=== PATIENT | female | born 1950 | race American Indian/Alaskan Native ===

== ENCOUNTER 2018-02-26 11:26 | Inpatient (IN) | payer MEDICARE ==
--- NOTE | 2018-02-26 15:20 | Emergency Department Report ---
ED Medical Clearance HPI - General Chief complaint: Medical Clearance Stated complaint: WITHDRAWLS/BODY PAIN Time Seen by Provider: 02/26/18 15:08 Source: patient Mode of arrival: Stretcher - History of Present Illness Initial comments: Patient is here for detox. on withdrawal from Oxycodone. Complaint: medical clearance request -: Gradual Reason for Medical Clearance: other (Oxycodone dependance) Place: home Alledged Intoxication: No Compliant with Home Medications: Yes Traumatic Symptoms: denies traumatic injury Associated Symptoms: palpitations, nausea/vomiting, other (diarrhea, pain all over) Treatments Prior to Arrival: none Home medications: Previous Rx's Medication Instructions Recorded Last Taken Type ALBUTEROL NEB's [Proventil 0.083% 2.5 mg IH Q4HRT PRN #1 nebu 01/29/18 Unknown Rx NEBS] Metoprolol [Lopressor TAB] 25 mg PO BID #60 tablet 01/29/18 Unknown Rx Sertraline [Zoloft] 50 mg PO QDAY #30 tablet 01/29/18 Unknown Rx dilTIAZem CD [Cardizem CD] 240 mg PO QDAY #30 capsule 01/29/18 Unknown Rx oxyCODONE /ACETAMINOPHEN [Percocet 1 tab PO Q6H PRN #10 tablet 01/29/18 Unknown Rx 5/325 mg] Allergies/Adverse reactions: Allergies Allergy/AdvReac Type Severity Reaction Status Date / Time No Known Allergies Allergy Unverified 01/26/18 13:56 ED Review of Systems ROS: Stated complaint: WITHDRAWLS/BODY PAIN Other details as noted in HPI Comment: All other systems reviewed and negative Constitutional: malaise, other (Pain all over her body). denies: chills, fever Eyes: denies: eye pain, eye discharge, vision change ENT: denies: ear pain, throat pain Respiratory: denies: cough, shortness of breath, wheezing Cardiovascular: palpitations. denies: chest pain Endocrine: no symptoms reported Gastrointestinal: nausea, vomiting, diarrhea. denies: abdominal pain Genitourinary: denies: urgency, dysuria, discharge Musculoskeletal: denies: back pain, joint swelling, arthralgia Skin: denies: rash, lesions Neurological: denies: headache, weakness, paresthesias Psychiatric: denies: anxiety, depression Hematological/Lymphatic: denies: easy bleeding, easy bruising ED Past Medical Hx - Past Medical History Hx Hypertension: Yes Hx Heart Attack/AMI: No Hx Congestive Heart Failure: Yes Hx Deep Vein Thrombosis: No Hx Pulmonary Embolism: No Hx GERD: Yes Hx Arthritis: Yes Hx Asthma: No Hx COPD: Yes Hx Tuberculosis: No Additional medical history: chronic back pain - Surgical History Past Surgical History?: Yes Hx Coronary Stent: No Hx Pacemaker: No Hx Internal Defibrillator: No Additional Surgical History: hernia repair and lower back/ cycst removal - Social History Smoking Status: Never Smoker Substance Use Type: Other - Medications Home Medications: Home Medications Medication Instructions Recorded Confirmed Last Taken Type ALBUTEROL NEB's [Proventil 0.083% 2.5 mg IH Q4HRT PRN #1 nebu 01/29/18 Unknown Rx NEBS] Metoprolol [Lopressor TAB] 25 mg PO BID #60 tablet 01/29/18 Unknown Rx Sertraline [Zoloft] 50 mg PO QDAY #30 tablet 01/29/18 Unknown Rx dilTIAZem CD [Cardizem CD] 240 mg PO QDAY #30 capsule 01/29/18 Unknown Rx oxyCODONE /ACETAMINOPHEN [Percocet 1 tab PO Q6H PRN #10 tablet 01/29/18 Unknown Rx 5/325 mg] ED Physical Exam - General Limitations: No Limitations General appearance: alert, in no apparent distress, anxious - Head Head exam: Present: atraumatic, normocephalic - Eye Eye exam: Present: normal appearance Pupils: Present: mydriatic - ENT ENT exam: Present: mucous membranes moist - Neck Neck exam: Present: normal inspection - Respiratory Respiratory exam: Present: normal lung sounds bilaterally. Absent: respiratory distress - Cardiovascular Cardiovascular Exam: Present: regular rate, normal rhythm. Absent: systolic murmur, diastolic murmur, rubs, gallop - GI/Abdominal GI/Abdominal exam: Present: soft, normal bowel sounds. Absent: tenderness, guarding - Extremities Exam Extremities exam: Present: normal inspection, normal capillary refill - Back Exam Back exam: Present: normal inspection - Neurological Exam Neurological exam: Present: alert, oriented X3 - Psychiatric Psychiatric exam: Present: normal affect, normal mood - Skin Skin exam: Present: warm, dry, intact, normal color. Absent: rash ED Course Vital Signs 02/26/18 02/26/18 02/26/18 11:44 14:28 17:50 Temperature 98.3 F 99.0 F Pulse Rate 89 75 Respiratory 20 17 17 Rate Blood Pressure 151/95 165/81 O2 Sat by Pulse 100 96 Oximetry - Consultations Consultation #1: 02/26/18 17:05 Dr Turner to admit. Consultation #2: 02/26/18 17:05 New vision case management specialist Mr Gui Connors will try to place patient tomorrow. ED Medical Decision Making - Lab Data Result diagrams: 02/27/18 04:34 02/27/18 04:34 Lab Results 02/26/18 02/26/18 02/26/18 Range/Units 15:26 15:26 15:26 WBC 7.6 (4.5-11.0) K/mm3 RBC 4.64 (3.65-5.03) M/mm3 Hgb 13.6 (10.1-14.3) gm/dl Hct 41.1 (30.3-42.9) % MCV 89 (79-97) fl MCH 29 (28-32) pg MCHC 33 (30-34) % RDW 16.3 H (13.2-15.2) % Plt Count 268 (140-440) K/mm3 Lymph % (Auto) 25.0 (13.4-35.0) % [place] % (Auto) 6.5 (0.0-7.3) % Eos % (Auto) 2.6 (0.0-4.3) % Baso % (Auto) 0.6 (0.0-1.8) % Lymph # 1.9 (1.2-5.4) K/mm3 [place] # 0.5 (0.0-0.8) K/mm3 Eos # 0.2 (0.0-0.4) K/mm3 Baso # 0.0 (0.0-0.1) K/mm3 Seg Neutrophils % 65.3 (40.0-70.0) % Seg Neutrophils # 4.9 (1.8-7.7) K/mm3 Sodium 142 (137-145) mmol/L Potassium 4.0 (3.6-5.0) mmol/L Chloride 100.1 (98-107) mmol/L Carbon Dioxide 26 (22-30) mmol/L Anion Gap 20 mmol/L BUN 14 (7-17) mg/dL Creatinine 1.1 (0.7-1.2) mg/dL Estimated GFR 60 ml/min BUN/Creatinine Ratio 13 % Glucose 88 (65-100) mg/dL Calcium 9.8 (8.4-10.2) mg/dL Total Bilirubin 0.40 (0.1-1.2) mg/dL AST 16 (5-40) units/L ALT 10 (7-56) units/L Alkaline Phosphatase 86 (35-129) units/L Total Protein 7.5 (6.3-8.2) g/dL Albumin 4.5 (3.9-5) g/dL Albumin/Globulin Ratio 1.5 % TSH 1.150 (0.270-4.200) mlU/mL Salicylates (2.8-20.0) mg/dL Acetaminophen (10.0-30.0) ug/mL Plasma/Serum Alcohol (0-0.07) % 02/26/18 02/26/18 02/26/18 Range/Units 15:26 15:26 15:26 WBC (4.5-11.0) K/mm3 RBC (3.65-5.03) M/mm3 Hgb (10.1-14.3) gm/dl Hct (30.3-42.9) % MCV (79-97) fl MCH (28-32) pg MCHC (30-34) % RDW (13.2-15.2) % Plt Count (140-440) K/mm3 Lymph % (Auto) (13.4-35.0) % [place] % (Auto) (0.0-7.3) % Eos % (Auto) (0.0-4.3) % Baso % (Auto) (0.0-1.8) % Lymph # (1.2-5.4) K/mm3 [place] # (0.0-0.8) K/mm3 Eos # (0.0-0.4) K/mm3 Baso # (0.0-0.1) K/mm3 Seg Neutrophils % (40.0-70.0) % Seg Neutrophils # (1.8-7.7) K/mm3 Sodium (137-145) mmol/L Potassium (3.6-5.0) mmol/L Chloride (98-107) mmol/L Carbon Dioxide (22-30) mmol/L Anion Gap mmol/L BUN (7-17) mg/dL Creatinine (0.7-1.2) mg/dL Estimated GFR ml/min BUN/Creatinine Ratio % Glucose (65-100) mg/dL Calcium (8.4-10.2) mg/dL Total Bilirubin (0.1-1.2) mg/dL AST (5-40) units/L ALT (7-56) units/L Alkaline Phosphatase (35-129) units/L Total Protein (6.3-8.2) g/dL Albumin (3.9-5) g/dL Albumin/Globulin Ratio % TSH (0.270-4.200) mlU/mL Salicylates < 0.3 L (2.8-20.0) mg/dL Acetaminophen < 5.0 L (10.0-30.0) ug/mL Plasma/Serum Alcohol < 0.01 (0-0.07) % - Medical Decision Making Opioid Withdrawal. Patient to be evaluated by [facility] tomorrow for placement. ED Disposition Clinical Impression: Narcotic dependence, Opioid withdrawal delirium, acute, hyperactive Disposition: OP ADMIT IP TO THIS HOSP Is pt being admited?: Yes Does the pt Need Aspirin: No Condition: Stable Time of Disposition: 17:02
[2018-02-26 15:50] LABS: Basophils % (Auto) 0.6 % (0.0-1.8); Eosinophils # (Auto) 0.2 K/mm3 (0.0-0.4); Eosinophils % (Auto) 2.6 % (0.0-4.3); Hematocrit 41.1 % (30.3-42.9); Hemoglobin 13.6 gm/dl (10.1-14.3); Lymphocytes # (Auto) 1.9 K/mm3 (1.2-5.4); Mean Corpuscular HGB Conc 33 % (30-34); Mean Corpuscular Volume 89 fl (79-97); Monocytes # (Auto) 0.5 K/mm3 (0.0-0.8); Monocytes % (Auto) 6.5 % (0.0-7.3); Platelet Count 268 K/mm3 (140-440); Red Blood Count 4.64 M/mm3 (3.65-5.03); Red Cell Distribution Width 16.3 % (13.2-15.2)
[2018-02-26] MEDS ORDERED: MORPHINE IV ONE (15:55)
[2018-02-26] MEDS ORDERED: ZOFRAN IV ONE (15:55)
[2018-02-26 16:06] LABS: Albumin 4.5 g/dL (3.9-5); Calcium 9.8 mg/dL (8.4-10.2)
--- NOTE | 2018-02-26 16:43 | XRay Report ---
FINAL REPORT EXAM: XR CHEST 1V AP HISTORY: Medical Clearance Psych COMPARISON: Chest radiograph performed on 01/27/2018 TECHNIQUE: Single frontal view of the chest FINDINGS: The cardiomediastinal silhouette is normal in appearance. The lungs are clear without focal consolidation. There is no pleural effusion or pneumothorax. There is no acute soft tissue or osseous abnormality. IMPRESSION: No acute cardiopulmonary disease.
--- NOTE | 2018-02-26 17:14 | History and Physical Report ---
History of Present Illness Date of examination: 02/26/18 Date of admission: 02/26/18 Chief complaint: Opiate dependence and wants he;p with withdrawing History of present illness: 67 y/o AAF with pmh of HTN Deprssion and severe LBP is here for detox. on withdrawal from Oxycodone.with medical clearance request.Patient appparently takes Oxycodone 30 mg po 4 times a day for LBP.Had back surgery.Also has RA for which she is not getting any treatment.Says she has side effects with Methotrexate. Compliant with Home Medications: Yes Traumatic Symptoms: denies traumatic injury Associated Symptoms: palpitations, nausea/vomiting, other (diarrhea, pain all over) Treatments Prior to Arrival: none Past Medical History Hx Hypertension: Yes Hx GERD: Yes Hx Arthritis: Yes--RA Additional medical history: chronic back pain Surgical History Past Surgical History?: Yes Additional Surgical History: hernia repair and lower back/ cycst removal Social History Smoking Status: Never Smoker Substance Use Type: Other Medications Home Medications: Home Medications Medication Instructions Recorded Confirmed Last Taken Type ALBUTEROL NEB's [Proventil 0.083% 2.5 mg IH Q4HRT PRN #1 nebu 01/29/18 Unknown Rx NEBS] Metoprolol [Lopressor TAB] 25 mg PO BID #60 tablet 01/29/18 Unknown Rx Sertraline [Zoloft] 50 mg PO QDAY #30 tablet 01/29/18 Unknown Rx dilTIAZem CD [Cardizem CD] 240 mg PO QDAY #30 capsule 01/29/18 Unknown Rx oxyCODONE /ACETAMINOPHEN [Percocet 1 tab PO Q6H PRN #10 tablet 01/29/18 Unknown Rx 5/325 mg] Review of Systems ROS: Stated complaint: WITHDRAWLS/BODY PAIN Other details as noted in HPI Comment: All other systems reviewed and negative Constitutional: malaise, other (Pain all over her body). denies: chills, fever Eyes: denies: eye pain, eye discharge, vision change ENT: denies: ear pain, throat pain Respiratory: denies: cough, shortness of breath, wheezing Cardiovascular: palpitations. denies: chest pain Endocrine: no symptoms reported Gastrointestinal: nausea, vomiting, diarrhea. denies: abdominal pain Genitourinary: denies: urgency, dysuria, discharge Musculoskeletal: denies: back pain, joint swelling, arthralgia Skin: denies: rash, lesions Neurological: denies: headache, weakness, paresthesias Psychiatric: denies: anxiety, depression Hematological/Lymphatic: denies: easy bleeding, easy bruising Medications and Allergies Allergies Allergy/AdvReac Type Severity Reaction Status Date / Time No Known Allergies Allergy Unverified 01/26/18 13:56 Home Medications Medication Instructions Recorded Confirmed Last Taken Type ALBUTEROL NEB's [Proventil 0.083% 2.5 mg IH Q4HRT PRN #1 nebu 01/29/18 Unknown Rx NEBS] Metoprolol [Lopressor TAB] 25 mg PO BID #60 tablet 01/29/18 Unknown Rx Sertraline [Zoloft] 50 mg PO QDAY #30 tablet 01/29/18 Unknown Rx dilTIAZem CD [Cardizem CD] 240 mg PO QDAY #30 capsule 01/29/18 Unknown Rx oxyCODONE /ACETAMINOPHEN [Percocet 1 tab PO Q6H PRN #10 tablet 01/29/18 Unknown Rx 5/325 mg] Active Meds: Active Medications Buprenorphine HCl (Suboxone 2 Mg-0.5 Mg) 2 each SL Q8HR ANGELES Stop: 02/27/18 06:01 Exam - Constitutional Vitals: Temp Pulse Resp BP Pulse Ox 98.3 F 89 17 151/95 100 02/26/18 11:44 02/26/18 11:44 02/26/18 14:28 02/26/18 11:44 02/26/18 11:44 General appearance: Present: no acute distress, well-nourished - EENT Eyes: Present: PERRL ENT: hearing intact, clear oral mucosa - Neck Neck: Present: supple, normal ROM - Respiratory Respiratory effort: normal Respiratory: bilateral: CTA - Cardiovascular Heart rate: 78 Rhythm: regular Heart Sounds: Present: S1 & S2. Absent: rub, click - Extremities Extremities: pulses symmetrical, No edema Peripheral Pulses: within normal limits - Abdominal General gastrointestinal: Present: soft, non-tender, non-distended, normal bowel sounds Female genitourinary: Present: normal - Integumentary Integumentary: Present: clear, warm, dry - Musculoskeletal Musculoskeletal: gait normal, strength equal bilaterally - Psychiatric Psychiatric: appropriate mood/affect, intact judgment & insight - Neurologic Neurologic: CNII-XII intact, moves all extremities - Allied Health Allied health notes reviewed: nursing, case management Results - Labs CBC & Chem 7: 02/27/18 04:34 02/27/18 04:34 Labs: Laboratory Last Values WBC 7.6 K/mm3 (4.5-11.0) 02/26/18 15:26 RBC 4.64 M/mm3 (3.65-5.03) 02/26/18 15:26 Hgb 13.6 gm/dl (10.1-14.3) 02/26/18 15:26 Hct 41.1 % (30.3-42.9) 02/26/18 15:26 MCV 89 fl (79-97) 02/26/18 15:26 MCH 29 pg (28-32) 02/26/18 15:26 MCHC 33 % (30-34) 02/26/18 15:26 RDW 16.3 % (13.2-15.2) H 02/26/18 15:26 Plt Count 268 K/mm3 (140-440) 02/26/18 15:26 Lymph % (Auto) 25.0 % (13.4-35.0) 02/26/18 15:26 [place] % (Auto) 6.5 % (0.0-7.3) 02/26/18 15:26 Eos % (Auto) 2.6 % (0.0-4.3) 02/26/18 15:26 Baso % (Auto) 0.6 % (0.0-1.8) 02/26/18 15:26 Lymph # 1.9 K/mm3 (1.2-5.4) 02/26/18 15:26 [place] # 0.5 K/mm3 (0.0-0.8) 02/26/18 15:26 Eos # 0.2 K/mm3 (0.0-0.4) 02/26/18 15:26 Baso # 0.0 K/mm3 (0.0-0.1) 02/26/18 15:26 Seg Neutrophils % 65.3 % (40.0-70.0) 02/26/18 15:26 Seg Neutrophils # 4.9 K/mm3 (1.8-7.7) 02/26/18 15:26 Sodium 142 mmol/L (137-145) 02/26/18 15:26 Potassium 4.0 mmol/L (3.6-5.0) 02/26/18 15:26 Chloride 100.1 mmol/L (98-107) 02/26/18 15:26 Carbon Dioxide 26 mmol/L (22-30) 02/26/18 15:26 Anion Gap 20 mmol/L 02/26/18 15:26 BUN 14 mg/dL (7-17) 02/26/18 15:26 Creatinine 1.1 mg/dL (0.7-1.2) 02/26/18 15:26 Estimated GFR 60 ml/min 02/26/18 15:26 BUN/Creatinine Ratio 13 % 02/26/18 15:26 Glucose 88 mg/dL (65-100) 02/26/18 15:26 Calcium 9.8 mg/dL (8.4-10.2) 02/26/18 15:26 Total Bilirubin 0.40 mg/dL (0.1-1.2) 02/26/18 15:26 AST 16 units/L (5-40) 02/26/18 15:26 ALT 10 units/L (7-56) 02/26/18 15:26 Alkaline Phosphatase 86 units/L (35-129) 02/26/18 15:26 Total Protein 7.5 g/dL (6.3-8.2) 02/26/18 15:26 Albumin 4.5 g/dL (3.9-5) 02/26/18 15:26 Albumin/Globulin Ratio 1.5 % 02/26/18 15:26 TSH 1.150 mlU/mL (0.270-4.200) 02/26/18 15:26 Salicylates < 0.3 mg/dL (2.8-20.0) L 02/26/18 15:26 Acetaminophen < 5.0 ug/mL (10.0-30.0) L 02/26/18 15:26 Plasma/Serum Alcohol < 0.01 % (0-0.07) 02/26/18 15:26 - Imaging and Cardiology Chest x-ray: report reviewed (NAF) Assessment and Plan Advance Directives: Yes (FC) VTE prophylaxis?: Chemical - Patient Problems (1) Opiate dependence Current Visit: Yes Status: Chronic Qualifiers: Substance use status: uncomplicated Qualified Code(s): F11.20 - Opioid dependence, uncomplicated Plan to address problem: Patient inited on Suboxone for 3 days. 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
[2018-02-26] MEDS ORDERED: ZOFRAN IV PRN (17:30)
[2018-02-26] MEDS ORDERED: ZOLOFT ONE (18:57)
[2018-02-26] MEDS: SUBOXONE 2 MG-0.5 MG SL SCH (18:58)
[2018-02-26] MEDS: ZOLOFT PO SCH (18:59)
[2018-02-26] MEDS: CARDIZEM CD PO SCH (18:59)
[2018-02-26] MEDS: AMBIEN PO PRN (22:53)
[2018-02-26] MEDS: LOPRESSOR PO SCH (22:53)
[2018-02-26] MEDS: SODIUM CHLORIDE FLUSH SYRINGE 10 ML IV SCH (22:54)
[2018-02-27] MEDS: SUBOXONE 2 MG-0.5 MG SL SCH ×4 (03:03→18:25)
[2018-02-27 05:10] LABS: Basophils # (Auto) 0.1 K/mm3 (0.0-0.1); Basophils % (Auto) 0.7 % (0.0-1.8); Eosinophils # (Auto) 0.4 K/mm3 (0.0-0.4); Eosinophils % (Auto) 4.4 % (0.0-4.3); Hematocrit 37.6 % (30.3-42.9); Hemoglobin 12.4 gm/dl (10.1-14.3); Lymphocytes # (Auto) 1.8 K/mm3 (1.2-5.4); Lymphocytes % (Auto) 21.7 % (13.4-35.0); Mean Corpuscular HGB Conc 33 % (30-34); Mean Corpuscular Volume 89 fl (79-97); Monocytes # (Auto) 0.8 K/mm3 (0.0-0.8); Monocytes % (Auto) 9.4 % (0.0-7.3); Platelet Count 222 K/mm3 (140-440); Red Blood Count 4.21 M/mm3 (3.65-5.03); Red Cell Distribution Width 16.4 % (13.2-15.2)
[2018-02-27 05:29] LABS: Albumin 4.5 g/dL (3.9-5); Calcium 9.4 mg/dL (8.4-10.2)
[2018-02-27 06:09] LABS: Amphetamine Screen,Urine PRESUMPTIVE NEGATIVE; Cannabinoid Screen,Urine PRESUMPTIVE NEGATIVE; Cocaine Screen,Urine PRESUMPTIVE NEGATIVE; Methadone Screen,Urine PRESUMPTIVE NEGATIVE
[2018-02-27 06:14] LABS: Bilirubin,Urine NEG (Negative); Blood,Urine NEG (Negative); Color,Urine Yellow (Yellow); Hyaline Casts,Urine 3 /LPF; Mucus,Urine FEW /HPF; Urobilinogen,Urine < 2.0 mg/dL (<2.0)
[2018-02-27 06:41] LABS: Benzodiazepines Screen,Urine PRESUMPTIVE POSITIVE; Opiate Screen,Urine PRESUMPTIVE POSITIVE
[2018-02-27] MEDS: LOPRESSOR PO SCH ×3 (06:56→21:49)
[2018-02-27] MEDS: TYLENOL PO PRN (06:57)
[2018-02-27] MEDS ORDERED: LOVENOX SUB-Q SCH (10:00)
[2018-02-27] MEDS: ZOLOFT PO SCH (10:46)
[2018-02-27] MEDS: PEPCID PO SCH ×2 (10:46→21:49)
[2018-02-27] MEDS: FOLVITE PO SCH (10:46)
[2018-02-27] MEDS: CARDIZEM CD PO SCH (10:47)
[2018-02-27] MEDS: LOVENOX SUB-Q SCH (10:47)
[2018-02-27] MEDS: SODIUM CHLORIDE FLUSH SYRINGE 10 ML IV SCH ×2 (10:52→22:00)
[2018-02-27] MEDS ORDERED: AFLURIA QUAD 2018-2019 SYRINGE IM ONE (12:00)
[2018-02-27] MEDS: METHOTREXATE PO SCH (13:00)
--- NOTE | 2018-02-27 15:19 | Progress Note ---
Assessment and Plan / Opiate dependence wants to get detoxed Patient initiated on Suboxone protocol for 3 days. monitor at [facility] for with drawl / HTN (hypertension) COnt home antihypertensives, adjust dose as needed / COPD with chronic respiratory failure cont nebs, supplemental o2 On home O2 2L / Rheumatoid arteritis Patient having swan neck deformities in both hands involving 2nd 3rd and 4 th fingers Methotrexate started at low dose once weekly / Depression, not suicidal On Zoloft /Saúl, vasomotor nephropathy monitor BMP, avoid nephrotoxins, will give gentle hydration if no improvement / DVT prophylaxis On Lovenox Subjective Date of service: 02/27/18 Interval history: pt seen and examined c/o anxiety and hand tremors, no chest pain On 2L home O2, tolerating diet Objective - Constitutional Vitals: Vital Signs - 12hr 02/27/18 02/27/18 02/27/18 05:59 06:56 06:57 Temperature 97.9 F Pulse Rate 81 Respiratory 16 20 Rate Blood Pressure 181/96 181/96 O2 Sat by Pulse 93 Oximetry 02/27/18 10:00 Temperature Pulse Rate Respiratory 22 Rate Blood Pressure O2 Sat by Pulse Oximetry General appearance: Present: no acute distress, well-nourished - EENT Eyes: PERRL, EOM intact ENT: hearing intact, clear oral mucosa Ears: bilateral: normal - Neck Neck: supple, normal ROM - Respiratory Respiratory effort: normal Respiratory: bilateral: CTA - Cardiovascular Rhythm: regular Heart Sounds: Present: S1 & S2. Absent: gallop, rub Extremities: pulses intact, No edema, normal color, Full ROM - Gastrointestinal General gastrointestinal: Present: soft, non-tender, non-distended, normal bowel sounds - Integumentary Integumentary: clear, warm, dry - Musculoskeletal Musculoskeletal: 1, strength equal bilaterally - Neurologic Neurologic: moves all extremities - Psychiatric Psychiatric: intact judgment & insight, memory intact, other (anxious) - Labs CBC & Chem 7: 02/27/18 04:34 02/28/18 05:28 Labs: Abnormal lab results 02/26/18 02/26/18 02/26/18 Range/Units 15:26 15:26 15:26 RDW 16.3 H (13.2-15.2) % [place] % (Auto) (0.0-7.3) % Eos % (Auto) (0.0-4.3) % Carbon Dioxide (22-30) mmol/L BUN (7-17) mg/dL Creatinine (0.7-1.2) mg/dL Glucose (65-100) mg/dL Hemoglobin A1c (4-6) % Salicylates < 0.3 L (2.8-20.0) mg/dL Acetaminophen < 5.0 L (10.0-30.0) ug/mL 02/26/18 02/27/18 02/27/18 Range/Units 15:26 04:34 04:34 RDW 16.4 H (13.2-15.2) % [place] % (Auto) 9.4 H (0.0-7.3) % Eos % (Auto) 4.4 H (0.0-4.3) % Carbon Dioxide 31 H (22-30) mmol/L BUN 36 H (7-17) mg/dL Creatinine 1.4 H (0.7-1.2) mg/dL Glucose 118 H (65-100) mg/dL Hemoglobin A1c 6.3 H (4-6) % Salicylates (2.8-20.0) mg/dL Acetaminophen (10.0-30.0) ug/mL - Imaging and cardiology Chest x-ray: report reviewed (no acute process)
[2018-02-27] MEDS: HALDOL PO PRN (19:33)
[2018-02-27] MEDS: AMBIEN PO PRN (21:51)
[2018-02-28] MEDS: HALDOL PO PRN ×3 (03:15→17:02)
[2018-02-28 06:11] LABS: Calcium 9.3 mg/dL (8.4-10.2)
[2018-02-28] MEDS: TYLENOL PO PRN ×2 (08:53→14:35)
[2018-02-28] MEDS: SUBOXONE 2 MG-0.5 MG SL SCH ×3 (09:04→21:43)
[2018-02-28] MEDS: PEPCID PO SCH ×2 (09:06→21:15)
[2018-02-28] MEDS: CARDIZEM CD PO SCH (09:06)
[2018-02-28] MEDS: LOPRESSOR PO SCH ×2 (09:06→21:15)
[2018-02-28] MEDS: ZOLOFT PO SCH (09:06)
[2018-02-28] MEDS: SODIUM CHLORIDE FLUSH SYRINGE 10 ML IV SCH ×2 (09:07→21:50)
[2018-02-28] MEDS: FOLVITE PO SCH (09:07)
[2018-02-28] MEDS: LOVENOX SUB-Q SCH (09:07)
[2018-02-28] MEDS ORDERED: AFLURIA QUAD 2018-2019 SYRINGE IM ONE (12:00)
[2018-02-28] MEDS: CATAPRES-TTS PATCH TD SCH (14:05)
[2018-02-28] MEDS ORDERED: SUBOXONE 2 MG-0.5 MG SL ONE (17:10)
[2018-02-28] MEDS ORDERED: HALDOL PO PRN (17:51)
--- NOTE | 2018-02-28 17:59 | Progress Note ---
Assessment and Plan / Opiate dependence wants to get detoxed Patient initiated on Suboxone protocol for 3 days. [facility] / HTN (hypertension) COnt home antihypertensives, adjust dose as needed / COPD with chronic respiratory failure cont nebs, supplemental o2 On home O2 2L / Rheumatoid arteritis Patient having swan neck deformities in both hands involving 2nd 3rd and 4 th fingers Methotrexate started at low dose once weekly / Depression, not suicidal On Zoloft /Saúl, vasomotor nephropathy monitor BMP, avoid nephrotoxins, will give gentle hydration / DVT prophylaxis On Lovenox Subjective Date of service: 02/28/18 Interval history: pt seen and examined c/o anxiety and hand tremors, no chest pain On 2L home O2, tolerating diet Objective - Exam Narrative Exam: General appearance: Present: no acute distress, well-nourished - EENT Eyes: PERRL, EOM intact ENT: hearing intact, clear oral mucosa Ears: bilateral: normal - Neck Neck: supple, normal ROM - Respiratory Respiratory effort: normal Respiratory: bilateral: CTA - Cardiovascular Rhythm: regular Heart Sounds: Present: S1 & S2. Absent: gallop, rub Extremities: pulses intact, No edema, normal color, Full ROM - Gastrointestinal General gastrointestinal: Present: soft, non-tender, non-distended, normal bowel sounds - Integumentary Integumentary: clear, warm, dry - Musculoskeletal Musculoskeletal: 1, strength equal bilaterally - Neurologic Neurologic: moves all extremities - Psychiatric Psychiatric: intact judgment & insight, memory intact, other (anxious) - Constitutional Vitals: Vital Signs - 12hr 02/28/18 02/28/18 02/28/18 08:00 11:26 11:46 Temperature 98.6 F Pulse Rate 67 77 Respiratory 20 22 Rate Blood Pressure 171/78 180/91 O2 Sat by Pulse 100 94 97 Oximetry 02/28/18 14:05 Temperature Pulse Rate 78 Respiratory Rate Blood Pressure 180/91 O2 Sat by Pulse Oximetry - Labs CBC & Chem 7: 02/27/18 04:34 02/28/18 05:28 Labs: Abnormal lab results 02/28/18 Range/Units 05:28 BUN 32 H (7-17) mg/dL Creatinine 1.3 H (0.7-1.2) mg/dL Glucose 141 H (65-100) mg/dL
[2018-02-28] MEDS: AMBIEN PO PRN (21:15)
[2018-02-28] MEDS: SODIUM CHLORIDE FLUSH SYRINGE 10 ML IV PRN (22:18)
[2018-03-01] MEDS: TYLENOL PO PRN (07:00)
[2018-03-01] MEDS: CARDIZEM CD PO SCH (10:19)
[2018-03-01] MEDS: PEPCID PO SCH ×2 (10:19→21:39)
[2018-03-01] MEDS: FOLVITE PO SCH (10:19)
[2018-03-01] MEDS: ZOLOFT PO SCH (10:19)
[2018-03-01] MEDS: LOPRESSOR PO SCH ×2 (10:19→21:43)
[2018-03-01] MEDS: LOVENOX SUB-Q SCH (10:20)
[2018-03-01] MEDS: SODIUM CHLORIDE FLUSH SYRINGE 10 ML IV SCH ×2 (10:24→21:40)
[2018-03-01] MEDS ORDERED: BENTYL PO PRN (10:37)
[2018-03-01] MEDS: VISTARIL PO PRN (11:28)
[2018-03-01] MEDS: SUBOXONE 2 MG-0.5 MG SL SCH (11:34)
[2018-03-01] MEDS ORDERED: NACL 0.9% 1000 ML 1,000 ML IV SCH (13:00)
[2018-03-01] MEDS: LIBRIUM PO PRN ×2 (13:56→20:35)
--- NOTE | 2018-03-01 15:09 | Consultation ---
History of Present Illness Consult date: 03/01/18 Requesting physician: KAVITA HORAN Reason for consult: COPD History of present illness: PULMONARY/CCM CONSULT NOTE (Full dictation # [id number]) Please see dictated notes for full details Medications and Allergies Allergies Allergy/AdvReac Type Severity Reaction Status Date / Time No Known Allergies Allergy Unverified 01/26/18 13:56 Home Medications Medication Instructions Recorded Confirmed Last Taken Type ALBUTEROL NEB's [Proventil 0.083% 2.5 mg IH Q4HRT PRN #1 nebu 01/29/18 Unknown Rx NEBS] Metoprolol [Lopressor TAB] 25 mg PO BID #60 tablet 01/29/18 Unknown Rx Sertraline [Zoloft] 50 mg PO QDAY #30 tablet 01/29/18 Unknown Rx dilTIAZem CD [Cardizem CD] 240 mg PO QDAY #30 capsule 01/29/18 Unknown Rx oxyCODONE /ACETAMINOPHEN [Percocet 1 tab PO Q6H PRN #10 tablet 01/29/18 Unknown Rx 5/325 mg] Active Meds: Active Medications Acetaminophen (Tylenol) 650 mg PO Q4H PRN PRN Reason: Pain MILD(1-3)/Fever >100.5/AMOR Last Admin: 03/01/18 07:00 Dose: 650 mg Documented by: Albuterol (Proventil) 2.5 mg IH Q4HRT PRN PRN Reason: Shortness Of Breath Chlordiazepoxide HCl (Librium) 25 mg PO Q6H PRN PRN Reason: MODERATE/SEVERE ANXIETY Last Admin: 03/01/18 13:56 Dose: 25 mg Documented by: Clonidine HCl (Catapres-Tts Patch) 0.2 mg TD Sa [facility] Last Admin: 02/28/18 14:05 Dose: 0.2 mg Documented by: Dicyclomine HCl (Bentyl) 20 mg PO Q6H PRN PRN Reason: Abdominal Discomfort Diltiazem HCl (Cardizem Cd) 240 mg PO QDAY [facility] Last Admin: 03/01/18 10:19 Dose: 240 mg Documented by: Enoxaparin Sodium (Lovenox) 40 mg SUB-Q QDAY@1000 [facility] Last Admin: 03/01/18 10:20 Dose: 40 mg Documented by: Famotidine (Pepcid) 20 mg PO BID [facility] Last Admin: 03/01/18 10:19 Dose: 20 mg Documented by: Folic Acid (Folvite) 1 mg PO QDAY [facility] Last Admin: 03/01/18 10:19 Dose: 1 mg Documented by: Hydroxyzine Pamoate (Vistaril) 50 mg PO Q6H PRN PRN Reason: Anxiety Mild Last Admin: 03/01/18 11:28 Dose: 50 mg Documented by: Sodium Chloride (Nacl 0.9% 1000 Ml) 1,000 mls @ 75 mls/hr IV DIRECT [facility] Last Admin: 03/01/18 13:07 Dose: 75 mls/hr Documented by: Methocarbamol (Robaxin) 750 mg PO Q6H PRN PRN Reason: Muscle aches Methotrexate (Methotrexate (Dose Weekly Only)) 7.5 mg PO Fr@1000 [facility] Last Admin: 02/27/18 13:00 Dose: 7.5 mg Documented by: Metoprolol Tartrate (Lopressor) 25 mg PO BID [facility] Last Admin: 03/01/18 10:19 Dose: 25 mg Documented by: Ondansetron HCl (Zofran) 4 mg IV Q8H PRN PRN Reason: Nausea And Vomiting Last Admin: 02/28/18 22:17 Dose: 4 mg Documented by: Sertraline HCl (Zoloft) 50 mg PO QDAY [facility] Last Admin: 03/01/18 10:19 Dose: 50 mg Documented by: Sodium Chloride (Sodium Chloride Flush Syringe 10 Ml) 10 ml IV BID [facility] Last Admin: 03/01/18 10:24 Dose: 10 ml Documented by: Sodium Chloride (Sodium Chloride Flush Syringe 10 Ml) 10 ml IV PRN PRN PRN Reason: LINE FLUSH Last Admin: 02/28/18 22:18 Dose: 10 ml Documented by: Zolpidem Tartrate (Ambien) 10 mg PO QHS PRN PRN Reason: Insomnia Last Admin: 02/28/18 21:15 Dose: 10 mg Documented by: Physical Examination Vital signs: Vital Signs Temp Pulse Resp BP Pulse Ox 98.3 F 89 20 151/95 100 02/26/18 11:44 02/26/18 11:44 02/26/18 11:44 02/26/18 11:44 02/26/18 11:44 Results - Laboratory Findings CBC and BMP: 02/27/18 04:34 02/28/18 05:28 Abnormal lab findings: Abnormal Labs 02/26/18 02/26/18 02/26/18 15:26 15:26 15:26 RDW 16.3 H [place] % (Auto) Eos % (Auto) Carbon Dioxide BUN Creatinine Glucose Hemoglobin A1c Salicylates < 0.3 L Acetaminophen < 5.0 L 02/26/18 02/27/18 02/27/18 15:26 04:34 04:34 RDW 16.4 H [place] % (Auto) 9.4 H Eos % (Auto) 4.4 H Carbon Dioxide 31 H BUN 36 H Creatinine 1.4 H Glucose 118 H Hemoglobin A1c 6.3 H Salicylates Acetaminophen 02/28/18 05:28 RDW [place] % (Auto) Eos % (Auto) Carbon Dioxide BUN 32 H Creatinine 1.3 H Glucose 141 H Hemoglobin A1c Salicylates Acetaminophen
--- NOTE | 2018-03-01 16:08 | Progress Note ---
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 involving 2nd 3rd and 4 th fingers Methotrexate started at low dose once weekly / Depression, not suicidal On Zoloft /Saúl, vasomotor nephropathy monitor BMP, avoid nephrotoxins, cont gentle hydration / DVT prophylaxis On Lovenox Subjective Date of service: 03/01/18 Interval history: pt seen and examined no chest pain, c/o SOB and anxious that she might face withdrawal once she goes home On 2L home O2, tolerating diet Objective - Exam Narrative Exam: General appearance: Present: no acute distress, well-nourished - EENT Eyes: PERRL, EOM intact ENT: hearing intact, clear oral mucosa Ears: bilateral: normal - Neck Neck: supple, normal ROM - Respiratory Respiratory effort: normal Respiratory: bilateral: CTA - Cardiovascular Rhythm: regular Heart Sounds: Present: S1 & S2. Absent: gallop, rub Extremities: pulses intact, No edema, normal color, Full ROM - Gastrointestinal General gastrointestinal: Present: soft, non-tender, non-distended, normal bowel sounds - Integumentary Integumentary: clear, warm, dry - Musculoskeletal Musculoskeletal: 1, strength equal bilaterally - Neurologic Neurologic: moves all extremities - Psychiatric Psychiatric: intact judgment & insight, memory intact, other (anxious) - Constitutional Vitals: Vital Signs - 12hr 03/01/18 03/01/18 03/01/18 04:18 10:19 11:21 Temperature 98.3 F 98.5 F Pulse Rate 84 76 Respiratory 24 20 Rate Blood Pressure 160/80 148/84 154/91 O2 Sat by Pulse 97 96 Oximetry - Labs CBC & Chem 7: 02/27/18 04:34 02/28/18 05:28
--- NOTE | 2018-03-01 19:49 | Consultation ---
PULMONARY CONSULTATION CONSULTING PHYSICIAN: Dr. Turner. REASON FOR CONSULTATION: Acute COPD exacerbation. CHIEF COMPLAINT AND HISTORY OF PRESENT ILLNESS: As follows: The patient is a 67-year-old -[place] female, past medical history significant amongst other things for a diagnosis of home oxygen dependent. She tells me COPD, but also history of substance abuse who states that she was at a facility for detoxification and treatment of opiate addiction. She states that the new medication was started; however, when she took the medication she started feeling very bad, she was no longer herself. She developed a little bit of heaviness in her left chest. She denied any nausea, vomiting, or overt aspiration. For some reason, the symptoms progressed to a point where she was brought into the Emergency Room for evaluation. On evaluation in the Emergency Room, she was diagnosed with COPD exacerbation and opioid withdrawal on admission. We are asked to assist with management of chronic COPD symptoms. When I stopped by to see her, she was resting in bed, breathing was a little bit labored, but not far from her baseline. She was on supplemental oxygen. The chest pain had gone. She denied any cough or expectoration. She denied fevers or chills. She was feeling better from her prior symptoms post-administration of the said medication. The patient tells me that she is not a current tobacco abuser, but she does have a 10+ pack year tobacco smoking history. That really is as much of the history of presentation as I have. PAST MEDICAL HISTORY: Again, significant for chronic obstructive lung disease as well as history of chronic low back pain, history of hypertension, congestive heart failure, gastroesophageal reflux disease, arthritis. PAST SURGICAL HISTORY: She has had a hernia repaired and lower back surgery. MEDICATIONS: She was on at the time I stopped by to see were reviewed, pertinent medications include the following: Tylenol 650 mg p.o. q.4 hours p.r.n. mild pain and fevers, p.r.n. albuterol 2.5 mg nebulized q.4 hours for shortness of breath, Librium 25 mg p.o. q.6 hours p.r.n. agitation, anxiety; Catapres patch 0.2 mg transdermally q. weekly, dicyclomine 20 mg p.o. q.6 hours p.r.n. abdominal discomfort, pain; Diltiazem 240 mg extended release p.o. daily, Lovenox 40 mg subcutaneous daily, Pepcid 20 mg p.o. b.i.d., folic acid 1 mg p.o. daily, Vistaril 50 mg p.o. q.6 hours p.r.n. anxiety, Robaxin 750 mg p.o. q.6 hours p.r.n. muscle aches/spasms, methotrexate 7.5 mg p.o. every Friday, Lopressor 25 mg p.o. b.i.d., Zofran 4 mg IV q.8 hours p.r.n. nausea and vomiting, Zoloft 50 mg p.o. daily, Ambien 10 mg p.o. at bedtime p.r.n. anxiety. ALLERGIES: No known drug allergies. DIET: Well-built lady, slightly obese. Denies acute weight loss or gain in the preceding few weeks to months. FAMILY AND SOCIAL HISTORY: Apparently was at a facility for drug withdrawal. She does have a 10+ pack year remote tobacco smoking history. Denies current alcohol, tobacco, illicit drug use or abuse. REVIEW OF SYSTEMS: No loss of consciousness. No new onset seizures. No new onset focal weakness. No gross hematochezia or melena. No gross hematuria. She denies heat or cold intolerance. Denies polydipsia or polyuria. She did complain of the chest tightness. She complained of the abdominal pain and chronic back pain. No seizures. Complete 13-system review of systems obtained. Pertinent positives and/or negatives as in body of history above, otherwise noncontributory. PHYSICAL EXAMINATION: VITAL SIGNS: At presentation; she was afebrile, temperature 98.3 degrees Fahrenheit, pulse of 89, respiratory rate of 20, blood pressure 151/95, oxygen sats 100%, inspired oxygen concentration at that time was not recorded. When I saw her, she was 96% on 2 liters nasal cannula. GENERAL: Elderly looking -[place] female, normocephalic, atraumatic, talking to me with mildly increased respiratory effort at rest. HEAD, EYES, EARS, NOSE AND THROAT: She is anicteric. No conjunctival erythema. Oropharynx is moist, is a Mallampati #3 oropharynx. She has mild oropharyngeal pallor, grossly no jugular venous distention, no palpable lymph nodes in the supraclavicular or submandibular lymph node chains. LUNGS: Auscultation of both lung dow significant mostly for diminished bilateral breath sounds, severely diminished bilateral air movement with a prolonged expiratory phase. HEART: Sounds 1 and 2 are heard. They were regular in rate and rhythm at time of my evaluation without rubs or murmurs. ABDOMEN: Soft, full, bowel sounds are positive, nontender, no palpable hepatosplenomegaly. EXTREMITIES: Without overt digital clubbing, cyanosis, no pedal edema. The skin is of normal turgor without overt cellulitis or rash. NEUROLOGIC: Pupils are equal, round, about 3 mm, reactive to light. Extraocular muscle movements are intact. She moves all 4 extremities spontaneously. No fasciculations. No spasticity. LABORATORY DATA: From my review; admission white cell count 7600, hemoglobin 13.6, hematocrit 41.1, platelet count 268, no band forms reported. No manual differential. Serum sodium 142, potassium 4.0, chloride 100, bicarbonate 26, BUN 14, creatinine 1.1, glucose was 88. Liver function tests otherwise within normal limits. Hemoglobin A1c 6.3. Urinalysis shows trace leukocyte esterase without any bacteria and 5 white cells per high power field. Aspirin, Tylenol, and alcohol level were undetectable. Urine drug screen was presumptive positive for benzos and for opiates. No microbiology studies for my review. A chest x-ray was done. I have reviewed the chest x-ray as well as the radiologist's interpretation and I do agree with it, no acute cardiopulmonary process; however, there is obvious hyperinflation with flattening of the right hemidiaphragm and widened rib spaces with chronic obstructive lung pattern. No focal infiltrates. ASSESSMENT: 1. Opiate withdrawal. 2. Chronic back pain. 3. Acute chronic obstructive pulmonary disease with mild exacerbation. 4. Gastroesophageal reflux disease. 5. Cardiomyopathy. 6. Hypertension. 7. Arthritis. 8. Chronic back pain. 9. Acute kidney injury with a serum creatinine of 1.4 and a BUN of 36 as of the forth. PLAN: I do not feel that she would need any systemic steroids. She is not too far from her baseline and we certainly do not want to precipitate any psychotic behavior in her. I will; however, put her on long-acting bronchodilators as well as inhaled corticosteroids and then from the p.r.n. albuterol treatments. We still need to check closely for drug withdrawal symptoms. Oxygen will be weaned to keep sats greater than or equal to about 90%. Aspiration precautions will be maintained. Chronic disease medications should be reinstituted and I will leave that up to the attending physician. She is appropriately on GI and DVT prophylaxis. Flu and pneumonia vaccination will be addressed per protocol. Thank you very much for the consult Dr. Turner. We will follow along. We will make further recommendations as the picture progresses/becomes clearer. JOB# [id number] JIM/SUSAN MTDMercy
[2018-03-01] MEDS: AMBIEN PO PRN (21:43)
[2018-03-01] MEDS: PULMICORT IH SCH (21:55)
[2018-03-01] MEDS: BROVANA NEBU IH SCH (21:55)
[2018-03-01] MEDS: ROBAXIN PO PRN (21:55)
[2018-03-02] MEDS: FOLVITE PO SCH (09:38)
[2018-03-02] MEDS: LOVENOX SUB-Q SCH (09:38)
[2018-03-02] MEDS: LOPRESSOR PO SCH ×2 (09:38→21:51)
[2018-03-02] MEDS: ZOLOFT PO SCH (09:39)
[2018-03-02] MEDS: CARDIZEM CD PO SCH (09:39)
[2018-03-02] MEDS: PEPCID PO SCH ×2 (09:39→21:51)
[2018-03-02] MEDS: SODIUM CHLORIDE FLUSH SYRINGE 10 ML IV SCH ×2 (09:40→21:52)
[2018-03-02] MEDS: BROVANA NEBU IH SCH ×2 (10:08→20:16)
[2018-03-02] MEDS: PULMICORT IH SCH ×2 (10:08→20:16)
[2018-03-02] MEDS ORDERED: LIBRIUM PO PRN (10:37)
[2018-03-02 11:07] LABS: BUN/Creatinine Ratio 24; Blood Urea Nitrogen 22 mg/dL (7-17); Calcium 9.1 mg/dL (8.4-10.2); Hemolysis Index 8
[2018-03-02] MEDS: VISTARIL PO PRN (11:28)
[2018-03-02] MEDS: TYLENOL PO PRN (11:28)
[2018-03-02] MEDS: LIBRIUM PO PRN ×3 (12:54→23:45)
--- NOTE | 2018-03-02 15:51 | Progress Note ---
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 involving 2nd 3rd and 4 th fingers Methotrexate started at low dose once weekly / Depression, not suicidal On Zoloft /Saúl, vasomotor nephropathy monitor BMP, avoid nephrotoxins, improved with gentle hydration / DVT prophylaxis On Lovenox Subjective Date of service: 03/02/18 Interval history: pt seen and examined no chest pain, c/o anxiety, breathing stable On 2L home O2, tolerating diet Objective - Exam Narrative Exam: General appearance: Present: no acute distress, well-nourished - EENT Eyes: PERRL, EOM intact ENT: hearing intact, clear oral mucosa Ears: bilateral: normal - Neck Neck: supple, normal ROM - Respiratory Respiratory effort: normal Respiratory: bilateral: CTA - Cardiovascular Rhythm: regular Heart Sounds: Present: S1 & S2. Absent: gallop, rub Extremities: pulses intact, No edema, normal color, Full ROM - Gastrointestinal General gastrointestinal: Present: soft, non-tender, non-distended, normal bowel sounds - Integumentary Integumentary: clear, warm, dry - Musculoskeletal Musculoskeletal: 1, strength equal bilaterally - Neurologic Neurologic: moves all extremities - Psychiatric Psychiatric: intact judgment & insight, memory intact, other (anxious) - Constitutional Vitals: Vital Signs - 12hr 03/02/18 03/02/18 04:56 09:38 Temperature 98.3 F Pulse Rate 72 72 Respiratory 24 Rate Blood Pressure 152/73 152/73 O2 Sat by Pulse 96 Oximetry - Labs CBC & Chem 7: 02/27/18 04:34 03/02/18 10:31 Labs: Abnormal lab results 03/02/18 Range/Units 10:31 BUN 22 H (7-17) mg/dL Glucose 117 H (65-100) mg/dL
--- NOTE | 2018-03-02 19:01 | Progress Note ---
Assessment and Plan Patient sleeping at this time. No acute respiratory distress. On 2 litres O2.O2 saturation 96%. - Patient Problems (1) COPD (chronic obstructive pulmonary disease) Current Visit: No Status: Chronic Plan to address problem: O2 2 litres via nasal canula. Brovanna/Budesonide aerosol treatments q 12 hours. Albuterol inhaler 2 puffs po q 4 hours prn for shortness of breath. Continue S/C Lovenox. Continue famotidine. (2) Narcotic dependence Current Visit: Yes Status: Acute Plan to address problem: Counseled to stop smoking. Patient is on Vistaril for nicotine with drawl. (3) Opioid withdrawal delirium, acute, hyperactive Current Visit: Yes Status: Acute Plan to address problem: Manafement as per primary care. (4) Depression Current Visit: Yes Status: Chronic Qualifiers: Depression Type: unspecified Qualified Code(s): F32.9 - Major depressive disorder, single episode, unspecified (5) HTN (hypertension) Current Visit: Yes Status: Chronic Qualifiers: Hypertension type: essential hypertension Qualified Code(s): I10 - Essential (primary) hypertension Plan to address problem: Management as per primary care. 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 Subjective Date of service: 03/02/18 Interval history: Patient sleeping at this time. No acute respiratory distress. On 2 litres O2.O2 saturation 96%. Objective Vital Signs - 12hr 03/02/18 03/02/18 03/02/18 09:00 09:10 09:38 Temperature Pulse Rate 72 Pulse Rate [ 72 77 Throughout] Respiratory Rate Respiratory 18 18 Rate [ Throughout] Blood Pressure 152/73 O2 Sat by Pulse Oximetry 03/02/18 03/02/18 03/02/18 10:00 12:27 17:25 Temperature 98.2 F 98.4 F Pulse Rate 76 69 Pulse Rate [ Throughout] Respiratory 20 20 Rate Respiratory Rate [ Throughout] Blood Pressure 161/80 145/68 O2 Sat by Pulse 96 95 96 Oximetry Constitutional: no acute distress, asleep Eyes: non-icteric ENT: oropharynx moist Neck: supple, no lymphadenopathy Ascultation: Bilateral: diminished breath sounds Cardiovascular: regular rate and rhythm Gastrointestinal: normoactive bowel sounds, soft, non-tender Integumentary: normal Extremities: no cyanosis, no edema Neurologic: non-focal exam, pupils equal and round, CN II-XII normal Psychiatric: other (Patient sleeping at this time.) CBC and BMP: 02/27/18 04:34 03/02/18 10:31 Abnormal lab findings: Abnormal Labs 02/26/18 02/26/18 02/26/18 15:26 15:26 15:26 RDW 16.3 H [place] % (Auto) Eos % (Auto) Carbon Dioxide BUN Creatinine Glucose Hemoglobin A1c Salicylates < 0.3 L Acetaminophen < 5.0 L 02/26/18 02/27/18 02/27/18 15:26 04:34 04:34 RDW 16.4 H [place] % (Auto) 9.4 H Eos % (Auto) 4.4 H Carbon Dioxide 31 H BUN 36 H Creatinine 1.4 H Glucose 118 H Hemoglobin A1c 6.3 H Salicylates Acetaminophen 02/28/18 03/02/18 05:28 10:31 RDW [place] % (Auto) Eos % (Auto) Carbon Dioxide BUN 32 H 22 H Creatinine 1.3 H Glucose 141 H 117 H Hemoglobin A1c Salicylates Acetaminophen Chest x-ray: report reviewed (No acute cardiopulmonary process.), image reviewed
[2018-03-02] MEDS: AMBIEN PO PRN (22:38)
[2018-03-03] MEDS: LIBRIUM PO PRN ×3 (09:34→21:23)
[2018-03-03] MEDS: VISTARIL PO PRN (09:35)
[2018-03-03] MEDS: ZOLOFT PO SCH (09:35)
[2018-03-03] MEDS: PULMICORT IH SCH ×2 (09:53→19:41)
[2018-03-03] MEDS: BROVANA NEBU IH SCH ×2 (09:53→19:41)
[2018-03-03] MEDS: LOPRESSOR PO SCH ×2 (10:00→21:22)
[2018-03-03] MEDS: LOVENOX SUB-Q SCH (10:00)
[2018-03-03] MEDS: PEPCID PO SCH ×2 (10:00→21:24)
[2018-03-03] MEDS: CARDIZEM CD PO SCH (10:00)
[2018-03-03] MEDS: TYLENOL PO PRN (10:17)
[2018-03-03] MEDS: SODIUM CHLORIDE FLUSH SYRINGE 10 ML IV SCH ×2 (10:37→21:28)
--- NOTE | 2018-03-03 14:05 | Progress Note ---
Assessment and Plan Patient alert, awake. Still complaining shortness of breath. On 2 litres O2.O2 saturation 96%. ABGs reported PH 7.41, PCO2 48, PO2 63, HCO3 31, O2 saturation 92% on 2 litres O2. - Patient Problems (1) COPD (chronic obstructive pulmonary disease) Current Visit: No Status: Chronic Plan to address problem: O2 2 litres via nasal canula. Brovanna/Budesonide aerosol treatments q 12 hours. Albuterol inhaler 2 puffs po q 4 hours prn for shortness of breath. Continue S/C Lovenox. Continue famotidine. Adding solumedrol. (2) Narcotic dependence Current Visit: Yes Status: Acute Plan to address problem: Counseled to stop smoking. Patient is on Vistaril for nicotine with drawl. (3) Opioid withdrawal delirium, acute, hyperactive Current Visit: Yes Status: Acute Plan to address problem: Manafement as per primary care. (4) Depression Current Visit: Yes Status: Chronic Qualifiers: Depression Type: unspecified Qualified Code(s): F32.9 - Major depressive disorder, single episode, unspecified Plan to address problem: Management as per primary care and psychiatry. (5) HTN (hypertension) Current Visit: Yes Status: Chronic Qualifiers: Hypertension type: essential hypertension Qualified Code(s): I10 - Essential (primary) hypertension Plan to address problem: Management as per primary care. 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 Subjective Date of service: 03/03/18 Interval history: Patient alert, awake. Still complaining shortness of breath. On 2 litres O2.O2 saturation 96%. ABGs reported PH 7.41, PCO2 48, PO2 63, HCO3 31, O2 saturation 92% on 2 litres O2. Objective Vital Signs - 12hr 03/03/18 03/03/18 03/03/18 06:27 09:52 09:54 Temperature 98.2 F Pulse Rate 71 Pulse Rate [ 85 Posterior Bilateral Throughout] Respiratory 20 Rate Respiratory 20 Rate [Posterior Bilateral Throughout] Blood Pressure 146/65 O2 Sat by Pulse 95 97 Oximetry 03/03/18 03/03/18 03/03/18 10:04 10:17 12:26 Temperature Pulse Rate Pulse Rate [ 88 Posterior Bilateral Throughout] Respiratory 14 Rate Respiratory 20 Rate [Posterior Bilateral Throughout] Blood Pressure O2 Sat by Pulse 96 Oximetry Constitutional: no acute distress, alert Eyes: non-icteric ENT: oropharynx moist Neck: supple, no lymphadenopathy Ascultation: Bilateral: diminished breath sounds Cardiovascular: regular rate and rhythm Gastrointestinal: normoactive bowel sounds, soft, non-tender Integumentary: normal Extremities: no cyanosis, no edema Neurologic: non-focal exam, pupils equal and round, CN II-XII normal Psychiatric: other (Patient sleeping at this time.) CBC and BMP: 02/27/18 04:34 03/02/18 10:31 ABG, PT/INR, D-dimer: ABG POC ABG pH 7.419 (7.35-7.45) 03/03/18 11:36 POC ABG pCO2 47.6 (35-45) H 03/03/18 11:36 POC ABG pO2 63 (80-105) L 03/03/18 11:36 POC ABG HCO3 30.8 03/03/18 11:36 POC ABG Total CO2 32 03/03/18 11:36 POC ABG O2 Sat 92 03/03/18 11:36 Abnormal lab findings: Abnormal Labs 02/26/18 02/26/18 02/26/18 15:26 15:26 15:26 RDW 16.3 H [place] % (Auto) Eos % (Auto) POC ABG pCO2 POC ABG pO2 Carbon Dioxide BUN Creatinine Glucose Hemoglobin A1c Salicylates < 0.3 L Acetaminophen < 5.0 L 02/26/18 02/27/18 02/27/18 15:26 04:34 04:34 RDW 16.4 H [place] % (Auto) 9.4 H Eos % (Auto) 4.4 H POC ABG pCO2 POC ABG pO2 Carbon Dioxide 31 H BUN 36 H Creatinine 1.4 H Glucose 118 H Hemoglobin A1c 6.3 H Salicylates Acetaminophen 02/28/18 03/02/18 03/03/18 05:28 10:31 11:36 RDW [place] % (Auto) Eos % (Auto) POC ABG pCO2 47.6 H POC ABG pO2 63 L Carbon Dioxide BUN 32 H 22 H Creatinine 1.3 H Glucose 141 H 117 H Hemoglobin A1c Salicylates Acetaminophen
[2018-03-03] MEDS: SOLU-Medrol IV SCH ×2 (15:52→21:22)
[2018-03-03] MEDS: FOLVITE PO SCH (18:33)
[2018-03-03] MEDS: AMBIEN PO PRN (21:23)
[2018-03-03] MEDS ORDERED: SOLU-Medrol IV SCH (22:00)
[2018-03-04] MEDS: LIBRIUM PO PRN ×3 (06:42→18:21)
[2018-03-04] MEDS: SOLU-Medrol IV SCH ×3 (06:42→22:01)
--- NOTE | 2018-03-04 07:19 | Progress Note ---
Assessment and Plan / Opiate dependence wanted to get detoxed Patient initiated on Suboxone protocol for 3 days - completed monitor at [facility] for withdrawl /anxiety Consulted psych for recommendation / HTN (hypertension) COnt home antihypertensives, adjust dose as needed / COPD with chronic respiratory failure cont nebs, supplemental o2 consult pulmonary for discharge clearance as pt appears very anxious, On home O2 2L / Rheumatoid arteritis with debility Patient having swan neck deformities in both hands involving 2nd 3rd and 4 th fingers Methotrexate started at low dose once weekly Now c/o knee pain, started on high dose steroid'will reconsult PT / Depression, not suicidal On Zoloft /Saúl, vasomotor nephropathy monitor BMP, avoid nephrotoxins, improved with gentle hydration / DVT prophylaxis On Lovenox Subjective Date of service: 03/03/18 Interval history: pt seen and examined no chest pain, c/o anxiety, breathing stable c/o inability to walk, right knee pain On 2L home O2, tolerating diet Objective - Exam Narrative Exam: General appearance: Present: no acute distress, well-nourished - EENT Eyes: PERRL, EOM intact ENT: hearing intact, clear oral mucosa Ears: bilateral: normal - Neck Neck: supple, normal ROM - Respiratory Respiratory effort: normal Respiratory: bilateral: CTA - Cardiovascular Rhythm: regular Heart Sounds: Present: S1 & S2. Absent: gallop, rub Extremities: pulses intact, No edema, normal color, Full ROM - Gastrointestinal General gastrointestinal: Present: soft, non-tender, non-distended, normal bowel sounds - Integumentary Integumentary: clear, warm, dry - Musculoskeletal Musculoskeletal: 1, strength equal bilaterally, right knee swelling - Neurologic Neurologic: moves all extremities - Psychiatric Psychiatric: intact judgment & insight, memory intact, other (anxious) - Constitutional Vitals: Vital Signs - 12hr 03/03/18 03/03/18 03/03/18 19:48 19:49 20:19 Temperature Pulse Rate Pulse Rate [ 72 75 Anterior Bilateral Throughout] Respiratory Rate Respiratory 20 20 Rate [Anterior Bilateral Throughout] Blood Pressure O2 Sat by Pulse 97 Oximetry 03/03/18 03/03/18 03/03/18 21:22 21:31 23:30 Temperature 98.1 F Pulse Rate 79 75 Pulse Rate [ Anterior Bilateral Throughout] Respiratory 20 20 Rate Respiratory Rate [Anterior Bilateral Throughout] Blood Pressure 154/69 157/77 O2 Sat by Pulse 94 92 Oximetry 03/04/18 05:00 Temperature 97.9 F Pulse Rate 73 Pulse Rate [ Anterior Bilateral Throughout] Respiratory 20 Rate Respiratory Rate [Anterior Bilateral Throughout] Blood Pressure 146/64 O2 Sat by Pulse 97 Oximetry - Labs CBC & Chem 7: 02/27/18 04:34 03/02/18 10:31 Labs: Abnormal lab results 03/03/18 Range/Units 11:36 POC ABG pCO2 47.6 H (35-45) POC ABG pO2 63 L (80-105)
--- NOTE | 2018-03-04 09:22 | Progress Note ---
Assessment and Plan Patient alert, awake. Patient says breathing some what better to day. Still complaining cough. On 2 litres O2.O2 saturation 97%. ABGs reported PH 7.41, PCO2 48, PO2 63, HCO3 31, O2 saturation 92% on 2 litres O2. - Patient Problems (1) COPD (chronic obstructive pulmonary disease) Current Visit: No Status: Chronic Plan to address problem: O2 2 litres via nasal canula. Brovanna/Budesonide aerosol treatments q 12 hours. Albuterol inhaler 2 puffs po q 4 hours prn for shortness of breath. Continue S/C Lovenox. Continue famotidine. Continue solumedral. (2) Narcotic dependence Current Visit: Yes Status: Acute Plan to address problem: Counseled to stop smoking. Patient is on Vistaril for nicotine with drawl. (3) Opioid withdrawal delirium, acute, hyperactive Current Visit: Yes Status: Acute Plan to address problem: Manafement as per primary care. (4) Depression Current Visit: Yes Status: Chronic Qualifiers: Depression Type: unspecified Qualified Code(s): F32.9 - Major depressive disorder, single episode, unspecified Plan to address problem: Management as per primary care and psychiatry. (5) HTN (hypertension) Current Visit: Yes Status: Chronic Qualifiers: Hypertension type: essential hypertension Qualified Code(s): I10 - Essential (primary) hypertension Plan to address problem: Management as per primary care. 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 Subjective Date of service: 03/04/18 Interval history: Patient alert, awake. Patient says breathing some what better to day. Still complaining cough. On 2 litres O2.O2 saturation 97%. ABGs reported PH 7.41, PCO2 48, PO2 63, HCO3 31, O2 saturation 92% on 2 litres O2. Objective Vital Signs - 12hr 03/03/18 03/03/18 03/03/18 21:22 21:31 23:30 Temperature 98.1 F Pulse Rate 79 75 Respiratory 20 20 Rate Blood Pressure 154/69 157/77 O2 Sat by Pulse 94 92 Oximetry 03/04/18 05:00 Temperature 97.9 F Pulse Rate 73 Respiratory 20 Rate Blood Pressure 146/64 O2 Sat by Pulse 97 Oximetry Constitutional: no acute distress, alert Eyes: non-icteric ENT: oropharynx moist Neck: supple, no lymphadenopathy Ascultation: Bilateral: diminished breath sounds Cardiovascular: regular rate and rhythm Gastrointestinal: normoactive bowel sounds, soft, non-tender Integumentary: normal Extremities: no cyanosis, no edema Neurologic: non-focal exam, pupils equal and round, CN II-XII normal Psychiatric: other (Patient sleeping at this time.) CBC and BMP: 02/27/18 04:34 03/02/18 10:31 ABG, PT/INR, D-dimer: ABG POC ABG pH 7.419 (7.35-7.45) 03/03/18 11:36 POC ABG pCO2 47.6 (35-45) H 03/03/18 11:36 POC ABG pO2 63 (80-105) L 03/03/18 11:36 POC ABG HCO3 30.8 03/03/18 11:36 POC ABG Total CO2 32 03/03/18 11:36 POC ABG O2 Sat 92 03/03/18 11:36 Abnormal lab findings: Abnormal Labs 02/26/18 02/26/18 02/26/18 15:26 15:26 15:26 RDW 16.3 H [place] % (Auto) Eos % (Auto) POC ABG pCO2 POC ABG pO2 Carbon Dioxide BUN Creatinine Glucose Hemoglobin A1c Salicylates < 0.3 L Acetaminophen < 5.0 L 02/26/18 02/27/18 02/27/18 15:26 04:34 04:34 RDW 16.4 H [place] % (Auto) 9.4 H Eos % (Auto) 4.4 H POC ABG pCO2 POC ABG pO2 Carbon Dioxide 31 H BUN 36 H Creatinine 1.4 H Glucose 118 H Hemoglobin A1c 6.3 H Salicylates Acetaminophen 02/28/18 03/02/18 03/03/18 05:28 10:31 11:36 RDW [place] % (Auto) Eos % (Auto) POC ABG pCO2 47.6 H POC ABG pO2 63 L Carbon Dioxide BUN 32 H 22 H Creatinine 1.3 H Glucose 141 H 117 H Hemoglobin A1c Salicylates Acetaminophen
[2018-03-04] MEDS: ZOLOFT PO SCH ×2 (09:37→18:34)
[2018-03-04] MEDS: LOVENOX SUB-Q SCH (09:37)
[2018-03-04] MEDS: ROBAXIN PO PRN (09:37)
[2018-03-04] MEDS: FOLVITE PO SCH (09:38)
[2018-03-04] MEDS: CARDIZEM CD PO SCH (09:38)
[2018-03-04] MEDS: PEPCID PO SCH ×2 (09:38→22:01)
[2018-03-04] MEDS: SODIUM CHLORIDE FLUSH SYRINGE 10 ML IV SCH ×2 (09:40→22:02)
[2018-03-04] MEDS: LOPRESSOR PO SCH ×2 (10:06→22:03)
[2018-03-04] MEDS: BROVANA NEBU IH SCH ×2 (10:19→20:16)
[2018-03-04] MEDS: PULMICORT IH SCH ×2 (10:20→20:16)
--- NOTE | 2018-03-04 14:12 | Consultation ---
History of Present Illness - Reason for Consult Consult date: 03/04/18 Reason for consult: Initial Psychiatric Evaluation - Chief Complaint Chief complaint: " Opiate dependence" - History of Present Psychiatric Illness Patient is a 67-year-old female who presented to the emergency room for opiate withdrawal. Psychiatry was consulted for anxiety. Patient is known to provider. Patient reports that she was discharged from [facility] between February 06- for opioid use disorder, severe. While at [facility], patient verbalizes her Zoloft was increased to 100mg. Patient has a PPHx MDD and BRYAN. Currently, she endorses anhedonia, decrease sleep, decrease energy, anxious mood, and appropriate appetite. Patient reports that her anxiety is related to her disabled son and great niece. Per patient she worries that if something were to happen to her will they be able to care for themselves. She denies SI /HI's, A/VH's, and delusions. Current Psychiatric Medications: Zoloft 50mg po QAM, Vistaril 50mg po [id number] Past Psychiatric History: MDD (1988) BRYAN(1988); Approximately 2 previous inpatient psychiatric hospitalizations ( [facility]); Dr. Silverio- outpatient psychiatrist; no previous suicide attempts; no rehabs. Past Psychiatric Medication Trials: Paxil - " 40 years or more". It's effefctive. Drug/Alcohol Abuse: Oxycodone 30mg TID, daily, by mouth, last use- 01/30/18, first use- 2005 Social History: 9th grade; Disability- $750.00; lives with son; 1 son; single. Family History of Psychiatric Illness/ Substance Abuse: Brother- " drink" Medications and Allergies Allergies Allergy/AdvReac Type Severity Reaction Status Date / Time No Known Allergies Allergy Unverified 01/26/18 13:56 Home Medications Medication Instructions Recorded Confirmed Last Taken Type ALBUTEROL NEB's [Proventil 0.083% 2.5 mg IH Q4HRT PRN #1 nebu 01/29/18 Unknown Rx NEBS] Metoprolol [Lopressor TAB] 25 mg PO BID #60 tablet 01/29/18 Unknown Rx Sertraline [Zoloft] 50 mg PO QDAY #30 tablet 01/29/18 Unknown Rx dilTIAZem CD [Cardizem CD] 240 mg PO QDAY #30 capsule 01/29/18 Unknown Rx oxyCODONE /ACETAMINOPHEN [Percocet 1 tab PO Q6H PRN #10 tablet 01/29/18 Unknown Rx 5/325 mg] Active Meds: Active Medications Acetaminophen (Tylenol) 650 mg PO Q4H PRN PRN Reason: Pain MILD(1-3)/Fever >100.5/AMOR Last Admin: 03/03/18 10:17 Dose: 650 mg Documented by: Albuterol (Proventil) 2.5 mg IH Q4HRT PRN PRN Reason: Shortness Of Breath Arformoterol Tartrate (Brovana Nebu) 15 mcg IH Q12HRT [facility] Last Admin: 03/04/18 10:19 Dose: 15 mcg Documented by: Budesonide (Pulmicort) 0.5 mg IH Q12HRT [facility] Last Admin: 03/04/18 10:20 Dose: 0.5 mg Documented by: Chlordiazepoxide HCl (Librium) 25 mg PO Q6H PRN PRN Reason: MODERATE/SEVERE ANXIETY Last Admin: 03/04/18 13:19 Dose: 25 mg Documented by: Clonidine HCl (Catapres-Tts Patch) 0.2 mg TD Sa [facility] Last Admin: 02/28/18 14:05 Dose: 0.2 mg Documented by: Dicyclomine HCl (Bentyl) 20 mg PO Q6H PRN PRN Reason: Abdominal Discomfort Diltiazem HCl (Cardizem Cd) 240 mg PO QDAY [facility] Last Admin: 03/04/18 09:38 Dose: 240 mg Documented by: Enoxaparin Sodium (Lovenox) 40 mg SUB-Q QDAY@1000 [facility] Last Admin: 03/04/18 09:37 Dose: 40 mg Documented by: Famotidine (Pepcid) 20 mg PO BID [facility] Last Admin: 03/04/18 09:38 Dose: 20 mg Documented by: Folic Acid (Folvite) 1 mg PO QDAY [facility] Last Admin: 03/04/18 09:38 Dose: 1 mg Documented by: Guaifenesin (Guaifenesin Dm Syrup) 10 ml PO Q4H PRN PRN Reason: Cough Last Admin: 03/04/18 13:19 Dose: 10 ml Documented by: Hydroxyzine Pamoate (Vistaril) 50 mg PO Q6H PRN PRN Reason: Anxiety Mild Last Admin: 03/03/18 09:35 Dose: 50 mg Documented by: Methocarbamol (Robaxin) 750 mg PO Q6H PRN PRN Reason: Muscle aches Last Admin: 03/04/18 09:37 Dose: 750 mg Documented by: Methotrexate (Methotrexate (Dose Weekly Only)) 7.5 mg PO Fr@1000 [facility] Last Admin: 02/27/18 13:00 Dose: 7.5 mg Documented by: Methylprednisolone Sodium Succinate (Solu-Medrol) 40 mg IV Q8HR [facility] Last Admin: 03/04/18 13:19 Dose: 40 mg Documented by: Metoprolol Tartrate (Lopressor) 25 mg PO BID [facility] Last Admin: 03/04/18 10:06 Dose: 25 mg Documented by: Ondansetron HCl (Zofran) 4 mg IV Q8H PRN PRN Reason: Nausea And Vomiting Last Admin: 02/28/18 22:17 Dose: 4 mg Documented by: Sertraline HCl (Zoloft) 50 mg PO QDAY [facility] Last Admin: 03/04/18 09:37 Dose: 50 mg Documented by: Sodium Chloride (Sodium Chloride Flush Syringe 10 Ml) 10 ml IV BID [facility] Last Admin: 03/04/18 09:40 Dose: 10 ml Documented by: Sodium Chloride (Sodium Chloride Flush Syringe 10 Ml) 10 ml IV PRN PRN PRN Reason: LINE FLUSH Last Admin: 02/28/18 22:18 Dose: 10 ml Documented by: Zolpidem Tartrate (Ambien) 10 mg PO QHS PRN PRN Reason: Insomnia Last Admin: 03/03/18 21:23 Dose: 10 mg Documented by: Mental Status Exam - Vital signs Last Vital Signs Temp 98.5 F 03/04/18 11:53 Pulse 74 03/04/18 11:53 Resp 22 03/04/18 11:53 BP 157/85 03/04/18 11:53 Pulse Ox 95 03/04/18 11:53 - Exam Narrative exam: Mental Status Exam Appearance: calm, cooperative Behavior: regular eye contact Speech: regular rate with a low tone Mood: " Okay " " a little anxious"; tearful, depressed Affect: congruent with mood Thought Process: circumstantial Thought Content: denies SI/HI's, AVH's , delusions Motor Activity: sitting up in bed Cognition: A/O x3 Insight: fair Judgment: fair Results Result Diagrams: 02/27/18 04:34 03/02/18 10:31 All other labs normal. Assessment and Plan Assessment and plan: Impression: PPHx MDD, BRYAN, Opiod Use Disorder, severe. Today the patient is cooperative but anxious during the assessment. She denies SI/HI's, A/VH's, delusions. Recommendation/Plan: 1. Will reassess in 24 hours. 2. Continue Vistaril 50mg po Q 6hours PRN anxiety. 3. Increase Zoloft 100mg po QAM depression/anxiety . Discussed possible suicidality/medication induced kandi with the patient reference Zoloft. 4. Add Buspar 7.5mg po TID anxiety. 5. Will monitor mood, anxiety, sleep, appetite, compliance, and side effects. Disposition: Will gain collateral to determine proper disposition. Will staff with Dr Helga Lyles.
--- NOTE | 2018-03-04 14:37 | Progress Note ---
Assessment and Plan / Opiate dependence wanted to get detoxed Patient initiated on Suboxone protocol for 3 days - completed monitor at [facility] for withdrawl /BRYAN with depression Not suicidal Consulted psych and recommended followin. Continue Vistaril 50mg po Q 6hours PRN anxiety. 3. Increase Zoloft 100mg po QAM depression/anxiety 4. 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 involving 2nd 3rd and 4 th fingers Methotrexate started at low dose once weekly Mild to moderate osteoarthritis on right knee xry, started on high dose steroid, reconsulted PT - will follow recommendation /Saúl, vasomotor nephropathy monitor BMP, avoid nephrotoxins, improved with gentle hydration / DVT prophylaxis On Lovenox Subjective Date of service: 03/04/18 Interval history: pt seen and examined no chest pain, c/o anxiety, breathing stable c/o inability to walk, right knee pain anxious to go home On 2L home O2, tolerating diet Objective - Exam Narrative Exam: General appearance: Present: no acute distress, well-nourished - EENT Eyes: PERRL, EOM intact ENT: hearing intact, clear oral mucosa Ears: bilateral: normal - Neck Neck: supple, normal ROM - Respiratory Respiratory effort: normal Respiratory: bilateral: CTA - Cardiovascular Rhythm: regular Heart Sounds: Present: S1 & S2. Absent: gallop, rub Extremities: pulses intact, No edema, normal color, Full ROM - Gastrointestinal General gastrointestinal: Present: soft, non-tender, non-distended, normal bowel sounds - Integumentary Integumentary: clear, warm, dry - Musculoskeletal Musculoskeletal: 1, strength equal bilaterally, right knee swelling - Neurologic Neurologic: moves all extremities - Psychiatric Psychiatric: intact judgment & insight, memory intact, other (anxious) - Constitutional Vitals: Vital Signs - 12hr 03/04/18 03/04/18 03/04/18 05:00 09:38 11:53 Temperature 97.9 F 98.5 F Pulse Rate 73 73 74 Respiratory 20 22 Rate Blood Pressure 146/64 146/64 157/85 O2 Sat by Pulse 97 95 Oximetry - Labs CBC & Chem 7: 02/27/18 04:34 03/02/18 10:31
[2018-03-04] MEDS: TYLENOL PO PRN (16:35)
[2018-03-04] MEDS ORDERED: BUSPAR PO SCH (20:00)
[2018-03-04] MEDS: BUSPAR PO SCH (20:37)
--- NOTE | 2018-03-04 21:36 | XRay Report ---
FINAL REPORT PROCEDURE: Right knee. TECHNIQUE: AP and lateral views. HISTORY: Swelling and pain. COMPARISON: No prior studies are available for comparison. FINDINGS: The bones appear intact without fracture or dislocation. There is mild narrowing of the knee joint. T here is a subchondral cyst in the lateral tibial plateau. There are small osteophytes arising from th e distal femur and proximal tibia. The soft tissues are unremarkable. There may be a small knee effus ion. IMPRESSION: Mild to moderate osteoarthritis.
[2018-03-04] MEDS: AMBIEN PO PRN (22:07)
[2018-03-05] MEDS: VISTARIL PO PRN (05:48)
[2018-03-05] MEDS: SOLU-Medrol IV SCH ×2 (05:50→22:48)
[2018-03-05] MEDS: APRESOLINE IV SCH ×3 (06:47→18:00)
[2018-03-05] MEDS: BROVANA NEBU IH SCH ×2 (07:54→20:08)
[2018-03-05] MEDS: PULMICORT IH SCH ×2 (07:54→20:08)
[2018-03-05] MEDS: BUSPAR PO SCH ×3 (09:43→22:51)
[2018-03-05] MEDS: CARDIZEM CD PO SCH (09:44)
[2018-03-05] MEDS: FOLVITE PO SCH (09:44)
[2018-03-05] MEDS: LOPRESSOR PO SCH ×2 (09:45→22:48)
[2018-03-05] MEDS: LOVENOX SUB-Q SCH (09:45)
[2018-03-05] MEDS: PEPCID PO SCH ×2 (09:45→22:51)
[2018-03-05] MEDS: SODIUM CHLORIDE FLUSH SYRINGE 10 ML IV SCH ×2 (09:45→22:48)
[2018-03-05] MEDS: ZOLOFT PO SCH (10:03)
--- NOTE | 2018-03-05 12:27 | Progress Note ---
Subjective - Reason for Consult Consult date: 03/05/18 Reason for consult: Psychiatry Follow-up - Chief Complaint Chief complaint: "Hello" 67-year-old female who presented to the emergency room for opiate withdrawal. Today the patient is calm and cooperative during the assessment. She stated that she is feeling much better. She stated that she have not followed up with her psychiatrist in 2 months. She stated that she is seen by Dr Pham and plan to see him when discharged. She rate her depression/anxiety 2/10, with 10 being the worse. She denies any opioid withdrawals symptoms when asked. She denies SI/HI's and AVH's. She denies any side effects of her medications. Mental Status Exam - Vital signs Last Vital Signs Temp 98.4 F 03/05/18 05:52 Pulse 94 H 03/05/18 09:45 Resp 16 03/05/18 07:59 BP 187/97 03/05/18 06:47 Pulse Ox 97 03/05/18 07:58 - Exam Narrative exam: MSE: Appearance: calm, cooperative Behavior: regular eye contact Speech: regular rate and tone Mood: "okay" Affect: congruent to mood Thought Process: logical Thought Content: denies SI/HI's and AVH's Motor Activity: sitting up in bed Cognition: A/O x3 Insight: appropriate Judgment: appropriate Assessment and Plan Impression: MDD, BRYAN, and Opiod Use Disorder. Today the patient is calm and cooperative during the assessment. Recommendation/Plan: Continue Vistaril 50 mg PO Q6hrs PRN for acute anxiety, Zoloft 100 mg PO daily for depression/anxiety, and Buspar 7.5 mg PO TID anxiety. Discussed possible suicidality/medication induced kandi with the patient reference Zoloft. Psy sign off. Dispo: The patient can follow up with her psychiatrist Dr Pham for outpatient psy services. Will staff with Dr Tang.
[2018-03-05] MEDS: PROVENTIL IH PRN (13:46)
--- NOTE | 2018-03-05 14:01 | Discharge Summary ---
Providers - Providers Date of Admission: 02/26/18 17:08 Date of discharge: 03/09/18 Attending physician: KAVITA HORAN 02/27/18 13:12 Physical Therapy Evaluation and Treat [CONS] Routine Comment: Reason For Exam: generalized weakness 03/01/18 12:58 Consult to Physician [CONS] Routine Comment: Consulting Provider: MARK HAAS Physician Instructions: Reason For Exam: copd exacerbation 03/02/18 12:37 Consult to Mental Health [CONS] Routine Reason For Exam: anxiety Place consult to:: mental health Notified:: HARDEEP Phone number called:: [phone] Was contact made?: Yes If yes, spoke with:: HARDEEP Time called:: 10:24 03/04/18 07:20 Physical Therapy Evaluation and Treat [CONS] Routine Comment: Reason For Exam: increase O2 requirement Primary care physician: VELIA STOCK Hospitalization Condition: Stable Pertinent studies: CXR knee XRY Hospital course: Patient is a 67-year-old female who presented to the emergency room for opiate withdrawal. Psychiatry was consulted for anxiety. She was placed on opiates withdrawal protocol, consulted psych for BRYAN and depression, consulted pulmonary for COPD, arranged home O2. Patient was medically stable for discharge but she appalled her discharge and lost it. She was then discharged home with HH and home O2. Discharge diagnosis and management: / Opiate dependence wanted to get detoxed Patient initiated on Suboxone protocol for 3 days - completed monitored at [facility] for withdrawl, remained stable /BRYAN with depression Not suicidal, will cont outpt followup Consulted psych and recommended followin. Continue Vistaril 50mg po Q 6hours PRN anxiety. 3. Increase Zoloft 100mg po QAM for depression/anxiety 4. Added Buspar 7.5mg po TID anxiety / HTN (hypertension) COntinued home antihypertensives, adjusted dose as needed / COPD with chronic respiratory failure managed with cont nebs, supplemental o2, empiric steroid consulted pulmonary for discharge clearance as patient appeared very anxious, On home O2 2L / Rheumatoid arteritis with debility Patient was showing swan neck deformities in both hands involving 2nd 3rd and 4 th fingers Methotrexate started at low dose once weekly Mild to moderate osteoarthritis on right knee xry, started on high dose steroid but will cont low dose at home, Reconsulted PT - need HH /Saúl, vasomotor nephropathy monitored BMP, avoided nephrotoxins, improved with gentle hydration / DVT prophylaxis On Lovenox Physical exam General appearance: Present: no acute distress, well-nourished - EENT Eyes: PERRL, EOM intact ENT: hearing intact, clear oral mucosa Ears: bilateral: normal - Neck Neck: supple, normal ROM - Respiratory Respiratory effort: normal Respiratory: bilateral: CTA - Cardiovascular Rhythm: regular Heart Sounds: Present: S1 & S2. Absent: gallop, rub Extremities: pulses intact, No edema, normal color, Full ROM - Gastrointestinal General gastrointestinal: Present: soft, non-tender, non-distended, normal bowel sounds - Integumentary Integumentary: clear, warm, dry - Musculoskeletal Musculoskeletal: 1, strength equal bilaterally, right knee swelling - Neurologic Neurologic: moves all extremities - Psychiatric Psychiatric: intact judgment & insight, memory intact, other (anxious) Disposition: [id number] HOME UNDER HOME [facility] Time spent for discharge: 34 minutes Core Measure Documentation - Palliative Care Palliative Care/ Comfort Measures: Not Applicable - Core Measures Any of the following diagnoses?: none Exam - Constitutional Vitals: Temp Pulse Resp BP Pulse Ox 98.0 F 92 H 18 162/78 98 03/05/18 12:29 03/05/18 13:49 03/05/18 13:49 03/05/18 12:29 03/05/18 12:29 Plan Activity: advance as tolerated, fall precautions Weight Bearing Status: Non-Weight Bearing Diet: low fat Special Instructions: home oxygen via (N/C) Follow up with: VELIA STOCK MD [Primary Care Provider] - 3-5 Days MARK HAAS MD [Staff Physician] - 7 Days Prescriptions: ALBUTEROL NEB's [Proventil 0.083% NEBS] 2.5 mg IH Q4HRT PRN #30 nebu PRN Reason: Shortness Of Breath busPIRone [Buspar] 7.5 mg PO TID #90 tablet metHOTREXate(DOSE WEEKLY ONLY) [metHOTREXate (DOSE WEEKLY ONLY)] 7.5 mg PO Fr@1000 #4 tablet predniSONE [Prednisone] 50 mg PO DAILY #7 tablet Sertraline [Zoloft] 100 mg PO QDAY #30 tablet
--- NOTE | 2018-03-05 15:11 | Event Note ---
Date: 03/05/18 CM called me to notify that patient appealed her discharge. Per my assessment I believed she received maximum benefit for her current hospital stay. Will wait for decision for her discharge appeal.
[2018-03-05] MEDS: TYLENOL PO PRN (17:10)
[2018-03-05] MEDS: AMBIEN PO PRN (22:48)
[2018-03-06] MEDS: APRESOLINE IV SCH ×4 (01:48→18:00)
[2018-03-06] MEDS: SODIUM CHLORIDE FLUSH SYRINGE 10 ML IV PRN (01:50)
[2018-03-06] MEDS: VISTARIL PO PRN (06:15)
[2018-03-06] MEDS: BROVANA NEBU IH SCH ×2 (07:49→20:42)
[2018-03-06] MEDS: PULMICORT IH SCH ×2 (07:49→20:42)
[2018-03-06] MEDS: BUSPAR PO SCH ×2 (08:08→17:12)
[2018-03-06] MEDS: TYLENOL PO PRN (08:12)
[2018-03-06] MEDS: PEPCID PO SCH ×2 (10:46→22:35)
[2018-03-06] MEDS: LOPRESSOR PO SCH ×2 (10:46→22:36)
[2018-03-06] MEDS: ZOLOFT PO SCH (10:46)
[2018-03-06] MEDS: FOLVITE PO SCH (10:46)
[2018-03-06] MEDS: SOLU-Medrol IV SCH ×2 (10:47→22:35)
[2018-03-06] MEDS: CARDIZEM CD PO SCH (10:47)
[2018-03-06] MEDS: SODIUM CHLORIDE FLUSH SYRINGE 10 ML IV SCH ×2 (10:51→22:35)
[2018-03-06] MEDS: LOVENOX SUB-Q SCH (11:01)
--- NOTE | 2018-03-06 12:17 | Progress Note ---
Assessment and Plan Opiate withdrawal. Chronic back pain. Acute chronic obstructive pulmonary disease with mild exacerbation. Gastroesophageal reflux disease. Cardiomyopathy. Hypertension. Arthritis. Chronic back pain. Acute kidney injury - continue supplemental oxygen to keep sats > 90% - continue bronchodilators with pulmonary hygiene per RT - PT/OT - continue to watch for S&S of withdrawal from opiates - complete psych evaluation - continue chronic home meds - continue inhaled corticosteroids - continue G.I. & VTE prophylaxis - continue other care per attending / other consultants .... care plan discussed at length with patient and her questions were answered to allay some health related fears Subjective Date of service: 03/06/18 Interval history: Patient is seen today for: Opiate withdrawal; Chronic back pain; Acute chronic obstructive pulmonary disease with mild exacerbation; Gastroesophageal reflux disease; Cardiomyopathy. Seen and examined at bedside; 24hour events reviewed; nursing and respiratory care staff consulted; no adverse overnight events reported to me; resting in bed; still looks anxious; denied acute chest pains or palpitations; worried about her chronic FAUST; denies N/V/F/C Objective Vital Signs - 12hr 03/06/18 03/06/18 03/06/18 01:48 05:45 06:15 Temperature 98.9 F Pulse Rate 72 99 H 100 H Pulse Rate [ Anterior Bilateral Throughout] Respiratory 32 H Rate Respiratory Rate [Anterior Bilateral Throughout] Blood Pressure 147/74 164/78 164/78 O2 Sat by Pulse 95 Oximetry 03/06/18 03/06/18 03/06/18 07:50 08:14 10:46 Temperature Pulse Rate Pulse Rate [ 99 H 114 H Anterior Bilateral Throughout] Respiratory Rate Respiratory 18 20 Rate [Anterior Bilateral Throughout] Blood Pressure 163/87 O2 Sat by Pulse 98 Oximetry 03/06/18 10:47 Temperature Pulse Rate Pulse Rate [ Anterior Bilateral Throughout] Respiratory Rate Respiratory Rate [Anterior Bilateral Throughout] Blood Pressure 163/87 O2 Sat by Pulse Oximetry Constitutional: no acute distress, alert, other (elderly looking AAF, normocephalic and atarumatic with mildly increased respiratory effort at rest) Eyes: non-icteric ENT: oropharynx moist Neck: supple, no lymphadenopathy, no JVD Effort: mildly labored Ascultation: Bilateral: diminished breath sounds, rhonchi (bases) Percussion: Bilateral: not dull Cardiovascular: regular rate and rhythm Gastrointestinal: normoactive bowel sounds, soft, non-tender, non-distended Integumentary: normal Extremities: no cyanosis, no edema, pulses normal, no ischemia or petechiae Neurologic: normal mental status, non-focal exam, pupils equal and round, CN II- XII normal Psychiatric: anxious CBC and BMP: 02/27/18 04:34 03/02/18 10:31 ABG, PT/INR, D-dimer: ABG POC ABG pH 7.419 (7.35-7.45) 03/03/18 11:36 POC ABG pCO2 47.6 (35-45) H 03/03/18 11:36 POC ABG pO2 63 (80-105) L 03/03/18 11:36 POC ABG HCO3 30.8 03/03/18 11:36 POC ABG Total CO2 32 03/03/18 11:36 POC ABG O2 Sat 92 03/03/18 11:36 Abnormal lab findings: Abnormal Labs 02/26/18 02/26/18 02/26/18 15:26 15:26 15:26 RDW 16.3 H [place] % (Auto) Eos % (Auto) POC ABG pCO2 POC ABG pO2 Carbon Dioxide BUN Creatinine Glucose Hemoglobin A1c Salicylates < 0.3 L Acetaminophen < 5.0 L 02/26/18 02/27/18 02/27/18 15:26 04:34 04:34 RDW 16.4 H [place] % (Auto) 9.4 H Eos % (Auto) 4.4 H POC ABG pCO2 POC ABG pO2 Carbon Dioxide 31 H BUN 36 H Creatinine 1.4 H Glucose 118 H Hemoglobin A1c 6.3 H Salicylates Acetaminophen 02/28/18 03/02/18 03/03/18 05:28 10:31 11:36 RDW [place] % (Auto) Eos % (Auto) POC ABG pCO2 47.6 H POC ABG pO2 63 L Carbon Dioxide BUN 32 H 22 H Creatinine 1.3 H Glucose 141 H 117 H Hemoglobin A1c Salicylates Acetaminophen Chest x-ray: image reviewed Allied health notes reviewed: nursing
--- NOTE | 2018-03-06 15:48 | Progress Note ---
Assessment and Plan / Opiate dependence wanted to get detoxed Patient initiated on Suboxone protocol for 3 days - completed monitor at [facility] for withdrawl /BRYAN with depression Not suicidal Consulted psych and recommended followin. Continue Vistaril 50mg po Q 6hours PRN anxiety. 3. Increase Zoloft 100mg po QAM depression/anxiety 4. 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 involving 2nd 3rd and 4 th fingers Methotrexate started at low dose once weekly Mild to moderate osteoarthritis on right knee xry, started on high dose steroid, reconsulted PT - recommended HH /Saúl, vasomotor nephropathy monitor BMP, avoid nephrotoxins, improved with gentle hydration / DVT prophylaxis On Lovenox Subjective Date of service: 03/05/18 Interval history: pt seen and examined no chest pain, c/o anxiety, breathing stable c/o inability to walk, right knee pain anxious to go home, appealed her discharge On 2L home O2, tolerating diet Objective - Exam Narrative Exam: General appearance: Present: no acute distress, well-nourished - EENT Eyes: PERRL, EOM intact ENT: hearing intact, clear oral mucosa Ears: bilateral: normal - Neck Neck: supple, normal ROM - Respiratory Respiratory effort: normal Respiratory: bilateral: CTA - Cardiovascular Rhythm: regular Heart Sounds: Present: S1 & S2. Absent: gallop, rub Extremities: pulses intact, No edema, normal color, Full ROM - Gastrointestinal General gastrointestinal: Present: soft, non-tender, non-distended, normal bowel sounds - Integumentary Integumentary: clear, warm, dry - Musculoskeletal Musculoskeletal: 1, strength equal bilaterally, right knee swelling - Neurologic Neurologic: moves all extremities - Psychiatric Psychiatric: intact judgment & insight, memory intact, other (anxious) - Constitutional Vitals: Vital Signs - 12hr 03/06/18 03/06/18 03/06/18 05:45 06:15 07:50 Temperature 98.9 F Pulse Rate 99 H 100 H Pulse Rate [ 99 H Anterior Bilateral Throughout] Respiratory 32 H Rate Respiratory 18 Rate [Anterior Bilateral Throughout] Blood Pressure 164/78 164/78 O2 Sat by Pulse 95 98 Oximetry 03/06/18 03/06/18 03/06/18 08:14 10:46 10:47 Temperature Pulse Rate Pulse Rate [ 114 H Anterior Bilateral Throughout] Respiratory Rate Respiratory 20 Rate [Anterior Bilateral Throughout] Blood Pressure 163/87 163/87 O2 Sat by Pulse Oximetry 03/06/18 12:19 Temperature 97.6 F Pulse Rate 105 H Pulse Rate [ Anterior Bilateral Throughout] Respiratory 22 Rate Respiratory Rate [Anterior Bilateral Throughout] Blood Pressure 179/80 O2 Sat by Pulse 96 Oximetry - Labs CBC & Chem 7: 02/27/18 04:34 03/02/18 10:31
[2018-03-06] MEDS: METHOTREXATE PO SCH (17:11)
[2018-03-06] MEDS: AMBIEN PO PRN (22:43)
[2018-03-07] MEDS: BUSPAR PO SCH ×3 (01:25→13:54)
[2018-03-07] MEDS: APRESOLINE IV SCH ×4 (01:25→18:56)
[2018-03-07] MEDS: PULMICORT IH SCH ×2 (10:01→19:33)
[2018-03-07] MEDS: BROVANA NEBU IH SCH ×2 (10:02→19:33)
[2018-03-07] MEDS: SOLU-Medrol IV SCH ×2 (10:09→21:40)
[2018-03-07] MEDS: PEPCID PO SCH ×2 (10:10→21:35)
[2018-03-07] MEDS: CARDIZEM CD PO SCH (10:10)
[2018-03-07] MEDS: ZOLOFT PO SCH (10:10)
[2018-03-07] MEDS: LOPRESSOR PO SCH ×2 (10:11→21:35)
[2018-03-07] MEDS: LOVENOX SUB-Q SCH (10:11)
[2018-03-07] MEDS: FOLVITE PO SCH (10:11)
[2018-03-07] MEDS: SODIUM CHLORIDE FLUSH SYRINGE 10 ML IV SCH ×2 (10:11→21:39)
[2018-03-07] MEDS: TYLENOL PO PRN ×2 (11:30→21:37)
--- NOTE | 2018-03-07 13:35 | Progress Note ---
Assessment and Plan / Opiate dependence wanted to get detoxed Patient initiated on Suboxone protocol for 3 days - completed monitor at [facility] for withdrawl /BRYAN with depression Not suicidal Consulted psych and recommended followin. Continue Vistaril 50mg po Q 6hours PRN anxiety. 3. Increase Zoloft 100mg po QAM depression/anxiety 4. 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 involving 2nd 3rd and 4 th fingers Methotrexate started at low dose once weekly Mild to moderate osteoarthritis on right knee xry, started on high dose steroid, reconsulted PT - recommended HH /Saúl, vasomotor nephropathy monitor BMP, avoid nephrotoxins, improved with gentle hydration / DVT prophylaxis On Lovenox Disposition: d/c pending on decision of discharge appeal Subjective Date of service: 03/06/18 Interval history: pt seen and examined no chest pain, c/o anxiety, breathing stable c/o inability to walk, right knee pain anxious to go home, appealed her discharge On 2L home O2, tolerating diet Objective - Exam Narrative Exam: General appearance: Present: no acute distress, well-nourished - EENT Eyes: PERRL, EOM intact ENT: hearing intact, clear oral mucosa Ears: bilateral: normal - Neck Neck: supple, normal ROM - Respiratory Respiratory effort: normal Respiratory: bilateral: CTA - Cardiovascular Rhythm: regular Heart Sounds: Present: S1 & S2. Absent: gallop, rub Extremities: pulses intact, No edema, normal color, Full ROM - Gastrointestinal General gastrointestinal: Present: soft, non-tender, non-distended, normal bowel sounds - Integumentary Integumentary: clear, warm, dry - Musculoskeletal Musculoskeletal: 1, strength equal bilaterally, right knee swelling - Neurologic Neurologic: moves all extremities - Psychiatric Psychiatric: intact judgment & insight, memory intact, other (anxious) - Constitutional Vitals: Vital Signs - 12hr 03/07/18 03/07/18 03/07/18 05:22 06:35 06:36 Temperature 98.0 F 98.6 F Pulse Rate 78 90 90 Respiratory 20 18 Rate Blood Pressure 130/58 164/85 164/85 O2 Sat by Pulse 97 94 Oximetry 03/07/18 03/07/18 10:10 10:11 Temperature Pulse Rate 90 Respiratory Rate Blood Pressure 164/85 164/85 O2 Sat by Pulse Oximetry - Labs CBC & Chem 7: 02/27/18 04:34 03/02/18 10:31
[2018-03-07] MEDS: CATAPRES-TTS PATCH TD SCH (13:56)
[2018-03-07] MEDS: VISTARIL PO PRN ×2 (13:56→20:31)
[2018-03-07] MEDS: PROVENTIL IH PRN (15:18)
--- NOTE | 2018-03-07 15:24 | Progress Note ---
Assessment and Plan / Opiate dependence wanted to get detoxed Patient initiated on Suboxone protocol for 3 days - completed monitor at [facility] for withdrawl /BRYAN with depression Not suicidal Consulted psych and recommended followin. Continue Vistaril 50mg po Q 6hours PRN anxiety. 3. Increase Zoloft 100mg po QAM depression/anxiety 4. Add Buspar 7.5mg po TID anxiety patient refusing to take buspar stating that she is having headache with it, will stop Buspar for now / HTN (hypertension) COnt home antihypertensives, adjust dose as needed / COPD with chronic respiratory failure cont nebs, supplemental o2 consult pulmonary for discharge clearance as pt appears very anxious, On home O2 2L / Rheumatoid arteritis with debility Patient having swan neck deformities in both hands involving 2nd 3rd and 4 th fingers Methotrexate started at low dose once weekly Mild to moderate osteoarthritis on right knee xry, started on high dose steroid and now tapering off, reconsulted PT - recommended HH /Saúl, vasomotor nephropathy monitor BMP, avoid nephrotoxins, improved with gentle hydration / DVT prophylaxis On Lovenox Disposition: d/c pending on decision of discharge appeal. Also recommended hospice to patient, consulted CM Subjective Date of service: 03/07/18 Interval history: pt seen and examined no chest pain, c/o anxiety, breathing stable c/o inability to walk, right knee pain anxious to go home, appealed her discharge On 2L home O2, tolerating diet Objective - Exam Narrative Exam: General appearance: Present: no acute distress, well-nourished - EENT Eyes: PERRL, EOM intact ENT: hearing intact, clear oral mucosa Ears: bilateral: normal - Neck Neck: supple, normal ROM - Respiratory Respiratory effort: normal Respiratory: bilateral: CTA - Cardiovascular Rhythm: regular Heart Sounds: Present: S1 & S2. Absent: gallop, rub Extremities: pulses intact, No edema, normal color, Full ROM - Gastrointestinal General gastrointestinal: Present: soft, non-tender, non-distended, normal bowel sounds - Integumentary Integumentary: clear, warm, dry - Musculoskeletal Musculoskeletal: 1, strength equal bilaterally, right knee swelling - Neurologic Neurologic: moves all extremities - Psychiatric Psychiatric: intact judgment & insight, memory intact, other (anxious) - Constitutional Vitals: Vital Signs - 12hr 03/07/18 03/07/18 03/07/18 05:22 06:35 06:36 Temperature 98.0 F 98.6 F Pulse Rate 78 90 90 Respiratory 20 18 Rate Blood Pressure 130/58 164/85 164/85 O2 Sat by Pulse 97 94 Oximetry 03/07/18 03/07/18 03/07/18 10:10 10:11 12:16 Temperature 99.4 F Pulse Rate 90 90 Respiratory 22 Rate Blood Pressure 164/85 164/85 122/69 O2 Sat by Pulse 96 Oximetry 03/07/18 14:01 Temperature Pulse Rate Respiratory Rate Blood Pressure 126/69 O2 Sat by Pulse Oximetry - Labs CBC & Chem 7: 02/27/18 04:34 03/02/18 10:31
[2018-03-07] MEDS: AMBIEN PO PRN (21:35)
--- NOTE | 2018-03-07 23:42 | Progress Note ---
Assessment and Plan Patient alert, awake. Patient says breathing better. No acute respiratory distress.O2 saturation 98% on 2 litres O2. - Patient Problems (1) COPD (chronic obstructive pulmonary disease) Current Visit: No Status: Chronic Plan to address problem: O2 2 litres via nasal canula. Brovanna/Budesonide aerosol treatments q 12 hours. Albuterol inhaler 2 puffs po q 4 hours prn for shortness of breath. Continue S/C Lovenox. Continue famotidine. Continue solumedral. (2) Narcotic dependence Current Visit: Yes Status: Acute Plan to address problem: Counseled to stop smoking. Patient is on Vistaril for nicotine with drawl. (3) Opioid withdrawal delirium, acute, hyperactive Current Visit: Yes Status: Acute Plan to address problem: Manafement as per primary care. (4) Depression Current Visit: Yes Status: Chronic Qualifiers: Depression Type: unspecified Qualified Code(s): F32.9 - Major depressive disorder, single episode, unspecified Plan to address problem: Management as per primary care and psychiatry. (5) HTN (hypertension) Current Visit: Yes Status: Chronic Qualifiers: Hypertension type: essential hypertension Qualified Code(s): I10 - Essential (primary) hypertension Plan to address problem: Management as per primary care. 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 Subjective Date of service: 03/07/18 Interval history: Patient alert, awake. Patient says breathing better. No acute respiratory distress.O2 saturation 98% on 2 litres O2. Objective Vital Signs - 12hr 03/07/18 03/07/18 03/07/18 12:16 14:01 16:55 Temperature 99.4 F 100.2 F H Pulse Rate 90 98 H Pulse Rate [ Anterior Bilateral Throughout] Respiratory 22 22 Rate Respiratory Rate [Anterior Bilateral Throughout] Blood Pressure 122/69 126/69 149/76 Blood Pressure [Left] O2 Sat by Pulse 96 96 Oximetry 03/07/18 03/07/18 03/07/18 17:20 17:35 18:56 Temperature Pulse Rate Pulse Rate [ 98 H 92 H Anterior Bilateral Throughout] Respiratory Rate Respiratory 20 18 Rate [Anterior Bilateral Throughout] Blood Pressure 140/76 Blood Pressure [Left] O2 Sat by Pulse Oximetry 03/07/18 03/07/1819 19:34 19:35 19:49 Temperature Pulse Rate Pulse Rate [ 94 H 96 H Anterior Bilateral Throughout] Respiratory Rate Respiratory 20 20 Rate [Anterior Bilateral Throughout] Blood Pressure Blood Pressure [Left] O2 Sat by Pulse 96 Oximetry 03/07/18 03/07/18 21:32 21:35 Temperature 98.9 F Pulse Rate 87 87 Pulse Rate [ Anterior Bilateral Throughout] Respiratory 18 Rate Respiratory Rate [Anterior Bilateral Throughout] Blood Pressure 149/68 Blood Pressure 149/68 [Left] O2 Sat by Pulse 97 Oximetry Constitutional: no acute distress, alert, other (elderly looking AAF, norm ocephalic and atarumatic with mildly increased respiratory effort at rest) Eyes: non-icteric ENT: oropharynx moist Neck: supple, no lymphadenopathy, no JVD Effort: mildly labored Ascultation: Bilateral: diminished breath sounds, rhonchi (bases) Percussion: Bilateral: not dull Cardiovascular: regular rate and rhythm Gastrointestinal: normoactive bowel sounds, soft, non-tender, non-distended Integumentary: normal Extremities: no cyanosis, no edema, pulses normal, no ischemia or petechiae Neurologic: normal mental status, non-focal exam, pupils equal and round, CN II- XII normal Psychiatric: anxious CBC and BMP: 02/27/18 04:34 03/02/18 10:31 ABG, PT/INR, D-dimer: ABG POC ABG pH 7.419 (7.35-7.45) 03/03/18 11:36 POC ABG pCO2 47.6 (35-45) H 03/03/18 11:36 POC ABG pO2 63 (80-105) L 03/03/18 11:36 POC ABG HCO3 30.8 03/03/18 11:36 POC ABG Total CO2 32 03/03/18 11:36 POC ABG O2 Sat 92 03/03/18 11:36 Abnormal lab findings: Abnormal Labs 02/26/18 02/26/18 02/26/18 15:26 15:26 15:26 RDW 16.3 H [place] % (Auto) Eos % (Auto) POC ABG pCO2 POC ABG pO2 Carbon Dioxide BUN Creatinine Glucose Hemoglobin A1c Salicylates < 0.3 L Acetaminophen < 5.0 L 02/26/18 02/27/18 02/27/18 15:26 04:34 04:34 RDW 16.4 H [place] % (Auto) 9.4 H Eos % (Auto) 4.4 H POC ABG pCO2 POC ABG pO2 Carbon Dioxide 31 H BUN 36 H Creatinine 1.4 H Glucose 118 H Hemoglobin A1c 6.3 H Salicylates Acetaminophen 02/28/18 03/02/18 03/03/18 05:28 10:31 11:36 RDW [place] % (Auto) Eos % (Auto) POC ABG pCO2 47.6 H POC ABG pO2 63 L Carbon Dioxide BUN 32 H 22 H Creatinine 1.3 H Glucose 141 H 117 H Hemoglobin A1c Salicylates Acetaminophen Allied health notes reviewed: nursing
[2018-03-08] MEDS: APRESOLINE IV SCH ×3 (05:33→14:08)
[2018-03-08] MEDS: TYLENOL PO PRN (05:34)
[2018-03-08] MEDS: BROVANA NEBU IH SCH ×2 (07:53→19:06)
[2018-03-08] MEDS: PULMICORT IH SCH ×2 (07:53→19:06)
[2018-03-08] MEDS: SOLU-Medrol IV SCH (09:22)
[2018-03-08] MEDS: ZOLOFT PO SCH (09:22)
[2018-03-08] MEDS: CARDIZEM CD PO SCH (09:23)
[2018-03-08] MEDS: PEPCID PO SCH ×2 (09:23→21:01)
[2018-03-08] MEDS: LOPRESSOR PO SCH ×2 (09:23→21:01)
[2018-03-08] MEDS: LOVENOX SUB-Q SCH (09:24)
[2018-03-08] MEDS: SODIUM CHLORIDE FLUSH SYRINGE 10 ML IV SCH ×2 (09:25→22:13)
[2018-03-08] MEDS: FOLVITE PO SCH (09:25)
--- NOTE | 2018-03-08 14:53 | Progress Note ---
Assessment and Plan / Opiate dependence wanted to get detoxed Patient initiated on Suboxone protocol for 3 days - completed monitor at [facility] for withdrawl /BRYAN with depression Not suicidal Consulted psych and recommended followin. Continue Vistaril 50mg po Q 6hours PRN anxiety. 3. Increase Zoloft 100mg po QAM depression/anxiety 4. Add Buspar 7.5mg po TID anxiety patient refused to take buspar stating that she is having headache with it, stop Buspar for now, will add low dose xanax as needed / HTN (hypertension) COnt home antihypertensives, adjust dose as needed / COPD with chronic respiratory failure cont nebs, supplemental o2 consult pulmonary for discharge clearance as pt appears very anxious, On home O2 2L / Rheumatoid arteritis with debility Patient having swan neck deformities in both hands involving 2nd 3rd and 4 th fingers Methotrexate started at low dose once weekly Mild to moderate osteoarthritis on right knee xry, started on high dose steroid and now tapering off, reconsulted PT - recommended HH /Saúl, vasomotor nephropathy monitor BMP, avoid nephrotoxins, improved with gentle hydration / DVT prophylaxis On Lovenox Disposition: d/c pending on decision of discharge appeal. Also recommended hospice to patient, consulted CM Subjective Date of service: 03/08/18 Interval history: pt seen and examined no chest pain, c/o anxiety, breathing stable c/o inability to walk, right knee pain anxious to go home, appealed her discharge On 2L home O2, tolerating diet Objective - Exam Narrative Exam: General appearance: Present: no acute distress, well-nourished - EENT Eyes: PERRL, EOM intact ENT: hearing intact, clear oral mucosa Ears: bilateral: normal - Neck Neck: supple, normal ROM - Respiratory Respiratory effort: normal Respiratory: bilateral: CTA - Cardiovascular Rhythm: regular Heart Sounds: Present: S1 & S2. Absent: gallop, rub Extremities: pulses intact, No edema, normal color, Full ROM - Gastrointestinal General gastrointestinal: Present: soft, non-tender, non-distended, normal bowel sounds - Integumentary Integumentary: clear, warm, dry - Musculoskeletal Musculoskeletal: 1, strength equal bilaterally, right knee swelling - Neurologic Neurologic: moves all extremities - Psychiatric Psychiatric: intact judgment & insight, memory intact, other (anxious) - Constitutional Vitals: Vital Signs - 12hr 0103/08/18 03/08/18 05:29 07:50 07:57 Temperature 98.6 F Pulse Rate 75 Pulse Rate [ 102 H Anterior Bilateral Throughout] Respiratory 18 Rate Respiratory 20 Rate [Anterior Bilateral Throughout] Blood Pressure 136/72 O2 Sat by Pulse 95 96 Oximetry 03/08/18 03/08/18 03/08/18 08:10 09:23 14:08 Temperature Pulse Rate 110 H Pulse Rate [ 90 Anterior Bilateral Throughout] Respiratory Rate Respiratory 18 Rate [Anterior Bilateral Throughout] Blood Pressure 149/76 132/78 O2 Sat by Pulse Oximetry - Labs CBC & Chem 7: 02/27/18 04:34 03/02/18 10:31
[2018-03-08] MEDS: XANAX PO PRN (15:11)
--- NOTE | 2018-03-08 15:32 | Progress Note ---
Assessment and Plan Patient alert, awake. Patient says breathing better. No acute respiratory distress.O2 saturation 97% on 2 litres O2. Patient receiving aerosol treatment. - Patient Problems (1) COPD (chronic obstructive pulmonary disease) Current Visit: No Status: Chronic Plan to address problem: O2 2 litres via nasal canula. Brovanna/Budesonide aerosol treatments q 12 hours. Albuterol inhaler 2 puffs po q 4 hours prn for shortness of breath. Continue S/C Lovenox. Continue famotidine. Continue solumedral. (2) Narcotic dependence Current Visit: Yes Status: Acute Plan to address problem: Counseled to stop smoking. Patient is on Vistaril for nicotine with drawl. (3) Opioid withdrawal delirium, acute, hyperactive Current Visit: Yes Status: Acute Plan to address problem: Manafement as per primary care. (4) Depression Current Visit: Yes Status: Chronic Qualifiers: Depression Type: unspecified Qualified Code(s): F32.9 - Major depressive disorder, single episode, unspecified Plan to address problem: Management as per primary care and psychiatry. (5) HTN (hypertension) Current Visit: Yes Status: Chronic Qualifiers: Hypertension type: essential hypertension Qualified Code(s): I10 - Essential (primary) hypertension Plan to address problem: Management as per primary care. 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 Subjective Date of service: 03/08/18 Interval history: Patient alert, awake. Patient says breathing better. No acute respiratory distress.O2 saturation 97% on 2 litres O2. Patient receiving aerosol treatment. Objective Vital Signs - 12hr 03/08/18 03/08/18 03/08/18 05:29 07:50 07:57 Temperature 98.6 F Pulse Rate 75 Pulse Rate [ 102 H Anterior Bilateral Throughout] Respiratory 18 Rate Respiratory 20 Rate [Anterior Bilateral Throughout] Blood Pressure 136/72 O2 Sat by Pulse 95 96 Oximetry 03/08/18 03/08/18 03/08/18 08:10 09:23 14:08 Temperature Pulse Rate 110 H Pulse Rate [ 90 Anterior Bilateral Throughout] Respiratory Rate Respiratory 18 Rate [Anterior Bilateral Throughout] Blood Pressure 149/76 132/78 O2 Sat by Pulse Oximetry Constitutional: no acute distress, alert, other (elderly looking AAF, normocephalic and atarumatic with mildly increased respiratory effort at rest) Eyes: non-icteric ENT: oropharynx moist Neck: supple, no lymphadenopathy, no JVD Effort: mildly labored Ascultation: Bilateral: diminished breath sounds, rhonchi (bases) Percussion: Bilateral: not dull Cardiovascular: regular rate and rhythm Gastrointestinal: normoactive bowel sounds, soft, non-tender, non-distended Integumentary: normal Extremities: no cyanosis, no edema, pulses normal, no ischemia or petechiae Neurologic: normal mental status, non-focal exam, pupils equal and round, CN II- XII normal Psychiatric: anxious CBC and BMP: 02/27/18 04:34 03/02/18 10:31 ABG, PT/INR, D-dimer: ABG POC ABG pH 7.419 (7.35-7.45) 03/03/18 11:36 POC ABG pCO2 47.6 (35-45) H 03/03/18 11:36 POC ABG pO2 63 (80-105) L 03/03/18 11:36 POC ABG HCO3 30.8 03/03/18 11:36 POC ABG Total CO2 32 03/03/18 11:36 POC ABG O2 Sat 92 03/03/18 11:36 Abnormal lab findings: Abnormal Labs 02/26/18 02/26/18 02/26/18 15:26 15:26 15:26 RDW 16.3 H [place] % (Auto) Eos % (Auto) POC ABG pCO2 POC ABG pO2 Carbon Dioxide BUN Creatinine Glucose Hemoglobin A1c Salicylates < 0.3 L Acetaminophen < 5.0 L 02/26/18 02/27/18 02/27/18 15:26 04:34 04:34 RDW 16.4 H [place] % (Auto) 9.4 H Eos % (Auto) 4.4 H POC ABG pCO2 POC ABG pO2 Carbon Dioxide 31 H BUN 36 H Creatinine 1.4 H Glucose 118 H Hemoglobin A1c 6.3 H Salicylates Acetaminophen 02/28/18 03/02/18 03/03/18 05:28 10:31 11:36 RDW [place] % (Auto) Eos % (Auto) POC ABG pCO2 47.6 H POC ABG pO2 63 L Carbon Dioxide BUN 32 H 22 H Creatinine 1.3 H Glucose 141 H 117 H Hemoglobin A1c Salicylates Acetaminophen Allied health notes reviewed: nursing
[2018-03-08] MEDS: AMBIEN PO PRN (21:01)
[2018-03-09] MEDS: XANAX PO PRN ×2 (00:33→07:45)
[2018-03-09] MEDS: BROVANA NEBU IH SCH (07:39)
[2018-03-09] MEDS: PULMICORT IH SCH (07:39)
[2018-03-09] MEDS: TYLENOL PO PRN (09:29)
[2018-03-09] MEDS: ZOLOFT PO SCH (09:30)
[2018-03-09] MEDS: FOLVITE PO SCH (09:30)
[2018-03-09] MEDS: LOPRESSOR PO SCH (09:30)
[2018-03-09] MEDS: CARDIZEM CD PO SCH (09:31)
[2018-03-09] MEDS: PEPCID PO SCH (09:31)
[2018-03-09] MEDS: LOVENOX SUB-Q SCH (09:31)
[2018-03-09] MEDS: SODIUM CHLORIDE FLUSH SYRINGE 10 ML IV SCH (09:32)
[2018-03-09] MEDS ORDERED: DELTASONE PO SCH (10:00)
[2018-03-09] MEDS: VISTARIL PO PRN (12:29)
[2018-03-09 17:09] VITALS: BP 159/82
== END 2018-03-09 18:13 | disposition home health service (06) | DRG 896 ==
LOC: ED 11:26 → 3A 17:08
PROVIDERS: ADMIT Internal Medicine; ATTEND Internal Medicine
PROC: 4A033R1 Measurement of Arterial Saturation, Peripheral, Percutaneous Approach (ICD-10-PCS; principal; 2018-03-03)
DX: F11.23 Opioid dependence with withdrawal (principal); N17.0 Acute kidney failure with tubular necrosis; J44.1 Chronic obstructive pulmonary disease with (acute) exacerbation; J96.10 Chronic respiratory failure, unspecified whether with hypoxia or hypercapnia; I42.9 Cardiomyopathy, unspecified; F32.9 Major depressive disorder, single episode, unspecified; I11.0 Hypertensive heart disease with heart failure; I50.9 Heart failure, unspecified; M19.90 Unspecified osteoarthritis, unspecified site; K21.9 Gastro-esophageal reflux disease without esophagitis; G89.29 Other chronic pain; M06.9 Rheumatoid arthritis, unspecified; F41.1 Generalized anxiety disorder; Z79.899 Other long term (current) drug therapy
CPT/HCPCS: 36415; 36600; 71045; 80048; 80053; 80307; 80320; 81001; 82803; 83036; 84443; 85025; 87070; 87116; 87205; 90471; 90686; 94640; 94760; 96374; 96375; G0378; G0008; G0480; J0360; J1650; J2270; J2405; J2920; J7030; J7512; J8610; Q0177

== ENCOUNTER 2018-03-16 19:37 | Inpatient (IN) | payer MEDICARE ==
[2018-03-16] MEDS ORDERED: NACL 0.9% 1000 ML 1,000 ML IV ONE (19:59)
[2018-03-16] MEDS ORDERED: MORPHINE IV ONE (20:00)
[2018-03-16] MEDS ORDERED: ZOFRAN IV ONE (20:00)
--- NOTE | 2018-03-16 20:05 | Emergency Department Report ---
ED General Adult HPI - General Chief complaint: Arrhythmia/Palpitations Stated complaint: N/V/D & HEART PALPS Time Seen by Provider: 03/16/18 19:51 Source: patient, RN/MD, EMS Mode of arrival: Stretcher Limitations: No Limitations - History of Present Illness Initial comments: Patient is 67 years old female with severe history of rheumatoid arthritis, o pioid dependence. Patient was recently discharged from the hospital for opioid withdrawal. Patient presented to the emergency room via EMS complaining of palpitation, nausea, vomiting and generalized body pain. Patient is tachypneic with watery eyes. Patient with significant shaking. Patient stated that she was using oxycodone for the last 6 year and she stopped taking it one month ago. - Related Data Previous Rx's Medication Instructions Recorded Last Taken Type Budesonide/Formoterol Fumarate 10.2 gm IH BID 30 Days hfa.aer.ad 03/05/18 Un known Rx [Symbicort 160-4.5 Mcg Inhaler] RX: ALBUTEROL NEB's [Proventil 2.5 mg IH Q4HRT PRN #30 nebu 03/05/18 Unknown Rx 0.083% NEBS] RX: Folic Acid [Folvite] 1 mg PO QDAY #30 tablet 03/05/18 Unknown Rx RX: Metoprolol [Lopressor TAB] 25 mg PO BID #60 tablet 03/05/18 Unknown Rx RX: Sertraline [Zoloft] 100 mg PO QDAY #30 tablet 03/05/18 Unknown Rx RX: busPIRone [Buspar] 7.5 mg PO TID #90 tablet 03/05/18 Unknown Rx RX: cloNIDine-TTS PATCH 0.2 mg TD Sa #10 patch 03/05/18 Unknown Rx [Catapres-Tts Patch] RX: dilTIAZem CD [Cardizem CD] 240 mg PO QDAY #30 capsule 03/05/18 Unknown Rx RX: hydrOXYzine PAMOATE [Vistaril] 50 mg PO Q6H PRN #90 capsule 03/05/18 Unknown Rx RX: metHOTREXate(DOSE WEEKLY ONLY) 7.5 mg PO Fr@1000 #4 tablet 03/05/18 Unknown Rx [metHOTREXate (DOSE WEEKLY ONLY)] RX: predniSONE [Prednisone] 50 mg PO DAILY #7 tablet 03/05/18 Unknown Rx Allergies Allergy/AdvReac Type Severity Reaction Status Date / Time No Known Allergies Allergy Unverified 01/26/18 13:56 ED Review of Systems ROS: Stated complaint: N/V/D & HEART PALPS Other details as noted in HPI Comment: All other systems reviewed and negative Eyes: denies: vision change ENT: denies: throat pain, dental pain, hearing loss Respiratory: shortness of breath. denies: cough, orthopnea, SOB with exertion, SOB at rest, wheezing Cardiovascular: palpitations. denies: chest pain, dyspnea on exertion, orthopnea Gastrointestinal: nausea, vomiting. denies: abdominal pain, diarrhea, constipation, hematemesis, melena, hematochezia Musculoskeletal: back pain, arthralgia, myalgia. denies: joint swelling Neurological: denies: headache, weakness, numbness, paresthesias, confusion, abnormal gait ED Past Medical Hx - Past Medical History Hx Hypertension: Yes Hx Heart Attack/AMI: No Hx Congestive Heart Failure: Yes Hx Deep Vein Thrombosis: No Hx Pulmonary Embolism: No Hx GERD: Yes Hx Arthritis: Yes Hx Asthma: No Hx COPD: Yes Hx Tuberculosis: No Additional medical history: chronic back pain - Surgical History Hx Coronary Stent: No Hx Pacemaker: No Hx Internal Defibrillator: No Additional Surgical History: hernia repair and lower back/ cycst removal - Social History Smoking Status: Never Smoker Substance Use Type: None - Medications Home Medications: Home Medications Medication Instructions Recorded Confirmed Last Taken Type Budesonide/Formoterol Fumarate 10.2 gm IH BID 30 Days hfa.aer.ad 03/05/18 Unknown Rx [Symbicort 160-4.5 Mcg Inhaler] RX: ALBUTEROL NEB's [Proventil 2.5 mg IH Q4HRT PRN #30 nebu 03/05/18 Unknown Rx 0.083% NEBS] RX: Folic Acid [Folvite] 1 mg PO QDAY #30 tablet 03/05/18 Unknown Rx RX: Metoprolol [Lopressor TAB] 25 mg PO BID #60 tablet 03/05/18 Unknown Rx RX: Sertraline [Zoloft] 100 mg PO QDAY #30 tablet 03/05/18 Unknown Rx RX: busPIRone [Buspar] 7.5 mg PO TID #90 tablet 03/05/18 Unknown Rx RX: cloNIDine-TTS PATCH 0.2 mg TD Sa #10 patch 03/05/18 Unknown Rx [Catapres-Tts Patch] RX: dilTIAZem CD [Cardizem CD] 240 mg PO QDAY #30 capsule 03/05/18 Unknown Rx RX: hydrOXYzine PAMOATE [Vistaril] 50 mg PO Q6H PRN #90 capsule 03/05/18 Unknown Rx RX: metHOTREXate(DOSE WEEKLY ONLY) 7.5 mg PO Fr@1000 #4 tablet 03/05/18 Unknown Rx [metHOTREXate (DOSE WEEKLY ONLY)] RX: predniSONE [Prednisone] 50 mg PO DAILY #7 tablet 03/05/18 Unknown Rx ED Physical Exam - General Limitations: No Limitations General appearance: alert, anxious, other (shaking) - Head Head exam: Present: atraumatic, normocephalic, normal inspection - Eye Eye exam: Present: normal appearance, PERRL - ENT ENT exam: Present: normal exam, normal orophraynx, mucous membranes moist - Neck Neck exam: Present: normal inspection, full ROM. Absent: tenderness, mening ismus, lymphadenopathy, thyromegaly - Respiratory Respiratory exam: Present: normal lung sounds bilaterally. Absent: respiratory distress, wheezes, rales, rhonchi, stridor, chest wall tenderness, accessory muscle use, decreased breath sounds, prolonged expiratory - Cardiovascular Cardiovascular Exam: Present: tachycardia - GI/Abdominal GI/Abdominal exam: Present: soft, normal bowel sounds. Absent: distended, tenderness, guarding, rebound, rigid, organomegaly, mass, bruit, pulsatile mass, hernia - Extremities Exam Extremities exam: Present: normal inspection, full ROM, normal capillary refill. Absent: tenderness, pedal edema, joint swelling, calf tenderness - Back Exam Back exam: Present: normal inspection, full ROM. Absent: tenderness, CVA tenderness (R), CVA tenderness (L), muscle spasm, paraspinal tenderness, vertebral tenderness - Neurological Exam Neurological exam: Present: alert, oriented X3, CN II-XII intact - Psychiatric Psychiatric exam: Present: anxious. Absent: depressed, agitated, flat affect, m anic, homicidal ideation, suicidal ideation - Skin Skin exam: Present: warm, intact, normal color ED Course Vital Signs 03/16/18 03/16/18 03/16/18 19:39 19:42 19:45 Temperature 98.7 F Pulse Rate 103 H 109 H 96 H Respiratory 24 12 Rate Blood Pressure 159/88 154/93 O2 Sat by Pulse 98 99 Oximetry 03/16/18 03/16/18 03/16/18 19:46 20:00 20:15 Temperature Pulse Rate 95 H 85 Respiratory 18 14 18 Rate Blood Pressure 158/89 155/80 O2 Sat by Pulse 99 99 98 Oximetry 03/16/18 20:30 Temperature Pulse Rate 80 Respiratory 22 Rate Blood Pressure 159/79 O2 Sat by Pulse 99 Oximetry ED Medical Decision Making - Lab Data Result diagrams: 03/16/18 20:18 03/16/18 20:18 - EKG Data -: EKG Interpreted by Id EKG shows normal: sinus rhythm Rate: normal - EKG Data Interpretation: no acute changes - Radiology Data Radiology results: report reviewed Referring Physician: DAVIS PEREZ Patient Name: FARSHAD RIVERA Date of : 1950 Sex: Female Report Date: 2018-03-16 Report Status: [place] [address] XRay Report Signed Patient: FARSHAD RIVERA MR#: [id number] : 1950 Acct:[id number] Age/Sex: 67 / F ADM Date: 03/16/18 Loc: ED Attending Dr: Ordering Physician: DAVIS PEREZ Date of Service: 03/16/18 Procedure(s): XR chest 1V ap Accession Number(s): [id number] cc: DAVIS PEREZ Fluoro Time In Minutes: FINAL REPORT EXAM: XR CHEST 1V AP HISTORY: Dyspnea TECHNIQUE: Frontal chest x-ray semi upright portable chest x-ray Comparison: 02/26/2018, 01/27/2018, 01/19/2018 FINDINGS: Left ventricular configuration to heart. Pulmonary outflow tract, unchanged from previous. Incomplete penetration left lung base. Hyperlucent lungs suggestive of emphysema. Degenerative arthritis bilateral glenohumeral joints. IMPRESSION: Emphysema. No definite acute cardiopulmonary disease. Incompletely penetrated left lung b ase. Left ventricular configuration to the heart suggestive of systemic hypertension. Prominent pulmonary outflow tract may represent pulmonary arterial hypertension. If there is a clinical consideration for pulmonary embolus, consider CTA chest. Transcribed By: MP Dictated By: NATALIA HALE Electronically Authenticated By: NATALIA HALE Signed Date/Time: 03/16/182057 DD/ 99 TD/TT: 03/16/182099 Referring Physician: DAVIS PEREZ Patient Name: FARSHAD RIVERA Date of : 1950 Sex: Female Report Date: 2018-03-16 Report Status: Finalized Findings [facility] [address] [place] [address] Cat Scan Report Signed Patient: FARSHAD RIVERA MR#: [id number] : 1950 Acct:[id number] Age/Sex: 67 / F ADM Date: 03/16/18 Loc: ED Attending Dr: Ordering Physician: DAVIS PEREZ Date of Service: 03/16/18 Procedure(s): CT angio chest Accession Number(s): [id number] cc: DAVIS PEREZ FINAL REPORT PROCEDURE: CT angiogram chest with contrast. TECHNIQUE: Computerized tomographic angiography of the chest was performed after the IV injection of iodinated nonionic contrast including image processing. The image data was po stprocessed using 2- dimensional multiplanar reformatted (MPR) and 3-dimensional (MIP and/or volume rendered) techniques. HISTORY: Shortness of breath and tachypnea. COMPARISON: No prior studies are available for comparison. FINDINGS: The trachea and central bronchi appear normal. There is minimal subsegmental atelectasis adjacent to the minor fissure and adjacent to the left major fissure. The lungs are otherwise clear and well expanded. There are no signs of pneumonia. There are no pleural effusions. The thoracic aorta has a normal caliber without evidence of dissection. There is some atherosclerotic calcification in the aortic arch. The pulmonary arteries enhance normally. There are no filling defects to suggest pulmonary embolism. There is no mediastinal adenopathy. The heart size is normal. The adrenal glands are not enlarged. There are bilateral renal cysts. The thoracic skeleton appears intact. There is a mild thoracic scoliosis. IMPRESSION: No evidence of pulmonary embolism. Small areas of subsegmental atelectasis in both lungs as described. Transcribed By: EMMA Dictated By: DIEGO LLOYD MD Electronically Authenticated By: DIEGO LLOYD MD Signed Date/Time: 03/16/182332 DD/ 33 TD/TT: 03/16/182333 - Medical Decision Making Patient is 67 years old female with severe history of rheumatoid arthritis, opioid dependence. Patient was recently discharged from the hospital for opioid withdrawal. Patient presented to the emergency room via EMS complaining of palpitation, nausea, vomiting and generalized body pain. Patient is tachypneic with watery eyes. Patient with significant shaking. Patient stated that she was using oxycodone for the last 6 year and she stop taking it one month ago Patient stated that she is feeling better. Patient received morphine and Zofran. A CTA chest is negative for pulmonary embolism. I believe patient's symptoms is most likely related to opioid withdrawal. Patient stated that she wanted to be admitted to [facility]. I discussed the case with charge nurse Marta for arrangement. Critical care attestation.: If time is entered above; I have spent that time in minutes in the direct care of this critically ill patient, excluding procedure time. ED Disposition Clinical Impression: Palpitations, Narcotic dependence, Shortness of breath Disposition: DC/TX-65 PSY HOSP/PSY UNIT Is pt being admited?: No Condition: Stable Instructions: Narcotic Abuse (ED), Opioid Withdrawal (ED) Referrals: MICHAEL VALDERRAMA MD [Primary Care Provider] - 3-5 Days
[2018-03-16 20:28] LABS: Basophils # (Auto) 0.1 K/mm3 (0.0-0.1); Basophils % (Auto) 0.5 % (0.0-1.8); Hematocrit 36.2 % (30.3-42.9); Lymphocytes % (Auto) 8.8 % (13.4-35.0); Mean Corpuscular HGB Conc 33 % (30-34); Mean Corpuscular Volume 90 fl (79-97); Monocytes # (Auto) 0.5 K/mm3 (0.0-0.8); Monocytes % (Auto) 4.2 % (0.0-7.3); Platelet Count 245 K/mm3 (140-440); Red Blood Count 4.04 M/mm3 (3.65-5.03); Red Cell Distribution Width 16.6 % (13.2-15.2)
[2018-03-16 20:46] LABS: INR 0.96 (0.87-1.13); Partial Thromboplastin Time 24.8 Sec. (24.2-36.6)
--- NOTE | 2018-03-16 20:58 | XRay Report ---
FINAL REPORT EXAM: XR CHEST 1V AP HISTORY: Dyspnea TECHNIQUE: Frontal chest x-ray semi upright portable chest x-ray Comparison: 02/26/2018, 01/27/2018, 01/19/2018 FINDINGS: Left ventricular configuration to heart. Pulmonary outflow tract, unchanged from previous. Incomplete penetration left lung base. Hyperlucent lungs suggestive of emphysema. Degenerative arthritis bilateral glenohumeral joints. IMPRESSION: Emphysema. No definite acute cardiopulmonary disease. Incompletely penetrated left lung base. Left ventricular configuration to the heart suggestive of systemic hypertension. Prominent pulmonary outflow tract may represent pulmonary arterial hypertension. If there is a clinic al consideration for pulmonary embolus, consider CTA chest.
[2018-03-16 21:15] LABS: Calcium 9.5 mg/dL (8.4-10.2)
[2018-03-16 21:17] LABS: Alanine Aminotransferase 12 units/L (7-56); Albumin 4.4 g/dL (3.9-5)
[2018-03-16 21:18] LABS: Bilirubin,Direct < 0.2 mg/dL (0-0.2)
[2018-03-16] MEDS ORDERED: ATIVAN IV ONE (23:02)
[2018-03-16] MEDS ORDERED: ATIVAN ONE (23:06)
[2018-03-16 23:22] LABS: Bacteria,Urine 1+ /HPF (Negative); Bilirubin,Urine NEG (Negative); Blood,Urine NEG (Negative); Color,Urine Yellow (Yellow); Mucus,Urine FEW /HPF; Protein,Urine <15 mg/dL mg/dL (Negative); Urobilinogen,Urine < 2.0 mg/dL (<2.0)
--- NOTE | 2018-03-16 23:33 | Cat Scan Report ---
FINAL REPORT PROCEDURE: CT angiogram chest with contrast. TECHNIQUE: Computerized tomographic angiography of the chest was performed after the IV injection of iodinated nonionic contrast including image processing. The image data was postprocessed using 2-dim ensional multiplanar reformatted (MPR) and 3-dimensional (MIP and/or volume rendered) techniques. HISTORY: Shortness of breath and tachypnea. COMPARISON: No prior studies are available for comparison. FINDINGS: The trachea and central bronchi appear normal. There is minimal subsegmental atelectasis adjacent to the minor fissure and adjacent to the left major fissure. The lungs are otherwise clear and well expa nded. There are no signs of pneumonia. There are no pleural effusions. The thoracic aorta has a barrington l caliber without evidence of dissection. There is some atherosclerotic calcification in the aortic a rch. The pulmonary arteries enhance normally. There are no filling defects to suggest pulmonary embol ism. There is no mediastinal adenopathy. The heart size is normal. The adrenal glands are not enlarge d. There are bilateral renal cysts. The thoracic skeleton appears intact. There is a mild thoracic sc oliosis. IMPRESSION: No evidence of pulmonary embolism. Small areas of subsegmental atelectasis in both lungs as described .
[2018-03-17] MEDS ORDERED: BENADRYL PO ONE (02:37)
[2018-03-17] MEDS ORDERED: TYLENOL PO ONE (09:14)
[2018-03-17] MEDS ORDERED: TYLENOL ONE (09:14)
[2018-03-17] MEDS ORDERED: BENTYL PO PRN (11:10)
--- NOTE | 2018-03-17 11:10 | History and Physical Report ---
History of Present Illness Date of examination: 03/17/18 Date of admission: 03/17/18 09:55 Chief complaint: Opioid withdrawal History of present illness: Patient is 67 years old female with severe history of rheumatoid arthritis, opioid dependence. Patient was recently discharged from the hospital for opioid withdrawal. Patient presented to the emergency room via EMS complaining of palpitation, nausea, vomiting and generalized body pain. Patient is tachypneic with watery eyes. Patient with significant shaking. Patient stated that she was using oxycodone for the last 6 year and she stopped taking it one month ago. Patient is now being admitted for opioid withdrawal. Past History Past Medical History: arthritis (rheumatoid), other Past Surgical History: No surgical history Social history: other (opioid dependence) Family history: no significant family history Medications and Allergies Allergies Allergy/AdvReac Type Severity Reaction Status Date / Time No Known Allergies Allergy Unverified 01/26/18 13:56 Home Medications Medication Instructions Recorded Confirmed Last Taken Type ALBUTEROL NEB's [Proventil 0.083% 2.5 mg IH Q4HRT PRN #30 nebu 03/05/18 Unknown Rx NEBS] Budesonide/Formoterol Fumarate 10.2 gm IH BID 30 Days hfa.aer.ad 03/05/18 Unknown Rx [Symbicort 160-4.5 Mcg Inhaler] Folic Acid [Folvite] 1 mg PO QDAY #30 tablet 03/05/18 Unknown Rx Metoprolol [Lopressor TAB] 25 mg PO BID #60 tablet 03/05/18 Unknown Rx Sertraline [Zoloft] 100 mg PO QDAY #30 tablet 03/05/18 Unknown Rx busPIRone [Buspar] 7.5 mg PO TID #90 tablet 03/05/18 Unknown Rx cloNIDine-TTS PATCH [Catapres-Tts 0.2 mg TD Sa #10 patch 03/05/18 Unknown Rx Patch] dilTIAZem CD [Cardizem CD] 240 mg PO QDAY #30 capsule 03/05/18 Unknown Rx hydrOXYzine PAMOATE [Vistaril] 50 mg PO Q6H PRN #90 capsule 03/05/18 Unknown Rx metHOTREXate(DOSE WEEKLY ONLY) 7.5 mg PO Fr@1000 #4 tablet 03/05/18 Unknown Rx [metHOTREXate (DOSE WEEKLY ONLY)] predniSONE [Prednisone] 50 mg PO DAILY #7 tablet 03/05/18 Unknown Rx Review of Systems All systems: negative Exam - Constitutional Vitals: Temp Pulse Resp BP Pulse Ox 98.7 F 91 H 24 177/99 99 03/17/18 07:50 03/17/18 07:30 03/17/18 07:30 03/17/18 07:30 03/17/18 07:30 General appearance: Present: no acute distress, well-nourished - EENT Eyes: Present: PERRL ENT: hearing intact, clear oral mucosa - Neck Neck: Present: supple, normal ROM - Respiratory Respiratory effort: normal Respiratory: bilateral: CTA - Cardiovascular Heart Sounds: Present: S1 & S2. Absent: rub, click - Extremities Extremities: pulses symmetrical, No edema Peripheral Pulses: within normal limits - Abdominal General gastrointestinal: Present: soft, non-tender, non-distended, normal bowel sounds Female genitourinary: Present: normal - Integumentary Integumentary: Present: clear, warm, dry - Musculoskeletal Musculoskeletal: gait normal, strength equal bilaterally - Psychiatric Psychiatric: appropriate mood/affect, intact judgment & insight - Neurologic Neurologic: CNII-XII intact, moves all extremities Results - Labs CBC & Chem 7: 03/16/18 20:18 03/16/18 20:18 Labs: Laboratory Last Values WBC 11.3 K/mm3 (4.5-11.0) H 03/16/18 20:18 RBC 4.04 M/mm3 (3.65-5.03) 03/16/18 20:18 Hgb 12.0 gm/dl (10.1-14.3) 03/16/18 20:18 Hct 36.2 % (30.3-42.9) 03/16/18 20:18 MCV 90 fl (79-97) 03/16/18 20:18 MCH 30 pg (28-32) 03/16/18 20:18 MCHC 33 % (30-34) 03/16/18 20:18 RDW 16.6 % (13.2-15.2) H 03/16/18 20:18 Plt Count 245 K/mm3 (140-440) 03/16/18 20:18 Lymph % (Auto) 8.8 % (13.4-35.0) L 03/16/18 20:18 [place] % (Auto) 4.2 % (0.0-7.3) 03/16/18 20:18 Eos % (Auto) 0.0 % (0.0-4.3) 03/16/18 20:18 Baso % (Auto) 0.5 % (0.0-1.8) 03/16/18 20:18 Lymph # 1.0 K/mm3 (1.2-5.4) L 03/16/18 20:18 [place] # 0.5 K/mm3 (0.0-0.8) 03/16/18 20:18 Eos # 0.0 K/mm3 (0.0-0.4) 03/16/18 20:18 Baso # 0.1 K/mm3 (0.0-0.1) 03/16/18 20:18 Seg Neutrophils % 86.5 % (40.0-70.0) H 03/16/18 20:18 Seg Neutrophils # 9.8 K/mm3 (1.8-7.7) H 03/16/18 20:18 PT 13.2 Sec. (12.2-14.9) 03/16/18 20:18 INR 0.96 (0.87-1.13) 03/16/18 20:18 APTT 24.8 Sec. (24.2-36.6) 03/16/18 20:18 Sodium 143 mmol/L (137-145) 03/16/18 20:18 Potassium 3.7 mmol/L (3.6-5.0) 03/16/18 20:18 Chloride 103.7 mmol/L (98-107) 03/16/18 20:18 Carbon Dioxide 26 mmol/L (22-30) 03/16/18 20:18 Anion Gap 17 mmol/L 03/16/18 20:18 BUN 24 mg/dL (7-17) H 03/16/18 20:18 Creatinine 1.1 mg/dL (0.7-1.2) 03/16/18 20:18 Estimated GFR 60 ml/min 03/16/18 20:18 BUN/Creatinine Ratio 22 % 03/16/18 20:18 Glucose 113 mg/dL (65-100) H 03/16/18 20:18 Calcium 9.5 mg/dL (8.4-10.2) 03/16/18 20:18 Total Bilirubin 0.30 mg/dL (0.1-1.2) 03/16/18 20:18 Direct Bilirubin < 0.2 mg/dL (0-0.2) 03/16/18 20:18 Indirect Bilirubin 0.1 mg/dL 03/16/18 20:18 AST 16 units/L (5-40) 03/16/18 20:18 ALT 12 units/L (7-56) 03/16/18 20:18 Alkaline Phosphatase 65 units/L (35-129) 03/16/18 20:18 Troponin T < 0.010 ng/mL (0.00-0.029) 03/16/18 20:18 NT-Pro-B Natriuret Pep 593.3 pg/mL (0-900) 03/16/18 20:18 Total Protein 6.4 g/dL (6.3-8.2) 03/16/18 20:18 Albumin 4.4 g/dL (3.9-5) 03/16/18 20:18 Albumin/Globulin Ratio 2.2 % 03/16/18 20:18 Urine Color Yellow (Yellow) 03/16/18 23:02 Urine Turbidity Clear (Clear) 03/16/18 23:02 Urine pH 5.0 (5.0-7.0) 03/16/18 23:02 Ur Specific [place] 1.039 (1.003-1.030) H 03/16/18 23:02 Urine Protein <15 mg/dl mg/dL (Negative) 03/16/18 23:02 Urine Glucose (UA) Neg mg/dL (Negative) 03/16/18 23:02 Urine Ketones Neg mg/dL (Negative) 03/16/18 23:02 Urine Blood Neg (Negative) 03/16/18 23:02 Urine Nitrite Neg (Negative) 03/16/18 23:02 Urine Bilirubin Neg (Negative) 03/16/18 23:02 Urine Urobilinogen < 2.0 mg/dL (<2.0) 03/16/18 23:02 Ur Leukocyte Esterase Neg (Negative) 03/16/18 23:02 Urine WBC (Auto) 2.0 /HPF (0.0-6.0) 03/16/18 23:02 Urine RBC (Auto) 2.0 /HPF (0.0-6.0) 03/16/18 23:02 U Epithel Cells (Auto) 1.0 /HPF (0-13.0) 03/16/18 23:02 Urine Bacteria (Auto) 1+ /HPF (Negative) 03/16/18 23:02 Urine Mucus Few /HPF 03/16/18 23:02 Assessment and Plan Assessment and plan: Opioid withdrawal. Patient will be admitted to the medical stabilization unit for withdrawal protocol. Dyspnea/tachypnea. Etiology likely secondary to above with hyperventilation. Consider ABG. CT of the chest negative for PE. Opioid dependence.
[2018-03-17] MEDS ORDERED: ZOFRAN IV PRN (11:13)
[2018-03-17] MEDS ORDERED: SODIUM CHLORIDE FLUSH SYRINGE 10 ML IV PRN (11:13)
[2018-03-17] MEDS: LIBRIUM PO PRN ×2 (12:31→20:11)
[2018-03-17] MEDS: NACL 0.9% 1000 ML 1,000 ML IV SCH (12:35)
[2018-03-17] MEDS: SUBOXONE 2 MG-0.5 MG SL SCH ×2 (13:47→21:56)
[2018-03-17] MEDS ORDERED: VITAMIN B-1 100 MG, FOLVITE 1 MG, INFUVITE 10 ML in NACL 0.9% 1000 ML 1,000 ML IV ONE (16:44)
[2018-03-17] MEDS: SODIUM CHLORIDE FLUSH SYRINGE 10 ML IV SCH (22:35)
[2018-03-17] MEDS: AMBIEN PO PRN (23:36)
[2018-03-18 05:33] LABS: Basophils % (Auto) 0.5 % (0.0-1.8); Eosinophils # (Auto) 0.4 K/mm3 (0.0-0.4); Eosinophils % (Auto) 5.7 % (0.0-4.3); Hematocrit 34.2 % (30.3-42.9); Hemoglobin 11.1 gm/dl (10.1-14.3); Lymphocytes # (Auto) 1.9 K/mm3 (1.2-5.4); Lymphocytes % (Auto) 25.9 % (13.4-35.0); Mean Corpuscular HGB Conc 32 % (30-34); Mean Corpuscular Volume 92 fl (79-97); Monocytes # (Auto) 0.7 K/mm3 (0.0-0.8); Monocytes % (Auto) 9.7 % (0.0-7.3); Platelet Count 207 K/mm3 (140-440); Red Blood Count 3.73 M/mm3 (3.65-5.03); Red Cell Distribution Width 16.9 % (13.2-15.2)
[2018-03-18 05:48] LABS: BUN/Creatinine Ratio 36; Blood Urea Nitrogen 32 mg/dL (7-17); Calcium 8.7 mg/dL (8.4-10.2); Hemolysis Index 8
[2018-03-18] MEDS: SUBOXONE 2 MG-0.5 MG SL SCH ×4 (05:58→21:59)
[2018-03-18] MEDS: LIBRIUM PO PRN ×2 (07:21→15:18)
[2018-03-18] MEDS: LOVENOX SUB-Q SCH (10:54)
[2018-03-18] MEDS: LOPRESSOR PO SCH ×2 (10:55→21:59)
[2018-03-18] MEDS: SODIUM CHLORIDE FLUSH SYRINGE 10 ML IV SCH ×2 (10:56→22:01)
[2018-03-18] MEDS: NACL 0.9% 1000 ML 1,000 ML IV SCH (10:59)
--- NOTE | 2018-03-18 11:01 | Progress Note ---
Assessment and Plan Assessment and plan: Opioid withdrawal. Continue withdrawal protocol. Dyspnea/tachypnea. Resolved. CT of the chest negative for PE. Opioid dependence. History Interval history: No new issues overnight. Hospitalist Physical - Constitutional Vitals: Temp Pulse Resp BP Pulse Ox 98.3 F 104 H 22 159/74 92 03/18/18 07:52 03/18/18 10:55 03/18/18 07:52 03/18/18 10:55 03/18/18 07:52 General appearance: Present: no acute distress, well-nourished - EENT Eyes: Present: PERRL, EOM intact ENT: hearing intact, clear oral mucosa, dentition normal - Neck Neck: Present: supple, normal ROM - Respiratory Respiratory effort: normal Respiratory: bilateral: CTA - Cardiovascular Rhythm: regular Heart Sounds: Present: S1 & S2. Absent: gallop, rub - Extremities Extremities: no ischemia, No edema, Full ROM - Abdominal General gastrointestinal: soft, non-tender, non-distended, normal bowel sounds - Integumentary Integumentary: Present: clear, warm, dry - Neurologic Neurologic: CNII-XII intact, moves all extremities Results - Labs CBC & Chem 7: 03/18/18 05:15 03/18/18 05:15 Labs: Laboratory Last Values WBC 7.3 K/mm3 (4.5-11.0) 03/18/18 05:15 RBC 3.73 M/mm3 (3.65-5.03) 03/18/18 05:15 Hgb 11.1 gm/dl (10.1-14.3) 03/18/18 05:15 Hct 34.2 % (30.3-42.9) 03/18/18 05:15 MCV 92 fl (79-97) 03/18/18 05:15 MCH 30 pg (28-32) 03/18/18 05:15 MCHC 32 % (30-34) 03/18/18 05:15 RDW 16.9 % (13.2-15.2) H 03/18/18 05:15 Plt Count 207 K/mm3 (140-440) 03/18/18 05:15 Lymph % (Auto) 25.9 % (13.4-35.0) 03/18/18 05:15 [place] % (Auto) 9.7 % (0.0-7.3) H 03/18/18 05:15 Eos % (Auto) 5.7 % (0.0-4.3) H 03/18/18 05:15 Baso % (Auto) 0.5 % (0.0-1.8) 03/18/18 05:15 Lymph # 1.9 K/mm3 (1.2-5.4) 03/18/18 05:15 [place] # 0.7 K/mm3 (0.0-0.8) 03/18/18 05:15 Eos # 0.4 K/mm3 (0.0-0.4) 03/18/18 05:15 Baso # 0.0 K/mm3 (0.0-0.1) 03/18/18 05:15 Seg Neutrophils % 58.2 % (40.0-70.0) 03/18/18 05:15 Seg Neutrophils # 4.3 K/mm3 (1.8-7.7) 03/18/18 05:15 PT 13.2 Sec. (12.2-14.9) 03/16/18 20:18 INR 0.96 (0.87-1.13) 03/16/18 20:18 APTT 24.8 Sec. (24.2-36.6) 03/16/18 20:18 Sodium 148 mmol/L (137-145) H 03/18/18 05:15 Potassium 4.0 mmol/L (3.6-5.0) 03/18/18 05:15 Chloride 108.4 mmol/L (98-107) H 03/18/18 05:15 Carbon Dioxide 28 mmol/L (22-30) 03/18/18 05:15 Anion Gap 16 mmol/L 03/18/18 05:15 BUN 32 mg/dL (7-17) H 03/18/18 05:15 Creatinine 0.9 mg/dL (0.7-1.2) 03/18/18 05:15 Estimated GFR > 60 ml/min 03/18/18 05:15 BUN/Creatinine Ratio 36 % 03/18/18 05:15 Glucose 135 mg/dL (65-100) H 03/18/18 05:15 Calcium 8.7 mg/dL (8.4-10.2) 03/18/18 05:15 Total Bilirubin 0.30 mg/dL (0.1-1.2) 03/16/18 20:18 Direct Bilirubin < 0.2 mg/dL (0-0.2) 03/16/18 20:18 Indirect Bilirubin 0.1 mg/dL 03/16/18 20:18 AST 16 units/L (5-40) 03/16/18 20:18 ALT 12 units/L (7-56) 03/16/18 20:18 Alkaline Phosphatase 65 units/L (35-129) 03/16/18 20:18 Troponin T < 0.010 ng/mL (0.00-0.029) 03/16/18 20:18 NT-Pro-B Natriuret Pep 593.3 pg/mL (0-900) 03/16/18 20:18 Total Protein 6.4 g/dL (6.3-8.2) 03/16/18 20:18 Albumin 4.4 g/dL (3.9-5) 03/16/18 20:18 Albumin/Globulin Ratio 2.2 % 03/16/18 20:18 Urine Color Yellow (Yellow) 03/16/18 23:02 Urine Turbidity Clear (Clear) 03/16/18 23:02 Urine pH 5.0 (5.0-7.0) 03/16/18 23:02 Ur Specific [place] 1.039 (1.003-1.030) H 03/16/18 23:02 Urine Protein <15 mg/dl mg/dL (Negative) 03/16/18 23:02 Urine Glucose (UA) Neg mg/dL (Negative) 03/16/18 23:02 Urine Ketones Neg mg/dL (Negative) 03/16/18 23:02 Urine Blood Neg (Negative) 03/16/18 23:02 Urine Nitrite Neg (Negative) 03/16/18 23:02 Urine Bilirubin Neg (Negative) 03/16/18 23:02 Urine Urobilinogen < 2.0 mg/dL (<2.0) 03/16/18 23:02 Ur Leukocyte Esterase Neg (Negative) 03/16/18 23:02 Urine WBC (Auto) 2.0 /HPF (0.0-6.0) 03/16/18 23:02 Urine RBC (Auto) 2.0 /HPF (0.0-6.0) 03/16/18 23:02 U Epithel Cells (Auto) 1.0 /HPF (0-13.0) 03/16/18 23:02 Urine Bacteria (Auto) 1+ /HPF (Negative) 03/16/18 23:02 Urine Mucus Few /HPF 03/16/18 23:02
[2018-03-18] MEDS: TYLENOL PO PRN (15:31)
[2018-03-18] MEDS: AMBIEN PO PRN (21:58)
[2018-03-19] MEDS: NACL 0.9% 1000 ML 1,000 ML IV SCH ×2 (01:41→12:09)
[2018-03-19] MEDS: TYLENOL PO PRN (06:06)
[2018-03-19] MEDS: LIBRIUM PO PRN ×2 (06:06→12:08)
[2018-03-19] MEDS: LOPRESSOR PO SCH ×2 (09:47→21:49)
[2018-03-19] MEDS: LOVENOX SUB-Q SCH (09:49)
[2018-03-19] MEDS: SODIUM CHLORIDE FLUSH SYRINGE 10 ML IV SCH (09:50)
[2018-03-19] MEDS: SUBOXONE 2 MG-0.5 MG SL SCH ×3 (09:50→21:52)
--- NOTE | 2018-03-19 12:58 | Progress Note ---
Assessment and Plan Assessment and plan: Opioid withdrawal. Continue withdrawal protocol. Dyspnea/tachypnea. Resume home medications and bronchodilators. CT of the chest negative for PE. Opioid dependence. History Interval history: No new issues overnight. Hospitalist Physical - Constitutional Vitals: Temp Pulse Resp BP Pulse Ox 99.2 F 90 20 149/78 95 03/19/18 07:44 03/19/18 09:47 03/19/18 07:44 03/19/18 09:47 03/19/18 07:44 General appearance: Present: no acute distress, well-nourished - EENT Eyes: Present: PERRL, EOM intact ENT: hearing intact, clear oral mucosa, dentition normal - Neck Neck: Present: supple, normal ROM - Respiratory Respiratory effort: normal Respiratory: bilateral: CTA - Cardiovascular Rhythm: regular Heart Sounds: Present: S1 & S2. Absent: gallop, rub - Extremities Extremities: no ischemia, No edema, Full ROM - Abdominal General gastrointestinal: soft, non-tender, non-distended, normal bowel sounds - Integumentary Integumentary: Present: clear, warm, dry - Neurologic Neurologic: CNII-XII intact, moves all extremities Results - Labs CBC & Chem 7: 03/18/18 05:15 03/18/18 05:15 Labs: Laboratory Last Values WBC 7.3 K/mm3 (4.5-11.0) 03/18/18 05:15 RBC 3.73 M/mm3 (3.65-5.03) 03/18/18 05:15 Hgb 11.1 gm/dl (10.1-14.3) 03/18/18 05:15 Hct 34.2 % (30.3-42.9) 03/18/18 05:15 MCV 92 fl (79-97) 03/18/18 05:15 MCH 30 pg (28-32) 03/18/18 05:15 MCHC 32 % (30-34) 03/18/18 05:15 RDW 16.9 % (13.2-15.2) H 03/18/18 05:15 Plt Count 207 K/mm3 (140-440) 03/18/18 05:15 Lymph % (Auto) 25.9 % (13.4-35.0) 03/18/18 05:15 [place] % (Auto) 9.7 % (0.0-7.3) H 03/18/18 05:15 Eos % (Auto) 5.7 % (0.0-4.3) H 03/18/18 05:15 Baso % (Auto) 0.5 % (0.0-1.8) 03/18/18 05:15 Lymph # 1.9 K/mm3 (1.2-5.4) 03/18/18 05:15 [place] # 0.7 K/mm3 (0.0-0.8) 03/18/18 05:15 Eos # 0.4 K/mm3 (0.0-0.4) 03/18/18 05:15 Baso # 0.0 K/mm3 (0.0-0.1) 03/18/18 05:15 Seg Neutrophils % 58.2 % (40.0-70.0) 03/18/18 05:15 Seg Neutrophils # 4.3 K/mm3 (1.8-7.7) 03/18/18 05:15 PT 13.2 Sec. (12.2-14.9) 03/16/18 20:18 INR 0.96 (0.87-1.13) 03/16/18 20:18 APTT 24.8 Sec. (24.2-36.6) 03/16/18 20:18 Sodium 148 mmol/L (137-145) H 03/18/18 05:15 Potassium 4.0 mmol/L (3.6-5.0) 03/18/18 05:15 Chloride 108.4 mmol/L (98-107) H 03/18/18 05:15 Carbon Dioxide 28 mmol/L (22-30) 03/18/18 05:15 Anion Gap 16 mmol/L 03/18/18 05:15 BUN 32 mg/dL (7-17) H 03/18/18 05:15 Creatinine 0.9 mg/dL (0.7-1.2) 03/18/18 05:15 Estimated GFR > 60 ml/min 03/18/18 05:15 BUN/Creatinine Ratio 36 % 03/18/18 05:15 Glucose 135 mg/dL (65-100) H 03/18/18 05:15 Calcium 8.7 mg/dL (8.4-10.2) 03/18/18 05:15 Total Bilirubin 0.30 mg/dL (0.1-1.2) 03/16/18 20:18 Direct Bilirubin < 0.2 mg/dL (0-0.2) 03/16/18 20:18 Indirect Bilirubin 0.1 mg/dL 03/16/18 20:18 AST 16 units/L (5-40) 03/16/18 20:18 ALT 12 units/L (7-56) 03/16/18 20:18 Alkaline Phosphatase 65 units/L (35-129) 03/16/18 20:18 Troponin T < 0.010 ng/mL (0.00-0.029) 03/16/18 20:18 NT-Pro-B Natriuret Pep 593.3 pg/mL (0-900) 03/16/18 20:18 Total Protein 6.4 g/dL (6.3-8.2) 03/16/18 20:18 Albumin 4.4 g/dL (3.9-5) 03/16/18 20:18 Albumin/Globulin Ratio 2.2 % 03/16/18 20:18 Urine Color Yellow (Yellow) 03/16/18 23:02 Urine Turbidity Clear (Clear) 03/16/18 23:02 Urine pH 5.0 (5.0-7.0) 03/16/18 23:02 Ur Specific [place] 1.039 (1.003-1.030) H 03/16/18 23:02 Urine Protein <15 mg/dl mg/dL (Negative) 03/16/18 23:02 Urine Glucose (UA) Neg mg/dL (Negative) 03/16/18 23:02 Urine Ketones Neg mg/dL (Negative) 03/16/18 23:02 Urine Blood Neg (Negative) 03/16/18 23:02 Urine Nitrite Neg (Negative) 03/16/18 23:02 Urine Bilirubin Neg (Negative) 03/16/18 23:02 Urine Urobilinogen < 2.0 mg/dL (<2.0) 03/16/18 23:02 Ur Leukocyte Esterase Neg (Negative) 03/16/18 23:02 Urine WBC (Auto) 2.0 /HPF (0.0-6.0) 03/16/18 23:02 Urine RBC (Auto) 2.0 /HPF (0.0-6.0) 03/16/18 23:02 U Epithel Cells (Auto) 1.0 /HPF (0-13.0) 03/16/18 23:02 Urine Bacteria (Auto) 1+ /HPF (Negative) 03/16/18 23:02 Urine Mucus Few /HPF 03/16/18 23:02
[2018-03-19] MEDS: PROVENTIL IH PRN ×2 (14:00→17:50)
[2018-03-19] MEDS: BUSPAR PO SCH ×2 (15:35→21:50)
[2018-03-19] MEDS: BROVANA NEBU IH SCH (20:20)
[2018-03-19] MEDS: PULMICORT IH SCH (20:20)
[2018-03-19] MEDS: VISTARIL PO PRN (21:50)
[2018-03-19] MEDS ORDERED: NON-FORMULARY (Budesonide/Formoterol Fumarate [Symbicort 160-4.5 Mcg Inhaler] 10.2 GM) IH SCH (22:00)
[2018-03-20] MEDS: LOPRESSOR PO SCH ×5 (02:11→21:08)
[2018-03-20] MEDS: SODIUM CHLORIDE FLUSH SYRINGE 10 ML IV SCH ×3 (02:11→21:11)
[2018-03-20] MEDS: BUSPAR PO SCH ×3 (09:32→21:08)
[2018-03-20] MEDS: LOVENOX SUB-Q SCH (09:33)
[2018-03-20] MEDS: FOLVITE PO SCH (09:33)
[2018-03-20] MEDS: ZOLOFT PO SCH (09:33)
[2018-03-20] MEDS: CARDIZEM CD PO SCH (09:34)
[2018-03-20] MEDS: DELTASONE PO SCH (09:35)
[2018-03-20] MEDS ORDERED: ZOLOFT PO SCH (10:00)
[2018-03-20] MEDS ORDERED: METHOTREXATE PO SCH (10:00)
[2018-03-20] MEDS: LIBRIUM PO PRN (10:21)
[2018-03-20] MEDS: SUBOXONE 2 MG-0.5 MG SL SCH ×2 (10:22→21:07)
--- NOTE | 2018-03-20 12:34 | Progress Note ---
Assessment and Plan Assessment and plan: Opioid withdrawal. Continue withdrawal protocol. COPD with chronic respiratory failure. Continue bronchodilators/nebulizer and supplemental oxygen. CT of the chest negative for PE. Rheumatoid arthritis with debility Hypertension. Continue antihypertensive medications. Opioid dependence. History Interval history: No new issues overnight. Hospitalist Physical - Constitutional Vitals: Temp Pulse Resp BP Pulse Ox 98.4 F 78 20 184/98 100 03/20/18 07:54 03/20/18 09:34 03/20/18 07:54 03/20/18 09:34 03/20/18 07:54 General appearance: Present: no acute distress, well-nourished - EENT Eyes: Present: PERRL, EOM intact ENT: hearing intact, clear oral mucosa, dentition normal - Neck Neck: Present: supple, normal ROM - Respiratory Respiratory effort: normal Respiratory: bilateral: CTA - Cardiovascular Rhythm: regular Heart Sounds: Present: S1 & S2. Absent: gallop, rub - Extremities Extremities: no ischemia, No edema, Full ROM - Abdominal General gastrointestinal: soft, non-tender, non-distended, normal bowel sounds - Integumentary Integumentary: Present: clear, warm, dry - Neurologic Neurologic: CNII-XII intact, moves all extremities Results - Labs CBC & Chem 7: 03/18/18 05:15 03/18/18 05:15 Labs: Laboratory Last Values WBC 7.3 K/mm3 (4.5-11.0) 03/18/18 05:15 RBC 3.73 M/mm3 (3.65-5.03) 03/18/18 05:15 Hgb 11.1 gm/dl (10.1-14.3) 03/18/18 05:15 Hct 34.2 % (30.3-42.9) 03/18/18 05:15 MCV 92 fl (79-97) 03/18/18 05:15 MCH 30 pg (28-32) 03/18/18 05:15 MCHC 32 % (30-34) 03/18/18 05:15 RDW 16.9 % (13.2-15.2) H 03/18/18 05:15 Plt Count 207 K/mm3 (140-440) 03/18/18 05:15 Lymph % (Auto) 25.9 % (13.4-35.0) 03/18/18 05:15 [place] % (Auto) 9.7 % (0.0-7.3) H 03/18/18 05:15 Eos % (Auto) 5.7 % (0.0-4.3) H 03/18/18 05:15 Baso % (Auto) 0.5 % (0.0-1.8) 03/18/18 05:15 Lymph # 1.9 K/mm3 (1.2-5.4) 03/18/18 05:15 [place] # 0.7 K/mm3 (0.0-0.8) 03/18/18 05:15 Eos # 0.4 K/mm3 (0.0-0.4) 03/18/18 05:15 Baso # 0.0 K/mm3 (0.0-0.1) 03/18/18 05:15 Seg Neutrophils % 58.2 % (40.0-70.0) 03/18/18 05:15 Seg Neutrophils # 4.3 K/mm3 (1.8-7.7) 03/18/18 05:15 PT 13.2 Sec. (12.2-14.9) 03/16/18 20:18 INR 0.96 (0.87-1.13) 03/16/18 20:18 APTT 24.8 Sec. (24.2-36.6) 03/16/18 20:18 Sodium 148 mmol/L (137-145) H 03/18/18 05:15 Potassium 4.0 mmol/L (3.6-5.0) 03/18/18 05:15 Chloride 108.4 mmol/L (98-107) H 03/18/18 05:15 Carbon Dioxide 28 mmol/L (22-30) 03/18/18 05:15 Anion Gap 16 mmol/L 03/18/18 05:15 BUN 32 mg/dL (7-17) H 03/18/18 05:15 Creatinine 0.9 mg/dL (0.7-1.2) 03/18/18 05:15 Estimated GFR > 60 ml/min 03/18/18 05:15 BUN/Creatinine Ratio 36 % 03/18/18 05:15 Glucose 135 mg/dL (65-100) H 03/18/18 05:15 Calcium 8.7 mg/dL (8.4-10.2) 03/18/18 05:15 Total Bilirubin 0.30 mg/dL (0.1-1.2) 03/16/18 20:18 Direct Bilirubin < 0.2 mg/dL (0-0.2) 03/16/18 20:18 Indirect Bilirubin 0.1 mg/dL 03/16/18 20:18 AST 16 units/L (5-40) 03/16/18 20:18 ALT 12 units/L (7-56) 03/16/18 20:18 Alkaline Phosphatase 65 units/L (35-129) 03/16/18 20:18 Troponin T < 0.010 ng/mL (0.00-0.029) 03/16/18 20:18 NT-Pro-B Natriuret Pep 593.3 pg/mL (0-900) 03/16/18 20:18 Total Protein 6.4 g/dL (6.3-8.2) 03/16/18 20:18 Albumin 4.4 g/dL (3.9-5) 03/16/18 20:18 Albumin/Globulin Ratio 2.2 % 03/16/18 20:18 Urine Color Yellow (Yellow) 03/16/18 23:02 Urine Turbidity Clear (Clear) 03/16/18 23:02 Urine pH 5.0 (5.0-7.0) 03/16/18 23:02 Ur Specific [place] 1.039 (1.003-1.030) H 03/16/18 23:02 Urine Protein <15 mg/dl mg/dL (Negative) 03/16/18 23:02 Urine Glucose (UA) Neg mg/dL (Negative) 03/16/18 23:02 Urine Ketones Neg mg/dL (Negative) 03/16/18 23:02 Urine Blood Neg (Negative) 03/16/18 23:02 Urine Nitrite Neg (Negative) 03/16/18 23:02 Urine Bilirubin Neg (Negative) 03/16/18 23:02 Urine Urobilinogen < 2.0 mg/dL (<2.0) 03/16/18 23:02 Ur Leukocyte Esterase Neg (Negative) 03/16/18 23:02 Urine WBC (Auto) 2.0 /HPF (0.0-6.0) 03/16/18 23:02 Urine RBC (Auto) 2.0 /HPF (0.0-6.0) 03/16/18 23:02 U Epithel Cells (Auto) 1.0 /HPF (0-13.0) 03/16/18 23:02 Urine Bacteria (Auto) 1+ /HPF (Negative) 03/16/18 23:02 Urine Mucus Few /HPF 03/16/18 23:02
[2018-03-20] MEDS: AMBIEN PO PRN (21:07)
[2018-03-20] MEDS: PULMICORT IH SCH ×2 (21:53→22:00)
[2018-03-20] MEDS: BROVANA NEBU IH SCH ×2 (21:53→22:00)
[2018-03-21] MEDS: BUSPAR PO SCH ×3 (08:17→21:45)
[2018-03-21] MEDS: BROVANA NEBU IH SCH ×2 (08:41→20:03)
[2018-03-21] MEDS: PULMICORT IH SCH ×2 (08:41→20:02)
--- NOTE | 2018-03-21 09:31 | Discharge Summary ---
Providers - Providers Date of Admission: 03/17/18 09:55 Date of discharge: 03/21/18 Attending physician: SANTOSH TRUJILLO Primary care physician: MICHAEL VALDERRAMA Hospitalization Reason for admission: opioid withdrawal Condition: Stable Hospital course: Patient is 67 years old female with severe history of rheumatoid arthritis, opioid dependence. Patient was recently discharged from the hospital for opioid withdrawal. Patient presented to the emergency room via EMS complaining of palpitation, nausea, vomiting and generalized body pain. Patient was tachypneic with watery eyes. Patient with significant shaking. Patient stated that she was using oxycodone for the last 6 year and she stopped taking it one month ago. Patient was admitted for opioid withdrawal. Patient underwent appropriate opioid withdrawal protocol with Suboxone taper. Patient had slow but significant improvement throughout hospitalization. Patient is felt to have received maximal hospital benefit and will be discharged home. The patient has been set up for outpatient Suboxone clinic after discharge. Dedicated discharge time 32 minutes. Disposition: TO HOME OR SELFCARE Core Measure Documentation - Palliative Care Palliative Care/ Comfort Measures: Not Applicable - Core Measures Any of the following diagnoses?: none Exam - Constitutional Vitals: Temp Pulse Resp BP Pulse Ox 97.8 F 70 20 147/74 99 03/21/18 07:23 03/21/18 08:41 03/21/18 08:41 03/21/18 07:23 03/21/18 08:45 General appearance: Present: no acute distress, well-nourished - EENT Eyes: Present: PERRL ENT: hearing intact, clear oral mucosa - Neck Neck: Present: supple, normal ROM - Respiratory Respiratory effort: normal Respiratory: bilateral: CTA - Cardiovascular Heart Sounds: Present: S1 & S2. Absent: rub, click - Extremities Extremities: pulses symmetrical, No edema Peripheral Pulses: within normal limits - Abdominal General gastrointestinal: Present: soft, non-tender, non-distended, normal bowel sounds Female genitourinary: Present: normal - Integumentary Integumentary: Present: clear, warm, dry - Musculoskeletal Musculoskeletal: gait normal, strength equal bilaterally - Psychiatric Psychiatric: appropriate mood/affect, intact judgment & insight - Neurologic Neurologic: CNII-XII intact, moves all extremities Plan Activity: no restrictions Weight Bearing Status: Full Weight Bearing Diet: regular Follow up with: MICHAEL VALDERRAMA MD [Primary Care Provider] - 3-5 Days Prescriptions: Budesonide/Formoterol Fumarate [Symbicort 160-4.5 Mcg Inhaler] 10.2 gm IH BID 30 Days hfa.aer.[id number] cloNIDine-TTS PATCH [Catapres-Tts Patch] 0.2 mg TD Sa #10 patch dilTIAZem CD [Cardizem CD] 240 mg PO QDAY #30 capsule Folic Acid [Folvite] 1 mg PO QDAY #30 tablet hydrOXYzine PAMOATE [Vistaril] 50 mg PO Q6H PRN #90 capsule PRN Reason: Anxiety Mild Metoprolol [Lopressor TAB] 25 mg PO BID #60 tablet
[2018-03-21] MEDS: LOPRESSOR PO SCH ×4 (09:44→21:46)
[2018-03-21] MEDS: CARDIZEM CD PO SCH (09:45)
[2018-03-21] MEDS: ZOLOFT PO SCH (09:45)
[2018-03-21] MEDS: DELTASONE PO SCH (09:45)
[2018-03-21] MEDS: FOLVITE PO SCH (09:55)
[2018-03-21] MEDS: LOVENOX SUB-Q SCH (09:56)
[2018-03-21] MEDS: SODIUM CHLORIDE FLUSH SYRINGE 10 ML IV SCH ×2 (09:56→21:46)
[2018-03-21] MEDS ORDERED: CATAPRES-TTS PATCH TD SCH (10:00)
[2018-03-21] MEDS ORDERED: LASIX PO ONE (12:00)
[2018-03-22] MEDS: PULMICORT IH SCH (08:30)
[2018-03-22] MEDS: BROVANA NEBU IH SCH (08:30)
[2018-03-22] MEDS: BUSPAR PO SCH ×3 (08:53→20:12)
[2018-03-22] MEDS: DELTASONE PO SCH (09:40)
[2018-03-22] MEDS: ZOLOFT PO SCH (09:40)
[2018-03-22] MEDS: FOLVITE PO SCH (09:40)
[2018-03-22] MEDS: CARDIZEM CD PO SCH (09:40)
[2018-03-22] MEDS: LOPRESSOR PO SCH ×4 (09:40→22:05)
[2018-03-22] MEDS: SODIUM CHLORIDE FLUSH SYRINGE 10 ML IV SCH ×2 (09:41→22:06)
[2018-03-22] MEDS: LOVENOX SUB-Q SCH (09:41)
--- NOTE | 2018-03-22 12:06 | Progress Note ---
Assessment and Plan Assessment and plan: Opioid withdrawal. Continue withdrawal protocol. COPD with chronic respiratory failure. Continue bronchodilators/nebulizer and supplemental oxygen. CT of the chest negative for PE. Rheumatoid arthritis with debility Hypertension. Continue antihypertensive medications. Opioid dependence. Disposition. Patient appealed her discharge. Await case management follow-up. History Interval history: No new issues overnight. Hospitalist Physical - Constitutional Vitals: Temp Pulse Resp BP Pulse Ox 98.0 F 65 20 148/72 97 03/22/18 11:27 03/22/18 11:27 03/22/18 11:27 03/22/18 11:27 03/22/18 11:27 General appearance: Present: no acute distress, well-nourished - EENT Eyes: Present: PERRL, EOM intact ENT: hearing intact, clear oral mucosa, dentition normal - Neck Neck: Present: supple, normal ROM - Respiratory Respiratory effort: normal Respiratory: bilateral: CTA - Cardiovascular Rhythm: regular Heart Sounds: Present: S1 & S2. Absent: gallop, rub - Extremities Extremities: no ischemia, No edema, Full ROM - Abdominal General gastrointestinal: soft, non-tender, non-distended, normal bowel sounds - Integumentary Integumentary: Present: clear, warm, dry - Neurologic Neurologic: CNII-XII intact, moves all extremities Results - Labs CBC & Chem 7: 03/18/18 05:15 03/18/18 05:15 Labs: Laboratory Last Values WBC 7.3 K/mm3 (4.5-11.0) 03/18/18 05:15 RBC 3.73 M/mm3 (3.65-5.03) 03/18/18 05:15 Hgb 11.1 gm/dl (10.1-14.3) 03/18/18 05:15 Hct 34.2 % (30.3-42.9) 03/18/18 05:15 MCV 92 fl (79-97) 03/18/18 05:15 MCH 30 pg (28-32) 03/18/18 05:15 MCHC 32 % (30-34) 03/18/18 05:15 RDW 16.9 % (13.2-15.2) H 03/18/18 05:15 Plt Count 207 K/mm3 (140-440) 03/18/18 05:15 Lymph % (Auto) 25.9 % (13.4-35.0) 03/18/18 05:15 [place] % (Auto) 9.7 % (0.0-7.3) H 03/18/18 05:15 Eos % (Auto) 5.7 % (0.0-4.3) H 03/18/18 05:15 Baso % (Auto) 0.5 % (0.0-1.8) 03/18/18 05:15 Lymph # 1.9 K/mm3 (1.2-5.4) 03/18/18 05:15 [place] # 0.7 K/mm3 (0.0-0.8) 03/18/18 05:15 Eos # 0.4 K/mm3 (0.0-0.4) 03/18/18 05:15 Baso # 0.0 K/mm3 (0.0-0.1) 03/18/18 05:15 Seg Neutrophils % 58.2 % (40.0-70.0) 03/18/18 05:15 Seg Neutrophils # 4.3 K/mm3 (1.8-7.7) 03/18/18 05:15 PT 13.2 Sec. (12.2-14.9) 03/16/18 20:18 INR 0.96 (0.87-1.13) 03/16/18 20:18 APTT 24.8 Sec. (24.2-36.6) 03/16/18 20:18 Sodium 148 mmol/L (137-145) H 03/18/18 05:15 Potassium 4.0 mmol/L (3.6-5.0) 03/18/18 05:15 Chloride 108.4 mmol/L (98-107) H 03/18/18 05:15 Carbon Dioxide 28 mmol/L (22-30) 03/18/18 05:15 Anion Gap 16 mmol/L 03/18/18 05:15 BUN 32 mg/dL (7-17) H 03/18/18 05:15 Creatinine 0.9 mg/dL (0.7-1.2) 03/18/18 05:15 Estimated GFR > 60 ml/min 03/18/18 05:15 BUN/Creatinine Ratio 36 % 03/18/18 05:15 Glucose 135 mg/dL (65-100) H 03/18/18 05:15 Calcium 8.7 mg/dL (8.4-10.2) 03/18/18 05:15 Total Bilirubin 0.30 mg/dL (0.1-1.2) 03/16/18 20:18 Direct Bilirubin < 0.2 mg/dL (0-0.2) 03/16/18 20:18 Indirect Bilirubin 0.1 mg/dL 03/16/18 20:18 AST 16 units/L (5-40) 03/16/18 20:18 ALT 12 units/L (7-56) 03/16/18 20:18 Alkaline Phosphatase 65 units/L (35-129) 03/16/18 20:18 Troponin T < 0.010 ng/mL (0.00-0.029) 03/16/18 20:18 NT-Pro-B Natriuret Pep 593.3 pg/mL (0-900) 03/16/18 20:18 Total Protein 6.4 g/dL (6.3-8.2) 03/16/18 20:18 Albumin 4.4 g/dL (3.9-5) 03/16/18 20:18 Albumin/Globulin Ratio 2.2 % 03/16/18 20:18 Urine Color Yellow (Yellow) 03/16/18 23:02 Urine Turbidity Clear (Clear) 03/16/18 23:02 Urine pH 5.0 (5.0-7.0) 03/16/18 23:02 Ur Specific [place] 1.039 (1.003-1.030) H 03/16/18 23:02 Urine Protein <15 mg/dl mg/dL (Negative) 03/16/18 23:02 Urine Glucose (UA) Neg mg/dL (Negative) 03/16/18 23:02 Urine Ketones Neg mg/dL (Negative) 03/16/18 23:02 Urine Blood Neg (Negative) 03/16/18 23:02 Urine Nitrite Neg (Negative) 03/16/18 23:02 Urine Bilirubin Neg (Negative) 03/16/18 23:02 Urine Urobilinogen < 2.0 mg/dL (<2.0) 03/16/18 23:02 Ur Leukocyte Esterase Neg (Negative) 03/16/18 23:02 Urine WBC (Auto) 2.0 /HPF (0.0-6.0) 03/16/18 23:02 Urine RBC (Auto) 2.0 /HPF (0.0-6.0) 03/16/18 23:02 U Epithel Cells (Auto) 1.0 /HPF (0-13.0) 03/16/18 23:02 Urine Bacteria (Auto) 1+ /HPF (Negative) 03/16/18 23:02 Urine Mucus Few /HPF 03/16/18 23:02
[2018-03-22] MEDS: VISTARIL PO PRN (15:27)
[2018-03-22] MEDS: ROBITUSSIN PO PRN (19:51)
[2018-03-22] MEDS: LIBRIUM PO PRN (22:04)
[2018-03-23] MEDS: ROBITUSSIN PO PRN ×2 (06:39→16:38)
[2018-03-23] MEDS: BUSPAR PO SCH ×2 (08:50→14:33)
[2018-03-23] MEDS: BROVANA NEBU IH SCH ×2 (08:56→09:01)
[2018-03-23] MEDS: PULMICORT IH SCH ×2 (08:56→09:01)
[2018-03-23] MEDS: DELTASONE PO SCH (10:17)
[2018-03-23] MEDS: LOVENOX SUB-Q SCH (10:17)
[2018-03-23] MEDS: FOLVITE PO SCH (10:17)
[2018-03-23] MEDS: ZOLOFT PO SCH (10:17)
[2018-03-23] MEDS: CARDIZEM CD PO SCH (10:18)
[2018-03-23] MEDS: LOPRESSOR PO SCH ×2 (10:18)
[2018-03-23] MEDS: SODIUM CHLORIDE FLUSH SYRINGE 10 ML IV SCH (10:19)
[2018-03-23] MEDS: PROVENTIL IH PRN (14:48)
[2018-03-23] MEDS: LIBRIUM PO PRN (18:05)
[2018-03-23 18:29] VITALS: BP 140/77
== END 2018-03-23 19:05 | disposition home or self-care (01) | DRG 897 ==
LOC: ED 19:37 → 3A 03-17 09:22 → UNDOADMIN 03-17 09:22 → MSU 03-17 09:55
PROVIDERS: ADMIT Internal Medicine; ATTEND Hospitalist
DX: F11.23 Opioid dependence with withdrawal (principal); J96.10 Chronic respiratory failure, unspecified whether with hypoxia or hypercapnia; J44.9 Chronic obstructive pulmonary disease, unspecified; M06.9 Rheumatoid arthritis, unspecified; R53.81 Other malaise; I11.0 Hypertensive heart disease with heart failure; I50.9 Heart failure, unspecified; K21.9 Gastro-esophageal reflux disease without esophagitis; G89.29 Other chronic pain; M54.9 Dorsalgia, unspecified; Z79.899 Other long term (current) drug therapy
CPT/HCPCS: 36415; 71045; 71275; 80048; 80076; 81001; 83880; 84484; 85025; 85610; 85730; 87116; 93005; 93010; 94640; 94760; 96361; 96374; 96375; G0378; J1650; J2060; J2270; J2405; J3411; J7030; J7512; J8610; Q0177; Q9967

== ENCOUNTER 2018-03-29 18:12 | Emergency (ER) | payer MEDICARE ==
--- NOTE | 2018-03-29 18:40 | Emergency Department Report ---
ED Medical Clearance HPI - General Stated complaint: DT/OXYCODONE WITHDRAWAL Time Seen by Provider: 03/29/18 18:37 Source: patient, EMS Mode of arrival: Ambulatory Limitations: No Limitations - History of Present Illness Initial comments: He is a 67-year-old female presents emergency room for detox. Patient states she called ambulance to bring her to the ER for medical clearance to go back [facility]. Patient states she was here not too long ago for opiate addiction. Patient denies chest pain shortness of breath. Patient states she is withdrawing now and feels shaky with nausea and vomiting. She states the last time she has used any form of Suboxone or oxycodone was a week and a half ago Complaint: medical clearance request -: Sudden Reason for Medical Clearance: other (detox) Place: home Alledged Intoxication: No Compliant with Home Medications: Yes Associated Symptoms: nausea/vomiting. denies: chest pain, shortness of breath, palpitations, diaphoresis, confusion, cough, fever/chills, headaches, anorexia, malaise, rash, seizure, syncope, weakness Treatments Prior to Arrival: none Home medications: Previous Rx's Medication Instructions Recorded Last Taken Type ALBUTEROL NEB's [Proventil 0.083% 2.5 mg IH Q4HRT PRN #30 nebu 03/05/18 Unknown Rx NEBS] Sertraline [Zoloft] 100 mg PO QDAY #30 tablet 03/05/18 Unknown Rx busPIRone [Buspar] 7.5 mg PO TID #90 tablet 03/05/18 Unknown Rx metHOTREXate(DOSE WEEKLY ONLY) 7.5 mg PO Fr@1000 #4 tablet 03/05/18 Unknown Rx [metHOTREXate (DOSE WEEKLY ONLY)] predniSONE [Prednisone] 50 mg PO DAILY #7 tablet 03/05/18 Unknown Rx Arformoterol Nebu [Brovana Nebu] 15 mcg IH Q12HRT ml 03/21/18 Unknown Rx Budesonide [Pulmicort Respules] 1 mg IH Q12HRT nebu 03/21/18 Unknown Rx Budesonide/Formoterol Fumarate 10.2 gm IH BID 30 Days hfa.aer.ad 03/21/18 Un known Rx [Symbicort 160-4.5 Mcg Inhaler] Folic Acid [Folvite] 1 mg PO QDAY #30 tablet 03/21/18 Unknown Rx Metoprolol [Lopressor TAB] 25 mg PO BID tablet 03/21/18 Unknown Rx Metoprolol [Lopressor TAB] 25 mg PO BID #60 tablet 03/21/18 Unknown Rx Sertraline [Zoloft] 100 mg PO DAILY tablet 03/21/18 Unknown Rx cloNIDine-TTS PATCH [Catapres-Tts 0.2 mg TD Sa #10 patch 03/21/18 Unknown Rx Patch] dilTIAZem CD [Cardizem CD] 240 mg PO QDAY #30 capsule 03/21/18 Unknown Rx hydrOXYzine PAMOATE [Vistaril] 50 mg PO Q6H PRN #90 capsule 03/21/18 Unknown Rx predniSONE [Deltasone] 50 mg PO DAILY tablet 03/21/18 Unknown Rx Allergies/Adverse reactions: Allergies Allergy/AdvReac Type Severity Reaction Status Date / Time No Known Allergies Allergy Unverified 01/26/18 13:56 ED Review of Systems ROS: Stated complaint: DT/OXYCODONE WITHDRAWAL Other details as noted in HPI Constitutional: denies: chills, fever Eyes: denies: eye pain, eye discharge, vision change ENT: denies: ear pain, throat pain Respiratory: denies: cough, shortness of breath, wheezing Cardiovascular: denies: chest pain, palpitations Endocrine: no symptoms reported Gastrointestinal: nausea, vomiting. denies: abdominal pain, diarrhea Genitourinary: denies: urgency, dysuria, discharge Musculoskeletal: denies: back pain, joint swelling, arthralgia Skin: denies: rash, lesions Neurological: denies: headache, weakness, paresthesias Psychiatric: anxiety. denies: depression, auditory hallucinations, visual hallucinations, homicidal thoughts, suicidal thoughts Hematological/Lymphatic: denies: easy bleeding, easy bruising ED Past Medical Hx - Past Medical History Previous Medical History?: Yes Hx Hypertension: Yes Hx Heart Attack/AMI: No Hx Congestive Heart Failure: Yes Hx Deep Vein Thrombosis: No Hx Pulmonary Embolism: No Hx GERD: Yes Hx Arthritis: Yes Hx Asthma: No Hx COPD: Yes Hx Tuberculosis: No Additional medical history: chronic back pain - Surgical History Past Surgical History?: Yes Hx Coronary Stent: No Hx Pacemaker: No Hx Internal Defibrillator: No Additional Surgical History: hernia repair and lower back/ cycst removal - Family History Family history: no significant - Social History Smoking Status: Former Smoker Substance Use Type: None - Medications Home Medications: Home Medications Medication Instructions Recorded Confirmed Last Taken Type ALBUTEROL NEB's [Proventil 0.083% 2.5 mg IH Q4HRT PRN #30 nebu 03/05/18 03/17/18 Unknown Rx NEBS] Sertraline [Zoloft] 100 mg PO QDAY #30 tablet 03/05/18 03/17/18 Unknown Rx busPIRone [Buspar] 7.5 mg PO TID #90 tablet 03/05/18 03/17/18 Unknown Rx metHOTREXate(DOSE WEEKLY ONLY) 7.5 mg PO Fr@1000 #4 tablet 03/05/18 03/17/18 Unknown Rx [metHOTREXate (DOSE WEEKLY ONLY)] predniSONE [Prednisone] 50 mg PO DAILY #7 tablet 03/05/18 03/17/18 Unknown Rx Arformoterol Nebu [Brovana Nebu] 15 mcg IH Q12HRT ml 03/21/18 Unknown Rx Budesonide [Pulmicort Respules] 1 mg IH Q12HRT nebu 03/21/18 Unknown Rx Budesonide/Formoterol Fumarate 10.2 gm IH BID 30 Days hfa.aer.ad 03/21/18 Unknown Rx [Symbicort 160-4.5 Mcg Inhaler] Folic Acid [Folvite] 1 mg PO QDAY #30 tablet 03/21/18 Unknown Rx Metoprolol [Lopressor TAB] 25 mg PO BID tablet 03/21/18 Unknown Rx Metoprolol [Lopressor TAB] 25 mg PO BID #60 tablet 03/21/18 Unknown Rx Sertraline [Zoloft] 100 mg PO DAILY tablet 03/21/18 Unknown Rx cloNIDine-TTS PATCH [Catapres-Tts 0.2 mg TD Sa #10 patch 03/21/18 Unknown Rx Patch] dilTIAZem CD [Cardizem CD] 240 mg PO QDAY #30 capsule 03/21/18 Unknown Rx hydrOXYzine PAMOATE [Vistaril] 50 mg PO Q6H PRN #90 capsule 03/21/18 Unknown Rx predniSONE [Deltasone] 50 mg PO DAILY tablet 03/21/18 Unknown Rx ED Physical Exam - General Limitations: No Limitations General appearance: alert, in no apparent distress - Head Head exam: Present: atraumatic, normocephalic - Eye Eye exam: Present: normal appearance - ENT ENT exam: Present: mucous membranes moist - Neck Neck exam: Present: normal inspection - Respiratory Respiratory exam: Present: normal lung sounds bilaterally. Absent: respiratory distress - Cardiovascular Cardiovascular Exam: Present: regular rate, normal rhythm. Absent: systolic murmur, diastolic murmur, rubs, gallop - GI/Abdominal GI/Abdominal exam: Present: soft, normal bowel sounds - Extremities Exam Extremities exam: Present: normal inspection - Back Exam Back exam: Present: normal inspection - Neurological Exam Neurological exam: Present: alert, oriented X3 - Psychiatric Psychiatric exam: Present: anxious - Skin Skin exam: Present: warm, dry, intact, normal color. Absent: rash ED Course Vital Signs 03/29/18 03/29/18 03/30/18 18:54 23:05 00:57 Temperature 98.8 F 98.8 F 98.4 F Pulse Rate 64 72 72 Respiratory 16 16 Rate Blood Pressure 175/138 Blood Pressure 135/76 124/72 [Left] O2 Sat by Pulse 100 98 98 Oximetry 03/30/18 01:23 Temperature 98.4 F Pulse Rate 78 Respiratory 14 Rate Blood Pressure Blood Pressure 123/71 [Left] O2 Sat by Pulse 98 Oximetry - Reevaluation(s) Reevaluation #1: Patient is complaining of feeling anxious. Patient is also complaining of nausea. Patient was given Zofran and Ativan. 03/29/18 19:51 Patient states her symptoms have improved. Patient states she feels less anxious. Patient's nausea has resolved 03/29/18 21:12 Patient tolerating intake by mouth. Patient resting. Patient denies anxiety. Patient denies nausea vomiting. Discussed all results with patient. Patient is medically cleared at this time. 03/29/18 22:55 Patient is resting. Patient denies anxiety. Patient denies symptoms. Patient will be discharged and prepared for admission into the [facility]. Mental health has assessed patient and placed a consult for [facility]. Discussed all results with patient. Patient is medically clear. 03/30/18 00:58 ED Medical Decision Making - Lab Data Result diagrams: 03/29/18 18:52 03/29/18 18:52 - Medical Decision Making Patient is 67-year-old female that presents emergency room with detox from oxycodone and opiates. Patient was recently in the [facility] here at the hospital and would like to be readmitted there. Patient has been assessed by mental health. Patient is stable for admission to detox program. Patient will be discharged and await admission by the [facility] flare breaker. Patient given discharge instructions. Patient will stay in the emergency room until assessed by detox program flare breaker. - Differential Diagnosis detox. Anxiety. ED Disposition Clinical Impression: Anxiety, Withdrawal from opioids HTN (hypertension) Qualifiers: Hypertension type: essential hypertension Qualified Code(s): I10 - Essential (primary) hypertension Disposition: TO HOME OR SELFCARE Is pt being admited?: No Does the pt Need Aspirin: No Condition: Stable Instructions: Narcotic Abuse (ED), Hypertension (ED) Additional Instructions: She develop primary care in 2-3 days. Patient to be discharged from the ER and be immediately admitted into the [facility] detox program in the morning. Patient to return to ER if condition worsens. Patient to increase water. Patient to rest. Referrals: ISRA HERNANDEZ [Primary Care Provider] - 2-3 Days Time of Disposition: 01:04
[2018-03-29 19:06] LABS: Basophils % (Auto) 0.4 % (0.0-1.8); Eosinophils % (Auto) 0.4 % (0.0-4.3); Hematocrit 43.7 % (30.3-42.9); Hemoglobin 14.4 gm/dl (10.1-14.3); Lymphocytes # (Auto) 0.9 K/mm3 (1.2-5.4); Lymphocytes % (Auto) 9.4 % (13.4-35.0); Mean Corpuscular HGB Conc 33 % (30-34); Mean Corpuscular Volume 89 fl (79-97); Monocytes # (Auto) 0.1 K/mm3 (0.0-0.8); Platelet Count 262 K/mm3 (140-440); Red Blood Count 4.89 M/mm3 (3.65-5.03); Red Cell Distribution Width 16.9 % (13.2-15.2)
[2018-03-29 19:07] LABS: Bilirubin,Urine NEG (Negative); Blood,Urine NEG (Negative); Color,Urine Yellow (Yellow); Mucus,Urine FEW /HPF; Urobilinogen,Urine < 2.0 mg/dL (<2.0)
[2018-03-29 19:11] LABS: RBC,Urine < 1.0 /HPF (0.0-6.0)
[2018-03-29 19:18] LABS: Alanine Aminotransferase 11 units/L (7-56); Albumin 4.5 g/dL (3.9-5); BUN/Creatinine Ratio 16; Blood Urea Nitrogen 16 mg/dL (7-17); Calcium 9.8 mg/dL (8.4-10.2); Hemolysis Index 15
[2018-03-29 19:20] LABS: Amphetamine Screen,Urine PRESUMPTIVE NEGATIVE; Cannabinoid Screen,Urine PRESUMPTIVE NEGATIVE; Cocaine Screen,Urine PRESUMPTIVE NEGATIVE; Methadone Screen,Urine PRESUMPTIVE NEGATIVE; Opiate Screen,Urine PRESUMPTIVE NEGATIVE
[2018-03-29 19:45] LABS: Benzodiazepines Screen,Urine PRESUMPTIVE POSITIVE
[2018-03-29] MEDS ORDERED: ZOFRAN ONE (20:07)
[2018-03-29] MEDS ORDERED: ATIVAN ONE (20:07)
[2018-03-29] MEDS ORDERED: ATIVAN IV ONE (20:54)
[2018-03-29] MEDS ORDERED: ZOFRAN IV ONE (20:55)
[2018-03-30 01:24] VITALS: BP 123/71
[2018-03-30] MEDS ORDERED: TYLENOL PO ONE (05:10)
[2018-03-30] MEDS ORDERED: ZOFRAN ODT PO ONE (05:11)
== END 2018-03-30 09:30 | disposition home or self-care (01) ==
LOC: ED 18:12
DX: F41.9 Anxiety disorder, unspecified (principal); F11.23 Opioid dependence with withdrawal; I11.0 Hypertensive heart disease with heart failure; K21.9 Gastro-esophageal reflux disease without esophagitis; J44.9 Chronic obstructive pulmonary disease, unspecified; M19.90 Unspecified osteoarthritis, unspecified site; M54.9 Dorsalgia, unspecified; G89.29 Other chronic pain; R11.2 Nausea with vomiting, unspecified; Z87.891 Personal history of nicotine dependence
CPT/HCPCS: 36415; 80053; 80307; 81001; 85025; 96374; 96375; 99284; G0480; J2060; J2405; 80320; Q0162

== ENCOUNTER 2018-05-22 09:27 | Inpatient (IN) | payer MEDICARE ==
--- NOTE | 2018-05-22 10:48 | Emergency Department Report ---
ED Chest Pain HPI - General Chief Complaint: Dyspnea/Respdistress Stated Complaint: BODY PAIN/OUT OF MEDS Time Seen by Provider: 05/22/18 10:22 Source: patient, EMS Mode of arrival: Stretcher Limitations: No Limitations - History of Present Illness Initial Comments: 67-year-old female with history of COPD and CHF presents to ED with complaint of chest pain and shortness of breath since last night. Patient also complaining of anxiety, states she took Buspar last night at the onset of her symptoms. Patient states chest pain is left-sided, nonradiating, worse with movement. Patient reports swelling and see if she stands up for a long period of time. Patient is on 2 L O2 at home, states she increased to 3 L. Patient currently on 2 L O2 here in ED, no respiratory distress, normal O2 sats. Patient reports she has an appointment with her PCP on tomorrow. Patient currently requesting something for anxiety. PCP: Dr Dominguez Cardiology: Dr Naveen HAUSER Complaint: chest pain -: Last night Onset: during rest Pain Location: left chest Pain Radiation: none Severity: moderate Severity scale (0 -10): 10 Quality: sharp Consistency: constant Improves With: nothing Worsens With: movement re: dyspnea. denies: nausea, vomting, diaphoresis Treatments Prior to Arrival: other (buspar) - Related Data Home Medications Medication Instructions Recorded Confirmed Last Taken Albuterol Sulfate [Ventolin Hfa] 2 puff IH Q4H 05/22/18 05/22/18 Unknown Amlodipine Besylate [Norvasc] 10 mg PO DAILY 05/22/18 05/22/18 Unknown Buprenorphine HCl/Naloxone HCl 1 film SL DAILY 05/22/18 05/22/18 Unknown [Suboxone 8 mg-2 mg SL Film] Diltiazem HCl [Diltiazem ER] 240 mg PO DAILY 05/22/18 05/22/18 Unknown Folic Acid [Folvite] 1 mg PO DAILY 05/22/18 05/22/18 Unknown LORazepam [Ativan] 1 mg PO TID 05/22/18 05/22/18 05/22/18 Sertraline [Zoloft] 100 mg PO DAILY 05/22/18 05/22/18 Unknown cloNIDine-TTS PATCH [Catapres-Tts 0.2 mg TD QWEEK 05/22/18 05/22/18 Unknown Patch] oxyCODONE 20 mg PO Q6HR PRN 05/22/18 05/22/18 05/15/18 traZODone [Desyrel] 50 mg PO DAILY 05/22/18 05/22/18 Unknown Previous Rx's Medication Instructions Recorded Last Taken Type ALBUTEROL NEB's [Proventil 0.083% 2.5 mg IH Q4HRT PRN #30 nebu 03/05/18 Unknown Rx NEBS] predniSONE [Prednisone] 50 mg PO DAILY #7 tablet 03/05/18 Unknown Rx Metoprolol [Lopressor TAB] 25 mg PO BID tablet 03/21/18 Unknown Rx hydrOXYzine PAMOATE [Vistaril] 50 mg PO Q6H PRN #90 capsule 03/21/18 Unknown Rx Allergies Allergy/AdvReac Type Severity Reaction Status Date / Time No Known Allergies Allergy Verified 05/22/18 09:54 Heart Score - HEART Score History: Slightly suspicious EKG: Non-specific Age: > 65 Risk factors: 1-2 risk factors Troponin: < normal limit HEART Score: 4 ED Review of Systems ROS: Stated complaint: BODY PAIN/OUT OF MEDS Other details as noted in HPI Comment: All other systems reviewed and negative Constitutional: denies: chills, fever Respiratory: shortness of breath. denies: cough Cardiovascular: chest pain Gastrointestinal: denies: nausea Psychiatric: anxiety ED Past Medical Hx - Past Medical History Hx Hypertension: Yes Hx Heart Attack/AMI: No Hx Congestive Heart Failure: Yes Hx Deep Vein Thrombosis: No Hx Pulmonary Embolism: No Hx GERD: Yes Hx Arthritis: Yes Hx Asthma: No Hx COPD: Yes Hx Tuberculosis: No Additional medical history: chronic back pain - Surgical History Hx Coronary Stent: No Hx Pacemaker: No Hx Internal Defibrillator: No Additional Surgical History: hernia repair and lower back/ cycst removal - Social History Smoking Status: Former Smoker Substance Use Type: None - Medications Home Medications: Home Medications Medication Instructions Recorded Confirmed Last Taken Type ALBUTEROL NEB's [Proventil 0.083% 2.5 mg IH Q4HRT PRN #30 nebu 03/05/18 05/22/18 Unknown Rx NEBS] predniSONE [Prednisone] 50 mg PO DAILY #7 tablet 03/05/18 05/22/18 Unknown Rx Metoprolol [Lopressor TAB] 25 mg PO BID tablet 03/21/18 05/22/18 Unknown Rx hydrOXYzine PAMOATE [Vistaril] 50 mg PO Q6H PRN #90 capsule 03/21/18 05/22/18 Unknown Rx Albuterol Sulfate [Ventolin Hfa] 2 puff IH Q4H 05/22/18 05/22/18 Unknown History Amlodipine Besylate [Norvasc] 10 mg PO DAILY 05/22/18 05/22/18 Unknown History Buprenorphine HCl/Naloxone HCl 1 film SL DAILY 05/22/18 05/22/18 Unknown History [Suboxone 8 mg-2 mg SL Film] Diltiazem HCl [Diltiazem ER] 240 mg PO DAILY 05/22/18 05/22/18 Unknown History Folic Acid [Folvite] 1 mg PO DAILY 05/22/18 05/22/18 Unknown History LORazepam [Ativan] 1 mg PO TID 05/22/18 05/22/18 05/22/18 History Sertraline [Zoloft] 100 mg PO DAILY 05/22/18 05/22/18 Unknown History cloNIDine-TTS PATCH [Catapres-Tts 0.2 mg TD QWEEK 05/22/18 05/22/18 Unknown History Patch] oxyCODONE 20 mg PO Q6HR PRN 05/22/18 05/22/18 05/15/18 History traZODone [Desyrel] 50 mg PO DAILY 05/22/18 05/22/18 Unknown History ED Physical Exam - General Limitations: No Limitations General appearance: alert, in no apparent distress - Head Head exam: Present: atraumatic, normocephalic - Eye Eye exam: Present: normal appearance - ENT ENT exam: Present: mucous membranes moist - Neck Neck exam: Present: normal inspection - Respiratory Respiratory exam: Present: normal lung sounds bilaterally, other (speaking in complete sentences). Absent: respiratory distress - Cardiovascular Cardiovascular Exam: Present: normal rhythm, tachycardia - GI/Abdominal GI/Abdominal exam: Present: soft. Absent: distended, tenderness - Extremities Exam Extremities exam: Absent: pedal edema, calf tenderness - Neurological Exam Neurological exam: Present: alert, oriented X3 - Psychiatric Psychiatric exam: Present: normal affect, normal mood - Skin Skin exam: Present: warm, dry, intact, normal color ED Course Vital Signs 05/22/18 05/22/1819 09:50 10:00 10:46 Pulse Rate 140 H 115 H Respiratory 26 H 10 L Rate Blood Pressure 154/105 166/125 Blood Pressure [Left] O2 Sat by Pulse 99 100 Oximetry 05/22/18 05/22/18 05/22/18 11:16 11:30 11:46 Pulse Rate 120 H 100 H 107 H Respiratory 21 17 19 Rate Blood Pressure 178/111 157/93 157/93 Blood Pressure [Left] O2 Sat by Pulse 100 95 Oximetry 05/22/18 05/22/18 05/22/18 11:52 12:30 13:26 Pulse Rate 104 H 126 H 112 H Respiratory 20 18 Rate Blood Pressure 157/93 168/114 Blood Pressure 131/83 [Left] O2 Sat by Pulse 98 Oximetry - Consultations Consultation #1: 05/22/18 11:47 Spoke w/ Dr De La Cruz, states admit for obs JORDANA score - Jordana Score Age > 65: (1) Yes Aspirin use within the Past 7 Days: (0) No 3 or more CAD Risk Factors: (1) Yes 2 or more Angina events in past 24 hrs: (1) Yes Known CAD with more than 50% Stenosis: (0) No Elevated Cardiac Markers: (0) No ST Deviation Greater than 0.5mm: (0) No JORDANA Score: 3 ED Medical Decision Making - Lab Data Result diagrams: 05/22/18 10:57 05/22/18 10:57 - EKG Data -: EKG Interpreted by Hi EKG shows normal: sinus rhythm, axis, intervals, QRS complexes, ST-T waves Rate: tachycardia (rate 115) - EKG Data Interpretation: no acute changes - Radiology Data Radiology results: report reviewed, image reviewed - Medical Decision Making 67-year-old female with history of COPD and CHF complaining of chest pain and shortness of breath. No wheezing on exam, patient is being in complete sentences, no increase in O2 requirements, patient on 2 L O2 with normal saturations. Patient also has history of anxiety. Patient was given Ativan which seemed to help her symptoms. The patient's tachycardia would increase to the 120s when speaking to her, however, when she would calm down, heart rate improved to the 90s-100s. Chest x-ray negative, labs unremarkable EKG showed no ST changes. Most recent workup for patient's chest pain and SOB was September 2017 which was unremarkable. Spoke w/ Dr De La Cruz, vp site, who would like patient admitted for observation. Will admit to hospitalist, Dr. Turner, for further management. - Differential Diagnosis ACS, pneumonia, CHF, anxiety Critical care attestation.: If time is entered above; I have spent that time in minutes in the direct care of this critically ill patient, excluding procedure time. ED Disposition Clinical Impression: Chest pain Disposition: [id number] OP ADMIT IP TO THIS HOSP Is pt being admited?: Yes Condition: Stable Time of Disposition: 11:50
[2018-05-22] MEDS ORDERED: ATIVAN PO ONE (10:57)
[2018-05-22 11:09] LABS: Basophils # (Auto) 0.1 K/mm3 (0.0-0.1); Basophils % (Auto) 0.6 % (0.0-1.8); Eosinophils # (Auto) 0.1 K/mm3 (0.0-0.4); Eosinophils % (Auto) 0.8 % (0.0-4.3); Hematocrit 36.4 % (30.3-42.9); Hemoglobin 11.9 gm/dl (10.1-14.3); Lymphocytes # (Auto) 1.9 K/mm3 (1.2-5.4); Lymphocytes % (Auto) 16.6 % (13.4-35.0); Mean Corpuscular HGB Conc 33 % (30-34); Mean Corpuscular Volume 91 fl (79-97); Monocytes # (Auto) 0.8 K/mm3 (0.0-0.8); Monocytes % (Auto) 7.2 % (0.0-7.3); Platelet Count 272 K/mm3 (140-440); Red Blood Count 4.01 M/mm3 (3.65-5.03); Red Cell Distribution Width 16.5 % (13.2-15.2)
[2018-05-22 11:30] LABS: BUN/Creatinine Ratio 16; Blood Urea Nitrogen 14 mg/dL (7-17); Calcium 9.4 mg/dL (8.4-10.2); Hemolysis Index 8; INR 0.93 (0.87-1.13)
[2018-05-22 11:31] LABS: Partial Thromboplastin Time 22.4 Sec. (24.2-36.6)
[2018-05-22] MEDS ORDERED: NORMODYNE IV ONE (11:41)
[2018-05-22] MEDS ORDERED: ASPIRIN PO ONE (11:46)
--- NOTE | 2018-05-22 12:14 | XRay Report ---
AP CHEST: HISTORY: chest pain There is mild rotation to the left. Mild cardiomegaly and pulmonary venous congestion appear stable since 03/16/18. The lungs are mildly hyperinflated but clear. No obvious pneumonia, pleural effusion or pneumothorax. IMPRESSION: Cardiomegaly and pulmonary venous congestion. Hyperinflated lungs. No significant change since 03/16/18.
[2018-05-22] MEDS: DILAUDID IV PRN (16:32)
--- NOTE | 2018-05-22 18:09 | Event Note ---
Date: 05/22/18 Cardiology note dictated #1 dyspnea etiology uncertain #2 history of CHF and COPD #3 hypertension New onset of difficulty in breathing etiology uncertain. Currently on oxygen. Patient had echo in February which showed normal ejection fraction. Will obtain a repeat echo. Will obtain blood gases and review the same. I have ordered intravenous Lasix because of mild pulmonary congestion. The symptoms are somewhat out of proportion to the findings. Patient will be monitored closely. Case discussed with Dr. Turner. Patient is followed by Dr. Edwards and Dr. Anila Hodge as an outpatient but she has been quite noncompliant with her follow-up. Overall prognosis is guarded. Thank you Dr. NICHOLE De La Cruz
[2018-05-22] MEDS ORDERED: LASIX IV ONE (18:30)
[2018-05-22] MEDS ORDERED: ATIVAN IV PRN (20:25)
[2018-05-22] MEDS ORDERED: APRESOLINE IV PRN (20:27)
[2018-05-22] MEDS ORDERED: VISTARIL PO PRN (20:28)
[2018-05-22] MEDS ORDERED: OXYCODONE 20 MG PO PRN (20:28)
[2018-05-22] MEDS ORDERED: PROVENTIL IH PRN (20:28)
[2018-05-22] MEDS ORDERED: NON-FORMULARY (Diltiazem Hcl [Diltiazem Er] 240 MG) PO SCH (20:30)
[2018-05-22] MEDS ORDERED: PROAIR IH SCH (20:30)
[2018-05-22] MEDS ORDERED: ROXICODONE PO PRN (20:39)
--- NOTE | 2018-05-22 20:41 | History and Physical Report ---
History of Present Illness Date of examination: 05/22/18 Date of admission: 05/22/18 11:51 Chief complaint: SOB for 2 days History of present illness: 67-year-old female with history of COPD,CHF Chronic pain,Depression and anxiety comes in for increasing SOB for 2 days.Also SOB with minimal exertion.Class IV NYHA symptoms.Also Orthopnea present.Also complaints of Chest pain for 2 days.Intermittent innature.Localized to chest.No radiation.No diaphoresis or palpitations. Also swelling of legs.No recent travel.No fever or chills. Past Medical History Hypertension: Yes Congestive Heart Failure: Yes GERD: Yes Arthritis: Yes COPD: Yes Chronic back pain Surgical History Hernia repair Lower back/ cycst removal Social History Smoking Status: Former Smoker Substance Use Type: None Review of Systems ROS: Stated complaint: BODY PAIN/OUT OF MEDS Other details as noted in HPI Comment: All other systems reviewed and negative Constitutional: denies: chills, fever Respiratory: shortness of breath. denies: cough Cardiovascular: chest pain Gastrointestinal: denies: nausea Psychiatric: anxiety Medications and Allergies Allergies Allergy/AdvReac Type Severity Reaction Status Date / Time No Known Allergies Allergy Verified 05/22/18 09:54 Home Medications Medication Instructions Recorded Confirmed Last Taken Type ALBUTEROL NEB's [Proventil 0.083% 2.5 mg IH Q4HRT PRN #30 nebu 03/05/18 05/22/18 Unknown Rx NEBS] predniSONE [Prednisone] 50 mg PO DAILY #7 tablet 03/05/18 05/22/18 Unknown Rx Metoprolol [Lopressor TAB] 25 mg PO BID tablet 03/21/18 05/22/18 Unknown Rx hydrOXYzine PAMOATE [Vistaril] 50 mg PO Q6H PRN #90 capsule 03/21/18 05/22/18 Unknown Rx Albuterol Sulfate [Ventolin Hfa] 2 puff IH Q4H 05/22/18 05/22/18 Unknown History Amlodipine Besylate [Norvasc] 10 mg PO DAILY 05/22/18 05/22/18 Unknown History Buprenorphine HCl/Naloxone HCl 1 film SL DAILY 05/22/18 05/22/18 Unknown History [Suboxone 8 mg-2 mg SL Film] Diltiazem HCl [Diltiazem ER] 240 mg PO DAILY 05/22/18 05/22/18 Unknown History Folic Acid [Folvite] 1 mg PO DAILY 05/22/18 05/22/18 Unknown History LORazepam [Ativan] 1 mg PO TID 05/22/18 05/22/18 05/22/18 History Sertraline [Zoloft] 100 mg PO DAILY 05/22/18 05/22/18 Unknown History cloNIDine-TTS PATCH [Catapres-Tts 0.2 mg TD QWEEK 05/22/18 05/22/18 Unknown History Patch] oxyCODONE 20 mg PO Q6HR PRN 05/22/18 05/22/18 05/15/18 History traZODone [Desyrel] 50 mg PO DAILY 05/22/18 05/22/18 Unknown History Active Meds: Active Medications Albuterol (Proair) 2 puff IH Q4H ANGELES Last Admin: 05/22/18 20:39 Dose: Not Given Documented by: Albuterol (Proventil) 2.5 mg IH Q4HRT PRN PRN Reason: Shortness Of Breath Last Admin: 05/22/18 20:40 Dose: 2.5 mg Documented by: Amlodipine Besylate (Norvasc) 10 mg PO DAILY ANGELES Clonidine HCl (Catapres-Tts Patch) 0.2 mg TD Fr ANGELES Diltiazem HCl (Cardizem Cd) 240 mg PO QDAY ANGELES Folic Acid (Folvite) 1 mg PO DAILY ANGELES Hydralazine HCl (Apresoline) 5 mg IV Q6HR PRN PRN Reason: Hypertension Hydromorphone HCl (Dilaudid) 0.5 mg IV Q3H PRN PRN Reason: Pain , Severe (7-10) Last Admin: 05/22/18 16:32 Dose: 0.5 mg Documented by: Hydroxyzine Pamoate (Vistaril) 50 mg PO Q6H PRN PRN Reason: Anxiety Mild Lorazepam (Ativan) 1 mg IV Q6H PRN PRN Reason: Anxiety Last Admin: 05/22/18 20:36 Dose: 1 mg Documented by: Lorazepam (Ativan) 1 mg PO TID ANGELES Metoprolol Tartrate (Lopressor) 25 mg PO BID ANGELES Oxycodone HCl (Roxicodone) 20 mg PO Q6H PRN PRN Reason: Pain, Moderate (4-6) Prednisone (Deltasone) 50 mg PO DAILY [facility] Sertraline HCl (Zoloft) 100 mg PO DAILY ANGELES Trazodone HCl (Desyrel) 50 mg PO DAILY [facility] Exam - Constitutional Vitals: Temp Pulse Resp BP Pulse Ox 97.8 F 102 H 20 161/92 98 05/22/18 20:00 05/22/18 20:35 05/22/18 20:35 05/22/18 19:32 05/22/18 20:37 General appearance: Present: mild distress, well-nourished - EENT Eyes: Present: PERRL ENT: hearing intact, clear oral mucosa - Neck Neck: Present: supple, normal ROM - Respiratory Respiratory effort: normal Respiratory: bilateral: CTA - Cardiovascular Heart rate: 115 Rhythm: regular Heart Sounds: Present: S1 & S2. Absent: rub, click - Extremities Extremities: no ischemia, pulses intact, pulses symmetrical, No edema Extremity abnormal: edema (2 plus) Peripheral Pulses: within normal limits - Abdominal General gastrointestinal: Present: soft, non-tender, non-distended, normal bowel sounds Female genitourinary: Present: normal - Integumentary Integumentary: Present: clear, warm, dry - Musculoskeletal Musculoskeletal: gait normal, strength equal bilaterally - Psychiatric Psychiatric: appropriate mood/affect, intact judgment & insight - Neurologic Neurologic: CNII-XII intact, moves all extremities - Allied Health Allied health notes reviewed: nursing, case management Results - Labs CBC & Chem 7: 05/22/18 10:57 05/22/18 10:57 Labs: Laboratory Last Values WBC 11.5 K/mm3 (4.5-11.0) H 05/22/18 10:57 RBC 4.01 M/mm3 (3.65-5.03) 05/22/18 10:57 Hgb 11.9 gm/dl (10.1-14.3) 05/22/18 10:57 Hct 36.4 % (30.3-42.9) 05/22/18 10:57 MCV 91 fl (79-97) 05/22/18 10:57 MCH 30 pg (28-32) 05/22/18 10:57 MCHC 33 % (30-34) 05/22/18 10:57 RDW 16.5 % (13.2-15.2) H 05/22/18 10:57 Plt Count 272 K/mm3 (140-440) 05/22/18 10:57 Lymph % (Auto) 16.6 % (13.4-35.0) 05/22/18 10:57 [place] % (Auto) 7.2 % (0.0-7.3) 05/22/18 10:57 Eos % (Auto) 0.8 % (0.0-4.3) 05/22/18 10:57 Baso % (Auto) 0.6 % (0.0-1.8) 05/22/18 10:57 Lymph # 1.9 K/mm3 (1.2-5.4) 05/22/18 10:57 [place] # 0.8 K/mm3 (0.0-0.8) 05/22/18 10:57 Eos # 0.1 K/mm3 (0.0-0.4) 05/22/18 10:57 Baso # 0.1 K/mm3 (0.0-0.1) 05/22/18 10:57 Seg Neutrophils % 74.8 % (40.0-70.0) H 05/22/18 10:57 Seg Neutrophils # 8.6 K/mm3 (1.8-7.7) H 05/22/18 10:57 PT 13.0 Sec. (12.2-14.9) 05/22/18 10:57 INR 0.93 (0.87-1.13) 05/22/18 10:57 APTT 22.4 Sec. (24.2-36.6) L 05/22/18 10:57 D-Dimer 309.59 ng/mlDDU (0-234) H 05/22/18 19:54 Sodium 143 mmol/L (137-145) 05/22/18 10:57 Potassium 3.6 mmol/L (3.6-5.0) 05/22/18 10:57 Chloride 100.5 mmol/L (98-107) 05/22/18 10:57 Carbon Dioxide 32 mmol/L (22-30) H 05/22/18 10:57 Anion Gap 14 mmol/L 05/22/18 10:57 BUN 14 mg/dL (7-17) 05/22/18 10:57 Creatinine 0.9 mg/dL (0.7-1.2) 05/22/18 10:57 Estimated GFR > 60 ml/min 05/22/18 10:57 BUN/Creatinine Ratio 16 % 05/22/18 10:57 Glucose 124 mg/dL (65-100) H 05/22/18 10:57 Calcium 9.4 mg/dL (8.4-10.2) 05/22/18 10:57 Troponin T < 0.010 ng/mL (0.00-0.029) 05/22/18 14:46 NT-Pro-B Natriuret Pep 738.5 pg/mL (0-900) 05/22/18 10:57 Short CBC 05/22/18 Range/Units 10:57 WBC 11.5 H (4.5-11.0) K/mm3 Hgb 11.9 (10.1-14.3) gm/dl Hct 36.4 (30.3-42.9) % Plt Count 272 (140-440) K/mm3 BMP 05/22/18 10:57 Sodium 143 Potassium 3.6 Chloride 100.5 Carbon Dioxide 32 H BUN 14 Creatinine 0.9 Glucose 124 H Calcium 9.4 Cardiac Enzymes 05/22/18 05/22/18 Range/Units 10:57 14:46 Troponin T < 0.010 < 0.010 (0.00-0.029) ng/mL - Imaging and Cardiology EKG: report reviewed (Sinus Tachycardia) Chest x-ray: report reviewed Imaging and Cardiology: CXR Cardiomegaly and pulmonary venous congestion. Hyperinflated lungs. No significant change since 03/16/18. Assessment and Plan Assessment and plan: Full code Advance Directives: Yes - Patient Problems (1) Chest pain Current Visit: Yes Status: Acute Qualifiers: Chest pain type: unspecified Qualified Code(s): R07.9 - Chest pain, unspec ified Plan to address problem: Serial Troponins and Lexiscan in aM GERD indifferential diagnosis (2) Pulmonary hypertension, moderate to severe Current Visit: No Status: Chronic Plan to address problem: Causing bilateral lower extremity swelling ECHO for RV presures Lasix for now Cardiology consult (3) HTN (hypertension) Current Visit: No Status: Chronic Qualifiers: Hypertension type: essential hypertension Qualified Code(s): I10 - Essential (primary) hypertension Plan to address problem: Cont antihypertensives (4) CHF (congestive heart failure) Current Visit: Yes Status: Chronic Qualifiers: Heart failure type: combined systolic and diastolic Plan to address problem: Cont Lasix BNP in 700's ECHO for EF (5) Opiate dependence Current Visit: No Status: Chronic Qualifiers: Substance use status: uncomplicated Qualified Code(s): F11.20 - Opioid dependence, uncomplicated Plan to address problem: Needs Out patient treatment On Oxycodone 20 mg qid consult requested (6) Depression Current Visit: Yes Status: Chronic Qualifiers: Depression Type: unspecified Qualified Code(s): F32.9 - Major depressive disorder, single episode, unspecified Plan to address problem: Cont antidepressant (7) DVT prophylaxis Current Visit: No Status: Acute Plan to address problem: On Lovenox and GI prophylaxis
[2018-05-22] MEDS ORDERED: DELTASONE PO SCH (21:00)
[2018-05-22] MEDS: NORVASC PO SCH (21:59)
[2018-05-22] MEDS: FOLVITE PO SCH (22:00)
[2018-05-22] MEDS: CARDIZEM CD PO SCH (22:00)
[2018-05-22] MEDS: DESYREL PO SCH (22:00)
[2018-05-22] MEDS: ZOLOFT PO SCH (22:00)
[2018-05-22] MEDS: LOPRESSOR PO SCH (22:00)
--- NOTE | 2018-05-23 01:08 | Consultation ---
CARDIOLOGY EVALUATION HISTORY OF PRESENT ILLNESS: The patient is a 67-year-old female, who comes in with complaints about difficulty in breathing that started last night. The patient also complains about anxiety. No significant chest pain is noted. The patient is known to have had a history of chronic obstructive pulmonary disease and questionable history of congestive heart failure. In February, she was admitted here and ejection fraction at that time was noted to be normal. The patient is also followed by Dr. Edwards, but she has not seen either Dr. Hodge in the office or Dr. Edwards in a while. She complains about occasional chest tightness associated with the difficulty in breathing when she has more difficulty in breathing, she notices her chest feels tight, but no chest pain related to any particular activity. The patient is known to have had hypertension and she also has been on steroids. No previous history of myocardial infarction, thrombophlebitis or pulmonary embolism. PERSONAL HISTORY: The patient used to smoke, but currently nonsmoker, nonalcoholic. PHYSICAL EXAMINATION: GENERAL: Adult female, well built and nourished, appears to be quite anxious and dyspneic. VITAL SIGNS: Heart rate is 94, blood pressure 167/105. NECK: Supple. No thyromegaly. Both carotids are palpable and equal. No bruits. CHEST: Symmetrical. LUNGS: Scattered wheezing present. HEART: S1 and S2 are heard well. No significant murmurs are appreciated. ABDOMEN: Soft, nontender. EXTREMITIES: No significant edema or calf tenderness. EKG, sinus tachycardia. Frequent PACs are present. LABORATORY DATA: WBC 11.5, hemoglobin 11.9. Sodium 143, potassium 3.6, BUN 14, creatinine 0.9. BNP is 738. Troponin negative. IMPRESSION: 1. Difficulty in breathing of new onset, etiology uncertain. Chest x-ray showed mild pulmonary vascular congestion, but has not changed significantly from the previous. Echocardiogram done in February shows normal LV function. Plan at this time is to continue current management. She is already on oxygen. We will add intravenous diuretics and monitor closely. The patient will probably benefit from arterial blood gases and pulmonary evaluation also. 2. Hypertension. 3. Chronic obstructive pulmonary disease. 4. Anxiety. PROGNOSIS: Guarded. The patient will be monitored and followed closely. Thank you, Dr. Turner for allowing me to participate in the care of this pleasant lady. JOB# [id number] MCKAYLA/SUSAN
[2018-05-23] MEDS: K-DUR PO SCH ×2 (04:48→19:04)
[2018-05-23] MEDS: DILAUDID IV PRN ×4 (05:05→22:18)
[2018-05-23] MEDS: LASIX IV SCH ×2 (05:07→19:04)
[2018-05-23] MEDS: PROVENTIL IH PRN (05:40)
[2018-05-23] MEDS: ATIVAN PO SCH ×3 (08:02→20:00)
[2018-05-23] MEDS ORDERED: LEXISCAN IV ONE ×2 (08:06→08:13)
[2018-05-23] MEDS ORDERED: DILAUDID ONE (09:47)
[2018-05-23] MEDS ORDERED: METHOTREXATE PO SCH (10:00)
--- NOTE | 2018-05-23 10:02 | Progress Note ---
Assessment and Plan Patient is doing better today. Blood gas report noted Dr. Turner's note noted. Cardiac-escobar she seems to be doing better she still mildly tachycardia neck. I'll postpone the stress test for now until the pulmonary status improves. D- dimer is noted to be elevated etiology uncertain. Patient is supposed to have a echo done today and this will be reviewed.. - Patient Problems (1) CHF (congestive heart failure) Current Visit: Yes Status: Acute (2) Chest pain Current Visit: Yes Status: Acute Qualifiers: Chest pain type: unspecified Qualified Code(s): R07.9 - Chest pain, unspecified (3) Benzodiazepine dependence Current Visit: No Status: Acute (4) Narcotic dependence Current Visit: No Status: Acute (5) Rheumatoid arthritis Current Visit: No Status: Acute (6) COPD (chronic obstructive pulmonary disease) Current Visit: No Status: Chronic (7) HTN (hypertension) Current Visit: No Status: Chronic Qualifiers: Hypertension type: essential hypertension Qualified Code(s): I10 - Essential (primary) hypertension Subjective Date of service: 05/23/18 Interval history: Patient is feeling some better today. No significant chest pain. Patient complains about joint pains and back pain. Also complains of being quite anxious. Objective Vital Signs Temp Pulse Pulse Pulse Resp Resp Resp 05/23/18 08:44 98.5 F 79 99 H 05/23/18 05:45 90 20 05/23/18 05:40 05/23/18 05:35 102 H 18 28 H 05/23/18 05:05 18 05/23/18 04:52 58 L 05/23/18 03:29 97.5 F L 88 20 05/22/18 23:35 97.5 F L 110 H 16 05/22/18 23:09 18 05/22/18 22:09 18 05/22/18 22:00 124 H 90 18 05/22/18 21:59 124 H 05/22/18 21:00 18 05/22/18 20:37 05/22/18 20:35 102 H 20 05/22/18 20:25 88 24 05/22/18 20:00 97.8 F 05/22/18 19:32 124 H 21 05/22/18 19:15 107 H 05/22/18 16:22 97.7 F 05/22/18 16:20 94 H 20 05/22/18 13:26 112 H 18 05/22/18 12:30 126 H 20 05/22/18 11:52 104 H 05/22/18 11:46 107 H 19 05/22/18 11:30 100 H 17 05/22/18 11:16 120 H 21 05/22/18 10:46 115 H 10 L 05/22/18 10:00 140 H 26 H BP BP BP Pulse Ox 05/23/18 08:44 125/63 99 05/23/18 05:45 05/23/18 05:40 95 05/23/18 05:35 05/23/18 05:05 05/23/18 04:52 150/102 05/23/18 03:29 150/102 95 05/22/18 23:35 172/97 95 05/22/18 23:09 05/22/18 22:09 05/22/18 22:00 161/92 98 05/22/18 21:59 161/92 05/22/18 21:00 05/22/18 20:37 98 05/22/18 20:35 05/22/18 20:25 05/22/18 20:00 05/22/18 19:32 161/92 96 05/22/18 19:15 05/22/18 16:22 05/22/18 16:20 167/105 99 05/22/18 13:26 131/83 98 05/22/18 12:30 168/114 05/22/18 11:52 157/93 05/22/18 11:46 157/93 05/22/18 11:30 157/93 95 05/22/18 11:16 178/111 100 05/22/18 10:46 166/125 100 05/22/18 10:00 154/105 - Physical Examination General: No Apparent Distress Cardiac: Positive: Regular Rhythm, Tachycardia Lungs: Positive: Decreased Breath Sounds (in both bases) Neuro: Positive: Grossly Intact - Labs and Meds Coagulation 05/22/18 Range/Units 10:57 PT 13.0 (12.2-14.9) Sec. INR 0.93 (0.87-1.13) APTT 22.4 L (24.2-36.6) Sec. CBC 05/22/18 Range/Units 10:57 WBC 11.5 H (4.5-11.0) K/mm3 RBC 4.01 (3.65-5.03) M/mm3 Hgb 11.9 (10.1-14.3) gm/dl Hct 36.4 (30.3-42.9) % Plt Count 272 (140-440) K/mm3 Lymph # 1.9 (1.2-5.4) K/mm3 [place] # 0.8 (0.0-0.8) K/mm3 Eos # 0.1 (0.0-0.4) K/mm3 Baso # 0.1 (0.0-0.1) K/mm3 Comprehensive Metabolic Panel 05/22/18 Range/Units 10:57 Sodium 143 (137-145) mmol/L Potassium 3.6 (3.6-5.0) mmol/L Chloride 100.5 (98-107) mmol/L Carbon Dioxide 32 H (22-30) mmol/L BUN 14 (7-17) mg/dL Creatinine 0.9 (0.7-1.2) mg/dL Glucose 124 H (65-100) mg/dL Calcium 9.4 (8.4-10.2) mg/dL - Imaging and Cardiology EKG: report reviewed (Sinus Tachycardia)
--- NOTE | 2018-05-23 10:44 | Progress Note ---
Assessment and Plan (1) Chest pain Serial Troponins and Lexiscan in aM GERD indifferential diagnosis (2) Pulmonary hypertension, moderate to severe Causing bilateral lower extremity swelling ECHO for RV presures Lasix for now Cardiology consult (3) HTN (hypertension) Cont antihypertensives (4) CHF (congestive heart failure) Cont Lasix BNP in 700's ECHO for EF (5) Opiate dependence Needs Out patient treatment On Oxycodone 20 mg qid MH consult requested (6) Depression Cont antidepressant (7) DVT prophylaxis On Lovenox and GI prophylaxis Opiate dependence Patient initiated on Suboxone COPD with chronic respiratory failure managed with cont nebs, supplemental o2, empiric steroid consulted pulmonary for discharge clearance as patient appeared very anxious, On home O2 2L Rheumatoid arteritis with debility Patient was showing swan neck deformities in both hands involving 2nd 3rd and 4 th fingers Methotrexate started at low dose once weekly Mild to moderate osteoarthritis on right knee xry, started on high dose steroid --to be tapered-was on 50mg.Cont at 30 mg and Taper Subjective Date of service: 05/23/18 Principal diagnosis: copd with exercebation, Pulm HTN Interval history: no new complaint. Objective - Constitutional Vitals: Vital Signs - 12hr 05/22/18 05/22/18 05/23/18 23:09 23:35 03:29 Temperature 97.5 F L 97.5 F L Pulse Rate 110 H 88 Pulse Rate [ Anterior Bilateral Throughout] Respiratory 18 16 20 Rate Respiratory Rate [Anterior Bilateral Throughout] Blood Pressure 172/97 150/102 Blood Pressure [Right] O2 Sat by Pulse 95 95 Oximetry 05/23/18 05/23/18 05/23/18 04:52 05:05 05:35 Temperature Pulse Rate 58 L Pulse Rate [ 102 H Anterior Bilateral Throughout] Respiratory 18 18 Rate Respiratory 28 H Rate [Anterior Bilateral Throughout] Blood Pressure 150/102 Blood Pressure [Right] O2 Sat by Pulse Oximetry 05/23/18 05/23/18 05/23/18 05:40 05:45 08:44 Temperature 98.5 F Pulse Rate 79 Pulse Rate [ 90 Anterior Bilateral Throughout] Respiratory 99 H Rate Respiratory 20 Rate [Anterior Bilateral Throughout] Blood Pressure Blood Pressure 125/63 [Right] O2 Sat by Pulse 95 99 Oximetry General appearance: Present: no acute distress, well-nourished - EENT Eyes: PERRL, EOM intact ENT: hearing intact, clear oral mucosa Ears: bilateral: normal - Neck Neck: supple, normal ROM - Respiratory Respiratory effort: normal Respiratory: bilateral: CTA - Cardiovascular Rhythm: regular Heart Sounds: Present: S1 & S2. Absent: gallop, rub Extremities: pulses intact, No edema, normal color, Full ROM - Gastrointestinal General gastrointestinal: Present: soft, non-tender, non-distended, normal bowel sounds - Integumentary Integumentary: clear, warm, dry - Musculoskeletal Musculoskeletal: 1, strength equal bilaterally - Neurologic Neurologic: moves all extremities - Psychiatric Psychiatric: memory intact, appropriate mood/affect, intact judgment & insight - Labs CBC & Chem 7: 05/22/18 10:57 05/22/18 10:57 Labs: Abnormal lab results 05/22/18 05/22/18 05/22/18 Range/Units 10:57 10:57 10:57 WBC 11.5 H (4.5-11.0) K/mm3 RDW 16.5 H (13.2-15.2) % Seg Neutrophils % 74.8 H (40.0-70.0) % Seg Neutrophils # 8.6 H (1.8-7.7) K/mm3 APTT 22.4 L (24.2-36.6) Sec. D-Dimer (0-234) ng/mlDDU Carbon Dioxide 32 H (22-30) mmol/L Glucose 124 H (65-100) mg/dL 05/22/18 Range/Units 19:54 WBC (4.5-11.0) K/mm3 RDW (13.2-15.2) % Seg Neutrophils % (40.0-70.0) % Seg Neutrophils # (1.8-7.7) K/mm3 APTT (24.2-36.6) Sec. D-Dimer 309.59 H (0-234) ng/mlDDU Carbon Dioxide (22-30) mmol/L Glucose (65-100) mg/dL
[2018-05-23] MEDS: ZOLOFT PO SCH (12:14)
[2018-05-23] MEDS: DESYREL PO SCH ×3 (12:14→22:19)
[2018-05-23] MEDS: DELTASONE PO SCH (12:15)
[2018-05-23] MEDS: NORVASC PO SCH (12:16)
[2018-05-23] MEDS: LOPRESSOR PO SCH ×2 (12:16→21:50)
[2018-05-23] MEDS: FOLVITE PO SCH (12:16)
[2018-05-23] MEDS: CARDIZEM CD PO SCH (12:17)
--- NOTE | 2018-05-23 16:45 | Cat Scan Report ---
PROCEDURE: CT ANGIO CHEST TECHNIQUE: Computerized tomographic angiography of the chest was performed after the IV injection of iodinated nonionic contrast including image processing. The image data was postprocessed using 2-di mensional multiplanar reformatted (MPR) and 3-dimensional (MIP and/or volume rendered) techniques. Au tomated exposure control, adjustment of mA and/or kV according to patient size, or iterative reconstr uction dose optimization techniques were utilized. CT DOSE LENGTH PRODUCT: 545.9 mGycm HISTORY: shortness of breath with elevated D-dimer COMPARISONS: 03/16/2018 . FINDINGS: Heart and pericardium: No pericardial effusion or thickening. Thoracic aorta: There is atherosclerotic calcification of the aorta. No aneurysm or dissection. Pulmonary vasculature: Normal. Lymph nodes: No enlarged thoracic lymph nodes. Lungs: Minimal platelike atelectasis in the lingula abutting the fissure. Pleural space: No effusion, thickening, or pneumothorax. Musculoskeletal structures: No significant abnormality. Upper abdominal structures: Left adrenal hyperplasia. Bilateral renal cysts. IMPRESSION: No evidence of pulmonary emboli . This document is electronically signed by Shona Obiren MD., May 23 2018 04:43:04 PM ET
[2018-05-23] MEDS: LOVENOX SUB-Q SCH (21:50)
[2018-05-24] MEDS: DILAUDID IV PRN ×3 (05:33→21:32)
[2018-05-24] MEDS: LASIX IV SCH ×2 (05:33→17:16)
[2018-05-24] MEDS: K-DUR PO SCH ×2 (05:33→17:16)
[2018-05-24 07:28] LABS: Basophils # (Auto) 0.1 K/mm3 (0.0-0.1); Basophils % (Auto) 0.5 % (0.0-1.8); Eosinophils % (Auto) 0.2 % (0.0-4.3); Hematocrit 34.2 % (30.3-42.9); Hemoglobin 11.3 gm/dl (10.1-14.3); Lymphocytes # (Auto) 1.9 K/mm3 (1.2-5.4); Lymphocytes % (Auto) 14.8 % (13.4-35.0); Mean Corpuscular HGB Conc 33 % (30-34); Mean Corpuscular Volume 90 fl (79-97); Monocytes # (Auto) 0.7 K/mm3 (0.0-0.8); Monocytes % (Auto) 5.9 % (0.0-7.3); Platelet Count 253 K/mm3 (140-440); Red Blood Count 3.81 M/mm3 (3.65-5.03); Red Cell Distribution Width 16.8 % (13.2-15.2)
[2018-05-24] MEDS: ATIVAN PO SCH ×3 (07:51→20:30)
[2018-05-24 07:52] LABS: Albumin 4.3 g/dL (3.9-5); Calcium 9.4 mg/dL (8.4-10.2)
[2018-05-24] MEDS: PROVENTIL IH PRN (09:43)
[2018-05-24] MEDS: FOLVITE PO SCH (10:27)
--- NOTE | 2018-05-24 11:16 | Progress Note ---
Assessment and Plan Patient is doing better today. Recent CT scan is noted to be negative for pulmonary embolism. Cardiac-escobar she is doing better. She will need a stress thallium test for further cardiac evaluation probably in one or 2 days. This may even be done as an outpatient. Patient has periods of tachycardia but currently the rate is stable and she is in a sinus rhythm. Continue current management. - Patient Problems (1) CHF (congestive heart failure) Current Visit: Yes Status: Acute (2) Chest pain Current Visit: Yes Status: Acute Qualifiers: Chest pain type: unspecified Qualified Code(s): R07.9 - Chest pain, unspecified (3) Benzodiazepine dependence Current Visit: No Status: Acute (4) Narcotic dependence Current Visit: No Status: Acute (5) Rheumatoid arthritis Current Visit: No Status: Acute (6) COPD (chronic obstructive pulmonary disease) Current Visit: No Status: Chronic (7) HTN (hypertension) Current Visit: No Status: Chronic Qualifiers: Hypertension type: essential hypertension Qualified Code(s): I10 - Essential (primary) hypertension Subjective Date of service: 05/24/18 Principal diagnosis: copd with exercebation, Pulm HTN Interval history: Looks better today. Patient denies chest pain or significant difficulty in breathing. Appears to be less anxious. Objective Vital Signs Temp Pulse Pulse Resp Resp BP BP 05/24/18 09:59 05/24/18 09:57 99 H 20 05/24/18 09:46 05/24/18 09:45 108 H 22 05/24/18 05:14 98.3 F 77 22 138/73 05/24/18 05:00 71 05/24/18 01:06 98.3 F 73 20 114/65 05/23/18 22:00 18 05/23/18 21:50 86 126/68 05/23/18 21:00 71 05/23/18 20:12 98.6 F 86 20 126/68 05/23/18 16:52 98.9 F 84 18 130/72 05/23/18 14:55 98.7 F 89 16 145/74 05/23/18 12:17 88 166/87 05/23/18 12:16 88 166/87 Pulse Ox 05/24/18 09:59 95 05/24/18 09:57 05/24/18 09:46 95 05/24/18 09:45 05/24/18 05:14 95 05/24/18 05:00 05/24/18 01:06 97 05/23/18 22:00 98 05/23/18 21:50 05/23/18 21:00 05/23/18 20:12 95 05/23/18 16:52 96 05/23/18 14:55 95 05/23/18 12:17 05/23/18 12:16 - Physical Examination General: No Apparent Distress Neck: Positive: neck supple Cardiac: Positive: Reg Rate and Rhythm Lungs: Positive: Decreased Breath Sounds (both bases.), Rhonchi Neuro: Positive: Grossly Intact Abdomen: Positive: Soft - Labs and Meds Cardiac Enzymes 05/24/18 Range/Units 07:10 AST 11 (5-40) units/L CBC 05/24/18 Range/Units 07:10 WBC 12.7 H (4.5-11.0) K/mm3 RBC 3.81 (3.65-5.03) M/mm3 Hgb 11.3 (10.1-14.3) gm/dl Hct 34.2 (30.3-42.9) % Plt Count 253 (140-440) K/mm3 Lymph # 1.9 (1.2-5.4) K/mm3 [place] # 0.7 (0.0-0.8) K/mm3 Eos # 0.0 (0.0-0.4) K/mm3 Baso # 0.1 (0.0-0.1) K/mm3 Comprehensive Metabolic Panel 05/24/18 Range/Units 07:10 Sodium 142 (137-145) mmol/L Potassium 3.9 (3.6-5.0) mmol/L Chloride 98.3 (98-107) mmol/L Carbon Dioxide 28 (22-30) mmol/L BUN 28 H (7-17) mg/dL Creatinine 1.2 (0.7-1.2) mg/dL Glucose 111 H (65-100) mg/dL Calcium 9.4 (8.4-10.2) mg/dL AST 11 (5-40) units/L ALT 8 (7-56) units/L Alkaline Phosphatase 65 (35-129) units/L Total Protein 6.5 (6.3-8.2) g/dL Albumin 4.3 (3.9-5) g/dL - Imaging and Cardiology EKG: report reviewed (Sinus Tachycardia)
[2018-05-24] MEDS: NORVASC PO SCH (11:22)
[2018-05-24] MEDS: DELTASONE PO SCH (11:23)
[2018-05-24] MEDS: CARDIZEM CD PO SCH (11:24)
[2018-05-24] MEDS: LOPRESSOR PO SCH ×2 (11:24→21:33)
[2018-05-24] MEDS: ZOLOFT PO SCH (11:24)
[2018-05-24] MEDS: DESYREL PO SCH ×2 (11:26→21:31)
--- NOTE | 2018-05-24 12:18 | Progress Note ---
Assessment and Plan - Chest pain Serial Troponins nl Lexiscan in aM GERD indifferential diagnosis - on PPI - COPD with chronic respiratory failure managed with cont nebs, supplemental o2, empiric steroid consulted pulmonary for discharge clearance as patient appeared very anxious, On home O2 2L - Pulmonary hypertension, moderate to severe Causing bilateral lower extremity swelling ECHO for RV presures Lasix for now Cardiology consult - HTN (hypertension) Controlled Cont antihypertensives - CHF (congestive heart failure) Cont Lasix BNP in 738.5 ECHO for HF - report pending - Opiate dependence Needs Out patient treatment On Oxycodone 20 mg qid Mental health consult requested - Depression Cont antidepressant - Elevated d-dimer CT angios which issues diabetes of pulmonary embolism - DVT prophylaxis On Lovenox and GI prophylaxis - Opiate dependence Patient initiated on Suboxone - Rheumatoid arteritis with debility Patient was showing swan neck deformities in both hands involving 2nd 3rd and 4 th fingers Methotrexate started at low dose once weekly Mild to moderate osteoarthritis on right knee xry, started on high dose steroid --to be tapered-was on 50mg.Cont at 30 mg and Taper Advance Directives: Yes VTE prophylaxis: Chemical Plan of care discussed with patient/family who expressed understanding: Yes Subjective Date of service: 05/24/18 Principal diagnosis: copd with exercebation, Pulm HTN Interval history: no new complaint. still short of breath on slight exertion. Objective - Exam Narrative Exam: Constitutional: On oxygen via nasal cannula to sat of 94-95 on 3 L. In no distress Head: Normocephalic atraumatic Eyes: Pupils are equal round and reactive to light Nose: No enlarged turbinates, no septal deviation. Mouth: Moist mucous membranes. Neck: Supple no thyromegaly. No bruit. No JVD Heart: Regular rate and rhythm, S1-S2 normal. No rubs murmurs or gallop Lungs: Decreased breath sounds bilaterally. no rales or rhonchi Abdomen: Soft, nontender. Bowel sound are present. Extremities: No edema, no cyanosis, no clubbing. Neuro: Alert oriented Oriented x3. No focal sensory or motor deficit. Skin: No rashes or hyperpigmented spots Musculoskeletal system: No joint pain or swelling Hematological: No petechia or subcutanous hemorrhages. Immunological: No multiple septic spots on the skin Lymphatic: No generalized lymphadenopathy Psychiatry: Euthymic. Calm. - Constitutional Vitals: Vital Signs - 12hr 03/31/19 03/31/19 03/31/19 01:06 05:00 05:14 Temperature 98.3 F 98.3 F Pulse Rate 73 71 77 Pulse Rate [ Anterior Bilateral Throughout] Respiratory 20 22 Rate Respiratory Rate [Anterior Bilateral Throughout] Blood Pressure 114/65 138/73 O2 Sat by Pulse 97 95 Oximetry 05/24/18 05/24/18 05/24/18 09:45 09:46 09:57 Temperature Pulse Rate Pulse Rate [ 108 H 99 H Anterior Bilateral Throughout] Respiratory Rate Respiratory 22 20 Rate [Anterior Bilateral Throughout] Blood Pressure O2 Sat by Pulse 95 Oximetry 05/24/18 09:59 Temperature Pulse Rate Pulse Rate [ Anterior Bilateral Throughout] Respiratory Rate Respiratory Rate [Anterior Bilateral Throughout] Blood Pressure O2 Sat by Pulse 95 Oximetry General appearance: Present: no acute distress, well-nourished - EENT Eyes: PERRL, EOM intact Ears: bilateral: normal - Neck Neck: supple, normal ROM - Respiratory Respiratory effort: normal Respiratory: bilateral: diminished - Cardiovascular Rhythm: regular Heart Sounds: Present: S1 & S2. Absent: gallop, rub Extremities: pulses intact, No edema, normal color, Full ROM - Gastrointestinal General gastrointestinal: Present: soft, non-tender, non-distended, normal bowel sounds - Integumentary Integumentary: clear, warm, dry - Musculoskeletal Musculoskeletal: 1, strength equal bilaterally - Neurologic Neurologic: moves all extremities - Psychiatric Psychiatric: memory intact, appropriate mood/affect, intact judgment & insight - Labs CBC & Chem 7: 05/24/18 07:10 05/24/18 07:10 Labs: Abnormal lab results 05/24/18 05/24/18 Range/Units 07:10 07:10 WBC 12.7 H (4.5-11.0) K/mm3 RDW 16.8 H (13.2-15.2) % Seg Neutrophils % 78.6 H (40.0-70.0) % Seg Neutrophils # 10.0 H (1.8-7.7) K/mm3 BUN 28 H (7-17) mg/dL Glucose 111 H (65-100) mg/dL
[2018-05-24] MEDS: DUONEB *Not for PRN Use IH SCH ×2 (13:43→21:21)
[2018-05-24] MEDS: BROVANA NEBU IH SCH (21:22)
[2018-05-24] MEDS: LOVENOX SUB-Q SCH (21:37)
[2018-05-25 06:09] LABS: Basophils % (Auto) 0.2 % (0.0-1.8); Eosinophils # (Auto) 0.1 K/mm3 (0.0-0.4); Eosinophils % (Auto) 0.6 % (0.0-4.3); Hematocrit 31.5 % (30.3-42.9); Hemoglobin 10.4 gm/dl (10.1-14.3); Lymphocytes # (Auto) 1.8 K/mm3 (1.2-5.4); Lymphocytes % (Auto) 15.5 % (13.4-35.0); Mean Corpuscular HGB Conc 33 % (30-34); Mean Corpuscular Volume 90 fl (79-97); Monocytes # (Auto) 0.7 K/mm3 (0.0-0.8); Monocytes % (Auto) 5.9 % (0.0-7.3); Platelet Count 214 K/mm3 (140-440)
[2018-05-25] MEDS: K-DUR PO SCH ×2 (06:19→17:46)
[2018-05-25] MEDS: LASIX IV SCH ×2 (06:19→17:46)
[2018-05-25] MEDS: DILAUDID IV PRN ×4 (06:25→23:24)
[2018-05-25 06:32] LABS: Alanine Aminotransferase 10 units/L (7-56); Albumin 3.9 g/dL (3.9-5); BUN/Creatinine Ratio 29; Blood Urea Nitrogen 29 mg/dL (7-17); Hemolysis Index 17
[2018-05-25] MEDS: DUONEB *Not for PRN Use IH SCH ×3 (07:18→20:20)
[2018-05-25] MEDS: BROVANA NEBU IH SCH ×2 (07:18→20:20)
[2018-05-25] MEDS: DELTASONE PO SCH (10:06)
[2018-05-25] MEDS: DESYREL PO SCH ×2 (10:06→21:20)
[2018-05-25] MEDS: ZOLOFT PO SCH (10:07)
[2018-05-25] MEDS: NORVASC PO SCH (10:07)
[2018-05-25] MEDS: FOLVITE PO SCH (10:09)
[2018-05-25] MEDS: ATIVAN PO SCH (10:09)
[2018-05-25] MEDS: CARDIZEM CD PO SCH (10:09)
[2018-05-25] MEDS: LOPRESSOR PO SCH ×2 (10:09→21:20)
--- NOTE | 2018-05-25 10:48 | Consultation ---
History of Present Illness - Reason for Consult Consult date: 05/25/18 Reason for consult: Mental Health Evaluation Requesting physician: SAMANTHA LERNER - Chief Complaint Chief complaint: "I want the pain to go away" - History of Present Psychiatric Illness 67-year-old female who presented to the emergency room for chest pain. This patient is known to me. Psychiatry was consulted for opioid dependence. Today the patient is cooperative, but anxious during the assessment. She stated that she take Suboxone "sometimes." She stated that her doctor has transitioned her to Subozone 2 weeks ago. Also, she stated that she is seen by Dr Galvan for pain management. She stated that her major issue is her chronic back pain from a fall. She stated that her depression and anxiety stem from all her medical conditions along with worrying about her son who reside with her. She stated that her son is "somewhat disabled." She stated that she is seen by Dr Pham for outpatient psy services. She stated that she is compliant with her medications, but do not take Ativan for anxiety. She denies SI/HI's and AVH's. She acknowledged "so so" sleep, but denies a poor appetite. She denies recreational drug use and alcohol consumption (etoh). Medications and Allergies Allergies Allergy/AdvReac Type Severity Reaction Status Date / Time No Known Allergies Allergy Verified 05/22/18 09:54 Home Medications Medication Instructions Recorded Confirmed Last Taken Type ALBUTEROL NEB's [Proventil 0.083% 2.5 mg IH Q4HRT PRN #30 nebu 03/05/18 05/22/18 Unknown Rx NEBS] predniSONE [Prednisone] 50 mg PO DAILY #7 tablet 03/05/18 05/22/18 Unknown Rx Metoprolol [Lopressor TAB] 25 mg PO BID tablet 03/21/18 05/22/18 Unknown Rx hydrOXYzine PAMOATE [Vistaril] 50 mg PO Q6H PRN #90 capsule 03/21/18 05/22/18 Unknown Rx Albuterol Sulfate [Ventolin Hfa] 2 puff IH Q4H 05/22/18 05/22/18 Unknown History Amlodipine Besylate [Norvasc] 10 mg PO DAILY 05/22/18 05/22/18 Unknown History Buprenorphine HCl/Naloxone HCl 1 film SL DAILY 05/22/18 05/22/18 Unknown History [Suboxone 8 mg-2 mg SL Film] Diltiazem HCl [Diltiazem ER] 240 mg PO DAILY 05/22/18 05/22/18 Unknown History Folic Acid [Folvite] 1 mg PO DAILY 05/22/18 05/22/18 Unknown History LORazepam [Ativan] 1 mg PO TID 05/22/18 05/22/18 05/22/18 History Sertraline [Zoloft] 100 mg PO DAILY 05/22/18 05/22/18 Unknown History cloNIDine-TTS PATCH [Catapres-Tts 0.2 mg TD QWEEK 05/22/18 05/22/18 Unknown History Patch] oxyCODONE 20 mg PO Q6HR PRN 05/22/18 05/22/18 05/15/18 History traZODone [Desyrel] 50 mg PO DAILY 05/22/18 05/22/18 Unknown History Active Meds: Active Medications Albuterol (Proventil) 2.5 mg IH Q4HRT PRN PRN Reason: Shortness Of Breath Last Admin: 05/24/18 09:43 Dose: 2.5 mg Documented by: Albuterol/Ipratropium (Duoneb *Not For Prn Use*) 1 ampul IH TIDRT [facility] Last Admin: 05/25/18 07:18 Dose: 1 ampul Documented by: Amlodipine Besylate (Norvasc) 10 mg PO DAILY [facility] Last Admin: 05/25/18 10:07 Dose: 10 mg Documented by: Arformoterol Tartrate (Brovana Nebu) 15 mcg IH Q12HRT [facility] Last Admin: 05/25/18 07:18 Dose: 15 mcg Documented by: Clonidine HCl (Catapres-Tts Patch) 0.2 mg TD Fr [facility] Diltiazem HCl (Cardizem Cd) 240 mg PO QDAY [facility] Last Admin: 05/25/18 10:09 Dose: 240 mg Documented by: Enoxaparin Sodium (Lovenox) 40 mg SUB-Q QDAY@2200 [facility] Last Admin: 05/24/18 21:37 Dose: 40 mg Documented by: Folic Acid (Folvite) 1 mg PO DAILY [facility] Last Admin: 05/25/18 10:09 Dose: 1 mg Documented by: Furosemide (Lasix) 40 mg IV 0600,1800 [facility] Last Admin: 05/25/18 06:19 Dose: 40 mg Documented by: Hydralazine HCl (Apresoline) 5 mg IV Q6HR PRN PRN Reason: Hypertension Last Admin: 05/23/18 04:52 Dose: 5 mg Documented by: Hydromorphone HCl (Dilaudid) 0.5 mg IV Q3H PRN PRN Reason: Pain , Severe (7-10) Last Admin: 05/25/18 06:25 Dose: 0.5 mg Documented by: Hydroxyzine Pamoate (Vistaril) 50 mg PO Q6H PRN PRN Reason: Anxiety Mild Methotrexate (Methotrexate (Dose Weekly Only)) 10 mg PO Sa [facility] Last Admin: 05/23/18 12:24 Dose: Not Given Documented by: Metoprolol Tartrate (Lopressor) 25 mg PO BID [facility] Last Admin: 05/25/18 10:09 Dose: 25 mg Documented by: Potassium Chloride (K-Dur) 20 meq PO Q12HR@0600,1800 [facility] Last Admin: 05/25/18 06:19 Dose: 20 meq Documented by: Prednisone (Deltasone) 30 mg PO QDAY [facility] Last Admin: 05/25/18 10:06 Dose: 30 mg Documented by: Sertraline HCl (Zoloft) 100 mg PO DAILY [facility] Last Admin: 05/25/18 10:07 Dose: 100 mg Documented by: Trazodone HCl (Desyrel) 50 mg PO DAILY [facility] Last Admin: 05/25/18 10:06 Dose: 50 mg Documented by: Past psychiatric history - Past Medical History Past Medical History: other (Chronic back pain) Past Surgical History: Other (hernia repair and lower back/ cycst removal) - past Psychiatric treatment and history psychiatric treatment history: The patient is seen by Dr Pham for outpatient psy services. Denies a fam psy hxx. - Social History Social history: lives with family Mental Status Exam - Vital signs Last Vital Signs Temp 97.9 F 05/25/18 09:01 Pulse 95 H 05/25/18 10:09 Resp 18 05/25/18 09:01 BP 131/76 05/25/18 10:09 Pulse Ox 94 05/25/18 09:59 - Exam Narrative exam: MSE: Appearance: calm, cooperative Behavior: regular eye contact Speech: regular rate and tone Mood: "okay" Affect: congruent to mood Thought Process: logical Thought Content: denies SI/HI's and AVH's Motor Activity: sitting up in bed Cognition: A/O x3 Insight: appropriate Judgment: appropriate Results Result Diagrams: 05/26/18 04:47 05/26/18 04:47 Abnormal lab results 05/25/18 05/25/18 Range/Units 05:08 05:08 WBC 11.8 H (4.5-11.0) K/mm3 RBC 3.50 L (3.65-5.03) M/mm3 RDW 17.0 H (13.2-15.2) % Seg Neutrophils % 77.8 H (40.0-70.0) % Seg Neutrophils # 9.2 H (1.8-7.7) K/mm3 BUN 29 H (7-17) mg/dL Glucose 117 H (65-100) mg/dL Total Protein 5.9 L (6.3-8.2) g/dL All other labs normal. Assessment and Plan Assessment and plan: Impression: MDD, BRYAN, and Opioid Use Disorder. Today the patient is calm and cooperative during the assessment. Recommendation/Plan: Continue Zoloft 100 mg PO daily for depression/anxiety and modified Trazodone to 50 mg PO HS for sleep. Start Ativan taper 1 mg PO BID day one, Ativan 0.5 mg PO BID day 2, and Ativan 0.5 mg PO once day 3. Will start Vistaril 25 mg PO TID for anxiety once the Ativan taper is complete. Discussed possible suicidality/medication induced kandi with the patient reference antidepressants. Recommend not to give benzos and opioids concurrently. Dispo: The patient can follow up with her psychiatrist Dr Pham for outpatient psy services once discharged. . Staffed with Dr Mercy tejeda.
--- NOTE | 2018-05-25 12:03 | Progress Note ---
Assessment and Plan Patient c/o SOB, no current c/o chest pain. Patient has periods of tachycardia but currently the rate is stable and she is in a sinus rhythm. She does have a history of paroxysmal atrial tachycardia and frequent PACs. Continue current management. Plan for lexiscan MPI stress test in AM. NPO after MN. The patient has been seen in conjunction with Dr. Larios who agrees with the assessment and plan of care. - Patient Problems (1) Chest pain Current Visit: Yes Status: Resolved Qualifiers: Chest pain type: other chest pain Qualified Code(s): R07.89 - Other chest pain; R07.8 - Other chest pain (2) Paroxysmal atrial tachycardia Current Visit: Yes Status: Chronic (3) Anxiety Current Visit: Yes Status: Chronic (4) COPD (chronic obstructive pulmonary disease) Current Visit: Yes Status: Chronic (5) Chronic respiratory failure Current Visit: Yes Status: Chronic (6) HTN (hypertension) Current Visit: Yes Status: Chronic Qualifiers: Hypertension type: essential hypertension Qualified Code(s): I10 - Essential (primary) hypertension (7) Hyperlipidemia Current Visit: Yes Status: Chronic Qualifiers: Hyperlipidemia type: mixed hyperlipidemia Qualified Code(s): E78.2 - Mixed hyperlipidemia (8) Rheumatoid arthritis Current Visit: Yes Status: Chronic Qualifiers: Rheumatoid arthritis location: hand (9) Benzodiazepine dependence Current Visit: No Status: Acute (10) Narcotic dependence Current Visit: No Status: Acute Subjective Date of service: 05/25/18 Principal diagnosis: copd with exercebation, Pulm HTN Interval history: pt resting in bed, c/o SOB. tele reviewed - in SR with brief bouts of PAT noted overnight, pt asymptomatic. Objective Last Vital Signs Temp 97.9 F 05/25/18 09:01 Pulse 95 H 05/25/18 10:09 Resp 18 05/25/18 09:01 BP 131/76 05/25/18 10:09 Pulse Ox 94 05/25/18 09:59 - Physical Examination General: No Apparent Distress Neck: Positive: neck supple Cardiac: Positive: Reg Rate and Rhythm, S1/S2 Lungs: Positive: Decreased Breath Sounds Neuro: Positive: Grossly Intact Abdomen: Positive: Soft - Labs and Meds Cardiac Enzymes 05/25/18 Range/Units 05:08 AST 10 (5-40) units/L CBC 05/25/18 Range/Units 05:08 WBC 11.8 H (4.5-11.0) K/mm3 RBC 3.50 L (3.65-5.03) M/mm3 Hgb 10.4 (10.1-14.3) gm/dl Hct 31.5 (30.3-42.9) % Plt Count 214 (140-440) K/mm3 Lymph # 1.8 (1.2-5.4) K/mm3 Parker # 0.7 (0.0-0.8) K/mm3 Eos # 0.1 (0.0-0.4) K/mm3 Baso # 0.0 (0.0-0.1) K/mm3 Comprehensive Metabolic Panel 05/25/18 Range/Units 05:08 Sodium 145 (137-145) mmol/L Potassium 3.8 (3.6-5.0) mmol/L Chloride 102.0 (98-107) mmol/L Carbon Dioxide 30 (22-30) mmol/L BUN 29 H (7-17) mg/dL Creatinine 1.0 (0.7-1.2) mg/dL Glucose 117 H (65-100) mg/dL Calcium 9.0 (8.4-10.2) mg/dL AST 10 (5-40) units/L ALT 10 (7-56) units/L Alkaline Phosphatase 66 (35-129) units/L Total Protein 5.9 L (6.3-8.2) g/dL Albumin 3.9 (3.9-5) g/dL - Imaging and Cardiology EKG: report reviewed (Sinus Tachycardia) Echo: report reviewed ( 01/2018: EF 50-55%, mild to mod LVH, mild TR, RVSP 48mmHg, trivial pericardial effusion. ) - Telemetry EKG Rhythm: Sinus Rhythm
--- NOTE | 2018-05-25 17:29 | Progress Note ---
Assessment and Plan 67-year-old female with history of COPD,CHF Chronic pain,Depression and anxiety comes in for increasing SOB for 2 days.Also SOB with minimal exertion.Class IV NYHA symptoms.Also Orthopnea present.Also complaints of Chest pain for 2 days.I ntermittent innature.Localized to chest.No radiation.No diaphoresis or palpitations. Also swelling of legs.No recent travel.No fever or chills. - Chest pain Serial Troponins nl Lexiscan stress GERD a differential diagnosis - on PPI - COPD with chronic respiratory failure cont nebs, supplemental o2, empiric steroid consulted pulmonary for discharge clearance as patient appeared very anxious, On home O2 2L - Pulmonary hypertension, moderate to severe Causing bilateral lower extremity swelling ECHO for RV presures Lasix for now Cardiology consult - HTN (hypertension) Controlled Cont antihypertensives - CHF (congestive heart failure) Cont Lasix BNP in 738.5 ECHO for HF - report still pending - Opiate dependence Needs Out patient treatment On Oxycodone 20 mg qid Mental health consult requested - Depression Cont antidepressant - Elevated d-dimer CT angio showed no pulmonary embolism - DVT prophylaxis On Lovenox and GI prophylaxis - Opiate dependence Patient initiated on Suboxone - Rheumatoid arteritis with debility Patient was showing swan neck deformities in both hands involving 2nd 3rd and 4 th fingers Methotrexate started at low dose once weekly Mild to moderate osteoarthritis on right knee xry, started on high dose steroid --to be tapered-was on 50mg.Cont at 30 mg and Taper Advance Directives: Yes VTE prophylaxis: Chemical Plan of care discussed with patient/family who expressed understanding: Yes Subjective Date of service: 05/25/18 Principal diagnosis: copd with exercebation, Pulm HTN Interval history: No new complaint. Short of breath improved. No chest pain. No orthopnea or PND. No fever. Objective - Exam Narrative Exam: Constitutional: On oxygen via nasal cannula to sat of 94-95 on 3 L. In no distress Head: Normocephalic atraumatic Eyes: Pupils are equal round and reactive to light Nose: No enlarged turbinates, no septal deviation. Mouth: Moist mucous membranes. Neck: Supple no thyromegaly. No bruit. No JVD Heart: Regular rate and rhythm, S1-S2 normal. No rubs murmurs or gallop Lungs: Decreased breath sounds bilaterally. no rales or rhonchi Abdomen: Soft, nontender. Bowel sound are present. Extremities: No edema, no cyanosis, no clubbing. Neuro: Alert oriented Oriented x3. No focal sensory or motor deficit. Skin: No rashes or hyperpigmented spots Musculoskeletal system: No joint pain or swelling Hematological: No petechia or subcutanous hemorrhages. Immunological: No multiple septic spots on the skin Lymphatic: No generalized lymphadenopathy Psychiatry: Euthymic. Calm. - Constitutional Vitals: Vital Signs - 12hr 05/25/18 05/25/18 05/25/18 05:31 07:50 08:00 Temperature Pulse Rate 76 Pulse Rate [ 76 77 Anterior Bilateral Throughout] Respiratory Rate Respiratory 18 18 Rate [Anterior Bilateral Throughout] Blood Pressure O2 Sat by Pulse Oximetry 05/25/18 05/25/18 05/25/18 09:01 09:59 10:07 Temperature 97.9 F Pulse Rate 95 H Pulse Rate [ Anterior Bilateral Throughout] Respiratory 18 Rate Respiratory Rate [Anterior Bilateral Throughout] Blood Pressure 131/76 131/76 O2 Sat by Pulse 94 Oximetry 05/25/18 05/25/18 05/25/18 10:09 14:00 14:10 Temperature Pulse Rate 95 H Pulse Rate [ 95 H 95 H Anterior Bilateral Throughout] Respiratory Rate Respiratory 18 18 Rate [Anterior Bilateral Throughout] Blood Pressure 131/75 O2 Sat by Pulse Oximetry 05/25/18 16:47 Temperature Pulse Rate 91 H Pulse Rate [ Anterior Bilateral Throughout] Respiratory Rate Respiratory Rate [Anterior Bilateral Throughout] Blood Pressure 141/66 O2 Sat by Pulse 97 Oximetry - Labs CBC & Chem 7: 05/25/18 05:08 05/25/18 05:08 Labs: Abnormal lab results 05/25/18 05/25/18 Range/Units 05:08 05:08 WBC 11.8 H (4.5-11.0) K/mm3 RBC 3.50 L (3.65-5.03) M/mm3 RDW 17.0 H (13.2-15.2) % Seg Neutrophils % 77.8 H (40.0-70.0) % Seg Neutrophils # 9.2 H (1.8-7.7) K/mm3 BUN 29 H (7-17) mg/dL Glucose 117 H (65-100) mg/dL Total Protein 5.9 L (6.3-8.2) g/dL
[2018-05-25] MEDS: LOVENOX SUB-Q SCH (21:21)
[2018-05-25] MEDS ORDERED: ATIVAN PO SCH (22:00)
[2018-05-26 05:41] LABS: Basophils % (Auto) 0.1 % (0.0-1.8); Eosinophils # (Auto) 0.1 K/mm3 (0.0-0.4); Eosinophils % (Auto) 0.6 % (0.0-4.3); Hematocrit 32.8 % (30.3-42.9); Hemoglobin 10.6 gm/dl (10.1-14.3); Lymphocytes % (Auto) 16.1 % (13.4-35.0); Mean Corpuscular HGB Conc 32 % (30-34); Mean Corpuscular Volume 92 fl (79-97); Monocytes # (Auto) 0.7 K/mm3 (0.0-0.8); Monocytes % (Auto) 5.5 % (0.0-7.3); Platelet Count 198 K/mm3 (140-440); Red Blood Count 3.58 M/mm3 (3.65-5.03); Red Cell Distribution Width 17.1 % (13.2-15.2)
[2018-05-26 06:00] LABS: Alanine Aminotransferase 8 units/L (7-56); Albumin 3.9 g/dL (3.9-5); BUN/Creatinine Ratio 25; Blood Urea Nitrogen 25 mg/dL (7-17); Calcium 9.1 mg/dL (8.4-10.2); Hemolysis Index 16
[2018-05-26] MEDS: K-DUR PO SCH ×2 (06:18→17:29)
[2018-05-26] MEDS: LASIX IV SCH ×2 (06:18→17:28)
[2018-05-26] MEDS: DILAUDID IV PRN ×3 (08:12→17:25)
[2018-05-26] MEDS: DUONEB *Not for PRN Use IH SCH ×3 (08:24→21:17)
[2018-05-26] MEDS: BROVANA NEBU IH SCH ×2 (08:25→21:17)
[2018-05-26] MEDS ORDERED: LEXISCAN IV ONE (09:18)
--- NOTE | 2018-05-26 09:53 | Discharge Summary ---
Providers - Providers Date of Admission: 05/22/18 11:51 Attending physician: ALBERT DIMAS MD 05/22/18 11:45 Consult to Physician [CONS] Stat Comment: Consulting Provider: JAN WHITTEN Physician Instructions: Reason For Exam: chest pain 05/23/18 05:56 Consult to Mental Health [CONS] Routine Reason For Exam: opiate dependence Place consult to:: Mental Health Notified:: Evelyn RN Phone number called:: Ext. [phone] Was contact made?: Yes If yes, spoke with:: [facility] Time called:: 07:44 [facility] Condition: Stable Hospital course: 67-year-old woman, history of COPD, CHF, rheumatoid arthritis, anxiety disorder. Presented to the hospital with chest pain. She is dependent on oxygen at home. She also complained of difficulty breathing. -CT scan was negative for pulmonary embolism, she's been seen by cardiology,she had a lexiscan MPI, it was neg for ischemia -she received IV diuresis -She was seen by psychiatry, her home medications were continued and Ativan was added along with Vistaril. She is recommended to follow up with psychiatry as an outpatient also -she was recommended to fup in pain mgt clinic where she can hopefully be weaned off narcotics and benzos Diagnoses Chest pain Pulmonary hypertension Hypertension acute on chronic systolic CHF, ef 45 Opiate and benzodiazepine dependence Major depression and anxiety Chronic hypoxic respiratory failure Paroxysmal atrial tachycardia COPD Disposition: - TO HOME OR SELFCARE Time spent for discharge: 33 mins Core Measure Documentation - Palliative Care Palliative Care/ Comfort Measures: Not Applicable - Core Measures Any of the following diagnoses?: none Exam - Constitutional Vitals: Temp Pulse Resp BP Pulse Ox 98.5 F 82 18 144/65 97 05/26/18 07:54 05/26/18 08:35 05/26/18 08:35 05/26/18 07:54 05/26/18 08:30 General appearance: Present: no acute distress, well-nourished - EENT Eyes: Present: PERRL ENT: hearing intact, clear oral mucosa - Neck Neck: Present: supple, normal ROM - Respiratory Respiratory effort: normal Respiratory: bilateral: diminished - Cardiovascular Heart Sounds: Present: S1 & S2. Absent: rub, click - Extremities Extremities: pulses symmetrical, No edema Peripheral Pulses: within normal limits - Abdominal General gastrointestinal: Present: soft, non-tender, non-distended, normal bowel sounds Female genitourinary: Present: normal - Integumentary Integumentary: Present: clear, warm, dry - Musculoskeletal Musculoskeletal: gait normal, strength equal bilaterally - Psychiatric Psychiatric: appropriate mood/affect, intact judgment & insight - Neurologic Neurologic: CNII-XII intact, moves all extremities Plan [facility] [Primary Care Provider] - 3-5 Days Prescriptions: LORazepam [Ativan] 0.5 mg PO BID #20 tablet Potassium Chloride [K-Dur] 20 meq PO DAILY #30 tablet Furosemide [Lasix TAB] 40 mg PO QDAY #30 tablet oxyCODONE /ACETAMINOPHEN [Percocet 5/325] 1 tab PO Q6HR PRN #20 tablet PRN Reason: Pain ALBUTEROL NEB's [Proventil 0.083% NEBS] 2.5 mg IH Q4HRT PRN #120 nebu PRN Reason: Shortness Of Breath Tiotropium [place] [Spiriva Respimat] 1 puff IH DAILY #1 mist.inhal Budesonide/Formoterol Fumarate [Symbicort 160-4.5 Mcg Inhaler] 10.2 gm IH BID #1 hfa.aer.ad Albuterol Sulfate [Ventolin Hfa] 2 puff IH Q4H #1 hfa.aer.ad
--- NOTE | 2018-05-26 12:25 | Progress Note ---
Assessment and Plan s/p lexiscan MPI stress test this AM which was negative. Currently stable cardiac status. Chest pain resolved. Pt may discharge home from cardiology standpoint. Recommend follow up in our office with Dr. Hodge within 1-2 weeks of hospital discharge ([phone]). The patient has been seen in conjunction with Dr. Larios who agrees with the assessment and plan of care. - Patient Problems (1) Chest pain Current Visit: Yes Status: Resolved Qualifiers: Chest pain type: other chest pain Qualified Code(s): R07.89 - Other chest pain; R07.8 - Other chest pain (2) Paroxysmal atrial tachycardia Current Visit: Yes Status: Chronic (3) Anxiety Current Visit: Yes Status: Chronic (4) COPD (chronic obstructive pulmonary disease) Current Visit: Yes Status: Chronic (5) Chronic respiratory failure Current Visit: Yes Status: Chronic (6) HTN (hypertension) Current Visit: Yes Status: Chronic Qualifiers: Hypertension type: essential hypertension Qualified Code(s): I10 - Essential (primary) hypertension (7) Hyperlipidemia Current Visit: Yes Status: Chronic Qualifiers: Hyperlipidemia type: mixed hyperlipidemia Qualified Code(s): E78.2 - Mixed hyperlipidemia (8) Rheumatoid arthritis Current Visit: Yes Status: Chronic Qualifiers: Rheumatoid arthritis location: hand (9) Benzodiazepine dependence Current Visit: No Status: Acute (10) Narcotic dependence Current Visit: No Status: Acute Subjective Date of service: 05/26/18 Principal diagnosis: copd with exercebation, Pulm HTN Interval history: pt for stress test, no current complaints. Objective Last Vital Signs Temp 98.5 F 05/26/18 07:54 Pulse 105 H 05/26/18 12:12 Resp 24 05/26/18 10:00 BP 147/77 05/26/18 12:12 Pulse Ox 96 05/26/18 12:12 - Physical Examination General: No Apparent Distress Neck: Positive: neck supple Cardiac: Positive: Reg Rate and Rhythm, S1/S2 Lungs: Positive: Decreased Breath Sounds Neuro: Positive: Grossly Intact Abdomen: Positive: Soft - Labs and Meds Cardiac Enzymes 05/26/18 Range/Units 04:47 AST 12 (5-40) units/L CBC 05/26/18 Range/Units 04:47 WBC 12.4 H (4.5-11.0) K/mm3 RBC 3.58 L (3.65-5.03) M/mm3 Hgb 10.6 (10.1-14.3) gm/dl Hct 32.8 (30.3-42.9) % Plt Count 198 (140-440) K/mm3 Lymph # 2.0 (1.2-5.4) K/mm3 Davidson # 0.7 (0.0-0.8) K/mm3 Eos # 0.1 (0.0-0.4) K/mm3 Baso # 0.0 (0.0-0.1) K/mm3 Comprehensive Metabolic Panel 05/26/18 Range/Units 04:47 Sodium 145 (137-145) mmol/L Potassium 4.2 (3.6-5.0) mmol/L Chloride 101.3 (98-107) mmol/L Carbon Dioxide 32 H (22-30) mmol/L BUN 25 H (7-17) mg/dL Creatinine 1.0 (0.7-1.2) mg/dL Glucose 94 (65-100) mg/dL Calcium 9.1 (8.4-10.2) mg/dL AST 12 (5-40) units/L ALT 8 (7-56) units/L Alkaline Phosphatase 60 (35-129) units/L Total Protein 5.9 L (6.3-8.2) g/dL Albumin 3.9 (3.9-5) g/dL - Imaging and Cardiology EKG: report reviewed (Sinus Tachycardia) Echo: report reviewed ( 01/2018: EF 50-55%, mild to mod LVH, mild TR, RVSP 48mmHg, trivial pericardial effusion. )
[2018-05-26] MEDS: LOPRESSOR PO SCH ×2 (12:55→22:05)
[2018-05-26] MEDS: CARDIZEM CD PO SCH (12:55)
[2018-05-26] MEDS: DELTASONE PO SCH (12:55)
[2018-05-26] MEDS: ZOLOFT PO SCH (12:55)
[2018-05-26] MEDS: ATIVAN PO SCH ×2 (12:55→22:06)
[2018-05-26] MEDS: FOLVITE PO SCH (12:55)
--- NOTE | 2018-05-26 13:26 | Progress Note ---
Subjective - Reason for Consult Consult date: 05/26/18 Reason for consult: Psychiatry Follow-up - Chief Complaint Chief complaint: "I feel better" 67-year-old female who presented to the emergency room for chest pain. This patient is known to me. Psychiatry was consulted for opioid dependence. Today the patient is calm and cooperative during the assessment. She stated that she feel much better. She denies being depressed nor anxious when asked. She stated that she plan to follow up with Dr Pham for outpatient psy services when discharged. She denies SI/HI's and AVH's. She denies any side effects of her medications. Mental Status Exam - Vital signs Last Vital Signs Temp 98.5 F 05/26/18 07:54 Pulse 105 H 05/26/18 12:12 Resp 22 05/26/18 12:59 BP 147/77 05/26/18 12:12 Pulse Ox 96 05/26/18 12:12 - Exam Narrative exam: MSE: Appearance: calm, cooperative Behavior: regular eye contact Speech: regular rate and tone Mood: "well" Affect: congruent to mood Thought Process: logical Thought Content: denies SI/HI's and AVH's Motor Activity: sitting up in bed Cognition: A/O x3 Insight: appropriate Judgment: appropriate Assessment and Plan Impression: MDD, BRYAN, and Opioid Use Disorder. Today the patient is calm and cooperative during the assessment. Recommendation/Plan: Continue Zoloft 100 mg PO daily for depression/anxiety and modified Trazodone to 50 mg PO HS for sleep. Start Ativan taper 1 mg PO BID day one, Ativan 0.5 mg PO BID day 2, and Ativan 0.5 mg PO once day 3. Start Vistaril 25 mg PO TID for anxiety once the Ativan taper is complete. Discussed possible suicidality/medication induced kandi with the patient reference antidepressants. Recommend not to give benzos and opioids concurrently. Psy sign off. Dispo: The patient can follow up with her psychiatrist Dr Pham for outpatient psy services once discharged. . Will staff with Dr Flower Lyles.
[2018-05-26] MEDS ORDERED: PERCOCET 5/325 PO PRN (18:25)
--- NOTE | 2018-05-26 21:38 | Treadmill Report ---
NUCLEAR CARDIAC IMAGING INDICATION FOR PROCEDURE: Chest pain. Informed consent was obtained. Vasodilator stress was achieved with the intravenous administration of 0.4 mg of Lexiscan per protocol. Rest and stress nuclear cardiac imaging were performed following the intravenous administration of 10 and 28 mCi of technetium 99m Myoview per protocol. Images were acquired in a 180-degree arc from 45 degrees FLORES to 45 degrees LPO. After data acquisition and reconstruction, the images were processed and reoriented into the vertical long, horizontal long, and horizontal short axis slices. A polar color map of the horizontal short axis slices was generated and reviewed. The rotating planar images reviewed in cinematic format on the computer console. Gated SPECT imaging demonstrates a post-stress left ventricular ejection fraction of 72% with normal wall motion. Myocardial perfusion imaging demonstrates no significant cavity change between stress and rest. No significant stress induced perfusion defects are seen. Nuclear cardiac imaging demonstrates grossly normal post-stress left ventricular systolic function with no significant evidence of myocardial ischemia or necrosis. JOB# [id number] GHASSAN/SUSAN
[2018-05-26] MEDS: LOVENOX SUB-Q SCH (22:06)
[2018-05-26] MEDS: DESYREL PO SCH (22:06)
[2018-05-27 05:53] LABS: Basophils % (Auto) 0.2 % (0.0-1.8); Eosinophils % (Auto) 0.2 % (0.0-4.3); Hematocrit 33.2 % (30.3-42.9); Hemoglobin 10.9 gm/dl (10.1-14.3); Lymphocytes # (Auto) 1.2 K/mm3 (1.2-5.4); Lymphocytes % (Auto) 11.6 % (13.4-35.0); Mean Corpuscular HGB Conc 33 % (30-34); Mean Corpuscular Volume 91 fl (79-97); Monocytes # (Auto) 0.6 K/mm3 (0.0-0.8); Monocytes % (Auto) 5.2 % (0.0-7.3); Platelet Count 191 K/mm3 (140-440); Red Blood Count 3.65 M/mm3 (3.65-5.03); Red Cell Distribution Width 17.1 % (13.2-15.2)
[2018-05-27 06:20] LABS: Alanine Aminotransferase 9 units/L (7-56); BUN/Creatinine Ratio 24; Blood Urea Nitrogen 24 mg/dL (7-17); Calcium 8.8 mg/dL (8.4-10.2); Hemolysis Index 25
[2018-05-27] MEDS: DUONEB *Not for PRN Use IH SCH (07:42)
[2018-05-27] MEDS: BROVANA NEBU IH SCH (07:42)
[2018-05-27] MEDS: LASIX IV SCH (09:10)
[2018-05-27] MEDS: CARDIZEM CD PO SCH (09:10)
[2018-05-27] MEDS: FOLVITE PO SCH (09:10)
[2018-05-27] MEDS: DELTASONE PO SCH (09:10)
[2018-05-27] MEDS: K-DUR PO SCH (09:10)
[2018-05-27] MEDS: ZOLOFT PO SCH (09:26)
[2018-05-27] MEDS: LOPRESSOR PO SCH (09:26)
[2018-05-27 10:30] VITALS: BP 144/71
--- NOTE | 2018-05-27 11:22 | Progress Note ---
Assessment and Plan Assessment and plan: 67-year-old woman, history of COPD, CHF, rheumatoid arthritis, anxiety disorder. Presented to the hospital with chest pain. She is dependent on oxygen at home. She also complained of difficulty breathing. -CT scan was negative for pulmonary embolism, she's been seen by cardiology,she had a lexiscan MPI, results showed -she received IV diuresis -She was seen by psychiatry, her home medications were continued and Ativan was added along with Vistaril. She is recommended to follow up with psychiatry as an outpatient also Diagnoses Chest pain Pulmonary hypertension Hypertension acute on chronic systolic CHF, EF 45% Opiate and benzodiazepine dependence Major depression and anxiety Chronic hypoxic respiratory failure Paroxysmal atrial tachycardia COPD Disposition: DC- TO HOME OR SELFCARE Time spent for discharge: 33 mins History Interval history: no cp, no sob no vomiting no fever, no chills no vomiting c/o chronic gen pain and anxiety Hospitalist Physical - Constitutional Vitals: Temp Pulse Resp BP Pulse Ox 98.1 F 84 18 144/71 95 05/27/18 08:07 05/27/18 07:43 05/27/18 08:07 05/27/18 08:07 05/27/18 09:45 General appearance: Present: no acute distress, well-nourished - EENT Eyes: Present: PERRL ENT: hearing intact - Neck Neck: Present: supple - Respiratory Respiratory: bilateral: CTA - Cardiovascular Heart Sounds: Present: S1 & S2 - Extremities Extremities: no ischemia - Abdominal General gastrointestinal: soft, non-tender - Integumentary Integumentary: Present: clear, warm, dry - Psychiatric Psychiatric: appropriate mood/affect, intact judgment & insight - Neurologic Neurologic: CNII-XII intact, no focal deficits, moves all extremities Results - Labs CBC & Chem 7: 05/27/18 04:59 05/27/18 04:59 Labs: Laboratory Last Values WBC 10.7 K/mm3 (4.5-11.0) 05/27/18 04:59 RBC 3.65 M/mm3 (3.65-5.03) 05/27/18 04:59 Hgb 10.9 gm/dl (10.1-14.3) 05/27/18 04:59 Hct 33.2 % (30.3-42.9) 05/27/18 04:59 MCV 91 fl (79-97) 05/27/18 04:59 MCH 30 pg (28-32) 05/27/18 04:59 MCHC 33 % (30-34) 05/27/18 04:59 RDW 17.1 % (13.2-15.2) H 05/27/18 04:59 Plt Count 191 K/mm3 (140-440) 05/27/18 04:59 Lymph % (Auto) 11.6 % (13.4-35.0) L 05/27/18 04:59 Travis % (Auto) 5.2 % (0.0-7.3) 05/27/18 04:59 Eos % (Auto) 0.2 % (0.0-4.3) 05/27/18 04:59 Baso % (Auto) 0.2 % (0.0-1.8) 05/27/18 04:59 Lymph # 1.2 K/mm3 (1.2-5.4) 05/27/18 04:59 Travis # 0.6 K/mm3 (0.0-0.8) 05/27/18 04:59 Eos # 0.0 K/mm3 (0.0-0.4) 05/27/18 04:59 Baso # 0.0 K/mm3 (0.0-0.1) 05/27/18 04:59 Seg Neutrophils % 82.8 % (40.0-70.0) H 05/27/18 04:59 Seg Neutrophils # 8.9 K/mm3 (1.8-7.7) H 05/27/18 04:59 PT 13.0 Sec. (12.2-14.9) 05/22/18 10:57 INR 0.93 (0.87-1.13) 05/22/18 10:57 APTT 22.4 Sec. (24.2-36.6) L 05/22/18 10:57 D-Dimer 309.59 ng/mlDDU (0-234) H 05/22/18 19:54 POC ABG pH 7.446 (7.35-7.45) 05/22/18 20:38 POC ABG pCO2 44.0 (35-45) 05/22/18 20:38 POC ABG pO2 81 (80-105) 05/22/18 20:38 POC ABG HCO3 30.3 (22-26 mml/L) 05/22/18 20:38 POC ABG Total CO2 32 (23-27mmol/L) 05/22/18 20:38 POC ABG O2 Sat 96 05/22/18 20:38 POC ABG Base Excess 6 ((-2) - (+3)mmol/L) 05/22/18 20:38 FiO2 28 % 05/22/18 20:38 Sodium 138 mmol/L (137-145) 05/27/18 04:59 Potassium 4.0 mmol/L (3.6-5.0) 05/27/18 04:59 Chloride 97.8 mmol/L (98-107) L 05/27/18 04:59 Carbon Dioxide 31 mmol/L (22-30) H 05/27/18 04:59 Anion Gap 13 mmol/L 05/27/18 04:59 BUN 24 mg/dL (7-17) H 05/27/18 04:59 Creatinine 1.0 mg/dL (0.7-1.2) 05/27/18 04:59 Estimated GFR > 60 ml/min 05/27/18 04:59 BUN/Creatinine Ratio 24 % 05/27/18 04:59 Glucose 117 mg/dL (65-100) H 05/27/18 04:59 POC Glucose 119 (70-105) H 05/25/18 21:14 Calcium 8.8 mg/dL (8.4-10.2) 05/27/18 04:59 Total Bilirubin 0.20 mg/dL (0.1-1.2) 05/27/18 04:59 AST 13 units/L (5-40) 05/27/18 04:59 ALT 9 units/L (7-56) 05/27/18 04:59 Alkaline Phosphatase 63 units/L (35-129) 05/27/18 04:59 Troponin T < 0.010 ng/mL (0.00-0.029) 05/22/18 14:46 NT-Pro-B Natriuret Pep 738.5 pg/mL (0-900) 05/22/18 10:57 Total Protein 6.1 g/dL (6.3-8.2) L 05/27/18 04:59 Albumin 4.0 g/dL (3.9-5) 05/27/18 04:59 Albumin/Globulin Ratio 1.9 % 05/27/18 04:59 Active Medications - Current Medications Current Medications: Generic Name Dose Route Start Last Admin Trade Name Freq PRN Reason Stop Dose Admin Albuterol 2.5 mg 05/22/18 20:44 05/24/18 09:43 Proventil IH 2.5 mg Q4HRT PRN Administration Shortness Of Breath Arformoterol Tartrate 15 mcg 05/24/18 20:00 05/27/18 07:42 Brovana Nebu IH 15 mcg Q12HRT ANGELES Administration Clonidine HCl 0.2 mg 05/29/18 10:00 Catapres-Tts Patch TD Fr ANGELES Diltiazem HCl 240 mg 05/22/18 20:30 05/27/18 09:10 Cardizem Cd PO 240 mg QDAY ANGELES Administration Enoxaparin Sodium 40 mg 05/23/18 22:00 05/26/18 22:06 Lovenox SUB-Q 40 mg QDAY@2200 ANGELES Administration Folic Acid 1 mg 05/22/18 21:00 05/27/18 09:10 Folvite PO 1 mg DAILY ANGELES Administration Furosemide 40 mg 05/23/18 06:00 05/27/18 09:10 Lasix IV 40 mg 0600,1800 ANGELES Administration Hydralazine HCl 5 mg 05/22/18 20:27 05/23/18 04:52 Apresoline IV 5 mg Q6HR PRN Administration Hypertension Methotrexate 10 mg 05/23/18 10:00 05/23/18 12:24 Methotrexate (Dose Weekly Only) PO Not Given Sa ANGELES Metoprolol Tartrate 25 mg 05/22/18 22:00 05/27/18 09:26 Lopressor PO 25 mg BID ANGELES Administration Oxycodone/Acetaminophen 1 tab 05/26/18 18:25 05/26/18 22:05 Percocet 5/325 PO 1 tab Q6H PRN Administration Pain, Moderate (4-6) Potassium Chloride 20 meq 05/23/18 02:00 05/27/18 09:10 K-Dur PO 20 meq Q12HR@0600,1800 ANGELES Administration Prednisone 30 mg 05/23/18 10:00 05/27/18 09:10 Deltasone PO 30 mg QDAY ANGELES Administration Sertraline HCl 100 mg 05/22/18 21:00 05/27/18 09:26 Zoloft PO 100 mg DAILY ANGELES Administration Trazodone HCl 50 mg 05/25/18 22:00 05/26/18 22:06 Desyrel PO 50 mg QHS ANGELES Administration Nutrition/Malnutrition Assess - Dietary Evaluation Nutrition/Malnutrition Findings: Nutrition Notes Start: 05/23/18 13:58 Freq: Status: Active Protocol: Document 05/24/18 12:56 OL (Rec: 05/24/18 12:58 OL [id number]) Nutrition Notes Initial or Follow up Brief Note Current Diagnosis Heart Failure Other Pertinent Diagnosis opiate dependence, depression Current Diet cardiac Labs/Tests Reviewed Pertinent Medications Reviewed Height 5 ft 5 in Weight 82.1 kg [place] Body Weight (kg) 56.81 BMI 30.1 Subjective/Other Information Pt. reports good appetite/ intake prior to admission. 75% of meals consumed yesterday. Pt. up in bed eating lunch at time of visit. Pt. notes nausea in the morning; zofran effective with symptom management. Pt. reports potential weight gain with increased appetite but is unsure of body wt. Pt. requesting diet coke with dinner. Malnutrition note noted at this time Nutrition Intervention Revisit per MD consult or patient Sign Off request:
[2018-05-29] MEDS ORDERED: CATAPRES-TTS PATCH TD SCH (10:00)
== END 2018-05-27 12:30 | disposition home or self-care (01) | DRG 190 ==
LOC: ED 09:27 → 4A 11:51
PROVIDERS: ADMIT Internal Medicine; ATTEND Internal Medicine
PROC: 4A033R1 Measurement of Arterial Saturation, Peripheral, Percutaneous Approach (ICD-10-PCS; principal; 2018-05-22)
DX: J44.1 Chronic obstructive pulmonary disease with (acute) exacerbation (principal); I50.43 Acute on chronic combined systolic (congestive) and diastolic (congestive) heart failure; J96.10 Chronic respiratory failure, unspecified whether with hypoxia or hypercapnia; F11.20 Opioid dependence, uncomplicated; F13.20 Sedative, hypnotic or anxiolytic dependence, uncomplicated; I47.1 Supraventricular tachycardia; I11.0 Hypertensive heart disease with heart failure; I27.20 Pulmonary hypertension, unspecified; K21.9 Gastro-esophageal reflux disease without esophagitis; M19.90 Unspecified osteoarthritis, unspecified site; G89.29 Other chronic pain; M54.9 Dorsalgia, unspecified; M06.9 Rheumatoid arthritis, unspecified; M95.3 Acquired deformity of neck; M17.11 Unilateral primary osteoarthritis, right knee; F32.9 Major depressive disorder, single episode, unspecified; F41.1 Generalized anxiety disorder; E78.2 Mixed hyperlipidemia; Z99.81 Dependence on supplemental oxygen; Z87.891 Personal history of nicotine dependence
CPT/HCPCS: 36415; 36600; 71045; 71275; 78452; 80048; 80053; 82803; 82962; 83880; 84484; 85025; 85379; 85610; 85730; 93005; 93010; 93017; 93306; 94640; 94760; 96374; G0378; A9502; J0360; J1170; J1650; J1940; J2060; J2785; J7512; J8610; Q0177; Q9967

== ENCOUNTER 2018-05-30 04:29 | Inpatient (IN) | payer MEDICARE ==
[2018-05-30] MEDS ORDERED: NACL 0.9% 1000 ML 1,000 ML IV ONE (06:15)
[2018-05-30] MEDS ORDERED: ZOFRAN ONE (06:18)
--- NOTE | 2018-05-30 06:48 | Emergency Department Report ---
ED Chest Pain HPI - General Chief Complaint: Anxiety Stated Complaint: ANXIETY Time Seen by Provider: 05/30/18 06:14 Source: patient, EMS Mode of arrival: Stretcher Limitations: No Limitations - History of Present Illness Initial Comments: This is a 67-year-old female with poly-pharmacy dependency. She is stating to me that she wants to go to a facility to be detoxed off Suboxone. She states that she has been on it for years. According to the records she had an episode of anxiety last night and took 3 mg of Ativan prior to arrival. She was just r eleased from this facility after a workup for chest pain. She also complains of recurrent chest pain at this time. She admits that she has chest pain frequently. This time it involves the right side of her chest. She states it is associated with chest wall tenderness. She also states that she has been having wheezing. She is on home O2. She is not on CPAP at night. Both 19 discharge summary: Hospitalization Condition: Stable Hospital course: 67-year-old woman, history of COPD, CHF, rheumatoid arthritis, anxiety disorder. Presented to the hospital with chest pain. She is dependent on oxygen at home. She also complained of difficulty breathing. -CT scan was negative for pulmonary embolism, she's been seen by cardiology,she had a lexiscan MPI, it was neg for ischemia -she received IV diuresis -She was seen by psychiatry, her home medications were continued and Ativan was added along with Vistaril. She is recommended to follow up with psychiatry as an outpatient also -she was recommended to fup in pain mgt clinic where she can hopefully be weaned off narcotics and benzos Diagnoses Chest pain Pulmonary hypertension Hypertension acute on chronic systolic CHF, ef 45 Opiate and benzodiazepine dependence Major depression and anxiety Chronic hypoxic respiratory failure Paroxysmal atrial tachycardia COPD MD Complaint: chest pain -: hour(s) Onset: during rest Pain Location: left chest Pain Radiation: none Severity: moderate Quality: aching Consistency: intermittent Improves With: nothing Worsens With: nothing Context: other (chronic pain syndrome) re: denies: nausea, vomting, diaphoresis, dyspnea Other Symptoms: denies: cough, fever, syncope Treatments Prior to Arrival: other (believe took her own Ativan) Aspirin use within the Past 7 Days: (0) No - Related Data Home Medications Medication Instructions Recorded Confirmed Last Taken Amlodipine Besylate [Norvasc] 10 mg PO DAILY 05/22/18 05/22/18 Unknown Buprenorphine HCl/Naloxone HCl 1 film SL DAILY 05/22/18 05/22/18 Unknown [Suboxone 8 mg-2 mg SL Film] Diltiazem HCl [Diltiazem ER] 240 mg PO DAILY 05/22/18 05/22/18 Unknown Folic Acid [Folvite] 1 mg PO DAILY 05/22/18 05/22/18 Unknown LORazepam [Ativan] 1 mg PO TID 05/22/18 05/22/18 05/22/18 Sertraline [Zoloft] 100 mg PO DAILY 05/22/18 05/22/18 Unknown cloNIDine-TTS PATCH [Catapres-Tts 0.2 mg TD QWEEK 05/22/18 05/22/18 Unknown Patch] oxyCODONE 20 mg PO Q6HR PRN 05/22/18 05/22/18 05/15/18 traZODone [Desyrel] 50 mg PO DAILY 05/22/18 05/22/18 Unknown Previous Rx's Medication Instructions Recorded Last Taken Type predniSONE [Prednisone] 50 mg PO DAILY #7 tablet 03/05/18 Unknown Rx Metoprolol [Lopressor TAB] 25 mg PO BID tablet 03/21/18 Unknown Rx hydrOXYzine PAMOATE [Vistaril] 50 mg PO Q6H PRN #90 capsule 03/21/18 Unknown Rx ALBUTEROL NEB's [Proventil 0.083% 2.5 mg IH Q4HRT PRN #120 nebu 05/26/18 Unknown Rx NEBS] Albuterol Sulfate [Ventolin Hfa] 2 puff IH Q4H #1 hfa.aer.ad 05/26/18 Unknown Rx Budesonide/Formoterol Fumarate 10.2 gm IH BID #1 hfa.aer.ad 05/26/18 Unknown Rx [Symbicort 160-4.5 Mcg Inhaler] Furosemide [Lasix TAB] 40 mg PO QDAY #30 tablet 05/26/18 Unknown Rx LORazepam [Ativan] 0.5 mg PO BID #20 tablet 05/26/18 Unknown Rx Potassium Chloride [K-Dur] 20 meq PO DAILY #30 tablet 05/26/18 Unknown Rx Tiotropium [place] [Spiriva 1 puff IH DAILY #1 mist.inhal 05/26/18 Unknown Rx Respimat] oxyCODONE /ACETAMINOPHEN [Percocet 1 tab PO Q6HR PRN #20 tablet 05/26/18 Unknown Rx 5/325] Allergies Allergy/AdvReac Type Severity Reaction Status Date / Time No Known Allergies Allergy Verified 05/22/18 09:54 Heart Score - HEART Score History: Slightly suspicious EKG: Normal Age: > 65 Risk factors: 1-2 risk factors Troponin: < normal limit HEART Score: 3 - Critical Actions Critical Actions: 0-3 pts:0.9-1.7%risk of adverse cardiac event.Candidate for discharge ED Review of Systems ROS: Stated complaint: ANXIETY Other details as noted in HPI Constitutional: denies: chills, fever Eyes: denies: eye pain, eye discharge, vision change ENT: denies: ear pain, throat pain Respiratory: denies: cough, shortness of breath, wheezing Cardiovascular: chest pain. denies: palpitations Endocrine: no symptoms reported Gastrointestinal: denies: abdominal pain, nausea, diarrhea Genitourinary: denies: urgency, dysuria, discharge Musculoskeletal: denies: back pain, joint swelling, arthralgia Skin: denies: rash, lesions Neurological: denies: headache, weakness, paresthesias Psychiatric: anxiety. denies: depression Hematological/Lymphatic: denies: easy bleeding, easy bruising ED Past Medical Hx - Past Medical History Previous Medical History?: Yes Hx Hypertension: Yes Hx Heart Attack/AMI: No Hx Congestive Heart Failure: Yes Hx Deep Vein Thrombosis: No Hx Pulmonary Embolism: No Hx GERD: Yes Hx Arthritis: Yes Hx Asthma: No Hx COPD: Yes Hx Tuberculosis: No Additional medical history: chronic back pain - Surgical History Past Surgical History?: Yes Hx Coronary Stent: No Hx Pacemaker: No Hx Internal Defibrillator: No Additional Surgical History: hernia repair and lower back/ cycst removal - Social History Smoking Status: Never Smoker Substance Use Type: Prescribed - Medications Home Medications: Home Medications Medication Instructions Recorded Confirmed Last Taken Type predniSONE [Prednisone] 50 mg PO DAILY #7 tablet 03/05/18 05/22/18 Unknown Rx Metoprolol [Lopressor TAB] 25 mg PO BID tablet 03/21/18 05/22/18 Unknown Rx hydrOXYzine PAMOATE [Vistaril] 50 mg PO Q6H PRN #90 capsule 03/21/18 05/22/18 Unknown Rx Amlodipine Besylate [Norvasc] 10 mg PO DAILY 05/22/18 05/22/18 Unknown History Buprenorphine HCl/Naloxone HCl 1 film SL DAILY 05/22/18 05/22/18 Unknown History [Suboxone 8 mg-2 mg SL Film] Diltiazem HCl [Diltiazem ER] 240 mg PO DAILY 05/22/18 05/22/18 Unknown History Folic Acid [Folvite] 1 mg PO DAILY 05/22/18 05/22/18 Unknown History LORazepam [Ativan] 1 mg PO TID 05/22/18 05/22/18 05/22/18 History Sertraline [Zoloft] 100 mg PO DAILY 05/22/18 05/22/18 Unknown History cloNIDine-TTS PATCH [Catapres-Tts 0.2 mg TD QWEEK 05/22/18 05/22/18 Unknown History Patch] oxyCODONE 20 mg PO Q6HR PRN 05/22/18 05/22/18 05/15/18 History traZODone [Desyrel] 50 mg PO DAILY 05/22/18 05/22/18 Unknown History ALBUTEROL NEB's [Proventil 0.083% 2.5 mg IH Q4HRT PRN #120 nebu 05/26/18 Unknown Rx NEBS] Albuterol Sulfate [Ventolin Hfa] 2 puff IH Q4H #1 hfa.aer.ad 05/26/18 Unknown Rx Budesonide/Formoterol Fumarate 10.2 gm IH BID #1 hfa.aer.ad 05/26/18 Unknown Rx [Symbicort 160-4.5 Mcg Inhaler] Furosemide [Lasix TAB] 40 mg PO QDAY #30 tablet 05/26/18 Unknown Rx LORazepam [Ativan] 0.5 mg PO BID #20 tablet 05/26/18 Unknown Rx Potassium Chloride [K-Dur] 20 meq PO DAILY #30 tablet 05/26/18 Unknown Rx Tiotropium [place] [Spiriva 1 puff IH DAILY #1 mist.inhal 05/26/18 Unknown Rx Respimat] oxyCODONE /ACETAMINOPHEN [Percocet 1 tab PO Q6HR PRN #20 tablet 05/26/18 Unknown Rx 5/325] ED Physical Exam - General Limitations: No Limitations General appearance: alert, in no apparent distress, anxious - Head Head exam: Present: atraumatic, normocephalic - Eye Eye exam: Present: normal appearance. Absent: scleral icterus - ENT ENT exam: Present: mucous membranes moist - Neck Neck exam: Present: normal inspection - Respiratory Respiratory exam: Present: normal lung sounds bilaterally. Absent: respiratory distress - Cardiovascular Cardiovascular Exam: Present: normal rhythm, tachycardia. Absent: systolic murmur, diastolic murmur, rubs, gallop - GI/Abdominal GI/Abdominal exam: Present: soft, normal bowel sounds. Absent: distended, tenderness, guarding, rebound, rigid - Extremities Exam Extremities exam: Present: normal inspection, pedal edema. Absent: calf tenderness - Back Exam Back exam: Present: normal inspection - Neurological Exam Neurological exam: Present: alert, oriented X3, CN II-XII intact. Absent: motor sensory deficit - Psychiatric Psychiatric exam: Present: normal affect, normal mood - Skin Skin exam: Present: warm, dry, intact, normal color. Absent: rash ED Course Vital Signs 05/30/18 05/30/18 05/30/18 05:34 05:46 06:00 Pulse Rate 98 H 93 H 122 H Pulse Rate [ Anterior Bilateral Throughout] Respiratory 15 12 13 Rate Respiratory Rate [Anterior Bilateral Throughout] Blood Pressure 135/80 O2 Sat by Pulse 98 96 Oximetry 05/30/18 05/30/18 05/30/18 06:16 06:30 06:42 Pulse Rate 98 H 92 H Pulse Rate [ Anterior Bilateral Throughout] Respiratory 18 14 16 Rate Respiratory Rate [Anterior Bilateral Throughout] Blood Pressure 135/80 135/80 O2 Sat by Pulse 99 97 100 Oximetry 05/30/18 05/30/18 05/30/18 06:46 07:00 07:16 Pulse Rate 108 H 93 H 90 Pulse Rate [ Anterior Bilateral Throughout] Respiratory 8 L 9 L 13 Rate Respiratory Rate [Anterior Bilateral Throughout] Blood Pressure 135/80 141/83 141/83 O2 Sat by Pulse 98 97 99 Oximetry 05/30/18 05/30/18 05/30/18 07:30 07:46 08:00 Pulse Rate 91 H 92 H 106 H Pulse Rate [ Anterior Bilateral Throughout] Respiratory 12 11 L 15 Rate Respiratory Rate [Anterior Bilateral Throughout] Blood Pressure 141/83 141/83 141/84 O2 Sat by Pulse 99 99 97 Oximetry 05/30/18 05/30/18 05/30/18 08:16 08:30 08:46 Pulse Rate 96 H 116 H 100 H Pulse Rate [ Anterior Bilateral Throughout] Respiratory 14 11 L 13 Rate Respiratory Rate [Anterior Bilateral Throughout] Blood Pressure 141/84 141/84 141/84 O2 Sat by Pulse 99 97 97 Oximetry 05/30/18 05/30/18 09:04 09:38 Pulse Rate Pulse Rate [ 117 H 109 H Anterior Bilateral Throughout] Respiratory Rate Respiratory 25 H 22 Rate [Anterior Bilateral Throughout] Blood Pressure O2 Sat by Pulse Oximetry - Reevaluation(s) Reevaluation #1: Discussed with alcohol counselors. They determined that the patient does not require placement for inpatient services. 05/30/18 08:16 Reevaluation #2: Patient was given 2 nebs. She has some persistent tachycardia. Her PCO2 was in the 50s. She was given Solu-Medrol and magnesium. She maintain her oxygen saturation. Psychiatric evaluation. It didn't appear necessary to bring her in the hospital for her acute exacerbation of COPD with hypercapnic respiratory failure as well as case management issues. 05/30/18 09:58 JORDANA score - Jordana Score Age > 65: (1) Yes Aspirin use within the Past 7 Days: (0) No 3 or more CAD Risk Factors: (1) Yes 2 or more Angina events in past 24 hrs: (1) Yes Known CAD with more than 50% Stenosis: (0) No Elevated Cardiac Markers: (0) No ST Deviation Greater than 0.5mm: (0) No JORDANA Score: 3 ED Medical Decision Making - Lab Data Result diagrams: 05/30/18 06:26 05/30/18 06:26 Laboratory Results - last 24 hr 05/30/18 05/30/18 05/30/18 06:26 06:26 06:26 WBC 10.6 RBC 4.22 Hgb 12.6 Hct 38.4 MCV 91 MCH 30 MCHC 33 RDW 17.0 H Plt Count 192 Lymph % (Auto) 16.7 [place] % (Auto) 7.8 H Eos % (Auto) 0.9 Baso % (Auto) 0.3 Lymph # 1.8 [place] # 0.8 Eos # 0.1 Baso # 0.0 Seg Neutrophils % 74.3 H Seg Neutrophils # 7.8 H PT INR APTT D-Dimer Sodium 145 D Potassium 4.4 Chloride 100.7 Carbon Dioxide 29 Anion Gap 20 BUN 24 H Creatinine 1.3 H Estimated GFR 49 BUN/Creatinine Ratio 18 Glucose 102 H Calcium 9.4 Magnesium Total Bilirubin Direct Bilirubin Indirect Bilirubin AST ALT Alkaline Phosphatase Total Creatine Kinase CK-MB (CK-2) CK-MB (CK-2) Rel Index NT-Pro-B Natriuret Pep Total Protein Albumin Albumin/Globulin Ratio TSH 1.470 Plasma/Serum Alcohol 05/30/18 05/30/18 05/30/18 06:26 06:26 06:26 WBC RBC Hgb Hct MCV MCH MCHC RDW Plt Count Lymph % (Auto) [place] % (Auto) Eos % (Auto) Baso % (Auto) Lymph # [place] # Eos # Baso # Seg Neutrophils % Seg Neutrophils # PT INR APTT D-Dimer Sodium Potassium Chloride Carbon Dioxide Anion Gap BUN Creatinine Estimated GFR BUN/Creatinine Ratio Glucose Calcium Magnesium 2.40 H Total Bilirubin 0.30 Direct Bilirubin < 0.2 Indirect Bilirubin 0.1 AST 13 ALT 9 Alkaline Phosphatase 60 Total Creatine Kinase 104 CK-MB (CK-2) 2.3 CK-MB (CK-2) Rel Index 2.2 NT-Pro-B Natriuret Pep Total Protein 5.9 L Albumin 4.2 Albumin/Globulin Ratio 2.5 TSH Plasma/Serum Alcohol < 0.01 05/30/18 05/30/18 06:46 06:46 WBC RBC Hgb Hct MCV MCH MCHC RDW Plt Count Lymph % (Auto) [place] % (Auto) Eos % (Auto) Baso % (Auto) Lymph # [place] # Eos # Baso # Seg Neutrophils % Seg Neutrophils # PT 12.5 INR 0.88 APTT 25.2 D-Dimer 212.51 Sodium Potassium Chloride Carbon Dioxide Anion Gap BUN Creatinine Estimated GFR BUN/Creatinine Ratio Glucose Calcium Magnesium Total Bilirubin Direct Bilirubin Indirect Bilirubin AST ALT Alkaline Phosphatase Total Creatine Kinase CK-MB (CK-2) CK-MB (CK-2) Rel Index NT-Pro-B Natriuret Pep 315.0 Total Protein Albumin Albumin/Globulin Ratio TSH Plasma/Serum Alcohol Laboratory Results - last 24 hr 05/30/18 05/30/18 05/30/18 06:26 06:26 06:26 WBC 10.6 RBC 4.22 Hgb 12.6 Hct 38.4 MCV 91 MCH 30 MCHC 33 RDW 17.0 H Plt Count 192 Lymph % (Auto) 16.7 [place] % (Auto) 7.8 H Eos % (Auto) 0.9 Baso % (Auto) 0.3 Lymph # 1.8 [place] # 0.8 Eos # 0.1 Baso # 0.0 Seg Neutrophils % 74.3 H Seg Neutrophils # 7.8 H PT INR APTT D-Dimer POC ABG pH POC ABG pCO2 POC ABG pO2 POC ABG HCO3 POC ABG Total CO2 POC ABG O2 Sat POC ABG Base Excess FiO2 Sodium 145 D Potassium 4.4 Chloride 100.7 Carbon Dioxide 29 Anion Gap 20 BUN 24 H Creatinine 1.3 H Estimated GFR 49 BUN/Creatinine Ratio 18 Glucose 102 H Lactic Acid Calcium 9.4 Magnesium Total Bilirubin Direct Bilirubin Indirect Bilirubin AST ALT Alkaline Phosphatase Total Creatine Kinase CK-MB (CK-2) CK-MB (CK-2) Rel Index NT-Pro-B Natriuret Pep Total Protein Albumin Albumin/Globulin Ratio TSH 1.470 Urine Color Urine Turbidity Urine pH Ur Specific [place] Urine Protein Urine Glucose (UA) Urine Ketones Urine Blood Urine Nitrite Urine Bilirubin Urine Urobilinogen Ur Leukocyte Esterase Urine WBC (Auto) Urine RBC (Auto) U Epithel Cells (Auto) Urine Bacteria (Auto) Hyaline Casts Urine Mucus Urine Opiates Screen Urine Methadone Screen Ur Barbiturates Screen Ur Phencyclidine Scrn Ur Amphetamines Screen U Benzodiazepines Scrn Urine Cocaine Screen U Marijuana (THC) Screen Drugs of Abuse Note Plasma/Serum Alcohol 05/30/18 05/30/18 05/30/18 06:26 06:26 06:26 WBC RBC Hgb Hct MCV MCH MCHC RDW Plt Count Lymph % (Auto) [place] % (Auto) Eos % (Auto) Baso % (Auto) Lymph # [place] # Eos # Baso # Seg Neutrophils % Seg Neutrophils # PT INR APTT D-Dimer POC ABG pH POC ABG pCO2 POC ABG pO2 POC ABG HCO3 POC ABG Total CO2 POC ABG O2 Sat POC ABG Base Excess FiO2 Sodium Potassium Chloride Carbon Dioxide Anion Gap BUN Creatinine Estimated GFR BUN/Creatinine Ratio Glucose Lactic Acid Calcium Magnesium 2.40 H Total Bilirubin 0.30 Direct Bilirubin < 0.2 Indirect Bilirubin 0.1 AST 13 ALT 9 Alkaline Phosphatase 60 Total Creatine Kinase 104 CK-MB (CK-2) 2.3 CK-MB (CK-2) Rel Index 2.2 NT-Pro-B Natriuret Pep Total Protein 5.9 L Albumin 4.2 Albumin/Globulin Ratio 2.5 TSH Urine Color Urine Turbidity Urine pH Ur Specific [place] Urine Protein Urine Glucose (UA) Urine Ketones Urine Blood Urine Nitrite Urine Bilirubin Urine Urobilinogen Ur Leukocyte Esterase Urine WBC (Auto) Urine RBC (Auto) U Epithel Cells (Auto) Urine Bacteria (Auto) Hyaline Casts Urine Mucus Urine Opiates Screen Urine Methadone Screen Ur Barbiturates Screen Ur Phencyclidine Scrn Ur Amphetamines Screen U Benzodiazepines Scrn Urine Cocaine Screen U Marijuana (THC) Screen Drugs of Abuse Note Plasma/Serum Alcohol < 0.01 05/30/18 05/30/18 05/30/18 06:46 06:46 07:57 WBC RBC Hgb Hct MCV MCH MCHC RDW Plt Count Lymph % (Auto) [place] % (Auto) Eos % (Auto) Baso % (Auto) Lymph # [place] # Eos # Baso # Seg Neutrophils % Seg Neutrophils # PT 12.5 INR 0.88 APTT 25.2 D-Dimer 212.51 POC ABG pH POC ABG pCO2 POC ABG pO2 POC ABG HCO3 POC ABG Total CO2 POC ABG O2 Sat POC ABG Base Excess FiO2 Sodium Potassium Chloride Carbon Dioxide Anion Gap BUN Creatinine Estimated GFR BUN/Creatinine Ratio Glucose Lactic Acid Calcium Magnesium Total Bilirubin Direct Bilirubin Indirect Bilirubin AST ALT Alkaline Phosphatase Total Creatine Kinase CK-MB (CK-2) CK-MB (CK-2) Rel Index NT-Pro-B Natriuret Pep 315.0 Total Protein Albumin Albumin/Globulin Ratio TSH Urine Color Yellow Urine Turbidity Clear Urine pH 5.0 Ur Specific [place] 1.032 H Urine Protein 30 mg/dl Urine Glucose (UA) Neg Urine Ketones Neg Urine Blood Neg Urine Nitrite Neg Urine Bilirubin Neg Urine Urobilinogen 2.0 Ur Leukocyte Esterase Mod Urine WBC (Auto) 7.0 H Urine RBC (Auto) 2.0 U Epithel Cells (Auto) 1.0 Urine Bacteria (Auto) 1+ Hyaline Casts 29 Urine Mucus Few Urine Opiates Screen Urine Methadone Screen Ur Barbiturates Screen Ur Phencyclidine Scrn Ur Amphetamines Screen U Benzodiazepines Scrn Urine Cocaine Screen U Marijuana (THC) Screen Drugs of Abuse Note Plasma/Serum Alcohol 05/30/18 05/30/18 05/30/18 07:57 08:34 09:01 WBC RBC Hgb Hct MCV MCH MCHC RDW Plt Count Lymph % (Auto) [place] % (Auto) Eos % (Auto) Baso % (Auto) Lymph # [place] # Eos # Baso # Seg Neutrophils % Seg Neutrophils # PT INR APTT D-Dimer POC ABG pH 7.397 POC ABG pCO2 51.9 H POC ABG pO2 110 H POC ABG HCO3 32.0 POC ABG Total CO2 34 POC ABG O2 Sat 98 POC ABG Base Excess 7 FiO2 28 Sodium Potassium Chloride Carbon Dioxide Anion Gap BUN Creatinine Estimated GFR BUN/Creatinine Ratio Glucose Lactic Acid 0.90 Calcium Magnesium Total Bilirubin Direct Bilirubin Indirect Bilirubin AST ALT Alkaline Phosphatase Total Creatine Kinase CK-MB (CK-2) CK-MB (CK-2) Rel Index NT-Pro-B Natriuret Pep Total Protein Albumin Albumin/Globulin Ratio TSH Urine Color Urine Turbidity Urine pH Ur Specific [place] Urine Protein Urine Glucose (UA) Urine Ketones Urine Blood Urine Nitrite Urine Bilirubin Urine Urobilinogen Ur Leukocyte Esterase Urine WBC (Auto) Urine RBC (Auto) U Epithel Cells (Auto) Urine Bacteria (Auto) Hyaline Casts Urine Mucus Urine Opiates Screen Presumptive negative Urine Methadone Screen Presumptive negative Ur Barbiturates Screen Presumptive negative Ur Phencyclidine Scrn Presumptive negative Ur Amphetamines Screen Presumptive negative U Benzodiazepines Scrn Presumptive negative Urine Cocaine Screen Presumptive negative U Marijuana (THC) Screen Presumptive negative Drugs of Abuse Note Disclamer Plasma/Serum Alcohol - Radiology Data Radiology results: report reviewed (chest x-ray no acute process) Critical care attestation.: If time is entered above; I have spent that time in minutes in the direct care of this critically ill patient, excluding procedure time. ED Disposition Clinical Impression: COPD exacerbation, CO2 retention, Atypical chest pain, Chronic narcotic dependence Disposition: OP ADMIT IP TO THIS HOSP Is pt being admited?: Yes Does the pt Need Aspirin: Yes Condition: Stable Instructions: Chronic Obstructive Pulmonary Disease (ED), Chest Pain (ED) Referrals: HARPREET DUMAS MD [Primary Care Provider] - 3-5 Days Time of Disposition: 10:01
[2018-05-30 06:55] LABS: Alanine Aminotransferase 9 units/L (7-56); Albumin 4.2 g/dL (3.9-5)
[2018-05-30 06:58] LABS: Calcium 9.4 mg/dL (8.4-10.2)
[2018-05-30 06:59] LABS: Creatine Kinase MB 2.3 ng/mL (0.0-4.0)
[2018-05-30 07:06] LABS: Basophils % (Auto) 0.3 % (0.0-1.8); Eosinophils # (Auto) 0.1 K/mm3 (0.0-0.4); Eosinophils % (Auto) 0.9 % (0.0-4.3); Hematocrit 38.4 % (30.3-42.9); Hemoglobin 12.6 gm/dl (10.1-14.3); Lymphocytes # (Auto) 1.8 K/mm3 (1.2-5.4); Lymphocytes % (Auto) 16.7 % (13.4-35.0); Mean Corpuscular HGB Conc 33 % (30-34); Mean Corpuscular Volume 91 fl (79-97); Monocytes # (Auto) 0.8 K/mm3 (0.0-0.8); Monocytes % (Auto) 7.8 % (0.0-7.3); Platelet Count 192 K/mm3 (140-440); Red Blood Count 4.22 M/mm3 (3.65-5.03)
[2018-05-30 07:07] LABS: Bilirubin,Direct < 0.2 mg/dL (0-0.2)
[2018-05-30 07:12] LABS: INR 0.88 (0.87-1.13)
[2018-05-30 07:13] LABS: Partial Thromboplastin Time 25.2 Sec. (24.2-36.6)
[2018-05-30] MEDS ORDERED: ZOFRAN IV ONE (07:24)
--- NOTE | 2018-05-30 07:24 | XRay Report ---
PROCEDURE: XR CHEST 1V AP TECHNIQUE: Chest radiograph single view. HISTORY: Chest pain COMPARISONS: 05/22/2018 . FINDINGS: Heart: Normal. Mediastinum/Vessels: Normal. Lungs/Pleural space: Normal. Bony thorax: No acute osseous abnormality. Life support devices: None. IMPRESSION: No acute cardiopulmonary abnormality. This document is electronically signed by Bjorn Mcintyre MD., May 30 2018 07:21:54 AM ET
[2018-05-30 08:52] LABS: Bacteria,Urine 1+ /HPF (Negative); Bilirubin,Urine NEG (Negative); Blood,Urine NEG (Negative); Color,Urine Yellow (Yellow); Hyaline Casts,Urine 29 /LPF; Mucus,Urine FEW /HPF
[2018-05-30 09:01] LABS: Amphetamine Screen,Urine PRESUMPTIVE NEGATIVE; Benzodiazepines Screen,Urine PRESUMPTIVE NEGATIVE; Cannabinoid Screen,Urine PRESUMPTIVE NEGATIVE; Cocaine Screen,Urine PRESUMPTIVE NEGATIVE; Methadone Screen,Urine PRESUMPTIVE NEGATIVE; Opiate Screen,Urine PRESUMPTIVE NEGATIVE
[2018-05-30] MEDS ORDERED: DUONEB *Not for PRN Use IH ONE ×2 (09:02→09:03)
[2018-05-30] MEDS ORDERED: MAGNESIUM SULFATE 2GM/50ML 2 GM/50 ML BAG IV ONE ×2 (09:55→11:01)
[2018-05-30] MEDS ORDERED: SOLU-Medrol IV ONE (09:55)
[2018-05-30] MEDS ORDERED: ASPIRIN PO ONE (10:01)
[2018-05-30] MEDS ORDERED: SOLU-Medrol ONE (11:00)
[2018-05-30] MEDS ORDERED: ASPIRIN ONE (11:01)
--- NOTE | 2018-05-30 12:13 | History and Physical Report ---
History of Present Illness Date of examination: 05/30/18 Date of admission: 05/30/18 10:01 Chief complaint: asthma History of present illness: 67-year-old female who presents to the emergency department with significant past medical history of moderate to severe pulmonary hypertension, chronic respiratory failure, COPD, hypertension, hyperlipidemia, benzodiazepine and opioid dependence and rheumatoid arthritis complaining of chest pain. The patient was recently admitted here and discharged on 05/27/18 with complaints of chest pain at that time. The patient underwent studies including CT scan that was negative for PE and Lexiscan that was negative for ischemia. Patient was also seen by cardiology in consultation. Patient presents to the ER with similar complaints now associated with hypercapnic respiratory failure (PCO2 52). Patient denies any fever or chills. No cough or cold symptoms. No headache or visual disturbances. No nausea, vomiting or diarrhea. Past History Past Medical History: COPD, hypertension, hyperlipidemia, other (rheumatoid arthritis, paroxysmal atrial tachycardia) Past Surgical History: No surgical history Social history: other (benzodiazepine and opioid dependence) Family history: no significant family history Medications and Allergies Allergies Allergy/AdvReac Type Severity Reaction Status Date / Time No Known Allergies Allergy Verified 05/22/18 09:54 Home Medications Medication Instructions Recorded Confirmed Last Taken Type predniSONE [Prednisone] 50 mg PO DAILY #7 tablet 03/05/18 05/30/18 1 Day Ago Rx ~05/29/18 Amlodipine Besylate [Norvasc] 10 mg PO DAILY 05/22/18 05/30/18 1 Day Ago History ~05/29/18 Buprenorphine HCl/Naloxone HCl 1 film SL DAILY 05/22/18 05/30/18 1 Day Ago History [Suboxone 8 mg-2 mg SL Film] ~05/29/18 cloNIDine-TTS PATCH [Catapres-Tts 0.2 mg TD QWEEK 05/22/18 05/30/18 1 Day Ago History Patch] ~05/29/18 ALBUTEROL NEB's [Proventil 0.083% 2.5 mg IH Q4HRT PRN #120 nebu 05/26/18 05/30/18 1 Day Ago Rx NEBS] ~05/29/18 Albuterol Sulfate [Ventolin Hfa] 2 puff IH Q4H #1 hfa.aer.ad 05/26/18 05/30/18 1 Day Ago Rx ~05/29/18 Budesonide/Formoterol Fumarate 10.2 gm IH BID #1 hfa.aer.ad 05/26/18 05/30/18 1 Day Ago Rx [Symbicort 160-4.5 Mcg Inhaler] ~05/29/18 Furosemide [Lasix TAB] 40 mg PO QDAY #30 tablet 05/26/18 05/30/18 1 Day Ago Rx ~05/29/18 LORazepam [Ativan] 0.5 mg PO BID #20 tablet 05/26/18 05/30/18 1 Day Ago Rx ~05/29/18 Potassium Chloride [K-Dur] 20 meq PO DAILY #30 tablet 05/26/18 05/30/18 1 Day Ago Rx ~05/29/18 Tiotropium [place] [Spiriva 1 puff IH DAILY #1 mist.inhal 05/26/18 05/30/18 1 Day Ago Rx Respimat] ~05/29/18 Active Meds: Active Medications Sodium Chloride (Nacl 0.9% 1000 Ml) 1,000 mls @ 125 mls/hr IV ONCE ONE Stop: 05/30/18 14:14 Last Admin: 05/30/18 06:26 Dose: 125 mls/hr Documented by: Review of Systems All systems: negative Exam - Constitutional Vitals: Temp Pulse Resp BP Pulse Ox 130 H 22 155/85 96 05/30/18 10:30 05/30/18 10:30 05/30/18 10:46 05/30/18 10:46 General appearance: Present: no acute distress, well-nourished - EENT Eyes: Present: PERRL ENT: hearing intact, clear oral mucosa - Neck Neck: Present: supple, normal ROM - Respiratory Respiratory effort: normal Respiratory: bilateral: diminished, wheezing - Cardiovascular Heart Sounds: Present: S1 & S2. Absent: rub, click - Extremities Extremities: pulses symmetrical, No edema Peripheral Pulses: within normal limits - Abdominal General gastrointestinal: Present: soft, non-tender, non-distended, normal bowel sounds Female genitourinary: Present: normal - Integumentary Integumentary: Present: clear, warm, dry - Musculoskeletal Musculoskeletal: gait normal, strength equal bilaterally - Psychiatric Psychiatric: appropriate mood/affect, intact judgment & insight - Neurologic Neurologic: CNII-XII intact, moves all extremities Results - Labs CBC & Chem 7: 05/30/18 06:26 05/30/18 06:26 Labs: Laboratory Last Values WBC 10.6 K/mm3 (4.5-11.0) 05/30/18 06:26 RBC 4.22 M/mm3 (3.65-5.03) 05/30/18 06:26 Hgb 12.6 gm/dl (10.1-14.3) 05/30/18 06:26 Hct 38.4 % (30.3-42.9) 05/30/18 06:26 MCV 91 fl (79-97) 05/30/18 06:26 MCH 30 pg (28-32) 05/30/18 06:26 MCHC 33 % (30-34) 05/30/18 06:26 RDW 17.0 % (13.2-15.2) H 05/30/18 06:26 Plt Count 192 K/mm3 (140-440) 05/30/18 06:26 Lymph % (Auto) 16.7 % (13.4-35.0) 05/30/18 06:26 [place] % (Auto) 7.8 % (0.0-7.3) H 05/30/18 06:26 Eos % (Auto) 0.9 % (0.0-4.3) 05/30/18 06:26 Baso % (Auto) 0.3 % (0.0-1.8) 05/30/18 06:26 Lymph # 1.8 K/mm3 (1.2-5.4) 05/30/18 06:26 [place] # 0.8 K/mm3 (0.0-0.8) 05/30/18 06:26 Eos # 0.1 K/mm3 (0.0-0.4) 05/30/18 06:26 Baso # 0.0 K/mm3 (0.0-0.1) 05/30/18 06:26 Seg Neutrophils % 74.3 % (40.0-70.0) H 05/30/18 06:26 Seg Neutrophils # 7.8 K/mm3 (1.8-7.7) H 05/30/18 06:26 PT 12.5 Sec. (12.2-14.9) 05/30/18 06:46 INR 0.88 (0.87-1.13) 05/30/18 06:46 APTT 25.2 Sec. (24.2-36.6) 05/30/18 06:46 D-Dimer 212.51 ng/mlDDU (0-234) 05/30/18 06:46 POC ABG pH 7.397 (7.35-7.45) 05/30/18 09:01 POC ABG pCO2 51.9 (35-45) H 05/30/18 09:01 POC ABG pO2 110 (80-105) H 05/30/18 09:01 POC ABG HCO3 32.0 (22-26 mml/L) 05/30/18 09:01 POC ABG Total CO2 34 (23-27mmol/L) 05/30/18 09:01 POC ABG O2 Sat 98 05/30/18 09:01 POC ABG Base Excess 7 ((-2) - (+3)mmol/L) 05/30/18 09:01 FiO2 28 % 05/30/18 09:01 Sodium 145 mmol/L (137-145) D 05/30/18 06:26 Potassium 4.4 mmol/L (3.6-5.0) 05/30/18 06:26 Chloride 100.7 mmol/L (98-107) 05/30/18 06:26 Carbon Dioxide 29 mmol/L (22-30) 05/30/18 06:26 Anion Gap 20 mmol/L 05/30/18 06:26 BUN 24 mg/dL (7-17) H 05/30/18 06:26 Creatinine 1.3 mg/dL (0.7-1.2) H 05/30/18 06:26 Estimated GFR 49 ml/min 05/30/18 06:26 BUN/Creatinine Ratio 18 % 05/30/18 06:26 Glucose 102 mg/dL (65-100) H 05/30/18 06:26 Lactic Acid 0.90 mmol/L (0.7-2.0) 05/30/18 08:34 Calcium 9.4 mg/dL (8.4-10.2) 05/30/18 06:26 Magnesium 2.40 mg/dL (1.7-2.3) H 05/30/18 06:26 Total Bilirubin 0.30 mg/dL (0.1-1.2) 05/30/18 06:26 Direct Bilirubin < 0.2 mg/dL (0-0.2) 05/30/18 06:26 Indirect Bilirubin 0.1 mg/dL 05/30/18 06:26 AST 13 units/L (5-40) 05/30/18 06:26 ALT 9 units/L (7-56) 05/30/18 06:26 Alkaline Phosphatase 60 units/L (35-129) 05/30/18 06:26 Total Creatine Kinase 104 units/L (30-135) 05/30/18 06:26 CK-MB (CK-2) 2.3 ng/mL (0.0-4.0) 05/30/18 06:26 CK-MB (CK-2) Rel Index 2.2 (0-4) 05/30/18 06:26 NT-Pro-B Natriuret Pep 315.0 pg/mL (0-900) 05/30/18 06:46 Total Protein 5.9 g/dL (6.3-8.2) L 05/30/18 06:26 Albumin 4.2 g/dL (3.9-5) 05/30/18 06:26 Albumin/Globulin Ratio 2.5 % 05/30/18 06:26 TSH 1.470 mlU/mL (0.270-4.200) 05/30/18 06:26 Urine Color Yellow (Yellow) 05/30/18 07:57 Urine Turbidity Clear (Clear) 05/30/18 07:57 Urine pH 5.0 (5.0-7.0) 05/30/18 07:57 Ur Specific [place] 1.032 (1.003-1.030) H 05/30/18 07:57 Urine Protein 30 mg/dl mg/dL (Negative) 05/30/18 07:57 Urine Glucose (UA) Neg mg/dL (Negative) 05/30/18 07:57 Urine Ketones Neg mg/dL (Negative) 05/30/18 07:57 Urine Blood Neg (Negative) 05/30/18 07:57 Urine Nitrite Neg (Negative) 05/30/18 07:57 Urine Bilirubin Neg (Negative) 05/30/18 07:57 Urine Urobilinogen 2.0 mg/dL (<2.0) 05/30/18 07:57 Ur Leukocyte Esterase Mod (Negative) 05/30/18 07:57 Urine WBC (Auto) 7.0 /HPF (0.0-6.0) H 05/30/18 07:57 Urine RBC (Auto) 2.0 /HPF (0.0-6.0) 05/30/18 07:57 U Epithel Cells (Auto) 1.0 /HPF (0-13.0) 05/30/18 07:57 Urine Bacteria (Auto) 1+ /HPF (Negative) 05/30/18 07:57 Hyaline Casts 29 /LPF 05/30/18 07:57 Urine Mucus Few /HPF 05/30/18 07:57 Urine Opiates Screen Presumptive negative 05/30/18 07:57 Urine Methadone Screen Presumptive negative 05/30/18 07:57 Ur Barbiturates Screen Presumptive negative 05/30/18 07:57 Ur Phencyclidine Scrn Presumptive negative 05/30/18 07:57 Ur Amphetamines Screen Presumptive negative 05/30/18 07:57 U Benzodiazepines Scrn Presumptive negative 05/30/18 07:57 Urine Cocaine Screen Presumptive negative 05/30/18 07:57 U Marijuana (THC) Screen Presumptive negative 05/30/18 07:57 Drugs of Abuse Note Disclamer 05/30/18 07:57 Plasma/Serum Alcohol < 0.01 % (0-0.07) 05/30/18 06:26 Assessment and Plan Assessment and plan: Atypical chest pain. Recent with negative CT for PE and Lexiscan on recent hospitalization. Consult cardiology. Patient may need further evaluation with cath. Acute COPD exacerbation. Patient will be treated with IV steroids, bronchodilators/nebulizers Pulmonary hypertension. Chronic systolic heart failure, compensated. EF 45%. Opiate and benzodiazepine dependence. Outpatient follow-up. Major depression and anxiety. Follow up as an outpatient. Paroxysmal atrial tachycardia. Hypertension. Resume antihypertensive medications. Rheumatoid arthritis. Continue current medications.
[2018-05-30] MEDS ORDERED: PROVENTIL IH PRN (12:16)
[2018-05-30] MEDS ORDERED: XANAX PO ONE (15:04)
[2018-05-30] MEDS: DUONEB *Not for PRN Use IH SCH ×2 (15:39→21:01)
[2018-05-30] MEDS: SOLU-Medrol IV SCH (20:30)
[2018-05-30] MEDS: ZOFRAN IV PRN (20:30)
[2018-05-30] MEDS: TYLENOL PO PRN (20:32)
[2018-05-30] MEDS: ATIVAN PO SCH (21:12)
[2018-05-30] MEDS: LOVENOX SUB-Q SCH (21:12)
[2018-05-30] MEDS: SODIUM CHLORIDE FLUSH SYRINGE 10 ML IV SCH (21:15)
[2018-05-31] MEDS: SOLU-Medrol IV SCH ×3 (01:47→17:51)
[2018-05-31] MEDS ORDERED: ATIVAN PO PRN (03:00)
[2018-05-31] MEDS: ROXICODONE PO PRN ×4 (03:11→20:01)
[2018-05-31] MEDS: DUONEB *Not for PRN Use IH SCH ×4 (03:30→21:07)
[2018-05-31 06:00] LABS: Hemoglobin 11.8 gm/dl (10.1-14.3); Mean Corpuscular HGB Conc 33 % (30-34); Mean Corpuscular Volume 91 fl (79-97); Platelet Count 178 K/mm3 (140-440); Red Blood Count 3.95 M/mm3 (3.65-5.03); Red Cell Distribution Width 17.3 % (13.2-15.2)
[2018-05-31 06:27] LABS: Calcium 9.4 mg/dL (8.4-10.2)
[2018-05-31] MEDS ORDERED: DUONEB *Not for PRN Use IH ONE (08:19)
[2018-05-31] MEDS: ATIVAN PO SCH ×2 (09:17→21:41)
[2018-05-31] MEDS: SODIUM CHLORIDE FLUSH SYRINGE 10 ML IV SCH ×2 (09:17→21:41)
--- NOTE | 2018-05-31 10:35 | Consultation ---
History of Present Illness Consult date: 05/31/18 History of present illness: anxious no cp chronic sob Past History Past Medical History: COPD, hypertension, hyperlipidemia, other (rheumatoid arthritis, paroxysmal atrial tachycardia) Past Surgical History: No surgical history Social history: other (benzodiazepine and opioid dependence) Family history: no significant family history Medications and Allergies Allergies Allergy/AdvReac Type Severity Reaction Status Date / Time No Known Allergies Allergy Verified 05/22/18 09:54 Home Medications Medication Instructions Recorded Confirmed Last Taken Type predniSONE [Prednisone] 50 mg PO DAILY #7 tablet 03/05/18 05/30/18 1 Day Ago Rx ~05/29/18 Amlodipine Besylate [Norvasc] 10 mg PO DAILY 05/22/18 05/30/18 1 Day Ago History ~05/29/18 Buprenorphine HCl/Naloxone HCl 1 film SL DAILY 05/22/18 05/30/18 1 Day Ago History [Suboxone 8 mg-2 mg SL Film] ~05/29/18 cloNIDine-TTS PATCH [Catapres-Tts 0.2 mg TD QWEEK 05/22/18 05/30/18 1 Day Ago History Patch] ~05/29/18 ALBUTEROL NEB's [Proventil 0.083% 2.5 mg IH Q4HRT PRN #120 nebu 05/26/18 0 05/30/18 1 Day Ago Rx NEBS] ~05/29/18 Albuterol Sulfate [Ventolin Hfa] 2 puff IH Q4H #1 hfa.aer.ad 05/26/18 05/30/18 1 Day Ago Rx ~05/29/18 Budesonide/Formoterol Fumarate 10.2 gm IH BID #1 hfa.aer.ad 05/26/18 05/30/18 1 Day Ago Rx [Symbicort 160-4.5 Mcg Inhaler] ~05/29/18 Furosemide [Lasix TAB] 40 mg PO QDAY #30 tablet 05/26/18 05/30/18 1 Day Ago Rx ~05/29/18 LORazepam [Ativan] 0.5 mg PO BID #20 tablet 05/26/18 05/30/18 1 Day Ago Rx ~05/29/18 Potassium Chloride [K-Dur] 20 meq PO DAILY #30 tablet 05/26/18 05/30/18 1 Day Ago Rx ~05/29/18 Tiotropium [place] [Spiriva 1 puff IH DAILY #1 mist.inhal 05/26/18 05/30/18 1 Day Ago Rx Respimat] ~05/29/18 Active Meds: Active Medications Acetaminophen (Tylenol) 650 mg PO Q4H PRN PRN Reason: Pain MILD(1-3)/Fever >100.5/AMOR Last Admin: 05/30/18 20:32 Dose: 650 mg Documented by: Albuterol (Proventil) 2.5 mg IH Q4HRT PRN PRN Reason: Shortness Of Breath Albuterol/Ipratropium (Duoneb *Not For Prn Use*) 1 ampul IH Q6HRT [facility] Last Admin: 05/31/18 08:23 Dose: Not Given Documented by: Enoxaparin Sodium (Lovenox) 40 mg SUB-Q QDAY@2200 [facility] Last Admin: 05/30/18 21:12 Dose: 40 mg Documented by: Lorazepam (Ativan) 0.5 mg PO BID [facility] Last Admin: 05/31/18 09:17 Dose: 0.5 mg Documented by: Lorazepam (Ativan) 0.5 mg PO Q6H PRN PRN Reason: Agitation Last Admin: 05/31/18 03:15 Dose: 0.5 mg Documented by: Methylprednisolone Sodium Succinate (Solu-Medrol) 80 mg IV Q8H [facility] Last Admin: 05/31/18 01:47 Dose: 80 mg Documented by: Ondansetron HCl (Zofran) 4 mg IV Q8H PRN PRN Reason: Nausea And Vomiting Last Admin: 05/30/18 20:30 Dose: 4 mg Documented by: Oxycodone HCl (Roxicodone) 15 mg PO Q6H PRN PRN Reason: Pain, Moderate (4-6) Last Admin: 05/31/18 09:18 Dose: 15 mg Documented by: Sodium Chloride (Sodium Chloride Flush Syringe 10 Ml) 10 ml IV BID [facility] Last Admin: 05/31/18 09:17 Dose: 10 ml Documented by: Sodium Chloride (Sodium Chloride Flush Syringe 10 Ml) 10 ml IV PRN PRN PRN Reason: LINE FLUSH Physical Examination Vital Signs Pulse Resp 98 H 15 05/30/18 05:34 05/30/18 05:34 Results 05/31/18 05:20 05/31/18 05:20 CBC 05/31/18 Range/Units 05:20 WBC 10.1 (4.5-11.0) K/mm3 RBC 3.95 (3.65-5.03) M/mm3 Hgb 11.8 (10.1-14.3) gm/dl Hct 36.0 (30.3-42.9) % Plt Count 178 (140-440) K/mm3 Comprehensive Metabolic Panel 05/31/18 Range/Units 05:20 Sodium 143 (137-145) mmol/L Potassium 5.0 (3.6-5.0) mmol/L Chloride 100.8 (98-107) mmol/L Carbon Dioxide 28 (22-30) mmol/L BUN 37 H (7-17) mg/dL Creatinine 1.2 (0.7-1.2) mg/dL Glucose 153 H (65-100) mg/dL Calcium 9.4 (8.4-10.2) mg/dL Assessment and Plan seen and examined appears to be in opioid/benzo withdrawl cp-free at this time ecg - st - no st changes tele - sr/st add asa recent hospitalization reviewed once w/d and resp status stable, will consider cath for recurrent cp discussed w/ Dr. Luna - Patient Problems (1) Atypical chest pain Current Visit: Yes Status: Acute (2) CO2 retention Current Visit: Yes Status: Acute (3) COPD exacerbation Current Visit: Yes Status: Acute (4) Chronic narcotic dependence Current Visit: Yes Status: Acute (5) Benzodiazepine dependence Current Visit: No Status: Acute (6) Depression Current Visit: No Status: Acute (7) Narcotic dependence Current Visit: No Status: Acute (8) Opioid withdrawal delirium, acute, hyperactive Current Visit: No Status: Acute (9) Rheumatoid arthritis Current Visit: No Status: Acute (10) Tobacco abuse Current Visit: No Status: Acute (11) Anxiety Current Visit: No Status: Chronic (12) Chronic low back pain Current Visit: No Status: Chronic Qualifiers: Back pain laterality: midline Sciatica presence: without sciatica Qualified Code(s): M54.5 - Low back pain; G89.29 - Other chronic pain (13) HTN (hypertension) Current Visit: No Status: Chronic Qualifiers: Hypertension type: essential hypertension Qualified Code(s): I10 - Essential (primary) hypertension (14) Pulmonary hypertension, moderate to severe Current Visit: No Status: Chronic
[2018-05-31] MEDS ORDERED: ATIVAN IV PRN ×2 (10:52)
--- NOTE | 2018-05-31 10:55 | Progress Note ---
Assessment and Plan Assessment and plan: Atypical chest pain. Recent with negative CT for PE and Lexiscan on recent hospitalization. Consult cardiology. Patient may need further evaluation with cath. Acute COPD exacerbation. Patient will be treated with IV steroids, bronchodilators/nebulizers Pulmonary hypertension. Chronic systolic heart failure, compensated. EF 45%. Opiate and benzodiazepine dependence. [facility] protocol initiated Major depression and anxiety. Psychiatry consultation Paroxysmal atrial tachycardia. Hypertension. Resume antihypertensive medications. Rheumatoid arthritis. Continue current medications. History Interval history: Patient appears anxious. However, she denies chest pain Hospitalist Physical - Constitutional Vitals: Temp Pulse Resp BP Pulse Ox 98.6 F 82 22 153/84 97 05/31/18 08:16 05/31/18 08:30 05/31/18 09:18 05/31/18 08:16 05/31/18 09:52 General appearance: Present: no acute distress, well-nourished - EENT Eyes: Present: PERRL, EOM intact ENT: hearing intact, clear oral mucosa, dentition normal - Neck Neck: Present: supple, normal ROM - Respiratory Respiratory effort: normal Respiratory: bilateral: CTA - Cardiovascular Rhythm: regular Heart Sounds: Present: S1 & S2. Absent: gallop, rub - Extremities Extremities: no ischemia, No edema, Full ROM - Abdominal General gastrointestinal: soft, non-tender, non-distended, normal bowel sounds - Integumentary Integumentary: Present: clear, warm, dry - Neurologic Neurologic: CNII-XII intact, moves all extremities Results - Labs CBC & Chem 7: 05/31/18 05:20 05/31/18 05:20 Labs: Laboratory Last Values WBC 10.1 K/mm3 (4.5-11.0) 05/31/18 05:20 RBC 3.95 M/mm3 (3.65-5.03) 05/31/18 05:20 Hgb 11.8 gm/dl (10.1-14.3) 05/31/18 05:20 Hct 36.0 % (30.3-42.9) 05/31/18 05:20 MCV 91 fl (79-97) 05/31/18 05:20 MCH 30 pg (28-32) 05/31/18 05:20 MCHC 33 % (30-34) 05/31/18 05:20 RDW 17.3 % (13.2-15.2) H 05/31/18 05:20 Plt Count 178 K/mm3 (140-440) 05/31/18 05:20 Lymph % (Auto) 16.7 % (13.4-35.0) 05/30/18 06:26 [place] % (Auto) 7.8 % (0.0-7.3) H 05/30/18 06:26 Eos % (Auto) 0.9 % (0.0-4.3) 05/30/18 06:26 Baso % (Auto) 0.3 % (0.0-1.8) 05/30/18 06:26 Lymph # 1.8 K/mm3 (1.2-5.4) 05/30/18 06:26 [place] # 0.8 K/mm3 (0.0-0.8) 05/30/18 06:26 Eos # 0.1 K/mm3 (0.0-0.4) 05/30/18 06:26 Baso # 0.0 K/mm3 (0.0-0.1) 05/30/18 06:26 Seg Neutrophils % [employer] 05/31/18 05:20 Seg Neutrophils # 7.8 K/mm3 (1.8-7.7) H 05/30/18 06:26 PT 12.5 Sec. (12.2-14.9) 05/30/18 06:46 INR 0.88 (0.87-1.13) 05/30/18 06:46 APTT 25.2 Sec. (24.2-36.6) 05/30/18 06:46 D-Dimer 212.51 ng/mlDDU (0-234) 05/30/18 06:46 POC ABG pH 7.397 (7.35-7.45) 05/30/18 09:01 POC ABG pCO2 51.9 (35-45) H 05/30/18 09:01 POC ABG pO2 110 (80-105) H 05/30/18 09:01 POC ABG HCO3 32.0 (22-26 mml/L) 05/30/18 09:01 POC ABG Total CO2 34 (23-27mmol/L) 05/30/18 09:01 POC ABG O2 Sat 98 05/30/18 09:01 POC ABG Base Excess 7 ((-2) - (+3)mmol/L) 05/30/18 09:01 FiO2 28 % 05/30/18 09:01 Sodium 143 mmol/L (137-145) 05/31/18 05:20 Potassium 5.0 mmol/L (3.6-5.0) 05/31/18 05:20 Chloride 100.8 mmol/L (98-107) 05/31/18 05:20 Carbon Dioxide 28 mmol/L (22-30) 05/31/18 05:20 Anion Gap 19 mmol/L 05/31/18 05:20 BUN 37 mg/dL (7-17) H 05/31/18 05:20 Creatinine 1.2 mg/dL (0.7-1.2) 05/31/18 05:20 Estimated GFR 54 ml/min 05/31/18 05:20 BUN/Creatinine Ratio 31 % 05/31/18 05:20 Glucose 153 mg/dL (65-100) H 05/31/18 05:20 Lactic Acid 0.90 mmol/L (0.7-2.0) 05/30/18 08:34 Calcium 9.4 mg/dL (8.4-10.2) 05/31/18 05:20 Magnesium 2.40 mg/dL (1.7-2.3) H 05/30/18 06:26 Total Bilirubin 0.30 mg/dL (0.1-1.2) 05/30/18 06:26 Direct Bilirubin < 0.2 mg/dL (0-0.2) 05/30/18 06:26 Indirect Bilirubin 0.1 mg/dL 05/30/18 06:26 AST 13 units/L (5-40) 05/30/18 06:26 ALT 9 units/L (7-56) 05/30/18 06:26 Alkaline Phosphatase 60 units/L (35-129) 05/30/18 06:26 Total Creatine Kinase 104 units/L (30-135) 05/30/18 06:26 CK-MB (CK-2) 2.3 ng/mL (0.0-4.0) 05/30/18 06:26 CK-MB (CK-2) Rel Index 2.2 (0-4) 05/30/18 06:26 NT-Pro-B Natriuret Pep 315.0 pg/mL (0-900) 05/30/18 06:46 Total Protein 5.9 g/dL (6.3-8.2) L 05/30/18 06:26 Albumin 4.2 g/dL (3.9-5) 05/30/18 06:26 Albumin/Globulin Ratio 2.5 % 05/30/18 06:26 TSH 1.470 mlU/mL (0.270-4.200) 05/30/18 06:26 Urine Color Yellow (Yellow) 05/30/18 07:57 Urine Turbidity Clear (Clear) 05/30/18 07:57 Urine pH 5.0 (5.0-7.0) 05/30/18 07:57 Ur Specific [place] 1.032 (1.003-1.030) H 05/30/18 07:57 Urine Protein 30 mg/dl mg/dL (Negative) 05/30/18 07:57 Urine Glucose (UA) Neg mg/dL (Negative) 05/30/18 07:57 Urine Ketones Neg mg/dL (Negative) 05/30/18 07:57 Urine Blood Neg (Negative) 05/30/18 07:57 Urine Nitrite Neg (Negative) 05/30/18 07:57 Urine Bilirubin Neg (Negative) 05/30/18 07:57 Urine Urobilinogen 2.0 mg/dL (<2.0) 05/30/18 07:57 Ur Leukocyte Esterase Mod (Negative) 05/30/18 07:57 Urine WBC (Auto) 7.0 /HPF (0.0-6.0) H 05/30/18 07:57 Urine RBC (Auto) 2.0 /HPF (0.0-6.0) 05/30/18 07:57 U Epithel Cells (Auto) 1.0 /HPF (0-13.0) 05/30/18 07:57 Urine Bacteria (Auto) 1+ /HPF (Negative) 05/30/18 07:57 Hyaline Casts 29 /LPF 05/30/18 07:57 Urine Mucus Few /HPF 05/30/18 07:57 Urine Opiates Screen Presumptive negative 05/30/18 07:57 Urine Methadone Screen Presumptive negative 05/30/18 07:57 Ur Barbiturates Screen Presumptive negative 05/30/18 07:57 Ur Phencyclidine Scrn Presumptive negative 05/30/18 07:57 Ur Amphetamines Screen Presumptive negative 05/30/18 07:57 U Benzodiazepines Scrn Presumptive negative 05/30/18 07:57 Urine Cocaine Screen Presumptive negative 05/30/18 07:57 U Marijuana (THC) Screen Presumptive negative 05/30/18 07:57 Drugs of Abuse Note Disclamer 05/30/18 07:57 Plasma/Serum Alcohol < 0.01 % (0-0.07) 05/30/18 06:26 Active Medications - Current Medications Current Medications: Generic Name Dose Route Start Last Admin Trade Name Freq PRN Reason Stop Dose Admin Acetaminophen 650 mg 05/30/18 12:16 05/30/18 20:32 Tylenol PO 650 mg Q4H PRN Administration Pain MILD(1-3)/Fever >100.5/AMOR Albuterol 2.5 mg 05/30/18 12:16 Proventil IH Q4HRT PRN Shortness Of Breath Albuterol/Ipratropium 1 ampul 05/30/18 14:00 05/31/18 08:23 Duoneb *Not For Prn Use* IH Not Given Q6HRT [facility] Aspirin 81 mg 05/31/18 11:00 Halfprin Ec PO QDAY [facility] Enoxaparin Sodium 40 mg 05/30/18 22:00 05/30/18 21:12 Lovenox SUB-Q 40 mg QDAY@2200 [facility] Administration Lorazepam 0.5 mg 05/30/18 22:00 05/31/18 09:17 Ativan PO 0.5 mg BID [facility] Administration Lorazepam 0.5 mg 05/31/18 03:00 05/31/18 03:15 Ativan PO 0.5 mg Q6H PRN Administration Agitation Lorazepam 4 mg 05/31/18 10:52 Ativan IV Q1H PRN CIWA-Ar 16-25 Lorazepam 2 mg 05/31/18 10:52 Ativan IV Q1H PRN CIWA-Ar 8-15 Lorazepam 4 mg 05/31/18 10:52 Ativan IV Q15MIN PRN CIWA-Ar >25 Methylprednisolone Sodium Succinate 80 mg 05/30/18 18:00 05/31/18 01:47 Solu-Medrol IV 80 mg Q8H [facility] Administration Ondansetron HCl 4 mg 05/30/18 12:16 04/06/19 20:30 Zofran IV 4 mg Q8H PRN Administration Nausea And Vomiting Oxycodone HCl 15 mg 05/31/18 02:58 05/31/18 09:18 Roxicodone PO 15 mg Q6H PRN Administration Pain, Moderate (4-6) Sodium Chloride 10 ml 05/30/18 22:00 05/31/18 09:17 Sodium Chloride Flush Syringe 10 Ml IV 10 ml BID [facility] Administration Sodium Chloride 10 ml 05/30/18 12:16 Sodium Chloride Flush Syringe 10 Ml IV PRN PRN LINE FLUSH
[2018-05-31] MEDS: HALFPRIN EC PO SCH (11:24)
[2018-05-31] MEDS: ATIVAN IV PRN ×2 (11:33→22:41)
[2018-05-31 11:38] LABS: Basophils % (Manual) 0 % (0.0-1.8); Eosinophils % (Manual) 0 % (0.0-4.3); Total Cells Counted 100
[2018-05-31 11:39] LABS: Anisocytosis Few; Ovalocytes Few; Platelet Estimate Consistent w Auto; Poikilocytosis Few
[2018-05-31] MEDS: COZAAR PO SCH (14:57)
[2018-05-31] MEDS: NORVASC PO SCH (14:58)
[2018-05-31] MEDS: LASIX PO SCH (14:58)
--- NOTE | 2018-05-31 17:58 | Consultation ---
History of Present Illness - Reason for Consult Consult date: 05/31/18 Reason for consult: psychiatric evaluation - Chief Complaint Chief complaint: "depression" - History of Present Psychiatric Illness Consulted for depression. 67 year old AAF seen on the [facility] unit. She was admitted for atypical chest pain. She states the opioid situation has been handled. She wants her medicines managed for depression. She was recently changed from zoloft to cymbalta and was on 60mg bid in the SNF. She was on buspar 5mg tid but does not want it continued. She states trazodone 150mg hs helps her sleep. It is confirmed she was getting this in the SNF. She denies SI/HI/AVH. See psychologist social consult note from one week ago: [67-year-old female who presented to the emergency room for chest pain. This patient is known to me. Psychiatry was consulted for opioid dependence. Today the patient is cooperative, but anxious during the assessment. She stated that she take Suboxone "sometimes." She stated that her doctor has transitioned her to Suboxone 2 weeks ago. Also, she stated that she is seen by Dr aGlvan for pain management. She stated that her major issue is her chronic back pain from a fall. She stated that her depression and anxiety stem from all her medical conditions along with worrying about her son who reside with her. She stated that her son is "somewhat disabled." She stated that she is seen by Dr Pham for outpatient psy services. She stated that she is compliant with her medications, but do not take Ativan for anxiety. She denies SI/HI's and AVH's. She acknowledged "so so" sleep, but denies a poor appetite. She denies recreational drug use and alcohol consumption (etoh). ] Past psychiatric history - Past Medical History Past Medical History: other (Chronic back pain), asthma/COPD, RA, CHF Past Surgical History: Other (hernia repair and lower back/ cyst removal) - past Psychiatric treatment and history psychiatric treatment history: The patient is seen by Dr Pham for outpatient psy services. Denies a fam psy hx. - Social History Social history:staying in SNF (was staying with family prior to last visit this month) Medications and Allergies Allergies Allergy/AdvReac Type Severity Reaction Status Date / Time No Known Allergies Allergy Verified 05/22/18 09:54 Home Medications Medication Instructions Recorded Confirmed Last Taken Type predniSONE [Prednisone] 50 mg PO DAILY #7 tablet 03/05/18 05/30/18 1 Day Ago Rx ~05/29/18 Amlodipine Besylate [Norvasc] 10 mg PO DAILY 05/22/18 05/30/18 1 Day Ago History ~05/29/18 Buprenorphine HCl/Naloxone HCl 1 film SL DAILY 05/22/18 05/30/18 1 Day Ago History [Suboxone 8 mg-2 mg SL Film] ~05/29/18 cloNIDine-TTS PATCH [Catapres-Tts 0.2 mg TD QWEEK 05/22/18 05/30/18 1 Day Ago History Patch] ~05/29/18 ALBUTEROL NEB's [Proventil 0.083% 2.5 mg IH Q4HRT PRN #120 nebu 05/26/18 05/30/18 1 Day Ago Rx NEBS] ~05/29/18 Albuterol Sulfate [Ventolin Hfa] 2 puff IH Q4H #1 hfa.aer.ad 05/26/18 05/30/18 1 Day Ago Rx ~05/29/18 Budesonide/Formoterol Fumarate 10.2 gm IH BID #1 hfa.aer.ad 05/26/18 05/30/18 1 Day Ago Rx [Symbicort 160-4.5 Mcg Inhaler] ~05/29/18 Furosemide [Lasix TAB] 40 mg PO QDAY #30 tablet 05/26/18 05/30/18 1 Day Ago Rx ~05/29/18 LORazepam [Ativan] 0.5 mg PO BID #20 tablet 05/26/18 05/30/18 1 Day Ago Rx ~05/29/18 Potassium Chloride [K-Dur] 20 meq PO DAILY #30 tablet 05/26/18 05/30/18 1 Day Ago Rx ~05/29/18 Tiotropium [place] [Spiriva 1 puff IH DAILY #1 mist.inhal 05/26/18 05/30/18 1 Day Ago Rx Respimat] ~05/29/18 Active Meds: Active Medications Acetaminophen (Tylenol) 650 mg PO Q4H PRN PRN Reason: Pain MILD(1-3)/Fever >100.5/AMOR Last Admin: 05/30/18 20:32 Dose: 650 mg Documented by: Albuterol (Proventil) 2.5 mg IH Q4HRT PRN PRN Reason: Shortness Of Breath Albuterol/Ipratropium (Duoneb *Not For Prn Use*) 1 ampul IH Q6HRT [facility] Last Admin: 05/31/18 14:26 Dose: 1 ampul Documented by: Amlodipine Besylate (Norvasc) 10 mg PO QDAY [facility] Last Admin: 05/31/18 14:58 Dose: 10 mg Documented by: Aspirin (Halfprin Ec) 81 mg PO QDAY [facility] Last Admin: 05/31/18 11:24 Dose: 81 mg Documented by: Enoxaparin Sodium (Lovenox) 40 mg SUB-Q QDAY@2200 [facility] Last Admin: 05/30/18 21:12 Dose: 40 mg Documented by: Furosemide (Lasix) 40 mg PO QDAY [facility] Last Admin: 05/31/18 14:58 Dose: 40 mg Documented by: Lorazepam (Ativan) 0.5 mg PO BID [facility] Last Admin: 05/31/18 09:17 Dose: 0.5 mg Documented by: Lorazepam (Ativan) 0.5 mg PO Q6H PRN PRN Reason: Agitation Last Admin: 05/31/18 03:15 Dose: 0.5 mg Documented by: Lorazepam (Ativan) 4 mg IV Q1H PRN PRN Reason: CIWA-Ar 16-25 Lorazepam (Ativan) 2 mg IV Q1H PRN PRN Reason: CIWA-Ar 8-15 Last Admin: 05/31/18 11:33 Dose: 2 mg Documented by: Lorazepam (Ativan) 4 mg IV Q15MIN PRN PRN Reason: CIWA-Ar >25 Losartan Potassium (Cozaar) 50 mg PO QDAY [facility] Last Admin: 05/31/18 14:57 Dose: 50 mg Documented by: Methylprednisolone Sodium Succinate (Solu-Medrol) 80 mg IV Q8H [facility] Last Admin: 05/31/18 17:51 Dose: 80 mg Documented by: Ondansetron HCl (Zofran) 4 mg IV Q8H PRN PRN Reason: Nausea And Vomiting Last Admin: 05/30/18 20:30 Dose: 4 mg Documented by: Oxycodone HCl (Roxicodone) 15 mg PO Q6H PRN PRN Reason: Pain, Moderate (4-6) Last Admin: 05/31/18 14:58 Dose: 15 mg Documented by: Sodium Chloride (Sodium Chloride Flush Syringe 10 Ml) 10 ml IV BID ANGELES Last Admin: 05/31/18 09:17 Dose: 10 ml Documented by: Sodium Chloride (Sodium Chloride Flush Syringe 10 Ml) 10 ml IV PRN PRN PRN Reason: LINE FLUSH Mental Status Exam - Vital signs Last Vital Signs Temp 99.3 F 05/31/18 14:02 Pulse 117 H 05/31/18 14:58 Resp 24 05/31/18 14:58 BP 173/92 05/31/18 14:58 Pulse Ox 96 05/31/18 14:02 - Exam Narrative exam: MSE: Appearance: calm, cooperative Behavior: regular eye contact Speech: regular rate and tone Mood: "okay" Affect: congruent to mood Thought Process: logical Thought Content: denies SI/HI's and AVH Motor Activity: sitting up in bed Cognition: A/O x3 Insight: appropriate Judgment: appropriate Results Result Diagrams: 05/31/18 05:20 05/31/18 05:20 Abnormal lab results 05/31/18 05/31/18 Range/Units 05:20 05:20 RDW 17.3 H (13.2-15.2) % Seg Neuts % (Manual) 95.0 H (40.0-70.0) % Lymphocytes % (Manual) 4.0 L (13.4-35.0) % Seg Neutrophils # Man 9.6 H (1.8-7.7) K/mm3 Lymphocytes # (Manual) 0.4 L (1.2-5.4) K/mm3 BUN 37 H (7-17) mg/dL Glucose 153 H (65-100) mg/dL All other labs normal. Assessment and Plan Assessment and plan: Impression: MDD, BRYAN, and Opioid Use Disorder. Today the patient is calm and cooperative during the assessment. Med management for depression is requested. Recommendation/Plan: Recommend not to give benzos and opioids concurrently. Ativan was tapered while at the SNF She wants to continue cymbalta and trazodone. cymbalta 60mg daily and consider 60mg bid trazodone 100mg hs for sleep/anxiety at hs risk of serotonin syndrome and s/s discussed. She is agreeable to meds. She tolerated them at the SNF. Dispo: The patient can follow up with her psychiatrist Dr Pham for outpatient psy services once discharged. . Staffed with Dr tejeda.
[2018-05-31] MEDS: LOVENOX SUB-Q SCH (21:40)
[2018-05-31] MEDS: DESYREL PO SCH (21:40)
[2018-06-01] MEDS: DUONEB *Not for PRN Use IH SCH ×4 (02:44→21:16)
[2018-06-01] MEDS: SOLU-Medrol IV SCH ×3 (03:00→18:22)
[2018-06-01] MEDS: ROXICODONE PO PRN ×3 (04:48→18:22)
--- NOTE | 2018-06-01 09:20 | Progress Note ---
Assessment and Plan Assessment and plan: Atypical chest pain. Pt with negative CT for PE and Lexiscan on recent hospitalization. Cardiology following and likelt to perform cath. I discussed case with them. Acute COPD exacerbation. Patient will be treated with IV steroids, bronchodilators/nebulizers Pulmonary hypertension. Chronic systolic heart failure, compensated. EF 45%. Opiate and benzodiazepine dependence. Cont meds per psych recommendations Major depression and anxiety. Psychiatry following Paroxysmal atrial tachycardia. Hypertension. Resume antihypertensive medications. Rheumatoid arthritis. Continue current medications. History Interval history: No new issues overnight Hospitalist Physical - Constitutional Vitals: Temp Pulse Resp BP Pulse Ox 98.1 F 91 H 20 147/70 98 06/01/18 07:36 06/01/18 07:36 06/01/18 07:36 06/01/18 07:36 06/01/18 07:36 General appearance: Present: no acute distress, well-nourished - EENT Eyes: Present: PERRL, EOM intact ENT: hearing intact, clear oral mucosa, dentition normal - Neck Neck: Present: supple, normal ROM - Respiratory Respiratory effort: normal Respiratory: bilateral: CTA - Cardiovascular Rhythm: regular Heart Sounds: Present: S1 & S2. Absent: gallop, rub - Extremities Extremities: no ischemia, No edema, Full ROM - Abdominal General gastrointestinal: soft, non-tender, non-distended, normal bowel sounds - Integumentary Integumentary: Present: clear, warm, dry - Neurologic Neurologic: CNII-XII intact, moves all extremities Results - Labs CBC & Chem 7: 05/31/18 05:20 05/31/18 05:20 Labs: Laboratory Last Values WBC 10.1 K/mm3 (4.5-11.0) 05/31/18 05:20 RBC 3.95 M/mm3 (3.65-5.03) 05/31/18 05:20 Hgb 11.8 gm/dl (10.1-14.3) 05/31/18 05:20 Hct 36.0 % (30.3-42.9) 05/31/18 05:20 MCV 91 fl (79-97) 05/31/18 05:20 MCH 30 pg (28-32) 05/31/18 05:20 MCHC 33 % (30-34) 05/31/18 05:20 RDW 17.3 % (13.2-15.2) H 05/31/18 05:20 Plt Count 178 K/mm3 (140-440) 05/31/18 05:20 Lymph % (Auto) 16.7 % (13.4-35.0) 05/30/18 06:26 Logan % (Auto) 7.8 % (0.0-7.3) H 05/30/18 06:26 Eos % (Auto) 0.9 % (0.0-4.3) 05/30/18 06:26 Baso % (Auto) 0.3 % (0.0-1.8) 05/30/18 06:26 Lymph # 1.8 K/mm3 (1.2-5.4) 05/30/18 06:26 Logan # 0.8 K/mm3 (0.0-0.8) 05/30/18 06:26 Eos # 0.1 K/mm3 (0.0-0.4) 05/30/18 06:26 Baso # 0.0 K/mm3 (0.0-0.1) 05/30/18 06:26 Add Manual Diff Complete 05/31/18 05:20 Total Counted 100 05/31/18 05:20 Seg Neutrophils % [employer] 05/31/18 05:20 Seg Neuts % (Manual) 95.0 % (40.0-70.0) H 05/31/18 05:20 Band Neutrophils % 0 % 05/31/18 05:20 Lymphocytes % (Manual) 4.0 % (13.4-35.0) L 05/31/18 05:20 Reactive Lymphs % (Man) 0 % 05/31/18 05:20 Monocytes % (Manual) 1.0 % (0.0-7.3) 05/31/18 05:20 Eosinophils % (Manual) 0 % (0.0-4.3) 05/31/18 05:20 Basophils % (Manual) 0 % (0.0-1.8) 05/31/18 05:20 Metamyelocytes % 0 % 05/31/18 05:20 Myelocytes % 0 % 05/31/18 05:20 Promyelocytes % 0 % 05/31/18 05:20 Blast Cells % 0 % 05/31/18 05:20 Nucleated RBC % Not Reportable 05/31/18 05:20 Seg Neutrophils # 7.8 K/mm3 (1.8-7.7) H 05/30/18 06:26 Seg Neutrophils # Man 9.6 K/mm3 (1.8-7.7) H 05/31/18 05:20 Band Neutrophils # 0.0 K/mm3 05/31/18 05:20 Lymphocytes # (Manual) 0.4 K/mm3 (1.2-5.4) L 05/31/18 05:20 Abs React Lymphs (Man) 0.0 K/mm3 05/31/18 05:20 Monocytes # (Manual) 0.1 K/mm3 (0.0-0.8) 05/31/18 05:20 Eosinophils # (Manual) 0.0 K/mm3 (0.0-0.4) 05/31/18 05:20 Basophils # (Manual) 0.0 K/mm3 (0.0-0.1) 05/31/18 05:20 Metamyelocytes # 0.0 K/mm3 05/31/18 05:20 Myelocytes # 0.0 K/mm3 05/31/18 05:20 Promyelocytes # 0.0 K/mm3 05/31/18 05:20 Blast Cells # 0.0 K/mm3 05/31/18 05:20 WBC Morphology Not Reportable 05/31/18 05:20 Hypersegmented Neuts Not Reportable 05/31/18 05:20 Hyposegmented Neuts Not Reportable 05/31/18 05:20 Hypogranular Neuts Not Reportable 05/31/18 05:20 Smudge Cells Not Reportable 05/31/18 05:20 Toxic Granulation Not Reportable 05/31/18 05:20 Toxic Vacuolation Not Reportable 05/31/18 05:20 Dohle Bodies Not Reportable 05/31/18 05:20 Pelger-Huet Anomaly Not Reportable 05/31/18 05:20 Ashlee Rods Not Reportable 05/31/18 05:20 Platelet Estimate Consistent w auto 05/31/18 05:20 Clumped Platelets Not Reportable 05/31/18 05:20 Plt Clumps, EDTA Not Reportable 05/31/18 05:20 Large Platelets Not Reportable 05/31/18 05:20 Giant Platelets Not Reportable 05/31/18 05:20 Platelet Satelliting Not Reportable 05/31/18 05:20 Plt Morphology Comment Not Reportable 05/31/18 05:20 RBC Morphology Not Reportable 05/31/18 05:20 Dimorphic RBCs Not Reportable 05/31/18 05:20 Polychromasia Not Reportable 05/31/18 05:20 Hypochromasia Not Reportable 05/31/18 05:20 Poikilocytosis Few 05/31/18 05:20 Anisocytosis Few 05/31/18 05:20 Microcytosis Not Reportable 05/31/18 05:20 Macrocytosis Not Reportable 05/31/18 05:20 Spherocytes Not Reportable 05/31/18 05:20 Pappenheimer Bodies Not Reportable 05/31/18 05:20 Sickle Cells Not Reportable 05/31/18 05:20 Target Cells Not Reportable 05/31/18 05:20 Tear Drop Cells Not Reportable 05/31/18 05:20 Ovalocytes Few 05/31/18 05:20 Helmet Cells Not Reportable 05/31/18 05:20 [place] Bodies Not Reportable 05/31/18 05:20 [place] Rings Not Reportable 05/31/18 05:20 Taylor Cells Not Reportable 05/31/18 05:20 Bite Cells Not Reportable 05/31/18 05:20 Crenated Cell Not Reportable 05/31/18 05:20 Elliptocytes Not Reportable 05/31/18 05:20 Acanthocytes (Spur) Not Reportable 05/31/18 05:20 Rouleaux Not Reportable 05/31/18 05:20 Hemoglobin C Crystals Not Reportable 05/31/18 05:20 Schistocytes Not Reportable 05/31/18 05:20 Malaria parasites Not Reportable 05/31/18 05:20 Darin Bodies Not Reportable 05/31/18 05:20 Hem Pathologist Commnt No 05/31/18 05:20 PT 12.5 Sec. (12.2-14.9) 05/30/18 06:46 INR 0.88 (0.87-1.13) 05/30/18 06:46 APTT 25.2 Sec. (24.2-36.6) 05/30/18 06:46 D-Dimer 212.51 ng/mlDDU (0-234) 05/30/18 06:46 POC ABG pH 7.397 (7.35-7.45) 05/30/18 09:01 POC ABG pCO2 51.9 (35-45) H 05/30/18 09:01 POC ABG pO2 110 (80-105) H 05/30/18 09:01 POC ABG HCO3 32.0 (22-26 mml/L) 05/30/18 09:01 POC ABG Total CO2 34 (23-27mmol/L) 05/30/18 09:01 POC ABG O2 Sat 98 05/30/18 09:01 POC ABG Base Excess 7 ((-2) - (+3)mmol/L) 05/30/18 09:01 FiO2 28 % 05/30/18 09:01 Sodium 143 mmol/L (137-145) 05/31/18 05:20 Potassium 5.0 mmol/L (3.6-5.0) 05/31/18 05:20 Chloride 100.8 mmol/L (98-107) 05/31/18 05:20 Carbon Dioxide 28 mmol/L (22-30) 05/31/18 05:20 Anion Gap 19 mmol/L 05/31/18 05:20 BUN 37 mg/dL (7-17) H 05/31/18 05:20 Creatinine 1.2 mg/dL (0.7-1.2) 05/31/18 05:20 Estimated GFR 54 ml/min 05/31/18 05:20 BUN/Creatinine Ratio 31 % 05/31/18 05:20 Glucose 153 mg/dL (65-100) H 05/31/18 05:20 Lactic Acid 0.90 mmol/L (0.7-2.0) 05/30/18 08:34 Calcium 9.4 mg/dL (8.4-10.2) 05/31/18 05:20 Magnesium 2.40 mg/dL (1.7-2.3) H 05/30/18 06:26 Total Bilirubin 0.30 mg/dL (0.1-1.2) 05/30/18 06:26 Direct Bilirubin < 0.2 mg/dL (0-0.2) 05/30/18 06:26 Indirect Bilirubin 0.1 mg/dL 05/30/18 06:26 AST 13 units/L (5-40) 05/30/18 06:26 ALT 9 units/L (7-56) 05/30/18 06:26 Alkaline Phosphatase 60 units/L (35-129) 05/30/18 06:26 Total Creatine Kinase 104 units/L (30-135) 05/30/18 06:26 CK-MB (CK-2) 2.3 ng/mL (0.0-4.0) 05/30/18 06:26 CK-MB (CK-2) Rel Index 2.2 (0-4) 05/30/18 06:26 NT-Pro-B Natriuret Pep 315.0 pg/mL (0-900) 05/30/18 06:46 Total Protein 5.9 g/dL (6.3-8.2) L 05/30/18 06:26 Albumin 4.2 g/dL (3.9-5) 05/30/18 06:26 Albumin/Globulin Ratio 2.5 % 05/30/18 06:26 TSH 1.470 mlU/mL (0.270-4.200) 05/30/18 06:26 Urine Color Yellow (Yellow) 05/30/18 07:57 Urine Turbidity Clear (Clear) 05/30/18 07:57 Urine pH 5.0 (5.0-7.0) 05/30/18 07:57 Ur Specific [place] 1.032 (1.003-1.030) H 05/30/18 07:57 Urine Protein 30 mg/dl mg/dL (Negative) 05/30/18 07:57 Urine Glucose (UA) Neg mg/dL (Negative) 05/30/18 07:57 Urine Ketones Neg mg/dL (Negative) 05/30/18 07:57 Urine Blood Neg (Negative) 05/30/18 07:57 Urine Nitrite Neg (Negative) 05/30/18 07:57 Urine Bilirubin Neg (Negative) 05/30/18 07:57 Urine Urobilinogen 2.0 mg/dL (<2.0) 05/30/18 07:57 Ur Leukocyte Esterase Mod (Negative) 05/30/18 07:57 Urine WBC (Auto) 7.0 /HPF (0.0-6.0) H 05/30/18 07:57 Urine RBC (Auto) 2.0 /HPF (0.0-6.0) 05/30/18 07:57 U Epithel Cells (Auto) 1.0 /HPF (0-13.0) 05/30/18 07:57 Urine Bacteria (Auto) 1+ /HPF (Negative) 05/30/18 07:57 Hyaline Casts 29 /LPF 05/30/18 07:57 Urine Mucus Few /HPF 05/30/18 07:57 Urine Opiates Screen Presumptive negative 05/30/18 07:57 Urine Methadone Screen Presumptive negative 05/30/18 07:57 Ur Barbiturates Screen Presumptive negative 05/30/18 07:57 Ur Phencyclidine Scrn Presumptive negative 05/30/18 07:57 Ur Amphetamines Screen Presumptive negative 05/30/18 07:57 U Benzodiazepines Scrn Presumptive negative 05/30/18 07:57 Urine Cocaine Screen Presumptive negative 05/30/18 07:57 U Marijuana (THC) Screen Presumptive negative 05/30/18 07:57 Drugs of Abuse Note Disclamer 05/30/18 07:57 Plasma/Serum Alcohol < 0.01 % (0-0.07) 05/30/18 06:26 Active Medications - Current Medications Current Medications: Generic Name Dose Route Start Last Admin Trade Name Freq PRN Reason Stop Dose Admin Acetaminophen 650 mg 05/30/18 12:16 05/30/18 20:32 Tylenol PO 650 mg Q4H PRN Administration Pain MILD(1-3)/Fever >100.5/AMOR Albuterol 2.5 mg 05/30/18 12:16 Proventil IH Q4HRT PRN Shortness Of Breath Albuterol/Ipratropium 1 ampul 05/30/18 14:00 06/01/18 09:04 Duoneb *Not For Prn Use* IH 1 ampul Q6HRT ANGELES Administration Amlodipine Besylate 10 mg 05/31/18 15:00 05/31/18 14:58 Norvasc PO 10 mg QDAY ANGELES Administration Aspirin 81 mg 05/31/18 11:00 05/31/18 11:24 Halfprin Ec PO 81 mg QDAY ANGELES Administration Duloxetine HCl 60 mg 06/01/18 10:00 Cymbalta PO QDAY ANGELES Enoxaparin Sodium 40 mg 05/30/18 22:00 05/31/18 21:40 Lovenox SUB-Q 40 mg QDAY@2200 ANGELES Administration Furosemide 40 mg 05/31/18 15:00 05/31/18 14:58 Lasix PO 40 mg QDAY ANGELES Administration Losartan Potassium 50 mg 05/31/18 15:00 05/31/18 14:57 Cozaar PO 50 mg QDAY ANGELES Administration Methylprednisolone Sodium Succinate 80 mg 05/30/18 18:00 06/01/18 03:00 Solu-Medrol IV 80 mg Q8H ANGELES Administration Ondansetron HCl 4 mg 05/30/18 12:16 05/30/18 20:30 Zofran IV 4 mg Q8H PRN Administration Nausea And Vomiting Oxycodone HCl 15 mg 05/31/18 02:58 06/01/18 04:48 Roxicodone PO 15 mg Q6H PRN Administration Pain, Moderate (4-6) Sodium Chloride 10 ml 05/30/18 22:00 05/31/18 21:41 Sodium Chloride Flush Syringe 10 Ml IV 10 ml BID ANGELES Administration Sodium Chloride 10 ml 05/30/18 12:16 Sodium Chloride Flush Syringe 10 Ml IV PRN PRN LINE FLUSH Trazodone HCl 100 mg 05/31/18 22:00 05/31/18 21:40 Desyrel PO 100 mg HS ANGELES Administration
[2018-06-01] MEDS: ZOFRAN IV PRN (09:24)
[2018-06-01] MEDS: TYLENOL PO PRN (09:24)
[2018-06-01] MEDS: LASIX PO SCH (09:31)
[2018-06-01] MEDS: NORVASC PO SCH (09:31)
[2018-06-01] MEDS: COZAAR PO SCH (09:31)
[2018-06-01] MEDS: CYMBALTA PO SCH (09:31)
[2018-06-01] MEDS: HALFPRIN EC PO SCH (09:32)
[2018-06-01] MEDS: SODIUM CHLORIDE FLUSH SYRINGE 10 ML IV SCH ×2 (09:33→22:27)
--- NOTE | 2018-06-01 10:28 | Progress Note ---
Subjective - Reason for Consult Consult date: 06/01/18 Reason for consult: Psychiatry Follow-up - Chief Complaint Chief complaint: "I feel better" 67 year old AAF seen on the [facility] unit. She was admitted for atypical chest pain. Today the patient is calm and cooperative during the assessment. She stated that she feel "better" and will follow up with her "pain doctor" Dr Galvan once discharged. She stated that she is willing to try another medication for anxiety other than benzos. She rate her anxiety 3/10, with 10 being the worse. She denies SI/HI's and AVH's. She denies headaches, N/V, and body aches. She denies any side effects of her mediations. Discussed Buspar for anxiety with the patient. She stated that she will try it again. Mental Status Exam - Vital signs Last Vital Signs Temp 98.1 F 06/01/18 07:36 Pulse 91 H 06/01/18 09:31 Resp 20 06/01/18 07:36 BP 147/70 06/01/18 09:31 Pulse Ox 98 06/01/18 07:36 - Exam Narrative exam: MSE: Appearance: calm, cooperative Behavior: regular eye contact Speech: regular rate and tone Mood: "okay" Affect: congruent to mood Thought Process: logical Thought Content: denies SI/HI's and AVH's Motor Activity: sitting up in bed Cognition: A/O x3 Insight: appropriate Judgment: appropriate Assessment and Plan mpression: MDD, BRYAN, and Opioid Use Disorder. Today the patient is calm and cooperative during the assessment. No acute withdrawals noted (benzos or opiates). Recommendation/Plan: Continue Cymbalta 60 mg PO daily for depression and start Buspar 7.5 mg PO BID for anxiety. Discussed possible suicidality/medication induced kandi with the patient reference Cymbalta. Recommend not to give benzos and opioids concurrently. Will follow up with the patient in 24 hours. Dispo: The patient can follow up with her psychiatrist Dr Pham for outpatient psy services once discharged. . Will staff with Dr Flower Lyles.
[2018-06-01] MEDS ORDERED: VISTARIL PO SCH (11:00)
--- NOTE | 2018-06-01 11:16 | Progress Note ---
Assessment and Plan Pt presented with recurrent cp. s/p lexiscan MPI stress test 05/26/2018 which was negative. She also c/o palpitations and is noted to be in ST with HR as high as 160s overnight. She has h/o anxiety and appears to be in opioid/benzo withdrawl. Will optimize HR and anti-ischemic regimen and can consider coronary angiography for definitive diagnosis if symptoms persist. The patient has been seen in conjunction with Dr. Gilliland who agrees with the assessment and plan of care. - Patient Problems (1) Atypical chest pain Current Visit: Yes Status: Acute (2) CO2 retention Current Visit: Yes Status: Acute (3) COPD exacerbation Current Visit: Yes Status: Acute (4) Chronic narcotic dependence Current Visit: Yes Status: Acute (5) Benzodiazepine dependence Current Visit: No Status: Acute (6) Depression Current Visit: No Status: Acute (7) Narcotic dependence Current Visit: No Status: Acute (8) Opioid withdrawal delirium, acute, hyperactive Current Visit: No Status: Acute (9) Rheumatoid arthritis Current Visit: No Status: Acute (10) Tobacco abuse Current Visit: No Status: Acute (11) Anxiety Current Visit: No Status: Chronic (12) Chronic low back pain Current Visit: No Status: Chronic Qualifiers: Back pain laterality: midline Sciatica presence: without sciatica Qualified Code(s): M54.5 - Low back pain; G89.29 - Other chronic pain (13) HTN (hypertension) Current Visit: No Status: Chronic Qualifiers: Hypertension type: essential hypertension Qualified Code(s): I10 - Essential (primary) hypertension (14) Pulmonary hypertension, moderate to severe Current Visit: No Status: Chronic Subjective Date of service: 06/01/18 Principal diagnosis: cp Interval history: pt resting in bed, c/o intermittent cp and palpitations. tele reviewed - pt in sinus tach with HR 120s - 160s overnight. Objective Last Vital Signs Temp 98.1 F 06/01/18 07:36 Pulse 91 H 06/01/18 09:31 Resp 20 06/01/18 07:36 BP 147/70 06/01/18 09:31 Pulse Ox 98 06/01/18 07:36 - Physical Examination General: No Apparent Distress HEENT: Positive: PERRL, Normocephaly, Mucus Membranes Moist Cardiac: Positive: Regular Rhythm, S1/S2, Tachycardia Lungs: Positive: Decreased Breath Sounds Neuro: Positive: Grossly Intact Abdomen: Negative: Tender Skin: Negative: Rash, Wound Musculoskeletal: No Pain Extremities: Absent: edema - Imaging and Cardiology EKG: report reviewed, image reviewed Echo: report reviewed (01/2018: EF 50-55%, mild to mod LVH, mild TR, RVSP 48mmHg, trivial pericardial effusion.) - Telemetry EKG Rhythm: Sinus Tachycardia
[2018-06-01] MEDS: LOPRESSOR PO SCH ×2 (12:25→22:24)
[2018-06-01] MEDS: BUSPAR PO SCH ×3 (15:55→22:26)
[2018-06-01] MEDS: LOVENOX SUB-Q SCH (22:26)
[2018-06-01] MEDS: DESYREL PO SCH (22:26)
[2018-06-02] MEDS: SOLU-Medrol IV SCH ×3 (01:54→18:11)
[2018-06-02] MEDS: ROXICODONE PO PRN ×4 (01:54→20:41)
[2018-06-02] MEDS: DUONEB *Not for PRN Use IH SCH ×4 (03:07→21:12)
[2018-06-02 07:09] LABS: Hematocrit 36.1 % (30.3-42.9); Hemoglobin 11.7 gm/dl (10.1-14.3); Mean Corpuscular HGB Conc 32 % (30-34); Mean Corpuscular Volume 91 fl (79-97); Platelet Count 186 K/mm3 (140-440); Red Blood Count 3.96 M/mm3 (3.65-5.03); Red Cell Distribution Width 17.2 % (13.2-15.2)
[2018-06-02 07:32] LABS: Calcium 8.9 mg/dL (8.4-10.2)
[2018-06-02] MEDS ORDERED: SOLU-Medrol IV SCH (08:15)
[2018-06-02] MEDS: COZAAR PO SCH (09:09)
[2018-06-02] MEDS: ZOFRAN IV PRN (09:09)
[2018-06-02] MEDS: HALFPRIN EC PO SCH (09:10)
[2018-06-02] MEDS: NORVASC PO SCH (09:10)
[2018-06-02] MEDS: CYMBALTA PO SCH (09:11)
[2018-06-02] MEDS: LOPRESSOR PO SCH ×3 (09:11→20:43)
[2018-06-02] MEDS: BUSPAR PO SCH ×2 (09:11→21:02)
[2018-06-02] MEDS: LASIX PO SCH (09:11)
[2018-06-02 09:33] LABS: Basophils % (Manual) 0 % (0.0-1.8); Eosinophils % (Manual) 0 % (0.0-4.3); Total Cells Counted 100
[2018-06-02 09:34] LABS: Anisocytosis Few; Ovalocytes Few; Platelet Estimate Consistent w Auto; Poikilocytosis Few
--- NOTE | 2018-06-02 10:29 | Progress Note ---
Assessment and Plan Pt reports cp and palpitations are improving. HR improving. Increase lopressor to TID dosing. Can consider coronary angiography for definitive diagnosis if symptoms persist. The patient has been seen in conjunction with Dr. Gilliland who agrees with the assessment and plan of care. - Patient Problems (1) Atypical chest pain Current Visit: Yes Status: Acute (2) CO2 retention Current Visit: Yes Status: Acute (3) COPD exacerbation Current Visit: Yes Status: Acute (4) Chronic narcotic dependence Current Visit: Yes Status: Acute (5) Benzodiazepine dependence Current Visit: No Status: Acute (6) Depression Current Visit: No Status: Acute (7) Narcotic dependence Current Visit: No Status: Acute (8) Opioid withdrawal delirium, acute, hyperactive Current Visit: No Status: Acute (9) Rheumatoid arthritis Current Visit: No Status: Acute (10) Tobacco abuse Current Visit: No Status: Acute (11) Anxiety Current Visit: No Status: Chronic (12) Chronic low back pain Current Visit: No Status: Chronic Qualifiers: Back pain laterality: midline Sciatica presence: without sciatica Qualified Code(s): M54.5 - Low back pain; G89.29 - Other chronic pain (13) HTN (hypertension) Current Visit: No Status: Chronic Qualifiers: Hypertension type: essential hypertension Qualified Code(s): I10 - Essential (primary) hypertension (14) Pulmonary hypertension, moderate to severe Current Visit: No Status: Chronic Subjective Date of service: 06/02/18 Principal diagnosis: cp Interval history: pt resting in bed, states she is feeling better today, cp and palpitations improved. tele reviewed - pt in sinus tach with HR 100s. Objective Last Vital Signs Temp 98.3 F 06/02/18 07:49 Pulse 97 H 06/02/18 09:09 Resp 20 06/02/18 07:49 BP 147/78 06/02/18 09:09 Pulse Ox 95 06/02/18 07:49 - Physical Examination General: No Apparent Distress HEENT: Positive: PERRL, Normocephaly, Mucus Membranes Moist Neck: Positive: neck supple Cardiac: Positive: Regular Rhythm, S1/S2 Lungs: Positive: Decreased Breath Sounds Neuro: Positive: Grossly Intact Abdomen: Negative: Tender Skin: Negative: Rash, Wound Musculoskeletal: No Pain Extremities: Absent: edema - Labs and Meds CBC 06/02/18 Range/Units 04:52 WBC 18.4 H (4.5-11.0) K/mm3 RBC 3.96 (3.65-5.03) M/mm3 Hgb 11.7 (10.1-14.3) gm/dl Hct 36.1 (30.3-42.9) % Plt Count 186 (140-440) K/mm3 Comprehensive Metabolic Panel 06/02/18 Range/Units 04:52 Sodium 141 (137-145) mmol/L Potassium 4.4 (3.6-5.0) mmol/L Chloride 97.0 L (98-107) mmol/L Carbon Dioxide 25 (22-30) mmol/L BUN 35 H (7-17) mg/dL Creatinine 1.1 (0.7-1.2) mg/dL Glucose 134 H (65-100) mg/dL Calcium 8.9 (8.4-10.2) mg/dL - Imaging and Cardiology EKG: report reviewed, image reviewed Echo: report reviewed (01/2018: EF 50-55%, mild to mod LVH, mild TR, RVSP 48mmHg, trivial pericardial effusion.)
--- NOTE | 2018-06-02 10:30 | Progress Note ---
Subjective - Reason for Consult Consult date: 06/02/18 Reason for consult: Psychiatry Follow-up - Chief Complaint Chief complaint: "I had a good night" 67 year old AAF seen on the [facility] unit. She was admitted for atypical chest pain. Today the patient is calm and cooperative during the assessment. She stated that she had a good night. She rate her depression/anxiety 3/10, with 10 being the worse. She denies SI/HI's and AVH's. She denies any side effects of her medications. Mental Status Exam - Vital signs Last Vital Signs Temp 98.3 F 06/02/18 07:49 Pulse 97 H 06/02/18 09:09 Resp 20 06/02/18 07:49 BP 147/78 06/02/18 09:09 Pulse Ox 95 06/02/18 07:49 - Exam Narrative exam: MSE: Appearance: calm, cooperative Behavior: regular eye contact Speech: regular rate and tone Mood: "okay" Affect: congruent to mood Thought Process: logical Thought Content: denies SI/HI's and AVH's Motor Activity: sitting up in bed Cognition: A/O x3 Insight: appropriate Judgment: appropriate Assessment and Plan mpression: MDD, BRYAN, and Opioid Use Disorder. Today the patient is calm and cooperative during the assessment. No acute withdrawals noted (benzos or opiates). Recommendation/Plan: Continue Cymbalta 60 mg PO daily for depression and Buspar 7.5 mg PO BID for anxiety. Discussed possible suicidality/medication induced kandi with the patient reference Cymbalta. Recommend not to give benzos and opioids concurrently. Psy sign off. Dispo: The patient can follow up with her psychiatrist Dr Pham or [facility] for outpatient psy services. Will staff with Dr Flower Lyles.
--- NOTE | 2018-06-02 12:32 | Progress Note ---
Assessment and Plan Assessment and plan: Atypical chest pain. Pt with negative CT for PE and Lexiscan on recent hospitalization. Cardiology said consider cardiac cath. Acute COPD exacerbation. Patient will be treated with IV steroids, bronc hodilators/nebulizers Leukocytosis likely due to high-dose IV steroid, decrease dose of steroid. We 'll follow CBC in the morning Pulmonary hypertension. Chronic systolic heart failure, compensated. EF 45%. continue lasix. Opiate and benzodiazepine dependence. Cont meds per psych recommendations Major depression and anxiety. Psychiatry following Paroxysmal atrial tachycardia. Hypertension. Resume antihypertensive medications. Rheumatoid arthritis. Continue current medications. 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 DVT prophylaxis; Lovenox Disposition; continue inpatient care with cardiology input for cardiac cath. History Interval history: Patient was and evaluated this morning, complaining of shortness of breath and joint pain due to rheumatoid arthritis Hospitalist Physical - Physical exam Narrative exam: Not in cardiopulmonary distress. The patient appeared well nourished and normally developed. Vital signs as documented. Head exam is unremarkable. No scleral icterus . Neck is without jugular venous distension, thyromegaly, or carotid bruits. Lungs are clear to auscultation. Cardiac exam reveals regular rate and Rhythm. Abdominal exam reveals normal bowel sounds. Extremities are nonedematous and both femoral and pedal pulses are normal. 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 No focal weakness. - Constitutional Vitals: Temp Pulse Resp BP Pulse Ox 98.3 F 99 H 20 147/78 95 06/02/18 07:49 06/02/18 10:43 06/02/18 10:43 06/02/18 09:09 06/02/18 10:00 General appearance: Present: no acute distress, well-nourished Results - Labs CBC & Chem 7: 06/02/18 04:52 06/02/18 04:52 Labs: Laboratory Last Values WBC 18.4 K/mm3 (4.5-11.0) H 06/02/18 04:52 RBC 3.96 M/mm3 (3.65-5.03) 06/02/18 04:52 Hgb 11.7 gm/dl (10.1-14.3) 06/02/18 04:52 Hct 36.1 % (30.3-42.9) 06/02/18 04:52 MCV 91 fl (79-97) 06/02/18 04:52 MCH 29 pg (28-32) 06/02/18 04:52 MCHC 32 % (30-34) 06/02/18 04:52 RDW 17.2 % (13.2-15.2) H 06/02/18 04:52 Plt Count 186 K/mm3 (140-440) 06/02/18 04:52 Lymph % (Auto) 16.7 % (13.4-35.0) 05/30/18 06:26 [place] % (Auto) 7.8 % (0.0-7.3) H 05/30/18 06:26 Eos % (Auto) 0.9 % (0.0-4.3) 05/30/18 06:26 Baso % (Auto) 0.3 % (0.0-1.8) 05/30/18 06:26 Lymph # 1.8 K/mm3 (1.2-5.4) 05/30/18 06:26 [place] # 0.8 K/mm3 (0.0-0.8) 05/30/18 06:26 Eos # 0.1 K/mm3 (0.0-0.4) 05/30/18 06:26 Baso # 0.0 K/mm3 (0.0-0.1) 05/30/18 06:26 Add Manual Diff Complete 06/02/18 04:52 Total Counted 100 06/02/18 04:52 Seg Neutrophils % Recreational Director 06/02/18 04:52 Seg Neuts % (Manual) 97.0 % (40.0-70.0) H 06/02/18 04:52 Band Neutrophils % 0 % 06/02/18 04:52 Lymphocytes % (Manual) 2.0 % (13.4-35.0) L 06/02/18 04:52 Reactive Lymphs % (Man) 0 % 06/02/18 04:52 Monocytes % (Manual) 1.0 % (0.0-7.3) 06/02/18 04:52 Eosinophils % (Manual) 0 % (0.0-4.3) 06/02/18 04:52 Basophils % (Manual) 0 % (0.0-1.8) 06/02/18 04:52 Metamyelocytes % 0 % 06/02/18 04:52 Myelocytes % 0 % 06/02/18 04:52 Promyelocytes % 0 % 06/02/18 04:52 Blast Cells % 0 % 06/02/18 04:52 Nucleated RBC % Not Reportable 06/02/18 04:52 Seg Neutrophils # 7.8 K/mm3 (1.8-7.7) H 05/30/18 06:26 Seg Neutrophils # Man 17.8 K/mm3 (1.8-7.7) H 06/02/18 04:52 Band Neutrophils # 0.0 K/mm3 06/02/18 04:52 Lymphocytes # (Manual) 0.4 K/mm3 (1.2-5.4) L 06/02/18 04:52 Abs React Lymphs (Man) 0.0 K/mm3 06/02/18 04:52 Monocytes # (Manual) 0.2 K/mm3 (0.0-0.8) 06/02/18 04:52 Eosinophils # (Manual) 0.0 K/mm3 (0.0-0.4) 06/02/18 04:52 Basophils # (Manual) 0.0 K/mm3 (0.0-0.1) 06/02/18 04:52 Metamyelocytes # 0.0 K/mm3 06/02/18 04:52 Myelocytes # 0.0 K/mm3 06/02/18 04:52 Promyelocytes # 0.0 K/mm3 06/02/18 04:52 Blast Cells # 0.0 K/mm3 06/02/18 04:52 WBC Morphology Not Reportable 06/02/18 04:52 Hypersegmented Neuts Not Reportable 06/02/18 04:52 Hyposegmented Neuts Not Reportable 06/02/18 04:52 Hypogranular Neuts Not Reportable 06/02/18 04:52 Smudge Cells Not Reportable 06/02/18 04:52 Toxic Granulation Not Reportable 06/02/18 04:52 Toxic Vacuolation Not Reportable 06/02/18 04:52 Dohle Bodies Not Reportable 06/02/18 04:52 Pelger-Huet Anomaly Not Reportable 06/02/18 04:52 Ashlee Rods Not Reportable 06/02/18 04:52 Platelet Estimate Consistent w auto 06/02/18 04:52 Clumped Platelets Not Reportable 06/02/18 04:52 Plt Clumps, EDTA Not Reportable 06/02/18 04:52 Large Platelets Not Reportable 06/02/18 04:52 Giant Platelets Not Reportable 06/02/18 04:52 Platelet Satelliting Not Reportable 06/02/18 04:52 Plt Morphology Comment Not Reportable 06/02/18 04:52 RBC Morphology Not Reportable 06/02/18 04:52 Dimorphic RBCs Not Reportable 06/02/18 04:52 Polychromasia Not Reportable 06/02/18 04:52 Hypochromasia Not Reportable 06/02/18 04:52 Poikilocytosis Few 06/02/18 04:52 Anisocytosis Few 06/02/18 04:52 Microcytosis Not Reportable 06/02/18 04:52 Macrocytosis Not Reportable 06/02/18 04:52 Spherocytes Not Reportable 06/02/18 04:52 Pappenheimer Bodies Not Reportable 06/02/18 04:52 Sickle Cells Not Reportable 06/02/18 04:52 Target Cells Not Reportable 06/02/18 04:52 Tear Drop Cells Not Reportable 06/02/18 04:52 Ovalocytes Few 06/02/18 04:52 Helmet Cells Not Reportable 06/02/18 04:52 [place] Bodies Not Reportable 06/02/18 04:52 [place] Rings Not Reportable 06/02/18 04:52 Taylor Cells Not Reportable 06/02/18 04:52 Bite Cells Not Reportable 06/02/18 04:52 Crenated Cell Not Reportable 06/02/18 04:52 Elliptocytes Not Reportable 06/02/18 04:52 Acanthocytes (Spur) Not Reportable 06/02/18 04:52 Rouleaux Not Reportable 06/02/18 04:52 Hemoglobin C Crystals Not Reportable 06/02/18 04:52 Schistocytes Not Reportable 06/02/18 04:52 Malaria parasites Not Reportable 06/02/18 04:52 Darin Bodies Not Reportable 06/02/18 04:52 Hem Pathologist Commnt No 06/02/18 04:52 PT 12.5 Sec. (12.2-14.9) 05/30/18 06:46 INR 0.88 (0.87-1.13) 05/30/18 06:46 APTT 25.2 Sec. (24.2-36.6) 05/30/18 06:46 D-Dimer 212.51 ng/mlDDU (0-234) 04 06:46 POC ABG pH 7.397 (7.35-7.45) 05/30/18 09:01 POC ABG pCO2 51.9 (35-45) H 05/30/18 09:01 POC ABG pO2 110 (80-105) H 05/30/18 09:01 POC ABG HCO3 32.0 (22-26 mml/L) 05/30/18 09:01 POC ABG Total CO2 34 (23-27mmol/L) 05/30/18 09:01 POC ABG O2 Sat 98 05/30/18 09:01 POC ABG Base Excess 7 ((-2) - (+3)mmol/L) 05/30/18 09:01 FiO2 28 % 05/30/18 09:01 Sodium 141 mmol/L (137-145) 06/02/18 04:52 Potassium 4.4 mmol/L (3.6-5.0) 06/02/18 04:52 Chloride 97.0 mmol/L (98-107) L 06/02/18 04:52 Carbon Dioxide 25 mmol/L (22-30) 06/02/18 04:52 Anion Gap 23 mmol/L 06/02/18 04:52 BUN 35 mg/dL (7-17) H 06/02/18 04:52 Creatinine 1.1 mg/dL (0.7-1.2) 06/02/18 04:52 Estimated GFR 60 ml/min 06/02/18 04:52 BUN/Creatinine Ratio 32 % 06/02/18 04:52 Glucose 134 mg/dL (65-100) H 06/02/18 04:52 POC Glucose 124 (70-105) H 06/01/18 23:25 Lactic Acid 0.90 mmol/L (0.7-2.0) 05/30/18 08:34 Calcium 8.9 mg/dL (8.4-10.2) 06/02/18 04:52 Magnesium 2.40 mg/dL (1.7-2.3) H 05/30/18 06:26 Total Bilirubin 0.30 mg/dL (0.1-1.2) 05/30/18 06:26 Direct Bilirubin < 0.2 mg/dL (0-0.2) 05/30/18 06:26 Indirect Bilirubin 0.1 mg/dL 05/30/18 06:26 AST 13 units/L (5-40) 05/30/18 06:26 ALT 9 units/L (7-56) 05/30/18 06:26 Alkaline Phosphatase 60 units/L (35-129) 05/30/18 06:26 Total Creatine Kinase 104 units/L (30-135) 05/30/18 06:26 CK-MB (CK-2) 2.3 ng/mL (0.0-4.0) 05/30/18 06:26 CK-MB (CK-2) Rel Index 2.2 (0-4) 05/30/18 06:26 Troponin T < 0.010 ng/mL (0.00-0.029) 06/01/18 11:43 NT-Pro-B Natriuret Pep 315.0 pg/mL (0-900) 05/30/18 06:46 Total Protein 5.9 g/dL (6.3-8.2) L 05/30/18 06:26 Albumin 4.2 g/dL (3.9-5) 05/30/18 06:26 Albumin/Globulin Ratio 2.5 % 05/30/18 06:26 TSH 1.470 mlU/mL (0.270-4.200) 05/30/18 06:26 Urine Color Yellow (Yellow) 05/30/18 07:57 Urine Turbidity Clear (Clear) 05/30/18 07:57 Urine pH 5.0 (5.0-7.0) 05/30/18 07:57 Ur Specific [place] 1.032 (1.003-1.030) H 05/30/18 07:57 Urine Protein 30 mg/dl mg/dL (Negative) 05/30/18 07:57 Urine Glucose (UA) Neg mg/dL (Negative) 05/30/18 07:57 Urine Ketones Neg mg/dL (Negative) 05/30/18 07:57 Urine Blood Neg (Negative) 05/30/18 07:57 Urine Nitrite Neg (Negative) 05/30/18 07:57 Urine Bilirubin Neg (Negative) 05/30/18 07:57 Urine Urobilinogen 2.0 mg/dL (<2.0) 05/30/18 07:57 Ur Leukocyte Esterase Mod (Negative) 05/30/18 07:57 Urine WBC (Auto) 7.0 /HPF (0.0-6.0) H 05/30/18 07:57 Urine RBC (Auto) 2.0 /HPF (0.0-6.0) 05/30/18 07:57 U Epithel Cells (Auto) 1.0 /HPF (0-13.0) 05/30/18 07:57 Urine Bacteria (Auto) 1+ /HPF (Negative) 05/30/18 07:57 Hyaline Casts 29 /LPF 05/30/18 07:57 Urine Mucus Few /HPF 05/30/18 07:57 Urine Opiates Screen Presumptive negative 05/30/18 07:57 Urine Methadone Screen Presumptive negative 05/30/18 07:57 Ur Barbiturates Screen Presumptive negative 05/30/18 07:57 Ur Phencyclidine Scrn Presumptive negative 05/30/18 07:57 Ur Amphetamines Screen Presumptive negative 05/30/18 07:57 U Benzodiazepines Scrn Presumptive negative 05/30/18 07:57 Urine Cocaine Screen Presumptive negative 05/30/18 07:57 U Marijuana (THC) Screen Presumptive negative 05/30/18 07:57 Drugs of Abuse Note Disclamer 05/30/18 07:57 Plasma/Serum Alcohol < 0.01 % (0-0.07) 05/30/18 06:26 Active Medications - Current Medications Current Medications: Generic Name Dose Route Start Last Admin Trade Name Freq PRN Reason Stop Dose Admin Acetaminophen 650 mg 05/30/18 12:16 06/01/18 09:24 Tylenol PO 650 mg Q4H PRN Administration Pain MILD(1-3)/Fever >100.5/AMOR Albuterol 2.5 mg 05/30/18 12:16 Proventil IH Q4HRT PRN Shortness Of Breath Albuterol/Ipratropium 1 ampul 05/30/18 14:00 06/02/18 10:29 Duoneb *Not For Prn Use* IH 1 ampul Q6HRT ANGELES Administration Amlodipine Besylate 10 mg 05/31/18 15:00 06/02/18 09:10 Norvasc PO 10 mg QDAY ANGELES Administration Aspirin 81 mg 05/31/18 11:00 06/02/18 09:10 Halfprin Ec PO 81 mg QDAY ANGELES Administration Atorvastatin Calcium 20 mg 06/01/18 22:00 06/01/18 22:26 Lipitor PO 20 mg QHS ANGELES Administration Buspirone HCl 7.5 mg 06/01/18 15:00 06/02/18 09:11 Buspar PO 7.5 mg BID ANGELES Administration Duloxetine HCl 60 mg 06/01/18 10:00 06/02/18 09:11 Cymbalta PO 60 mg QDAY ANGELES Administration Enoxaparin Sodium 40 mg 05/30/18 22:00 06/01/18 22:26 Lovenox SUB-Q 40 mg QDAY@2200 ANGELES Administration Furosemide 40 mg 05/31/18 15:00 06/02/18 09:11 Lasix PO 40 mg QDAY ANGELES Administration Losartan Potassium 50 mg 05/31/18 15:00 06/02/18 09:09 Cozaar PO 50 mg QDAY ANGELES Administration Methylprednisolone Sodium Succinate 40 mg 06/02/18 10:00 06/02/18 09:17 Solu-Medrol IV 40 mg Q8H ANGELES Administration Metoprolol Tartrate 25 mg 06/02/18 14:00 Lopressor PO TID ANGELES Ondansetron HCl 4 mg 05/30/18 12:16 06/02/18 09:09 Zofran IV 4 mg Q8H PRN Administration Nausea And Vomiting Oxycodone HCl 15 mg 05/31/18 02:58 06/02/18 09:10 Roxicodone PO 15 mg Q6H PRN Administration Pain, Moderate (4-6) Sodium Chloride 10 ml 05/30/18 22:00 06/01/18 22:27 Sodium Chloride Flush Syringe 10 Ml IV 10 ml BID ANGELES Administration Sodium Chloride 10 ml 05/30/18 12:16 Sodium Chloride Flush Syringe 10 Ml IV PRN PRN LINE FLUSH Trazodone HCl 100 mg 05/31/18 22:00 06/01/18 22:26 Desyrel PO 100 mg HS ANGELES Administration
[2018-06-02] MEDS: SODIUM CHLORIDE FLUSH SYRINGE 10 ML IV SCH ×2 (14:16→21:03)
[2018-06-02] MEDS ORDERED: DUONEB *Not for PRN Use IH ONE (14:26)
[2018-06-02] MEDS: SODIUM CHLORIDE FLUSH SYRINGE 10 ML IV PRN (18:11)
[2018-06-02] MEDS: DESYREL PO SCH (21:02)
[2018-06-02] MEDS: LOVENOX SUB-Q SCH (21:02)
[2018-06-03] MEDS: SOLU-Medrol IV SCH ×3 (01:05→17:23)
[2018-06-03] MEDS: DUONEB *Not for PRN Use IH SCH ×4 (03:08→20:46)
[2018-06-03] MEDS: ROXICODONE PO PRN ×4 (03:50→21:52)
[2018-06-03 05:45] LABS: Hematocrit 34.2 % (30.3-42.9); Mean Corpuscular HGB Conc 32 % (30-34); Mean Corpuscular Volume 92 fl (79-97); Platelet Count 166 K/mm3 (140-440); Red Blood Count 3.71 M/mm3 (3.65-5.03); Red Cell Distribution Width 17.6 % (13.2-15.2)
[2018-06-03 09:16] LABS: Basophils % (Manual) 0 % (0.0-1.8); Eosinophils % (Manual) 0 % (0.0-4.3); Total Cells Counted 100
[2018-06-03 09:17] LABS: Anisocytosis Few; Ovalocytes Few; Platelet Estimate Consistent w Auto; Poikilocytosis Few
[2018-06-03] MEDS: CYMBALTA PO SCH (09:24)
[2018-06-03] MEDS: HALFPRIN EC PO SCH (09:24)
[2018-06-03] MEDS: BUSPAR PO SCH ×2 (09:24→21:51)
[2018-06-03] MEDS: NORVASC PO SCH (09:25)
[2018-06-03] MEDS: LASIX PO SCH (09:25)
[2018-06-03] MEDS: COZAAR PO SCH (09:25)
[2018-06-03] MEDS: SODIUM CHLORIDE FLUSH SYRINGE 10 ML IV SCH (09:28)
[2018-06-03] MEDS: LOPRESSOR PO SCH ×2 (09:28→21:49)
--- NOTE | 2018-06-03 11:04 | Progress Note ---
Assessment and Plan Pt reports complete resolution of cp and palpitations, states she rested well overnight and is tolerating activity around room, c/o persistent SOB and cough. She is requesting pulmonary consultation - she states that she sees Dr. Edwards and that he stopped by several days ago and told her to ask the hospitalist to consult him. Pt noted to have SR/ST on telemetry. Suspect physiologic secondary to ? opioid/benzo withdrawl, COPD exac, respiratory failure, etc. Optimize HR - Increase lopressor. The patient has been seen in conjunction with Dr. Gilliland who agrees with the assessment and plan of care. - Patient Problems (1) Atypical chest pain Current Visit: Yes Status: Resolved (2) CO2 retention Current Visit: Yes Status: Acute (3) COPD exacerbation Current Visit: Yes Status: Acute (4) Chronic narcotic dependence Current Visit: Yes Status: Acute (5) Benzodiazepine dependence Current Visit: No Status: Acute (6) Depression Current Visit: No Status: Acute (7) Narcotic dependence Current Visit: No Status: Acute (8) Opioid withdrawal delirium, acute, hyperactive Current Visit: No Status: Acute (9) Rheumatoid arthritis Current Visit: No Status: Acute (10) Tobacco abuse Current Visit: No Status: Acute (11) Anxiety Current Visit: No Status: Chronic (12) Chronic low back pain Current Visit: No Status: Chronic Qualifiers: Back pain laterality: midline Sciatica presence: without sciatica Qualified Code(s): M54.5 - Low back pain; G89.29 - Other chronic pain (13) HTN (hypertension) Current Visit: No Status: Chronic Qualifiers: Hypertension type: essential hypertension Qualified Code(s): I10 - Essential (primary) hypertension (14) Pulmonary hypertension, moderate to severe Current Visit: No Status: Chronic Subjective Date of service: 06/03/18 Principal diagnosis: cp Interval history: pt resting in bed, states she is feeling very well, cp and palpitations improved. tele reviewed - pt in sinus tach with HR 100s - 120s overnight. Objective Last Vital Signs Temp 97.9 F 06/03/18 07:27 Pulse 93 H 06/03/18 10:00 Resp 20 06/03/18 08:22 BP 142/81 06/03/18 09:28 Pulse Ox 95 06/03/18 09:56 - Physical Examination General: No Apparent Distress HEENT: Positive: PERRL, Normocephaly, Mucus Membranes Moist Neck: Positive: neck supple Cardiac: Positive: Regular Rhythm, S1/S2 Lungs: Positive: Decreased Breath Sounds Neuro: Positive: Grossly Intact Abdomen: Negative: Tender Skin: Negative: Rash, Wound Musculoskeletal: No Pain Extremities: Absent: edema - Labs and Meds CBC 06/03/18 Range/Units 05:27 WBC 13.1 H (4.5-11.0) K/mm3 RBC 3.71 (3.65-5.03) M/mm3 Hgb 11.0 (10.1-14.3) gm/dl Hct 34.2 (30.3-42.9) % Plt Count 166 (140-440) K/mm3 Comprehensive Metabolic Panel 06/03/18 Range/Units 05:27 Sodium 139 (137-145) mmol/L Potassium 4.3 (3.6-5.0) mmol/L Chloride 98.2 (98-107) mmol/L Carbon Dioxide 26 (22-30) mmol/L BUN 38 H (7-17) mg/dL Creatinine 1.1 (0.7-1.2) mg/dL Glucose 152 H (65-100) mg/dL Calcium 9.0 (8.4-10.2) mg/dL - Imaging and Cardiology EKG: report reviewed, image reviewed Echo: report reviewed (01/2018: EF 50-55%, mild to mod LVH, mild TR, RVSP 48mmHg, trivial pericardial effusion.)
--- NOTE | 2018-06-03 13:27 | Progress Note ---
Assessment and Plan Assessment and plan: Atypical chest pain. Pt with negative CT for PE and Lexiscan on recent hospitalization. Cardiology said consider cardiac cath. Acute COPD exacerbation. Patient will be treated with IV steroids, bronc hodilators/nebulizers Leukocytosis likely due to high-dose IV steroid, trending down. Pulmonary hypertension. Chronic systolic heart failure, compensated. EF 45%. continue lasix. Opiate and benzodiazepine dependence. Cont meds per psych recommendations Major depression and anxiety. Psychiatry following Paroxysmal atrial tachycardia. Hypertension. Resume antihypertensive medications. Rheumatoid arthritis. Continue current medications. will follow with compensation supervisor as an O/P. DVT prophylaxis; Lovenox Disposition; continue inpatient care with cardiology input for cardiac cath. History Interval history: Patient was and evaluated this morning, complaining of shortness of breath and joint pain due to rheumatoid arthritis Hospitalist Physical - Physical exam Narrative exam: Not in cardiopulmonary distress. The patient appeared well nourished and normally developed. Vital signs as documented. Head exam is unremarkable. No scleral icterus . Neck is without jugular venous distension, thyromegaly, or carotid bruits. Lungs are clear to auscultation. Cardiac exam reveals regular rate and Rhythm. Abdominal exam reveals normal bowel sounds. Extremities are nonedematous and both femoral and pedal pulses are normal. 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 No focal weakness. - Constitutional Vitals: Temp Pulse Resp BP Pulse Ox 97.9 F 93 H 20 142/81 95 06/03/18 07:27 06/03/18 10:00 06/03/18 08:22 06/03/18 09:28 06/03/18 09:56 General appearance: Present: no acute distress, well-nourished Results - Labs CBC & Chem 7: 06/03/18 05:27 06/03/18 05:27 Labs: Laboratory Last Values WBC 13.1 K/mm3 (4.5-11.0) H 06/03/18 05:27 RBC 3.71 M/mm3 (3.65-5.03) 06/03/18 05:27 Hgb 11.0 gm/dl (10.1-14.3) 06/03/18 05:27 Hct 34.2 % (30.3-42.9) 06/03/18 05:27 MCV 92 fl (79-97) 06/03/18 05:27 MCH 30 pg (28-32) 06/03/18 05:27 MCHC 32 % (30-34) 06/03/18 05:27 RDW 17.6 % (13.2-15.2) H 06/03/18 05:27 Plt Count 166 K/mm3 (140-440) 06/03/18 05:27 Lymph % (Auto) 16.7 % (13.4-35.0) 05/30/18 06:26 Pepin % (Auto) 7.8 % (0.0-7.3) H 05/30/18 06:26 Eos % (Auto) 0.9 % (0.0-4.3) 05/30/18 06:26 Baso % (Auto) 0.3 % (0.0-1.8) 05/30/18 06:26 Lymph # 1.8 K/mm3 (1.2-5.4) 05/30/18 06:26 Pepin # 0.8 K/mm3 (0.0-0.8) 05/30/18 06:26 Eos # 0.1 K/mm3 (0.0-0.4) 05/30/18 06:26 Baso # 0.0 K/mm3 (0.0-0.1) 05/30/18 06:26 Add Manual Diff Complete 06/03/18 05:27 Total Counted 100 06/03/18 05:27 Seg Neutrophils % [place] Management Professor 06/03/18 05:27 Seg Neuts % (Manual) 96.0 % (40.0-70.0) H 06/03/18 05:27 Band Neutrophils % 0 % 06/03/18 05:27 Lymphocytes % (Manual) 3.0 % (13.4-35.0) L 06/03/18 05:27 Reactive Lymphs % (Man) 0 % 06/03/18 05:27 Monocytes % (Manual) 1.0 % (0.0-7.3) 06/03/18 05:27 Eosinophils % (Manual) 0 % (0.0-4.3) 06/03/18 05:27 Basophils % (Manual) 0 % (0.0-1.8) 06/03/18 05:27 Metamyelocytes % 0 % 06/03/18 05:27 Myelocytes % 0 % 06/03/18 05:27 Promyelocytes % 0 % 06/03/18 05:27 Blast Cells % 0 % 06/03/18 05:27 Nucleated RBC % Not Reportable 06/03/18 05:27 Seg Neutrophils # 7.8 K/mm3 (1.8-7.7) H 05/30/18 06:26 Seg Neutrophils # Man 12.6 K/mm3 (1.8-7.7) H 06/03/18 05:27 Band Neutrophils # 0.0 K/mm3 06/03/18 05:27 Lymphocytes # (Manual) 0.4 K/mm3 (1.2-5.4) L 06/03/18 05:27 Abs React Lymphs (Man) 0.0 K/mm3 06/03/18 05:27 Monocytes # (Manual) 0.1 K/mm3 (0.0-0.8) 06/03/18 05:27 Eosinophils # (Manual) 0.0 K/mm3 (0.0-0.4) 06/03/18 05:27 Basophils # (Manual) 0.0 K/mm3 (0.0-0.1) 06/03/18 05:27 Metamyelocytes # 0.0 K/mm3 06/03/18 05:27 Myelocytes # 0.0 K/mm3 06/03/18 05:27 Promyelocytes # 0.0 K/mm3 06/03/18 05:27 Blast Cells # 0.0 K/mm3 06/03/18 05:27 WBC Morphology Not Reportable 06/03/18 05:27 Hypersegmented Neuts Not Reportable 06/03/18 05:27 Hyposegmented Neuts Not Reportable 06/03/18 05:27 Hypogranular Neuts Not Reportable 06/03/18 05:27 Smudge Cells Not Reportable 06/03/18 05:27 Toxic Granulation Not Reportable 06/03/18 05:27 Toxic Vacuolation Not Reportable 06/03/18 05:27 Dohle Bodies Not Reportable 06/03/18 05:27 Pelger-Huet Anomaly Not Reportable 06/03/18 05:27 Ashlee Rods Not Reportable 06/03/18 05:27 Platelet Estimate Consistent w auto 06/03/18 05:27 Clumped Platelets Not Reportable 06/03/18 05:27 Plt Clumps, EDTA Not Reportable 06/03/18 05:27 Large Platelets Not Reportable 06/03/18 05:27 Giant Platelets Not Reportable 06/03/18 05:27 Platelet Satelliting Not Reportable 06/03/18 05:27 Plt Morphology Comment Not Reportable 06/03/18 05:27 RBC Morphology Not Reportable 06/03/18 05:27 Dimorphic RBCs Not Reportable 06/03/18 05:27 Polychromasia Not Reportable 06/03/18 05:27 Hypochromasia Not Reportable 06/03/18 05:27 Poikilocytosis Few 06/03/18 05:27 Anisocytosis Few 06/03/18 05:27 Microcytosis Not Reportable 06/03/18 05:27 Macrocytosis Not Reportable 06/03/18 05:27 Spherocytes Not Reportable 06/03/18 05:27 Pappenheimer Bodies Not Reportable 06/03/18 05:27 Sickle Cells Not Reportable 06/03/18 05:27 Target Cells Not Reportable 06/03/18 05:27 Tear Drop Cells Not Reportable 06/03/18 05:27 Ovalocytes Few 06/03/18 05:27 Helmet Cells Not Reportable 06/03/18 05:27 [place] Bodies Not Reportable 06/03/18 05:27 [place] Rings Not Reportable 06/03/18 05:27 [place] Cells Not Reportable 06/03/18 05:27 Bite Cells Not Reportable 06/03/18 05:27 Crenated Cell Not Reportable 06/03/18 05:27 Elliptocytes Not Reportable 06/03/18 05:27 Acanthocytes (Spur) Not Reportable 06/03/18 05:27 Rouleaux Not Reportable 06/03/18 05:27 Hemoglobin C Crystals Not Reportable 06/03/18 05:27 Schistocytes Not Reportable 06/03/18 05:27 Malaria parasites Not Reportable 06/03/18 05:27 Darin Bodies Not Reportable 06/03/18 05:27 Hem Pathologist Commnt No 06/03/18 05:27 PT 12.5 Sec. (12.2-14.9) 05/30/18 06:46 INR 0.88 (0.87-1.13) 05/30/18 06:46 APTT 25.2 Sec. (24.2-36.6) 05/30/18 06:46 D-Dimer 212.51 ng/mlDDU (0-234) 05/30/18 06:46 POC ABG pH 7.397 (7.35-7.45) 05/30/18 09:01 POC ABG pCO2 51.9 (35-45) H 05/30/18 09:01 POC ABG pO2 110 (80-105) H 05/30/18 09:01 POC ABG HCO3 32.0 (22-26 mml/L) 05/30/18 09:01 POC ABG Total CO2 34 (23-27mmol/L) 05/30/18 09:01 POC ABG O2 Sat 98 05/30/18 09:01 POC ABG Base Excess 7 ((-2) - (+3)mmol/L) 05/30/18 09:01 FiO2 28 % 05/30/18 09:01 Sodium 139 mmol/L (137-145) 06/03/18 05:27 Potassium 4.3 mmol/L (3.6-5.0) 06/03/18 05:27 Chloride 98.2 mmol/L (98-107) 06/03/18 05:27 Carbon Dioxide 26 mmol/L (22-30) 06/03/18 05:27 Anion Gap 19 mmol/L 06/03/18 05:27 BUN 38 mg/dL (7-17) H 06/03/18 05:27 Creatinine 1.1 mg/dL (0.7-1.2) 06/03/18 05:27 Estimated GFR 60 ml/min 06/03/18 05:27 BUN/Creatinine Ratio 35 % 06/03/18 05:27 Glucose 152 mg/dL (65-100) H 06/03/18 05:27 POC Glucose 124 (70-105) H 06/01/18 23:25 Lactic Acid 0.90 mmol/L (0.7-2.0) 05/30/18 08:34 Calcium 9.0 mg/dL (8.4-10.2) 06/03/18 05:27 Magnesium 2.40 mg/dL (1.7-2.3) H 05/30/18 06:26 Total Bilirubin 0.30 mg/dL (0.1-1.2) 05/30/18 06:26 Direct Bilirubin < 0.2 mg/dL (0-0.2) 05/30/18 06:26 Indirect Bilirubin 0.1 mg/dL 05/30/18 06:26 AST 13 units/L (5-40) 05/30/18 06:26 ALT 9 units/L (7-56) 05/30/18 06:26 Alkaline Phosphatase 60 units/L (35-129) 05/30/18 06:26 Total Creatine Kinase 104 units/L (30-135) 05/30/18 06:26 CK-MB (CK-2) 2.3 ng/mL (0.0-4.0) 05/30/18 06:26 CK-MB (CK-2) Rel Index 2.2 (0-4) 05/30/18 06:26 Troponin T < 0.010 ng/mL (0.00-0.029) 06/01/18 11:43 NT-Pro-B Natriuret Pep 315.0 pg/mL (0-900) 05/30/18 06:46 Total Protein 5.9 g/dL (6.3-8.2) L 05/30/18 06:26 Albumin 4.2 g/dL (3.9-5) 05/30/18 06:26 Albumin/Globulin Ratio 2.5 % 05/30/18 06:26 TSH 1.470 mlU/mL (0.270-4.200) 05/30/18 06:26 Urine Color Yellow (Yellow) 05/30/18 07:57 Urine Turbidity Clear (Clear) 05/30/18 07:57 Urine pH 5.0 (5.0-7.0) 05/30/18 07:57 Ur Specific [place] 1.032 (1.003-1.030) H 05/30/18 07:57 Urine Protein 30 mg/dl mg/dL (Negative) 05/30/18 07:57 Urine Glucose (UA) Neg mg/dL (Negative) 05/30/18 07:57 Urine Ketones Neg mg/dL (Negative) 05/30/18 07:57 Urine Blood Neg (Negative) 05/30/18 07:57 Urine Nitrite Neg (Negative) 05/30/18 07:57 Urine Bilirubin Neg (Negative) 05/30/18 07:57 Urine Urobilinogen 2.0 mg/dL (<2.0) 05/30/18 07:57 Ur Leukocyte Esterase Mod (Negative) 05/30/18 07:57 Urine WBC (Auto) 7.0 /HPF (0.0-6.0) H 05/30/18 07:57 Urine RBC (Auto) 2.0 /HPF (0.0-6.0) 05/30/18 07:57 U Epithel Cells (Auto) 1.0 /HPF (0-13.0) 05/30/18 07:57 Urine Bacteria (Auto) 1+ /HPF (Negative) 05/30/18 07:57 Hyaline Casts 29 /LPF 05/30/18 07:57 Urine Mucus Few /HPF 05/30/18 07:57 Urine Opiates Screen Presumptive negative 05/30/18 07:57 Urine Methadone Screen Presumptive negative 05/30/18 07:57 Ur Barbiturates Screen Presumptive negative 05/30/18 07:57 Ur Phencyclidine Scrn Presumptive negative 05/30/18 07:57 Ur Amphetamines Screen Presumptive negative 05/30/18 07:57 U Benzodiazepines Scrn Presumptive negative 05/30/18 07:57 Urine Cocaine Screen Presumptive negative 05/30/18 07:57 U Marijuana (THC) Screen Presumptive negative 05/30/18 07:57 Drugs of Abuse Note Disclamer 05/30/18 07:57 Plasma/Serum Alcohol < 0.01 % (0-0.07) 05/30/18 06:26 Active Medications - Current Medications Current Medications: Generic Name Dose Route Start Last Admin Trade Name Freq PRN Reason Stop Dose Admin Acetaminophen 650 mg 05/30/18 12:16 06/01/18 09:24 Tylenol PO 650 mg Q4H PRN Administration Pain MILD(1-3)/Fever >100.5/AMOR Albuterol 2.5 mg 05/30/18 12:16 Proventil IH Q4HRT PRN Shortness Of Breath Albuterol/Ipratropium 1 ampul 05/30/18 14:00 06/03/18 08:25 Duoneb *Not For Prn Use* IH 1 ampul Q6HRT ANGELES Administration Amlodipine Besylate 10 mg 05/31/18 15:00 06/03/18 09:25 Norvasc PO 10 mg QDAY ANGELES Administration Aspirin 81 mg 05/31/18 11:00 06/03/18 09:24 Halfprin Ec PO 81 mg QDAY ANGELES Administration Atorvastatin Calcium 20 mg 06/01/18 22:00 06/02/18 21:02 Lipitor PO 20 mg QHS ANGELES Administration Buspirone HCl 7.5 mg 06/01/18 15:00 06/03/18 09:24 Buspar PO 7.5 mg BID ANGELES Administration Duloxetine HCl 60 mg 06/01/18 10:00 06/03/18 09:24 Cymbalta PO 60 mg QDAY ANGELES Administration Enoxaparin Sodium 40 mg 05/30/18 22:00 06/02/18 21:02 Lovenox SUB-Q 40 mg QDAY@2200 ANGELES Administration Furosemide 40 mg 05/31/18 15:00 06/03/18 09:25 Lasix PO 40 mg QDAY ANGELES Administration Losartan Potassium 50 mg 05/31/18 15:00 06/03/18 09:25 Cozaar PO 50 mg QDAY ANGELES Administration Methylprednisolone Sodium Succinate 40 mg 06/02/18 10:00 06/03/18 09:34 Solu-Medrol IV 40 mg Q8H ANGELES Administration Metoprolol Tartrate 50 mg 06/03/18 22:00 Lopressor PO BID ANGELES Ondansetron HCl 4 mg 05/30/18 12:16 06/02/18 09:09 Zofran IV 4 mg Q8H PRN Administration Nausea And Vomiting Oxycodone HCl 15 mg 05/31/18 02:58 06/03/18 09:34 Roxicodone PO 15 mg Q6H PRN Administration Pain, Moderate (4-6) Sodium Chloride 10 ml 05/30/18 22:00 06/03/18 09:28 Sodium Chloride Flush Syringe 10 Ml IV 10 ml BID ANGELES Administration Sodium Chloride 10 ml 05/30/18 12:16 06/02/18 18:11 Sodium Chloride Flush Syringe 10 Ml IV 10 ml PRN PRN Administration LINE FLUSH Trazodone HCl 100 mg 05/31/18 22:00 06/02/18 21:02 Desyrel PO 100 mg HS ANGELES Administration
[2018-06-03] MEDS ORDERED: XANAX PO PRN (16:54)
--- NOTE | 2018-06-03 18:13 | Consultation ---
History of Present Illness Consult date: 06/03/18 Reason for consult: dyspnea, cough, chest pain, COPD History of present illness: PULMONARY AND CRITICAL CARE CONSULTATION. DR. MEYER THANK YOU FOR ASKING US TO PARTICIPATE IN THE CARE OF THIS PATIENT. 67-year-old female who presents to the emergency department with significant past medical history of moderate to severe pulmonary hypertension, chronic respiratory failure, COPD, hypertension, hyperlipidemia, benzodiazepine and opioid dependence and rheumatoid arthritis complaining of chest pain. The patient was recently admitted here and discharged on 05/27/18 with complaints of chest pain at that time. The patient underwent studies including CT scan that was negative for PE and Lexiscan that was negative for ischemia. Patient was also seen by cardiology in consultation. Patient presents to the ER with similar complaints now associated with hypercapnic respiratory failure (PCO2 52). Patient denies any fever or chills. No cough or cold symptoms. No headache or visual disturbances. No nausea, vomiting or diarrhea. Patient has history of smoking for many years 1 pack x 30 years. Stopped smoking 4 years ago.Denies alcohol or drug abuse.Patient has history of COPD and on home O2. still complaining chest tightness cough and shortness of breath. Patient presently on 3 litres O2. O2 saturation 97%.Patient is on I/V solumedrol 40 mg I/V q 8 hours and also on aerosolized bronchodilators. Past History Past Medical History: COPD, hypertension, hyperlipidemia, other (rheumatoid arthritis, paroxysmal atrial tachycardia) Past Surgical History: No surgical history Social history: other (benzodiazepine and opioid dependence) Family history: no significant family history Medications and Allergies Allergies Allergy/AdvReac Type Severity Reaction Status Date / Time No Known Allergies Allergy Verified 05/22/18 09:54 Home Medications Medication Instructions Recorded Confirmed Last Taken Type predniSONE [Prednisone] 50 mg PO DAILY #7 tablet 03/05/18 05/30/18 1 Day Ago Rx ~05/29/18 Amlodipine Besylate [Norvasc] 10 mg PO DAILY 05/22/18 05/30/18 1 Day Ago History ~05/29/18 Buprenorphine HCl/Naloxone HCl 1 film SL DAILY 05/22/18 05/30/18 1 Day Ago History [Suboxone 8 mg-2 mg SL Film] ~05/29/18 cloNIDine-TTS PATCH [Catapres-Tts 0.2 mg TD QWEEK 05/22/18 05/30/18 1 Day Ago History Patch] ~05/29/18 ALBUTEROL NEB's [Proventil 0.083% 2.5 mg IH Q4HRT PRN #120 nebu 05/26/18 05/30/18 1 Day Ago Rx NEBS] ~05/29/18 Albuterol Sulfate [Ventolin Hfa] 2 puff IH Q4H #1 hfa.aer.ad 05/26/18 05/30/18 1 Day Ago Rx ~05/29/18 Budesonide/Formoterol Fumarate 10.2 gm IH BID #1 hfa.aer.ad 05/26/18 05/30/18 1 Day Ago Rx [Symbicort 160-4.5 Mcg Inhaler] ~05/29/18 Furosemide [Lasix TAB] 40 mg PO QDAY #30 tablet 05/26/18 05/30/18 1 Day Ago Rx ~05/29/18 LORazepam [Ativan] 0.5 mg PO BID #20 tablet 05/26/18 05/30/18 1 Day Ago Rx ~05/29/18 Potassium Chloride [K-Dur] 20 meq PO DAILY #30 tablet 05/26/18 05/30/18 1 Day Ago Rx ~05/29/18 Tiotropium [place] [Spiriva 1 puff IH DAILY #1 mist.inhal 05/26/18 05/30/18 1 Day Ago Rx Respimat] ~05/29/18 Active Meds: Active Medications Acetaminophen (Tylenol) 650 mg PO Q4H PRN PRN Reason: Pain MILD(1-3)/Fever >100.5/AMOR Last Admin: 06/01/18 09:24 Dose: 650 mg Documented by: Albuterol (Proventil) 2.5 mg IH Q4HRT PRN PRN Reason: Shortness Of Breath Albuterol/Ipratropium (Duoneb *Not For Prn Use*) 1 ampul IH Q6HRT [facility] Last Admin: 06/03/18 14:30 Dose: 1 ampul Documented by: Alprazolam (Xanax) 0.5 mg PO Q8H PRN PRN Reason: Anxiety Last Admin: 06/03/18 17:24 Dose: 0.5 mg Documented by: Amlodipine Besylate (Norvasc) 10 mg PO QDAY [facility] Last Admin: 06/03/18 09:25 Dose: 10 mg Documented by: Aspirin (Halfprin Ec) 81 mg PO QDAY [facility] Last Admin: 06/03/18 09:24 Dose: 81 mg Documented by: Atorvastatin Calcium (Lipitor) 20 mg PO QHS [facility] Last Admin: 06/02/18 21:02 Dose: 20 mg Documented by: Buspirone HCl (Buspar) 7.5 mg PO BID [facility] Last Admin: 06/03/18 09:24 Dose: 7.5 mg Documented by: Duloxetine HCl (Cymbalta) 60 mg PO QDAY [facility] Last Admin: 06/03/18 09:24 Dose: 60 mg Documented by: Enoxaparin Sodium (Lovenox) 40 mg SUB-Q QDAY@2200 [facility] Last Admin: 06/02/18 21:02 Dose: 40 mg Documented by: Furosemide (Lasix) 40 mg PO QDAY [facility] Last Admin: 06/03/18 09:25 Dose: 40 mg Documented by: Losartan Potassium (Cozaar) 50 mg PO QDAY [facility] Last Admin: 06/03/18 09:25 Dose: 50 mg Documented by: Methylprednisolone Sodium Succinate (Solu-Medrol) 40 mg IV Q8H [facility] Last Admin: 06/03/18 17:23 Dose: 40 mg Documented by: Metoprolol Tartrate (Lopressor) 50 mg PO BID [facility] Ondansetron HCl (Zofran) 4 mg IV Q8H PRN PRN Reason: Nausea And Vomiting Last Admin: 06/02/18 09:09 Dose: 4 mg Documented by: Oxycodone HCl (Roxicodone) 15 mg PO Q6H PRN PRN Reason: Pain, Moderate (4-6) Last Admin: 06/03/18 14:45 Dose: 15 mg Documented by: Sodium Chloride (Sodium Chloride Flush Syringe 10 Ml) 10 ml IV BID [facility] Last Admin: 06/03/18 09:28 Dose: 10 ml Documented by: Sodium Chloride (Sodium Chloride Flush Syringe 10 Ml) 10 ml IV PRN PRN PRN Reason: LINE FLUSH Last Admin: 06/02/18 18:11 Dose: 10 ml Documented by: Trazodone HCl (Desyrel) [address] [facility] Last Admin: 06/02/18 21:02 Dose: 100 mg Documented by: Review of Systems All systems: negative Physical Examination Vital signs: Vital Signs Pulse Resp 98 H 15 05/30/18 05:34 05/30/18 05:34 General appearance: alert, appears uncomfortable ENT: oropharynx moist Neck: supple, no JVD Ascultation: Bilateral: diminished breath sounds, other (Prolonged expiratory phase.) Cardiovascular: regular rate and rhythm Gastrointestinal: normoactive bowel sounds, soft, non-tender Integumentary: normal Extremities: no cyanosis, no edema Musculoskeletal: no deformities normal mental status, non-focal exam, pupils equal and round, CN II-XII normal anxious Results - Laboratory Findings CBC and BMP: 06/03/18 05:27 06/03/18 05:27 ABG POC ABG pH 7.397 (7.35-7.45) 05/30/18 09:01 POC ABG pCO2 51.9 (35-45) H 05/30/18 09:01 POC ABG pO2 110 (80-105) H 05/30/18 09:01 POC ABG HCO3 32.0 (22-26 mml/L) 05/30/18 09:01 POC ABG Total CO2 34 (23-27mmol/L) 05/30/18 09:01 POC ABG O2 Sat 98 05/30/18 09:01 PT/INR, D-dimer PT 12.5 Sec. (12.2-14.9) 05/30/18 06:46 INR 0.88 (0.87-1.13) 05/30/18 06:46 D-Dimer 212.51 ng/mlDDU (0-234) 05/30/18 06:46 Abnormal lab findings: Abnormal Labs 05/30/18 05/30/18 05/30/18 06:26 06:26 06:26 WBC RDW 17.0 H [place] % (Auto) 7.8 H Seg Neutrophils % 74.3 H Seg Neuts % (Manual) Lymphocytes % (Manual) Seg Neutrophils # 7.8 H Seg Neutrophils # Man Lymphocytes # (Manual) POC ABG pCO2 POC ABG pO2 Chloride BUN 24 H Creatinine 1.3 H Glucose 102 H POC Glucose Magnesium 2.40 H Total Protein 5.9 L Ur Specific [place] Urine WBC (Auto) 05/30/18 05/30/18 05/31/18 07:57 09:01 05:20 WBC RDW 17.3 H [place] % (Auto) Seg Neutrophils % Seg Neuts % (Manual) 95.0 H Lymphocytes % (Manual) 4.0 L Seg Neutrophils # Seg Neutrophils # Man 9.6 H Lymphocytes # (Manual) 0.4 L POC ABG pCO2 51.9 H POC ABG pO2 110 H Chloride BUN Creatinine Glucose POC Glucose Magnesium Total Protein Ur Specific [place] 1.032 H Urine WBC (Auto) 7.0 H 05/31/18 06/01/18 06/02/18 05:20 23:25 04:52 WBC 18.4 H RDW 17.2 H [place] % (Auto) Seg Neutrophils % Seg Neuts % (Manual) 97.0 H Lymphocytes % (Manual) 2.0 L Seg Neutrophils # Seg Neutrophils # Man 17.8 H Lymphocytes # (Manual) 0.4 L POC ABG pCO2 POC ABG pO2 Chloride BUN 37 H Creatinine Glucose 153 H POC Glucose 124 H Magnesium Total Protein Ur Specific [place] Urine WBC (Auto) 06/02/18 06/03/18 06/03/18 04:52 05:27 05:27 WBC 13.1 H RDW 17.6 H [place] % (Auto) Seg Neutrophils % Seg Neuts % (Manual) 96.0 H Lymphocytes % (Manual) 3.0 L Seg Neutrophils # Seg Neutrophils # Man 12.6 H Lymphocytes # (Manual) 0.4 L POC ABG pCO2 POC ABG pO2 Chloride 97.0 L BUN 35 H 38 H Creatinine Glucose 134 H 152 H POC Glucose Magnesium Total Protein Ur Specific [place] Urine WBC (Auto) - Diagnostic Findings Chest x-ray: report reviewed (Reported no acute cardiopulmonary abnormalities.), image reviewed Assessment and Plan 67-year-old female who presents to the emergency department with significant past medical history of moderate to severe pulmonary hypertension, chronic respiratory failure, COPD, hypertension, hyperlipidemia, benzodiazepine and opioid dependence and rheumatoid arthritis complaining of chest pain. The patient was recently admitted here and discharged on 05/27/18 with complaints of chest pain at that time. The patient underwent studies including CT scan that was negative for PE and Lexiscan that was negative for ischemia. Patient was also seen by cardiology in consultation. Patient presents to the ER with similar complaints now associated with hypercapnic respiratory failure (PCO2 52). Patient denies any fever or chills. No cough or cold symptoms. No headache or visual disturbances. No nausea, vomiting or diarrhea. Patient has history of smoking for many years 1 pack x 30 years. Stopped smoking 4 years ago.Denies alcohol or drug abuse.Patient has history of COPD and on home O2. still complaining chest tightness cough and shortness of breath. Patient presently on 3 litres O2. O2 saturation 97%.Patient is on I/V solumedrol 40 mg I/V q 8 hours and also on aerosolized bronchodilators. - Patient Problems (1) Atypical chest pain Current Visit: Yes Status: Acute Plan to address problem: Patient is on Oxycodone. (2) COPD exacerbation Current Visit: Yes Status: Acute Plan to address problem: O2 3 litres via nasal canula. Albuterol/atrovent aerosol treatments q 6 hours. Increase solumedrol 100 mg I/V q 8 hours. Continue S/C Lovenox. (3) Acute respiratory failure Current Visit: No Status: Acute Qualifiers: Respiratory failure complication: hypoxia Qualified Code(s): J96.01 - Acute respiratory failure with hypoxia Plan to address problem: O2 3 litres via nasal canula. Albuterol/atrovent aerosol treatments q 6 hours. Increase solumedrol 100 mg I/V q 8 hours. Continue S/C Lovenox (4) Atelectasis of right lung Current Visit: No Status: Acute Plan to address problem: Deep breathing and coughing. Chest PT qid. Incentive spirometry. (5) Chronic narcotic dependence Current Visit: Yes Status: Acute Plan to address problem: Management as per primary care and ppsychiatry.
[2018-06-03] MEDS: DESYREL PO SCH (21:50)
[2018-06-03] MEDS: LOVENOX SUB-Q SCH (21:53)
[2018-06-04] MEDS: DUONEB *Not for PRN Use IH SCH ×4 (02:38→20:07)
[2018-06-04] MEDS: SOLU-Medrol IV SCH ×3 (03:41→16:19)
[2018-06-04] MEDS: SODIUM CHLORIDE FLUSH SYRINGE 10 ML IV SCH ×2 (03:42→11:49)
[2018-06-04] MEDS: ROXICODONE PO PRN (03:47)
--- NOTE | 2018-06-04 07:29 | Progress Note ---
Assessment and Plan Assessment and plan: Atypical chest pain. Pt with negative CT for PE and Lexiscan on recent hospitalization. Cardiology said no further cardiac workup. Acute COPD exacerbation. Patient is on IV steroids, bronchodilators/nebulizers. Pulmonary consulted and recommended to increase Solu-Medrol 100mg 3 times a day Leukocytosis likely due to high-dose IV steroid, trending down. Pulmonary hypertension; pulmonary following. Chronic systolic heart failure, compensated. EF 45%. continue lasix. Opiate and benzodiazepine dependence; was evaluated by psychiatric and recommended no benzos or opoids. Major depression and anxiety; BuSpar Cymbalta and hydroxyzine. Paroxysmal atrial tachycardia; per cardiology increase metoprolol Hypertension; continue antihypertensives Rheumatoid arthritis. Continue current medications. will follow with counter intelligence technician as an O/P. DVT prophylaxis; Lovenox Disposition; Per pulmonary. Patient is asking for pain medicine; psych recommend no opoids or benzos. patient is on tramadol. History Interval history: patient was seen and evaluated this morning, patient is still complaining of shortness of breath Hospitalist Physical - Physical exam Narrative exam: Not in cardiopulmonary distress. The patient appeared well nourished and normally developed. Vital signs as documented. Head exam is unremarkable. No scleral icterus . Neck is without jugular venous distension, thyromegaly, or carotid bruits. Lungs are clear to auscultation. Cardiac exam reveals regular rate and Rhythm. Abdominal exam reveals normal bowel sounds. Extremities are nonedematous and both femoral and pedal pulses are normal. 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 No focal weakness. - Constitutional Vitals: Temp Pulse Resp BP Pulse Ox 97.6 F 93 H 20 137/54 97 06/04/18 02:24 06/04/18 02:56 06/04/18 02:56 06/04/18 02:24 06/04/18 02:00 General appearance: Present: no acute distress, well-nourished Results - Labs CBC & Chem 7: 06/03/18 05:27 06/03/18 05:27 Labs: Laboratory Last Values WBC 13.1 K/mm3 (4.5-11.0) H 06/03/18 05:27 RBC 3.71 M/mm3 (3.65-5.03) 06/03/18 05:27 Hgb 11.0 gm/dl (10.1-14.3) 06/03/18 05:27 Hct 34.2 % (30.3-42.9) 06/03/18 05:27 MCV 92 fl (79-97) 06/03/18 05:27 MCH 30 pg (28-32) 06/03/18 05:27 MCHC 32 % (30-34) 06/03/18 05:27 RDW 17.6 % (13.2-15.2) H 06/03/18 05:27 Plt Count 166 K/mm3 (140-440) 06/03/18 05:27 Lymph % (Auto) 16.7 % (13.4-35.0) 05/30/18 06:26 [place] % (Auto) 7.8 % (0.0-7.3) H 05/30/18 06:26 Eos % (Auto) 0.9 % (0.0-4.3) 05/30/18 06:26 Baso % (Auto) 0.3 % (0.0-1.8) 05/30/18 06:26 Lymph # 1.8 K/mm3 (1.2-5.4) 05/30/18 06:26 Barnes # 0.8 K/mm3 (0.0-0.8) 05/30/18 06:26 Eos # 0.1 K/mm3 (0.0-0.4) 05/30/18 06:26 Baso # 0.0 K/mm3 (0.0-0.1) 05/30/18 06:26 Add Manual Diff Complete 06/03/18 05:27 Total Counted 100 06/03/18 05:27 Seg Neutrophils % Clerical Aide 06/03/18 05:27 Seg Neuts % (Manual) 96.0 % (40.0-70.0) H 06/03/18 05:27 Band Neutrophils % 0 % 06/03/18 05:27 Lymphocytes % (Manual) 3.0 % (13.4-35.0) L 06/03/18 05:27 Reactive Lymphs % (Man) 0 % 06/03/18 05:27 Monocytes % (Manual) 1.0 % (0.0-7.3) 06/03/18 05:27 Eosinophils % (Manual) 0 % (0.0-4.3) 06/03/18 05:27 Basophils % (Manual) 0 % (0.0-1.8) 06/03/18 05:27 Metamyelocytes % 0 % 06/03/18 05:27 Myelocytes % 0 % 06/03/18 05:27 Promyelocytes % 0 % 06/03/18 05:27 Blast Cells % 0 % 06/03/18 05:27 Nucleated RBC % Not Reportable 06/03/18 05:27 Seg Neutrophils # 7.8 K/mm3 (1.8-7.7) H 05/30/18 06:26 Seg Neutrophils # Man 12.6 K/mm3 (1.8-7.7) H 06/03/18 05:27 Band Neutrophils # 0.0 K/mm3 06/03/18 05:27 Lymphocytes # (Manual) 0.4 K/mm3 (1.2-5.4) L 06/03/18 05:27 Abs React Lymphs (Man) 0.0 K/mm3 06/03/18 05:27 Monocytes # (Manual) 0.1 K/mm3 (0.0-0.8) 06/03/18 05:27 Eosinophils # (Manual) 0.0 K/mm3 (0.0-0.4) 06/03/18 05:27 Basophils # (Manual) 0.0 K/mm3 (0.0-0.1) 06/03/18 05:27 Metamyelocytes # 0.0 K/mm3 06/03/18 05:27 Myelocytes # 0.0 K/mm3 06/03/18 05:27 Promyelocytes # 0.0 K/mm3 06/03/18 05:27 Blast Cells # 0.0 K/mm3 06/03/18 05:27 WBC Morphology Not Reportable 06/03/18 05:27 Hypersegmented Neuts Not Reportable 06/03/18 05:27 Hyposegmented Neuts Not Reportable 06/03/18 05:27 Hypogranular Neuts Not Reportable 06/03/18 05:27 Smudge Cells Not Reportable 06/03/18 05:27 Toxic Granulation Not Reportable 06/03/18 05:27 Toxic Vacuolation Not Reportable 06/03/18 05:27 Dohle Bodies Not Reportable 06/03/18 05:27 Pelger-Huet Anomaly Not Reportable 06/03/18 05:27 Ashlee Rods Not Reportable 06/03/18 05:27 Platelet Estimate Consistent w auto 06/03/18 05:27 Clumped Platelets Not Reportable 06/03/18 05:27 Plt Clumps, EDTA Not Reportable 06/03/18 05:27 Large Platelets Not Reportable 06/03/18 05:27 Giant Platelets Not Reportable 06/03/18 05:27 Platelet Satelliting Not Reportable 06/03/18 05:27 Plt Morphology Comment Not Reportable 06/03/18 05:27 RBC Morphology Not Reportable 06/03/18 05:27 Dimorphic RBCs Not Reportable 06/03/18 05:27 Polychromasia Not Reportable 06/03/18 05:27 Hypochromasia Not Reportable 06/03/18 05:27 Poikilocytosis Few 06/03/18 05:27 Anisocytosis Few 06/03/18 05:27 Microcytosis Not Reportable 06/03/18 05:27 Macrocytosis Not Reportable 06/03/18 05:27 Spherocytes Not Reportable 06/03/18 05:27 Pappenheimer Bodies Not Reportable 06/03/18 05:27 Sickle Cells Not Reportable 06/03/18 05:27 Target Cells Not Reportable 06/03/18 05:27 Tear Drop Cells Not Reportable 06/03/18 05:27 Ovalocytes Few 06/03/18 05:27 Helmet Cells Not Reportable 06/03/18 05:27 P[place] Bodies Not Reportable 06/03/18 05:27 [place] Rings Not Reportable 06/03/18 05:27 Taylor Cells Not Reportable 06/03/18 05:27 Bite Cells Not Reportable 06/03/18 05:27 Crenated Cell Not Reportable 06/03/18 05:27 Elliptocytes Not Reportable 06/03/18 05:27 Acanthocytes (Spur) Not Reportable 06/03/18 05:27 Rouleaux Not Reportable 06/03/18 05:27 Hemoglobin C Crystals Not Reportable 06/03/18 05:27 Schistocytes Not Reportable 06/03/18 05:27 Malaria parasites Not Reportable 06/03/18 05:27 Darin Bodies Not Reportable 06/03/18 05:27 Hem Pathologist Commnt No 06/03/18 05:27 PT 12.5 Sec. (12.2-14.9) 05/30/18 06:46 INR 0.88 (0.87-1.13) 05/30/18 06:46 APTT 25.2 Sec. (24.2-36.6) 05/30/18 06:46 D-Dimer 212.51 ng/mlDDU (0-234) 05/30/18 06:46 POC ABG pH 7.397 (7.35-7.45) 05/30/18 09:01 POC ABG pCO2 51.9 (35-45) H 05/30/18 09:01 POC ABG pO2 110 (80-105) H 05/30/18 09:01 POC ABG HCO3 32.0 (22-26 mml/L) 05/30/18 09:01 POC ABG Total CO2 34 (23-27mmol/L) 05/30/18 09:01 POC ABG O2 Sat 98 05/30/18 09:01 POC ABG Base Excess 7 ((-2) - (+3)mmol/L) 05/30/18 09:01 FiO2 28 % 05/30/18 09:01 Sodium 139 mmol/L (137-145) 06/03/18 05:27 Potassium 4.3 mmol/L (3.6-5.0) 06/03/18 05:27 Chloride 98.2 mmol/L (98-107) 06/03/18 05:27 Carbon Dioxide 26 mmol/L (22-30) 06/03/18 05:27 Anion Gap 19 mmol/L 06/03/18 05:27 BUN 38 mg/dL (7-17) H 06/03/18 05:27 Creatinine 1.1 mg/dL (0.7-1.2) 06/03/18 05:27 Estimated GFR 60 ml/min 06/03/18 05:27 BUN/Creatinine Ratio 35 % 06/03/18 05:27 Glucose 152 mg/dL (65-100) H 06/03/18 05:27 POC Glucose 124 (70-105) H 06/01/18 23:25 Lactic Acid 0.90 mmol/L (0.7-2.0) 05/30/18 08:34 Calcium 9.0 mg/dL (8.4-10.2) 06/03/18 05:27 Magnesium 2.40 mg/dL (1.7-2.3) H 05/30/18 06:26 Total Bilirubin 0.30 mg/dL (0.1-1.2) 05/30/18 06:26 Direct Bilirubin < 0.2 mg/dL (0-0.2) 05/30/18 06:26 Indirect Bilirubin 0.1 mg/dL 05/30/18 06:26 AST 13 units/L (5-40) 05/30/18 06:26 ALT 9 units/L (7-56) 05/30/18 06:26 Alkaline Phosphatase 60 units/L (35-129) 05/30/18 06:26 Total Creatine Kinase 104 units/L (30-135) 05/30/18 06:26 CK-MB (CK-2) 2.3 ng/mL (0.0-4.0) 05/30/18 06:26 CK-MB (CK-2) Rel Index 2.2 (0-4) 05/30/18 06:26 Troponin T < 0.010 ng/mL (0.00-0.029) 06/01/18 11:43 NT-Pro-B Natriuret Pep 315.0 pg/mL (0-900) 05/30/18 06:46 Total Protein 5.9 g/dL (6.3-8.2) L 05/30/18 06:26 Albumin 4.2 g/dL (3.9-5) 05/30/18 06:26 Albumin/Globulin Ratio 2.5 % 05/30/18 06:26 TSH 1.470 mlU/mL (0.270-4.200) 05/30/18 06:26 Urine Color Yellow (Yellow) 05/30/18 07:57 Urine Turbidity Clear (Clear) 05/30/18 07:57 Urine pH 5.0 (5.0-7.0) 05/30/18 07:57 Ur Specific [place] 1.032 (1.003-1.030) H 05/30/18 07:57 Urine Protein 30 mg/dl mg/dL (Negative) 05/30/18 07:57 Urine Glucose (UA) Neg mg/dL (Negative) 05/30/18 07:57 Urine Ketones Neg mg/dL (Negative) 05/30/18 07:57 Urine Blood Neg (Negative) 05/30/18 07:57 Urine Nitrite Neg (Negative) 05/30/18 07:57 Urine Bilirubin Neg (Negative) 05/30/18 07:57 Urine Urobilinogen 2.0 mg/dL (<2.0) 05/30/18 07:57 Ur Leukocyte Esterase Mod (Negative) 05/30/18 07:57 Urine WBC (Auto) 7.0 /HPF (0.0-6.0) H 05/30/18 07:57 Urine RBC (Auto) 2.0 /HPF (0.0-6.0) 05/30/18 07:57 U Epithel Cells (Auto) 1.0 /HPF (0-13.0) 05/30/18 07:57 Urine Bacteria (Auto) 1+ /HPF (Negative) 05/30/18 07:57 Hyaline Casts 29 /LPF 05/30/18 07:57 Urine Mucus Few /HPF 05/30/18 07:57 Urine Opiates Screen Presumptive negative 05/30/18 07:57 Urine Methadone Screen Presumptive negative 05/30/18 07:57 Ur Barbiturates Screen Presumptive negative 05/30/18 07:57 Ur Phencyclidine Scrn Presumptive negative 05/30/18 07:57 Ur Amphetamines Screen Presumptive negative 05/30/18 07:57 U Benzodiazepines Scrn Presumptive negative 05/30/18 07:57 Urine Cocaine Screen Presumptive negative 05/30/18 07:57 U Marijuana (THC) Screen Presumptive negative 05/30/18 07:57 Drugs of Abuse Note Disclamer 05/30/18 07:57 Plasma/Serum Alcohol < 0.01 % (0-0.07) 05/30/18 06:26 Active Medications - Current Medications Current Medications: Generic Name Dose Route Start Last Admin Trade Name Freq PRN Reason Stop Dose Admin Acetaminophen 650 mg 05/30/18 12:16 06/01/18 09:24 Tylenol PO 650 mg Q4H PRN Administration Pain MILD(1-3)/Fever >100.5/AMOR Albuterol 2.5 mg 05/30/18 12:16 Proventil IH Q4HRT PRN Shortness Of Breath Albuterol/Ipratropium 1 ampul 05/30/18 14:00 06/04/18 02:38 Duoneb *Not For Prn Use* IH 1 ampul Q6HRT ANGELES Administration Amlodipine Besylate 10 mg 05/31/18 15:00 06/03/18 09:25 Norvasc PO 10 mg QDAY ANGELES Administration Aspirin 81 mg 05/31/18 11:00 06/03/18 09:24 Halfprin Ec PO 81 mg QDAY ANGELES Administration Atorvastatin Calcium 20 mg 06/01/18 22:00 06/03/18 21:53 Lipitor PO 20 mg QHS ANGELES Administration Buspirone HCl 7.5 mg 06/01/18 15:00 06/03/18 21:51 Buspar PO 7.5 mg BID ANGELES Administration Duloxetine HCl 60 mg 06/01/18 10:00 06/03/18 09:24 Cymbalta PO 60 mg QDAY ANGELES Administration Enoxaparin Sodium 40 mg 05/30/18 22:00 06/03/18 21:53 Lovenox SUB-Q 40 mg QDAY@2200 ANGELES Administration Furosemide 40 mg 05/31/18 15:00 06/03/18 09:25 Lasix PO 40 mg QDAY ANGELES Administration Hydroxyzine HCl 25 mg 06/04/18 07:22 Atarax PO Q6H PRN Anxiety Losartan Potassium 50 mg 05/31/18 15:00 06/03/18 09:25 Cozaar PO 50 mg QDAY ANGELES Administration Methylprednisolone Sodium Succinate 100 mg 06/04/18 07:24 Solu-Medrol IV Q8H ANGELES Metoprolol Tartrate 50 mg 06/03/18 22:00 06/03/18 21:49 Lopressor PO 50 mg BID ANGELES Administration Ondansetron HCl 4 mg 05/30/18 12:16 06/02/18 09:09 Zofran IV 4 mg Q8H PRN Administration Nausea And Vomiting Sodium Chloride 10 ml 05/30/18 22:00 06/04/18 03:42 Sodium Chloride Flush Syringe 10 Ml IV 10 ml BID ANGELES Administration Sodium Chloride 10 ml 05/30/18 12:16 06/02/18 18:11 Sodium Chloride Flush Syringe 10 Ml IV 10 ml PRN PRN Administration LINE FLUSH Tramadol HCl 50 mg 06/04/18 07:23 Ultram PO Q6H PRN Pain, Moderate (4-6) Trazodone HCl 100 mg 05/31/18 22:00 06/03/18 21:50 Desyrel PO 100 mg HS ANGELES Administration
[2018-06-04] MEDS: ZOFRAN IV PRN (09:31)
[2018-06-04] MEDS: LOPRESSOR PO SCH (09:33)
[2018-06-04] MEDS: NORVASC PO SCH (09:35)
[2018-06-04] MEDS: LASIX PO SCH (09:35)
[2018-06-04] MEDS: ATARAX PO PRN ×2 (09:35→16:19)
[2018-06-04] MEDS: BUSPAR PO SCH ×2 (09:36→22:48)
[2018-06-04] MEDS: HALFPRIN EC PO SCH (09:36)
[2018-06-04] MEDS: CYMBALTA PO SCH (09:36)
[2018-06-04] MEDS: COZAAR PO SCH (09:36)
[2018-06-04] MEDS: ULTRAM PO PRN ×3 (09:36→22:42)
--- NOTE | 2018-06-04 10:52 | Progress Note ---
Assessment and Plan Currently stable cardiac status. Pulmonary consultation noted. The patient has been seen in conjunction with Dr. Gilliland who agrees with the assessment and plan of care. - Patient Problems (1) Atypical chest pain Current Visit: Yes Status: Resolved (2) CO2 retention Current Visit: Yes Status: Acute (3) COPD exacerbation Current Visit: Yes Status: Acute (4) Chronic narcotic dependence Current Visit: Yes Status: Acute (5) Benzodiazepine dependence Current Visit: No Status: Acute (6) Depression Current Visit: No Status: Acute (7) Narcotic dependence Current Visit: No Status: Acute (8) Opioid withdrawal delirium, acute, hyperactive Current Visit: No Status: Acute (9) Rheumatoid arthritis Current Visit: No Status: Acute (10) Tobacco abuse Current Visit: No Status: Acute (11) Anxiety Current Visit: No Status: Chronic (12) Chronic low back pain Current Visit: No Status: Chronic Qualifiers: Back pain laterality: midline Sciatica presence: without sciatica Qualified Code(s): M54.5 - Low back pain; G89.29 - Other chronic pain (13) HTN (hypertension) Current Visit: No Status: Chronic Qualifiers: Hypertension type: essential hypertension Qualified Code(s): I10 - Essential (primary) hypertension (14) Pulmonary hypertension, moderate to severe Current Visit: No Status: Chronic Subjective Date of service: 06/04/18 Principal diagnosis: cp Interval history: pt sitting up at bedside, states she is feeling very well. tele reviewed - pt in SR with HR 90s, no tachycardia noted overnight. Objective Last Vital Signs Temp 98.7 F 06/04/18 08:12 Pulse 79 06/04/18 09:10 Resp 18 06/04/18 09:10 BP 156/84 06/04/18 09:36 Pulse Ox 98 06/04/18 09:21 - Physical Examination General: No Apparent Distress HEENT: Positive: PERRL, Normocephaly, Mucus Membranes Moist Neck: Positive: neck supple Cardiac: Positive: Reg Rate and Rhythm, S1/S2 Lungs: Positive: Decreased Breath Sounds Neuro: Positive: Grossly Intact Abdomen: Negative: Tender Skin: Negative: Rash, Wound Musculoskeletal: No Pain Extremities: Absent: edema - Imaging and Cardiology EKG: report reviewed, image reviewed Echo: report reviewed (01/2018: EF 50-55%, mild to mod LVH, mild TR, RVSP 48mmHg, trivial pericardial effusion.)
--- NOTE | 2018-06-04 17:04 | Progress Note ---
Assessment and Plan Atypical chest pain. Acute COPD exacerbation Leukocytosis Pulmonary hypertension Chronic systolic heart failure, compensated. EF 45% Opiate and benzodiazepine dependence Major depression and anxiety Paroxysmal atrial tachycardia Hypertension Rheumatoid arthritis Ngative CT for PE and Lexiscan on recent hospitalization. Cardiology said no further cardiac workup. Steroid taper, bronchodilaotrs Complete antibitoics Gentle diuresis while monitoring renal function and electrolytes Replace electrolytes as indicated Need to keep her euvoleic to slightly negative in niew of pulmonary HTN Pulmonary hypertension; pulmonary following. No benzodiazepines or opiods per Pscych recommendationw Continue BuSpar Cymbalta and hydroxyzine. Continue blood pressure control Continue glycemic control, target blood glucose 140-180 mg/dL VTE prophylaxis Airway clearance techniques Pulmonary rehab on discharge PT/OT, increase activity as tolerated Subjective Date of service: 06/04/18 Principal diagnosis: cp Interval history: Follow up for acute on chronic respiratory failure, on home oxygen: AE-COPD: Pulmonary HTN Seen and examined. Vitasl, labs, medications, chart and imaging reviewed. She continues to complain of shortness of breath, asking for anxieolytics. Denies any fevers or chills, no nausea or vomiting. No diarrhea, poor sleep Objective Vital Signs - 12hr 06/04/18 06/04/18 06/04/18 08:00 08:12 08:58 Temperature 98.7 F Pulse Rate 81 Pulse Rate [ 78 Posterior Bilateral Throughout] Respiratory 18 20 Rate Respiratory 18 Rate [Posterior Bilateral Throughout] Blood Pressure 156/84 O2 Sat by Pulse 96 96 Oximetry 06/04/18 06/04/18 06/04/18 09:10 09:21 09:33 Temperature Pulse Rate Pulse Rate [ 79 Posterior Bilateral Throughout] Respiratory Rate Respiratory 18 Rate [Posterior Bilateral Throughout] Blood Pressure 156/84 O2 Sat by Pulse 98 Oximetry 06/04/18 06/04/18 06/04/18 09:35 09:36 10:00 Temperature Pulse Rate 98 H Pulse Rate [ Posterior Bilateral Throughout] Respiratory Rate Respiratory Rate [Posterior Bilateral Throughout] Blood Pressure 156/84 156/84 O2 Sat by Pulse Oximetry 06/04/18 06/04/18 06/04/18 14:03 15:31 15:41 Temperature 97.8 F Pulse Rate 87 Pulse Rate [ 87 89 Posterior Bilateral Throughout] Respiratory 20 Rate Respiratory 18 18 Rate [Posterior Bilateral Throughout] Blood Pressure 134/64 O2 Sat by Pulse 96 Oximetry Constitutional: alert, appears uncomfortable ENT: oropharynx moist Neck: supple, no JVD Ascultation: Bilateral: diminished breath sounds, other (Prolonged expiratory phase.) Cardiovascular: regular rate and rhythm Gastrointestinal: normoactive bowel sounds, soft, non-tender Integumentary: normal Extremities: no cyanosis, no edema Neurologic: normal mental status, non-focal exam, pupils equal and round, CN II- XII normal Psychiatric: anxious CBC and BMP: 06/08/18 04:38 06/08/18 04:38 ABG, PT/INR, D-dimer: ABG POC ABG pH 7.397 (7.35-7.45) 05/30/18 09:01 POC ABG pCO2 51.9 (35-45) H 05/30/18 09:01 POC ABG pO2 110 (80-105) H 05/30/18 09:01 POC ABG HCO3 32.0 (22-26 mml/L) 05/30/18 09:01 POC ABG Total CO2 34 (23-27mmol/L) 05/30/18 09:01 POC ABG O2 Sat 98 05/30/18 09:01 PT/INR, D-dimer PT 12.5 Sec. (12.2-14.9) 05/30/18 06:46 INR 0.88 (0.87-1.13) 05/30/18 06:46 D-Dimer 212.51 ng/mlDDU (0-234) 05/30/18 06:46 Abnormal lab findings: Abnormal Labs 05/30/18 05/30/18 05/30/18 06:26 06:26 06:26 WBC RDW 17.0 H [place] % (Auto) 7.8 H Seg Neutrophils % 74.3 H Seg Neuts % (Manual) Lymphocytes % (Manual) Seg Neutrophils # 7.8 H Seg Neutrophils # Man Lymphocytes # (Manual) POC ABG pCO2 POC ABG pO2 Chloride BUN 24 H Creatinine 1.3 H Glucose 102 H POC Glucose Magnesium 2.40 H Total Protein 5.9 L Ur Specific [place] Urine WBC (Auto) 05/30/18 05/30/18 05/31/18 07:57 09:01 05:20 WBC RDW 17.3 H [place] % (Auto) Seg Neutrophils % Seg Neuts % (Manual) 95.0 H Lymphocytes % (Manual) 4.0 L Seg Neutrophils # Seg Neutrophils # Man 9.6 H Lymphocytes # (Manual) 0.4 L POC ABG pCO2 51.9 H POC ABG pO2 110 H Chloride BUN Creatinine Glucose POC Glucose Magnesium Total Protein Ur Specific [place] 1.032 H Urine WBC (Auto) 7.0 H 05/31/18 06/01/18 06/02/18 05:20 23:25 04:52 WBC 18.4 H RDW 17.2 H [place] % (Auto) Seg Neutrophils % Seg Neuts % (Manual) 97.0 H Lymphocytes % (Manual) 2.0 L Seg Neutrophils # Seg Neutrophils # Man 17.8 H Lymphocytes # (Manual) 0.4 L POC ABG pCO2 POC ABG pO2 Chloride BUN 37 H Creatinine Glucose 153 H POC Glucose 124 H Magnesium Total Protein Ur Specific [place] Urine WBC (Auto) 06/02/18 06/03/18 06/03/18 04:52 05:27 05:27 WBC 13.1 H RDW 17.6 H [place] % (Auto) Seg Neutrophils % Seg Neuts % (Manual) 96.0 H Lymphocytes % (Manual) 3.0 L Seg Neutrophils # Seg Neutrophils # Man 12.6 H Lymphocytes # (Manual) 0.4 L POC ABG pCO2 POC ABG pO2 Chloride 97.0 L BUN 35 H 38 H Creatinine Glucose 134 H 152 H POC Glucose Magnesium Total Protein Ur Specific [place] Urine WBC (Auto)
[2018-06-04] MEDS: LOVENOX SUB-Q SCH (22:44)
[2018-06-04] MEDS: ROBITUSSIN PO SCH (22:44)
[2018-06-04] MEDS: DESYREL PO SCH ×2 (22:46→22:47)
[2018-06-05] MEDS: DUONEB *Not for PRN Use IH SCH ×4 (02:00→19:33)
--- NOTE | 2018-06-05 09:35 | Progress Note ---
Assessment and Plan Assessment and plan: Atypical chest pain. Pt with negative CT for PE and Lexiscan on recent hospitalization. Cardiology said no further cardiac workup. Acute COPD exacerbation. Patient is on IV steroids, bronchodilators/nebulizers. Pulmonary is following. Leukocytosis likely due to high-dose IV steroid, trending down. Pulmonary hypertension; pulmonary following. Chronic systolic heart failure, compensated. EF 45%. continue lasix. Opiate and benzodiazepine dependence; was evaluated by psychiatric and recommen ded no benzos and opoids concurrently. Continue her oxycodone and discontinue benzo. Major depression and anxiety; BuSpar Cymbalta and hydroxyzine. Paroxysmal atrial tachycardia; controlled, cardiology is following Hypertension; continue antihypertensives Rheumatoid arthritis. Continue current medications. will follow with consumer educator as an O/P. DVT prophylaxis; Lovenox Disposition; Per pulmonary. History Interval history: patient was seen and evaluated this morning, patient's shortness of breath is getting better, she is complaining severe pain. Hospitalist Physical - Physical exam Narrative exam: Not in cardiopulmonary distress. The patient appeared well nourished and normally developed. Vital signs as documented. Head exam is unremarkable. No scleral icterus . Neck is without jugular venous distension, thyromegaly, or carotid bruits. Lungs are clear to auscultation. Cardiac exam reveals regular rate and Rhythm. Abdominal exam reveals normal bowel sounds. Extremities are nonedematous and both femoral and pedal pulses are normal. 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 No focal weakness. - Constitutional Vitals: Temp Pulse Resp BP Pulse Ox 99.0 F 96 H 22 148/65 97 06/05/18 08:00 06/05/18 08:00 06/05/18 08:00 06/05/18 08:00 06/05/18 08:00 General appearance: Present: no acute distress, well-nourished Results - Labs CBC & Chem 7: 06/03/18 05:27 06/03/18 05:27 Labs: Laboratory Last Values WBC 13.1 K/mm3 (4.5-11.0) H 06/03/18 05:27 RBC 3.71 M/mm3 (3.65-5.03) 06/03/18 05:27 Hgb 11.0 gm/dl (10.1-14.3) 06/03/18 05:27 Hct 34.2 % (30.3-42.9) 06/03/18 05:27 MCV 92 fl (79-97) 06/03/18 05:27 MCH 30 pg (28-32) 06/03/18 05:27 MCHC 32 % (30-34) 06/03/18 05:27 RDW 17.6 % (13.2-15.2) H 06/03/18 05:27 Plt Count 166 K/mm3 (140-440) 06/03/18 05:27 Lymph % (Auto) 16.7 % (13.4-35.0) 05/30/18 06:26 [place] % (Auto) 7.8 % (0.0-7.3) H 05/30/18 06:26 Eos % (Auto) 0.9 % (0.0-4.3) 05/30/18 06:26 Baso % (Auto) 0.3 % (0.0-1.8) 05/30/18 06:26 Lymph # 1.8 K/mm3 (1.2-5.4) 05/30/18 06:26 [place] # 0.8 K/mm3 (0.0-0.8) 05/30/18 06:26 Eos # 0.1 K/mm3 (0.0-0.4) 05/30/18 06:26 Baso # 0.0 K/mm3 (0.0-0.1) 05/30/18 06:26 Add Manual Diff Complete 06/03/18 05:27 Total Counted 100 06/03/18 05:27 Seg Neutrophils % 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 Generating Powerplant Mechanic 06/03/18 05:27 Seg Neuts % (Manual) 96.0 % (40.0-70.0) H 06/03/18 05:27 Band Neutrophils % 0 % 06/03/18 05:27 Lymphocytes % (Manual) 3.0 % (13.4-35.0) L 06/03/18 05:27 Reactive Lymphs % (Man) 0 % 06/03/18 05:27 Monocytes % (Manual) 1.0 % (0.0-7.3) 06/03/18 05:27 Eosinophils % (Manual) 0 % (0.0-4.3) 06/03/18 05:27 Basophils % (Manual) 0 % (0.0-1.8) 06/03/18 05:27 Metamyelocytes % 0 % 06/03/18 05:27 Myelocytes % 0 % 06/03/18 05:27 Promyelocytes % 0 % 06/03/18 05:27 Blast Cells % 0 % 06/03/18 05:27 Nucleated RBC % Not Reportable 06/03/18 05:27 Seg Neutrophils # 7.8 K/mm3 (1.8-7.7) H 05/30/18 06:26 Seg Neutrophils # Man 12.6 K/mm3 (1.8-7.7) H 06/03/18 05:27 Band Neutrophils # 0.0 K/mm3 06/03/18 05:27 Lymphocytes # (Manual) 0.4 K/mm3 (1.2-5.4) L 06/03/18 05:27 Abs React Lymphs (Man) 0.0 K/mm3 06/03/18 05:27 Monocytes # (Manual) 0.1 K/mm3 (0.0-0.8) 06/03/18 05:27 Eosinophils # (Manual) 0.0 K/mm3 (0.0-0.4) 06/03/18 05:27 Basophils # (Manual) 0.0 K/mm3 (0.0-0.1) 06/03/18 05:27 Metamyelocytes # 0.0 K/mm3 06/03/18 05:27 Myelocytes # 0.0 K/mm3 06/03/18 05:27 Promyelocytes # 0.0 K/mm3 06/03/18 05:27 Blast Cells # 0.0 K/mm3 06/03/18 05:27 WBC Morphology Not Reportable 06/03/18 05:27 Hypersegmented Neuts Not Reportable 06/03/18 05:27 Hyposegmented Neuts Not Reportable 06/03/18 05:27 Hypogranular Neuts Not Reportable 06/03/18 05:27 Smudge Cells Not Reportable 06/03/18 05:27 Toxic Granulation Not Reportable 06/03/18 05:27 Toxic Vacuolation Not Reportable 06/03/18 05:27 Dohle Bodies Not Reportable 06/03/18 05:27 Pelger-Huet Anomaly Not Reportable 06/03/18 05:27 Ashlee Rods Not Reportable 06/03/18 05:27 Platelet Estimate Consistent w auto 06/03/18 05:27 Clumped Platelets Not Reportable 06/03/18 05:27 Plt Clumps, EDTA Not Reportable 06/03/18 05:27 Large Platelets Not Reportable 06/03/18 05:27 Giant Platelets Not Reportable 06/03/18 05:27 Platelet Satelliting Not Reportable 06/03/18 05:27 Plt Morphology Comment Not Reportable 06/03/18 05:27 RBC Morphology Not Reportable 06/03/18 05:27 Dimorphic RBCs Not Reportable 06/03/18 05:27 Polychromasia Not Reportable 06/03/18 05:27 Hypochromasia Not Reportable 06/03/18 05:27 Poikilocytosis Few 06/03/18 05:27 Anisocytosis Few 06/03/18 05:27 Microcytosis Not Reportable 06/03/18 05:27 Macrocytosis Not Reportable 06/03/18 05:27 Spherocytes Not Reportable 06/03/18 05:27 Pappenheimer Bodies Not Reportable 06/03/18 05:27 Sickle Cells Not Reportable 06/03/18 05:27 Target Cells Not Reportable 06/03/18 05:27 Tear Drop Cells Not Reportable 06/03/18 05:27 Ovalocytes Few 06/03/18 05:27 Helmet Cells Not Reportable 06/03/18 05:27 Panda-Greenleaf Bodies Not Reportable 06/03/18 05:27 Burdick Rings Not Reportable 06/03/18 05:27 Taylor Cells Not Reportable 06/03/18 05:27 Bite Cells Not Reportable 06/03/18 05:27 Crenated Cell Not Reportable 06/03/18 05:27 Elliptocytes Not Reportable 06/03/18 05:27 Acanthocytes (Spur) Not Reportable 06/03/18 05:27 Rouleaux Not Reportable 06/03/18 05:27 Hemoglobin C Crystals Not Reportable 06/03/18 05:27 Schistocytes Not Reportable 06/03/18 05:27 Malaria parasites Not Reportable 06/03/18 05:27 Darin Bodies Not Reportable 06/03/18 05:27 Hem Pathologist Commnt No 06/03/18 05:27 PT 12.5 Sec. (12.2-14.9) 05/30/18 06:46 INR 0.88 (0.87-1.13) 05/30/18 06:46 APTT 25.2 Sec. (24.2-36.6) 05/30/18 06:46 D-Dimer 212.51 ng/mlDDU (0-234) 05/30/18 06:46 POC ABG pH 7.397 (7.35-7.45) 05/30/18 09:01 POC ABG pCO2 51.9 (35-45) H 05/30/18 09:01 POC ABG pO2 110 (80-105) H 05/30/18 09:01 POC ABG HCO3 32.0 (22-26 mml/L) 05/30/18 09:01 POC ABG Total CO2 34 (23-27mmol/L) 05/30/18 09:01 POC ABG O2 Sat 98 05/30/18 09:01 POC ABG Base Excess 7 ((-2) - (+3)mmol/L) 05/30/18 09:01 FiO2 28 % 05/30/18 09:01 Sodium 139 mmol/L (137-145) 06/03/18 05:27 Potassium 4.3 mmol/L (3.6-5.0) 06/03/18 05:27 Chloride 98.2 mmol/L (98-107) 06/03/18 05:27 Carbon Dioxide 26 mmol/L (22-30) 06/03/18 05:27 Anion Gap 19 mmol/L 06/03/18 05:27 BUN 38 mg/dL (7-17) H 06/03/18 05:27 Creatinine 1.1 mg/dL (0.7-1.2) 06/03/18 05:27 Estimated GFR 60 ml/min 06/03/18 05:27 BUN/Creatinine Ratio 35 % 06/03/18 05:27 Glucose 152 mg/dL (65-100) H 06/03/18 05:27 POC Glucose 124 (70-105) H 06/01/18 23:25 Lactic Acid 0.90 mmol/L (0.7-2.0) 05/30/18 08:34 Calcium 9.0 mg/dL (8.4-10.2) 06/03/18 05:27 Magnesium 2.40 mg/dL (1.7-2.3) H 05/30/18 06:26 Total Bilirubin 0.30 mg/dL (0.1-1.2) 05/30/18 06:26 Direct Bilirubin < 0.2 mg/dL (0-0.2) 05/30/18 06:26 Indirect Bilirubin 0.1 mg/dL 05/30/18 06:26 AST 13 units/L (5-40) 05/30/18 06:26 ALT 9 units/L (7-56) 05/30/18 06:26 Alkaline Phosphatase 60 units/L (35-129) 05/30/18 06:26 Total Creatine Kinase 104 units/L (30-135) 05/30/18 06:26 CK-MB (CK-2) 2.3 ng/mL (0.0-4.0) 05/30/18 06:26 CK-MB (CK-2) Rel Index 2.2 (0-4) 05/30/18 06:26 Troponin T < 0.010 ng/mL (0.00-0.029) 06/01/18 11:43 NT-Pro-B Natriuret Pep 315.0 pg/mL (0-900) 05/30/18 06:46 Total Protein 5.9 g/dL (6.3-8.2) L 05/30/18 06:26 Albumin 4.2 g/dL (3.9-5) 05/30/18 06:26 Albumin/Globulin Ratio 2.5 % 05/30/18 06:26 TSH 1.470 mlU/mL (0.270-4.200) 05/30/18 06:26 Urine Color Yellow (Yellow) 05/30/18 07:57 Urine Turbidity Clear (Clear) 05/30/18 07:57 Urine pH 5.0 (5.0-7.0) 05/30/18 07:57 Ur Specific [place] 1.032 (1.003-1.030) H 05/30/18 07:57 Urine Protein 30 mg/dl mg/dL (Negative) 05/30/18 07:57 Urine Glucose (UA) Neg mg/dL (Negative) 05/30/18 07:57 Urine Ketones Neg mg/dL (Negative) 05/30/18 07:57 Urine Blood Neg (Negative) 05/30/18 07:57 Urine Nitrite Neg (Negative) 05/30/18 07:57 Urine Bilirubin Neg (Negative) 05/30/18 07:57 Urine Urobilinogen 2.0 mg/dL (<2.0) 05/30/18 07:57 Ur Leukocyte Esterase Mod (Negative) 05/30/18 07:57 Urine WBC (Auto) 7.0 /HPF (0.0-6.0) H 05/30/18 07:57 Urine RBC (Auto) 2.0 /HPF (0.0-6.0) 05/30/18 07:57 U Epithel Cells (Auto) 1.0 /HPF (0-13.0) 05/30/18 07:57 Urine Bacteria (Auto) 1+ /HPF (Negative) 05/30/18 07:57 Hyaline Casts 29 /LPF 05/30/18 07:57 Urine Mucus Few /HPF 05/30/18 07:57 Urine Opiates Screen Presumptive negative 05/30/18 07:57 Urine Methadone Screen Presumptive negative 05/30/18 07:57 Ur Barbiturates Screen Presumptive negative 05/30/18 07:57 Ur Phencyclidine Scrn Presumptive negative 05/30/18 07:57 Ur Amphetamines Screen Presumptive negative 05/30/18 07:57 U Benzodiazepines Scrn Presumptive negative 05/30/18 07:57 Urine Cocaine Screen Presumptive negative 05/30/18 07:57 U Marijuana (THC) Screen Presumptive negative 05/30/18 07:57 Drugs of Abuse Note Disclamer 05/30/18 07:57 Plasma/Serum Alcohol < 0.01 % (0-0.07) 05/30/18 06:26 Active Medications - Current Medications Current Medications: Generic Name Dose Route Start Last Admin Trade Name Freq PRN Reason Stop Dose Admin Acetaminophen 650 mg 05/30/18 12:16 06/01/18 09:24 Tylenol PO 650 mg Q4H PRN Administration Pain MILD(1-3)/Fever >100.5/AMOR Albuterol 2.5 mg 05/30/18 12:16 Proventil IH Q4HRT PRN Shortness Of Breath Albuterol/Ipratropium 1 ampul 05/30/18 14:00 06/05/18 08:41 Duoneb *Not For Prn Use* IH 1 ampul Q6HRT ANGELES Administration Amlodipine Besylate 10 mg 05/31/18 15:00 06/04/18 09:35 Norvasc PO 10 mg QDAY ANGELES Administration Aspirin 81 mg 05/31/18 11:00 06/04/18 09:36 Halfprin Ec PO 81 mg QDAY ANGELES Administration Atorvastatin Calcium 20 mg 06/01/18 22:00 06/04/18 22:45 Lipitor PO 20 mg QHS ANGELES Administration Buspirone HCl 7.5 mg 06/01/18 15:00 06/04/18 22:48 Buspar PO 7.5 mg BID ANGELES Administration Duloxetine HCl 60 mg 06/01/18 10:00 06/04/18 09:36 Cymbalta PO 60 mg QDAY ANGELES Administration Enoxaparin Sodium 40 mg 05/30/18 22:00 06/04/18 22:44 Lovenox SUB-Q 40 mg QDAY@2200 ANGELES Administration Furosemide 40 mg 05/31/18 15:00 06/04/18 09:35 Lasix PO 40 mg QDAY ANGELES Administration Guaifenesin 200 mg 06/04/18 20:00 06/04/18 22:44 Robitussin PO 200 mg Q4HR ANGELES Administration Hydroxyzine HCl 25 mg 06/04/18 07:22 06/04/18 16:19 Atarax PO 25 mg Q6H PRN Administration Anxiety Losartan Potassium 50 mg 05/31/18 15:00 06/04/18 09:36 Cozaar PO 50 mg QDAY ANGELES Administration Methylprednisolone Sodium Succinate 60 mg 06/05/18 09:30 Solu-Medrol IV Q8H ANGELES Metoprolol Tartrate 50 mg 06/03/18 22:00 06/04/18 09:33 Lopressor PO 50 mg BID ANGELES Administration Ondansetron HCl 4 mg 05/30/18 12:16 06/04/18 09:31 Zofran IV 4 mg Q8H PRN Administration Nausea And Vomiting Oxycodone HCl 15 mg 06/05/18 09:29 Roxicodone PO Q6H PRN Pain, Moderate (4-6) Sodium Chloride 10 ml 05/30/18 22:00 06/04/18 11:49 Sodium Chloride Flush Syringe 10 Ml IV 10 ml BID ANGELES Administration Sodium Chloride 10 ml 05/30/18 12:16 06/02/18 18:11 Sodium Chloride Flush Syringe 10 Ml IV 10 ml PRN PRN Administration LINE FLUSH Tramadol HCl 50 mg 06/04/18 07:23 06/04/18 22:42 Ultram PO 50 mg Q6H PRN Administration Pain, Moderate (4-6) Trazodone HCl 100 mg 05/31/18 22:00 06/04/18 22:47 Desyrel PO 100 mg HS ANGELES Administration
[2018-06-05] MEDS: BUSPAR PO SCH ×2 (10:20→21:23)
[2018-06-05] MEDS: SOLU-Medrol IV SCH ×2 (10:20→19:00)
[2018-06-05] MEDS: LASIX PO SCH (10:20)
[2018-06-05] MEDS: NORVASC PO SCH (10:20)
[2018-06-05] MEDS: HALFPRIN EC PO SCH (10:21)
[2018-06-05] MEDS: CYMBALTA PO SCH (10:21)
[2018-06-05] MEDS: ROBITUSSIN PO SCH ×4 (10:21→21:25)
[2018-06-05] MEDS: COZAAR PO SCH (10:21)
[2018-06-05] MEDS: ROXICODONE PO PRN ×3 (10:22→21:37)
[2018-06-05] MEDS: LOPRESSOR PO SCH ×3 (10:22→20:16)
[2018-06-05] MEDS: SODIUM CHLORIDE FLUSH SYRINGE 10 ML IV SCH ×3 (10:23→22:30)
--- NOTE | 2018-06-05 10:37 | Progress Note ---
Assessment and Plan Currently stable cardiac status. Pulmonary following. Optimize HR - increase lopressor. Will follow peripherally over the weekend. The patient has been seen in conjunction with Dr. Gilliland who agrees with the assessment and plan of care. - Patient Problems (1) Atypical chest pain Current Visit: Yes Status: Resolved (2) CO2 retention Current Visit: Yes Status: Acute (3) COPD exacerbation Current Visit: Yes Status: Acute (4) Chronic narcotic dependence Current Visit: Yes Status: Acute (5) Benzodiazepine dependence Current Visit: No Status: Acute (6) Depression Current Visit: No Status: Acute (7) Narcotic dependence Current Visit: No Status: Acute (8) Opioid withdrawal delirium, acute, hyperactive Current Visit: No Status: Acute (9) Rheumatoid arthritis Current Visit: No Status: Acute (10) Tobacco abuse Current Visit: No Status: Acute (11) Anxiety Current Visit: No Status: Chronic (12) Chronic low back pain Current Visit: No Status: Chronic Qualifiers: Back pain laterality: midline Sciatica presence: without sciatica Qualified Code(s): M54.5 - Low back pain; G89.29 - Other chronic pain (13) HTN (hypertension) Current Visit: No Status: Chronic Qualifiers: Hypertension type: essential hypertension Qualified Code(s): I10 - Essential (primary) hypertension (14) Pulmonary hypertension, moderate to severe Current Visit: No Status: Chronic Subjective Date of service: 06/05/18 Principal diagnosis: cp Interval history: pt sitting up at bedside, states she is feeling very well, states she had a "fantastic" day yesterday. she has some SOB and cough this morning. tele reviewed - pt in SR with HR 90s - 100s, no tachycardia noted overnight, one bout of sinus tach noted this AM while moving around the room. Objective Last Vital Signs Temp 99.0 F 06/05/18 08:00 Pulse 96 H 06/05/18 08:00 Resp 22 06/05/18 08:00 BP 148/65 06/05/18 08:00 Pulse Ox 97 06/05/18 08:00 - Physical Examination General: No Apparent Distress HEENT: Positive: PERRL, Normocephaly, Mucus Membranes Moist Neck: Positive: neck supple Cardiac: Positive: Reg Rate and Rhythm, S1/S2 Lungs: Positive: Decreased Breath Sounds, Wheezes Neuro: Positive: Grossly Intact Abdomen: Negative: Tender Skin: Negative: Rash, Wound Musculoskeletal: No Pain Extremities: Absent: edema - Imaging and Cardiology EKG: report reviewed, image reviewed Echo: report reviewed (01/2018: EF 50-55%, mild to mod LVH, mild TR, RVSP 48mmHg, trivial pericardial effusion.)
--- NOTE | 2018-06-05 13:36 | Progress Note ---
Assessment and Plan Atypical chest pain. Acute COPD exacerbation Leukocytosis Pulmonary hypertension Chronic systolic heart failure, compensated. EF 45% Opiate and benzodiazepine dependence Major depression and anxiety Paroxysmal atrial tachycardia Hypertension Rheumatoid arthritis Continue all supportive care as documented below Will benefit from cardiopulmonary monitoring with home health on discharge. Negative CT for PE and Lexiscan on recent hospitalization. Cardiology said no further cardiac workup. Steroid taper, bronchodilators Complete antibitoics Gentle diuresis while monitoring renal function and electrolytes Replace electrolytes as indicated Need to keep her euvoleic to slightly negative in niew of pulmonary HTN Pulmonary hypertension; pulmonary following. No benzodiazepines or opiods per Pscych recommendationw Continue BuSpar Cymbalta and hydroxyzine. Continue blood pressure control Continue glycemic control, target blood glucose 140-180 mg/dL VTE prophylaxis Airway clearance techniques Pulmonary rehab on discharge PT/OT, increase activity as tolerated Subjective Date of service: 06/05/18 Principal diagnosis: cp Interval history: Follow up for acute on chronic respiratory failure, on home oxygen: AE-COPD: Pulmonary HTN Seen and examined. Vitasl, labs, medications, chart and imaging reviewed. She continues to complain of shortness of breath, asking for anxieolytics. Denies any fevers or chills, no nausea or vomiting. No diarrhea, poor sleep For discharge planning, but she is contesting it, feels she needs a few more days in the hospital Objective Vital Signs - 12hr 06/05/18 06/05/18 06/05/18 02:00 03:27 08:00 Temperature 98.5 F 99.0 F Pulse Rate 83 96 H Pulse Rate [ 82 Posterior Bilateral Throughout] Respiratory 18 22 Rate Respiratory 19 Rate [Posterior Bilateral Throughout] Blood Pressure 141/73 Blood Pressure 148/65 [Left] O2 Sat by Pulse 100 97 Oximetry 06/05/18 06/05/18 08:41 08:51 Temperature Pulse Rate Pulse Rate [ 104 H 112 H Posterior Bilateral Throughout] Respiratory Rate Respiratory 20 20 Rate [Posterior Bilateral Throughout] Blood Pressure Blood Pressure [Left] O2 Sat by Pulse 98 Oximetry Constitutional: alert, appears uncomfortable ENT: oropharynx moist Neck: supple, no JVD Ascultation: Bilateral: diminished breath sounds, other (Prolonged expiratory phase.) Cardiovascular: regular rate and rhythm Gastrointestinal: normoactive bowel sounds, soft, non-tender Integumentary: normal Extremities: no cyanosis, no edema Neurologic: normal mental status, non-focal exam, pupils equal and round, CN II- XII normal Psychiatric: anxious CBC and BMP: 06/08/18 04:38 06/08/18 04:38 ABG, PT/INR, D-dimer: ABG POC ABG pH 7.397 (7.35-7.45) 05/30/18 09:01 POC ABG pCO2 51.9 (35-45) H 05/30/18 09:01 POC ABG pO2 110 (80-105) H 05/30/18 09:01 POC ABG HCO3 32.0 (22-26 mml/L) 05/30/18 09:01 POC ABG Total CO2 34 (23-27mmol/L) 05/30/18 09:01 POC ABG O2 Sat 98 05/30/18 09:01 PT/INR, D-dimer PT 12.5 Sec. (12.2-14.9) 05/30/18 06:46 INR 0.88 (0.87-1.13) 05/30/18 06:46 D-Dimer 212.51 ng/mlDDU (0-234) 05/30/18 06:46 Abnormal lab findings: Abnormal Labs 05/30/18 05/30/18 05/30/18 06:26 06:26 06:26 WBC RDW 17.0 H [place] % (Auto) 7.8 H Seg Neutrophils % 74.3 H Seg Neuts % (Manual) Lymphocytes % (Manual) Seg Neutrophils # 7.8 H Seg Neutrophils # Man Lymphocytes # (Manual) POC ABG pCO2 POC ABG pO2 Chloride BUN 24 H Creatinine 1.3 H Glucose 102 H POC Glucose Magnesium 2.40 H Total Protein 5.9 L Ur Specific [place] Urine WBC (Auto) 05/30/18 05/30/18 05/31/18 07:57 09:01 05:20 WBC RDW 17.3 H [place] % (Auto) Seg Neutrophils % Seg Neuts % (Manual) 95.0 H Lymphocytes % (Manual) 4.0 L Seg Neutrophils # Seg Neutrophils # Man 9.6 H Lymphocytes # (Manual) 0.4 L POC ABG pCO2 51.9 H POC ABG pO2 110 H Chloride BUN Creatinine Glucose POC Glucose Magnesium Total Protein Ur Specific [place] 1.032 H Urine WBC (Auto) 7.0 H 05/31/18 06/01/18 06/02/18 05:20 23:25 04:52 WBC 18.4 H RDW 17.2 H [place] % (Auto) Seg Neutrophils % Seg Neuts % (Manual) 97.0 H Lymphocytes % (Manual) 2.0 L Seg Neutrophils # Seg Neutrophils # Man 17.8 H Lymphocytes # (Manual) 0.4 L POC ABG pCO2 POC ABG pO2 Chloride BUN 37 H Creatinine Glucose 153 H POC Glucose 124 H Magnesium Total Protein Ur Specific [place] Urine WBC (Auto) 06/02/18 06/03/18 06/03/18 04:52 05:27 05:27 WBC 13.1 H RDW 17.6 H [place] % (Auto) Seg Neutrophils % Seg Neuts % (Manual) 96.0 H Lymphocytes % (Manual) 3.0 L Seg Neutrophils # Seg Neutrophils # Man 12.6 H Lymphocytes # (Manual) 0.4 L POC ABG pCO2 POC ABG pO2 Chloride 97.0 L BUN 35 H 38 H Creatinine Glucose 134 H 152 H POC Glucose Magnesium Total Protein Ur Specific [place] Urine WBC (Auto)
--- NOTE | 2018-06-05 13:57 | Discharge Summary ---
Providers - Providers Date of Admission: 05/30/18 10:01 Attending physician: ROSELINE FERNANDEZ MD 05/30/18 12:16 Consult to Physician [CONS] Routine Comment: spoke to jonny montelongo/[place] Consulting Provider: JAN WHITTEN Physician Instructions: Reason For Exam: cp 05/31/18 10:55 psychiatry consult [Consult to Mental Health] [CONS] Routine Reason For Exam: depression, anxiety d/o Place consult to:: yes Notified:: office Phone number called:: [phone] Was contact made?: Yes Time called:: 09:27 Comment:: tawana 06/01/18 18:01 Physical Therapy Evaluation and Treat [CONS] Routine Comment: Reason For Exam: weakness 06/03/18 13:23 Consult to Physician [CONS] Routine Comment: Consulting Provider: MARK HAAS Physician Instructions: Reason For Exam: COPD exacerbation [facility]: [facility] Reason for admission: COPD exacerbation, chest pain Condition: Stable Disposition: [id number] HOME UNDER HOME [facility] Time spent for discharge: 32 minutes - Discharge Diagnoses (1) Atypical chest pain Status: Acute (2) CO2 retention Status: Acute (3) COPD exacerbation Status: Acute (4) Chronic narcotic dependence Status: Acute Core Measure Documentation - Palliative Care Palliative Care/ Comfort Measures: Not Applicable - Core Measures Any of the following diagnoses?: none Exam - Physical Exam Narrative exam: Not in cardiopulmonary distress. The patient appeared well nourished and normally developed. Vital signs as documented. Head exam is unremarkable. No scleral icterus . Neck is without jugular venous distension, thyromegaly, or carotid bruits. Lungs are clear to auscultation. Cardiac exam reveals regular rate and Rhythm. Abdominal exam reveals normal bowel sounds. Extremities are nonedematous and both femoral and pedal pulses are normal. 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 No focal weakness. - Constitutional Vitals: Temp Pulse Resp BP Pulse Ox 99.0 F 112 H 20 148/65 98 06/05/18 08:00 06/05/18 08:51 06/05/18 08:51 06/05/18 08:00 06/05/18 08:41 Plan Activity: no restrictions Weight Bearing Status: Full Weight Bearing Diet: low cholesterol, low salt Follow up with: KAREEM LOVEHARPREET LATHAM MD [Primary Care Provider] - 3-5 Days Prescriptions: Aspirin EC [Aspirin Enteric Coated TAB] 81 mg PO QDAY #30 tablet hydrOXYzine HCL [Atarax] 25 mg PO Q6H PRN #60 tablet PRN Reason: Anxiety busPIRone [Buspar] 7.5 mg PO BID #60 tablet Losartan [Cozaar] 50 mg PO QDAY #30 tablet DULoxetine [Cymbalta] 60 mg PO QDAY #30 capsule Potassium Chloride [K-Dur] 20 meq PO DAILY #30 tablet Furosemide [Lasix TAB] 40 mg PO QDAY #30 tablet Metoprolol [Lopressor TAB] 50 mg PO TID #90 tablet Amlodipine Besylate [Norvasc] 10 mg PO DAILY #30 tablet predniSONE [Prednisone] 50 mg PO DAILY #7 tablet ALBUTEROL NEB's [Proventil 0.083% NEBS] 2.5 mg IH Q4HRT PRN #120 nebu PRN Reason: Shortness Of Breath guaiFENesin [Robitussin] 200 mg PO Q4HR #20 oral.liqd Tiotropium [place] [Spiriva Respimat] 1 puff IH DAILY #1 mist.inhal Buprenorphine HCl/Naloxone HCl [Suboxone 8 mg-2 mg SL Film] 1 film SL DAILY #7 film Budesonide/Formoterol Fumarate [Symbicort 160-4.5 Mcg Inhaler] 10.2 gm IH BID #1 hfa.aer.ad Albuterol Sulfate [Ventolin Hfa] 2 puff IH Q4H #1 hfa.aer.ad
[2018-06-05] MEDS: DESYREL PO SCH (21:23)
[2018-06-05] MEDS: LOVENOX SUB-Q SCH (21:25)
[2018-06-06] MEDS: DUONEB *Not for PRN Use IH SCH ×4 (02:31→19:45)
[2018-06-06] MEDS: ROBITUSSIN PO SCH ×8 (02:36→23:10)
[2018-06-06] MEDS: SOLU-Medrol IV SCH ×2 (03:25→10:00)
[2018-06-06] MEDS: ROXICODONE PO PRN ×3 (03:26→17:45)
--- NOTE | 2018-06-06 07:51 | Progress Note ---
Assessment and Plan Assessment and plan: Atypical chest pain. Pt with negative CT for PE and Lexiscan on recent hospitalization. Cardiology said no further cardiac workup. Acute COPD exacerbation. Patient is on IV steroids, bronchodilators/nebulizers. Pulmonary is following. Leukocytosis likely due to high-dose IV steroid, trending down. Pulmonary hypertension; pulmonary following. Chronic systolic heart failure, compensated. EF 45%. continue lasix. Opiate and benzodiazepine dependence; was evaluated by psychiatric and recommen ded no benzos and opoids concurrently. Continue her oxycodone and discontinue benzo. Major depression and anxiety; BuSpar Cymbalta and hydroxyzine. Paroxysmal atrial tachycardia; controlled, cardiology is following Hypertension; continue antihypertensives Chronic pain; continue oxycodone Rheumatoid arthritis. Continue current medications. will follow with community health outreach worker as an O/P. DVT prophylaxis; Lovenox Disposition; patient is cleared by pulmonary and me for discharge. Patient appealed her discharge. - Patient Problems (1) Atypical chest pain Current Visit: Yes Status: Acute (2) CO2 retention Current Visit: Yes Status: Acute (3) COPD exacerbation Current Visit: Yes Status: Acute (4) Chronic narcotic dependence Current Visit: Yes Status: Acute History Interval history: patient was seen and evaluated this morning, patient's shortness of breath is g etting better, she is complaining severe pain. Hospitalist Physical - Physical exam Narrative exam: Not in cardiopulmonary distress. The patient appeared well nourished and normally developed. Vital signs as documented. Head exam is unremarkable. No scleral icterus . Neck is without jugular venous distension, thyromegaly, or carotid bruits. Lungs are clear to auscultation. Cardiac exam reveals regular rate and Rhythm. Abdominal exam reveals normal bowel sounds. Extremities are nonedematous and both femoral and pedal pulses are normal. CUSTOMER AGENT: Alert and oriented 3. No focal weakness. - Constitutional Vitals: Temp Pulse Resp BP Pulse Ox 97.3 F L 79 18 129/66 95 06/06/18 02:57 06/06/18 02:57 06/06/18 02:57 06/06/18 02:57 06/06/18 02:57 General appearance: Present: no acute distress, well-nourished Results - Labs CBC & Chem 7: 06/03/18 05:27 06/03/18 05:27 Labs: Laboratory Last Values WBC 13.1 K/mm3 (4.5-11.0) H 06/03/18 05:27 RBC 3.71 M/mm3 (3.65-5.03) 06/03/18 05:27 Hgb 11.0 gm/dl (10.1-14.3) 06/03/18 05:27 Hct 34.2 % (30.3-42.9) 06/03/18 05:27 MCV 92 fl (79-97) 06/03/18 05:27 MCH 30 pg (28-32) 06/03/18 05:27 MCHC 32 % (30-34) 06/03/18 05:27 RDW 17.6 % (13.2-15.2) H 06/03/18 05:27 Plt Count 166 K/mm3 (140-440) 06/03/18 05:27 Lymph % (Auto) 16.7 % (13.4-35.0) 05/30/18 06:26 [place] % (Auto) 7.8 % (0.0-7.3) H 05/30/18 06:26 Eos % (Auto) 0.9 % (0.0-4.3) 05/30/18 06:26 Baso % (Auto) 0.3 % (0.0-1.8) 05/30/18 06:26 Lymph # 1.8 K/mm3 (1.2-5.4) 05/30/18 06:26 [place] # 0.8 K/mm3 (0.0-0.8) 05/30/18 06:26 Eos # 0.1 K/mm3 (0.0-0.4) 05/30/18 06:26 Baso # 0.0 K/mm3 (0.0-0.1) 05/30/18 06:26 Add Manual Diff Complete 06/03/18 05:27 Total Counted 100 06/03/18 05:27 Seg Neutrophils % Sign Maker 06/03/18 05:27 Seg Neuts % (Manual) 96.0 % (40.0-70.0) H 06/03/18 05:27 Band Neutrophils % 0 % 06/03/18 05:27 Lymphocytes % (Manual) 3.0 % (13.4-35.0) L 06/03/18 05:27 Reactive Lymphs % (Man) 0 % 06/03/18 05:27 Monocytes % (Manual) 1.0 % (0.0-7.3) 06/03/18 05:27 Eosinophils % (Manual) 0 % (0.0-4.3) 06/03/18 05:27 Basophils % (Manual) 0 % (0.0-1.8) 06/03/18 05:27 Metamyelocytes % 0 % 06/03/18 05:27 Myelocytes % 0 % 06/03/18 05:27 Promyelocytes % 0 % 06/03/18 05:27 Blast Cells % 0 % 06/03/18 05:27 Nucleated RBC % Not Reportable 06/03/18 05:27 Seg Neutrophils # 7.8 K/mm3 (1.8-7.7) H 05/30/18 06:26 Seg Neutrophils # Man 12.6 K/mm3 (1.8-7.7) H 06/03/18 05:27 Band Neutrophils # 0.0 K/mm3 06/03/18 05:27 Lymphocytes # (Manual) 0.4 K/mm3 (1.2-5.4) L 06/03/18 05:27 Abs React Lymphs (Man) 0.0 K/mm3 06/03/18 05:27 Monocytes # (Manual) 0.1 K/mm3 (0.0-0.8) 06/03/18 05:27 Eosinophils # (Manual) 0.0 K/mm3 (0.0-0.4) 06/03/18 05:27 Basophils # (Manual) 0.0 K/mm3 (0.0-0.1) 06/03/18 05:27 Metamyelocytes # 0.0 K/mm3 06/03/18 05:27 Myelocytes # 0.0 K/mm3 06/03/18 05:27 Promyelocytes # 0.0 K/mm3 06/03/18 05:27 Blast Cells # 0.0 K/mm3 06/03/18 05:27 WBC Morphology Not Reportable 06/03/18 05:27 Hypersegmented Neuts Not Reportable 06/03/18 05:27 Hyposegmented Neuts Not Reportable 06/03/18 05:27 Hypogranular Neuts Not Reportable 06/03/18 05:27 Smudge Cells Not Reportable 06/03/18 05:27 Toxic Granulation Not Reportable 06/03/18 05:27 Toxic Vacuolation Not Reportable 06/03/18 05:27 Dohle Bodies Not Reportable 06/03/18 05:27 Pelger-Huet Anomaly Not Reportable 06/03/18 05:27 Ashlee Rods Not Reportable 06/03/18 05:27 Platelet Estimate Consistent w auto 06/03/18 05:27 Clumped Platelets Not Reportable 06/03/18 05:27 Plt Clumps, EDTA Not Reportable 06/03/18 05:27 Large Platelets Not Reportable 06/03/18 05:27 Giant Platelets Not Reportable 06/03/18 05:27 Platelet Satelliting Not Reportable 06/03/18 05:27 Plt Morphology Comment Not Reportable 06/03/18 05:27 RBC Morphology Not Reportable 06/03/18 05:27 Dimorphic RBCs Not Reportable 06/03/18 05:27 Polychromasia Not Reportable 06/03/18 05:27 Hypochromasia Not Reportable 06/03/18 05:27 Poikilocytosis Few 06/03/18 05:27 Anisocytosis Few 06/03/18 05:27 Microcytosis Not Reportable 06/03/18 05:27 Macrocytosis Not Reportable 06/03/18 05:27 Spherocytes Not Reportable 06/03/18 05:27 Pappenheimer Bodies Not Reportable 06/03/18 05:27 Sickle Cells Not Reportable 06/03/18 05:27 Target Cells Not Reportable 06/03/18 05:27 Tear Drop Cells Not Reportable 06/03/18 05:27 Ovalocytes Few 06/03/18 05:27 Helmet Cells Not Reportable 06/03/18 05:27 [place] Bodies Not Reportable 06/03/18 05:27 [place] Rings Not Reportable 06/03/18 05:27 [place] Cells Not Reportable 06/03/18 05:27 Bite Cells Not Reportable 06/03/18 05:27 Crenated Cell Not Reportable 06/03/18 05:27 Elliptocytes Not Reportable 06/03/18 05:27 Acanthocytes (Spur) Not Reportable 06/03/18 05:27 Rouleaux Not Reportable 06/03/18 05:27 Hemoglobin C Crystals Not Reportable 06/03/18 05:27 Schistocytes Not Reportable 06/03/18 05:27 Malaria parasites Not Reportable 06/03/18 05:27 Darin Bodies Not Reportable 06/03/18 05:27 Hem Pathologist Commnt No 06/03/18 05:27 PT 12.5 Sec. (12.2-14.9) 05/30/18 06:46 INR 0.88 (0.87-1.13) 05/30/18 06:46 APTT 25.2 Sec. (24.2-36.6) 05/30/18 06:46 D-Dimer 212.51 ng/mlDDU (0-234) 05/30/18 06:46 POC ABG pH 7.397 (7.35-7.45) 05/30/18 09:01 POC ABG pCO2 51.9 (35-45) H 05/30/18 09:01 POC ABG pO2 110 (80-105) H 05/30/18 09:01 POC ABG HCO3 32.0 (22-26 mml/L) 05/30/18 09:01 POC ABG Total CO2 34 (23-27mmol/L) 05/30/18 09:01 POC ABG O2 Sat 98 05/30/18 09:01 POC ABG Base Excess 7 ((-2) - (+3)mmol/L) 05/30/18 09:01 FiO2 28 % 05/30/18 09:01 Sodium 139 mmol/L (137-145) 06/03/18 05:27 Potassium 4.3 mmol/L (3.6-5.0) 06/03/18 05:27 Chloride 98.2 mmol/L (98-107) 06/03/18 05:27 Carbon Dioxide 26 mmol/L (22-30) 06/03/18 05:27 Anion Gap 19 mmol/L 06/03/18 05:27 BUN 38 mg/dL (7-17) H 06/03/18 05:27 Creatinine 1.1 mg/dL (0.7-1.2) 06/03/18 05:27 Estimated GFR 60 ml/min 06/03/18 05:27 BUN/Creatinine Ratio 35 % 06/03/18 05:27 Glucose 152 mg/dL (65-100) H 06/03/18 05:27 POC Glucose 124 (70-105) H 06/01/18 23:25 Lactic Acid 0.90 mmol/L (0.7-2.0) 05/30/18 08:34 Calcium 9.0 mg/dL (8.4-10.2) 06/03/18 05:27 Magnesium 2.40 mg/dL (1.7-2.3) H 05/30/18 06:26 Total Bilirubin 0.30 mg/dL (0.1-1.2) 05/30/18 06:26 Direct Bilirubin < 0.2 mg/dL (0-0.2) 05/30/18 06:26 Indirect Bilirubin 0.1 mg/dL 05/30/18 06:26 AST 13 units/L (5-40) 05/30/18 06:26 ALT 9 units/L (7-56) 05/30/18 06:26 Alkaline Phosphatase 60 units/L (35-129) 05/30/18 06:26 Total Creatine Kinase 104 units/L (30-135) 05/30/18 06:26 CK-MB (CK-2) 2.3 ng/mL (0.0-4.0) 05/30/18 06:26 CK-MB (CK-2) Rel Index 2.2 (0-4) 05/30/18 06:26 Troponin T < 0.010 ng/mL (0.00-0.029) 06/01/18 11:43 NT-Pro-B Natriuret Pep 315.0 pg/mL (0-900) 05/30/18 06:46 Total Protein 5.9 g/dL (6.3-8.2) L 05/30/18 06:26 Albumin 4.2 g/dL (3.9-5) 05/30/18 06:26 Albumin/Globulin Ratio 2.5 % 05/30/18 06:26 TSH 1.470 mlU/mL (0.270-4.200) 05/30/18 06:26 Urine Color Yellow (Yellow) 05/30/18 07:57 Urine Turbidity Clear (Clear) 05/30/18 07:57 Urine pH 5.0 (5.0-7.0) 05/30/18 07:57 Ur Specific [place] 1.032 (1.003-1.030) H 05/30/18 07:57 Urine Protein 30 mg/dl mg/dL (Negative) 05/30/18 07:57 Urine Glucose (UA) Neg mg/dL (Negative) 05/30/18 07:57 Urine Ketones Neg mg/dL (Negative) 05/30/18 07:57 Urine Blood Neg (Negative) 05/30/18 07:57 Urine Nitrite Neg (Negative) 05/30/18 07:57 Urine Bilirubin Neg (Negative) 05/30/18 07:57 Urine Urobilinogen 2.0 mg/dL (<2.0) 05/30/18 07:57 Ur Leukocyte Esterase Mod (Negative) 05/30/18 07:57 Urine WBC (Auto) 7.0 /HPF (0.0-6.0) H 05/30/18 07:57 Urine RBC (Auto) 2.0 /HPF (0.0-6.0) 05/30/18 07:57 U Epithel Cells (Auto) 1.0 /HPF (0-13.0) 05/30/18 07:57 Urine Bacteria (Auto) 1+ /HPF (Negative) 05/30/18 07:57 Hyaline Casts 29 /LPF 05/30/18 07:57 Urine Mucus Few /HPF 05/30/18 07:57 Urine Opiates Screen Presumptive negative 05/30/18 07:57 Urine Methadone Screen Presumptive negative 05/30/18 07:57 Ur Barbiturates Screen Presumptive negative 05/30/18 07:57 Ur Phencyclidine Scrn Presumptive negative 05/30/18 07:57 Ur Amphetamines Screen Presumptive negative 05/30/18 07:57 U Benzodiazepines Scrn Presumptive negative 05/30/18 07:57 Urine Cocaine Screen Presumptive negative 05/30/18 07:57 U Marijuana (THC) Screen Presumptive negative 05/30/18 07:57 Drugs of Abuse Note Disclamer 05/30/18 07:57 Plasma/Serum Alcohol < 0.01 % (0-0.07) 05/30/18 06:26 Active Medications - Current Medications Current Medications: Generic Name Dose Route Start Last Admin Trade Name Freq PRN Reason Stop Dose Admin Acetaminophen 650 mg 05/30/18 12:16 06/01/18 09:24 Tylenol PO 650 mg Q4H PRN Administration Pain MILD(1-3)/Fever >100.5/AMOR Albuterol 2.5 mg 05/30/18 12:16 Proventil IH Q4HRT PRN Shortness Of Breath Albuterol/Ipratropium 1 ampul 05/30/18 14:00 06/06/18 02:31 Duoneb *Not For Prn Use* IH Not Given Q6HRT ANGELES Amlodipine Besylate 10 mg 05/31/18 15:00 06/05/18 10:20 Norvasc PO 10 mg QDAY ANGELES Administration Aspirin 81 mg 05/31/18 11:00 06/05/18 10:21 Halfprin Ec PO 81 mg QDAY ANGELES Administration Atorvastatin Calcium 20 mg 06/01/18 22:00 06/05/18 21:24 Lipitor PO 20 mg QHS ANGELES Administration Buspirone HCl 7.5 mg 06/01/18 15:00 06/05/18 21:23 Buspar PO 7.5 mg BID ANGELES Administration Duloxetine HCl 60 mg 06/01/18 10:00 06/05/18 10:21 Cymbalta PO 60 mg QDAY ANGELES Administration Enoxaparin Sodium 40 mg 05/30/18 22:00 06/05/18 21:25 Lovenox SUB-Q 40 mg QDAY@2200 ANGELES Administration Furosemide 40 mg 05/31/18 15:00 06/05/18 10:20 Lasix PO 40 mg QDAY ANGELES Administration Guaifenesin 200 mg 06/04/18 20:00 06/06/18 06:30 Robitussin PO 200 mg Q4HR ANGELES Administration Hydroxyzine HCl 25 mg 06/04/18 07:22 06/04/18 16:19 Atarax PO 25 mg Q6H PRN Administration Anxiety Losartan Potassium 50 mg 05/31/18 15:00 06/05/18 10:21 Cozaar PO 50 mg QDAY ANGELES Administration Methylprednisolone Sodium Succinate 60 mg 06/05/18 10:00 06/06/18 03:25 Solu-Medrol IV 60 mg Q8H ANGELES Administration Metoprolol Tartrate 50 mg 06/05/18 14:00 06/05/18 20:16 Lopressor PO 50 mg TID ANGELES Administration Ondansetron HCl 4 mg 05/30/18 12:16 06/04/18 09:31 Zofran IV 4 mg Q8H PRN Administration Nausea And Vomiting Oxycodone HCl 15 mg 06/05/18 09:29 06/06/18 03:26 Roxicodone PO 15 mg Q6H PRN Administration Pain, Moderate (4-6) Sodium Chloride 10 ml 05/30/18 22:00 06/05/18 22:30 Sodium Chloride Flush Syringe 10 Ml IV 10 ml BID ANGELES Administration Sodium Chloride 10 ml 05/30/18 12:16 06/02/18 18:11 Sodium Chloride Flush Syringe 10 Ml IV 10 ml PRN PRN Administration LINE FLUSH Trazodone HCl 100 mg 05/31/18 22:00 06/05/18 21:23 Desyrel PO 100 mg HS ANGELES Administration Nutrition/Malnutrition Assess - Dietary Evaluation Nutrition/Malnutrition Findings: Nutrition Notes Start: 06/05/18 10:01 Freq: Status: Active Protocol: Document 06/05/18 10:01 PAT (Rec: 06/05/18 10:04 PAT [id number]) Nutrition Notes Need for Assessment generated from: LOS Initial or Follow up Brief Note Current Diet Cardiac Height 5 ft 5 in Weight 81.7 kg Withams Body Weight (kg) 56.81 BMI 29.9 Subjective/Other Information Pt screened for LOS. She has consumed 97% of meals since admission, which meets >75% estimated energy and pro needs . Is patient on ventilator? No Is Patient Ambulatory and/or Out of Bed Yes REE-([facility]-ambulatory/OOB) [ 1745.744 [id number]] Additional Notes Pro needs 1-1.2g/kg adjBW: 69- 83g/day Fluid needs 1ml/kcal Nutrition Intervention Revisit per MD consult or patient Sign Off request:
[2018-06-06] MEDS: SODIUM CHLORIDE FLUSH SYRINGE 10 ML IV SCH ×2 (09:51→23:13)
[2018-06-06] MEDS: CYMBALTA PO SCH (09:53)
[2018-06-06] MEDS: BUSPAR PO SCH ×2 (09:53→23:06)
[2018-06-06] MEDS: HALFPRIN EC PO SCH (09:53)
[2018-06-06] MEDS: COZAAR PO SCH (09:53)
[2018-06-06] MEDS: LASIX PO SCH (09:54)
[2018-06-06] MEDS: NORVASC PO SCH (09:54)
[2018-06-06] MEDS: LOPRESSOR PO SCH ×3 (09:55→23:09)
--- NOTE | 2018-06-06 14:32 | Progress Note ---
Assessment and Plan Atypical chest pain. Acute COPD exacerbation Leukocytosis Pulmonary hypertension Chronic systolic heart failure, compensated. EF 45% Opiate and benzodiazepine dependence Major depression and anxiety Paroxysmal atrial tachycardia Hypertension Rheumatoid arthritis Continue all supportive care as documented below Will benefit from cardiopulmonary monitoring with home health on discharge. Negative CT for PE and Lexiscan on recent hospitalization. Cardiology said no further cardiac workup. Steroid taper, bronchodilators Complete antibitoics Gentle diuresis while monitoring renal function and electrolytes Replace electrolytes as indicated Need to keep her euvoleic to slightly negative in niew of pulmonary HTN Pulmonary hypertension; pulmonary following. No benzodiazepines or opiods per Pscych recommendationw Continue BuSpar Cymbalta and hydroxyzine. Continue blood pressure control Continue glycemic control, target blood glucose 140-180 mg/dL VTE prophylaxis Airway clearance techniques Pulmonary rehab on discharge PT/OT, increase activity as tolerated Subjective Date of service: 06/06/18 Principal diagnosis: cp Interval history: Follow up for acute on chronic respiratory failure, on home oxygen: AE-COPD: Pulmonary HTN Seen and examined. Vitals, labs, medications, chart and imaging reviewed. She continues to complain of shortness of breath, but feels better, Denies any fevers or chills, no nausea or vomiting. No diarrhea,no chest pain Objective - Exam Narrative Exam: General appearance: Present: no acute distress, well-nourished, - EENT Eyes: Present: PERRL, EOM intact - Neck Neck: Present: supple, normal ROM - Respiratory Respiratory effort: other Respiratory: bilateral: diminished - Cardiovascular Rhythm: S1,S2 Regular - Extremities Extremities: pulses intact, pulses symmetrical, No edema, normal temperature, normal color, Full ROM Extremity abnormal: Peripheral Pulses: within normal limits - Abdominal General gastrointestinal: soft, non-tender, non-distended - Integumentary Integumentary: Present: clear, warm, dry - Psychiatric Psychiatric: appropriate mood/affect, intact judgment & insight - Neurologic Neurologic: CNII-XII intact, no focal deficits, moves all extremities Vital Signs - 12hr 06/06/18 06/06/18 06/06/18 02:56 02:57 08:21 Temperature 97.3 F L 97.3 F L 98.1 F Pulse Rate 79 78 Pulse Rate [ Anterior Bilateral Throughout] Respiratory 18 18 20 Rate Respiratory Rate [Anterior Bilateral Throughout] Blood Pressure 129/66 153/70 Blood Pressure 129/66 [Left] O2 Sat by Pulse 95 97 Oximetry 06/06/18 06/06/18 06/06/18 08:44 08:54 09:53 Temperature Pulse Rate 78 Pulse Rate [ 91 H 87 Anterior Bilateral Throughout] Respiratory Rate Respiratory 20 20 Rate [Anterior Bilateral Throughout] Blood Pressure 153/70 Blood Pressure [Left] O2 Sat by Pulse 96 Oximetry 06/06/18 06/06/18 09:54 14:14 Temperature 98.5 F Pulse Rate 78 94 H Pulse Rate [ Anterior Bilateral Throughout] Respiratory 22 Rate Respiratory Rate [Anterior Bilateral Throughout] Blood Pressure 153/70 137/75 Blood Pressure [Left] O2 Sat by Pulse 96 Oximetry Constitutional: alert, appears uncomfortable ENT: oropharynx moist Neck: supple, no JVD Ascultation: Bilateral: diminished breath sounds, other (Prolonged expiratory phase.) Cardiovascular: regular rate and rhythm Gastrointestinal: normoactive bowel sounds, soft, non-tender Integumentary: normal Extremities: no cyanosis, no edema Neurologic: normal mental status, non-focal exam, pupils equal and round, CN II- XII normal Psychiatric: anxious CBC and BMP: 06/08/18 04:38 06/08/18 04:38 ABG, PT/INR, D-dimer: ABG POC ABG pH 7.397 (7.35-7.45) 05/30/18 09:01 POC ABG pCO2 51.9 (35-45) H 05/30/18 09:01 POC ABG pO2 110 (80-105) H 05/30/18 09:01 POC ABG HCO3 32.0 (22-26 mml/L) 05/30/18 09:01 POC ABG Total CO2 34 (23-27mmol/L) 05/30/18 09:01 POC ABG O2 Sat 98 05/30/18 09:01 PT/INR, D-dimer PT 12.5 Sec. (12.2-14.9) 05/30/18 06:46 INR 0.88 (0.87-1.13) 05/30/18 06:46 D-Dimer 212.51 ng/mlDDU (0-234) 05/30/18 06:46 Abnormal lab findings: Abnormal Labs 05/30/18 05/30/18 05/30/18 06:26 06:26 06:26 WBC RDW 17.0 H [place] % (Auto) 7.8 H Seg Neutrophils % 74.3 H Seg Neuts % (Manual) Lymphocytes % (Manual) Seg Neutrophils # 7.8 H Seg Neutrophils # Man Lymphocytes # (Manual) POC ABG pCO2 POC ABG pO2 Chloride BUN 24 H Creatinine 1.3 H Glucose 102 H POC Glucose Magnesium 2.40 H Total Protein 5.9 L Ur Specific [place] Urine WBC (Auto) 05/30/18 05/30/18 05/31/18 07:57 09:01 05:20 WBC RDW 17.3 H [place] % (Auto) Seg Neutrophils % Seg Neuts % (Manual) 95.0 H Lymphocytes % (Manual) 4.0 L Seg Neutrophils # Seg Neutrophils # Man 9.6 H Lymphocytes # (Manual) 0.4 L POC ABG pCO2 51.9 H POC ABG pO2 110 H Chloride BUN Creatinine Glucose POC Glucose Magnesium Total Protein Ur Specific [place] 1.032 H Urine WBC (Auto) 7.0 H 05/31/18 06/01/18 06/02/18 05:20 23:25 04:52 WBC 18.4 H RDW 17.2 H [place] % (Auto) Seg Neutrophils % Seg Neuts % (Manual) 97.0 H Lymphocytes % (Manual) 2.0 L Seg Neutrophils # Seg Neutrophils # Man 17.8 H Lymphocytes # (Manual) 0.4 L POC ABG pCO2 POC ABG pO2 Chloride BUN 37 H Creatinine Glucose 153 H POC Glucose 124 H Magnesium Total Protein Ur Specific [place] Urine WBC (Auto) 06/02/18 06/03/18 06/03/18 04:52 05:27 05:27 WBC 13.1 H RDW 17.6 H [place] % (Auto) Seg Neutrophils % Seg Neuts % (Manual) 96.0 H Lymphocytes % (Manual) 3.0 L Seg Neutrophils # Seg Neutrophils # Man 12.6 H Lymphocytes # (Manual) 0.4 L POC ABG pCO2 POC ABG pO2 Chloride 97.0 L BUN 35 H 38 H Creatinine Glucose 134 H 152 H POC Glucose Magnesium Total Protein Ur Specific [place] Urine WBC (Auto)
[2018-06-06] MEDS: DELTASONE PO SCH (14:50)
[2018-06-06] MEDS: DESYREL PO SCH (23:07)
[2018-06-06] MEDS: LOVENOX SUB-Q SCH (23:10)
[2018-06-06] MEDS: ATARAX PO PRN (23:11)
[2018-06-07] MEDS: SOLU-Medrol IV SCH (00:03)
[2018-06-07] MEDS: LOPRESSOR PO SCH ×4 (00:03→21:16)
[2018-06-07] MEDS: ROXICODONE PO PRN ×5 (00:58→23:15)
[2018-06-07] MEDS: ROBITUSSIN PO SCH ×6 (01:03→21:15)
[2018-06-07] MEDS: DUONEB *Not for PRN Use IH SCH ×4 (02:31→20:59)
[2018-06-07] MEDS: BUSPAR PO SCH ×2 (09:49→21:36)
[2018-06-07] MEDS: SODIUM CHLORIDE FLUSH SYRINGE 10 ML IV SCH ×2 (09:49→21:17)
[2018-06-07] MEDS: CYMBALTA PO SCH (09:50)
[2018-06-07] MEDS: DELTASONE PO SCH (09:50)
[2018-06-07] MEDS: HALFPRIN EC PO SCH (09:51)
[2018-06-07] MEDS: COZAAR PO SCH (09:51)
[2018-06-07] MEDS: NORVASC PO SCH (09:51)
[2018-06-07] MEDS: LASIX PO SCH (09:52)
--- NOTE | 2018-06-07 14:26 | Progress Note ---
Assessment and Plan Assessment and plan: Atypical chest pain, r/o acs -Probably secondary to GERD -negative CT for PE and Lexiscan on recent hospitalization. -Cardiology recommended no further cardiac workup. Acute COPD exacerbation. -Improved -On oral steroid and bronchodilators/nebulizers. -Pulmonary is following. -Leukocytosis likely due to high-dose IV steroid -level trending down. Chronic hypoxic respiratory failure -On home oxygen 2-3 L Pulmonary hypertension -pulmonology following. Chronic systolic heart failure with EF 45%. -Compensated, continue oral lasix. Hyperglycemia -Probably secondary to steroid use MARKELL -Probably vasomotor nephropathy, improved. Chronic Opiate and benzodiazepine dependence -evaluated by psychiatric and recommended no benzos and opoids concurrently. -Continue oxycodone, benzo discontinued. Major depression and anxiety, stable -Continue Buspar Cymbalta and hydroxyzine. Paroxysmal atrial tachycardia -Heart rate controlled. Hypertension -Controlled on current antihypertensives Chronic pain syndrome -continue oxycodone Rheumatoid arthritis. -For outpatient rheumatology f/u DVT prophylaxis; Lovenox Disposition: Patient is clinically stable for discharge but she appealed her discharge. She now states that she will be ready to go tomorrow History Interval history: Patient has no new complaints. She denies shortness of breath. Hospitalist Physical - Constitutional Vitals: Temp Pulse Resp BP Pulse Ox 97.8 F 72 20 122/59 100 06/07/18 08:12 06/07/18 10:00 06/07/18 08:21 06/07/18 09:51 06/07/18 08:11 General appearance: Present: no acute distress, well-nourished - EENT Eyes: Present: PERRL, EOM intact ENT: hearing intact, clear oral mucosa - Neck Neck: Present: supple - Respiratory Respiratory effort: normal Respiratory: bilateral: CTA - Cardiovascular Rhythm: regular Heart Sounds: Present: S1 & S2 - Extremities Extremities: No edema - Abdominal General gastrointestinal: soft, non-tender, normal bowel sounds - Integumentary Integumentary: Present: clear, warm, dry - Neurologic Neurologic: CNII-XII intact Results - Labs CBC & Chem 7: 06/03/18 05:27 06/03/18 05:27 Labs: Laboratory Last Values WBC 13.1 K/mm3 (4.5-11.0) H 06/03/18 05:27 RBC 3.71 M/mm3 (3.65-5.03) 06/03/18 05:27 Hgb 11.0 gm/dl (10.1-14.3) 06/03/18 05:27 Hct 34.2 % (30.3-42.9) 06/03/18 05:27 MCV 92 fl (79-97) 06/03/18 05:27 MCH 30 pg (28-32) 06/03/18 05:27 MCHC 32 % (30-34) 06/03/18 05:27 RDW 17.6 % (13.2-15.2) H 06/03/18 05:27 Plt Count 166 K/mm3 (140-440) 06/03/18 05:27 Lymph % (Auto) 16.7 % (13.4-35.0) 05/30/18 06:26 Wolfe % (Auto) 7.8 % (0.0-7.3) H 05/30/18 06:26 Eos % (Auto) 0.9 % (0.0-4.3) 05/30/18 06:26 Baso % (Auto) 0.3 % (0.0-1.8) 05/30/18 06:26 Lymph # 1.8 K/mm3 (1.2-5.4) 05/30/18 06:26 Wolfe # 0.8 K/mm3 (0.0-0.8) 05/30/18 06:26 Eos # 0.1 K/mm3 (0.0-0.4) 05/30/18 06:26 Baso # 0.0 K/mm3 (0.0-0.1) 05/30/18 06:26 Add Manual Diff Complete 06/03/18 05:27 Total Counted 100 06/03/18 05:27 Seg Neutrophils % Surveillance Technician 06/03/18 05:27 Seg Neuts % (Manual) 96.0 % (40.0-70.0) H 06/03/18 05:27 Band Neutrophils % 0 % 06/03/18 05:27 Lymphocytes % (Manual) 3.0 % (13.4-35.0) L 06/03/18 05:27 Reactive Lymphs % (Man) 0 % 06/03/18 05:27 Monocytes % (Manual) 1.0 % (0.0-7.3) 06/03/18 05:27 Eosinophils % (Manual) 0 % (0.0-4.3) 06/03/18 05:27 Basophils % (Manual) 0 % (0.0-1.8) 06/03/18 05:27 Metamyelocytes % 0 % 06/03/18 05:27 Myelocytes % 0 % 06/03/18 05:27 Promyelocytes % 0 % 06/03/18 05:27 Blast Cells % 0 % 06/03/18 05:27 Nucleated RBC % Not Reportable 06/03/18 05:27 Seg Neutrophils # 7.8 K/mm3 (1.8-7.7) H 05/30/18 06:26 Seg Neutrophils # Man 12.6 K/mm3 (1.8-7.7) H 06/03/18 05:27 Band Neutrophils # 0.0 K/mm3 06/03/18 05:27 Lymphocytes # (Manual) 0.4 K/mm3 (1.2-5.4) L 06/03/18 05:27 Abs React Lymphs (Man) 0.0 K/mm3 06/03/18 05:27 Monocytes # (Manual) 0.1 K/mm3 (0.0-0.8) 06/03/18 05:27 Eosinophils # (Manual) 0.0 K/mm3 (0.0-0.4) 06/03/18 05:27 Basophils # (Manual) 0.0 K/mm3 (0.0-0.1) 06/03/18 05:27 Metamyelocytes # 0.0 K/mm3 06/03/18 05:27 Myelocytes # 0.0 K/mm3 06/03/18 05:27 Promyelocytes # 0.0 K/mm3 06/03/18 05:27 Blast Cells # 0.0 K/mm3 06/03/18 05:27 WBC Morphology Not Reportable 06/03/18 05:27 Hypersegmented Neuts Not Reportable 06/03/18 05:27 Hyposegmented Neuts Not Reportable 06/03/18 05:27 Hypogranular Neuts Not Reportable 06/03/18 05:27 Smudge Cells Not Reportable 06/03/18 05:27 Toxic Granulation Not Reportable 06/03/18 05:27 Toxic Vacuolation Not Reportable 06/03/18 05:27 Dohle Bodies Not Reportable 06/03/18 05:27 Pelger-Huet Anomaly Not Reportable 06/03/18 05:27 Ashele Rods Not Reportable 06/03/18 05:27 Platelet Estimate Consistent w auto 06/03/18 05:27 Clumped Platelets Not Reportable 06/03/18 05:27 Plt Clumps, EDTA Not Reportable 06/03/18 05:27 Large Platelets Not Reportable 06/03/18 05:27 Giant Platelets Not Reportable 06/03/18 05:27 Platelet Satelliting Not Reportable 06/03/18 05:27 Plt Morphology Comment Not Reportable 06/03/18 05:27 RBC Morphology Not Reportable 06/03/18 05:27 Dimorphic RBCs Not Reportable 06/03/18 05:27 Polychromasia Not Reportable 06/03/18 05:27 Hypochromasia Not Reportable 06/03/18 05:27 Poikilocytosis Few 06/03/18 05:27 Anisocytosis Few 06/03/18 05:27 Microcytosis Not Reportable 06/03/18 05:27 Macrocytosis Not Reportable 06/03/18 05:27 Spherocytes Not Reportable 06/03/18 05:27 Pappenheimer Bodies Not Reportable 06/03/18 05:27 Sickle Cells Not Reportable 06/03/18 05:27 Target Cells Not Reportable 06/03/18 05:27 Tear Drop Cells Not Reportable 06/03/18 05:27 Ovalocytes Few 06/03/18 05:27 Helmet Cells Not Reportable 06/03/18 05:27 Panda-Pierre Part Bodies Not Reportable 06/03/18 05:27 [place] Rings Not Reportable 06/03/18 05:27 Taylor Cells Not Reportable 06/03/18 05:27 Bite Cells Not Reportable 06/03/18 05:27 Crenated Cell Not Reportable 06/03/18 05:27 Elliptocytes Not Reportable 06/03/18 05:27 Acanthocytes (Spur) Not Reportable 06/03/18 05:27 Rouleaux Not Reportable 06/03/18 05:27 Hemoglobin C Crystals Not Reportable 06/03/18 05:27 Schistocytes Not Reportable 06/03/18 05:27 Malaria parasites Not Reportable 06/03/18 05:27 Darin Bodies Not Reportable 06/03/18 05:27 Hem Pathologist Commnt No 06/03/18 05:27 PT 12.5 Sec. (12.2-14.9) 05/30/18 06:46 INR 0.88 (0.87-1.13) 05/30/18 06:46 APTT 25.2 Sec. (24.2-36.6) 05/30/18 06:46 D-Dimer 212.51 ng/mlDDU (0-234) 05/30/18 06:46 POC ABG pH 7.397 (7.35-7.45) 05/30/18 09:01 POC ABG pCO2 51.9 (35-45) H 05/30/18 09:01 POC ABG pO2 110 (80-105) H 05/30/18 09:01 POC ABG HCO3 32.0 (22-26 mml/L) 05/30/18 09:01 POC ABG Total CO2 34 (23-27mmol/L) 05/30/18 09:01 POC ABG O2 Sat 98 05/30/18 09:01 POC ABG Base Excess 7 ((-2) - (+3)mmol/L) 05/30/18 09:01 FiO2 28 % 05/30/18 09:01 Sodium 139 mmol/L (137-145) 06/03/18 05:27 Potassium 4.3 mmol/L (3.6-5.0) 06/03/18 05:27 Chloride 98.2 mmol/L (98-107) 06/03/18 05:27 Carbon Dioxide 26 mmol/L (22-30) 06/03/18 05:27 Anion Gap 19 mmol/L 06/03/18 05:27 BUN 38 mg/dL (7-17) H 06/03/18 05:27 Creatinine 1.1 mg/dL (0.7-1.2) 06/03/18 05:27 Estimated GFR 60 ml/min 06/03/18 05:27 BUN/Creatinine Ratio 35 % 06/03/18 05:27 Glucose 152 mg/dL (65-100) H 06/03/18 05:27 POC Glucose 124 (70-105) H 06/01/18 23:25 Lactic Acid 0.90 mmol/L (0.7-2.0) 05/30/18 08:34 Calcium 9.0 mg/dL (8.4-10.2) 06/03/18 05:27 Magnesium 2.40 mg/dL (1.7-2.3) H 05/30/18 06:26 Total Bilirubin 0.30 mg/dL (0.1-1.2) 05/30/18 06:26 Direct Bilirubin < 0.2 mg/dL (0-0.2) 05/30/18 06:26 Indirect Bilirubin 0.1 mg/dL 05/30/18 06:26 AST 13 units/L (5-40) 05/30/18 06:26 ALT 9 units/L (7-56) 05/30/18 06:26 Alkaline Phosphatase 60 units/L (35-129) 05/30/18 06:26 Total Creatine Kinase 104 units/L (30-135) 05/30/18 06:26 CK-MB (CK-2) 2.3 ng/mL (0.0-4.0) 05/30/18 06:26 CK-MB (CK-2) Rel Index 2.2 (0-4) 05/30/18 06:26 Troponin T < 0.010 ng/mL (0.00-0.029) 06/01/18 11:43 NT-Pro-B Natriuret Pep 315.0 pg/mL (0-900) 05/30/18 06:46 Total Protein 5.9 g/dL (6.3-8.2) L 05/30/18 06:26 Albumin 4.2 g/dL (3.9-5) 05/30/18 06:26 Albumin/Globulin Ratio 2.5 % 05/30/18 06:26 TSH 1.470 mlU/mL (0.270-4.200) 05/30/18 06:26 Urine Color Yellow (Yellow) 05/30/18 07:57 Urine Turbidity Clear (Clear) 05/30/18 07:57 Urine pH 5.0 (5.0-7.0) 05/30/18 07:57 Ur Specific [place] 1.032 (1.003-1.030) H 05/30/18 07:57 Urine Protein 30 mg/dl mg/dL (Negative) 05/30/18 07:57 Urine Glucose (UA) Neg mg/dL (Negative) 05/30/18 07:57 Urine Ketones Neg mg/dL (Negative) 05/30/18 07:57 Urine Blood Neg (Negative) 05/30/18 07:57 Urine Nitrite Neg (Negative) 05/30/18 07:57 Urine Bilirubin Neg (Negative) 05/30/18 07:57 Urine Urobilinogen 2.0 mg/dL (<2.0) 05/30/18 07:57 Ur Leukocyte Esterase Mod (Negative) 05/30/18 07:57 Urine WBC (Auto) 7.0 /HPF (0.0-6.0) H 05/30/18 07:57 Urine RBC (Auto) 2.0 /HPF (0.0-6.0) 05/30/18 07:57 U Epithel Cells (Auto) 1.0 /HPF (0-13.0) 05/30/18 07:57 Urine Bacteria (Auto) 1+ /HPF (Negative) 05/30/18 07:57 Hyaline Casts 29 /LPF 05/30/18 07:57 Urine Mucus Few /HPF 05/30/18 07:57 Urine Opiates Screen Presumptive negative 05/30/18 07:57 Urine Methadone Screen Presumptive negative 05/30/18 07:57 Ur Barbiturates Screen Presumptive negative 05/30/18 07:57 Ur Phencyclidine Scrn Presumptive negative 05/30/18 07:57 Ur Amphetamines Screen Presumptive negative 05/30/18 07:57 U Benzodiazepines Scrn Presumptive negative 05/30/18 07:57 Urine Cocaine Screen Presumptive negative 05/30/18 07:57 U Marijuana (THC) Screen Presumptive negative 05/30/18 07:57 Drugs of Abuse Note Disclamer 05/30/18 07:57 Plasma/Serum Alcohol < 0.01 % (0-0.07) 05/30/18 06:26 Active Medications - Current Medications Current Medications: Generic Name Dose Route Start Last Admin Trade Name Freq PRN Reason Stop Dose Admin Acetaminophen 650 mg 05/30/18 12:16 06/01/18 09:24 Tylenol PO 650 mg Q4H PRN Administration Pain MILD(1-3)/Fever >100.5/AMOR Albuterol 2.5 mg 05/30/18 12:16 Proventil IH Q4HRT PRN Shortness Of Breath Albuterol/Ipratropium 1 ampul 05/30/18 14:00 06/07/18 13:36 Duoneb *Not For Prn Use* IH 1 ampul Q6HRT ANGELES Administration Amlodipine Besylate 10 mg 05/31/18 15:00 06/07/18 09:51 Norvasc PO 10 mg QDAY ANGELES Administration Aspirin 81 mg 05/31/18 11:00 06/07/18 09:51 Halfprin Ec PO 81 mg QDAY ANGELES Administration Atorvastatin Calcium 20 mg 06/01/18 22:00 06/06/18 23:08 Lipitor PO 20 mg QHS ANGELES Administration Buspirone HCl 7.5 mg 06/01/18 15:00 06/07/18 09:49 Buspar PO 7.5 mg BID ANGELES Administration Duloxetine HCl 60 mg 06/01/18 10:00 06/07/18 09:50 Cymbalta PO 60 mg QDAY ANGELES Administration Enoxaparin Sodium 40 mg 05/30/18 22:00 06/06/18 23:10 Lovenox SUB-Q 40 mg QDAY@2200 ANGELES Administration Furosemide 40 mg 05/31/18 15:00 06/07/18 09:52 Lasix PO 40 mg QDAY ANGELES Administration Guaifenesin 200 mg 06/04/18 20:00 06/07/18 09:49 Robitussin PO 200 mg Q4HR ANGELES Administration Hydroxyzine HCl 25 mg 06/04/18 07:22 06/06/18 23:11 Atarax PO 25 mg Q6H PRN Administration Anxiety Losartan Potassium 50 mg 05/31/18 15:00 06/07/18 09:51 Cozaar PO 50 mg QDAY ANGELES Administration Metoprolol Tartrate 50 mg 06/05/18 14:00 06/07/18 09:52 Lopressor PO 50 mg TID ANGELES Administration Ondansetron HCl 4 mg 05/30/18 12:16 06/04/18 09:31 Zofran IV 4 mg Q8H PRN Administration Nausea And Vomiting Oxycodone HCl 15 mg 06/05/18 09:29 06/07/18 12:00 Roxicodone PO 15 mg Q6H PRN Administration Pain, Moderate (4-6) Prednisone 30 mg 06/06/18 15:00 06/07/18 09:50 Deltasone PO 30 mg QDAY ANGELES Administration Sodium Chloride 10 ml 05/30/18 22:00 06/07/18 09:49 Sodium Chloride Flush Syringe 10 Ml IV 10 ml BID ANGELES Administration Sodium Chloride 10 ml 05/30/18 12:16 06/02/18 18:11 Sodium Chloride Flush Syringe 10 Ml IV 10 ml PRN PRN Administration LINE FLUSH Trazodone HCl 100 mg 05/31/18 22:00 06/06/18 23:07 Desyrel PO 100 mg HS ANGELES Administration Nutrition/Malnutrition Assess - Dietary Evaluation Nutrition/Malnutrition Findings: Nutrition Notes Start: 06/05/18 10:01 Freq: Status: Active Protocol: Document 06/05/18 10:01 PAT (Rec: 06/05/18 10:04 PAT [id number]) Nutrition Notes Need for Assessment generated from: LOS Initial or Follow up Brief Note Current Diet Cardiac Height 5 ft 5 in Weight 81.7 kg Echo Body Weight (kg) 56.81 BMI 29.9 Subjective/Other Information Pt screened for LOS. She has consumed 97% of meals since admission, which meets >75% estimated energy and pro needs . Is patient on ventilator? No Is Patient Ambulatory and/or Out of Bed Yes REE-([facility]-ambulatory/OOB) [ 1745.744 [id number]] Additional Notes Pro needs 1-1.2g/kg adjBW: 69- 83g/day Fluid needs 1ml/kcal Nutrition Intervention Revisit per MD consult or patient Sign Off request:
[2018-06-07] MEDS: ATARAX PO PRN ×2 (14:33→21:36)
--- NOTE | 2018-06-07 16:25 | Progress Note ---
Assessment and Plan Atypical chest pain. Acute COPD exacerbation Leukocytosis Pulmonary hypertension Chronic systolic heart failure, compensated. EF 45% Opiate and benzodiazepine dependence Major depression and anxiety Paroxysmal atrial tachycardia Hypertension Rheumatoid arthritis Continue all supportive care as documented below Will benefit from cardiopulmonary monitoring with home health on discharge. Early outpatient pulmonary follow up Negative CT for PE and Lexiscan on recent hospitalization. Cardiology said no further cardiac workup. Steroid taper, bronchodilators Complete antibitoics Gentle diuresis while monitoring renal function and electrolytes Replace electrolytes as indicated Need to keep her euvoleic to slightly negative in niew of pulmonary HTN Pulmonary hypertension; pulmonary following. No benzodiazepines or opiods per Pscych recommendationw Continue BuSpar Cymbalta and hydroxyzine. Continue blood pressure control Continue glycemic control, target blood glucose 140-180 mg/dL VTE prophylaxis Airway clearance techniques Pulmonary rehab on discharge PT/OT, increase activity as tolerated Subjective Date of service: 06/07/18 Principal diagnosis: cp Interval history: Follow up for acute on chronic respiratory failure, on home oxygen: AE-COPD: Pulmonary HTN Seen and examined. Vitals, labs, medications, chart and imaging reviewed. She continues to complain of shortness of breath, but feels better, Denies any fevers or chills, no nausea or vomiting. No diarrhea,no chest pain. Awaiting results of the appeal for discharge planning. She has asked if she can wait until tomorrow before she leaves the [facility] Objective Vital Signs - 12hr 06/07/18 06/07/18 06/07/18 06:15 07:15 07:35 Temperature Pulse Rate 70 Pulse Rate [ Anterior Bilateral Throughout] Pulse Rate [ Posterior Bilateral Throughout] Respiratory 20 20 18 Rate Respiratory Rate [Anterior Bilateral Throughout] Respiratory Rate [Posterior Bilateral Throughout] Blood Pressure 122/59 O2 Sat by Pulse 100 Oximetry 06/07/18 06/07/18 06/07/18 08:11 08:12 08:21 Temperature 97.8 F Pulse Rate Pulse Rate [ Anterior Bilateral Throughout] Pulse Rate [ 74 83 Posterior Bilateral Throughout] Respiratory Rate Respiratory Rate [Anterior Bilateral Throughout] Respiratory 20 20 Rate [Posterior Bilateral Throughout] Blood Pressure O2 Sat by Pulse 100 Oximetry 06/07/18 06/07/18 06/07/18 09:51 09:52 10:00 Temperature Pulse Rate 70 70 72 Pulse Rate [ Anterior Bilateral Throughout] Pulse Rate [ Posterior Bilateral Throughout] Respiratory Rate Respiratory Rate [Anterior Bilateral Throughout] Respiratory Rate [Posterior Bilateral Throughout] Blood Pressure 122/59 O2 Sat by Pulse Oximetry 06/07/18 06/07/18 06/07/18 13:36 13:46 14:32 Temperature Pulse Rate 78 Pulse Rate [ 88 90 Anterior Bilateral Throughout] Pulse Rate [ Posterior Bilateral Throughout] Respiratory Rate Respiratory 20 20 Rate [Anterior Bilateral Throughout] Respiratory Rate [Posterior Bilateral Throughout] Blood Pressure 140/76 O2 Sat by Pulse Oximetry 06/07/18 06/07/18 15:20 15:39 Temperature 98.9 F Pulse Rate Pulse Rate [ Anterior Bilateral Throughout] Pulse Rate [ Posterior Bilateral Throughout] Respiratory Rate Respiratory Rate [Anterior Bilateral Throughout] Respiratory Rate [Posterior Bilateral Throughout] Blood Pressure O2 Sat by Pulse 98 Oximetry Constitutional: no acute distress, alert ENT: oropharynx moist Neck: supple, no lymphadenopathy, no JVD Effort: mildly labored Ascultation: Bilateral: clear, diminished breath sounds Cardiovascular: regular rate and rhythm, other (S1,S2, no murmurs) Gastrointestinal: normoactive bowel sounds, soft, non-tender Integumentary: normal Extremities: no cyanosis, no edema Neurologic: normal mental status, non-focal exam, pupils equal and round, CN II- XII normal, motor strength normal and Psychiatric: mood appropriate, affect normal CBC and BMP: 06/08/18 04:38 06/08/18 04:38 ABG, PT/INR, D-dimer: ABG POC ABG pH 7.397 (7.35-7.45) 05/30/18 09:01 POC ABG pCO2 51.9 (35-45) H 05/30/18 09:01 POC ABG pO2 110 (80-105) H 05/30/18 09:01 POC ABG HCO3 32.0 (22-26 mml/L) 05/30/18 09:01 POC ABG Total CO2 34 (23-27mmol/L) 05/30/18 09:01 POC ABG O2 Sat 98 05/30/18 09:01 PT/INR, D-dimer PT 12.5 Sec. (12.2-14.9) 05/30/18 06:46 INR 0.88 (0.87-1.13) 05/30/18 06:46 D-Dimer 212.51 ng/mlDDU (0-234) 05/30/18 06:46 Abnormal lab findings: Abnormal Labs 05/30/18 05/30/18 05/30/18 06:26 06:26 06:26 WBC RDW 17.0 H [place] % (Auto) 7.8 H Seg Neutrophils % 74.3 H Seg Neuts % (Manual) Lymphocytes % (Manual) Seg Neutrophils # 7.8 H Seg Neutrophils # Man Lymphocytes # (Manual) POC ABG pCO2 POC ABG pO2 Chloride BUN 24 H Creatinine 1.3 H Glucose 102 H POC Glucose Magnesium 2.40 H Total Protein 5.9 L Ur Specific [place] Urine WBC (Auto) 05/30/18 05/30/18 05/31/18 07:57 09:01 05:20 WBC RDW 17.3 H [place] % (Auto) Seg Neutrophils % Seg Neuts % (Manual) 95.0 H Lymphocytes % (Manual) 4.0 L Seg Neutrophils # Seg Neutrophils # Man 9.6 H Lymphocytes # (Manual) 0.4 L POC ABG pCO2 51.9 H POC ABG pO2 110 H Chloride BUN Creatinine Glucose POC Glucose Magnesium Total Protein Ur Specific [place] 1.032 H Urine WBC (Auto) 7.0 H 05/31/18 06/01/18 06/02/18 05:20 23:25 04:52 WBC 18.4 H RDW 17.2 H [place] % (Auto) Seg Neutrophils % Seg Neuts % (Manual) 97.0 H Lymphocytes % (Manual) 2.0 L Seg Neutrophils # Seg Neutrophils # Man 17.8 H Lymphocytes # (Manual) 0.4 L POC ABG pCO2 POC ABG pO2 Chloride BUN 37 H Creatinine Glucose 153 H POC Glucose 124 H Magnesium Total Protein Ur Specific [place] Urine WBC (Auto) 06/02/18 06/03/18 06/03/18 04:52 05:27 05:27 WBC 13.1 H RDW 17.6 H [place] % (Auto) Seg Neutrophils % Seg Neuts % (Manual) 96.0 H Lymphocytes % (Manual) 3.0 L Seg Neutrophils # Seg Neutrophils # Man 12.6 H Lymphocytes # (Manual) 0.4 L POC ABG pCO2 POC ABG pO2 Chloride 97.0 L BUN 35 H 38 H Creatinine Glucose 134 H 152 H POC Glucose Magnesium Total Protein Ur Specific [place] Urine WBC (Auto) Allied health notes reviewed: nursing
[2018-06-07] MEDS: DESYREL PO SCH (21:15)
[2018-06-07] MEDS: LOVENOX SUB-Q SCH (21:16)
[2018-06-08] MEDS: ROBITUSSIN PO SCH ×6 (01:44→21:19)
[2018-06-08] MEDS: DUONEB *Not for PRN Use IH SCH ×4 (02:17→20:58)
[2018-06-08] MEDS: ROXICODONE PO PRN ×3 (05:20→21:18)
[2018-06-08] MEDS: ATARAX PO PRN ×2 (05:21→15:46)
[2018-06-08 06:04] LABS: Hematocrit 34.1 % (30.3-42.9); Mean Corpuscular HGB Conc 32 % (30-34); Mean Corpuscular Volume 92 fl (79-97); Platelet Count 202 K/mm3 (140-440); Red Cell Distribution Width 17.6 % (13.2-15.2)
[2018-06-08 06:25] LABS: BUN/Creatinine Ratio 38; Blood Urea Nitrogen 34 mg/dL (7-17); Calcium 8.4 mg/dL (8.4-10.2); Hemolysis Index 39
[2018-06-08 07:06] LABS: Anisocytosis 1+; Band Neutrophils # (Manual) 0.2 K/mm3; Basophils % (Manual) 0 % (0.0-1.8); Platelet Estimate Consistent w Auto; Poikilocytosis 1+; Total Cells Counted 100
[2018-06-08] MEDS: LOPRESSOR PO SCH ×3 (09:06→21:19)
[2018-06-08] MEDS: SODIUM CHLORIDE FLUSH SYRINGE 10 ML IV SCH ×2 (10:34→21:20)
[2018-06-08] MEDS: DELTASONE PO SCH (11:02)
[2018-06-08] MEDS: BUSPAR PO SCH ×2 (11:03→21:17)
[2018-06-08] MEDS: NORVASC PO SCH (11:05)
[2018-06-08] MEDS: HALFPRIN EC PO SCH (11:05)
[2018-06-08] MEDS: COZAAR PO SCH (11:06)
[2018-06-08] MEDS: LASIX PO SCH (11:06)
[2018-06-08] MEDS: CYMBALTA PO SCH (15:32)
[2018-06-08] MEDS ORDERED: ATIVAN IV PRN (15:55)
--- NOTE | 2018-06-08 16:47 | Progress Note ---
Assessment and Plan - Patient Problems (1) Atypical chest pain Current Visit: Yes Status: Acute Plan to address problem: Resolved most likely secondary to coughing. (2) COPD exacerbation Current Visit: Yes Status: Acute Plan to address problem: Patient with COPD exacerbation. Patient had dyspnea cough. Also had what appeared to be possible benzo withdrawal. Patient very hyper anxious. Although I think a small dose of benzo may help with dyspnea we'll continue to discontinue benzo and add Flexeril. 4 patient is muscle relaxants and pain. Continue nebulizes steroids and empiric antibiotics. (3) Chronic narcotic dependence Current Visit: Yes Status: Acute Plan to address problem: Continue oxycodone chronic narcotic dependence. (4) CHF (congestive heart failure) Current Visit: No Status: Acute Plan to address problem: Patient ejection fraction 45% very well compensated at this particular time. (5) Muscle strain Current Visit: Yes Status: Acute Plan to address problem: Muscle strain of bacteria secondary to chronic coughing accessory muscle use will add Flexeril. History Interval history: Patient state her muscles were tight and needed something to help her relax. Chronic benzodiazepine use noted now. At present patient appears to be very anxious. Hospitalist Physical - Constitutional Vitals: Temp Pulse Resp BP Pulse Ox 98.5 F 98 H 18 145/73 97 06/08/18 13:11 06/08/18 15:45 06/08/18 13:24 06/08/18 15:45 06/08/18 13:11 General appearance: Present: no acute distress, mild distress, well-nourished, other (anterior wheezing) - EENT Eyes: Present: PERRL, EOM intact - Neck Neck: Present: supple, normal ROM - Respiratory Respiratory effort: other (accessory muscle use with conversation at times.) Respiratory: bilateral: rhonchi, wheezing - Cardiovascular Rhythm: other (tachycardia) - Extremities Extremities: pulses intact, pulses symmetrical, No edema, normal temperature, normal color, Full ROM Extremity abnormal: other (patient also has tenderness and spasms at the trapezius muscle group.) Peripheral Pulses: within normal limits - Abdominal General gastrointestinal: soft, non-tender, non-distended - Integumentary Integumentary: Present: clear, warm, dry - Psychiatric Psychiatric: appropriate mood/affect, intact judgment & insight - Neurologic Neurologic: CNII-XII intact, no focal deficits, moves all extremities Results - Labs CBC & Chem 7: 06/08/18 04:38 06/08/18 04:38 Labs: Laboratory Last Values WBC 11.9 K/mm3 (4.5-11.0) H 06/08/18 04:38 RBC 3.70 M/mm3 (3.65-5.03) 06/08/18 04:38 Hgb 11.0 gm/dl (10.1-14.3) 06/08/18 04:38 Hct 34.1 % (30.3-42.9) 06/08/18 04:38 MCV 92 fl (79-97) 06/08/18 04:38 MCH 30 pg (28-32) 06/08/18 04:38 MCHC 32 % (30-34) 06/08/18 04:38 RDW 17.6 % (13.2-15.2) H 06/08/18 04:38 Plt Count 202 K/mm3 (140-440) 06/08/18 04:38 Lymph % (Auto) 16.7 % (13.4-35.0) 05/30/18 06:26 [place] % (Auto) 7.8 % (0.0-7.3) H 05/30/18 06:26 Eos % (Auto) 0.9 % (0.0-4.3) 05/30/18 06:26 Baso % (Auto) 0.3 % (0.0-1.8) 05/30/18 06:26 Lymph # 1.8 K/mm3 (1.2-5.4) 05/30/18 06:26 [place] # 0.8 K/mm3 (0.0-0.8) 05/30/18 06:26 Eos # 0.1 K/mm3 (0.0-0.4) 05/30/18 06:26 Baso # 0.0 K/mm3 (0.0-0.1) 05/30/18 06:26 Add Manual Diff Complete 06/08/18 04:38 Total Counted 100 06/08/18 04:38 Seg Neutrophils % [employer] 06/03/18 05:27 Seg Neuts % (Manual) 80.0 % (40.0-70.0) H 06/08/18 04:38 Band Neutrophils % 2.0 % 06/08/18 04:38 Lymphocytes % (Manual) 13.0 % (13.4-35.0) L 06/08/18 04:38 Reactive Lymphs % (Man) 0 % 06/08/18 04:38 Monocytes % (Manual) 4.0 % (0.0-7.3) 06/08/18 04:38 Eosinophils % (Manual) 1.0 % (0.0-4.3) 06/08/18 04:38 Basophils % (Manual) 0 % (0.0-1.8) 06/08/18 04:38 Metamyelocytes % 0 % 06/08/18 04:38 Myelocytes % 0 % 06/08/18 04:38 Promyelocytes % 0 % 06/08/18 04:38 Blast Cells % 0 % 06/08/18 04:38 Nucleated RBC % Not Reportable 06/08/18 04:38 Seg Neutrophils # 7.8 K/mm3 (1.8-7.7) H 05/30/18 06:26 Seg Neutrophils # Man 9.5 K/mm3 (1.8-7.7) H 06/08/18 04:38 Band Neutrophils # 0.2 K/mm3 06/08/18 04:38 Lymphocytes # (Manual) 1.5 K/mm3 (1.2-5.4) 06/08/18 04:38 Abs React Lymphs (Man) 0.0 K/mm3 06/08/18 04:38 Monocytes # (Manual) 0.5 K/mm3 (0.0-0.8) 06/08/18 04:38 Eosinophils # (Manual) 0.1 K/mm3 (0.0-0.4) 06/08/18 04:38 Basophils # (Manual) 0.0 K/mm3 (0.0-0.1) 06/08/18 04:38 Metamyelocytes # 0.0 K/mm3 06/08/18 04:38 Myelocytes # 0.0 K/mm3 06/08/18 04:38 Promyelocytes # 0.0 K/mm3 06/08/18 04:38 Blast Cells # 0.0 K/mm3 06/08/18 04:38 WBC Morphology Not Reportable 06/08/18 04:38 Hypersegmented Neuts Not Reportable 06/08/18 04:38 Hyposegmented Neuts Not Reportable 06/08/18 04:38 Hypogranular Neuts Not Reportable 06/08/18 04:38 Smudge Cells Not Reportable 06/08/18 04:38 Toxic Granulation Not Reportable 06/08/18 04:38 Toxic Vacuolation Not Reportable 06/08/18 04:38 Dohle Bodies Not Reportable 06/08/18 04:38 Pelger-Huet Anomaly Not Reportable 06/08/18 04:38 Ashlee Rods Not Reportable 06/08/18 04:38 Platelet Estimate Consistent w auto 06/08/18 04:38 Clumped Platelets Not Reportable 06/08/18 04:38 Plt Clumps, EDTA Not Reportable 06/08/18 04:38 Large Platelets Not Reportable 06/08/18 04:38 Giant Platelets Not Reportable 06/08/18 04:38 Platelet Satelliting Not Reportable 06/08/18 04:38 Plt Morphology Comment Not Reportable 06/08/18 04:38 RBC Morphology Not Reportable 06/08/18 04:38 Dimorphic RBCs Not Reportable 06/08/18 04:38 Polychromasia Not Reportable 06/08/18 04:38 Hypochromasia Not Reportable 06/08/18 04:38 Poikilocytosis 1+ 06/08/18 04:38 Anisocytosis 1+ 06/08/18 04:38 Microcytosis Not Reportable 06/08/18 04:38 Macrocytosis Not Reportable 06/08/18 04:38 Spherocytes Not Reportable 06/08/18 04:38 Pappenheimer Bodies Not Reportable 06/08/18 04:38 Sickle Cells Not Reportable 06/08/18 04:38 Target Cells Not Reportable 06/08/18 04:38 Tear Drop Cells Not Reportable 06/08/18 04:38 Ovalocytes Not Reportable 06/08/18 04:38 Helmet Cells Not Reportable 06/08/18 04:38 Panda-Poth Bodies Not Reportable 06/08/18 04:38 Hunter Rings Not Reportable 06/08/18 04:38 Taylor Cells Not Reportable 06/08/18 04:38 Bite Cells Not Reportable 06/08/18 04:38 Crenated Cell Not Reportable 06/08/18 04:38 Elliptocytes Not Reportable 06/08/18 04:38 Acanthocytes (Spur) Not Reportable 06/08/18 04:38 Rouleaux Not Reportable 06/08/18 04:38 Hemoglobin C Crystals Not Reportable 06/08/18 04:38 Schistocytes Not Reportable 06/08/18 04:38 Malaria parasites Not Reportable 06/08/18 04:38 Darin Bodies Not Reportable 06/08/18 04:38 Hem Pathologist Commnt No 06/08/18 04:38 PT 12.5 Sec. (12.2-14.9) 05/30/18 06:46 INR 0.88 (0.87-1.13) 05/30/18 06:46 APTT 25.2 Sec. (24.2-36.6) 05/30/18 06:46 D-Dimer 212.51 ng/mlDDU (0-234) 05/30/18 06:46 POC ABG pH 7.397 (7.35-7.45) 05/30/18 09:01 POC ABG pCO2 51.9 (35-45) H 05/30/18 09:01 POC ABG pO2 110 (80-105) H 05/30/18 09:01 POC ABG HCO3 32.0 (22-26 mml/L) 05/30/18 09:01 POC ABG Total CO2 34 (23-27mmol/L) 05/30/18 09:01 POC ABG O2 Sat 98 05/30/18 09:01 POC ABG Base Excess 7 ((-2) - (+3)mmol/L) 05/30/18 09:01 FiO2 28 % 05/30/18 09:01 Sodium 147 mmol/L (137-145) H D 06/08/18 04:38 Potassium 3.9 mmol/L (3.6-5.0) 06/08/18 04:38 Chloride 103.8 mmol/L (98-107) 06/08/18 04:38 Carbon Dioxide 31 mmol/L (22-30) H 06/08/18 04:38 Anion Gap 16 mmol/L 06/08/18 04:38 BUN 34 mg/dL (7-17) H 06/08/18 04:38 Creatinine 0.9 mg/dL (0.7-1.2) 06/08/18 04:38 Estimated GFR > 60 ml/min 06/08/18 04:38 BUN/Creatinine Ratio 38 % 06/08/18 04:38 Glucose 126 mg/dL (65-100) H 06/08/18 04:38 POC Glucose 124 (70-105) H 06/01/18 23:25 Lactic Acid 0.90 mmol/L (0.7-2.0) 05/30/18 08:34 Calcium 8.4 mg/dL (8.4-10.2) 06/08/18 04:38 Magnesium 2.40 mg/dL (1.7-2.3) H 05/30/18 06:26 Total Bilirubin 0.30 mg/dL (0.1-1.2) 05/30/18 06:26 Direct Bilirubin < 0.2 mg/dL (0-0.2) 05/30/18 06:26 Indirect Bilirubin 0.1 mg/dL 05/30/18 06:26 AST 13 units/L (5-40) 05/30/18 06:26 ALT 9 units/L (7-56) 05/30/18 06:26 Alkaline Phosphatase 60 units/L (35-129) 05/30/18 06:26 Total Creatine Kinase 104 units/L (30-135) 05/30/18 06:26 CK-MB (CK-2) 2.3 ng/mL (0.0-4.0) 05/30/18 06:26 CK-MB (CK-2) Rel Index 2.2 (0-4) 05/30/18 06:26 Troponin T < 0.010 ng/mL (0.00-0.029) 06/01/18 11:43 NT-Pro-B Natriuret Pep 315.0 pg/mL (0-900) 05/30/18 06:46 Total Protein 5.9 g/dL (6.3-8.2) L 05/30/18 06:26 Albumin 4.2 g/dL (3.9-5) 05/30/18 06:26 Albumin/Globulin Ratio 2.5 % 05/30/18 06:26 TSH 1.470 mlU/mL (0.270-4.200) 05/30/18 06:26 Urine Color Yellow (Yellow) 05/30/18 07:57 Urine Turbidity Clear (Clear) 05/30/18 07:57 Urine pH 5.0 (5.0-7.0) 05/30/18 07:57 Ur Specific [place] 1.032 (1.003-1.030) H 05/30/18 07:57 Urine Protein 30 mg/dl mg/dL (Negative) 05/30/18 07:57 Urine Glucose (UA) Neg mg/dL (Negative) 05/30/18 07:57 Urine Ketones Neg mg/dL (Negative) 05/30/18 07:57 Urine Blood Neg (Negative) 05/30/18 07:57 Urine Nitrite Neg (Negative) 05/30/18 07:57 Urine Bilirubin Neg (Negative) 05/30/18 07:57 Urine Urobilinogen 2.0 mg/dL (<2.0) 05/30/18 07:57 Ur Leukocyte Esterase Mod (Negative) 05/30/18 07:57 Urine WBC (Auto) 7.0 /HPF (0.0-6.0) H 05/30/18 07:57 Urine RBC (Auto) 2.0 /HPF (0.0-6.0) 05/30/18 07:57 U Epithel Cells (Auto) 1.0 /HPF (0-13.0) 05/30/18 07:57 Urine Bacteria (Auto) 1+ /HPF (Negative) 05/30/18 07:57 Hyaline Casts 29 /LPF 05/30/18 07:57 Urine Mucus Few /HPF 05/30/18 07:57 Urine Opiates Screen Presumptive negative 05/30/18 07:57 Urine Methadone Screen Presumptive negative 05/30/18 07:57 Ur Barbiturates Screen Presumptive negative 05/30/18 07:57 Ur Phencyclidine Scrn Presumptive negative 05/30/18 07:57 Ur Amphetamines Screen Presumptive negative 05/30/18 07:57 U Benzodiazepines Scrn Presumptive negative 05/30/18 07:57 Urine Cocaine Screen Presumptive negative 05/30/18 07:57 U Marijuana (THC) Screen Presumptive negative 05/30/18 07:57 Drugs of Abuse Note Disclamer 05/30/18 07:57 Plasma/Serum Alcohol < 0.01 % (0-0.07) 05/30/18 06:26 Active Medications - Current Medications Current Medications: Generic Name Dose Route Start Last Admin Trade Name Freq PRN Reason Stop Dose Admin Acetaminophen 650 mg 05/30/18 12:16 06/01/18 09:24 Tylenol PO 650 mg Q4H PRN Administration Pain MILD(1-3)/Fever >100.5/AMOR Albuterol 2.5 mg 05/30/18 12:16 Proventil IH Q4HRT PRN Shortness Of Breath Albuterol/Ipratropium 1 ampul 05/30/18 14:00 06/08/18 13:24 Duoneb *Not For Prn Use* IH 1 ampul Q6HRT ANGELES Administration Amlodipine Besylate 10 mg 05/31/18 15:00 06/08/18 11:05 Norvasc PO 10 mg QDAY ANGELES Administration Aspirin 81 mg 05/31/18 11:00 06/08/18 11:05 Halfprin Ec PO 81 mg QDAY ANGELES Administration Atorvastatin Calcium 20 mg 06/01/18 22:00 06/07/18 21:16 Lipitor PO 20 mg QHS ANGELES Administration Buspirone HCl 7.5 mg 06/01/18 15:00 06/08/18 11:03 Buspar PO 7.5 mg BID ANGELES Administration Duloxetine HCl 60 mg 06/01/18 10:00 06/08/18 15:32 Cymbalta PO 60 mg QDAY ANGELES Administration Enoxaparin Sodium 40 mg 05/30/18 22:00 06/07/18 21:16 Lovenox SUB-Q 40 mg QDAY@2200 ANGELES Administration Furosemide 40 mg 05/31/18 15:00 06/08/18 11:06 Lasix PO 40 mg QDAY ANGELES Administration Guaifenesin 200 mg 06/04/18 20:00 06/08/18 15:46 Robitussin PO 200 mg Q4HR ANGELES Administration Hydroxyzine HCl 25 mg 06/04/18 07:22 06/08/18 15:46 Atarax PO 25 mg Q6H PRN Administration Anxiety Lorazepam 1 mg 06/08/18 15:55 06/08/18 16:28 Ativan IV 1 mg Q6HR PRN Administration Anxiety Losartan Potassium 50 mg 05/31/18 15:00 06/08/18 11:06 Cozaar PO 50 mg QDAY ANGELES Administration Metoprolol Tartrate 50 mg 06/05/18 14:00 06/08/18 15:45 Lopressor PO 50 mg TID ANGELES Administration Ondansetron HCl 4 mg 05/30/18 12:16 06/04/18 09:31 Zofran IV 4 mg Q8H PRN Administration Nausea And Vomiting Oxycodone HCl 15 mg 06/05/18 09:29 06/08/18 11:03 Roxicodone PO 15 mg Q6H PRN Administration Pain, Moderate (4-6) Prednisone 30 mg 06/06/18 15:00 06/08/18 11:02 Deltasone PO 30 mg QDAY ANGELES Administration Sodium Chloride 10 ml 05/30/18 22:00 06/08/18 10:34 Sodium Chloride Flush Syringe 10 Ml IV 10 ml BID ANGELES Administration Sodium Chloride 10 ml 05/30/18 12:16 06/02/18 18:11 Sodium Chloride Flush Syringe 10 Ml IV 10 ml PRN PRN Administration LINE FLUSH Trazodone HCl 100 mg 05/31/18 22:00 06/07/18 21:15 Desyrel PO 100 mg HS ANGELES Administration Nutrition/Malnutrition Assess - Dietary Evaluation Nutrition/Malnutrition Findings: Nutrition Notes Start: 06/05/18 10:01 Freq: Status: Active Protocol: Document 06/05/18 10:01 PAT (Rec: 06/05/18 10:04 PAT [id number]) Nutrition Notes Need for Assessment generated from: LOS Initial or Follow up Brief Note Current Diet Cardiac Height 5 ft 5 in Weight 81.7 kg [place] Body Weight (kg) 56.81 BMI 29.9 Subjective/Other Information Pt screened for LOS. She has consumed 97% of meals since admission, which meets >75% estimated energy and pro needs . Is patient on ventilator? No Is Patient Ambulatory and/or Out of Bed Yes REE-([place]. Jeor-ambulatory/OOB) [ [id number] [id number]] Additional Notes Pro needs 1-1.2g/kg adjBW: 69- 83g/day Fluid needs 1ml/kcal Nutrition Intervention Revisit per MD consult or patient Sign Off request:
--- NOTE | 2018-06-08 18:50 | Progress Note ---
Assessment and Plan Patient awake. Resting on 2 litres o2. O2 saturation 97%.Patient says breathing better.No acute respiratory distress. - Patient Problems (1) Atypical chest pain Current Visit: Yes Status: Acute Plan to address problem: Patient is on Oxycodone. (2) COPD exacerbation Current Visit: Yes Status: Acute Plan to address problem: O2 2 litres via nasal canula. Albuterol/atrovent aerosol treatments q 6 hours. Prednisone 30 mg po qd. Continue S/C Lovenox. (3) Acute respiratory failure Current Visit: No Status: Acute Qualifiers: Respiratory failure complication: hypoxia Qualified Code(s): J96.01 - Acute respiratory failure with hypoxia Plan to address problem: O2 2 litres via nasal canula. Albuterol/atrovent aerosol treatments q 6 hours. Prednisone 30 mg po qd. Continue S/C Lovenox (4) Atelectasis of right lung Current Visit: No Status: Acute Plan to address problem: Deep breathing and coughing. Chest PT qid. Incentive spirometry. (5) Chronic narcotic dependence Current Visit: Yes Status: Acute Plan to address problem: Management as per primary care and ppsychiatry. Subjective Date of service: 06/08/18 Principal diagnosis: cp Interval history: Patient awake. Resting on 2 litres o2. O2 saturation 97%.Patient says breathing better.No acute respiratory distress. Objective Vital Signs - 12hr 06/08/18 06/08/18 06/08/18 07:43 07:46 07:49 Temperature 98.0 F Pulse Rate 84 Pulse Rate [ 87 Posterior Bilateral Throughout] Respiratory 20 Rate Respiratory 18 Rate [Posterior Bilateral Throughout] Blood Pressure 158/61 O2 Sat by Pulse 98 98 Oximetry 06/08/18 06/08/18 06/08/18 07:57 10:00 13:11 Temperature 98.5 F Pulse Rate 98 H 83 Pulse Rate [ 89 Posterior Bilateral Throughout] Respiratory 20 Rate Respiratory 18 Rate [Posterior Bilateral Throughout] Blood Pressure 118/67 O2 Sat by Pulse 97 Oximetry 06/08/18 06/08/18 06/08/18 13:18 13:24 15:45 Temperature Pulse Rate 98 H Pulse Rate [ 87 87 Posterior Bilateral Throughout] Respiratory Rate Respiratory 18 18 Rate [Posterior Bilateral Throughout] Blood Pressure 145/73 O2 Sat by Pulse Oximetry Constitutional: no acute distress, alert ENT: oropharynx moist Neck: supple, no JVD Ascultation: Bilateral: diminished breath sounds, other (Prolonged expiratory phase.) Cardiovascular: regular rate and rhythm Gastrointestinal: normoactive bowel sounds, soft, non-tender Integumentary: normal Extremities: no cyanosis, no edema Neurologic: normal mental status, non-focal exam, pupils equal and round, CN II- XII normal Psychiatric: anxious CBC and BMP: 06/08/18 04:38 06/08/18 04:38 ABG, PT/INR, D-dimer: ABG POC ABG pH 7.397 (7.35-7.45) 05/30/18 09:01 POC ABG pCO2 51.9 (35-45) H 05/30/18 09:01 POC ABG pO2 110 (80-105) H 05/30/18 09:01 POC ABG HCO3 32.0 (22-26 mml/L) 05/30/18 09:01 POC ABG Total CO2 34 (23-27mmol/L) 05/30/18 09:01 POC ABG O2 Sat 98 05/30/18 09:01 PT/INR, D-dimer PT 12.5 Sec. (12.2-14.9) 05/30/18 06:46 INR 0.88 (0.87-1.13) 05/30/18 06:46 D-Dimer 212.51 ng/mlDDU (0-234) 05/30/18 06:46 Abnormal lab findings: Abnormal Labs 05/30/18 05/30/18 05/30/18 06:26 06:26 06:26 WBC RDW 17.0 H [place] % (Auto) 7.8 H Seg Neutrophils % 74.3 H Seg Neuts % (Manual) Lymphocytes % (Manual) Seg Neutrophils # 7.8 H Seg Neutrophils # Man Lymphocytes # (Manual) POC ABG pCO2 POC ABG pO2 Sodium Chloride Carbon Dioxide BUN 24 H Creatinine 1.3 H Glucose 102 H POC Glucose Magnesium 2.40 H Total Protein 5.9 L Ur Specific [place] Urine WBC (Auto) 05/30/18 05/30/18 05/31/18 07:57 09:01 05:20 WBC RDW 17.3 H [place] % (Auto) Seg Neutrophils % Seg Neuts % (Manual) 95.0 H Lymphocytes % (Manual) 4.0 L Seg Neutrophils # Seg Neutrophils # Man 9.6 H Lymphocytes # (Manual) 0.4 L POC ABG pCO2 51.9 H POC ABG pO2 110 H Sodium Chloride Carbon Dioxide BUN Creatinine Glucose POC Glucose Magnesium Total Protein Ur Specific [place] 1.032 H Urine WBC (Auto) 7.0 H 05/31/18 06/01/18 06/02/18 05:20 23:25 04:52 WBC 18.4 H RDW 17.2 H [place] % (Auto) Seg Neutrophils % Seg Neuts % (Manual) 97.0 H Lymphocytes % (Manual) 2.0 L Seg Neutrophils # Seg Neutrophils # Man 17.8 H Lymphocytes # (Manual) 0.4 L POC ABG pCO2 POC ABG pO2 Sodium Chloride Carbon Dioxide BUN 37 H Creatinine Glucose 153 H POC Glucose 124 H Magnesium Total Protein Ur Specific [place] Urine WBC (Auto) 06/02/18 06/03/18 06/03/18 04:52 05:27 05:27 WBC 13.1 H RDW 17.6 H [place] % (Auto) Seg Neutrophils % Seg Neuts % (Manual) 96.0 H Lymphocytes % (Manual) 3.0 L Seg Neutrophils # Seg Neutrophils # Man 12.6 H Lymphocytes # (Manual) 0.4 L POC ABG pCO2 POC ABG pO2 Sodium Chloride 97.0 L Carbon Dioxide BUN 35 H 38 H Creatinine Glucose 134 H 152 H POC Glucose Magnesium Total Protein Ur Specific [place] Urine WBC (Auto) 06/08/18 06/08/18 04:38 04:38 WBC 11.9 H RDW 17.6 H [place] % (Auto) Seg Neutrophils % Seg Neuts % (Manual) 80.0 H Lymphocytes % (Manual) 13.0 L Seg Neutrophils # Seg Neutrophils # Man 9.5 H Lymphocytes # (Manual) POC ABG pCO2 POC ABG pO2 Sodium 147 H D Chloride Carbon Dioxide 31 H BUN 34 H Creatinine Glucose 126 H POC Glucose Magnesium Total Protein Ur Specific [place] Urine WBC (Auto)
[2018-06-08] MEDS: DESYREL PO SCH (21:17)
[2018-06-08] MEDS: LOVENOX SUB-Q SCH (21:18)
[2018-06-08] MEDS: FLEXERIL PO PRN (21:18)
[2018-06-09] MEDS: ROBITUSSIN PO SCH ×6 (02:23→21:34)
[2018-06-09] MEDS: DUONEB *Not for PRN Use IH SCH ×4 (02:33→21:37)
[2018-06-09] MEDS: LOPRESSOR PO SCH ×3 (08:12→21:34)
[2018-06-09] MEDS: ROXICODONE PO PRN ×3 (08:16→21:32)
[2018-06-09] MEDS: ZOFRAN IV PRN (08:17)
[2018-06-09] MEDS: SODIUM CHLORIDE FLUSH SYRINGE 10 ML IV PRN (08:18)
[2018-06-09] MEDS: LASIX PO SCH (09:14)
[2018-06-09] MEDS: DELTASONE PO SCH (09:14)
[2018-06-09] MEDS: NORVASC PO SCH (09:14)
[2018-06-09] MEDS: CYMBALTA PO SCH (09:14)
[2018-06-09] MEDS: BUSPAR PO SCH ×2 (09:15→21:33)
[2018-06-09] MEDS: COZAAR PO SCH (09:15)
[2018-06-09] MEDS: HALFPRIN EC PO SCH (09:15)
[2018-06-09] MEDS: SODIUM CHLORIDE FLUSH SYRINGE 10 ML IV SCH ×2 (09:16→21:35)
[2018-06-09] MEDS: FLEXERIL PO PRN ×3 (09:33→21:34)
--- NOTE | 2018-06-09 09:53 | Progress Note ---
Assessment and Plan Assessment and plan: Atypical chest pain. Pt with negative CT for PE and Lexiscan on recent hospitalization. Cardiology said no further cardiac workup. Acute COPD exacerbation. Patient is on IV steroids, bronchodilators/nebulizers. Pulmonary is following. Leukocytosis likely due to high-dose IV steroid, trending down. Pulmonary hypertension; pulmonary following. Chronic systolic heart failure, compensated. EF 45%. continue lasix. Opiate and benzodiazepine dependence; was evaluated by psychiatric and recommend ed no benzos and opoids concurrently. Continue her oxycodone and discontinue benzo. Major depression and anxiety; BuSpar Cymbalta and hydroxyzine. Paroxysmal atrial tachycardia; controlled, cardiology is following Hypertension; continue antihypertensives Chronic pain; continue oxycodone Rheumatoid arthritis. Continue current medications. will follow with accounts payable coordinator as an O/P. DVT prophylaxis; Lovenox Disposition; patient is cleared by pulmonary and me for discharge. Patient appealed her discharge. History Interval history: No new issues overnight Hospitalist Physical - Constitutional Vitals: Temp Pulse Resp BP Pulse Ox 98.2 F 87 18 140/67 100 06/09/18 07:22 06/09/18 09:18 06/09/18 09:18 06/09/18 09:15 06/09/18 09:18 General appearance: Present: no acute distress, well-nourished, other (anterior wheezing) - EENT Eyes: Present: PERRL, EOM intact ENT: hearing intact, clear oral mucosa, dentition normal - Neck Neck: Present: supple, normal ROM - Respiratory Respiratory effort: normal Respiratory: bilateral: diminished, wheezing - Cardiovascular Rhythm: regular Heart Sounds: Present: S1 & S2. Absent: gallop, rub - Extremities Extremities: no ischemia, No edema, Full ROM - Abdominal General gastrointestinal: soft, non-tender, non-distended, normal bowel sounds - Integumentary Integumentary: Present: clear, warm, dry - Neurologic Neurologic: CNII-XII intact, moves all extremities Results - Labs CBC & Chem 7: 06/08/18 04:38 06/08/18 04:38 Labs: Laboratory Last Values WBC 11.9 K/mm3 (4.5-11.0) H 06/08/18 04:38 RBC 3.70 M/mm3 (3.65-5.03) 06/08/18 04:38 Hgb 11.0 gm/dl (10.1-14.3) 06/08/18 04:38 Hct 34.1 % (30.3-42.9) 06/08/18 04:38 MCV 92 fl (79-97) 06/08/18 04:38 MCH 30 pg (28-32) 06/08/18 04:38 MCHC 32 % (30-34) 06/08/18 04:38 RDW 17.6 % (13.2-15.2) H 06/08/18 04:38 Plt Count 202 K/mm3 (140-440) 06/08/18 04:38 Lymph % (Auto) 16.7 % (13.4-35.0) 05/30/18 06:26 [place] % (Auto) 7.8 % (0.0-7.3) H 05/30/18 06:26 Eos % (Auto) 0.9 % (0.0-4.3) 05/30/18 06:26 Baso % (Auto) 0.3 % (0.0-1.8) 05/30/18 06:26 Lymph # 1.8 K/mm3 (1.2-5.4) 05/30/18 06:26 [place] # 0.8 K/mm3 (0.0-0.8) 05/30/18 06:26 Eos # 0.1 K/mm3 (0.0-0.4) 05/30/18 06:26 Baso # 0.0 K/mm3 (0.0-0.1) 05/30/18 06:26 Add Manual Diff Complete 06/08/18 04:38 Total Counted 100 06/08/18 04:38 Seg Neutrophils % Visually Impaired Teacher 06/03/18 05:27 Seg Neuts % (Manual) 80.0 % (40.0-70.0) H 06/08/18 04:38 Band Neutrophils % 2.0 % 06/08/18 04:38 Lymphocytes % (Manual) 13.0 % (13.4-35.0) L 06/08/18 04:38 Reactive Lymphs % (Man) 0 % 06/08/18 04:38 Monocytes % (Manual) 4.0 % (0.0-7.3) 06/08/18 04:38 Eosinophils % (Manual) 1.0 % (0.0-4.3) 06/08/18 04:38 Basophils % (Manual) 0 % (0.0-1.8) 06/08/18 04:38 Metamyelocytes % 0 % 06/08/18 04:38 Myelocytes % 0 % 06/08/18 04:38 Promyelocytes % 0 % 06/08/18 04:38 Blast Cells % 0 % 06/08/18 04:38 Nucleated RBC % Not Reportable 06/08/18 04:38 Seg Neutrophils # 7.8 K/mm3 (1.8-7.7) H 05/30/18 06:26 Seg Neutrophils # Man 9.5 K/mm3 (1.8-7.7) H 06/08/18 04:38 Band Neutrophils # 0.2 K/mm3 06/08/18 04:38 Lymphocytes # (Manual) 1.5 K/mm3 (1.2-5.4) 06/08/18 04:38 Abs React Lymphs (Man) 0.0 K/mm3 06/08/18 04:38 Monocytes # (Manual) 0.5 K/mm3 (0.0-0.8) 06/08/18 04:38 Eosinophils # (Manual) 0.1 K/mm3 (0.0-0.4) 06/08/18 04:38 Basophils # (Manual) 0.0 K/mm3 (0.0-0.1) 06/08/18 04:38 Metamyelocytes # 0.0 K/mm3 06/08/18 04:38 Myelocytes # 0.0 K/mm3 06/08/18 04:38 Promyelocytes # 0.0 K/mm3 06/08/18 04:38 Blast Cells # 0.0 K/mm3 06/08/18 04:38 WBC Morphology Not Reportable 06/08/18 04:38 Hypersegmented Neuts Not Reportable 06/08/18 04:38 Hyposegmented Neuts Not Reportable 06/08/18 04:38 Hypogranular Neuts Not Reportable 06/08/18 04:38 Smudge Cells Not Reportable 06/08/18 04:38 Toxic Granulation Not Reportable 06/08/18 04:38 Toxic Vacuolation Not Reportable 06/08/18 04:38 Dohle Bodies Not Reportable 06/08/18 04:38 Pelger-Huet Anomaly Not Reportable 06/08/18 04:38 Ashlee Rods Not Reportable 06/08/18 04:38 Platelet Estimate Consistent w auto 06/08/18 04:38 Clumped Platelets Not Reportable 06/08/18 04:38 Plt Clumps, EDTA Not Reportable 06/08/18 04:38 Large Platelets Not Reportable 06/08/18 04:38 Giant Platelets Not Reportable 06/08/18 04:38 Platelet Satelliting Not Reportable 06/08/18 04:38 Plt Morphology Comment Not Reportable 06/08/18 04:38 RBC Morphology Not Reportable 06/08/18 04:38 Dimorphic RBCs Not Reportable 06/08/18 04:38 Polychromasia Not Reportable 06/08/18 04:38 Hypochromasia Not Reportable 06/08/18 04:38 Poikilocytosis 1+ 06/08/18 04:38 Anisocytosis 1+ 06/08/18 04:38 Microcytosis Not Reportable 06/08/18 04:38 Macrocytosis Not Reportable 06/08/18 04:38 Spherocytes Not Reportable 06/08/18 04:38 Pappenheimer Bodies Not Reportable 06/08/18 04:38 Sickle Cells Not Reportable 06/08/18 04:38 Target Cells Not Reportable 06/08/18 04:38 Tear Drop Cells Not Reportable 06/08/18 04:38 Ovalocytes Not Reportable 06/08/18 04:38 Helmet Cells Not Reportable 06/08/18 04:38 Panda-[place]et Bodies Not Reportable 06/08/18 04:38 [place] Rings Not Reportable 06/08/18 04:38 [place] Cells Not Reportable 06/08/18 04:38 Bite Cells Not Reportable 06/08/18 04:38 Crenated Cell Not Reportable 06/08/18 04:38 Elliptocytes Not Reportable 06/08/18 04:38 Acanthocytes (Spur) Not Reportable 06/08/18 04:38 Rouleaux Not Reportable 06/08/18 04:38 Hemoglobin C Crystals Not Reportable 06/08/18 04:38 Schistocytes Not Reportable 06/08/18 04:38 Malaria parasites Not Reportable 06/08/18 04:38 Darin Bodies Not Reportable 06/08/18 04:38 Hem Pathologist Commnt No 06/08/18 04:38 PT 12.5 Sec. (12.2-14.9) 05/30/18 06:46 INR 0.88 (0.87-1.13) 05/30/18 06:46 APTT 25.2 Sec. (24.2-36.6) 05/30/18 06:46 D-Dimer 212.51 ng/mlDDU (0-234) 05/30/18 06:46 POC ABG pH 7.397 (7.35-7.45) 05/30/18 09:01 POC ABG pCO2 51.9 (35-45) H 05/30/18 09:01 POC ABG pO2 110 (80-105) H 05/30/18 09:01 POC ABG HCO3 32.0 (22-26 mml/L) 05/30/18 09:01 POC ABG Total CO2 34 (23-27mmol/L) 05/30/18 09:01 POC ABG O2 Sat 98 05/30/18 09:01 POC ABG Base Excess 7 ((-2) - (+3)mmol/L) 05/30/18 09:01 FiO2 28 % 05/30/18 09:01 Sodium 147 mmol/L (137-145) H D 06/08/18 04:38 Potassium 3.9 mmol/L (3.6-5.0) 06/08/18 04:38 Chloride 103.8 mmol/L (98-107) 06/08/18 04:38 Carbon Dioxide 31 mmol/L (22-30) H 06/08/18 04:38 Anion Gap 16 mmol/L 06/08/18 04:38 BUN 34 mg/dL (7-17) H 06/08/18 04:38 Creatinine 0.9 mg/dL (0.7-1.2) 06/08/18 04:38 Estimated GFR > 60 ml/min 06/08/18 04:38 BUN/Creatinine Ratio 38 % 06/08/18 04:38 Glucose 126 mg/dL (65-100) H 06/08/18 04:38 POC Glucose 124 (70-105) H 06/01/18 23:25 Lactic Acid 0.90 mmol/L (0.7-2.0) 05/30/18 08:34 Calcium 8.4 mg/dL (8.4-10.2) 06/08/18 04:38 Magnesium 2.40 mg/dL (1.7-2.3) H 05/30/18 06:26 Total Bilirubin 0.30 mg/dL (0.1-1.2) 05/30/18 06:26 Direct Bilirubin < 0.2 mg/dL (0-0.2) 05/30/18 06:26 Indirect Bilirubin 0.1 mg/dL 05/30/18 06:26 AST 13 units/L (5-40) 05/30/18 06:26 ALT 9 units/L (7-56) 05/30/18 06:26 Alkaline Phosphatase 60 units/L (35-129) 05/30/18 06:26 Total Creatine Kinase 104 units/L (30-135) 05/30/18 06:26 CK-MB (CK-2) 2.3 ng/mL (0.0-4.0) 05/30/18 06:26 CK-MB (CK-2) Rel Index 2.2 (0-4) 05/30/18 06:26 Troponin T < 0.010 ng/mL (0.00-0.029) 06/01/18 11:43 NT-Pro-B Natriuret Pep 315.0 pg/mL (0-900) 05/30/18 06:46 Total Protein 5.9 g/dL (6.3-8.2) L 05/30/18 06:26 Albumin 4.2 g/dL (3.9-5) 05/30/18 06:26 Albumin/Globulin Ratio 2.5 % 05/30/18 06:26 TSH 1.470 mlU/mL (0.270-4.200) 05/30/18 06:26 Urine Color Yellow (Yellow) 05/30/18 07:57 Urine Turbidity Clear (Clear) 05/30/18 07:57 Urine pH 5.0 (5.0-7.0) 05/30/18 07:57 Ur Specific [place] 1.032 (1.003-1.030) H 05/30/18 07:57 Urine Protein 30 mg/dl mg/dL (Negative) 05/30/18 07:57 Urine Glucose (UA) Neg mg/dL (Negative) 05/30/18 07:57 Urine Ketones Neg mg/dL (Negative) 05/30/18 07:57 Urine Blood Neg (Negative) 05/30/18 07:57 Urine Nitrite Neg (Negative) 05/30/18 07:57 Urine Bilirubin Neg (Negative) 05/30/18 07:57 Urine Urobilinogen 2.0 mg/dL (<2.0) 05/30/18 07:57 Ur Leukocyte Esterase Mod (Negative) 05/30/18 07:57 Urine WBC (Auto) 7.0 /HPF (0.0-6.0) H 05/30/18 07:57 Urine RBC (Auto) 2.0 /HPF (0.0-6.0) 05/30/18 07:57 U Epithel Cells (Auto) 1.0 /HPF (0-13.0) 05/30/18 07:57 Urine Bacteria (Auto) 1+ /HPF (Negative) 05/30/18 07:57 Hyaline Casts 29 /LPF 05/30/18 07:57 Urine Mucus Few /HPF 05/30/18 07:57 Urine Opiates Screen Presumptive negative 05/30/18 07:57 Urine Methadone Screen Presumptive negative 05/30/18 07:57 Ur Barbiturates Screen Presumptive negative 05/30/18 07:57 Ur Phencyclidine Scrn Presumptive negative 05/30/18 07:57 Ur Amphetamines Screen Presumptive negative 05/30/18 07:57 U Benzodiazepines Scrn Presumptive negative 05/30/18 07:57 Urine Cocaine Screen Presumptive negative 05/30/18 07:57 U Marijuana (THC) Screen Presumptive negative 05/30/18 07:57 Drugs of Abuse Note Disclamer 05/30/18 07:57 Plasma/Serum Alcohol < 0.01 % (0-0.07) 05/30/18 06:26 Active Medications - Current Medications Current Medications: Generic Name Dose Route Start Last Admin Trade Name Freq PRN Reason Stop Dose Admin Acetaminophen 650 mg 05/30/18 12:16 06/01/18 09:24 Tylenol PO 650 mg Q4H PRN Administration Pain MILD(1-3)/Fever >100.5/AMOR Albuterol 2.5 mg 05/30/18 12:16 Proventil IH Q4HRT PRN Shortness Of Breath Albuterol/Ipratropium 1 ampul 05/30/18 14:00 06/09/18 09:18 Duoneb *Not For Prn Use* IH 1 ampul Q6HRT ANGELES Administration Amlodipine Besylate 10 mg 05/31/18 15:00 06/09/18 09:14 Norvasc PO 10 mg QDAY ANGELES Administration Aspirin 81 mg 05/31/18 11:00 06/09/18 09:15 Halfprin Ec PO 81 mg QDAY ANGELES Administration Atorvastatin Calcium 20 mg 06/01/18 22:00 06/08/18 21:17 Lipitor PO 20 mg QHS ANGELES Administration Buspirone HCl 7.5 mg 06/01/18 15:00 06/09/18 09:15 Buspar PO 7.5 mg BID ANGELES Administration Cyclobenzaprine HCl 10 mg 06/08/18 16:50 06/09/18 09:33 Flexeril PO 10 mg Q8H PRN Administration Muscle Spasm Duloxetine HCl 60 mg 06/01/18 10:00 06/09/18 09:14 Cymbalta PO 60 mg QDAY ANGELES Administration Enoxaparin Sodium 40 mg 05/30/18 22:00 06/08/18 21:18 Lovenox SUB-Q 40 mg QDAY@2200 ANGELES Administration Furosemide 40 mg 05/31/18 15:00 06/09/18 09:14 Lasix PO 40 mg QDAY ANGELES Administration Guaifenesin 200 mg 06/04/18 20:00 06/09/18 09:13 Robitussin PO 200 mg Q4HR ANGELES Administration Hydroxyzine HCl 25 mg 06/04/18 07:22 06/08/18 15:46 Atarax PO 25 mg Q6H PRN Administration Anxiety Losartan Potassium 50 mg 05/31/18 15:00 06/09/18 09:15 Cozaar PO 50 mg QDAY ANGELES Administration Metoprolol Tartrate 50 mg 06/05/18 14:00 06/09/18 08:12 Lopressor PO 50 mg TID ANGELES Administration Ondansetron HCl 4 mg 05/30/18 12:16 06/09/18 08:17 Zofran IV 4 mg Q8H PRN Administration Nausea And Vomiting Oxycodone HCl 15 mg 06/05/18 09:29 06/09/18 08:16 Roxicodone PO 15 mg Q6H PRN Administration Pain, Moderate (4-6) Prednisone 30 mg 06/06/18 15:00 06/09/18 09:14 Deltasone PO 30 mg QDAY ANGELES Administration Sodium Chloride 10 ml 05/30/18 22:00 06/09/18 09:16 Sodium Chloride Flush Syringe 10 Ml IV 10 ml BID ANGELES Administration Sodium Chloride 10 ml 05/30/18 12:16 06/09/18 08:18 Sodium Chloride Flush Syringe 10 Ml IV 10 ml PRN PRN Administration LINE FLUSH Trazodone HCl 100 mg 05/31/18 22:00 06/08/18 21:17 Desyrel PO 100 mg HS ANGELES Administration Nutrition/Malnutrition Assess - Dietary Evaluation Nutrition/Malnutrition Findings: Nutrition Notes Start: 06/05/18 10:01 Freq: Status: Active Protocol: Document 06/05/18 10:01 PAT (Rec: 06/05/18 10:04 PAT [id number]) Nutrition Notes Need for Assessment generated from: LOS Initial or Follow up Brief Note Current Diet Cardiac Height 5 ft 5 in Weight 81.7 kg [place] Body Weight (kg) 56.81 BMI 29.9 Subjective/Other Information Pt screened for LOS. She has consumed 97% of meals since admission, which meets >75% estimated energy and pro needs . Is patient on ventilator? No Is Patient Ambulatory and/or Out of Bed Yes REE-([facility]-ambulatory/OOB) [ 1745.744 [id number]] Additional Notes Pro needs 1-1.2g/kg adjBW: 69- 83g/day Fluid needs 1ml/kcal Nutrition Intervention Revisit per MD consult or patient Sign Off request:
--- NOTE | 2018-06-09 12:37 | Discharge Summary ---
Providers - Providers Date of Admission: 05/30/18 10:01 Attending physician: LITZY MAO MD 05/30/18 12:16 Consult to Physician [CONS] Routine Comment: spoke to jonny montelongo/[place] Consulting Provider: JAN WHITTEN Physician Instructions: Reason For Exam: cp 05/31/18 10:55 psychiatry consult [Consult to Mental Health] [CONS] Routine Reason For Exam: depression, anxiety d/o Place consult to:: yes Notified:: office Phone number called:: [phone] Was contact made?: Yes Time called:: 09:27 Comment:: tawana 06/01/18 18:01 Physical Therapy Evaluation and Treat [CONS] Routine Comment: Reason For Exam: weakness 06/03/18 13:23 Consult to Physician [CONS] Routine Comment: Consulting Provider: MARK HAAS Physician Instructions: Reason For Exam: COPD exacerbation Primary care physician: [facility], [place] Hospitalization Reason for admission: shortness of breath Condition: Stable Hospital course: 67-year-old female who presents to the emergency department with significant past medical history of moderate to severe pulmonary hypertension, chronic respiratory failure, COPD, hypertension, hyperlipidemia, benzodiazepine and opioid dependence and rheumatoid arthritis complaining of chest pain. The patient was recently admitted here and discharged on 05/27/18 with complaints of chest pain at that time. The patient underwent studies including CT scan that was negative for PE and Lexiscan that was negative for ischemia. Patient was also seen by cardiology in consultation. Patient presents to the ER with similar complaints now associated with hypercapnic respiratory failure (PCO2 52). Patient denies any fever or chills. No cough or cold symptoms. No headache or visual disturbances. No nausea, vomiting or diarrhea (1) Atypical chest pain secondary to costochondritis [place] to be musculoskeletal improved with flexeril Recent stress test and CT chest negative. (2) COPD exacerbation Current Visit: Yes Status: Acute Plan to address problem: Patient with COPD exacerbation. Patient had dyspnea cough. Also had what appeared to be possible benzo withdrawal. Patient very hyper anxious. Although I think a small dose of benzo may help with dyspnea we'll continue to discontinue benzo and added Flexeril. 4 patient is muscle relaxants and pain. Continue nebulizes steroids and empiric antibiotics. He improved (3) Chronic narcotic dependence Current Visit: Yes Status: Acute Plan to address problem: Continue oxycodone chronic narcotic dependence. Extensive counselling provided, he verbalized understanding (4) CHF (congestive heart failure) Current Visit: No Status: Acute Plan to address problem: Patient ejection fraction 45% very well compensated at this particular time. (5) Pulmonary hypertension; pulmonary following. 6) Major depression and anxiety; BuSpar Cymbalta and hydroxyzine. 7) Paroxysmal atrial tachycardia; controlled, cardiology is following 8) Hypertension; continue antihypertensives 9) Chronic pain; continue oxycodone Disposition; patient is cleared by pulmonary and me for discharge. Patient appealed her discharge and her discharge was upheld the following day. Disposition: [id number] HOME UND[facility] Time spent for discharge: 35 mins Core Measure Documentation - Palliative Care Palliative Care/ Comfort Measures: Not Applicable - Core Measures Any of the following diagnoses?: none Exam - Physical Exam Narrative exam: General appearance: Present: no acute distress, well-nourished, - EENT Eyes: Present: PERRL, EOM intact - Neck Neck: Present: supple, normal ROM - Respiratory Respiratory effort: other Respiratory: bilateral: diminished - Cardiovascular Rhythm: S1,S2 Regular - Extremities Extremities: pulses intact, pulses symmetrical, No edema, normal temperature, normal color, Full ROM Extremity abnormal: Peripheral Pulses: within normal limits - Abdominal General gastrointestinal: soft, non-tender, non-distended - Integumentary Integumentary: Present: clear, warm, dry - Psychiatric Psychiatric: appropriate mood/affect, intact judgment & insight - Neurologic Neurologic: CNII-XII intact, no focal deficits, moves all extremities - Constitutional Vitals: Temp Pulse Resp BP Pulse Ox 98.2 F 73 20 140/67 100 06/09/18 07:22 06/09/18 10:00 06/09/18 10:00 06/09/18 09:15 06/09/18 09:18 Plan Activity: advance as tolerated, fall precautions Diet: low fat Special Instructions: record daily BP diary Follow up with: HARPREET DUMAS MD [Primary Care Provider] - 3-5 Days Prescriptions: Aspirin EC [Aspirin Enteric Coated TAB] 81 mg PO QDAY #30 tablet hydrOXYzine HCL [Atarax] 25 mg PO Q6H PRN #60 tablet PRN Reason: Anxiety busPIRone [Buspar] 7.5 mg PO BID #60 tablet Losartan [Cozaar] 50 mg PO QDAY #30 tablet DULoxetine [Cymbalta] 60 mg PO QDAY #30 capsule predniSONE [Deltasone] 30 mg PO QDAY #5 tab Potassium Chloride [K-Dur] 20 meq PO DAILY #30 tablet Furosemide [Lasix TAB] 40 mg PO QDAY #30 tablet Metoprolol [Lopressor TAB] 50 mg PO TID #90 tablet Amlodipine Besylate [Norvasc] 10 mg PO DAILY #30 tablet ALBUTEROL NEB's [Proventil 0.083% NEBS] 2.5 mg IH Q4HRT PRN #120 nebu PRN Reason: Shortness Of Breath guaiFENesin [Robitussin] 200 mg PO Q4HR #20 oral.liqd Tiotropium [place] [Spiriva Respimat] 1 puff IH DAILY #1 mist.inhal Budesonide/Formoterol Fumarate [Symbicort 160-4.5 Mcg Inhaler] 10.2 gm IH BID #1 hfa.aer.ad Albuterol Sulfate [Ventolin Hfa] 2 puff IH Q4H #1 hfa.aer.ad
--- NOTE | 2018-06-09 13:51 | Progress Note ---
Assessment and Plan Patient awake. Resting on 2 litres o2. O2 saturation 95%.Patient says breathing better.No acute respiratory distress. - Patient Problems (1) Atypical chest pain Current Visit: Yes Status: Acute Plan to address problem: Patient is on Oxycodone. (2) COPD exacerbation Current Visit: Yes Status: Acute Plan to address problem: O2 2 litres via nasal canula. Albuterol/atrovent aerosol treatments q 6 hours. Prednisone 30 mg po qd. Continue S/C Lovenox. (3) Acute respiratory failure Current Visit: No Status: Acute Qualifiers: Respiratory failure complication: hypoxia Qualified Code(s): J96.01 - Acute respiratory failure with hypoxia Plan to address problem: O2 2 litres via nasal canula. Albuterol/atrovent aerosol treatments q 6 hours. Prednisone 30 mg po qd. Continue S/C Lovenox (4) Atelectasis of right lung Current Visit: No Status: Acute Plan to address problem: Deep breathing and coughing. Chest PT qid. Incentive spirometry. (5) Chronic narcotic dependence Current Visit: Yes Status: Acute Plan to address problem: Management as per primary care and psychiatry. Subjective Date of service: 06/09/18 Principal diagnosis: cp Interval history: Patient awake. Resting on 2 litres o2. O2 saturation 95%.Patient says breathing better.No acute respiratory distress. Objective Vital Signs - 12hr 06/09/18 06/09/18 06/09/18 02:17 02:21 07:22 Temperature 97.9 F 98.2 F Pulse Rate 76 73 Pulse Rate [ From Monitor] Pulse Rate [ Posterior Bilateral Throughout] Respiratory 18 Rate Respiratory Rate [Posterior Bilateral Throughout] Blood Pressure 128/61 139/62 Blood Pressure 128/61 [Left] O2 Sat by Pulse 98 Oximetry 06/09/18 06/09/18 06/09/18 08:12 08:16 09:14 Temperature Pulse Rate 73 83 Pulse Rate [ From Monitor] Pulse Rate [ Posterior Bilateral Throughout] Respiratory 20 Rate Respiratory Rate [Posterior Bilateral Throughout] Blood Pressure 139/62 140/67 Blood Pressure [Left] O2 Sat by Pulse Oximetry 06/09/18 06/09/18 06/09/18 09:15 09:18 09:28 Temperature Pulse Rate 83 Pulse Rate [ From Monitor] Pulse Rate [ 87 90 Posterior Bilateral Throughout] Respiratory Rate Respiratory 18 18 Rate [Posterior Bilateral Throughout] Blood Pressure 140/67 Blood Pressure [Left] O2 Sat by Pulse 100 Oximetry 06/09/18 10:00 Temperature Pulse Rate 74 Pulse Rate [ 73 From Monitor] Pulse Rate [ Posterior Bilateral Throughout] Respiratory 20 Rate Respiratory Rate [Posterior Bilateral Throughout] Blood Pressure Blood Pressure [Left] O2 Sat by Pulse Oximetry Constitutional: no acute distress, alert ENT: oropharynx moist Neck: supple, no JVD Ascultation: Bilateral: diminished breath sounds, other (Prolonged expiratory phase.) Cardiovascular: regular rate and rhythm Gastrointestinal: normoactive bowel sounds, soft, non-tender Integumentary: normal Extremities: no cyanosis, no edema Neurologic: normal mental status, non-focal exam, pupils equal and round, CN II- XII normal Psychiatric: anxious CBC and BMP: 06/08/18 04:38 06/08/18 04:38 ABG, PT/INR, D-dimer: ABG POC ABG pH 7.397 (7.35-7.45) 05/30/18 09:01 POC ABG pCO2 51.9 (35-45) H 05/30/18 09:01 POC ABG pO2 110 (80-105) H 05/30/18 09:01 POC ABG HCO3 32.0 (22-26 mml/L) 05/30/18 09:01 POC ABG Total CO2 34 (23-27mmol/L) 05/30/18 09:01 POC ABG O2 Sat 98 05/30/18 09:01 PT/INR, D-dimer PT 12.5 Sec. (12.2-14.9) 05/30/18 06:46 INR 0.88 (0.87-1.13) 05/30/18 06:46 D-Dimer 212.51 ng/mlDDU (0-234) 05/30/18 06:46 Abnormal lab findings: Abnormal Labs 05/30/18 05/30/18 05/30/18 06:26 06:26 06:26 WBC RDW 17.0 H [place] % (Auto) 7.8 H Seg Neutrophils % 74.3 H Seg Neuts % (Manual) Lymphocytes % (Manual) Seg Neutrophils # 7.8 H Seg Neutrophils # Man Lymphocytes # (Manual) POC ABG pCO2 POC ABG pO2 Sodium Chloride Carbon Dioxide BUN 24 H Creatinine 1.3 H Glucose 102 H POC Glucose Magnesium 2.40 H Total Protein 5.9 L Ur Specific [place] Urine WBC (Auto) 05/30/18 05/30/18 05/31/18 07:57 09:01 05:20 WBC RDW 17.3 H [place] % (Auto) Seg Neutrophils % Seg Neuts % (Manual) 95.0 H Lymphocytes % (Manual) 4.0 L Seg Neutrophils # Seg Neutrophils # Man 9.6 H Lymphocytes # (Manual) 0.4 L POC ABG pCO2 51.9 H POC ABG pO2 110 H Sodium Chloride Carbon Dioxide BUN Creatinine Glucose POC Glucose Magnesium Total Protein Ur Specific [place] 1.032 H Urine WBC (Auto) 7.0 H 05/31/18 06/01/18 06/02/18 05:20 23:25 04:52 WBC 18.4 H RDW 17.2 H [place] % (Auto) Seg Neutrophils % Seg Neuts % (Manual) 97.0 H Lymphocytes % (Manual) 2.0 L Seg Neutrophils # Seg Neutrophils # Man 17.8 H Lymphocytes # (Manual) 0.4 L POC ABG pCO2 POC ABG pO2 Sodium Chloride Carbon Dioxide BUN 37 H Creatinine Glucose 153 H POC Glucose 124 H Magnesium Total Protein Ur Specific [place] Urine WBC (Auto) 06/02/18 06/03/18 06/03/18 04:52 05:27 05:27 WBC 13.1 H RDW 17.6 H [place] % (Auto) Seg Neutrophils % Seg Neuts % (Manual) 96.0 H Lymphocytes % (Manual) 3.0 L Seg Neutrophils # Seg Neutrophils # Man 12.6 H Lymphocytes # (Manual) 0.4 L POC ABG pCO2 POC ABG pO2 Sodium Chloride 97.0 L Carbon Dioxide BUN 35 H 38 H Creatinine Glucose 134 H 152 H POC Glucose Magnesium Total Protein Ur Specific [place] Urine WBC (Auto) 06/08/18 06/08/18 04:38 04:38 WBC 11.9 H RDW 17.6 H [place] % (Auto) Seg Neutrophils % Seg Neuts % (Manual) 80.0 H Lymphocytes % (Manual) 13.0 L Seg Neutrophils # Seg Neutrophils # Man 9.5 H Lymphocytes # (Manual) POC ABG pCO2 POC ABG pO2 Sodium 147 H D Chloride Carbon Dioxide 31 H BUN 34 H Creatinine Glucose 126 H POC Glucose Magnesium Total Protein Ur Specific [place] Urine WBC (Auto)
[2018-06-09] MEDS: LOVENOX SUB-Q SCH (21:34)
[2018-06-09] MEDS: DESYREL PO SCH (21:35)
--- NOTE | 2018-06-09 22:17 | Progress Note ---
Assessment and Plan Assessment and plan: Patient Problems (1) Atypical chest pain Current Visit: Yes Status: Acute Plan to address problem: Resolved most likely secondary to coughing. Monson to be musculoskeletal improved with flexeril Recent stress test and CT chest negative. (2) COPD exacerbation Current Visit: Yes Status: Acute Plan to address problem: Patient with COPD exacerbation. Patient had dyspnea cough. Also had what appeared to be possible benzo withdrawal. Patient very hyper anxious. Although I think a small dose of benzo may help with dyspnea we'll continue to discontinue benzo and added Flexeril. 4 patient is muscle relaxants and pain. Continue nebulizes steroids and empiric antibiotics. (3) Chronic narcotic dependence Current Visit: Yes Status: Acute Plan to address problem: Continue oxycodone chronic narcotic dependence. (4) CHF (congestive heart failure) Current Visit: No Status: Acute Plan to address problem: Patient ejection fraction 45% very well compensated at this particular time. (5) Pulmonary hypertension; pulmonary following. 6) Major depression and anxiety; BuSpar Cymbalta and hydroxyzine. 7) Paroxysmal atrial tachycardia; controlled, cardiology is following 8) Hypertension; continue antihypertensives 9) Chronic pain; continue oxycodone 10) Rheumatoid arthritis. Continue current medications. will follow with patent engineer as an O/P. DVT prophylaxis; Lovenox Disposition; patient is cleared by pulmonary and me for discharge. Patient appealed her discharge. History Interval history: Patient seen and examined, resting comfortably. No new complaints. awaiting for her Appeal, although she informs me she is much better, she will rather leave in AM Hospitalist Physical - Physical exam Narrative exam: General appearance: Present: no acute distress, well-nourished, - EENT Eyes: Present: PERRL, EOM intact - Neck Neck: Present: supple, normal ROM - Respiratory Respiratory effort: other Respiratory: bilateral: diminished - Cardiovascular Rhythm: S1,S2 Regular - Extremities Extremities: pulses intact, pulses symmetrical, No edema, normal temperature, normal color, Full ROM Extremity abnormal: Peripheral Pulses: within normal limits - Abdominal General gastrointestinal: soft, non-tender, non-distended - Integumentary Integumentary: Present: clear, warm, dry - Psychiatric Psychiatric: appropriate mood/affect, intact judgment & insight - Neurologic Neurologic: CNII-XII intact, no focal deficits, moves all extremities - Constitutional Vitals: Temp Pulse Resp BP Pulse Ox 98.6 F 81 20 128/72 83 L 06/09/18 19:48 06/09/18 21:58 06/09/18 21:56 06/09/18 21:34 06/09/18 21:38 General appearance: Present: no acute distress, well-nourished, other (anterior wheezing) Results - Labs CBC & Chem 7: 06/08/18 04:38 06/08/18 04:38 Labs: Laboratory Last Values WBC 11.9 K/mm3 (4.5-11.0) H 06/08/18 04:38 RBC 3.70 M/mm3 (3.65-5.03) 06/08/18 04:38 Hgb 11.0 gm/dl (10.1-14.3) 06/08/18 04:38 Hct 34.1 % (30.3-42.9) 06/08/18 04:38 MCV 92 fl (79-97) 06/08/18 04:38 MCH 30 pg (28-32) 06/08/18 04:38 MCHC 32 % (30-34) 06/08/18 04:38 RDW 17.6 % (13.2-15.2) H 06/08/18 04:38 Plt Count 202 K/mm3 (140-440) 06/08/18 04:38 Lymph % (Auto) 16.7 % (13.4-35.0) 05/30/18 06:26 [place] % (Auto) 7.8 % (0.0-7.3) H 05/30/18 06:26 Eos % (Auto) 0.9 % (0.0-4.3) 05/30/18 06:26 Baso % (Auto) 0.3 % (0.0-1.8) 05/30/18 06:26 Lymph # 1.8 K/mm3 (1.2-5.4) 05/30/18 06:26 [place] # 0.8 K/mm3 (0.0-0.8) 05/30/18 06:26 Eos # 0.1 K/mm3 (0.0-0.4) 05/30/18 06:26 Baso # 0.0 K/mm3 (0.0-0.1) 05/30/18 06:26 Add Manual Diff Complete 06/08/18 04:38 Total Counted 100 06/08/18 04:38 Seg Neutrophils % Manager Of International 06/03/18 05:27 Seg Neuts % (Manual) 80.0 % (40.0-70.0) H 06/08/18 04:38 Band Neutrophils % 2.0 % 06/08/18 04:38 Lymphocytes % (Manual) 13.0 % (13.4-35.0) L 06/08/18 04:38 Reactive Lymphs % (Man) 0 % 06/08/18 04:38 Monocytes % (Manual) 4.0 % (0.0-7.3) 06/08/18 04:38 Eosinophils % (Manual) 1.0 % (0.0-4.3) 06/08/18 04:38 Basophils % (Manual) 0 % (0.0-1.8) 06/08/18 04:38 Metamyelocytes % 0 % 06/08/18 04:38 Myelocytes % 0 % 06/08/18 04:38 Promyelocytes % 0 % 06/08/18 04:38 Blast Cells % 0 % 06/08/18 04:38 Nucleated RBC % Not Reportable 06/08/18 04:38 Seg Neutrophils # 7.8 K/mm3 (1.8-7.7) H 05/30/18 06:26 Seg Neutrophils # Man 9.5 K/mm3 (1.8-7.7) H 06/08/18 04:38 Band Neutrophils # 0.2 K/mm3 06/08/18 04:38 Lymphocytes # (Manual) 1.5 K/mm3 (1.2-5.4) 06/08/18 04:38 Abs React Lymphs (Man) 0.0 K/mm3 06/08/18 04:38 Monocytes # (Manual) 0.5 K/mm3 (0.0-0.8) 06/08/18 04:38 Eosinophils # (Manual) 0.1 K/mm3 (0.0-0.4) 06/08/18 04:38 Basophils # (Manual) 0.0 K/mm3 (0.0-0.1) 06/08/18 04:38 Metamyelocytes # 0.0 K/mm3 06/08/18 04:38 Myelocytes # 0.0 K/mm3 06/08/18 04:38 Promyelocytes # 0.0 K/mm3 06/08/18 04:38 Blast Cells # 0.0 K/mm3 06/08/18 04:38 WBC Morphology Not Reportable 06/08/18 04:38 Hypersegmented Neuts Not Reportable 06/08/18 04:38 Hyposegmented Neuts Not Reportable 06/08/18 04:38 Hypogranular Neuts Not Reportable 06/08/18 04:38 Smudge Cells Not Reportable 06/08/18 04:38 Toxic Granulation Not Reportable 06/08/18 04:38 Toxic Vacuolation Not Reportable 06/08/18 04:38 Dohle Bodies Not Reportable 06/08/18 04:38 Pelger-Huet Anomaly Not Reportable 06/08/18 04:38 Ashlee Rods Not Reportable 06/08/18 04:38 Platelet Estimate Consistent w auto 06/08/18 04:38 Clumped Platelets Not Reportable 06/08/18 04:38 Plt Clumps, EDTA Not Reportable 06/08/18 04:38 Large Platelets Not Reportable 06/08/18 04:38 Giant Platelets Not Reportable 06/08/18 04:38 Platelet Satelliting Not Reportable 06/08/18 04:38 Plt Morphology Comment Not Reportable 06/08/18 04:38 RBC Morphology Not Reportable 06/08/18 04:38 Dimorphic RBCs Not Reportable 06/08/18 04:38 Polychromasia Not Reportable 06/08/18 04:38 Hypochromasia Not Reportable 06/08/18 04:38 Poikilocytosis 1+ 06/08/18 04:38 Anisocytosis 1+ 06/08/18 04:38 Microcytosis Not Reportable 06/08/18 04:38 Macrocytosis Not Reportable 06/08/18 04:38 Spherocytes Not Reportable 06/08/18 04:38 Pappenheimer Bodies Not Reportable 06/08/18 04:38 Sickle Cells Not Reportable 06/08/18 04:38 Target Cells Not Reportable 06/08/18 04:38 Tear Drop Cells Not Reportable 06/08/18 04:38 Ovalocytes Not Reportable 06/08/18 04:38 Helmet Cells Not Reportable 06/08/18 04:38 Panda-[place]ushka Bodies Not Reportable 06/08/18 04:38 [place] Rings Not Reportable 06/08/18 04:38 Taylor Cells Not Reportable 06/08/18 04:38 Bite Cells Not Reportable 06/08/18 04:38 Crenated Cell Not Reportable 06/08/18 04:38 Elliptocytes Not Reportable 06/08/18 04:38 Acanthocytes (Spur) Not Reportable 06/08/18 04:38 Rouleaux Not Reportable 06/08/18 04:38 Hemoglobin C Crystals Not Reportable 06/08/18 04:38 Schistocytes Not Reportable 06/08/18 04:38 Malaria parasites Not Reportable 06/08/18 04:38 Darin Bodies Not Reportable 06/08/18 04:38 Hem Pathologist Commnt No 06/08/18 04:38 PT 12.5 Sec. (12.2-14.9) 05/30/18 06:46 INR 0.88 (0.87-1.13) 05/30/18 06:46 APTT 25.2 Sec. (24.2-36.6) 05/30/18 06:46 D-Dimer 212.51 ng/mlDDU (0-234) 05/30/18 06:46 POC ABG pH 7.397 (7.35-7.45) 05/30/18 09:01 POC ABG pCO2 51.9 (35-45) H 05/30/18 09:01 POC ABG pO2 110 (80-105) H 05/30/18 09:01 POC ABG HCO3 32.0 (22-26 mml/L) 05/30/18 09:01 POC ABG Total CO2 34 (23-27mmol/L) 05/30/18 09:01 POC ABG O2 Sat 98 05/30/18 09:01 POC ABG Base Excess 7 ((-2) - (+3)mmol/L) 05/30/18 09:01 FiO2 28 % 05/30/18 09:01 Sodium 147 mmol/L (137-145) H D 06/08/18 04:38 Potassium 3.9 mmol/L (3.6-5.0) 06/08/18 04:38 Chloride 103.8 mmol/L (98-107) 06/08/18 04:38 Carbon Dioxide 31 mmol/L (22-30) H 06/08/18 04:38 Anion Gap 16 mmol/L 06/08/18 04:38 BUN 34 mg/dL (7-17) H 06/08/18 04:38 Creatinine 0.9 mg/dL (0.7-1.2) 06/08/18 04:38 Estimated GFR > 60 ml/min 06/08/18 04:38 BUN/Creatinine Ratio 38 % 06/08/18 04:38 Glucose 126 mg/dL (65-100) H 06/08/18 04:38 POC Glucose 124 (70-105) H 06/01/18 23:25 Lactic Acid 0.90 mmol/L (0.7-2.0) 05/30/18 08:34 Calcium 8.4 mg/dL (8.4-10.2) 06/08/18 04:38 Magnesium 2.40 mg/dL (1.7-2.3) H 05/30/18 06:26 Total Bilirubin 0.30 mg/dL (0.1-1.2) 05/30/18 06:26 Direct Bilirubin < 0.2 mg/dL (0-0.2) 05/30/18 06:26 Indirect Bilirubin 0.1 mg/dL 05/30/18 06:26 AST 13 units/L (5-40) 05/30/18 06:26 ALT 9 units/L (7-56) 05/30/18 06:26 Alkaline Phosphatase 60 units/L (35-129) 05/30/18 06:26 Total Creatine Kinase 104 units/L (30-135) 05/30/18 06:26 CK-MB (CK-2) 2.3 ng/mL (0.0-4.0) 05/30/18 06:26 CK-MB (CK-2) Rel Index 2.2 (0-4) 05/30/18 06:26 Troponin T < 0.010 ng/mL (0.00-0.029) 06/01/18 11:43 NT-Pro-B Natriuret Pep 315.0 pg/mL (0-900) 05/30/18 06:46 Total Protein 5.9 g/dL (6.3-8.2) L 05/30/18 06:26 Albumin 4.2 g/dL (3.9-5) 05/30/18 06:26 Albumin/Globulin Ratio 2.5 % 05/30/18 06:26 TSH 1.470 mlU/mL (0.270-4.200) 05/30/18 06:26 Urine Color Yellow (Yellow) 05/30/18 07:57 Urine Turbidity Clear (Clear) 05/30/18 07:57 Urine pH 5.0 (5.0-7.0) 05/30/18 07:57 Ur Specific [place] 1.032 (1.003-1.030) H 05/30/18 07:57 Urine Protein 30 mg/dl mg/dL (Negative) 05/30/18 07:57 Urine Glucose (UA) Neg mg/dL (Negative) 05/30/18 07:57 Urine Ketones Neg mg/dL (Negative) 05/30/18 07:57 Urine Blood Neg (Negative) 05/30/18 07:57 Urine Nitrite Neg (Negative) 05/30/18 07:57 Urine Bilirubin Neg (Negative) 05/30/18 07:57 Urine Urobilinogen 2.0 mg/dL (<2.0) 05/30/18 07:57 Ur Leukocyte Esterase Mod (Negative) 05/30/18 07:57 Urine WBC (Auto) 7.0 /HPF (0.0-6.0) H 05/30/18 07:57 Urine RBC (Auto) 2.0 /HPF (0.0-6.0) 05/30/18 07:57 U Epithel Cells (Auto) 1.0 /HPF (0-13.0) 05/30/18 07:57 Urine Bacteria (Auto) 1+ /HPF (Negative) 05/30/18 07:57 Hyaline Casts 29 /LPF 05/30/18 07:57 Urine Mucus Few /HPF 05/30/18 07:57 Urine Opiates Screen Presumptive negative 05/30/18 07:57 Urine Methadone Screen Presumptive negative 05/30/18 07:57 Ur Barbiturates Screen Presumptive negative 05/30/18 07:57 Ur Phencyclidine Scrn Presumptive negative 05/30/18 07:57 Ur Amphetamines Screen Presumptive negative 05/30/18 07:57 U Benzodiazepines Scrn Presumptive negative 05/30/18 07:57 Urine Cocaine Screen Presumptive negative 05/30/18 07:57 U Marijuana (THC) Screen Presumptive negative 05/30/18 07:57 Drugs of Abuse Note Disclamer 05/30/18 07:57 Plasma/Serum Alcohol < 0.01 % (0-0.07) 05/30/18 06:26 Active Medications - Current Medications Current Medications: Generic Name Dose Route Start Last Admin Trade Name Freq PRN Reason Stop Dose Admin Acetaminophen 650 mg 05/30/18 12:16 06/01/18 09:24 Tylenol PO 650 mg Q4H PRN Administration Pain MILD(1-3)/Fever >100.5/AMOR Albuterol 2.5 mg 05/30/18 12:16 Proventil IH Q4HRT PRN Shortness Of Breath Albuterol/Ipratropium 1 ampul 05/30/18 14:00 06/09/18 21:37 Duoneb *Not For Prn Use* IH 1 ampul Q6HRT ANGELES Administration Amlodipine Besylate 10 mg 05/31/18 15:00 06/09/18 09:14 Norvasc PO 10 mg QDAY ANGELES Administration Aspirin 81 mg 05/31/18 11:00 06/09/18 09:15 Halfprin Ec PO 81 mg QDAY ANGELES Administration Atorvastatin Calcium 20 mg 06/01/18 22:00 06/09/18 21:32 Lipitor PO 20 mg QHS ANGELES Administration Buspirone HCl 7.5 mg 06/01/18 15:00 06/09/18 21:33 Buspar PO 7.5 mg BID ANGELES Administration Cyclobenzaprine HCl 10 mg 06/08/18 16:50 06/09/18 21:34 Flexeril PO 10 mg Q8H PRN Administration Muscle Spasm Duloxetine HCl 60 mg 06/01/18 10:00 06/09/18 09:14 Cymbalta PO 60 mg QDAY ANGELES Administration Enoxaparin Sodium 40 mg 05/30/18 22:00 06/09/18 21:34 Lovenox SUB-Q 40 mg QDAY@2200 ANGELES Administration Furosemide 40 mg 05/31/18 15:00 06/09/18 09:14 Lasix PO 40 mg QDAY ANGELES Administration Guaifenesin 200 mg 06/04/18 20:00 06/09/18 21:34 Robitussin PO 200 mg Q4HR ANGELES Administration Hydroxyzine HCl 25 mg 06/04/18 07:22 06/08/18 15:46 Atarax PO 25 mg Q6H PRN Administration Anxiety Losartan Potassium 50 mg 05/31/18 15:00 06/09/18 09:15 Cozaar PO 50 mg QDAY ANGELES Administration Metoprolol Tartrate 50 mg 06/05/18 14:00 06/09/18 21:34 Lopressor PO 50 mg TID ANGELES Administration Ondansetron HCl 4 mg 05/30/18 12:16 06/09/18 08:17 Zofran IV 4 mg Q8H PRN Administration Nausea And Vomiting Oxycodone HCl 15 mg 06/05/18 09:29 06/09/18 21:32 Roxicodone PO 15 mg Q6H PRN Administration Pain, Moderate (4-6) Prednisone 30 mg 06/06/18 15:00 06/09/18 09:14 Deltasone PO 30 mg QDAY ANGELES Administration Sodium Chloride 10 ml 05/30/18 22:00 06/09/18 21:35 Sodium Chloride Flush Syringe 10 Ml IV 10 ml BID ANGELES Administration Sodium Chloride 10 ml 05/30/18 12:16 06/09/18 08:18 Sodium Chloride Flush Syringe 10 Ml IV 10 ml PRN PRN Administration LINE FLUSH Trazodone HCl 100 mg 05/31/18 22:00 06/09/18 21:35 Desyrel PO 100 mg HS ANGELES Administration Nutrition/Malnutrition Assess - Dietary Evaluation Nutrition/Malnutrition Findings: Nutrition Notes Start: 06/05/18 10:01 Freq: Status: Active Protocol: Document 06/05/18 10:01 PAT (Rec: 06/05/18 10:04 PAT [id number]) Nutrition Notes Need for Assessment generated from: LOS Initial or Follow up Brief Note Current Diet Cardiac Height 5 ft 5 in Weight 81.7 kg [place] Body Weight (kg) 56.81 BMI 29.9 Subjective/Other Information Pt screened for LOS. She has consumed 97% of meals since admission, which meets >75% estimated energy and pro needs . Is patient on ventilator? No Is Patient Ambulatory and/or Out of Bed Yes REE-([place]. or-ambulatory/OOB) [ 8895.744 NUTR.[id number]] Additional Notes Pro needs 1-1.2g/kg adjBW: 69- 83g/day Fluid needs 1ml/kcal Nutrition Intervention Revisit per MD consult or patient Sign Off request:
[2018-06-10] MEDS: ROBITUSSIN PO SCH ×3 (02:00→09:17)
[2018-06-10] MEDS: DUONEB *Not for PRN Use IH SCH ×2 (02:20→08:27)
[2018-06-10] MEDS: ROXICODONE PO PRN (05:13)
[2018-06-10] MEDS: LOPRESSOR PO SCH (08:32)
[2018-06-10] MEDS: DELTASONE PO SCH (09:17)
[2018-06-10] MEDS: COZAAR PO SCH (09:17)
[2018-06-10] MEDS: CYMBALTA PO SCH (09:17)
[2018-06-10] MEDS: HALFPRIN EC PO SCH (09:17)
[2018-06-10] MEDS: LASIX PO SCH (09:18)
[2018-06-10] MEDS: NORVASC PO SCH (09:18)
[2018-06-10] MEDS: SODIUM CHLORIDE FLUSH SYRINGE 10 ML IV SCH (09:18)
[2018-06-10] MEDS: BUSPAR PO SCH (09:18)
[2018-06-10] MEDS: FLEXERIL PO PRN (10:07)
[2018-06-10 11:48] VITALS: BP 128/72
== END 2018-06-10 11:50 | disposition home health service (06) | DRG 189 ==
LOC: ED 04:29 → 2B-ACE 10:01
PROVIDERS: ADMIT Hospitalist; ATTEND Internal Medicine
PROC: 4A033R1 Measurement of Arterial Saturation, Peripheral, Percutaneous Approach (ICD-10-PCS; principal; 2018-05-30)
DX: J96.21 Acute and chronic respiratory failure with hypoxia (principal); J44.1 Chronic obstructive pulmonary disease with (acute) exacerbation; F11.20 Opioid dependence, uncomplicated; I50.22 Chronic systolic (congestive) heart failure; F13.239 Sedative, hypnotic or anxiolytic dependence with withdrawal, unspecified; I47.1 Supraventricular tachycardia; E87.2 Acidosis; J98.11 Atelectasis; N17.9 Acute kidney failure, unspecified; M06.9 Rheumatoid arthritis, unspecified; J96.22 Acute and chronic respiratory failure with hypercapnia; R07.89 Other chest pain; I11.0 Hypertensive heart disease with heart failure; I27.20 Pulmonary hypertension, unspecified; F17.200 Nicotine dependence, unspecified, uncomplicated; F32.9 Major depressive disorder, single episode, unspecified; F41.9 Anxiety disorder, unspecified; R73.9 Hyperglycemia, unspecified; G89.4 Chronic pain syndrome; M54.5 Low back pain; K21.9 Gastro-esophageal reflux disease without esophagitis; M19.90 Unspecified osteoarthritis, unspecified site; D72.829 Elevated white blood cell count, unspecified; T14.8XXA Other injury of unspecified body region, initial encounter; Y93.89 Activity, other specified; Z99.81 Dependence on supplemental oxygen; Z79.899 Other long term (current) drug therapy; Y92.89 Other specified places as the place of occurrence of the external cause; Y99.8 Other external cause status
CPT/HCPCS: 36415; 71045; 80048; 80076; 80307; 80320; 81001; 82140; 82550; 82553; 82803; 82962; 83735; 83880; 84443; 84484; 85007; 85025; 85379; 85610; 85730; 87116; 93005; 93010; 94640; 94760; 96361; 96365; 96375; G0378; A9270-GY; G0480; J1650; J2060; J2405; J2920; J2930; J3475; J7030; J7512; Q0177

== ENCOUNTER 2018-06-30 17:47 | Inpatient (IN) | payer MEDICARE ==
[2018-06-30] MEDS ORDERED: ASPIRIN PO ONE (18:22)
--- NOTE | 2018-06-30 19:10 | Emergency Department Report ---
HPI - General Chief Complaint: Dyspnea/Respdistress Time Seen by Provider: 06/30/18 18:29 - HPI HPI: Room 20 The patient is a 68-year-old female presenting with a chief complaint of shortness of breath. The patient states she has had progressive shortness of breath for the past week. Patient admits to dyspnea on exertion and a subjective fever. Patient states she's had a cough for 1 week productive of no sputum. Patient states she will use her nebulizer at home but it only helped temporarily. The patient states family convinced her to come to the emergency department for further evaluation. The patient states her left lower extremity has been swelling for the past couple of days. The patient states today before coming to the hospital she fell backwards while trying to put on her shoe injuring her right hip Location: Lungs Duration: One week Quality: Shortness of breath Severity: Moderate Modifying factors: [see above] Context: [see above] Mode of transportation: [not driving] ED Past Medical Hx - Past Medical History Previous Medical History?: Yes Hx Hypertension: Yes Hx Congestive Heart Failure: Yes Hx GERD: Yes Hx Arthritis: Yes Hx COPD: Yes Additional medical history: chronic back pain - Surgical History Past Surgical History?: Yes Additional Surgical History: hernia repair and lower back/ cycst removal - Family History Family history: no significant - Social History Smoking Status: Former Smoker (none 4 years) Substance Use Type: None (denies illicit drug use) - Medications Home Medications: Home Medications Medication Instructions Recorded Confirmed Last Taken Type LORazepam [Ativan] 0.5 mg PO BID #20 tablet 05/26/18 05/30/18 1 Day Ago Rx ~05/29/18 ALBUTEROL NEB's [Proventil 0.083% 2.5 mg IH Q4HRT PRN #120 nebu 06/05/18 Unknown Rx NEBS] Albuterol Sulfate [Ventolin Hfa] 2 puff IH Q4H #1 hfa.aer.ad 06/05/18 Unknown Rx Amlodipine Besylate [Norvasc] 10 mg PO DAILY #30 tablet 06/05/18 Unknown Rx Aspirin EC [Aspirin Enteric Coated 81 mg PO QDAY #30 tablet 06/05/18 Unknown Rx TAB] Budesonide/Formoterol Fumarate 10.2 gm IH BID #1 hfa.aer.ad 06/05/18 Unknown Rx [Symbicort 160-4.5 Mcg Inhaler] DULoxetine [Cymbalta] 60 mg PO QDAY #30 capsule 06/05/18 Unknown Rx Furosemide [Lasix TAB] 40 mg PO QDAY #30 tablet 06/05/18 Unknown Rx Losartan [Cozaar] 50 mg PO QDAY #30 tablet 06/05/18 Unknown Rx Metoprolol [Lopressor TAB] 50 mg PO TID #90 tablet 06/05/18 Unknown Rx Potassium Chloride [K-Dur] 20 meq PO DAILY #30 tablet 06/05/18 Unknown Rx Tiotropium [place] [Spiriva 1 puff IH DAILY #1 mist.inhal 06/05/18 Unknown Rx Respimat] busPIRone [Buspar] 7.5 mg PO BID #60 tablet 06/05/18 Unknown Rx guaiFENesin [Robitussin] 200 mg PO Q4HR #20 oral.liqd 06/05/18 Unknown Rx hydrOXYzine HCL [Atarax] 25 mg PO Q6H PRN #60 tablet 06/05/18 Unknown Rx predniSONE [Deltasone] 30 mg PO QDAY #5 tab 06/09/18 Unknown Rx ED Review of Systems ROS: Stated complaint: ENA Other details as noted in HPI Constitutional: fever (subjective) Eyes: denies: eye pain ENT: denies: throat pain Respiratory: cough, shortness of breath Cardiovascular: denies: chest pain Endocrine: no symptoms reported Gastrointestinal: denies: abdominal pain Genitourinary: denies: dysuria Musculoskeletal: arthralgia Neurological: denies: headache Physical Exam - Physical Exam Vital Signs: Vital Signs 06/30/18 06/30/18 18:08 18:16 Temperature 98.1 F Pulse Rate 95 H Respiratory 16 Rate Blood Pressure 131/77 131/77 O2 Sat by Pulse 100 Oximetry Physical Exam: GENERAL: The patient is well-developed well-nourished female lying on stretcher not appear to be in acute distress. [] HEENT: Normocephalic. Atraumatic. Extraocular motions are intact. Patient has moist mucous membranes. NECK: Supple. Trachea midline CHEST/LUNGS: Clear to auscultation. There is mild tachypnea. No wheezing auscultated HEART/CARDIOVASCULAR: Regular. There is tachycardia. There is no gallop rub or murmur. ABDOMEN: Abdomen is soft, nontender. Patient has normal bowel sounds. There is no abdominal distention. SKIN: There is no rash. There is 1+ left lower extremity pitting edema. There is no diaphoresis. NEURO: The patient is awake, alert, and oriented. The patient is cooperative. The patient has normal speech MUSCULOSKELETAL: There is no evidence of acute injury. ED Course Vital Signs 06/30/18 06/30/18 18:08 18:16 Temperature 98.1 F Pulse Rate 95 H Respiratory 16 Rate Blood Pressure 131/77 131/77 O2 Sat by Pulse 100 Oximetry ED Medical Decision Making - Lab Data Result diagrams: 06/30/18 18:49 06/30/18 18:49 Laboratory Tests 06/30/18 06/30/18 06/30/18 18:49 18:49 19:11 WBC 10.2 RBC 3.36 L Hgb 10.5 Hct 30.7 MCV 91 MCH 31 MCHC 34 RDW 17.6 H Plt Count 293 Lymph % (Auto) 8.0 L [place] % (Auto) 7.8 H Eos % (Auto) 0.2 Baso % (Auto) 1.0 Lymph # 0.8 L [place] # 0.8 Eos # 0.0 Baso # 0.1 Seg Neutrophils % 83.0 H Seg Neutrophils # 8.5 H D-Dimer 747.37 H POC ABG pH POC ABG pCO2 POC ABG pO2 POC ABG HCO3 POC ABG Total CO2 POC ABG O2 Sat POC ABG Base Excess FiO2 Sodium 146 H Potassium 3.8 Chloride 102.2 Carbon Dioxide 30 Anion Gap 18 BUN 17 Creatinine 0.8 Estimated GFR > 60 BUN/Creatinine Ratio 21 Glucose 94 Calcium 9.4 Troponin T < 0.010 NT-Pro-B Natriuret Pep 06/30/18 06/30/18 19:11 19:27 WBC RBC Hgb Hct MCV MCH MCHC RDW Plt Count Lymph % (Auto) [place] % (Auto) Eos % (Auto) Baso % (Auto) Lymph # [place] # Eos # Baso # Seg Neutrophils % Seg Neutrophils # D-Dimer POC ABG pH 7.487 H POC ABG pCO2 43.6 POC ABG pO2 104 POC ABG HCO3 33.0 POC ABG Total CO2 34 POC ABG O2 Sat 98 POC ABG Base Excess 10 FiO2 28 Sodium Potassium Chloride Carbon Dioxide Anion Gap BUN Creatinine Estimated GFR BUN/Creatinine Ratio Glucose Calcium Troponin T NT-Pro-B Natriuret Pep 675.4 - EKG Data -: EKG Interpreted by Me EKG shows normal: sinus rhythm Rate: normal - EKG Data When compared to previous EKG there are: previous EKG unavailable Interpretation: other (no ischemic changes seen) - Radiology Data Radiology results: report reviewed (CT chest), image reviewed (chest x-ray, CT chest) interpreted by me: Chest x-ray-no focal infiltrates, no pneumothorax [facility] [address] [place] [address] Cat Scan Report Signed Patient: FARSHAD RIVERA MR#: [id number] : 1950 Acct:[id number] Age/Sex: 68 / F ADM Date: 06/30/18 Loc: ED Attending Dr: Ordering Physician: ARIK MALDONADO MD Date of Service: 06/30/18 Procedure(s): CT angio chest Accession Number(s): [id number] cc: ARIK MALDONADO MD PROCEDURE: CT ANGIOGRAM OF THE CHEST FOR PULMONARY EMBOLISM TECHNIQUE: Computerized axial to mographic angiography of the chest and pulmonary arteries was performed after the IV injection of iodinated nonionic contrast. The image data was postprocessed using maximum intensity projection (MIP) and 2-dimensional multiplanar reformatted (MPR) techniques. The examination is specifically tailored to the evaluation of the pulmonary arteries per clinical request. Automated exposure control, adjustment of mA and/or kV according to patient size, or iterative reconstruction dose optimization techniques were utilized. CPT G9637, 54665 HISTORY: Shortness of breath R06.02, chest pain unspecified R 07.9 , COMPARISONS: 05/23/2018 . FINDINGS: Heart and pericardium: No pericardial effusion or thickening. Thoracic aorta: Minimal atherosclerotic calcification. No aneurysm or dissection. Pulmonary vasculature: Normal. No pulmonary emboli. Lymph nodes: No enlarged thoracic lymph nodes. Lungs: There is new focal 2 cm opacity in the left upper lobe, which could be related to early infiltrate. Minimal platelike atelectasis abutting the left fissure. Pleural space: No effusion, thickening, or pneumothorax. Musculoskeletal structures: Lumbar spine postsurgical changes. Upper abdominal structures: Probable cholelithiasis. Bilateral renal cysts. Left adrenal hyperplasia IMPRESSION: No evidence of pul monary emboli. There is a new focal 2 cm airspace opacity in the left upper lobe which could be related to early infiltrate. Probable cholelithiasis This document is electronically signed by Shona Obrien MD., Jun 30 2018 08:57:31 PM ET Transcribed By: [facility] Dictated By: SHONA OBRIEN M.D. Electronically Authenticated By: SHONA OBRIEN M.D. Signed Date/Time: 06/30/182058 DD/ 37 TD/TT: 06/30/182037 - Differential Diagnosis CHF exacerbation, COPD exacerbation, PE, pneumonia, bronchitis Critical care attestation.: If time is entered above; I have spent that time in minutes in the direct care of this critically ill patient, excluding procedure time. ED Disposition Clinical Impression: Shortness of breath, Pneumonia Disposition: -09 OP ADMIT IP TO THIS HOSP Is pt being admited?: Yes Does the pt Need Aspirin: Yes Condition: Fair Instructions: Bacterial Pneumonia (ED) Referrals: VELIA STOCK MD [Primary Care Provider] - 3-5 Days Time of Disposition: 21:58 (hospitalist paged (Dr. Monse Oneil))
[2018-06-30 19:16] LABS: Basophils # (Auto) 0.1 K/mm3 (0.0-0.1); Eosinophils % (Auto) 0.2 % (0.0-4.3); Hematocrit 30.7 % (30.3-42.9); Hemoglobin 10.5 gm/dl (10.1-14.3); Lymphocytes # (Auto) 0.8 K/mm3 (1.2-5.4); Mean Corpuscular HGB Conc 34 % (30-34); Mean Corpuscular Volume 91 fl (79-97); Monocytes # (Auto) 0.8 K/mm3 (0.0-0.8); Monocytes % (Auto) 7.8 % (0.0-7.3); Platelet Count 293 K/mm3 (140-440); Red Blood Count 3.36 M/mm3 (3.65-5.03); Red Cell Distribution Width 17.6 % (13.2-15.2)
[2018-06-30 19:31] LABS: BUN/Creatinine Ratio 21; Blood Urea Nitrogen 17 mg/dL (7-17); Calcium 9.4 mg/dL (8.4-10.2); Hemolysis Index 16
--- NOTE | 2018-06-30 19:38 | XRay Report ---
PROCEDURE: XR CHEST 1V AP TECHNIQUE: HISTORY: Chest Pain FINDINGS: Frontal view of the chest was acquired and compared to the prior examination of May 30. There is cardiomegaly, similar to the prior examination. There is no evidence of congestive heart bria lure. There is no consolidative infiltrate. IMPRESSION: Stable cardiomegaly No consolidative infiltrate This document is electronically signed by Capo Simon MD., Jun 30 2018 07:36:31 PM ET
[2018-06-30] MEDS ORDERED: TORADOL IV ONE (20:40)
--- NOTE | 2018-06-30 20:59 | Cat Scan Report ---
PROCEDURE: CT ANGIOGRAM OF THE CHEST FOR PULMONARY EMBOLISM TECHNIQUE: Computerized axial tomographic angiography of the chest and pulmonary arteries was perfor med after the IV injection of iodinated nonionic contrast. The image data was postprocessed using max imum intensity projection (MIP) and 2-dimensional multiplanar reformatted (MPR) techniques. The exami nation is specifically tailored to the evaluation of the pulmonary arteries per clinical request. Au tomated exposure control, adjustment of mA and/or kV according to patient size, or iterative reconstr uction dose optimization techniques were utilized. CPT G9637, 02836 HISTORY: Shortness of breath R06.02, chest pain unspecified R07.9 , COMPARISONS: 05/23/2018 . FINDINGS: Heart and pericardium: No pericardial effusion or thickening. Thoracic aorta: Minimal atherosclerotic calcification. No aneurysm or dissection. Pulmonary vasculature: Normal. No pulmonary emboli. Lymph nodes: No enlarged thoracic lymph nodes. Lungs: There is new focal 2 cm opacity in the left upper lobe, which could be related to early infil trate. Minimal platelike atelectasis abutting the left fissure. Pleural space: No effusion, thickening, or pneumothorax. Musculoskeletal structures: Lumbar spine postsurgical changes. Upper abdominal structures: Probable cholelithiasis. Bilateral renal cysts. Left adrenal hyperplasia IMPRESSION: No evidence of pulmonary emboli. There is a new focal 2 cm airspace opacity in the left upper lobe which could be related to early inf iltrate. Probable cholelithiasis This document is electronically signed by Shona Obrien MD., Jun 30 2018 08:57:31 PM ET
--- NOTE | 2018-06-30 21:30 | XRay Report ---
PROCEDURE: PELVIS WITH RIGHT HIP TECHNIQUE: RIGHT hip radiograph, 2 views, including AP view of the pelvis. CPT 73239-WR HISTORY: Pain. Fall. COMPARISONS: None . FINDINGS: Bilateral hip joints demonstrate normal alignment. An acute fracture is not identified. Sacroiliac valerie ints are unremarkable. Pelvic bones are intact. Spinal stabilization hardware is identified involving the lumbosacral spine IMPRESSION: No acute abnormality This document is electronically signed by Pankaj Rico MD., Jun 30 2018 09:28:18 PM ET
[2018-06-30] MEDS ORDERED: ROCEPHIN/NS 1 GM/50 ML 1 GM/50 ML BAG IV ONE (21:36)
[2018-06-30] MEDS ORDERED: SODIUM CHLORIDE FLUSH SYRINGE 10 ML IV PRN (23:11)
[2018-06-30] MEDS ORDERED: TYLENOL PO PRN (23:11)
[2018-06-30] MEDS ORDERED: PROVENTIL IH PRN (23:11)
[2018-06-30] MEDS ORDERED: APRESOLINE IV PRN (23:23)
--- NOTE | 2018-06-30 23:38 | History and Physical Report ---
<KESHIA CARRILLO Vero - Last Filed: 06/30/18 23:53> History of Present Illness Date of examination: 06/30/18 Date of admission: 06/30/2018 Chief complaint: Shortness of breath, discolored sputum production, fever History of present illness: 68-year-old -[place] female with history of CHF, rheumatoid arthritis, hypertension, COPD, chronic respiratory failure with continuous home oxygen use. She is an established patient of Dr. Mcdonald. Patient presented to [facility] ED with complaints of increase shortness of breath, fever, chills, and cough with thick yellow to dark yellow sputum production for the past week. Patient states that her symptoms have progressively gotten worse over the past 2 days. Patient states that she attempted to take her nebulizer treatment but her symptoms persist . Also, patient complained of intermittent 5/10 back pain related to recent fall. She states that there are no aggravating or relieving factors associated with her back pain. Admits to wheezing, and cough with discolored sputum production. Denies n/v, hemoptysis, recent sick contact, or chest pain. Review of chart shows the patient was previously admitted on 05/30/2018 with complaints of chest pain and shortness of breath. At which time CTA was negative for pulmonary embolism and Lexiscan was negative for ischemia. Past History Past Medical History: COPD, heart failure, hypertension, other (rheumatoid arthritis) Past Surgical History: No surgical history Social history: no significant social history Medications and Allergies Allergies Allergy/AdvReac Type Severity Reaction Status Date / Time No Known Allergies Allergy Verified 05/22/18 09:54 Home Medications Medication Instructions Recorded Confirmed Last Taken Type LORazepam [Ativan] 0.5 mg PO BID #20 tablet 05/26/18 05/30/18 1 Day Ago Rx ~05/29/18 ALBUTEROL NEB's [Proventil 0.083% 2.5 mg IH Q4HRT PRN #120 nebu 06/05/18 Unknown Rx NEBS] Albuterol Sulfate [Ventolin Hfa] 2 puff IH Q4H #1 hfa.aer.ad 06/05/18 Unknown Rx Amlodipine Besylate [Norvasc] 10 mg PO DAILY #30 tablet 06/05/18 Unknown Rx Aspirin EC [Aspirin Enteric Coated 81 mg PO QDAY #30 tablet 06/05/18 Unknown Rx TAB] Budesonide/Formoterol Fumarate 10.2 gm IH BID #1 hfa.aer.ad 06/05/18 Unknown Rx [Symbicort 160-4.5 Mcg Inhaler] DULoxetine [Cymbalta] 60 mg PO QDAY #30 capsule 06/05/18 Unknown Rx Furosemide [Lasix TAB] 40 mg PO QDAY #30 tablet 06/05/18 Unknown Rx Losartan [Cozaar] 50 mg PO QDAY #30 tablet 06/05/18 Unknown Rx Metoprolol [Lopressor TAB] 50 mg PO TID #90 tablet 06/05/18 Unknown Rx Potassium Chloride [K-Dur] 20 meq PO DAILY #30 tablet 06/05/18 Unknown Rx Tiotropium [place] [Spiriva 1 puff IH DAILY #1 mist.inhal 06/05/18 Unknown Rx Respimat] busPIRone [Buspar] 7.5 mg PO BID #60 tablet 06/05/18 Unknown Rx guaiFENesin [Robitussin] 200 mg PO Q4HR #20 oral.liqd 06/05/18 Unknown Rx hydrOXYzine HCL [Atarax] 25 mg PO Q6H PRN #60 tablet 06/05/18 Unknown Rx predniSONE [Deltasone] 30 mg PO QDAY #5 tab 06/09/18 Unknown Rx Active Meds: Active Medications Acetaminophen (Tylenol) 650 mg PO Q4H PRN PRN Reason: Pain MILD(1-3)/Fever >100.5/AMOR Albuterol (Proventil) 2.5 mg IH Q4HRT PRN PRN Reason: Shortness Of Breath Albuterol/Ipratropium (Duoneb *Not For Prn Use*) 1 ampul IH Q6HRT ANGELES Amlodipine Besylate (Norvasc) 10 mg PO DAILY ANGELES Aspirin (Halfprin Ec) 81 mg PO QDAY ANGELES Budesonide (Pulmicort) 0.5 mg IH Q12HRT ANGELES Buspirone HCl (Buspar) 7.5 mg PO BID ANGELES Docusate Sodium (Colace) 100 mg PO BID ANGELES Duloxetine HCl (Cymbalta) 60 mg PO QDAY ANGELES Enoxaparin Sodium (Lovenox) 40 mg SUB-Q QDAY ANGELES Furosemide (Lasix) 40 mg IV BID ANGELES Guaifenesin (Mucinex Er) 600 mg PO ONCE ONE Stop: 06/30/18 23:22 Hydralazine HCl (Apresoline) 10 mg IV Q4HR PRN PRN Reason: Blood Pressure Levofloxacin/Dextrose (Levaquin 500mg/100ml) 500 mg in 100 mls @ 100 mls/hr IV Q24HR [facility]; Protocol Losartan Potassium (Cozaar) 50 mg PO QDAY [facility] Methylprednisolone Sodium Succinate (Solu-Medrol) 60 mg IV Q8HR [facility] Metoprolol Tartrate (Lopressor) 50 mg PO TID [facility] Morphine Sulfate (Morphine) 2 mg IV Q4H PRN PRN Reason: Pain, Moderate (4-6) Stop: 07/01/18 23:59 Ondansetron HCl (Zofran) 4 mg IV Q8H PRN PRN Reason: Nausea And Vomiting Oxycodone/Acetaminophen (Percocet 5/325) 1 tab PO Q6H PRN PRN Reason: Pain, Moderate (4-6) Potassium Chloride (K-Dur) 40 meq PO DAILY [facility] Sodium Chloride (Sodium Chloride Flush Syringe 10 Ml) 10 ml IV BID [facility] Sodium Chloride (Sodium Chloride Flush Syringe 10 Ml) 10 ml IV PRN PRN PRN Reason: LINE FLUSH Review of Systems Constitutional: fever, chills, no weight loss Ears, nose, mouth and throat: no decreased hearing, no epistaxis, no hoarseness, no sore throat Breasts: deferred Cardiovascular: edema, shortness of breath, no chest pain, no orthopnea Respiratory: cough with sputum, shortness of breath, dyspnea on exertion, no he moptysis Gastrointestinal: no abdominal pain, no nausea, no vomiting, no diarrhea Genitourinary Female: no urinary frequency, no urgency, no stress incontinence, no nocturia Menstruation: postmenopausal Rectal: no pain, no incontinence, no bleeding Musculoskeletal: low back pain (related to recent fall), no neck stiffness, no neck pain Integumentary: no rash, no pruritis, no redness, no sores Neurological: no paralysis, no weakness, no parathesias, no numbness, no tingling Psychiatric: depression, no insomnia, no hypersomnia, no change in appetite Endocrine: no polydipsia, no polyuria Hematologic/Lymphatic: no easy bruising, no easy bleeding Allergic/Immunologic: wheezing Exam - Physical Exam Narrative exam: Physical exam General appearance: Present: Mild distress- EENT Eyes: Present: PERRL, EOM intact ENT: hearing intact, poor dentition - Neck Neck: Present: supple, normal ROM - Respiratory Respiratory effort: Labored on 3 L nasal cannula Respiratory: bilateral: diminished with poor air movement - Cardiovascular Heart rate:92 (bpm) Rhythm: regular Heart Sounds: Present: S1 & S2. Absent: rub, click - Extremities Extremities: no ischemia, pulses intact, bilateral lower extremity pitting edema L>R - Peripheral Assessment Peripheral Pulses: within normal limits - Abdominal General gastrointestinal: soft, non-tender, normal bowel sounds - Integumentary Integumentary: Present: warm, dry - Musculoskeletal Musculoskeletal: generalized weakness - Psychiatric Psychiatric: cooperative - Constitutional Vitals: Temp Pulse Resp BP Pulse Ox 98.1 F 92 H 15 140/82 98 06/30/18 18:16 06/30/18 21:52 06/30/18 21:52 06/30/18 21:52 06/30/18 21:52 Results - Labs CBC & Chem 7: 06/30/18 18:49 06/30/18 18:49 Labs: Laboratory Last Values WBC 10.2 K/mm3 (4.5-11.0) 06/30/18 18:49 RBC 3.36 M/mm3 (3.65-5.03) L 06/30/18 18:49 Hgb 10.5 gm/dl (10.1-14.3) 06/30/18 18:49 Hct 30.7 % (30.3-42.9) 06/30/18 18:49 MCV 91 fl (79-97) 06/30/18 18:49 MCH 31 pg (28-32) 06/30/18 18:49 MCHC 34 % (30-34) 06/30/18 18:49 RDW 17.6 % (13.2-15.2) H 06/30/18 18:49 Plt Count 293 K/mm3 (140-440) 06/30/18 18:49 Lymph % (Auto) 8.0 % (13.4-35.0) L 06/30/18 18:49 Rice % (Auto) 7.8 % (0.0-7.3) H 06/30/18 18:49 Eos % (Auto) 0.2 % (0.0-4.3) 06/30/18 18:49 Baso % (Auto) 1.0 % (0.0-1.8) 06/30/18 18:49 Lymph # 0.8 K/mm3 (1.2-5.4) L 06/30/18 18:49 Rice # 0.8 K/mm3 (0.0-0.8) 06/30/18 18:49 Eos # 0.0 K/mm3 (0.0-0.4) 06/30/18 18:49 Baso # 0.1 K/mm3 (0.0-0.1) 06/30/18 18:49 Seg Neutrophils % 83.0 % (40.0-70.0) H 06/30/18 18:49 Seg Neutrophils # 8.5 K/mm3 (1.8-7.7) H 06/30/18 18:49 747.37 ng/mlDDU (0-234) H 06/30/18 19:11 POC ABG pH 7.487 (7.35-7.45) H 06/30/18 19:27 POC ABG pCO2 43.6 (35-45) 06/30/18 19:27 POC ABG pO2 104 (80-105) 06/30/18 19:27 POC ABG HCO3 33.0 (22-26 mml/L) 06/30/18 19:27 POC ABG Total CO2 34 (23-27mmol/L) 06/30/18 19:27 POC ABG O2 Sat 98 06/30/18 19:27 POC ABG Base Excess 10 ((-2) - (+3)mmol/L) 06/30/18 19:27 28 % 06/30/18 19:27 Sodium 146 mmol/L (137-145) H 06/30/18 18:49 Potassium 3.8 mmol/L (3.6-5.0) 06/30/18 18:49 Chloride 102.2 mmol/L (98-107) 06/30/18 18:49 Carbon Dioxide 30 mmol/L (22-30) 06/30/18 18:49 18 mmol/L 06/30/18 18:49 BUN 17 mg/dL (7-17) 06/30/18 18:49 0.8 mg/dL (0.7-1.2) 06/30/18 18:49 Estimated GFR > 60 ml/min 06/30/18 18:49 21 % 06/30/18 18:49 Glucose 94 mg/dL (65-100) 06/30/18 18:49 Calcium 9.4 mg/dL (8.4-10.2) 06/30/18 18:49 < 0.010 ng/mL (0.00-0.029) 06/30/18 18:49 NT-Pro-B Natriuret Pep 675.4 pg/mL (0-900) 06/30/18 19:11 Short CBC 06/30/18 Range/Units 18:49 WBC 10.2 (4.5-11.0) K/mm3 Hgb 10.5 (10.1-14.3) gm/dl Hct 30.7 (30.3-42.9) % Plt Count 293 (140-440) K/mm3 BMP 06/30/18 18:49 Sodium 146 H Potassium 3.8 Chloride 102.2 Carbon Dioxide 30 BUN 17 Creatinine 0.8 Glucose 94 Calcium 9.4 Cardiac Enzymes 06/30/18 Range/Units 18:49 Troponin T < 0.010 (0.00-0.029) ng/mL - Imaging and Cardiology Chest x-ray: report reviewed (Stable cardiomegaly. No consolidative infiltrate ), image reviewed CT scan - chest: report reviewed, image reviewed (No evidence of pulmonary emboli. There is a new focal 2 cm airspace opacity in the left upper lobe which could be related to early ) Imaging and Cardiology: Hip X-ray: No acute abnormality Assessment and Plan Assessment and plan: 68-year-old -Tu[place] female with history of CHF, rheumatoid arthritis, hypertension, COPD, chronic respiratory failure with continuous home oxygen use of 2 L nasal cannula presented to [facility] ED with complaints of fever, chills, and cough with thick yellow to dark yellow sputum production for the past week. Patient states that her symptoms have progressively gotten worse over the past 2 days. Also, patient complained of back pain related to recent fall. Hip x-ray was unrevealing for any acute abnormalities. Patient will be admitted to the [facility]. Consult has been placed to Dr. Jhaveri. 1. Acute exacerbation COPD 2. Acute exacerbation CHF 3. Volume overload likely secondary to #2 4. Acute on chronic respiratory failure 5. Hypertension 6. History of rheumatoid arthritis 7. Acute back pain 8. History of depression Plan: Start Levaquin 500 mg daily Start DuoNeb's, when necessary albuterol, schedule Pulmicort Start Solu-Medrol 60 mg every 8 hours Start Mucinex daily Continue to monitor oxygen saturation; wean oxygen to baseline as tolerated Pulmonary consult pending Start IV Lasix 40 mg twice a day Daily Potassium replacement 40Meq Monitor electrolytes Monitor CBC Continue home antidepressants BuSpar 7.5mg twice a day and Cymbalta 60 mg daily Monitor BP Resume home losartan 50 mg daily, Norvasc 10 mg daily, metoprolol 50 mg 3 times a day IV hydralazine when necessary Pain management DVT PPX on Lovenox Advance Directives: No VTE prophylaxis?: Chemical <BRIGID SANCHES - Last Filed: 07/01/18 03:12> History of Present Illness Date of admission: 06/30/18 23:11 Medications and Allergies Active Meds: Active Medications Acetaminophen (Tylenol) 650 mg PO Q4H PRN PRN Reason: Pain MILD(1-3)/Fever >100.5/AMOR Albuterol (Proventil) 2.5 mg IH Q4HRT PRN PRN Reason: Shortness Of Breath Albuterol/Ipratropium (Duoneb *Not For Prn Use*) 1 ampul IH Q6HRT ANGELES Amlodipine Besylate (Norvasc) 10 mg PO DAILY ANGELES Aspirin (Halfprin Ec) 81 mg PO QDAY ANGELES Budesonide (Pulmicort) 0.5 mg IH Q12HRT ANGELES Buspirone HCl (Buspar) 7.5 mg PO BID ANGELES Docusate Sodium (Colace) 100 mg PO BID ANGELES Duloxetine HCl (Cymbalta) 60 mg PO QDAY ANGELES Enoxaparin Sodium (Lovenox) 40 mg SUB-Q QDAY ANGELES Furosemide (Lasix) 40 mg IV BID ANGELES Hydralazine HCl (Apresoline) 10 mg IV Q4H PRN PRN Reason: Blood Pressure Levofloxacin/Dextrose (Levaquin 500mg/100ml) 500 mg in 100 mls @ 100 mls/hr IV Q24HR ANGELES; Protocol Losartan Potassium (Cozaar) 50 mg PO QDAY ANGELES Metoprolol Tartrate (Lopressor) 50 mg PO TID [facility] Morphine Sulfate (Morphine) 2 mg IV Q4H PRN PRN Reason: Pain, Moderate (4-6) Stop: 07/01/18 23:59 Last Admin: 07/01/18 02:11 Dose: 2 mg Documented by: Ondansetron HCl (Zofran) 4 mg IV Q8H PRN PRN Reason: Nausea And Vomiting Oxycodone/Acetaminophen (Percocet 5/325) 1 tab PO Q6H PRN PRN Reason: Pain, Moderate (4-6) Potassium Chloride (K-Dur) 40 meq PO DAILY [facility] Sodium Chloride (Sodium Chloride Flush Syringe 10 Ml) 10 ml IV BID [facility] Sodium Chloride (Sodium Chloride Flush Syringe 10 Ml) 10 ml IV PRN PRN PRN Reason: LINE FLUSH Exam - Constitutional Vitals: Temp Pulse Resp BP Pulse Ox 98.2 F 97 H 18 134/75 100 07/01/18 01:29 07/01/18 01:29 07/01/18 02:11 07/01/18 01:29 07/01/18 01:29 Results - Labs CBC & Chem 7: 06/30/18 18:49 06/30/18 18:49 Labs: Laboratory Last Values WBC 10.2 K/mm3 (4.5-11.0) 06/30/18 18:49 RBC 3.36 M/mm3 (3.65-5.03) L 06/30/18 18:49 Hgb 10.5 gm/dl (10.1-14.3) 06/30/18 18:49 Hct 30.7 % (30.3-42.9) 06/30/18 18:49 MCV 91 fl (79-97) 06/30/18 18:49 MCH 31 pg (28-32) 06/30/18 18:49 MCHC 34 % (30-34) 06/30/18 18:49 RDW 17.6 % (13.2-15.2) H 06/30/18 18:49 Plt Count 293 K/mm3 (140-440) 06/30/18 18:49 Lymph % (Auto) 8.0 % (13.4-35.0) L 06/30/18 18:49 Rice % (Auto) 7.8 % (0.0-7.3) H 06/30/18 18:49 Eos % (Auto) 0.2 % (0.0-4.3) 06/30/18 18:49 Baso % (Auto) 1.0 % (0.0-1.8) 06/30/18 18:49 Lymph # 0.8 K/mm3 (1.2-5.4) L 06/30/18 18:49 Rice # 0.8 K/mm3 (0.0-0.8) 06/30/18 18:49 Eos # 0.0 K/mm3 (0.0-0.4) 06/30/18 18:49 Baso # 0.1 K/mm3 (0.0-0.1) 06/30/18 18:49 Seg Neutrophils % 83.0 % (40.0-70.0) H 06/30/18 18:49 Seg Neutrophils # 8.5 K/mm3 (1.8-7.7) H 06/30/18 18:49 747.37 ng/mlDDU (0-234) H 06/30/18 19:11 POC ABG pH 7.487 (7.35-7.45) H 06/30/18 19:27 POC ABG pCO2 43.6 (35-45) 06/30/18 19:27 POC ABG pO2 104 (80-105) 06/30/18 19:27 POC ABG HCO3 33.0 (22-26 mml/L) 06/30/18 19:27 POC ABG Total CO2 34 (23-27mmol/L) 06/30/18 19:27 POC ABG O2 Sat 98 06/30/18 19:27 POC ABG Base Excess 10 ((-2) - (+3)mmol/L) 06/30/18 19:27 28 % 06/30/18 19:27 Sodium 146 mmol/L (137-145) H 06/30/18 18:49 Potassium 3.8 mmol/L (3.6-5.0) 06/30/18 18:49 Chloride 102.2 mmol/L (98-107) 06/30/18 18:49 Carbon Dioxide 30 mmol/L (22-30) 06/30/18 18:49 18 mmol/L 06/30/18 18:49 BUN 17 mg/dL (7-17) 06/30/18 18:49 0.8 mg/dL (0.7-1.2) 06/30/18 18:49 Estimated GFR > 60 ml/min 06/30/18 18:49 21 % 06/30/18 18:49 Glucose 94 mg/dL (65-100) 06/30/18 18:49 Calcium 9.4 mg/dL (8.4-10.2) 06/30/18 18:49 < 0.010 ng/mL (0.00-0.029) 06/30/18 18:49 NT-Pro-B Natriuret Pep 675.4 pg/mL (0-900) 06/30/18 19:11 Assessment and Plan Assessment and plan: 68-year-old woman with a history of COPD, CHF, hypertension, rheumatoid arthritis, depression because emergency room complains of shortness breath, cough productive of yellow phlegm. Patient with COPD exacerbation, follow-up as discussed above, except increase dose of steroids. Patient seen and examined with DENTAL APPLIANCE FIXER
[2018-07-01] MEDS: MORPHINE IV PRN ×5 (02:11→21:17)
[2018-07-01] MEDS: MUCINEX ER PO ONE ×2 (02:11→07:54)
[2018-07-01] MEDS ORDERED: MUCINEX ER PO ONE (03:00)
[2018-07-01] MEDS: SOLU-Medrol IV SCH ×3 (05:39→21:11)
[2018-07-01] MEDS ORDERED: SOLU-Medrol IV SCH (06:00)
[2018-07-01 06:24] LABS: Basophils % (Auto) 0.2 % (0.0-1.8); Eosinophils # (Auto) 0.1 K/mm3 (0.0-0.4); Eosinophils % (Auto) 1.1 % (0.0-4.3); Hematocrit 29.4 % (30.3-42.9); Hemoglobin 9.7 gm/dl (10.1-14.3); Lymphocytes # (Auto) 1.2 K/mm3 (1.2-5.4); Lymphocytes % (Auto) 15.9 % (13.4-35.0); Mean Corpuscular HGB Conc 33 % (30-34); Mean Corpuscular Volume 93 fl (79-97); Monocytes # (Auto) 0.8 K/mm3 (0.0-0.8); Monocytes % (Auto) 10.2 % (0.0-7.3); Platelet Count 286 K/mm3 (140-440); Red Blood Count 3.15 M/mm3 (3.65-5.03); Red Cell Distribution Width 17.8 % (13.2-15.2)
[2018-07-01 06:48] LABS: BUN/Creatinine Ratio 22; Blood Urea Nitrogen 20 mg/dL (7-17); Calcium 8.6 mg/dL (8.4-10.2); Hemolysis Index 14
[2018-07-01] MEDS: LOPRESSOR PO SCH ×3 (07:53→21:14)
[2018-07-01] MEDS: DUONEB *Not for PRN Use IH SCH ×4 (07:54→20:33)
[2018-07-01] MEDS: PULMICORT IH SCH ×2 (08:16→20:33)
[2018-07-01] MEDS: LASIX IV SCH ×2 (08:59→21:10)
[2018-07-01] MEDS: BUSPAR PO SCH ×2 (08:59→23:21)
[2018-07-01] MEDS: CYMBALTA PO SCH (09:00)
[2018-07-01] MEDS: K-DUR PO SCH (09:01)
[2018-07-01] MEDS: NORVASC PO SCH (09:03)
[2018-07-01] MEDS: COLACE PO SCH ×2 (09:03→20:10)
[2018-07-01] MEDS: COZAAR PO SCH (09:03)
[2018-07-01] MEDS: LOVENOX SUB-Q SCH (09:04)
[2018-07-01] MEDS: SODIUM CHLORIDE FLUSH SYRINGE 10 ML IV SCH (09:13)
[2018-07-01] MEDS: HALFPRIN EC PO SCH (09:15)
[2018-07-01] MEDS ORDERED: LEVAQUIN 500MG/100ML 500 MG/100 ML BAG IV SCH (10:00)
[2018-07-01] MEDS: PERCOCET 5/325 PO PRN (10:33)
[2018-07-01] MEDS: ZITHROMAX PO SCH (11:49)
[2018-07-01] MEDS: ROCEPHIN/NS 1 GM/50 ML 1 GM/50 ML BAG IV SCH (11:49)
--- NOTE | 2018-07-01 14:36 | Progress Note ---
Assessment and Plan Assessment and plan: 68-year-old -[place] female with history of CHF, rheumatoid arthritis, hypertension, COPD, chronic respiratory failure with continuous home oxygen use of 2 L nasal cannula presented to [facility] ED with complaints of fever, chills, and cough with thick yellow to dark yellow sputum production for the past week. Patient states that her symptoms have progressively gotten worse over the past 2 days. Also, patient complained of back pain related to recent fall. Hip x-ray was unrevealing for any acute abnormalities. Patient will be admitted to the [facility]. Consult has been placed to Dr. Jhaveri. 1. Acute exacerbation COPD, Pneumonia - Patient is on IV Rocephin and azithromycin, DuoNeb, Solu-Medrol, Pulmicort, Mucinex, oxygen support 2. Acute exacerbation CHF - lasix 40 mg twice a day, electrolyte replacement 3. Volume overload likely secondary to #2 4. Acute on chronic respiratory failure 5. Hypertension - Continue losartan, Norvasc and metoprolol 6. History of rheumatoid arthritis 7. Acute back pain 8. History of depression; continue Cymbalta and was DVT prophylaxis Disposition; continue inpatient care. History Interval history: Patient was seen and evaluated this morning, patient is complaining shortness of breath. Hospitalist Physical - Physical exam Narrative exam: In respiratory distress. The patient appeared well nourished and normally developed. Vital signs as documented. Head exam is unremarkable. No scleral icterus . Neck is without jugular venous distension, thyromegaly, or carotid bruits. Lungs are clear to auscultation. Cardiac exam reveals regular rate and Rhythm. Abdominal exam reveals normal bowel sounds. Extremities are nonedematous and both femoral and pedal pulses are normal. MERCHANDISING COORDINATOR: Alert and oriented 3. No focal weakness. - Constitutional Vitals: Temp Pulse Resp BP Pulse Ox 98.5 F 94 H 18 108/66 96 07/01/18 14:11 07/01/18 14:11 07/01/18 14:11 07/01/18 14:11 07/01/18 14:11 Results - Labs CBC & Chem 7: 07/01/18 05:53 07/01/18 05:53 Labs: Laboratory Last Values WBC 7.4 K/mm3 (4.5-11.0) 07/01/18 05:53 RBC 3.15 M/mm3 (3.65-5.03) L 07/01/18 05:53 Hgb 9.7 gm/dl (10.1-14.3) L 07/01/18 05:53 Hct 29.4 % (30.3-42.9) L 07/01/18 05:53 MCV 93 fl (79-97) 07/01/18 05:53 MCH 31 pg (28-32) 07/01/18 05:53 MCHC 33 % (30-34) 07/01/18 05:53 RDW 17.8 % (13.2-15.2) H 07/01/18 05:53 Plt Count 286 K/mm3 (140-440) 07/01/18 05:53 Lymph % (Auto) 15.9 % (13.4-35.0) 07/01/18 05:53 Frontier % (Auto) 10.2 % (0.0-7.3) H 07/01/18 05:53 Eos % (Auto) 1.1 % (0.0-4.3) 07/01/18 05:53 Baso % (Auto) 0.2 % (0.0-1.8) 07/01/18 05:53 Lymph # 1.2 K/mm3 (1.2-5.4) 07/01/18 05:53 Frontier # 0.8 K/mm3 (0.0-0.8) 07/01/18 05:53 Eos # 0.1 K/mm3 (0.0-0.4) 07/01/18 05:53 Baso # 0.0 K/mm3 (0.0-0.1) 07/01/18 05:53 Seg Neutrophils % 72.6 % (40.0-70.0) H 07/01/18 05:53 Seg Neutrophils # 5.3 K/mm3 (1.8-7.7) 07/01/18 05:53 747.37 ng/mlDDU (0-234) H 06/30/18 19:11 POC ABG pH 7.487 (7.35-7.45) H 06/30/18 19:27 POC ABG pCO2 43.6 (35-45) 06/30/18 19:27 POC ABG pO2 104 (80-105) 06/30/18 19:27 POC ABG HCO3 33.0 (22-26 mml/L) 06/30/18 19:27 POC ABG Total CO2 34 (23-27mmol/L) 06/30/18 19:27 POC ABG O2 Sat 98 06/30/18 19:27 POC ABG Base Excess 10 ((-2) - (+3)mmol/L) 06/30/18 19:27 28 % 06/30/18 19:27 Sodium 144 mmol/L (137-145) 07/01/18 05:53 Potassium 3.6 mmol/L (3.6-5.0) 07/01/18 05:53 Chloride 102.6 mmol/L (98-107) 07/01/18 05:53 Carbon Dioxide 27 mmol/L (22-30) 07/01/18 05:53 18 mmol/L 07/01/18 05:53 BUN 20 mg/dL (7-17) H 07/01/18 05:53 0.9 mg/dL (0.7-1.2) 07/01/18 05:53 Estimated GFR > 60 ml/min 07/01/18 05:53 22 % 07/01/18 05:53 Glucose 195 mg/dL (65-100) H 07/01/18 05:53 Calcium 8.6 mg/dL (8.4-10.2) 07/01/18 05:53 < 0.010 ng/mL (0.00-0.029) 06/30/18 18:49 NT-Pro-B Natriuret Pep 675.4 pg/mL (0-900) 06/30/18 19:11 Active Medications - Current Medications Current Medications: Generic Name Dose Route Start Last Admin Trade Name Freq PRN Reason Stop Dose Admin Acetaminophen 650 mg 06/30/18 23:11 Tylenol PO Q4H PRN Pain MILD(1-3)/Fever >100.5/AMOR Albuterol 2.5 mg 06/30/18 23:11 Proventil IH Q4HRT PRN Shortness Of Breath Albuterol/Ipratropium 1 ampul 07/01/18 02:00 07/01/18 13:42 Duoneb *Not For Prn Use* IH 1 ampul Q6HRT ANGELES Administration Amlodipine Besylate 10 mg 07/01/18 10:00 07/01/18 09:03 Norvasc PO 10 mg DAILY ANGELES Administration Aspirin 81 mg 07/01/18 10:00 07/01/18 09:15 Halfprin Ec PO 81 mg QDAY ANGELES Administration Azithromycin 500 mg 07/01/18 11:00 07/01/18 11:49 Zithromax PO 500 mg QDAY ANGELES Administration Budesonide 0.5 mg 07/01/18 08:00 07/01/18 08:16 Pulmicort IH 0.5 mg Q12HRT ANGELES Administration Buspirone HCl 7.5 mg 07/01/18 10:00 07/01/18 08:59 Buspar PO 7.5 mg BID ANGELES Administration Docusate Sodium 100 mg 07/01/18 10:00 07/01/18 09:03 Colace PO 100 mg BID ANGELES Administration Duloxetine HCl 60 mg 07/01/18 10:00 07/01/18 09:00 Cymbalta PO 60 mg QDAY ANGELES Administration Enoxaparin Sodium 40 mg 07/01/18 10:00 07/01/18 09:04 Lovenox SUB-Q 40 mg QDAY ANGELES Administration Furosemide 40 mg 07/01/18 10:00 07/01/18 08:59 Lasix IV 40 mg BID ANGELES Administration Hydralazine HCl 10 mg 06/30/18 23:23 Apresoline IV Q4H PRN Blood Pressure Ceftriaxone Sodium 1 gm in 50 mls @ 100 mls/hr 07/01/18 11:00 07/01/18 11:49 Rocephin/Ns 1 Gm/50 Ml IV 100 mls/hr Q24HR ANGELES Administration Protocol Losartan Potassium 50 mg 07/01/18 10:00 07/01/18 09:03 Cozaar PO 50 mg QDAY ANGELES Administration Methylprednisolone Sodium Succinate 125 mg 07/01/18 06:00 07/01/18 14:27 Solu-Medrol IV 125 mg Q8HR ANGELES Administration Metoprolol Tartrate 50 mg 07/01/18 08:00 07/01/18 14:25 Lopressor PO Not Given TID ANGELES Morphine Sulfate 2 mg 06/30/18 23:11 07/01/18 11:57 Morphine IV 07/01/18 23:59 2 mg Q4H PRN Administration Pain, Moderate (4-6) Ondansetron HCl 4 mg 06/30/18 23:11 Zofran IV Q8H PRN Nausea And Vomiting Oxycodone/Acetaminophen 1 tab 06/30/18 23:11 07/01/18 10:33 Percocet 5/325 PO 1 tab Q6H PRN Administration Pain, Moderate (4-6) Potassium Chloride 40 meq 07/01/18 10:00 07/01/18 09:01 K-Dur PO 40 meq DAILY ANGELES Administration Sodium Chloride 10 ml 07/01/18 10:00 07/01/18 09:13 Sodium Chloride Flush Syringe 10 Ml IV 10 ml BID ANGELES Administration Sodium Chloride 10 ml 06/30/18 23:11 Sodium Chloride Flush Syringe 10 Ml IV PRN PRN LINE FLUSH
--- NOTE | 2018-07-01 20:38 | Consultation ---
History of Present Illness Consult date: 07/01/18 Reason for consult: dyspnea, cough, chest pain History of present illness: PULMONARY AND CRITICAL CARE CONSULTATION DR. FERNANDEZ THANK YOU FOR ASKING US TO PARTICIPATE IN THE CARE OF THIS PATIENT. 68-year-old -[place] female with history of CHF, rheumatoid arthritis, hypertension, COPD, chronic respiratory failure with continuous home oxygen use. Patient known to me . Patient recently discharged [facility]. Patient presented to [facility] ED with complaints of increase shortness of breath, fever, chills, and cough with thick yellow to dark yellow sputum production for the past week. Patient states that her symptoms have progressively gotten worse over the past 2 days. Patient states that she attempted to take her nebulizer treatment but her symptoms persist . Also, patient complained of intermittent 5/10 back pain related to recent fall. She states that there are no aggravating or relieving factors associated with her back pain. Admits to wheezing, and cough with discolored sputum production. Denies n/v, hemoptysis, recent sick contact, or chest pain. Review of chart shows the patient was previously admitted on 05/30/2018 with complaints of chest pain and shortness of breath. At which time CTA was negative for pulmonary embolism and Lexiscan was negative for ischemia. Patient presently resting on 3 litres O2. O2 saturation 96%. Chest xray reported stable cardiomegaly no consolidations. Angio CT of chest reported No PE . Reported 2 cmm left upper lobe air space disease. Past History Past Medical History: COPD, heart failure, hypertension, other (rheumatoid arthritis) Past Surgical History: No surgical history Social history: no significant social history Medications and Allergies Allergies Allergy/AdvReac Type Severity Reaction Status Date / Time No Known Allergies Allergy Verified 05/22/18 09:54 Home Medications Medication Instructions Recorded Confirmed Last Taken Type LORazepam [Ativan] 0.5 mg PO BID #20 tablet 05/26/18 07/01/18 1 Day Ago Rx ~05/29/18 ALBUTEROL NEB's [Proventil 0.083% 2.5 mg IH Q4HRT PRN #120 nebu 06/05/18 07/01/18 Unknown Rx NEBS] Albuterol Sulfate [Ventolin Hfa] 2 puff IH Q4H #1 hfa.aer.ad 06/05/18 07/01/18 Unknown Rx Amlodipine Besylate [Norvasc] 10 mg PO DAILY #30 tablet 06/05/18 07/01/18 Unknown Rx Aspirin EC [Aspirin Enteric Coated 81 mg PO QDAY #30 tablet 06/05/18 07/01/18 Unknown Rx TAB] Budesonide/Formoterol Fumarate 10.2 gm IH BID #1 hfa.aer.ad 06/05/18 07/01/18 U nknown Rx [Symbicort 160-4.5 Mcg Inhaler] DULoxetine [Cymbalta] 60 mg PO QDAY #30 capsule 06/05/18 07/01/18 Unknown Rx Furosemide [Lasix TAB] 40 mg PO QDAY #30 tablet 06/05/18 07/01/18 Unknown Rx Losartan [Cozaar] 50 mg PO QDAY #30 tablet 06/05/18 07/01/18 Unknown Rx Metoprolol [Lopressor TAB] 50 mg PO TID #90 tablet 06/05/18 07/01/18 Unknown Rx Potassium Chloride [K-Dur] 20 meq PO DAILY #30 tablet 06/05/18 07/01/18 Unknown Rx Tiotropium [place] [Spiriva 1 puff IH DAILY #1 mist.inhal 06/05/18 07/01/18 Unknown Rx Respimat] busPIRone [Buspar] 7.5 mg PO BID #60 tablet 06/05/18 07/01/18 Unknown Rx guaiFENesin [Robitussin] 200 mg PO Q4HR #20 oral.liqd 06/05/18 07/01/18 Unknown Rx hydrOXYzine HCL [Atarax] 25 mg PO Q6H PRN #60 tablet 06/05/18 07/01/18 Unknown Rx predniSONE [Deltasone] 30 mg PO QDAY #5 tab 06/09/18 07/01/18 Unknown Rx Active Meds: Active Medications Acetaminophen (Tylenol) 650 mg PO Q4H PRN PRN Reason: Pain MILD(1-3)/Fever >100.5/AMOR Albuterol (Proventil) 2.5 mg IH Q4HRT PRN PRN Reason: Shortness Of Breath Albuterol/Ipratropium (Duoneb *Not For Prn Use*) 1 ampul IH Q6HRT [facility] Last Admin: 07/01/18 13:42 Dose: 1 ampul Documented by: Amlodipine Besylate (Norvasc) 10 mg PO DAILY [facility] Last Admin: 07/01/18 09:03 Dose: 10 mg Documented by: Aspirin (Halfprin Ec) 81 mg PO QDAY [facility] Last Admin: 07/01/18 09:15 Dose: 81 mg Documented by: Azithromycin (Zithromax) 500 mg PO QDAY [facility] Last Admin: 07/01/18 11:49 Dose: 500 mg Documented by: Budesonide (Pulmicort) 0.5 mg IH Q12HRT [facility] Last Admin: 07/01/18 08:16 Dose: 0.5 mg Documented by: Buspirone HCl (Buspar) 7.5 mg PO BID [facility] Last Admin: 07/01/18 08:59 Dose: 7.5 mg Documented by: Docusate Sodium (Colace) 100 mg PO BID [facility] Last Admin: 07/01/18 09:03 Dose: 100 mg Documented by: Duloxetine HCl (Cymbalta) 60 mg PO QDAY [facility] Last Admin: 07/01/18 09:00 Dose: 60 mg Documented by: Enoxaparin Sodium (Lovenox) 40 mg SUB-Q QDAY [facility] Last Admin: 07/01/18 09:04 Dose: 40 mg Documented by: Furosemide (Lasix) 40 mg IV BID [facility] Last Admin: 07/01/18 08:59 Dose: 40 mg Documented by: Hydralazine HCl (Apresoline) 10 mg IV Q4H PRN PRN Reason: Blood Pressure Ceftriaxone Sodium (Rocephin/Ns 1 Gm/50 Ml) 1 gm in 50 mls @ 100 mls/hr IV Q24HR [facility]; Protocol Last Admin: 07/01/18 11:49 Dose: 100 mls/hr Documented by: Losartan Potassium (Cozaar) 50 mg PO QDAY [facility] Last Admin: 07/01/18 09:03 Dose: 50 mg Documented by: Methylprednisolone Sodium Succinate (Solu-Medrol) 125 mg IV Q8HR [facility] Last Admin: 07/01/18 14:27 Dose: 125 mg Documented by: Metoprolol Tartrate (Lopressor) 50 mg PO TID [facility] Last Admin: 07/01/18 14:25 Dose: Not Given Documented by: Morphine Sulfate (Morphine) 2 mg IV Q4H PRN PRN Reason: Pain, Moderate (4-6) Stop: 07/01/18 23:59 Last Admin: 07/01/18 16:00 Dose: 2 mg Documented by: Ondansetron HCl (Zofran) 4 mg IV Q8H PRN PRN Reason: Nausea And Vomiting Oxycodone/Acetaminophen (Percocet 5/325) 1 tab PO Q6H PRN PRN Reason: Pain, Moderate (4-6) Last Admin: 07/01/18 10:33 Dose: 1 tab Documented by: Potassium Chloride (K-Dur) 40 meq PO DAILY [facility] Last Admin: 07/01/18 09:01 Dose: 40 meq Documented by: Sodium Chloride (Sodium Chloride Flush Syringe 10 Ml) 10 ml IV BID [facility] Last Admin: 07/01/18 09:13 Dose: 10 ml Documented by: Sodium Chloride (Sodium Chloride Flush Syringe 10 Ml) 10 ml IV PRN PRN PRN Reason: LINE FLUSH Review of Systems All systems: negative Physical Examination Vital signs: Vital Signs BP 131/77 06/30/18 18:08 General appearance: no acute distress, alert, appears uncomfortable Eyes: non-icteric ENT: oropharynx moist Neck: supple, no JVD Ascultation: Bilateral: diminished breath sounds, other (Prolonged expiratory phase.) Cardiovascular: regular rate and rhythm Gastrointestinal: normoactive bowel sounds, soft, non-tender Integumentary: normal Extremities: no cyanosis, no edema Musculoskeletal: no deformities Gait: poor gait normal mental status, non-focal exam, pupils equal and round, CN II-XII normal anxious Results - Laboratory Findings CBC and BMP: 07/01/18 05:53 07/01/18 05:53 ABG POC ABG pH 7.487 (7.35-7.45) H 06/30/18 19:27 POC ABG pCO2 43.6 (35-45) 06/30/18 19:27 POC ABG pO2 104 (80-105) 06/30/18 19:27 POC ABG HCO3 33.0 (22-26 mml/L) 06/30/18 19:27 POC ABG Total CO2 34 (23-27mmol/L) 06/30/18 19:27 POC ABG O2 Sat 98 06/30/18 19:27 PT/INR, D-dimer 747.37 ng/mlDDU (0-234) H 06/30/18 19:11 Abnormal lab findings: Abnormal Labs 06/30/18 06/30/18 06/30/18 18:49 18:49 19:11 RBC 3.36 L Hgb Hct RDW 17.6 H Lymph % (Auto) 8.0 L [place] % (Auto) 7.8 H Lymph # 0.8 L Seg Neutrophils % 83.0 H Seg Neutrophils # 8.5 H D-Dimer 747.37 H POC ABG pH Sodium 146 H BUN Glucose 06/30/18 07/01/18 07/01/18 19:27 05:53 05:53 RBC 3.15 L Hgb 9.7 L Hct 29.4 L RDW 17.8 H Lymph % (Auto) [place] % (Auto) 10.2 H Lymph # Seg Neutrophils % 72.6 H Seg Neutrophils # D-Dimer POC ABG pH 7.487 H Sodium BUN 20 H Glucose 195 H - Diagnostic Findings Chest x-ray: report reviewed (Reported stable cardiomegaly and no consolidation.), image reviewed CT scan - chest: report reviewed (Angio CT of chest no pulmonary emboli. 2cm left upper lobe air space disease .), image reviewed Assessment and Plan 68-year-old -[place] female with history of CHF, rheumatoid arthritis, hypertension, COPD, chronic respiratory failure with continuous home oxygen use. Patient known to me . Patient recently discharged [facility]. Patient presented to [facility] ED with complaints of increase shortness of breath, fever, chills, and cough with thick yellow to dark yellow sputum production for the past week. Patient states that her symptoms have progressively gotten worse over the past 2 days. Patient states that she attempted to take her nebulizer treatment but her symptoms persist . Also, patient complained of intermittent 5/10 back pain related to recent fall. She states that there are no aggravating or relieving factors associated with her back pain. Admits to wheezing, and cough with discolored sputum production. Denies n/v, hemoptysis, recent sick contact, or chest pain. Review of chart shows the patient was previously admitted on 05/30/2018 with complaints of chest pain and shortness of breath. At which time CTA was negative for pulmonary embolism and Lexiscan was negative for ischemia. Patient presently resting on 3 litres O2. O2 saturation 96%. Chest xray reported stable cardiomegaly no consolidations. Angio CT of chest reported No PE . Reported 2 cmm left upper lobe air space disease. - Patient Problems (1) Acute respiratory failure Current Visit: No Status: Acute Qualifiers: Respiratory failure complication: hypoxia Qualified Code(s): J96.01 - Acute respiratory failure with hypoxia Plan to address problem: O2 2 litres via nasal canula. Albuterol/atrovent aerosol treatments q 6 hours. Continue I/V solumedrol Continue S/C Lovenox. Recommend GI Prophylaxis. Continue ceftrioxone. and zithromax. (2) Pneumonia Current Visit: Yes Status: Acute Plan to address problem: Continue ceftrioxone and zithromax. (3) COPD exacerbation Current Visit: No Status: Acute Plan to address problem: O2 2 litres via nasal canula. Albuterol/atrovent aerosol treatments q 6 hours. Continue I/V solumedrol Continue S/C Lovenox. Recommend GI Prophylaxis Continue zithromax and ceftrioxone. (4) Depression Current Visit: No Status: Chronic Qualifiers: Depression Type: unspecified Qualified Code(s): F32.9 - Major depressive disorder, single episode, unspecified Plan to address problem: Management as per primary care. (5) HTN (hypertension) Current Visit: No Status: Chronic Qualifiers: Hypertension type: essential hypertension Qualified Code(s): I10 - Essential (primary) hypertension Plan to address problem: Management as per primary care.
[2018-07-01] MEDS: ATIVAN PO PRN (21:12)
[2018-07-02] MEDS: SODIUM CHLORIDE FLUSH SYRINGE 10 ML IV SCH ×2 (00:23→09:21)
[2018-07-02] MEDS: PERCOCET 5/325 PO PRN ×4 (00:59→21:37)
[2018-07-02] MEDS: DUONEB *Not for PRN Use IH SCH ×4 (03:37→20:01)
[2018-07-02 06:23] LABS: Hematocrit 30.1 % (30.3-42.9); Hemoglobin 9.9 gm/dl (10.1-14.3); Mean Corpuscular HGB Conc 33 % (30-34); Mean Corpuscular Volume 93 fl (79-97); Platelet Count 308 K/mm3 (140-440); Red Blood Count 3.24 M/mm3 (3.65-5.03); Red Cell Distribution Width 18.1 % (13.2-15.2)
[2018-07-02] MEDS: ATIVAN PO PRN ×2 (07:17→21:38)
[2018-07-02] MEDS: LOPRESSOR PO SCH ×3 (07:20→21:36)
[2018-07-02] MEDS: SOLU-Medrol IV SCH ×3 (07:23→21:24)
[2018-07-02 07:26] LABS: Basophils % (Manual) 0 % (0.0-1.8); Total Cells Counted 100
[2018-07-02 07:27] LABS: Anisocytosis 1+; Eosinophils % (Manual) 0 % (0.0-4.3)
[2018-07-02] MEDS: PULMICORT IH SCH ×2 (08:50→20:01)
[2018-07-02] MEDS: NORVASC PO SCH (09:08)
[2018-07-02] MEDS: COZAAR PO SCH (09:09)
[2018-07-02] MEDS: COLACE PO SCH ×2 (09:09→21:37)
[2018-07-02] MEDS: K-DUR PO SCH (09:09)
[2018-07-02] MEDS: CYMBALTA PO SCH (09:09)
[2018-07-02] MEDS: BUSPAR PO SCH ×2 (09:10→21:38)
[2018-07-02] MEDS: LASIX IV SCH ×2 (09:11→21:33)
[2018-07-02] MEDS: ROCEPHIN/NS 1 GM/50 ML 1 GM/50 ML BAG IV SCH (09:11)
[2018-07-02] MEDS: ZITHROMAX PO SCH (09:11)
[2018-07-02] MEDS: LOVENOX SUB-Q SCH (09:11)
[2018-07-02] MEDS: HALFPRIN EC PO SCH (09:11)
--- NOTE | 2018-07-02 09:16 | Progress Note ---
Assessment and Plan -Acute on chronic hypoxemic respiratory failure -Acute exacerbation COPD -Acute exacerbation CHF -Volume overload likely secondary to #2 - Hypertension -History of rheumatoid arthritis -Acute back pain -History of depression -Continue with supplemental oxygen to keep O2 sats>90% -Bronchodilators -VTE prophylaxis -No evidence of acute infiltrate on CXR, will recommend discontinuation of antibiotics -Slow steroid taper -Diuresis while monitoring renal failure, electrolyte and hemodynamics -Chronic home medications -PT/OT to evalute and treat -NIPPV qhs and prn -Patient has had 4 admissions in the last 6 weeks. Will recommend placement on discharge Subjective Date of service: 07/02/18 Interval history: Patient is seen today for: acute on chronic hypoxemic respiratory failure; HAP; Seen and examined at bedside; 24hour events reviewed; nursing and respiratory care staff consulted; no adverse overnight events reported to me On going shortness of breath, no fevers, no chills, no nausea or vomiting Objective Vital Signs - 12hr 07/02/18 07/02/18 07/02/18 01:47 02:33 03:29 Temperature 97.3 F L Pulse Rate 98 H Pulse Rate [ 85 Throughout] Respiratory 20 Rate Respiratory 16 Rate [ Throughout] Blood Pressure 138/67 Blood Pressure [Left] O2 Sat by Pulse 95 Oximetry 07/02/18 07/02/18 07/02/18 03:39 07:20 08:05 Temperature 98.2 F Pulse Rate 128 H 126 H Pulse Rate [ 88 Throughout] Respiratory 26 H Rate Respiratory 16 Rate [ Throughout] Blood Pressure 158/87 Blood Pressure 158/87 [Left] O2 Sat by Pulse 99 Oximetry 07/02/18 07/02/18 08:48 09:08 Temperature Pulse Rate 115 H Pulse Rate [ Throughout] Respiratory Rate Respiratory Rate [ Throughout] Blood Pressure 160/94 Blood Pressure [Left] O2 Sat by Pulse 97 Oximetry Constitutional: alert, appears uncomfortable, other (mild respiratory distress) Eyes: non-icteric ENT: oropharynx moist Neck: supple, no JVD Effort: mildly labored Ascultation: Bilateral: diminished breath sounds, other (Prolonged expiratory phase.) Cardiovascular: regular rate and rhythm, other (S1,S2, no murmurs, no gallops) Gastrointestinal: normoactive bowel sounds, soft, non-tender Integumentary: normal Extremities: no cyanosis, no edema, no ischemia or petechiae Neurologic: normal mental status, non-focal exam, pupils equal and round, CN II- XII normal Psychiatric: anxious CBC and BMP: 07/02/18 06:06 07/03/18 04:07 ABG, PT/INR, D-dimer: ABG POC ABG pH 7.487 (7.35-7.45) H 06/30/18 19:27 POC ABG pCO2 43.6 (35-45) 06/30/18 19:27 POC ABG pO2 104 (80-105) 06/30/18 19:27 POC ABG HCO3 33.0 (22-26 mml/L) 06/30/18 19:27 POC ABG Total CO2 34 (23-27mmol/L) 06/30/18 19:27 POC ABG O2 Sat 98 06/30/18 19:27 PT/INR, D-dimer 747.37 ng/mlDDU (0-234) H 06/30/18 19:11 Abnormal lab findings: Abnormal Labs 06/30/18 06/30/18 06/30/18 18:49 18:49 19:11 RBC 3.36 L Hgb Hct RDW 17.6 H Lymph % (Auto) 8.0 L [place] % (Auto) 7.8 H Lymph # 0.8 L Seg Neutrophils % 83.0 H Seg Neuts % (Manual) Lymphocytes % (Manual) Seg Neutrophils # 8.5 H Lymphocytes # (Manual) D-Dimer 747.37 H POC ABG pH Sodium 146 H BUN Glucose 06/30/18 07/01/18 07/01/18 19:27 05:53 05:53 RBC 3.15 L Hgb 9.7 L Hct 29.4 L RDW 17.8 H Lymph % (Auto) [place] % (Auto) 10.2 H Lymph # Seg Neutrophils % 72.6 H Seg Neuts % (Manual) Lymphocytes % (Manual) Seg Neutrophils # Lymphocytes # (Manual) D-Dimer POC ABG pH 7.487 H Sodium BUN 20 H Glucose 195 H 07/02/18 07/02/18 06:06 06:06 RBC 3.24 L Hgb 9.9 L Hct 30.1 L RDW 18.1 H Lymph % (Auto) [place] % (Auto) Lymph # Seg Neutrophils % Seg Neuts % (Manual) 79.0 H Lymphocytes % (Manual) 9.0 L Seg Neutrophils # Lymphocytes # (Manual) 0.8 L D-Dimer POC ABG pH Sodium BUN 27 H Glucose 273 H Chest x-ray: image reviewed (no acute infiltrates)
--- NOTE | 2018-07-02 11:28 | Progress Note ---
Assessment and Plan Assessment and plan: 68-year-old -[place] female with history of CHF, rheumatoid arthritis, hypertension, COPD, chronic respiratory failure with continuous home oxygen use of 2 L nasal cannula presented to [facility] ED with complaints of fever, chills, and cough with thick yellow to dark yellow sputum production for the past week. Patient states that her symptoms have progressively gotten worse over the past 2 days. Also, patient complained of back pain related to recent fall. Hip x-ray was unrevealing for any acute abnormalities. Patient will be admitted to the [facility]. Consult has been placed to Dr. Jhaveri. 1. Acute exacerbation COPD, Pneumonia - Patient is on IV Rocephin and azithromycin, DuoNeb, Solu-Medrol, Pulmicort, Mucinex, oxygen support - CT showed small left-sided pneumonia 2. Acute exacerbation CHF - lasix 40 mg twice a day, electrolyte replacement 3. Volume overload likely secondary to #2 4. Acute on chronic respiratory failure 5. Hypertension - Continue losartan, Norvasc and metoprolol 6. History of rheumatoid arthritis 7. Acute back pain 8. History of depression; continue Cymbalta Deconditioned; PT evaluation DVT prophylaxis Disposition; continue inpatient care. Patient's tachycardic. History Interval history: Patient was seen and evaluated this morning, patient is complaining shortness of breath and tiredness. Hospitalist Physical - Physical exam Narrative exam: In respiratory distress. The patient appeared well nourished and normally developed. Vital signs as documented. Head exam is unremarkable. No scleral icterus . Neck is without jugular venous distension, thyromegaly, or carotid bruits. Lungs are clear to auscultation. Cardiac exam reveals regular rate and Rhythm. Tachycardic. Abdominal exam reveals normal bowel sounds. Extremities are nonedematous and both femoral and pedal pulses are normal. BURLAP BAG SEWER: Alert and oriented 3. No focal weakness. - Constitutional Vitals: Temp Pulse Resp BP Pulse Ox 98.2 F 125 H 24 160/94 97 07/02/18 08:05 07/02/18 10:00 07/02/18 10:00 07/02/18 09:08 07/02/18 10:00 Results - Labs CBC & Chem 7: 07/02/18 06:06 07/02/18 06:06 Labs: Laboratory Last Values WBC 9.3 K/mm3 (4.5-11.0) 07/02/18 06:06 RBC 3.24 M/mm3 (3.65-5.03) L 07/02/18 06:06 Hgb 9.9 gm/dl (10.1-14.3) L 07/02/18 06:06 Hct 30.1 % (30.3-42.9) L 07/02/18 06:06 MCV 93 fl (79-97) 07/02/18 06:06 MCH 31 pg (28-32) 07/02/18 06:06 MCHC 33 % (30-34) 07/02/18 06:06 RDW 18.1 % (13.2-15.2) H 07/02/18 06:06 Plt Count 308 K/mm3 (140-440) 07/02/18 06:06 Lymph % (Auto) 15.9 % (13.4-35.0) 07/01/18 05:53 [place] % (Auto) 10.2 % (0.0-7.3) H 07/01/18 05:53 Eos % (Auto) 1.1 % (0.0-4.3) 07/01/18 05:53 Baso % (Auto) 0.2 % (0.0-1.8) 07/01/18 05:53 Lymph # 1.2 K/mm3 (1.2-5.4) 07/01/18 05:53 [place] # 0.8 K/mm3 (0.0-0.8) 07/01/18 05:53 Eos # 0.1 K/mm3 (0.0-0.4) 07/01/18 05:53 Baso # 0.0 K/mm3 (0.0-0.1) 07/01/18 05:53 Add Manual Diff Complete 07/02/18 06:06 Total Counted 100 07/02/18 06:06 Seg Neutrophils % Warehouse [employer] 07/02/18 06:06 Seg Neuts % (Manual) 79.0 % (40.0-70.0) H 07/02/18 06:06 11.0 % 07/02/18 06:06 9.0 % (13.4-35.0) L 07/02/18 06:06 Reactive Lymphs % (Man) 0 % 07/02/18 06:06 1.0 % (0.0-7.3) 07/02/18 06:06 0 % (0.0-4.3) 07/02/18 06:06 0 % (0.0-1.8) 07/02/18 06:06 0 % 07/02/18 06:06 0 % 07/02/18 06:06 0 % 07/02/18 06:06 0 % 07/02/18 06:06 Nucleated RBC % Not Reportable 07/02/18 06:06 Seg Neutrophils # 5.3 K/mm3 (1.8-7.7) 07/01/18 05:53 Seg Neutrophils # Man 7.3 K/mm3 (1.8-7.7) 07/02/18 06:06 Band Neutrophils # 1.0 K/mm3 07/02/18 06:06 0.8 K/mm3 (1.2-5.4) L 07/02/18 06:06 Abs React Lymphs (Man) 0.0 K/mm3 07/02/18 06:06 0.1 K/mm3 (0.0-0.8) 07/02/18 06:06 0.0 K/mm3 (0.0-0.4) 07/02/18 06:06 0.0 K/mm3 (0.0-0.1) 07/02/18 06:06 0.0 K/mm3 07/02/18 06:06 0.0 K/mm3 07/02/18 06:06 0.0 K/mm3 07/02/18 06:06 Blast Cells # 0.0 K/mm3 07/02/18 06:06 WBC Morphology Not Reportable 07/02/18 06:06 Hypersegmented Neuts Not Reportable 07/02/18 06:06 Hyposegmented Neuts Not Reportable 07/02/18 06:06 Hypogranular Neuts Not Reportable 07/02/18 06:06 Not Reportable 07/02/18 06:06 Not Reportable 07/02/18 06:06 Not Reportable 07/02/18 06:06 Not Reportable 07/02/18 06:06 Not Reportable 07/02/18 06:06 Not Reportable 07/02/18 06:06 Appears normal 07/02/18 06:06 Not Reportable 07/02/18 06:06 Plt Clumps, EDTA Not Reportable 07/02/18 06:06 Not Reportable 07/02/18 06:06 Not Reportable 07/02/18 06:06 Not Reportable 07/02/18 06:06 Plt Morphology Comment Not Reportable 07/02/18 06:06 RBC Morphology Not Reportable 07/02/18 06:06 Dimorphic RBCs Not Reportable 07/02/18 06:06 Not Reportable 07/02/18 06:06 Not Reportable 07/02/18 06:06 Not Reportable 07/02/18 06:06 1+ 07/02/18 06:06 Not Reportable 07/02/18 06:06 Not Reportable 07/02/18 06:06 Not Reportable 07/02/18 06:06 Not Reportable 07/02/18 06:06 Not Reportable 07/02/18 06:06 Not Reportable 07/02/18 06:06 Not Reportable 07/02/18 06:06 Not Reportable 07/02/18 06:06 Not Reportable 07/02/18 06:06 Not Reportable 07/02/18 06:06 Not Reportable 07/02/18 06:06 Not Reportable 07/02/18 06:06 Not Reportable 07/02/18 06:06 Not Reportable 07/02/18 06:06 Not Reportable 07/02/18 06:06 Acanthocytes (Spur) Not Reportable 07/02/18 06:06 Rouleaux Not Reportable 07/02/18 06:06 Not Reportable 07/02/18 06:06 Not Reportable 07/02/18 06:06 Not Reportable 07/02/18 06:06 Not Reportable 07/02/18 06:06 Hem Pathologist Commnt No 07/02/18 06:06 747.37 ng/mlDDU (0-234) H 06/30/18 19:11 POC ABG pH 7.487 (7.35-7.45) H 06/30/18 19:27 POC ABG pCO2 43.6 (35-45) 06/30/18 19:27 POC ABG pO2 104 (80-105) 06/30/18 19:27 POC ABG HCO3 33.0 (22-26 mml/L) 06/30/18 19:27 POC ABG Total CO2 34 (23-27mmol/L) 06/30/18 19:27 POC ABG O2 Sat 98 06/30/18 19:27 POC ABG Base Excess 10 ((-2) - (+3)mmol/L) 06/30/18 19:27 28 % 06/30/18 19:27 Sodium 144 mmol/L (137-145) 07/02/18 06:06 Potassium 4.2 mmol/L (3.6-5.0) 07/02/18 06:06 Chloride 101.1 mmol/L (98-107) 07/02/18 06:06 Carbon Dioxide 26 mmol/L (22-30) 07/02/18 06:06 21 mmol/L 07/02/18 06:06 BUN 27 mg/dL (7-17) H 07/02/18 06:06 1.1 mg/dL (0.7-1.2) 07/02/18 06:06 Estimated GFR 59 ml/min 07/02/18 06:06 25 % 07/02/18 06:06 Glucose 273 mg/dL (65-100) H 07/02/18 06:06 Calcium 9.0 mg/dL (8.4-10.2) 07/02/18 06:06 < 0.010 ng/mL (0.00-0.029) 06/30/18 18:49 NT-Pro-B Natriuret Pep 675.4 pg/mL (0-900) 06/30/18 19:11 Active Medications - Current Medications Current Medications: Generic Name Dose Route Start Last Admin Trade Name Freq PRN Reason Stop Dose Admin Acetaminophen 650 mg 06/30/18 23:11 Tylenol PO Q4H PRN Pain MILD(1-3)/Fever >100.5/AMOR Albuterol 2.5 mg 06/30/18 23:11 Proventil IH Q4HRT PRN Shortness Of Breath Albuterol/Ipratropium 1 ampul 07/01/18 02:00 07/02/18 08:50 Duoneb *Not For Prn Use* IH Not Given Q6HRT [facility] Amlodipine Besylate 10 mg 07/01/18 10:00 07/02/18 09:08 Norvasc PO 10 mg DAILY [facility] Administration Aspirin 81 mg 07/01/18 10:00 07/02/18 09:11 Halfprin Ec PO 81 mg QDAY [facility] Administration Azithromycin 500 mg 07/01/18 11:00 07/02/18 09:11 Zithromax PO 500 mg QDAY [facility] Administration Budesonide 0.5 mg 07/01/18 08:00 07/02/18 08:50 Pulmicort IH Not Given Q12HRT [facility] Buspirone HCl 7.5 mg 07/01/18 10:00 07/02/18 09:10 Buspar PO 7.5 mg BID [facility] Administration Docusate Sodium 100 mg 07/01/18 10:00 07/02/18 09:09 Colace PO 100 mg BID [facility] Administration Duloxetine HCl 60 mg 07/01/18 10:00 07/02/18 09:09 Cymbalta PO 60 mg QDAY [facility] Administration Enoxaparin Sodium 40 mg 07/01/18 10:00 07/02/18 09:11 Lovenox SUB-Q 40 mg QDAY [facility] Administration Furosemide 40 mg 07/01/18 10:00 07/02/18 09:11 Lasix IV 40 mg BID [facility] Administration Hydralazine HCl 10 mg 06/30/18 23:23 Apresoline IV Q4H PRN Blood Pressure Ceftriaxone Sodium 1 gm in 50 mls @ 100 mls/hr 07/01/18 11:00 07/02/18 09:11 Rocephin/Ns 1 Gm/50 Ml IV 100 mls/hr Q24HR [facility] Administration Protocol Lorazepam 0.5 mg 07/01/18 20:32 07/02/18 07:17 Ativan PO 0.5 mg Q12HR PRN Administration Anxiety Losartan Potassium 50 mg 07/01/18 10:00 07/02/18 09:09 Cozaar PO 50 mg QDAY [facility] Administration Methylprednisolone Sodium Succinate 125 mg 07/01/18 06:00 07/02/18 07:23 Solu-Medrol IV 125 mg Q8HR [facility] Administration Metoprolol Tartrate 50 mg 07/01/18 08:00 07/02/18 07:20 Lopressor PO 50 mg TID [facility] Administration Ondansetron HCl 4 mg 06/30/18 23:11 Zofran IV Q8H PRN Nausea And Vomiting Oxycodone/Acetaminophen 1 tab 06/30/18 23:11 07/02/18 07:17 Percocet 5/325 PO 1 tab Q6H PRN Administration Pain, Moderate (4-6) Potassium Chloride 40 meq 07/01/18 10:00 07/02/18 09:09 K-Dur PO 40 meq DAILY [facility] Administration Sodium Chloride 10 ml 07/01/18 10:00 07/02/18 09:21 Sodium Chloride Flush Syringe 10 Ml IV 10 ml BID [facility] Administration Sodium Chloride 10 ml 06/30/18 23:11 Sodium Chloride Flush Syringe 10 Ml IV PRN PRN LINE FLUSH
[2018-07-03] MEDS: PERCOCET 5/325 PO PRN ×2 (05:21→11:18)
[2018-07-03 05:22] LABS: Calcium 9.3 mg/dL (8.4-10.2)
[2018-07-03] MEDS: DUONEB *Not for PRN Use IH SCH ×4 (08:14→19:33)
[2018-07-03] MEDS: PULMICORT IH SCH ×2 (08:15→19:33)
[2018-07-03] MEDS: LOPRESSOR PO SCH ×3 (08:21→23:35)
[2018-07-03] MEDS: ZOFRAN IV PRN (08:26)
[2018-07-03] MEDS: SOLU-Medrol IV SCH ×4 (08:43→23:30)
--- NOTE | 2018-07-03 08:50 | Progress Note ---
Assessment and Plan -Acute on chronic hypoxemic respiratory failure -Acute exacerbation COPD -Acute exacerbation CHF -Volume overload likely secondary to #2 - Hypertension -History of rheumatoid arthritis -Acute back pain -History of depression -Continue with supplemental oxygen to keep O2 sats>90% -Bronchodilators -VTE prophylaxis -No evidence of acute infiltrate on CXR, will recommend discontinuation of antibiotics -Slow steroid taper -Diuresis while monitoring renal failure, electrolyte and hemodynamics -Chronic home medications -PT/OT to evalute and treat -NIPPV qhs and prn -Patient has had 4 admissions in the last 6 weeks. Will recommend placement on discharge Subjective Date of service: 07/03/18 Interval history: Patient is seen today for: acute on chronic hypoxemic respiratory failure; HAP; Seen and examined at bedside; 24hour events reviewed; nursing and respiratory care staff consulted; no adverse overnight events reported to me On going shortness of breath, no fevers, no chills, no nausea or vomiting Objective Vital Signs - 12hr 07/02/18 07/03/18 07/03/18 21:36 03:16 08:01 Temperature 98.6 F 98.0 F Pulse Rate 119 H 105 H Pulse Rate [ Throughout] Respiratory 20 22 Rate Respiratory Rate [ Throughout] Blood Pressure 172/82 152/91 175/95 O2 Sat by Pulse 96 95 Oximetry 07/03/18 07/03/18 07/03/18 08:15 08:18 08:21 Temperature Pulse Rate 105 H Pulse Rate [ 116 H Throughout] Respiratory Rate Respiratory 20 Rate [ Throughout] Blood Pressure 175/95 O2 Sat by Pulse 99 Oximetry 07/03/18 08:25 Temperature Pulse Rate Pulse Rate [ 115 H Throughout] Respiratory Rate Respiratory 20 Rate [ Throughout] Blood Pressure O2 Sat by Pulse Oximetry Constitutional: alert, appears uncomfortable, other (mild respiratory distress) Eyes: non-icteric ENT: oropharynx moist Neck: supple, no JVD Effort: mildly labored Ascultation: Bilateral: diminished breath sounds, other (Prolonged expiratory phase.) Cardiovascular: regular rate and rhythm, other (S1,S2, no murmurs, no gallops) Gastrointestinal: normoactive bowel sounds, soft, non-tender Integumentary: normal Extremities: no cyanosis, no edema, no ischemia or petechiae Neurologic: normal mental status, non-focal exam, pupils equal and round, CN II- XII normal Psychiatric: anxious CBC and BMP: 07/02/18 06:06 07/03/18 04:07 ABG, PT/INR, D-dimer: ABG POC ABG pH 7.487 (7.35-7.45) H 06/30/18 19:27 POC ABG pCO2 43.6 (35-45) 06/30/18 19:27 POC ABG pO2 104 (80-105) 06/30/18 19:27 POC ABG HCO3 33.0 (22-26 mml/L) 06/30/18 19:27 POC ABG Total CO2 34 (23-27mmol/L) 06/30/18 19:27 POC ABG O2 Sat 98 06/30/18 19:27 PT/INR, D-dimer 747.37 ng/mlDDU (0-234) H 06/30/18 19:11 Abnormal lab findings: Abnormal Labs 06/30/18 06/30/18 06/30/18 18:49 18:49 19:11 RBC 3.36 L Hgb Hct RDW 17.6 H Lymph % (Auto) 8.0 L [place] % (Auto) 7.8 H Lymph # 0.8 L Seg Neutrophils % 83.0 H Seg Neuts % (Manual) Lymphocytes % (Manual) Seg Neutrophils # 8.5 H Lymphocytes # (Manual) D-Dimer 747.37 H POC ABG pH Sodium 146 H BUN Creatinine Glucose 06/30/18 07/01/18 07/01/18 19:27 05:53 05:53 RBC 3.15 L Hgb 9.7 L Hct 29.4 L RDW 17.8 H Lymph % (Auto) [place] % (Auto) 10.2 H Lymph # Seg Neutrophils % 72.6 H Seg Neuts % (Manual) Lymphocytes % (Manual) Seg Neutrophils # Lymphocytes # (Manual) D-Dimer POC ABG pH 7.487 H Sodium BUN 20 H Creatinine Glucose 195 H 07/02/18 07/02/18 07/03/18 06:06 06:06 04:07 RBC 3.24 L Hgb 9.9 L Hct 30.1 L RDW 18.1 H Lymph % (Auto) [place] % (Auto) Lymph # Seg Neutrophils % Seg Neuts % (Manual) 79.0 H Lymphocytes % (Manual) 9.0 L Seg Neutrophils # Lymphocytes # (Manual) 0.8 L D-Dimer POC ABG pH Sodium BUN 27 H 41 H Creatinine 1.3 H Glucose 273 H 223 H
[2018-07-03] MEDS: LASIX IV SCH ×2 (09:06→23:26)
[2018-07-03] MEDS: ROCEPHIN/NS 1 GM/50 ML 1 GM/50 ML BAG IV SCH (09:06)
[2018-07-03] MEDS: HALFPRIN EC PO SCH (09:06)
[2018-07-03] MEDS: LOVENOX SUB-Q SCH (09:06)
[2018-07-03] MEDS: COLACE PO SCH ×2 (09:07→23:23)
[2018-07-03] MEDS: K-DUR PO SCH (09:07)
[2018-07-03] MEDS: BUSPAR PO SCH ×2 (09:08→23:19)
[2018-07-03] MEDS: COZAAR PO SCH (09:08)
[2018-07-03] MEDS: CYMBALTA PO SCH (09:09)
[2018-07-03] MEDS: ZITHROMAX PO SCH (09:10)
[2018-07-03] MEDS: NORVASC PO SCH (09:10)
[2018-07-03] MEDS: SODIUM CHLORIDE FLUSH SYRINGE 10 ML IV SCH ×3 (09:11→23:32)
--- NOTE | 2018-07-03 10:23 | Discharge Summary ---
Providers - Providers Date of Admission: 06/30/18 23:11 Attending physician: ROSELINE FERNANDEZ MD 06/30/18 23:14 Consult to Physician [CONS] Routine Comment: CARMINE Consulting Provider: MARK HAAS Physician Instructions: WAS NOTIFIED. 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 07/01/18 14:15 Physical Therapy Evaluation and Treat [CONS] Routine Comment: Reason For Exam: Debility 07/01/18 14:17 Occupational Therapy Evaluate and Treat [CONS] Routine Comment: Reason For Exam: Debility 07/03/18 08:49 Consult to Case Management [CONS] Routine Services Needed at Discharge: Other Notified:: Case Management Phone number called:: [phone] Was contact made?: Yes If yes, spoke with:: Jessica Time called:: 08:52 Comment:: Case Management already working on SNF placement Additional Physician Instructions: Discharge planning, recommend [facility] or SNF Primary care physician: VELIA STOCK Hospitalization Reason for admission: Copd exacerbation, pneumonia Condition: Fair Disposition: DC/[place]-03 SNF [facility] Time spent for discharge: 32 minutes - Discharge Diagnoses (1) Acute and chronic respiratory failure Status: Acute (2) Pneumonia Status: Acute (3) Shortness of breath Status: Acute (4) COPD exacerbation Status: Acute (5) Chronic narcotic dependence Status: Acute (6) Pulmonary hypertension, moderate to severe Status: Chronic Core Measure Documentation - Palliative Care Palliative Care/ Comfort Measures: Not Applicable - Core Measures Any of the following diagnoses?: none Exam - Physical Exam Narrative exam: In respiratory distress. The patient appeared well nourished and normally developed. Vital signs as documented. Head exam is unremarkable. No scleral icterus . Neck is without jugular venous distension, thyromegaly, or carotid bruits. Lungs are clear to auscultation. Cardiac exam reveals regular rate and Rhythm. Tachycardic. Abdominal exam reveals normal bowel sounds. Extremities are nonedematous and both femoral and pedal pulses are normal. 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 No focal weakness. - Constitutional Vitals: Temp Pulse Resp BP Pulse Ox 98.0 F 125 H 20 144/71 99 07/03/18 08:01 07/03/18 09:45 07/03/18 08:25 07/03/18 09:10 07/03/18 08:18 Plan Follow up with: VELIA STOCK MD [Primary Care Provider] - 3-5 Days Prescriptions: cefUROXime [Ceftin] 250 mg PO Q12H #10 tablet predniSONE [Deltasone] 30 mg PO QDAY #5 tab
[2018-07-03] MEDS: ATIVAN PO PRN (10:26)
--- NOTE | 2018-07-03 14:08 | Progress Note ---
Assessment and Plan Assessment and plan: 68-year-old -[place] female with history of CHF, rheumatoid arthritis, hypertension, COPD, chronic respiratory failure with continuous home oxygen use of 2 L nasal cannula presented to [facility] ED with complaints of fever, chills, and cough with thick yellow to dark yellow sputum production for the past week. Patient states that her symptoms have progressively gotten worse over the past 2 days. Also, patient complained of back pain related to recent fall. Hip x-ray was unrevealing for any acute abnormalities. Patient will be admitted to the [facility]. Consult has been placed to Dr. Jhaveri. 1. Acute exacerbation COPD, Pneumonia - Patient is on IV Rocephin and azithromycin, DuoNeb, Solu-Medrol, Pulmicort, Mucinex, oxygen support - CT showed small left-sided pneumonia 2. Acute exacerbation CHF - lasix 40 mg twice a day, electrolyte replacement 3. Volume overload likely secondary to #2 4. Acute on chronic respiratory failure 5. Hypertension - Continue losartan, Norvasc and metoprolol 6. History of rheumatoid arthritis 7. Acute back pain 8. History of depression; continue Cymbalta Deconditioned; PT evaluation DVT prophylaxis Disposition; patient was discharged and updated her discharge. Trying to get SNF but she doesn't to give her bank and other necessary information. I DC her pain percocet. Patient was not in pain or distress. Her son said she has been shopping around from hospital to hospital for pain medicine. - Patient Problems (1) Acute and chronic respiratory failure Current Visit: Yes Status: Acute (2) Pneumonia Current Visit: Yes Status: Acute (3) Shortness of breath Current Visit: Yes Status: Acute (4) COPD exacerbation Current Visit: No Status: Acute (5) Chronic narcotic dependence Current Visit: No Status: Acute (6) Pulmonary hypertension, moderate to severe Current Visit: No Status: Chronic History Interval history: Patient was seen and evaluated this morning, patient was breathing comfortably. No complaints. Hospitalist Physical - Physical exam Narrative exam: In respiratory distress. The patient appeared well nourished and normally developed. Vital signs as documented. Head exam is unremarkable. No scleral icterus . Neck is without jugular venous distension, thyromegaly, or carotid bruits. Lungs are clear to auscultation. Cardiac exam reveals regular rate and Rhythm. Tachycardic. Abdominal exam reveals normal bowel sounds. Extremities are nonedematous and both femoral and pedal pulses are normal. 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 No focal weakness. - Constitutional Vitals: Temp Pulse Resp BP Pulse Ox 98.0 F 125 H 20 144/71 99 07/03/18 08:01 07/03/18 10:00 07/03/18 10:00 07/03/18 09:10 07/03/18 10:00 Results - Labs CBC & Chem 7: 07/02/18 06:06 07/03/18 04:07 Labs: Laboratory Last Values WBC 9.3 K/mm3 (4.5-11.0) 07/02/18 06:06 RBC 3.24 M/mm3 (3.65-5.03) L 07/02/18 06:06 Hgb 9.9 gm/dl (10.1-14.3) L 07/02/18 06:06 Hct 30.1 % (30.3-42.9) L 07/02/18 06:06 MCV 93 fl (79-97) 07/02/18 06:06 MCH 31 pg (28-32) 07/02/18 06:06 MCHC 33 % (30-34) 07/02/18 06:06 RDW 18.1 % (13.2-15.2) H 07/02/18 06:06 Plt Count 308 K/mm3 (140-440) 07/02/18 06:06 Lymph % (Auto) 15.9 % (13.4-35.0) 07/01/18 05:53 [place] % (Auto) 10.2 % (0.0-7.3) H 07/01/18 05:53 Eos % (Auto) 1.1 % (0.0-4.3) 07/01/18 05:53 Baso % (Auto) 0.2 % (0.0-1.8) 07/01/18 05:53 Lymph # 1.2 K/mm3 (1.2-5.4) 07/01/18 05:53 [place] # 0.8 K/mm3 (0.0-0.8) 07/01/18 05:53 Eos # 0.1 K/mm3 (0.0-0.4) 07/01/18 05:53 Baso # 0.0 K/mm3 (0.0-0.1) 07/01/18 05:53 Add Manual Diff Complete 07/02/18 06:06 Total Counted 100 07/02/18 06:06 Seg Neutrophils % Student Counsellor 07/02/18 06:06 Seg Neuts % (Manual) 79.0 % (40.0-70.0) H 07/02/18 06:06 11.0 % 07/02/18 06:06 9.0 % (13.4-35.0) L 07/02/18 06:06 Reactive Lymphs % (Man) 0 % 07/02/18 06:06 1.0 % (0.0-7.3) 07/02/18 06:06 0 % (0.0-4.3) 07/02/18 06:06 0 % (0.0-1.8) 07/02/18 06:06 0 % 07/02/18 06:06 0 % 07/02/18 06:06 0 % 07/02/18 06:06 0 % 07/02/18 06:06 Nucleated RBC % Not Reportable 07/02/18 06:06 Seg Neutrophils # 5.3 K/mm3 (1.8-7.7) 07/01/18 05:53 Seg Neutrophils # Man 7.3 K/mm3 (1.8-7.7) 07/02/18 06:06 Band Neutrophils # 1.0 K/mm3 07/02/18 06:06 0.8 K/mm3 (1.2-5.4) L 07/02/18 06:06 Abs React Lymphs (Man) 0.0 K/mm3 07/02/18 06:06 0.1 K/mm3 (0.0-0.8) 07/02/18 06:06 0.0 K/mm3 (0.0-0.4) 07/02/18 06:06 0.0 K/mm3 (0.0-0.1) 07/02/18 06:06 0.0 K/mm3 07/02/18 06:06 0.0 K/mm3 07/02/18 06:06 0.0 K/mm3 07/02/18 06:06 Blast Cells # 0.0 K/mm3 07/02/18 06:06 WBC Morphology Not Reportable 07/02/18 06:06 Hypersegmented Neuts Not Reportable 07/02/18 06:06 Hyposegmented Neuts Not Reportable 07/02/18 06:06 Hypogranular Neuts Not Reportable 07/02/18 06:06 Not Reportable 07/02/18 06:06 Not Reportable 07/02/18 06:06 Not Reportable 07/02/18 06:06 Not Reportable 07/02/18 06:06 Not Reportable 07/02/18 06:06 Not Reportable 07/02/18 06:06 Appears normal 07/02/18 06:06 Not Reportable 07/02/18 06:06 Plt Clumps, EDTA Not Reportable 07/02/18 06:06 Not Reportable 07/02/18 06:06 Not Reportable 07/02/18 06:06 Not Reportable 07/02/18 06:06 Plt Morphology Comment Not Reportable 07/02/18 06:06 RBC Morphology Not Reportable 07/02/18 06:06 Dimorphic RBCs Not Reportable 07/02/18 06:06 Not Reportable 07/02/18 06:06 Not Reportable 07/02/18 06:06 Not Reportable 07/02/18 06:06 1+ 07/02/18 06:06 Not Reportable 07/02/18 06:06 Not Reportable 07/02/18 06:06 Not Reportable 07/02/18 06:06 Not Reportable 07/02/18 06:06 Not Reportable 07/02/18 06:06 Not Reportable 07/02/18 06:06 Not Reportable 07/02/18 06:06 Not Reportable 07/02/18 06:06 Not Reportable 07/02/18 06:06 Not Reportable 07/02/18 06:06 Not Reportable 07/02/18 06:06 Not Reportable 07/02/18 06:06 Not Reportable 07/02/18 06:06 Not Reportable 07/02/18 06:06 Not Reportable 07/02/18 06:06 Acanthocytes (Spur) Not Reportable 07/02/18 06:06 Rouleaux Not Reportable 07/02/18 06:06 Not Reportable 07/02/18 06:06 Not Reportable 07/02/18 06:06 Not Reportable 07/02/18 06:06 Not Reportable 07/02/18 06:06 Hem Pathologist Commnt No 07/02/18 06:06 747.37 ng/mlDDU (0-234) H 06/30/18 19:11 POC ABG pH 7.487 (7.35-7.45) H 06/30/18 19:27 POC ABG pCO2 43.6 (35-45) 06/30/18 19:27 POC ABG pO2 104 (80-105) 06/30/18 19:27 POC ABG HCO3 33.0 (22-26 mml/L) 06/30/18 19:27 POC ABG Total CO2 34 (23-27mmol/L) 06/30/18 19:27 POC ABG O2 Sat 98 06/30/18 19:27 POC ABG Base Excess 10 ((-2) - (+3)mmol/L) 06/30/18 19:27 28 % 06/30/18 19:27 Sodium 145 mmol/L (137-145) 07/03/18 04:07 Potassium 3.6 mmol/L (3.6-5.0) 07/03/18 04:07 Chloride 102.3 mmol/L (98-107) 07/03/18 04:07 Carbon Dioxide 28 mmol/L (22-30) 07/03/18 04:07 18 mmol/L 07/03/18 04:07 BUN 41 mg/dL (7-17) H 07/03/18 04:07 1.3 mg/dL (0.7-1.2) H 07/03/18 04:07 Estimated GFR 49 ml/min 07/03/18 04:07 32 % 07/03/18 04:07 Glucose 223 mg/dL (65-100) H 07/03/18 04:07 Calcium 9.3 mg/dL (8.4-10.2) 07/03/18 04:07 < 0.010 ng/mL (0.00-0.029) 06/30/18 18:49 NT-Pro-B Natriuret Pep 675.4 pg/mL (0-900) 06/30/18 19:11 Active Medications - Current Medications Current Medications: Generic Name Dose Route Start Last Admin Trade Name Freq PRN Reason Stop Dose Admin Acetaminophen 650 mg 06/30/18 23:11 Tylenol PO Q4H PRN Pain MILD(1-3)/Fever >100.5/AMOR Albuterol 2.5 mg 06/30/18 23:11 Proventil IH Q4HRT PRN Shortness Of Breath Albuterol/Ipratropium 1 ampul 07/01/18 02:00 07/03/18 08:15 Duoneb *Not For Prn Use* IH 1 ampul Q6HRT ANGELES Administration Amlodipine Besylate 10 mg 07/01/18 10:00 07/03/18 09:10 Norvasc PO 10 mg DAILY ANGELES Administration Aspirin 81 mg 07/01/18 10:00 07/03/18 09:06 Halfprin Ec PO 81 mg QDAY ANGELES Administration Azithromycin 500 mg 07/01/18 11:00 07/03/18 09:10 Zithromax PO 500 mg QDAY ANGELES Administration Budesonide 0.5 mg 07/01/18 08:00 07/03/18 08:15 Pulmicort IH 0.5 mg Q12HRT ANGELES Administration Buspirone HCl 7.5 mg 07/01/18 10:00 07/03/18 09:08 Buspar PO 7.5 mg BID ANGELES Administration Docusate Sodium 100 mg 07/01/18 10:00 07/03/18 09:07 Colace PO 100 mg BID ANGELES Administration Duloxetine HCl 60 mg 07/01/18 10:00 07/03/18 09:09 Cymbalta PO 60 mg QDAY ANGELES Administration Enoxaparin Sodium 40 mg 07/01/18 10:00 07/03/18 09:06 Lovenox SUB-Q 40 mg QDAY ANGELES Administration Furosemide 40 mg 07/01/18 10:00 07/03/18 09:06 Lasix IV 40 mg BID ANGELES Administration Hydralazine HCl 10 mg 06/30/18 23:23 Apresoline IV Q4H PRN Blood Pressure Ceftriaxone Sodium 1 gm in 50 mls @ 100 mls/hr 07/01/18 11:00 07/03/18 09:06 Rocephin/Ns 1 Gm/50 Ml IV 100 mls/hr Q24HR ANGELES Administration Protocol Lorazepam 0.5 mg 07/01/18 20:32 07/03/18 10:26 Ativan PO 0.5 mg Q12HR PRN Administration Anxiety Losartan Potassium 50 mg 07/01/18 10:00 07/03/18 09:08 Cozaar PO 50 mg QDAY ANGELES Administration Methylprednisolone Sodium Succinate 60 mg 07/03/18 09:00 07/03/18 08:43 Solu-Medrol IV Not Given Q8HR ANGELES Metoprolol Tartrate 50 mg 07/01/18 08:00 07/03/18 08:21 Lopressor PO 50 mg TID ANGELES Administration Ondansetron HCl 4 mg 06/30/18 23:11 07/03/18 08:26 Zofran IV 4 mg Q8H PRN Administration Nausea And Vomiting Potassium Chloride 40 meq 07/01/18 10:00 07/03/18 09:07 K-Dur PO 40 meq DAILY ANGELES Administration Sodium Chloride 10 ml 07/01/18 10:00 07/03/18 09:11 Sodium Chloride Flush Syringe 10 Ml IV 10 ml BID ANGELES Administration Sodium Chloride 10 ml 06/30/18 23:11 Sodium Chloride Flush Syringe 10 Ml IV PRN PRN LINE FLUSH
[2018-07-04] MEDS: DUONEB *Not for PRN Use IH SCH ×3 (02:09→13:29)
[2018-07-04] MEDS: PULMICORT IH SCH ×2 (07:36→19:38)
--- NOTE | 2018-07-04 09:23 | Progress Note ---
Assessment and Plan Acute on chronic hypoxemic respiratory failure Acute exacerbation COPD Acute exacerbation CHF Volume overload likely secondary to #2 Hypertension History of rheumatoid arthritis Acute back pain History of depression - Continue with supplemental oxygen to keep O2 sats>90% - continue bronchodilators with pulmonary hygiene per RT - Add Brovana & change scheduled duonebs to prn albuterol - continue VTE prophylaxis - No evidence of acute infiltrate on CXR, will recommend discontinuation of antibiotics - Slow steroid taper - continue diuresis while monitoring renal failure, electrolyte and hemodynamics - Chronic home medications - PT/OT to evalute and treat - NIPPV qhs and prn - Patient has had 4 admissions in the last 6 weeks. Will recommend placement on discharge ... tentatively to go to rehab facility in am per patient ... re-evaluate in am & prn Subjective Date of service: 07/04/18 Principal diagnosis: Ac on ch hypoxemic resp failure; AE-COPD; HAP; Acute exacerbation CHF Interval history: Patient is seen today for: Acute on chronic hypoxemic respiratory failure; HAP Seen and examined at bedside; 24hour events reviewed; nursing and respiratory care staff consulted; no adverse overnight events reported to me; resting peacefully in bed; feels a little better; still with FAUST; denies acute chest pains or palpitations; no hemoptysis; No N/V/F/C Objective Vital Signs - 12hr 07/03/18 07/04/18 07/04/18 23:35 02:09 02:16 Temperature Pulse Rate 118 H Pulse Rate [ Anterior Throughout] Pulse Rate [ From Monitor] Pulse Rate [ 94 H 106 H Throughout] Respiratory Rate Respiratory Rate [Anterior Throughout] Respiratory 16 16 Rate [ Throughout] Blood Pressure 132/72 O2 Sat by Pulse Oximetry 07/04/18 07/04/18 07/04/18 02:46 07:35 07:36 Temperature 98.7 F 98.9 F Pulse Rate 100 H 108 H Pulse Rate [ Anterior Throughout] Pulse Rate [ From Monitor] Pulse Rate [ 106 H Throughout] Respiratory 18 20 Rate Respiratory Rate [Anterior Throughout] Respiratory 22 Rate [ Throughout] Blood Pressure 148/88 187/101 O2 Sat by Pulse 98 96 Oximetry 07/04/18 07/04/18 07:51 08:10 Temperature Pulse Rate Pulse Rate [ 107 H Anterior Throughout] Pulse Rate [ 108 H From Monitor] Pulse Rate [ Throughout] Respiratory Rate Respiratory 20 Rate [Anterior Throughout] Respiratory Rate [ Throughout] Blood Pressure O2 Sat by Pulse Oximetry Constitutional: no acute distress, alert, other (elderly looking AAF, normocephalic and atraumatic with mild respiratory distress) Eyes: non-icteric ENT: oropharynx moist, other (mallampati 3) Neck: supple, no JVD, other (large neck circumference) Effort: mildly labored Ascultation: Bilateral: diminished breath sounds, rhonchi (scant in bases), other (Prolonged expiratory phase.) Percussion: Bilateral: not dull Cardiovascular: regular rate and rhythm, other (S1,S2, no murmurs, no gallops) Gastrointestinal: normoactive bowel sounds, soft, non-tender, non-distended Integumentary: normal Extremities: no cyanosis, no edema, pulses normal, no ischemia or petechiae Neurologic: normal mental status, non-focal exam, pupils equal and round, CN II- XII normal, motor strength normal and Psychiatric: mood appropriate, affect normal CBC and BMP: 07/02/18 06:06 07/03/18 04:07 ABG, PT/INR, D-dimer: ABG POC ABG pH 7.487 (7.35-7.45) H 06/30/18 19:27 POC ABG pCO2 43.6 (35-45) 06/30/18 19:27 POC ABG pO2 104 (80-105) 06/30/18 19:27 POC ABG HCO3 33.0 (22-26 mml/L) 06/30/18 19:27 POC ABG Total CO2 34 (23-27mmol/L) 06/30/18 19:27 POC ABG O2 Sat 98 06/30/18 19:27 PT/INR, D-dimer 747.37 ng/mlDDU (0-234) H 06/30/18 19:11 Abnormal lab findings: Abnormal Labs 06/30/18 06/30/18 06/30/18 18:49 18:49 19:11 RBC 3.36 L Hgb Hct RDW 17.6 H Lymph % (Auto) 8.0 L [place] % (Auto) 7.8 H Lymph # 0.8 L Seg Neutrophils % 83.0 H Seg Neuts % (Manual) Lymphocytes % (Manual) Seg Neutrophils # 8.5 H Lymphocytes # (Manual) D-Dimer 747.37 H POC ABG pH Sodium 146 H BUN Creatinine Glucose 06/30/18 07/01/18 07/01/18 19:27 05:53 05:53 RBC 3.15 L Hgb 9.7 L Hct 29.4 L RDW 17.8 H Lymph % (Auto) [place] % (Auto) 10.2 H Lymph # Seg Neutrophils % 72.6 H Seg Neuts % (Manual) Lymphocytes % (Manual) Seg Neutrophils # Lymphocytes # (Manual) D-Dimer POC ABG pH 7.487 H Sodium BUN 20 H Creatinine Glucose 195 H 07/02/18 07/02/18 07/03/18 06:06 06:06 04:07 RBC 3.24 L Hgb 9.9 L Hct 30.1 L RDW 18.1 H Lymph % (Auto) [place] % (Auto) Lymph # Seg Neutrophils % Seg Neuts % (Manual) 79.0 H Lymphocytes % (Manual) 9.0 L Seg Neutrophils # Lymphocytes # (Manual) 0.8 L D-Dimer POC ABG pH Sodium BUN 27 H 41 H Creatinine 1.3 H Glucose 273 H 223 H Chest x-ray: image reviewed (COPD with flattened R. Hemidiaphragm; no focal infiltrate; + cardiomegaly) Allied health notes reviewed: nursing
[2018-07-04] MEDS: LOVENOX SUB-Q SCH (10:10)
[2018-07-04] MEDS: K-DUR PO SCH (10:10)
[2018-07-04] MEDS: ROCEPHIN/NS 1 GM/50 ML 1 GM/50 ML BAG IV SCH (10:10)
[2018-07-04] MEDS: LASIX IV SCH ×2 (10:10→22:07)
[2018-07-04] MEDS: CYMBALTA PO SCH (10:10)
[2018-07-04] MEDS: BUSPAR PO SCH ×2 (10:10→22:08)
[2018-07-04] MEDS: LOPRESSOR PO SCH ×3 (10:11→20:56)
[2018-07-04] MEDS: ZITHROMAX PO SCH (10:11)
[2018-07-04] MEDS: HALFPRIN EC PO SCH (10:11)
[2018-07-04] MEDS: DELTASONE PO SCH (10:11)
[2018-07-04] MEDS: COLACE PO SCH ×2 (10:11→22:08)
[2018-07-04] MEDS: NORVASC PO SCH (10:12)
[2018-07-04] MEDS: SODIUM CHLORIDE FLUSH SYRINGE 10 ML IV SCH ×2 (10:12→22:10)
[2018-07-04] MEDS: SUBOXONE 2 MG-0.5 MG SL SCH (10:14)
--- NOTE | 2018-07-04 10:14 | Progress Note ---
Assessment and Plan Assessment and plan: 68-year-old -Surinamese female with history of CHF, rheumatoid arthritis, hypertension, COPD, chronic respiratory failure with continuous home oxygen use of 2 L nasal cannula presented to [facility] ED with complaints of fever, chills, and cough with thick yellow to dark yellow sputum production for the past week. Patient states that her symptoms have progressively gotten worse over the past 2 days. Also, patient complained of back pain related to recent fall. Hip x-ray was unrevealing for any acute abnormalities. Patient will be admitted to the [facility]. Consult has been placed to Dr. Jhaveri. 1. Acute exacerbation COPD, Pneumonia - Patient is on IV Rocephin and azithromycin, DuoNeb, Pulmicort, Mucinex, oxygen support - Solu-Medrol changed to by mouth prednisone 07/04/18 - CT showed small left-sided pneumonia 2. Acute exacerbation CHF - lasix 40 mg twice a day, electrolyte replacement 3. Volume overload likely secondary to #2 4. Acute on chronic respiratory failure 5. Hypertension - Continue losartan, Norvasc and metoprolol 6. History of rheumatoid arthritis 7. Acute back pain 8. History of depression; continue Cymbalta Deconditioned; PT evaluation and recommended rehabilitation placement Chronic pain; buprenorphine. Weaned of [place] Disposition; pending rehabilitation placement. Case management and oncology social work aware. - Patient Problems (1) Acute and chronic respiratory failure Current Visit: Yes Status: Acute (2) Pneumonia Current Visit: Yes Status: Acute (3) Shortness of breath Current Visit: Yes Status: Acute (4) COPD exacerbation Current Visit: No Status: Acute (5) Chronic narcotic dependence Current Visit: No Status: Acute (6) Pulmonary hypertension, moderate to severe Current Visit: No Status: Chronic History Interval history: Patient was seen and evaluated this morning, patient was breathing comfortably. Patient said she wants to go to rehabilitation. Hospitalist Physical - Physical exam Narrative exam: In respiratory distress. The patient appeared well nourished and normally developed. Vital signs as documented. Head exam is unremarkable. No scleral icterus . Neck is without jugular venous distension, thyromegaly, or carotid bruits. Lungs are clear to auscultation. Cardiac exam reveals regular rate and Rhythm. Tachycardic. Abdominal exam reveals normal bowel sounds. Extremities are nonedematous and both femoral and pedal pulses are normal. EXPERIMENTAL MACHINIST: Alert and oriented 3. No focal weakness. - Constitutional Vitals: Temp Pulse Resp BP Pulse Ox 98.9 F 107 H 20 187/101 96 07/04/18 07:35 07/04/18 08:10 07/04/18 08:10 07/04/18 07:35 07/04/18 07:35 Results - Labs CBC & Chem 7: 07/02/18 06:06 07/03/18 04:07 Labs: Laboratory Last Values WBC 9.3 K/mm3 (4.5-11.0) 07/02/18 06:06 RBC 3.24 M/mm3 (3.65-5.03) L 07/02/18 06:06 Hgb 9.9 gm/dl (10.1-14.3) L 07/02/18 06:06 Hct 30.1 % (30.3-42.9) L 07/02/18 06:06 MCV 93 fl (79-97) 07/02/18 06:06 MCH 31 pg (28-32) 07/02/18 06:06 MCHC 33 % (30-34) 07/02/18 06:06 RDW 18.1 % (13.2-15.2) H 07/02/18 06:06 Plt Count 308 K/mm3 (140-440) 07/02/18 06:06 Lymph % (Auto) 15.9 % (13.4-35.0) 07/01/18 05:53 [place] % (Auto) 10.2 % (0.0-7.3) H 07/01/18 05:53 Eos % (Auto) 1.1 % (0.0-4.3) 07/01/18 05:53 Baso % (Auto) 0.2 % (0.0-1.8) 07/01/18 05:53 Lymph # 1.2 K/mm3 (1.2-5.4) 07/01/18 05:53 [place] # 0.8 K/mm3 (0.0-0.8) 07/01/18 05:53 Eos # 0.1 K/mm3 (0.0-0.4) 07/01/18 05:53 Baso # 0.0 K/mm3 (0.0-0.1) 07/01/18 05:53 Add Manual Diff Complete 07/02/18 06:06 Total Counted 100 07/02/18 06:06 Seg Neutrophils % Early Childhood Services Coordinator 07/02/18 06:06 Seg Neuts % (Manual) 79.0 % (40.0-70.0) H 07/02/18 06:06 11.0 % 07/02/18 06:06 9.0 % (13.4-35.0) L 07/02/18 06:06 Reactive Lymphs % (Man) 0 % 07/02/18 06:06 1.0 % (0.0-7.3) 07/02/18 06:06 0 % (0.0-4.3) 07/02/18 06:06 0 % (0.0-1.8) 07/02/18 06:06 0 % 07/02/18 06:06 0 % 07/02/18 06:06 0 % 07/02/18 06:06 0 % 07/02/18 06:06 Nucleated RBC % Not Reportable 07/02/18 06:06 Seg Neutrophils # 5.3 K/mm3 (1.8-7.7) 07/01/18 05:53 Seg Neutrophils # Man 7.3 K/mm3 (1.8-7.7) 07/02/18 06:06 Band Neutrophils # 1.0 K/mm3 07/02/18 06:06 0.8 K/mm3 (1.2-5.4) L 07/02/18 06:06 Abs React Lymphs (Man) 0.0 K/mm3 07/02/18 06:06 0.1 K/mm3 (0.0-0.8) 07/02/18 06:06 0.0 K/mm3 (0.0-0.4) 07/02/18 06:06 0.0 K/mm3 (0.0-0.1) 07/02/18 06:06 0.0 K/mm3 07/02/18 06:06 0.0 K/mm3 07/02/18 06:06 0.0 K/mm3 07/02/18 06:06 Blast Cells # 0.0 K/mm3 07/02/18 06:06 WBC Morphology Not Reportable 07/02/18 06:06 Hypersegmented Neuts Not Reportable 07/02/18 06:06 Hyposegmented Neuts Not Reportable 07/02/18 06:06 Hypogranular Neuts Not Reportable 07/02/18 06:06 Not Reportable 07/02/18 06:06 Not Reportable 07/02/18 06:06 Not Reportable 07/02/18 06:06 Not Reportable 07/02/18 06:06 Not Reportable 07/02/18 06:06 Not Reportable 07/02/18 06:06 Appears normal 07/02/18 06:06 Not Reportable 07/02/18 06:06 Plt Clumps, EDTA Not Reportable 07/02/18 06:06 Not Reportable 07/02/18 06:06 Not Reportable 07/02/18 06:06 Not Reportable 07/02/18 06:06 Plt Morphology Comment Not Reportable 07/02/18 06:06 RBC Morphology Not Reportable 07/02/18 06:06 Dimorphic RBCs Not Reportable 07/02/18 06:06 Not Reportable 07/02/18 06:06 Not Reportable 07/02/18 06:06 Not Reportable 07/02/18 06:06 1+ 07/02/18 06:06 Not Reportable 07/02/18 06:06 Not Reportable 07/02/18 06:06 Not Reportable 07/02/18 06:06 Not Reportable 07/02/18 06:06 Not Reportable 07/02/18 06:06 Not Reportable 07/02/18 06:06 Not Reportable 07/02/18 06:06 Not Reportable 07/02/18 06:06 Not Reportable 07/02/18 06:06 Not Reportable 07/02/18 06:06 Not Reportable 07/02/18 06:06 Not Reportable 07/02/18 06:06 Not Reportable 07/02/18 06:06 Not Reportable 07/02/18 06:06 Not Reportable 07/02/18 06:06 Acanthocytes (Spur) Not Reportable 07/02/18 06:06 Rouleaux Not Reportable 07/02/18 06:06 Not Reportable 07/02/18 06:06 Not Reportable 07/02/18 06:06 Not Reportable 07/02/18 06:06 Not Reportable 07/02/18 06:06 Hem Pathologist Commnt No 07/02/18 06:06 747.37 ng/mlDDU (0-234) H 06/30/18 19:11 POC ABG pH 7.487 (7.35-7.45) H 06/30/18 19:27 POC ABG pCO2 43.6 (35-45) 06/30/18 19:27 POC ABG pO2 104 (80-105) 06/30/18 19:27 POC ABG HCO3 33.0 (22-26 mml/L) 06/30/18 19:27 POC ABG Total CO2 34 (23-27mmol/L) 06/30/18 19:27 POC ABG O2 Sat 98 06/30/18 19:27 POC ABG Base Excess 10 ((-2) - (+3)mmol/L) 06/30/18 19:27 28 % 06/30/18 19:27 Sodium 145 mmol/L (137-145) 07/03/18 04:07 Potassium 3.6 mmol/L (3.6-5.0) 07/03/18 04:07 Chloride 102.3 mmol/L (98-107) 07/03/18 04:07 Carbon Dioxide 28 mmol/L (22-30) 07/03/18 04:07 18 mmol/L 07/03/18 04:07 BUN 41 mg/dL (7-17) H 07/03/18 04:07 1.3 mg/dL (0.7-1.2) H 07/03/18 04:07 Estimated GFR 49 ml/min 07/03/18 04:07 32 % 07/03/18 04:07 Glucose 223 mg/dL (65-100) H 07/03/18 04:07 Calcium 9.3 mg/dL (8.4-10.2) 07/03/18 04:07 < 0.010 ng/mL (0.00-0.029) 06/30/18 18:49 NT-Pro-B Natriuret Pep 675.4 pg/mL (0-900) 06/30/18 19:11 Active Medications - Current Medications Current Medications: Generic Name Dose Route Start Last Admin Trade Name Freq PRN Reason Stop Dose Admin Acetaminophen 650 mg 06/30/18 23:11 Tylenol PO Q4H PRN Pain MILD(1-3)/Fever >100.5/AMOR Albuterol 2.5 mg 06/30/18 23:11 Proventil IH Q4HRT PRN Shortness Of Breath Albuterol/Ipratropium 1 ampul 07/01/18 02:00 07/04/18 07:36 Duoneb *Not For Prn Use* IH 1 ampul Q6HRT ANGELES Administration Amlodipine Besylate 10 mg 07/01/18 10:00 07/03/18 09:10 Norvasc PO 10 mg DAILY ANGELES Administration Aspirin 81 mg 07/01/18 10:00 07/03/18 09:06 Halfprin Ec PO 81 mg QDAY ANGELES Administration Azithromycin 500 mg 07/01/18 11:00 07/03/18 09:10 Zithromax PO 500 mg QDAY ANGELES Administration Budesonide 0.5 mg 07/01/18 08:00 07/04/18 07:36 Pulmicort IH 0.5 mg Q12HRT ANGELES Administration Buprenorphine HCl 2 each 07/04/18 10:00 Suboxone 2 Mg-0.5 Mg SL QDAY ANGELES Buspirone HCl 7.5 mg 07/01/18 10:00 07/03/18 23:19 Buspar PO 7.5 mg BID ANGELES Administration Docusate Sodium 100 mg 07/01/18 10:00 07/03/18 23:23 Colace PO 100 mg BID ANGELES Administration Duloxetine HCl 60 mg 07/01/18 10:00 07/03/18 09:09 Cymbalta PO 60 mg QDAY ANGELES Administration Enoxaparin Sodium 40 mg 07/01/18 10:00 07/03/18 09:06 Lovenox SUB-Q 40 mg QDAY ANGELES Administration Furosemide 40 mg 07/01/18 10:00 07/03/18 23:26 Lasix IV 40 mg BID ANGELES Administration Hydralazine HCl 10 mg 06/30/18 23:23 Apresoline IV Q4H PRN Blood Pressure Ceftriaxone Sodium 1 gm in 50 mls @ 100 mls/hr 07/01/18 11:00 07/03/18 09:06 Rocephin/Ns 1 Gm/50 Ml IV 100 mls/hr Q24HR ANGELES Administration Protocol Lorazepam 0.5 mg 07/01/18 20:32 07/03/18 10:26 Ativan PO 0.5 mg Q12HR PRN Administration Anxiety Losartan Potassium 50 mg 07/01/18 10:00 07/03/18 09:08 Cozaar PO 50 mg QDAY ANGELES Administration Metoprolol Tartrate 50 mg 07/01/18 08:00 07/03/18 23:35 Lopressor PO 50 mg TID ANGELES Administration Ondansetron HCl 4 mg 06/30/18 23:11 07/03/18 08:26 Zofran IV 4 mg Q8H PRN Administration Nausea And Vomiting Potassium Chloride 40 meq 07/01/18 10:00 07/03/18 09:07 K-Dur PO 40 meq DAILY ANGELES Administration Prednisone 40 mg 07/04/18 10:00 Deltasone PO QDAY ANGELES Sodium Chloride 10 ml 07/01/18 10:00 07/03/18 23:32 Sodium Chloride Flush Syringe 10 Ml IV 10 ml BID ANGELES Administration Sodium Chloride 10 ml 06/30/18 23:11 Sodium Chloride Flush Syringe 10 Ml IV PRN PRN LINE FLUSH
[2018-07-04] MEDS: COZAAR PO SCH (14:12)
[2018-07-04] MEDS: ATIVAN PO PRN (14:13)
[2018-07-04] MEDS: BROVANA NEBU IH SCH (19:38)
[2018-07-05] MEDS: BROVANA NEBU IH SCH ×2 (08:02→19:43)
[2018-07-05] MEDS: PULMICORT IH SCH ×2 (08:02→19:43)
--- NOTE | 2018-07-05 08:09 | Progress Note ---
Assessment and Plan Assessment and plan: 68-year-old -English female with history of CHF, rheumatoid arthritis, hypertension, COPD, chronic respiratory failure with continuous home oxygen use of 2 L nasal cannula presented to [facility] ED with complaints of fever, chills, and cough with thick yellow to dark yellow sputum production x 1 week. Also, patient complained of back pain related to recent fall. Hip x-ray was unrevealing for any acute abnormalities. 1. Acute exacerbation COPD, Pneumonia - Patient is on IV Rocephin and azithromycin, DuoNeb, Pulmicort, Mucinex, oxygen support - Solu-Medrol changed to by mouth prednisone 07/04/18 - CT showed small left-sided pneumonia 2. Acute exacerbation CHF - lasix 40 mg twice a day, electrolyte replacement 3. Volume overload likely secondary to #2 4. Acute on chronic hypoxic respiratory failure 5. Hypertension - Continue losartan, Norvasc and metoprolol 6. History of rheumatoid arthritis 7. Acute back pain 8. History of depression; continue Cymbalta Deconditioned; PT evaluation and recommended rehabilitation placement Chronic pain; buprenorphine. Weaned of [place] Disposition; pending rehabilitation placement. Case management and director of social services aware. History Interval history: Review of systems Constitutional: No fevers, no malaise, no joint pains CVS: No chest pain, no orthopnea, no dyspnea on exertion, no pedal edema GI: No abdominal pain, no diarrhea, no vomiting, no constipation Respiratory: Complaining of occasional dry cough and shortness of breath Hospitalist Physical - Physical exam Narrative exam: General.: Appears well, no distress, nontoxic HEENT: Moist mucous membranes, extraocular muscles intact, no lymphadenopathy Neck: supple Cardiac: S1-S2 heard Lungs: Decreased air entry Abdomen: soft , nontender, nondistended, bowel sounds positive Extremities: no edema clubbing or cyanosis Skin: no rash or lesions Neurologic: no gross focal deficits Psych: calm, and cooperative - Constitutional Vitals: Temp Pulse Resp BP Pulse Ox 97.8 F 89 16 154/82 99 07/04/18 19:31 07/05/18 08:02 07/05/18 08:02 07/04/18 20:56 07/05/18 08:02 Results - Labs CBC & Chem 7: 07/06/18 05:04 07/06/18 05:04 Labs: Laboratory Last Values WBC 9.3 K/mm3 (4.5-11.0) 07/02/18 06:06 RBC 3.24 M/mm3 (3.65-5.03) L 07/02/18 06:06 Hgb 9.9 gm/dl (10.1-14.3) L 07/02/18 06:06 Hct 30.1 % (30.3-42.9) L 07/02/18 06:06 MCV 93 fl (79-97) 07/02/18 06:06 MCH 31 pg (28-32) 07/02/18 06:06 MCHC 33 % (30-34) 07/02/18 06:06 RDW 18.1 % (13.2-15.2) H 07/02/18 06:06 Plt Count 308 K/mm3 (140-440) 07/02/18 06:06 Lymph % (Auto) 15.9 % (13.4-35.0) 07/01/18 05:53 [place] % (Auto) 10.2 % (0.0-7.3) H 07/01/18 05:53 Eos % (Auto) 1.1 % (0.0-4.3) 07/01/18 05:53 Baso % (Auto) 0.2 % (0.0-1.8) 07/01/18 05:53 Lymph # 1.2 K/mm3 (1.2-5.4) 07/01/18 05:53 Bullock # 0.8 K/mm3 (0.0-0.8) 07/01/18 05:53 Eos # 0.1 K/mm3 (0.0-0.4) 07/01/18 05:53 Baso # 0.0 K/mm3 (0.0-0.1) 07/01/18 05:53 Add Manual Diff Complete 07/02/18 06:06 Total Counted 100 07/02/18 06:06 Seg Neutrophils % Milled Lumber Grader 07/02/18 06:06 Seg Neuts % (Manual) 79.0 % (40.0-70.0) H 07/02/18 06:06 11.0 % 07/02/18 06:06 9.0 % (13.4-35.0) L 07/02/18 06:06 Reactive Lymphs % (Man) 0 % 07/02/18 06:06 1.0 % (0.0-7.3) 07/02/18 06:06 0 % (0.0-4.3) 07/02/18 06:06 0 % (0.0-1.8) 07/02/18 06:06 0 % 07/02/18 06:06 0 % 07/02/18 06:06 0 % 07/02/18 06:06 0 % 07/02/18 06:06 Nucleated RBC % Not Reportable 07/02/18 06:06 Seg Neutrophils # 5.3 K/mm3 (1.8-7.7) 07/01/18 05:53 Seg Neutrophils # Man 7.3 K/mm3 (1.8-7.7) 07/02/18 06:06 Band Neutrophils # 1.0 K/mm3 07/02/18 06:06 0.8 K/mm3 (1.2-5.4) L 07/02/18 06:06 Abs React Lymphs (Man) 0.0 K/mm3 07/02/18 06:06 0.1 K/mm3 (0.0-0.8) 07/02/18 06:06 0.0 K/mm3 (0.0-0.4) 07/02/18 06:06 0.0 K/mm3 (0.0-0.1) 07/02/18 06:06 0.0 K/mm3 07/02/18 06:06 0.0 K/mm3 07/02/18 06:06 0.0 K/mm3 07/02/18 06:06 Blast Cells # 0.0 K/mm3 07/02/18 06:06 WBC Morphology Not Reportable 07/02/18 06:06 Hypersegmented Neuts Not Reportable 07/02/18 06:06 Hyposegmented Neuts Not Reportable 07/02/18 06:06 Hypogranular Neuts Not Reportable 07/02/18 06:06 Not Reportable 07/02/18 06:06 Not Reportable 07/02/18 06:06 Not Reportable 07/02/18 06:06 Not Reportable 07/02/18 06:06 Not Reportable 07/02/18 06:06 Not Reportable 07/02/18 06:06 Appears normal 07/02/18 06:06 Not Reportable 07/02/18 06:06 Plt Clumps, EDTA Not Reportable 07/02/18 06:06 Not Reportable 07/02/18 06:06 Not Reportable 07/02/18 06:06 Not Reportable 07/02/18 06:06 Plt Morphology Comment Not Reportable 07/02/18 06:06 RBC Morphology Not Reportable 07/02/18 06:06 Dimorphic RBCs Not Reportable 07/02/18 06:06 Not Reportable 07/02/18 06:06 Not Reportable 07/02/18 06:06 Not Reportable 07/02/18 06:06 1+ 07/02/18 06:06 Not Reportable 07/02/18 06:06 Not Reportable 07/02/18 06:06 Not Reportable 07/02/18 06:06 Not Reportable 07/02/18 06:06 Not Reportable 07/02/18 06:06 Not Reportable 07/02/18 06:06 Not Reportable 07/02/18 06:06 Not Reportable 07/02/18 06:06 Not Reportable 07/02/18 06:06 Not Reportable 07/02/18 06:06 Not Reportable 07/02/18 06:06 Not Reportable 07/02/18 06:06 Not Reportable 07/02/18 06:06 Not Reportable 07/02/18 06:06 Not Reportable 07/02/18 06:06 Acanthocytes (Spur) Not Reportable 07/02/18 06:06 Rouleaux Not Reportable 07/02/18 06:06 Not Reportable 07/02/18 06:06 Not Reportable 07/02/18 06:06 Not Reportable 07/02/18 06:06 Not Reportable 07/02/18 06:06 Hem Pathologist Commnt No 07/02/18 06:06 747.37 ng/mlDDU (0-234) H 06/30/18 19:11 POC ABG pH 7.487 (7.35-7.45) H 06/30/18 19:27 POC ABG pCO2 43.6 (35-45) 06/30/18 19:27 POC ABG pO2 104 (80-105) 06/30/18 19:27 POC ABG HCO3 33.0 (22-26 mml/L) 06/30/18 19:27 POC ABG Total CO2 34 (23-27mmol/L) 06/30/18 19:27 POC ABG O2 Sat 98 06/30/18 19:27 POC ABG Base Excess 10 ((-2) - (+3)mmol/L) 06/30/18 19:27 28 % 06/30/18 19:27 Sodium 145 mmol/L (137-145) 07/03/18 04:07 Potassium 3.6 mmol/L (3.6-5.0) 07/03/18 04:07 Chloride 102.3 mmol/L (98-107) 07/03/18 04:07 Carbon Dioxide 28 mmol/L (22-30) 07/03/18 04:07 18 mmol/L 07/03/18 04:07 BUN 41 mg/dL (7-17) H 07/03/18 04:07 1.3 mg/dL (0.7-1.2) H 07/03/18 04:07 Estimated GFR 49 ml/min 07/03/18 04:07 32 % 07/03/18 04:07 Glucose 223 mg/dL (65-100) H 07/03/18 04:07 Calcium 9.3 mg/dL (8.4-10.2) 07/03/18 04:07 < 0.010 ng/mL (0.00-0.029) 06/30/18 18:49 NT-Pro-B Natriuret Pep 675.4 pg/mL (0-900) 06/30/18 19:11 Active Medications - Current Medications Current Medications: Generic Name Dose Route Start Last Admin Trade Name Freq PRN Reason Stop Dose Admin Acetaminophen 650 mg 06/30/18 23:11 Tylenol PO Q4H PRN Pain MILD(1-3)/Fever >100.5/AMOR Albuterol 2.5 mg 06/30/18 23:11 Proventil IH Q4HRT PRN Shortness Of Breath Amlodipine Besylate 10 mg 07/01/18 10:00 07/04/18 10:12 Norvasc PO 10 mg DAILY ANGELES Administration Arformoterol Tartrate 15 mcg 07/04/18 20:00 07/05/18 08:02 Brovana Nebu IH 15 mcg Q12HRT ANGELES Administration Aspirin 81 mg 07/01/18 10:00 07/04/18 10:11 Halfprin Ec PO 81 mg QDAY ANGELES Administration Azithromycin 500 mg 07/01/18 11:00 07/04/18 10:11 Zithromax PO 500 mg QDAY ANGELES Administration Budesonide 0.5 mg 07/01/18 08:00 07/05/18 08:02 Pulmicort IH 0.5 mg Q12HRT ANGELES Administration Buprenorphine HCl 2 each 07/04/18 10:00 07/04/18 10:14 Suboxone 2 Mg-0.5 Mg SL 2 each QDAY ANGELES Administration Buspirone HCl 7.5 mg 07/01/18 10:00 07/04/18 22:08 Buspar PO 7.5 mg BID ANGELES Administration Docusate Sodium 100 mg 07/01/18 10:00 07/04/18 22:08 Colace PO 100 mg BID ANGELES Administration Duloxetine HCl 60 mg 07/01/18 10:00 07/04/18 10:10 Cymbalta PO 60 mg QDAY ANGELES Administration Enoxaparin Sodium 40 mg 07/01/18 10:00 07/04/18 10:10 Lovenox SUB-Q 40 mg QDAY ANGELES Administration Furosemide 40 mg 07/01/18 10:00 07/04/18 22:07 Lasix IV 40 mg BID ANGELES Administration Hydralazine HCl 10 mg 06/30/18 23:23 Apresoline IV Q4H PRN Blood Pressure Ceftriaxone Sodium 1 gm in 50 mls @ 100 mls/hr 07/01/18 11:00 07/04/18 10:10 Rocephin/Ns 1 Gm/50 Ml IV 100 mls/hr Q24HR ANGELES Administration Protocol Lorazepam 0.5 mg 07/01/18 20:32 07/04/18 14:13 Ativan PO 0.5 mg Q12HR PRN Administration Anxiety Losartan Potassium 50 mg 07/01/18 10:00 07/04/18 14:12 Cozaar PO 50 mg QDAY ANGELES Administration Metoprolol Tartrate 50 mg 07/01/18 08:00 07/04/18 20:56 Lopressor PO 50 mg TID ANGELES Administration Ondansetron HCl 4 mg 06/30/18 23:11 07/03/18 08:26 Zofran IV 4 mg Q8H PRN Administration Nausea And Vomiting Potassium Chloride 40 meq 07/01/18 10:00 07/04/18 10:10 K-Dur PO 40 meq DAILY ANGELES Administration Prednisone 40 mg 07/04/18 10:00 07/04/18 10:11 Deltasone PO 40 mg QDAY ANGELES Administration Sodium Chloride 10 ml 07/01/18 10:00 07/04/18 22:10 Sodium Chloride Flush Syringe 10 Ml IV 10 ml BID ANGELES Administration Sodium Chloride 10 ml 06/30/18 23:11 Sodium Chloride Flush Syringe 10 Ml IV PRN PRN LINE FLUSH
[2018-07-05] MEDS: SUBOXONE 2 MG-0.5 MG SL SCH (09:14)
[2018-07-05] MEDS: K-DUR PO SCH (09:15)
[2018-07-05] MEDS: LOVENOX SUB-Q SCH (09:15)
[2018-07-05] MEDS: ROCEPHIN/NS 1 GM/50 ML 1 GM/50 ML BAG IV SCH (09:15)
[2018-07-05] MEDS: CYMBALTA PO SCH (09:15)
[2018-07-05] MEDS: COZAAR PO SCH (09:15)
[2018-07-05] MEDS: DELTASONE PO SCH (09:15)
[2018-07-05] MEDS: BUSPAR PO SCH ×2 (09:16→22:29)
[2018-07-05] MEDS: ZITHROMAX PO SCH (09:16)
[2018-07-05] MEDS: COLACE PO SCH ×2 (09:16→22:31)
[2018-07-05] MEDS: LASIX IV SCH ×2 (09:16→22:30)
[2018-07-05] MEDS: SODIUM CHLORIDE FLUSH SYRINGE 10 ML IV SCH ×2 (09:17→22:32)
[2018-07-05] MEDS: LOPRESSOR PO SCH ×3 (09:17→20:31)
[2018-07-05] MEDS: HALFPRIN EC PO SCH (09:17)
[2018-07-05] MEDS: NORVASC PO SCH (09:17)
[2018-07-05] MEDS: ZOFRAN IV PRN (09:31)
--- NOTE | 2018-07-05 11:29 | Progress Note ---
Assessment and Plan Acute on chronic hypoxemic respiratory failure Acute exacerbation COPD Acute exacerbation CHF Volume overload likely secondary to #2 Hypertension History of rheumatoid arthritis Acute back pain History of depression - continue supplemental oxygen to keep O2 sats>90% - continue bronchodilators with pulmonary hygiene per RT - continue Brovana & prn albuterol - continue VTE prophylaxis - continue systemic steroid taper - continue diuresis while monitoring renal failure, electrolyte and hemodynamics - Chronic home medications - PT/OT to evalute and treat - NIPPV qhs and prn - Patient has had 4 admissions in the last 6 weeks. Will recommend placement on discharge ... tentatively to go to rehab facility ... re-evaluate in am & prn Subjective Date of service: 07/05/18 Principal diagnosis: Ac on ch hypoxemic resp failure; AE-COPD; HAP; Acute exacerbation CHF Interval history: Patient is seen today for: Acute on chronic hypoxemic respiratory failure; HAP Seen and examined at bedside; 24hour events reviewed; nursing and respiratory care staff consulted; no adverse overnight events reported to me; resting peacefully in bed; no new issues respiratory-escobar; improved; No chest pains or palpitations Objective Vital Signs - 12hr 07/05/18 07/05/18 07/05/18 07:58 08:02 08:16 Temperature 96.6 F L Pulse Rate 86 Pulse Rate [ 89 Anterior Throughout] Respiratory 18 Rate Respiratory 16 Rate [Anterior Throughout] Blood Pressure 172/83 O2 Sat by Pulse 99 99 Oximetry 07/05/18 07/05/18 07/05/18 08:22 09:15 09:17 Temperature Pulse Rate 86 86 Pulse Rate [ 84 Anterior Throughout] Respiratory Rate Respiratory 16 Rate [Anterior Throughout] Blood Pressure 172/83 172/83 O2 Sat by Pulse Oximetry Constitutional: no acute distress, alert, other (elderly looking AAF, normocephalic and atraumatic with mild respiratory distress) Eyes: non-icteric ENT: oropharynx moist, other (mallampati 3) Neck: supple, no JVD, other (large neck circumference) Effort: mildly labored Ascultation: Bilateral: diminished breath sounds, rhonchi (scant in bases), other (Prolonged expiratory phase.) Percussion: Bilateral: not dull Cardiovascular: regular rate and rhythm, other (S1,S2, no murmurs, no gallops) Gastrointestinal: normoactive bowel sounds, soft, non-tender, non-distended Integumentary: normal Extremities: no cyanosis, no edema, pulses normal, no ischemia or petechiae Neurologic: normal mental status, non-focal exam, pupils equal and round, CN II- XII normal, motor strength normal and Psychiatric: mood appropriate, affect normal CBC and BMP: 07/06/18 05:04 07/06/18 05:04 ABG, PT/INR, D-dimer: ABG POC ABG pH 7.487 (7.35-7.45) H 06/30/18 19:27 POC ABG pCO2 43.6 (35-45) 06/30/18 19:27 POC ABG pO2 104 (80-105) 06/30/18 19:27 POC ABG HCO3 33.0 (22-26 mml/L) 06/30/18 19:27 POC ABG Total CO2 34 (23-27mmol/L) 06/30/18 19:27 POC ABG O2 Sat 98 06/30/18 19:27 PT/INR, D-dimer 747.37 ng/mlDDU (0-234) H 06/30/18 19:11 Abnormal lab findings: Abnormal Labs 06/30/18 06/30/18 06/30/18 18:49 18:49 19:11 RBC 3.36 L Hgb Hct RDW 17.6 H Lymph % (Auto) 8.0 L Clayton % (Auto) 7.8 H Lymph # 0.8 L Seg Neutrophils % 83.0 H Seg Neuts % (Manual) Lymphocytes % (Manual) Seg Neutrophils # 8.5 H Lymphocytes # (Manual) D-Dimer 747.37 H POC ABG pH Sodium 146 H BUN Creatinine Glucose 06/30/18 07/01/18 07/01/18 19:27 05:53 05:53 RBC 3.15 L Hgb 9.7 L Hct 29.4 L RDW 17.8 H Lymph % (Auto) [place] % (Auto) 10.2 H Lymph # Seg Neutrophils % 72.6 H Seg Neuts % (Manual) Lymphocytes % (Manual) Seg Neutrophils # Lymphocytes # (Manual) D-Dimer POC ABG pH 7.487 H Sodium BUN 20 H Creatinine Glucose 195 H 07/02/18 07/02/18 07/03/18 06:06 06:06 04:07 RBC 3.24 L Hgb 9.9 L Hct 30.1 L RDW 18.1 H Lymph % (Auto) [place] % (Auto) Lymph # Seg Neutrophils % Seg Neuts % (Manual) 79.0 H Lymphocytes % (Manual) 9.0 L Seg Neutrophils # Lymphocytes # (Manual) 0.8 L D-Dimer POC ABG pH Sodium BUN 27 H 41 H Creatinine 1.3 H Glucose 273 H 223 H Allied health notes reviewed: nursing
[2018-07-05] MEDS: ATIVAN PO PRN ×2 (15:06→22:36)
[2018-07-06 05:53] LABS: Hemoglobin 10.6 gm/dl (10.1-14.3); Mean Corpuscular HGB Conc 33 % (30-34); Mean Corpuscular Volume 93 fl (79-97); Platelet Count 246 K/mm3 (140-440); Red Blood Count 3.43 M/mm3 (3.65-5.03)
[2018-07-06 06:05] LABS: BUN/Creatinine Ratio 38; Blood Urea Nitrogen 34 mg/dL (7-17); Calcium 8.4 mg/dL (8.4-10.2); Hemolysis Index 21
[2018-07-06] MEDS ORDERED: BROVANA NEBU IH ONE (08:16)
[2018-07-06] MEDS: BROVANA NEBU IH SCH (08:22)
[2018-07-06] MEDS: PULMICORT IH SCH (08:22)
[2018-07-06 08:25] LABS: Promyelocytes # (Manual) 0.1 K/mm3; Total Cells Counted 100
[2018-07-06 08:26] LABS: Anisocytosis 1+; Basophils % (Manual) 0 % (0.0-1.8); Ovalocytes Few; Platelet Estimate Consistent w Auto; Poikilocytosis 1+
[2018-07-06] MEDS: LOPRESSOR PO SCH ×2 (08:30→14:35)
[2018-07-06] MEDS: COZAAR PO SCH (09:35)
[2018-07-06] MEDS: CYMBALTA PO SCH (09:35)
[2018-07-06] MEDS: ROCEPHIN/NS 1 GM/50 ML 1 GM/50 ML BAG IV SCH (09:36)
[2018-07-06] MEDS: K-DUR PO SCH (09:36)
[2018-07-06] MEDS: SUBOXONE 2 MG-0.5 MG SL SCH (09:36)
[2018-07-06] MEDS: BUSPAR PO SCH (09:36)
[2018-07-06] MEDS: DELTASONE PO SCH (09:38)
[2018-07-06] MEDS: LASIX IV SCH (09:38)
[2018-07-06] MEDS: LOVENOX SUB-Q SCH (09:38)
[2018-07-06] MEDS: ZITHROMAX PO SCH (09:38)
[2018-07-06] MEDS: HALFPRIN EC PO SCH (09:38)
[2018-07-06] MEDS: NORVASC PO SCH (09:39)
[2018-07-06] MEDS: SODIUM CHLORIDE FLUSH SYRINGE 10 ML IV SCH (09:39)
[2018-07-06] MEDS: COLACE PO SCH (09:40)
--- NOTE | 2018-07-06 12:10 | Progress Note ---
Assessment and Plan Assessment and plan: 68-year-old -[place] female with history of CHF, rheumatoid arthritis, hypertension, COPD, chronic respiratory failure with continuous home oxygen use of 2 L nasal cannula presented to [facility] ED with complaints of fever, chills, and cough with thick yellow to dark yellow sputum production x 1 week. Also, patient complained of back pain related to recent fall. Hip x-ray was unrevealing for any acute abnormalities. 1. Acute exacerbation COPD, Pneumonia - Patient is on IV Rocephin and azithromycin, DuoNeb, Pulmicort, Mucinex, oxygen support - Solu-Medrol changed to by mouth prednisone 07/04/18 - CT showed small left-sided pneumonia 2. Acute exacerbation CHF - lasix 40 mg twice a day, electrolyte replacement 3. Volume overload likely secondary to #2 4. Acute on chronic respiratory failure 5. Hypertension - Continue losartan, Norvasc and metoprolol 6. History of rheumatoid arthritis 7. Acute back pain 8. History of depression; continue Cymbalta Deconditioned; PT evaluation and recommended rehabilitation placement opioid dependence; Chronic pain; buprenorphine. patient has pain med seeking behavior, cont follows with Dr Minor Galvan who is her pain mgt doctor, he took her off ativan, thefore ativan was dc, continue to taper suboxone, percocet BID prn pain Disposition; pending rehabilitation placement. 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 Medicare unable to fund her to go to acute rehabilitation, she was adamant that she cannot go back home, the patient was advised to fill out a Medicaid application for Medicaid to find a rehabilitation stay. She has appealed her discharge with Medicare History Interval history: Review of systems Constitutional: No fevers, no malaise, no joint pains CVS: No chest pain, no orthopnea, no dyspnea on exertion, no pedal edema GI: No abdominal pain, no diarrhea, no vomiting, no constipation Respiratory: Complaining of occasional dry cough shortness of breath Hospitalist Physical - Physical exam Narrative exam: General.: Appears well, no distress, nontoxic HEENT: Moist mucous membranes, extraocular muscles intact, no lymphadenopathy Neck: supple Cardiac: S1-S2 heard Lungs: Decreased air entry Abdomen: soft , nontender, nondistended, bowel sounds positive Extremities: no edema clubbing or cyanosis Skin: no rash or lesions Neurologic: no gross focal deficits Psych: calm, and cooperative - Constitutional Vitals: Temp Pulse Resp BP Pulse Ox 98.6 F 98 H 16 150/75 95 07/06/18 07:40 07/06/18 09:39 07/06/18 08:24 07/06/18 09:39 07/06/18 08:23 Results - Labs CBC & Chem 7: 07/06/18 05:04 07/06/18 05:04 Labs: Laboratory Last Values WBC 8.6 K/mm3 (4.5-11.0) 07/06/18 05:04 RBC 3.43 M/mm3 (3.65-5.03) L 07/06/18 05:04 Hgb 10.6 gm/dl (10.1-14.3) 07/06/18 05:04 Hct 32.0 % (30.3-42.9) 07/06/18 05:04 MCV 93 fl (79-97) 07/06/18 05:04 MCH 31 pg (28-32) 07/06/18 05:04 MCHC 33 % (30-34) 07/06/18 05:04 RDW 18.0 % (13.2-15.2) H 07/06/18 05:04 Plt Count 246 K/mm3 (140-440) 07/06/18 05:04 Lymph % (Auto) 15.9 % (13.4-35.0) 07/01/18 05:53 [place] % (Auto) 10.2 % (0.0-7.3) H 07/01/18 05:53 Eos % (Auto) 1.1 % (0.0-4.3) 07/01/18 05:53 Baso % (Auto) 0.2 % (0.0-1.8) 07/01/18 05:53 Lymph # 1.2 K/mm3 (1.2-5.4) 07/01/18 05:53 [place] # 0.8 K/mm3 (0.0-0.8) 07/01/18 05:53 Eos # 0.1 K/mm3 (0.0-0.4) 07/01/18 05:53 Baso # 0.0 K/mm3 (0.0-0.1) 07/01/18 05:53 Add Manual Diff Complete 07/06/18 05:04 Total Counted 100 07/06/18 05:04 Seg Neutrophils % Wood Tile Installation Helper 07/02/18 06:06 Seg Neuts % (Manual) 74.0 % (40.0-70.0) H 07/06/18 05:04 0 % 07/06/18 05:04 16.0 % (13.4-35.0) 07/06/18 05:04 Reactive Lymphs % (Man) 0 % 07/06/18 05:04 8.0 % (0.0-7.3) H 07/06/18 05:04 1.0 % (0.0-4.3) 07/06/18 05:04 0 % (0.0-1.8) 07/06/18 05:04 0 % 07/06/18 05:04 0 % 07/06/18 05:04 1.0 % 07/06/18 05:04 0 % 07/06/18 05:04 Nucleated RBC % Not Reportable 07/06/18 05:04 Seg Neutrophils # 5.3 K/mm3 (1.8-7.7) 07/01/18 05:53 Seg Neutrophils # Man 6.4 K/mm3 (1.8-7.7) 07/06/18 05:04 Band Neutrophils # 0.0 K/mm3 07/06/18 05:04 1.4 K/mm3 (1.2-5.4) 07/06/18 05:04 Abs React Lymphs (Man) 0.0 K/mm3 07/06/18 05:04 0.7 K/mm3 (0.0-0.8) 07/06/18 05:04 0.1 K/mm3 (0.0-0.4) 07/06/18 05:04 0.0 K/mm3 (0.0-0.1) 07/06/18 05:04 0.0 K/mm3 07/06/18 05:04 0.0 K/mm3 07/06/18 05:04 0.1 K/mm3 07/06/18 05:04 Blast Cells # 0.0 K/mm3 07/06/18 05:04 WBC Morphology Not Reportable 07/06/18 05:04 Hypersegmented Neuts Not Reportable 07/06/18 05:04 Hyposegmented Neuts Not Reportable 07/06/18 05:04 Hypogranular Neuts Not Reportable 07/06/18 05:04 Not Reportable 07/06/18 05:04 Not Reportable 07/06/18 05:04 Not Reportable 07/06/18 05:04 Not Reportable 07/06/18 05:04 Not Reportable 07/06/18 05:04 Not Reportable 07/06/18 05:04 Consistent w auto 07/06/18 05:04 Not Reportable 07/06/18 05:04 Plt Clumps, EDTA Not Reportable 07/06/18 05:04 Not Reportable 07/06/18 05:04 Not Reportable 07/06/18 05:04 Not Reportable 07/06/18 05:04 Plt Morphology Comment Not Reportable 07/06/18 05:04 RBC Morphology Not Reportable 07/06/18 05:04 Dimorphic RBCs Not Reportable 07/06/18 05:04 Not Reportable 07/06/18 05:04 Not Reportable 07/06/18 05:04 1+ 07/06/18 05:04 1+ 07/06/18 05:04 Not Reportable 07/06/18 05:04 Not Reportable 07/06/18 05:04 Not Reportable 07/06/18 05:04 Not Reportable 07/06/18 05:04 Not Reportable 07/06/18 05:04 Not Reportable 07/06/18 05:04 Not Reportable 07/06/18 05:04 Few 07/06/18 05:04 Not Reportable 07/06/18 05:04 Not Reportable 07/06/18 05:04 Not Reportable 07/06/18 05:04 Not Reportable 07/06/18 05:04 Not Reportable 07/06/18 05:04 Not Reportable 07/06/18 05:04 Not Reportable 07/06/18 05:04 Acanthocytes (Spur) Not Reportable 07/06/18 05:04 Rouleaux Not Reportable 07/06/18 05:04 Not Reportable 07/06/18 05:04 Not Reportable 07/06/18 05:04 Not Reportable 07/06/18 05:04 Not Reportable 07/06/18 05:04 Hem Pathologist Commnt No 07/06/18 05:04 747.37 ng/mlDDU (0-234) H 06/30/18 19:11 POC ABG pH 7.487 (7.35-7.45) H 06/30/18 19:27 POC ABG pCO2 43.6 (35-45) 06/30/18 19:27 POC ABG pO2 104 (80-105) 06/30/18 19:27 POC ABG HCO3 33.0 (22-26 mml/L) 06/30/18 19:27 POC ABG Total CO2 34 (23-27mmol/L) 06/30/18 19:27 POC ABG O2 Sat 98 06/30/18 19:27 POC ABG Base Excess 10 ((-2) - (+3)mmol/L) 06/30/18 19:27 28 % 06/30/18 19:27 Sodium 147 mmol/L (137-145) H 07/06/18 05:04 Potassium 4.0 mmol/L (3.6-5.0) 07/06/18 05:04 Chloride 101.9 mmol/L (98-107) 07/06/18 05:04 Carbon Dioxide 35 mmol/L (22-30) H D 07/06/18 05:04 14 mmol/L 07/06/18 05:04 BUN 34 mg/dL (7-17) H 07/06/18 05:04 0.9 mg/dL (0.7-1.2) 07/06/18 05:04 Estimated GFR > 60 ml/min 07/06/18 05:04 38 % 07/06/18 05:04 Glucose 97 mg/dL (65-100) 07/06/18 05:04 Calcium 8.4 mg/dL (8.4-10.2) 07/06/18 05:04 < 0.010 ng/mL (0.00-0.029) 06/30/18 18:49 NT-Pro-B Natriuret Pep 675.4 pg/mL (0-900) 06/30/18 19:11 Active Medications - Current Medications Current Medications: Generic Name Dose Route Start Last Admin Trade Name Freq PRN Reason Stop Dose Admin Acetaminophen 650 mg 06/30/18 23:11 07/05/18 15:05 Tylenol PO 650 mg Q4H PRN Administration Pain MILD(1-3)/Fever >100.5/AMOR Albuterol 2.5 mg 06/30/18 23:11 Proventil IH Q4HRT PRN Shortness Of Breath Amlodipine Besylate 10 mg 07/01/18 10:00 07/06/18 09:39 Norvasc PO 10 mg DAILY ANGELES Administration Arformoterol Tartrate 15 mcg 07/04/18 20:00 07/06/18 08:22 Brovana Nebu IH 15 mcg Q12HRT ANGELES Administration Aspirin 81 mg 07/01/18 10:00 07/06/18 09:38 Halfprin Ec PO 81 mg QDAY ANGELES Administration Azithromycin 500 mg 07/01/18 11:00 07/06/18 09:38 Zithromax PO 500 mg QDAY ANGELES Administration Budesonide 0.5 mg 07/01/18 08:00 07/06/18 08:22 Pulmicort IH 0.5 mg Q12HRT ANGELES Administration Buprenorphine HCl 2 each 07/04/18 10:00 07/06/18 09:36 Suboxone 2 Mg-0.5 Mg SL 2 each QDAY ANGELES Administration Buspirone HCl 7.5 mg 07/01/18 10:00 07/06/18 09:36 Buspar PO 7.5 mg BID ANGELES Administration Docusate Sodium 100 mg 07/01/18 10:00 07/06/18 09:40 Colace PO Not Given BID ANGELES Duloxetine HCl 60 mg 07/01/18 10:00 07/06/18 09:35 Cymbalta PO 60 mg QDAY ANGELES Administration Enoxaparin Sodium 40 mg 07/01/18 10:00 07/06/18 09:38 Lovenox SUB-Q 40 mg QDAY ANGELES Administration Furosemide 40 mg 07/01/18 10:00 07/06/18 09:38 Lasix IV 40 mg BID ANGELES Administration Hydralazine HCl 10 mg 06/30/18 23:23 Apresoline IV Q4H PRN Blood Pressure Ceftriaxone Sodium 1 gm in 50 mls @ 100 mls/hr 07/01/18 11:00 07/06/18 09:36 Rocephin/Ns 1 Gm/50 Ml IV 100 mls/hr Q24HR ANGELES Administration Protocol Lorazepam 0.5 mg 07/01/18 20:32 07/05/18 22:36 Ativan PO 0.5 mg Q12HR PRN Administration Anxiety Losartan Potassium 50 mg 07/01/18 10:00 07/06/18 09:35 Cozaar PO 50 mg QDAY ANGELES Administration Metoprolol Tartrate 50 mg 07/01/18 08:00 07/06/18 08:30 Lopressor PO 50 mg TID ANGELES Administration Ondansetron HCl 4 mg 06/30/18 23:11 07/05/18 09:31 Zofran IV 4 mg Q8H PRN Administration Nausea And Vomiting Potassium Chloride 40 meq 07/01/18 10:00 07/06/18 09:36 K-Dur PO 40 meq DAILY ANGELES Administration Prednisone 40 mg 07/04/18 10:00 07/06/18 09:38 Deltasone PO 40 mg QDAY ANGELES Administration Sodium Chloride 10 ml 07/01/18 10:00 07/06/18 09:39 Sodium Chloride Flush Syringe 10 Ml IV 10 ml BID ANGELES Administration Sodium Chloride 10 ml 06/30/18 23:11 Sodium Chloride Flush Syringe 10 Ml IV PRN PRN LINE FLUSH
[2018-07-06] MEDS ORDERED: PERCOCET 5/325 PO PRN (13:17)
[2018-07-06] MEDS ORDERED: ROBITUSSIN PO PRN (14:30)
--- NOTE | 2018-07-06 14:43 | Progress Note ---
Assessment and Plan Patient awake.Resting on 2 litres O2.O2 saturation 98%. Still complaining cough with thick sputum. - Patient Problems (1) Acute respiratory failure Status: Acute Qualifiers: Respiratory failure complication: hypoxia Qualified Code(s): J96.01 - Acute respiratory failure with hypoxia Plan to address problem: O2 2 litres via nasal canula. Albuterol/atrovent aerosol treatments q 6 hours. Continue I/V solumedrol Continue S/C Lovenox. Recommend GI Prophylaxis. Continue ceftrioxone. and zithromax. (2) Pneumonia Status: Acute Plan to address problem: Continue ceftrioxone and zithromax. (3) COPD exacerbation Status: Acute Plan to address problem: O2 2 litres via nasal canula. Albuterol/atrovent aerosol treatments q 6 hours. Continue I/V solumedrol Continue S/C Lovenox. Recommend GI Prophylaxis Continue zithromax and ceftrioxone. (4) Depression Status: Chronic Qualifiers: Depression Type: unspecified Qualified Code(s): F32.9 - Major depressive disorder, single episode, unspecified Plan to address problem: Management as per primary care. (5) HTN (hypertension) Status: Chronic Qualifiers: Hypertension type: essential hypertension Qualified Code(s): I10 - Essential (primary) hypertension Plan to address problem: Management as per primary care. Subjective Date of service: 07/06/18 Principal diagnosis: Ac on ch hypoxemic resp failure; AE-COPD; HAP; Acute exacerbation CHF Interval history: Patient awake.Resting on 2 litres O2.O2 saturation 98%. Still complaining cough with thick sputum. Objective Vital Signs - 12hr 07/06/18 07/06/18 07/06/18 02:51 07:40 08:10 Temperature 98.2 F 98.6 F Pulse Rate 81 98 H Pulse Rate [ Anterior Throughout] Respiratory 20 24 24 Rate Respiratory Rate [Anterior Throughout] Blood Pressure 139/84 150/75 O2 Sat by Pulse 97 97 95 Oximetry 07/06/18 07/06/18 07/06/18 08:23 08:24 08:30 Temperature Pulse Rate 98 H Pulse Rate [ 88 Anterior Throughout] Respiratory Rate Respiratory 16 Rate [Anterior Throughout] Blood Pressure 150/75 O2 Sat by Pulse 95 Oximetry 07/06/18 07/06/18 07/06/18 08:37 09:35 09:39 Temperature Pulse Rate 98 H 98 H Pulse Rate [ 98 H Anterior Throughout] Respiratory Rate Respiratory Rate [Anterior Throughout] Blood Pressure 150/75 150/75 O2 Sat by Pulse Oximetry 07/06/18 07/06/18 14:33 14:35 Temperature 99.3 F Pulse Rate 93 H 93 H Pulse Rate [ Anterior Throughout] Respiratory 22 Rate Respiratory Rate [Anterior Throughout] Blood Pressure 141/92 141/92 O2 Sat by Pulse 98 Oximetry Constitutional: no acute distress, alert, other (elderly looking AAF, normocephalic and atraumatic with mild respiratory distress) Eyes: non-icteric ENT: oropharynx moist, other (mallampati 3) Neck: supple, no JVD, other (large neck circumference) Effort: mildly labored Ascultation: Bilateral: diminished breath sounds, rhonchi (scant in bases), other (Prolonged expiratory phase.) Percussion: Bilateral: not dull Cardiovascular: regular rate and rhythm, other (S1,S2, no murmurs, no gallops) Gastrointestinal: normoactive bowel sounds, soft, non-tender, non-distended Integumentary: normal Extremities: no cyanosis, no edema, pulses normal, no ischemia or petechiae Neurologic: normal mental status, non-focal exam, pupils equal and round, CN II- XII normal, motor strength normal and Psychiatric: mood appropriate, affect normal CBC and BMP: 07/06/18 05:04 07/06/18 05:04 ABG, PT/INR, D-dimer: ABG POC ABG pH 7.487 (7.35-7.45) H 06/30/18 19:27 POC ABG pCO2 43.6 (35-45) 06/30/18 19:27 POC ABG pO2 104 (80-105) 06/30/18 19:27 POC ABG HCO3 33.0 (22-26 mml/L) 06/30/18 19:27 POC ABG Total CO2 34 (23-27mmol/L) 06/30/18 19:27 POC ABG O2 Sat 98 06/30/18 19:27 PT/INR, D-dimer 747.37 ng/mlDDU (0-234) H 06/30/18 19:11 Abnormal lab findings: Abnormal Labs 06/30/18 06/30/18 06/30/18 18:49 18:49 19:11 RBC 3.36 L Hgb Hct RDW 17.6 H Lymph % (Auto) 8.0 L [place] % (Auto) 7.8 H Lymph # 0.8 L Seg Neutrophils % 83.0 H Seg Neuts % (Manual) Lymphocytes % (Manual) Monocytes % (Manual) Seg Neutrophils # 8.5 H Lymphocytes # (Manual) D-Dimer 747.37 H POC ABG pH Sodium 146 H Carbon Dioxide BUN Creatinine Glucose 06/30/18 07/01/18 07/01/18 19:27 05:53 05:53 RBC 3.15 L Hgb 9.7 L Hct 29.4 L RDW 17.8 H Lymph % (Auto) [place] % (Auto) 10.2 H Lymph # Seg Neutrophils % 72.6 H Seg Neuts % (Manual) Lymphocytes % (Manual) Monocytes % (Manual) Seg Neutrophils # Lymphocytes # (Manual) D-Dimer POC ABG pH 7.487 H Sodium Carbon Dioxide BUN 20 H Creatinine Glucose 195 H 07/02/18 07/02/18 07/03/18 06:06 06:06 04:07 RBC 3.24 L Hgb 9.9 L Hct 30.1 L RDW 18.1 H Lymph % (Auto) [place] % (Auto) Lymph # Seg Neutrophils % Seg Neuts % (Manual) 79.0 H Lymphocytes % (Manual) 9.0 L Monocytes % (Manual) Seg Neutrophils # Lymphocytes # (Manual) 0.8 L D-Dimer POC ABG pH Sodium Carbon Dioxide BUN 27 H 41 H Creatinine 1.3 H Glucose 273 H 223 H 07/06/18 07/06/18 05:04 05:04 RBC 3.43 L Hgb Hct RDW 18.0 H Lymph % (Auto) [place] % (Auto) Lymph # Seg Neutrophils % Seg Neuts % (Manual) 74.0 H Lymphocytes % (Manual) Monocytes % (Manual) 8.0 H Seg Neutrophils # Lymphocytes # (Manual) D-Dimer POC ABG pH Sodium 147 H Carbon Dioxide 35 H D BUN 34 H Creatinine Glucose Allied health notes reviewed: nursing
[2018-07-06 15:43] VITALS: BP 119/71
--- NOTE | 2018-07-07 00:25 | Discharge Summary ---
Providers - Providers Date of Admission: 06/30/18 23:11 Attending physician: ALBERT DIMAS MD 06/30/18 23:14 Consult to Physician [CONS] Routine Comment: CARMINE Consulting Provider: MARK HAAS Physician Instructions: WAS NOTIFIED. 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 07/01/18 14:15 Physical Therapy Evaluation and Treat [CONS] Routine Comment: Reason For Exam: Debility 07/01/18 14:17 Occupational Therapy Evaluate and Treat [CONS] Routine Comment: Reason For Exam: Debility 07/03/18 08:49 Consult to Case Management [CONS] Routine Services Needed at Discharge: Other Notified:: Case Management Phone number called:: [phone] Was contact made?: Yes If yes, spoke with:: Jessica Time called:: 08:52 Comment:: Case Management already working on SNF placement Additional Physician Instructions: Discharge planning, recommend [place] or SNF Primary care physician: VELIA STOCK Hospitalization Condition: Fair Hospital course: 68-year-old -[place] female with history of CHF, rheumatoid arthritis, hypertension, COPD, chronic respiratory failure with continuous home oxygen use of 2 L nasal cannula presented to [facility] ED with complaints of fever, chills, and cough with thick yellow to dark yellow sputum production x 1 week. Also, patient complained of back pain related to recent fall. Hip x-ray was unrevealing for any acute abnormalities. -she received steroids, nebs and abx, breathing rx and supplemental oxygen -her meds were optimized for chronic conditions -she was diuresed for CHF exacerbation -she has chronic opioid dependence, and pain med seeking behavior , she was continued on subuxone taper which she receives from pain clinic, she was counseled on opioid cessation -she received PT for deconditioning Diagnosis Acute exacerbation COPD, Pneumonia Acute exacerbation CHF Volume overload Acute on chronic respiratory failure Hypertension . History of rheumatoid arthritis chronic pain syndrome History of depression; Deconditioned; opioid dependence; Chronic pain; pain med seeking behavior Disposition: [id number] Time spent for discharge: 33 mins Core Measure Documentation - Palliative Care Palliative Care/ Comfort Measures: Not Applicable - Core Measures Any of the following diagnoses?: none Exam - Physical Exam Narrative exam: General.: Appears well, no distress, nontoxic HEENT: Moist mucous membranes, extraocular muscles intact, no lymphadenopathy Neck: supple Cardiac: S1-S2 heard Lungs: Decreased air entry Abdomen: soft , nontender, nondistended, bowel sounds positive Extremities: no edema clubbing or cyanosis Skin: no rash or lesions Neurologic: no gross focal deficits Psych: calm, and cooperative - Constitutional Vitals: Temp Pulse Resp BP Pulse Ox 98.9 F 90 20 119/71 96 07/06/18 15:32 07/06/18 15:32 07/06/18 15:32 07/06/18 15:32 07/06/18 15:32 Plan Follow up with: VELIA STOCK MD [Primary Care Provider] - 3-5 Days Prescriptions: cefUROXime [Ceftin] 250 mg PO Q12H #10 tablet predniSONE [Deltasone] 30 mg PO QDAY #5 tab
[2018-07-07] MEDS ORDERED: SUBOXONE 2 MG-0.5 MG SL SCH (10:00)
== END 2018-07-06 17:45 | DRG 291 ==
LOC: ED 17:47 → 2B-ACE 23:11
PROVIDERS: ADMIT Internal Medicine; ATTEND Internal Medicine
PROC: 4A033R1 Measurement of Arterial Saturation, Peripheral, Percutaneous Approach (ICD-10-PCS; principal; 2018-06-30)
DX: I11.0 Hypertensive heart disease with heart failure (principal); J18.9 Pneumonia, unspecified organism; J96.21 Acute and chronic respiratory failure with hypoxia; J44.1 Chronic obstructive pulmonary disease with (acute) exacerbation; J44.0 Chronic obstructive pulmonary disease with (acute) lower respiratory infection; F11.20 Opioid dependence, uncomplicated; I50.23 Acute on chronic systolic (congestive) heart failure; M06.9 Rheumatoid arthritis, unspecified; M54.9 Dorsalgia, unspecified; F32.9 Major depressive disorder, single episode, unspecified; K21.9 Gastro-esophageal reflux disease without esophagitis; M19.90 Unspecified osteoarthritis, unspecified site; G89.29 Other chronic pain; I27.20 Pulmonary hypertension, unspecified; Z99.81 Dependence on supplemental oxygen; Z79.899 Other long term (current) drug therapy; Z79.82 Long term (current) use of aspirin; Z65.8 Other specified problems related to psychosocial circumstances
CPT/HCPCS: 36415; 71045; 71275; 80048; 82803; 83880; 84484; 85007; 85025; 85379; 87040; 93005; 93010; 94640; 94760; 96365; 96375; G0378; J0696; J1650; J1885; J1940; J1956; J2270; J2405; J2930; J7512; Q9967

== ENCOUNTER 2018-09-01 02:13 | Emergency (ER) | payer MEDICARE ==
[2018-09-01 02:51] LABS: Basophils # (Auto) 0.1 K/mm3 (0.0-0.1); Basophils % (Auto) 0.9 % (0.0-1.8); Eosinophils # (Auto) 0.2 K/mm3 (0.0-0.4); Eosinophils % (Auto) 2.1 % (0.0-4.3); Hematocrit 35.7 % (30.3-42.9); Lymphocytes # (Auto) 1.5 K/mm3 (1.2-5.4); Lymphocytes % (Auto) 19.8 % (13.4-35.0); Mean Corpuscular HGB Conc 34 % (30-34); Mean Corpuscular Volume 93 fl (79-97); Monocytes # (Auto) 0.6 K/mm3 (0.0-0.8); Monocytes % (Auto) 7.9 % (0.0-7.3); Platelet Count 260 K/mm3 (140-440); Red Blood Count 3.83 M/mm3 (3.65-5.03); Red Cell Distribution Width 18.9 % (13.2-15.2)
[2018-09-01 03:10] LABS: Alanine Aminotransferase 11 units/L (7-56); Albumin 4.1 g/dL (3.9-5); BUN/Creatinine Ratio 12; Blood Urea Nitrogen 12 mg/dL (7-17); Calcium 9.7 mg/dL (8.4-10.2); Hemolysis Index 19
--- NOTE | 2018-09-01 03:37 | XRay Report ---
CHEST 1 VIEW INDICATION: chest pain. COMPARISON: None. FINDINGS: Support devices: None. Heart: Normal. Lungs/Pleura: No acute pulmonary or pleural findings. IMPRESSION: 1. No acute findings. Signer Name: Chaim Don MD Signed: 09/01/2018 3:33 AM Workstation Name: [id number]
[2018-09-01 05:09] VITALS: BP 162/104
--- NOTE | 2018-09-01 05:41 | Cat Scan Report ---
CTA CHEST WITH IV CONTRAST INDICATION: chest pain. TECHNIQUE: Axial CT images were obtained through the chest after injection of IV contrast. 3 plane MIP reconstru ctions were produced. All CT scans at this location are performed using CT dose reduction for ALARA b y means of automated exposure control. COMPARISON: CT 06/30/2018. FINDINGS: Pulmonary Arteries: No pulmonary emboli. Thoracic Aorta: No acute abnormality. Heart: Normal. Coronary Arteries: No significant calcification. Lungs: Within the posterior inferior left lower lobe. Mild peribronchovascular reticulonodular diseas e. Lungs are otherwise clear. Previously seen suprahilar left upper lobe nodular airspace disease has resolved. Mild emphysematous changes are noted. There is mild diffuse bronchiectasis. Pleura: No pleural effusion. No pneumothorax. Lymph Nodes: No significant adenopathy. Additional Findings: None. Upper Abdomen: No acute findings. Skeletal Structures: There is slight interval increase in the degree of height loss at the anterior c ompression deformity of the L1 vertebral body. IMPRESSION: 1. No CT evidence for pulmonary embolism. 2. Focal lower airways disease in the left lung base, new since the prior. This is likely infectious/ inflammatory in etiology. 3. Slight interval increase in the degree of height loss at the mild L1 compression deformity. Signer Name: Chaim Don MD Signed: 09/01/2018 5:36 AM Workstation Name: [id number]
--- NOTE | 2018-09-01 05:42 | Emergency Department Report ---
ED Abdominal Pain HPI - General Chief Complaint: Abdominal Pain Stated Complaint: ABD PAIN/IRREGULAR HEARTBEAT Time Seen by Provider: 09/01/18 02:35 Source: EMS Mode of arrival: Stretcher Limitations: No Limitations - History of Present Illness Initial Comments: 68-year-old female history of COPD, CHF, chronic pain, narcotic dependence presents to ED with complaint of left-sided chest pain 1 day and abdominal pain 1 week. Patient states she was diagnosed with shingles, and this is what is causing her abdominal pain, located in the right lower abdomen around to her back. Patient denies fever, nausea, vomiting. MD Complaint: abdominal pain -: week(s) (1) Location: RLQ Radiation: R flank Migration to: no migration Severity: moderate Quality: sharp Consistency: constant Improves With: nothing Worsens With: nothing Context: other (diagnosed with shingles) Associated Symptoms: denies: nausea, vomiting, fever - Related Data Previous Rx's Medication Instructions Recorded Last Taken Type LORazepam [Ativan] 0.5 mg PO BID #20 tablet 05/26/18 1 Day Ago Rx ~05/29/18 ALBUTEROL NEB's [Proventil 0.083% 2.5 mg IH Q4HRT PRN #120 nebu 06/05/18 Unknown Rx NEBS] Albuterol Sulfate [Ventolin Hfa] 2 puff IH Q4H #1 hfa.aer.ad 06/05/18 Unknown Rx Amlodipine Besylate [Norvasc] 10 mg PO DAILY #30 tablet 06/05/18 Unknown Rx Aspirin EC 81 mg PO QDAY #30 tablet 06/05/18 Unknown Rx Budesonide/Formoterol Fumarate 10.2 gm IH BID #1 hfa.aer.ad 06/05/18 Unknown Rx [Symbicort 160-4.5 Mcg Inhaler] DULoxetine [Cymbalta] 60 mg PO QDAY #30 capsule 06/05/18 Unknown Rx Furosemide [Lasix TAB] 40 mg PO QDAY #30 tablet 06/05/18 Unknown Rx Losartan [Cozaar] 50 mg PO QDAY #30 tablet 06/05/18 Unknown Rx Metoprolol [Lopressor TAB] 50 mg PO TID #90 tablet 06/05/18 Unknown Rx Potassium Chloride [K-Dur] 20 meq PO DAILY #30 tablet 06/05/18 Unknown Rx Tiotropium [place] [Spiriva 1 puff IH DAILY #1 mist.inhal 06/05/18 Unknown Rx Respimat] busPIRone [Buspar] 7.5 mg PO BID #60 tablet 06/05/18 Unknown Rx guaiFENesin [Robitussin] 200 mg PO Q4HR #20 oral.liqd 06/05/18 Unknown Rx hydrOXYzine HCL [Atarax] 25 mg PO Q6H PRN #60 tablet 06/05/18 Unknown Rx cefUROXime [Ceftin] 250 mg PO Q12H #10 tablet 07/03/18 Unknown Rx predniSONE [Deltasone] 30 mg PO QDAY #5 tab 07/03/18 Unknown Rx Azithromycin [Zithromax Tri-Marcello] 500 mg PO QDAY #3 tablet 09/01/18 Unknown Rx Allergies Allergy/AdvReac Type Severity Reaction Status Date / Time No Known Allergies Allergy Verified 05/22/18 09:54 ED Review of Systems ROS: Stated complaint: ABD PAIN/IRREGULAR HEARTBEAT Other details as noted in HPI Comment: All other systems reviewed and negative Constitutional: denies: chills, fever Respiratory: shortness of breath Cardiovascular: chest pain, palpitations Gastrointestinal: abdominal pain. denies: nausea, vomiting Skin: rash ED Past Medical Hx - Past Medical History Previous Medical History?: Yes Hx Hypertension: Yes Hx Heart Attack/AMI: No Hx Congestive Heart Failure: Yes Hx Deep Vein Thrombosis: No Hx Pulmonary Embolism: No Hx GERD: Yes Hx Arthritis: Yes Hx Asthma: No Hx COPD: Yes Hx Tuberculosis: No Additional medical history: chronic back pain - Surgical History Hx Coronary Stent: No Hx Pacemaker: No Hx Internal Defibrillator: No Additional Surgical History: hernia repair and lower back/ cycst removal - Social History Smoking Status: Never Smoker Substance Use Type: None - Medications Home Medications: Home Medications Medication Instructions Recorded Confirmed Last Taken Type LORazepam [Ativan] 0.5 mg PO BID #20 tablet 05/26/18 07/01/18 1 Day Ago Rx ~05/29/18 ALBUTEROL NEB's [Proventil 0.083% 2.5 mg IH Q4HRT PRN #120 nebu 06/05/18 07/01/18 Unknown Rx NEBS] Albuterol Sulfate [Ventolin Hfa] 2 puff IH Q4H #1 hfa.aer.ad 06/05/18 07/01/18 Unknown Rx Amlodipine Besylate [Norvasc] 10 mg PO DAILY #30 tablet 06/05/18 07/01/18 Unknown Rx Aspirin EC 81 mg PO QDAY #30 tablet 06/05/18 07/01/18 Unknown Rx Budesonide/Formoterol Fumarate 10.2 gm IH BID #1 hfa.aer.ad 06/05/18 07/01/18 Unknown Rx [Symbicort 160-4.5 Mcg Inhaler] DULoxetine [Cymbalta] 60 mg PO QDAY #30 capsule 06/05/18 07/01/18 Unknown Rx Furosemide [Lasix TAB] 40 mg PO QDAY #30 tablet 06/05/18 07/01/18 Unknown Rx Losartan [Cozaar] 50 mg PO QDAY #30 tablet 06/05/18 07/01/18 Unknown Rx Metoprolol [Lopressor TAB] 50 mg PO TID #90 tablet 06/05/18 07/01/18 Unknown Rx Potassium Chloride [K-Dur] 20 meq PO DAILY #30 tablet 06/05/18 07/01/18 Unknown Rx Tiotropium [place] [Spiriva 1 puff IH DAILY #1 mist.inhal 06/05/18 07/01/18 Unknown Rx Respimat] busPIRone [Buspar] 7.5 mg PO BID #60 tablet 06/05/18 07/01/18 Unknown Rx guaiFENesin [Robitussin] 200 mg PO Q4HR #20 oral.liqd 06/05/18 07/01/18 Unknown Rx hydrOXYzine HCL [Atarax] 25 mg PO Q6H PRN #60 tablet 06/05/18 07/01/18 Unknown Rx cefUROXime [Ceftin] 250 mg PO Q12H #10 tablet 07/03/18 Unknown Rx predniSONE [Deltasone] 30 mg PO QDAY #5 tab 07/03/18 Unknown Rx Azithromycin [Zithromax Tri-Marcello] 500 mg PO QDAY #3 tablet 09/01/18 Unknown Rx ED Physical Exam - General Limitations: No Limitations General appearance: alert, in no apparent distress - Head Head exam: Present: atraumatic, normocephalic - Eye Eye exam: Present: normal appearance - ENT ENT exam: Present: normal exam - Neck Neck exam: Present: normal inspection - Respiratory Respiratory exam: Present: normal lung sounds bilaterally, chest wall tenderness. Absent: respiratory distress - Cardiovascular Cardiovascular Exam: Present: normal rhythm, tachycardia - GI/Abdominal GI/Abdominal exam: Present: soft, tenderness (in area of shingles rash which is along the right sided T8 dermatome). Absent: distended - Extremities Exam Extremities exam: Present: normal inspection - Neurological Exam Neurological exam: Present: alert, oriented X3 - Psychiatric Psychiatric exam: Present: normal affect, normal mood - Skin Skin exam: Present: rash (healing shingles rash along right T8 dermatome) ED Course Vital Signs 09/01/18 09/01/18 09/01/18 02:21 02:28 02:30 Temperature 98.9 F Pulse Rate 114 H 162 H Respiratory 22 22 24 Rate Blood Pressure 160/100 139/99 Blood Pressure 160/100 [Right] O2 Sat by Pulse 99 100 Oximetry 09/01/18 09/01/18 09/01/18 02:46 03:00 03:15 Temperature Pulse Rate 115 H 111 H 104 H Respiratory 18 12 16 Rate Blood Pressure 162/105 167/110 168/107 Blood Pressure [Right] O2 Sat by Pulse 97 99 99 Oximetry 09/01/18 09/01/18 09/01/18 03:30 03:45 04:00 Temperature Pulse Rate 99 H 98 H 97 H Respiratory 18 18 21 Rate Blood Pressure 161/110 167/107 172/106 Blood Pressure [Right] O2 Sat by Pulse 99 98 100 Oximetry 09/01/18 09/01/18 09/01/18 04:15 04:30 04:50 Temperature Pulse Rate 98 H 100 H Respiratory 20 20 Rate Blood Pressure 166/100 172/106 162/104 Blood Pressure [Right] O2 Sat by Pulse 99 100 98 Oximetry ED Medical Decision Making - Lab Data Result diagrams: 09/01/18 02:44 09/01/18 02:44 - EKG Data -: EKG Interpreted by Me EKG shows normal: sinus rhythm, axis, QRS complexes, ST-T waves Rate: tachycardia (rate 105) - Radiology Data Radiology results: report reviewed, image reviewed - Medical Decision Making - CXR normal - possible LLL infiltrate on CTA Chest; negative for PE - EKG initially showed sinus tachycardia, HR currently normal without intervention; troponin and BNP normal - pt is afebrile, no resp distress, not hypoxic on her prescribed 2L O2, WBCs normal; however due to possible infiltrate willcover with antibiotics - recent cardiac workup with negative stress test on 05/27/18 - will d/c at this time, advised PCP follow-up - Differential Diagnosis shingles, PE, pneumonia Critical care attestation.: If time is entered above; I have spent that time in minutes in the direct care of this critically ill patient, excluding procedure time. ED Disposition Clinical Impression: Shingles, Atypical chest pain, Pneumonia Disposition: TO HOME OR SELFCARE Is pt being admited?: No Condition: Stable Instructions: Abdominal Pain (ED), Chest Pain (ED), Bacterial Pneumonia (ED) Prescriptions: Azithromycin [Zithromax Tri-Marcello] 500 mg PO QDAY #3 tablet Referrals: PRIMARY CARE, [Primary Care Provider] - 3-5 Days Time of Disposition: 05:51
[2018-09-01] MEDS ORDERED: TORADOL IV ONE (06:03)
== END 2018-09-01 06:40 | disposition home or self-care (01) ==
LOC: ED 02:13
DX: J18.9 Pneumonia, unspecified organism (principal); R07.89 Other chest pain; B02.9 Zoster without complications; J44.9 Chronic obstructive pulmonary disease, unspecified; I11.0 Hypertensive heart disease with heart failure; I50.9 Heart failure, unspecified; K21.9 Gastro-esophageal reflux disease without esophagitis; M19.90 Unspecified osteoarthritis, unspecified site; M54.9 Dorsalgia, unspecified; G89.29 Other chronic pain; Z98.890 Other specified postprocedural states; Z79.82 Long term (current) use of aspirin; Z79.899 Other long term (current) drug therapy
CPT/HCPCS: 36415; 71045; 71275; 80053; 83880; 84484; 85025; 85379; 93005; 93010; 96374; 99284; J1885; Q9967

== ENCOUNTER 2018-09-23 12:49 | Inpatient (IN) | payer MEDICARE ==
[2018-09-23] MEDS ORDERED: PERCOCET 5/325 ONE (14:29)
[2018-09-23] MEDS ORDERED: PROVENTIL IH ONE (21:34)
[2018-09-23] MEDS: KEPPRA PO SCH (21:37)
[2018-09-23] MEDS: PERCOCET 5/325 PO PRN (21:38)
[2018-09-23] MEDS: MACROBID PO SCH (21:38)
[2018-09-23] MEDS ORDERED: ATIVAN PO ONE (22:00)
[2018-09-24] MEDS: PROVENTIL IH SCH ×3 (08:38→15:54)
[2018-09-24] MEDS: DEMADEX PO SCH (09:22)
[2018-09-24] MEDS: K-DUR PO SCH (09:22)
[2018-09-24] MEDS: MACROBID PO SCH ×2 (09:22→21:01)
[2018-09-24] MEDS: PERCOCET 5/325 PO PRN ×3 (09:22→21:01)
--- NOTE | 2018-09-24 09:23 | History and Physical Report ---
GP History & Physical - History of Present Illness Date of admission: 09/23/18 Date of Examination: 09/24/18 Reason for Admission: Danger to self, Detox/Rehab, Severe anxiety/depression Chief Complaint: Depressed and suicidal History of Present Illness: The patient is a 68yo single disabled AAF with history of MDD, arthritis, COPD (on supplemental o2), GERD, heart failure, hypertension, and chronic back pain. She presents with depressed mood and suicidal thoughts. In my interview with her, she states that she wants to stop taking pain pills because she feels that she is hooked on them and she is not able to lead a normal life. She reports being on pain pills for 4 to 5 years. She currently takes Percocet 15mg tid; was taking much more before. She reports being depressed, states "I have given up" "I have nothing to live for". She has no specific suicidal plan. She endorses auditory hallucinations with derogatory contents. No paranoia. She denies abusing other substances. Legal Status: Voluntary Patient Problems: Current Active Problems MDD (major depressive disorder), recurrent, severe, with psychosis (Acute) Opioid use disorder, severe, dependence (Acute) Reaction to Hospitalization: Accepting Substance History - Substance History Drug Use: cocaine, opiates Alcohol Use: No Past psychiatric history - Past Medical History Past Medical History: arthritis, COPD, GERD, heart failure - past Psychiatric treatment and history Psych: Depression psychiatric treatment history: Admitted to [facility] in recent past. No suicide attempt - Social History Social history: single, lives with family (completed 9th Grade, disabled, no legal problems and denies access to guns) Review of Systems All systems: negative Constitutional: chronic pain Psychiatric: suicidal ideation, depression Results - Results Labs/Vitals: Last Vital Signs Temp 97.7 F 09/23/18 22:00 Pulse 79 09/23/18 22:00 Resp 18 09/23/18 22:00 BP 140/68 09/23/18 22:00 Pulse Ox 95 09/23/18 22:00 Physical Examination - Constitutional Vitals: Vital Signs Temp Pulse Resp BP Pulse Ox 97.7 F 79 18 140/68 95 09/23/18 22:00 09/23/18 22:00 09/23/18 22:00 09/23/18 22:00 09/23/18 22:00 Temperature -Last 24 Hours Temperature 97.7 F Temperature 98.4 F General appearance: Present: no acute distress - EENT Eyes: Present: PERRL, EOM intact ENT: hearing intact, clear oral mucosa - Neck Neck: Present: supple, normal ROM - Respiratory Respiratory effort: normal Mental Status Exam - Vital signs Last Vital Signs Temp 97.7 F 09/23/18 22:00 Pulse 79 09/23/18 22:00 Resp 18 09/23/18 22:00 BP 140/68 09/23/18 22:00 Pulse Ox 95 09/23/18 22:00 - Exam Orientation: time, place, person Affect: depressed Mood: congruent with affect Thought Process: Intact Perceptions: hallucinations Speech: normal rate and pattern Concentration: focused Motor activity: normal Level of consciousness: alert Sleep Symptoms: Difficulty Falling Asleep Appetite: decreased Interaction: cooperative Mini mental status exam(if necessary): 24-30 Assessment and Plan - Psychiatric problem (1) Opioid use disorder, severe, dependence Current Visit: Yes Status: Acute plan to address problem: Patient will be admitted for inpatient psychiatric evaluation, medication adjustment and close monitoring The patient's behavior, mood, sleep and appetite will be closely monitored. Patient will be enrolled in individual and group therapeutic sessions and encouraged to attend. Patient will be provided with a safe and structured environment. Patient's physical health needs will be addressed by the Hospitalist. Social Assessment will be completed and the Patrol Guard will work with patient and family to ensure a suitable and safe disposition Medication adjustment will be made as clinically indicated The patient agreed on the treatment plan, understood the risk, benefit, alternative treatment, potential consequence of no treatment, and gave informed consent. (2) MDD (major depressive disorder), recurrent, severe, with psychosis Current Visit: Yes Status: Acute plan to address problem: Patient will be admitted for inpatient psychiatric evaluation, medication adjustment and close monitoring The patient's behavior, mood, sleep and appetite will be closely monitored. Patient will be enrolled in individual and group therapeutic sessions and encouraged to attend. Patient will be provided with a safe and structured environment. Patient's physical health needs will be addressed by the Hospitalist. Social Assessment will be completed and the Patrol Guard will work with patient and family to ensure a suitable and safe disposition Medication adjustment will be made as clinically indicated The patient agreed on the treatment plan, understood the risk, benefit, alternative treatment, potential consequence of no treatment, and gave informed consent. Physician Certification - Certification Statement Physician Certification Statement: This is an acknowledgement statement that FARSHAD RIVERA is a 68 year old F who requires inpatient psychiatric admission for treatment which could reasonably be expected to improve the patient's condition for Estimated period of time patient will need to remain in the hospital: [ ] Plan for post-hospital care: [ ]
[2018-09-24] MEDS: KEPPRA PO SCH ×2 (09:24→21:00)
--- NOTE | 2018-09-24 20:11 | Consultation ---
History of Present Illness - Reason for Consult Consult date: 09/24/18 Managment of COPD, HTN Requesting physician: IAN SAHU - History of Present Illness 68-year-old female with history of cocaine abuse, severe anxiety, depression, COPD, chronic respiratory failure on 2L supplemental oxygen, CHF, GERD, HTN, arthritis, chronic back pain presented to [facility] ED on 09/22/18 with complaints of abdominal pain. CT abdomen and pelvis was negative for acute abnormality. She was found to have a urinary tract infection and started on microbid. Patient also complained of SOB and cocaine addiction. She was treated with nebulizer treatments and her symptoms improved. She was admitted to detox/rehabilitation for treatment of cocaine addiction. Initially she denied plans to self harm or harm others. When reassessed she endorsed thoughts of self-harm, and articulated a plan. She was found to be at moderate risk by the Rice suicide score. She did not meet the 1013 criteria as per her psychiatric consultation. However, the patient was interested in participating in a voluntary stay, and subsequently admitted to the [facility] psych unit for further evaluation and treatment. Past History Past Medical History: arthritis, COPD (on supplemental o2), GERD, heart failure, hypertension, other (back pain, severe anxiety, depression) Past Surgical History: hernia repair, Other ( lower back/ cycst removal) Social history: other ( Cocaine abuse ) Family history: no significant family history Medications and Allergies Allergies Allergy/AdvReac Type Severity Reaction Status Date / Time No Known Allergies Allergy Verified 05/22/18 09:54 Home Medications Medication Instructions Recorded Confirmed Last Taken Type Potassium Chloride [K-Dur] 20 meq PO DAILY #30 tablet 06/05/18 09/23/18 09/21/18 Rx Azithromycin [Zithromax Tri-Marcello] 500 mg PO QDAY #3 tablet 09/01/18 09/22/18 Unknown Rx Torsemide [Demadex] 40 mg PO QDAY 09/22/18 09/23/18 09/21/18 History levETIRAcetam [Keppra TAB] 500 mg PO BID 09/22/18 09/23/18 09/21/18 History Nitrofurantoin [place]/M-Cryst 100 mg PO Q12HR #13 capsule 09/23/18 09/23/18 09/23/18 10:00 Rx [Macrobid CAP] Active Meds: Active Medications Albuterol (Proventil) 2.5 mg IH QIDRT [facility] Last Admin: 09/24/18 15:54 Dose: 2.5 mg Documented by: Levetiracetam (Keppra) 500 mg PO BID [facility] Last Admin: 09/24/18 09:24 Dose: 500 mg Documented by: Nitrofurantoin Macrocrystals (Macrobid) 100 mg PO Q12HR [facility] Stop: 09/29/18 22:01 Last Admin: 09/24/18 09:22 Dose: 100 mg Documented by: Oxycodone/Acetaminophen (Percocet 5/325) 1 tab PO Q4H PRN PRN Reason: Pain, Moderate (4-6) Last Admin: 09/24/18 16:00 Dose: 1 tab Documented by: Potassium Chloride (K-Dur) 20 meq PO QDAY [facility] Last Admin: 09/24/18 09:22 Dose: 20 meq Documented by: Torsemide (Demadex) 40 mg PO QDAY [facility] Last Admin: 09/24/18 09:22 Dose: 40 mg Documented by: Review of Systems All systems: negative (reviewed and no additional remarkable complaints except as noted below) Gastrointestinal: abdominal pain Musculoskeletal: other (back pain) Psychiatric: depression Exam - Physical Exam Narrative exam: Physical exam General appearance: Present: No acute distress, Alert and oriented 3, older adult female - EENT Eyes: Present: PERRL, EOM intact ENT: hearing intact, wears dentures - Neck Neck: Present: supple, normal ROM - Respiratory Respiratory effort: Non-labored, on 2 L NC supplemental oxygen Respiratory: bilateral: diminished (bases) - Cardiovascular Heart rate: 111 (bpm) Rhythm: ST Heart Sounds: Present: S1 & S2. Absent: rub, click - Extremities Extremities: no ischemia, pulses intact, - Peripheral Assessment Peripheral Pulses: within normal limits - Abdominal General gastrointestinal: soft, non-tender, normal bowel sounds - Integumentary Integumentary: Present: warm, dry - Musculoskeletal Musculoskeletal: able to move all extremities, normal gait -Neurological Neurological: CN II-XII grossly intact - Psychiatric Psychiatric: cooperative - Constitutional Vitals: Temp Pulse Resp BP Pulse Ox 98.4 F 80 20 149/78 96 09/24/18 10:00 09/24/18 15:50 09/24/18 16:00 09/24/18 10:00 09/24/18 10:00 Results - Imaging and Cardiology CT scan - abdomen: report reviewed (FINDINGS: No acute disease is seen in either lower lung. High density focus within the gallbladder lumen likely represents a small gallstone. The liver, spleen and pancreas are normal. No urinary calculi. Bilateral renal cysts are present. No small bowel distention. No mesenteric or retroperitoneal adenopathy.IMPRESSION:1. Cholelithiasis. 2. Fibroid uterus.3. No acute abdominal or pelvic abnormalities. ), image reviewed Assessment and Plan 68-year-old female with history of cocaine abuse, severe anxiety, depression, COPD, chronic respiratory failure on 2L supplemental oxygen, CHF, GERD, HTN, arthritis, chronic back pain. We are asked to see this patient in consultation for management of medical conditions. Urinary tract infection -Urine culture positive for enterococcus faecalis -on IV Microbid COPD -Scheduled DuoNeb's and Pulmicort -Albuterol when necessary Chronic respiratory failure -On continuous 2 L nasal cannula -Monitor saturation -Nebulizer treatments as needed HTN -Monitor BP -IV hydralazine when necessary -Continue home antihypertensives to optimize BP History of CHF -Continue heart failure meds Cocaine abuse -Being managed per primary Thank you for the consult and we will follow along.
[2018-09-24] MEDS ORDERED: APRESOLINE IV PRN (20:19)
[2018-09-24] MEDS ORDERED: PROVENTIL IH PRN (20:20)
[2018-09-24] MEDS ORDERED: CATAPRES PO SCH (22:00)
[2018-09-24] MEDS ORDERED: MACROBID PO SCH (22:00)
[2018-09-24] MEDS: REMERON PO SCH (22:25)
[2018-09-25] MEDS: PROVENTIL IH SCH (01:55)
[2018-09-25] MEDS: IMODIUM PO SCH ×3 (09:02→20:18)
[2018-09-25] MEDS ORDERED: K-DUR PO SCH (10:00)
[2018-09-25] MEDS ORDERED: NON-FORMULARY (Torsemide [Demadex] 40 MG) PO SCH (10:00)
[2018-09-25] MEDS ORDERED: GEODON IM PRN (10:30)
[2018-09-25] MEDS: KEPPRA PO SCH ×2 (10:33→21:50)
[2018-09-25] MEDS: VISTARIL PO SCH ×4 (10:33→21:50)
[2018-09-25] MEDS: K-DUR PO SCH (10:34)
[2018-09-25] MEDS: MACROBID PO SCH ×2 (10:35→21:50)
[2018-09-25] MEDS: DEMADEX PO SCH (10:35)
[2018-09-25] MEDS: CATAPRES PO SCH ×3 (10:39→20:19)
[2018-09-25] MEDS: CYMBALTA PO SCH (10:43)
[2018-09-25] MEDS: DUONEB *Not for PRN Use IH SCH ×3 (12:42→22:10)
[2018-09-25] MEDS: PULMICORT IH SCH ×2 (12:42→22:10)
[2018-09-25] MEDS: NEURONTIN PO SCH ×2 (13:58→20:17)
--- NOTE | 2018-09-25 15:35 | Progress Note ---
Subjective Date of service: 09/25/18 Principal diagnosis: Opioid use disorder, MDD severe Subjective Comment: Patient is in distress this morning. She is restless, tearful and complains of being in pains all over her body. She reports being depressed and suicidal. Objective - Criteria for Continued Treatment Criteria for Continued Treatment: Improving Level of Functioning, Stablizing Level of Functioning, Improving Emotional/Socia - Mental Status Mental Status: Alert - Objective Observation Participation Level: Minimal Assessment and Plan - Patient Problems (1) Opioid use disorder, severe, dependence Current Visit: Yes Status: Acute Plan to address problem: Patient will be admitted for inpatient psychiatric evaluation, medication adjustment and close monitoring The patient's behavior, mood, sleep and appetite will be closely monitored. Patient will be enrolled in individual and group therapeutic sessions and encouraged to attend. Patient will be provided with a safe and structured environment. Patient's physical health needs will be addressed by the Hospitalist. Social Assessment will be completed and the Chip Mucker will work with patient and family to ensure a suitable and safe disposition Medication adjustment will be made as clinically indicated The patient agreed on the treatment plan, understood the risk, benefit, alternative treatment, potential consequence of no treatment, and gave informed consent. (2) MDD (major depressive disorder), recurrent, severe, with psychosis Current Visit: Yes Status: Acute Plan to address problem: Patient will be admitted for inpatient psychiatric evaluation, medication adjustment and close monitoring The patient's behavior, mood, sleep and appetite will be closely monitored. Patient will be enrolled in individual and group therapeutic sessions and encouraged to attend. Patient will be provided with a safe and structured environment. Patient's physical health needs will be addressed by the Hospitalist. Social Assessment will be completed and the Chip Mucker will work with patient and family to ensure a suitable and safe disposition Medication adjustment will be made as clinically indicated The patient agreed on the treatment plan, understood the risk, benefit, alternative treatment, potential consequence of no treatment, and gave informed consent.
[2018-09-25] MEDS: REMERON PO SCH (21:50)
[2018-09-26] MEDS: CATAPRES PO SCH ×3 (09:47→20:54)
[2018-09-26] MEDS: K-DUR PO SCH (09:48)
[2018-09-26] MEDS: NEURONTIN PO SCH ×3 (09:48→20:55)
[2018-09-26] MEDS: DEMADEX PO SCH (09:48)
[2018-09-26] MEDS: IMODIUM PO SCH ×3 (09:49→20:55)
[2018-09-26] MEDS: VISTARIL PO SCH ×4 (09:49→21:02)
[2018-09-26] MEDS: MACROBID PO SCH ×2 (09:49→21:02)
[2018-09-26] MEDS: CYMBALTA PO SCH (09:49)
[2018-09-26] MEDS: KEPPRA PO SCH ×2 (09:50→21:02)
[2018-09-26] MEDS: PULMICORT IH SCH ×2 (10:37→21:46)
[2018-09-26] MEDS: DUONEB *Not for PRN Use IH SCH ×3 (10:37→21:46)
[2018-09-26] MEDS: REMERON PO SCH (21:02)
[2018-09-27] MEDS: CATAPRES PO SCH ×3 (08:53→20:08)
[2018-09-27] MEDS: NEURONTIN PO SCH ×3 (08:54→20:10)
[2018-09-27] MEDS: IMODIUM PO SCH ×3 (08:54→20:10)
[2018-09-27] MEDS: CYMBALTA PO SCH (09:17)
[2018-09-27] MEDS: DEMADEX PO SCH (09:17)
[2018-09-27] MEDS: MACROBID PO SCH ×2 (09:18→21:59)
[2018-09-27] MEDS: KEPPRA PO SCH ×2 (09:18→21:59)
[2018-09-27] MEDS: K-DUR PO SCH (09:18)
[2018-09-27] MEDS: PULMICORT IH SCH ×2 (12:18→20:56)
[2018-09-27] MEDS: DUONEB *Not for PRN Use IH SCH ×3 (12:18→20:56)
[2018-09-27] MEDS: REMERON PO SCH (21:59)
[2018-09-28] MEDS: PULMICORT IH SCH ×2 (07:37→20:38)
[2018-09-28] MEDS: DUONEB *Not for PRN Use IH SCH ×3 (07:37→20:38)
[2018-09-28] MEDS: NEURONTIN PO SCH ×3 (08:26→20:04)
[2018-09-28] MEDS: IMODIUM PO SCH ×3 (08:26→20:04)
[2018-09-28] MEDS: CATAPRES PO SCH ×3 (08:31→20:03)
[2018-09-28] MEDS: MACROBID PO SCH ×2 (09:07→21:05)
[2018-09-28] MEDS: KEPPRA PO SCH ×2 (09:07→21:05)
[2018-09-28] MEDS: CYMBALTA PO SCH (09:07)
[2018-09-28] MEDS: K-DUR PO SCH (09:07)
[2018-09-28] MEDS: VISTARIL PO PRN ×2 (09:07→21:05)
[2018-09-28] MEDS: DEMADEX PO SCH (09:08)
--- NOTE | 2018-09-28 11:22 | Progress Note ---
Subjective Date of service: 09/26/18 Principal diagnosis: Opioid use disorder, MDD severe Subjective Comment: Patient reports feeling better today. She is very sedated but no withdrawal symptoms. She is tolerating detox treatment. Objective - Criteria for Continued Treatment Criteria for Continued Treatment: Improving Level of Functioning, Stablizing Level of Functioning, Improving Emotional/Socia, Decreasing Frequency of Ho spitalization - Mental Status Mental Status: Alert - Objective Observation Participation Level: Minimal Assessment and Plan - Patient Problems (1) Opioid use disorder, severe, dependence Current Visit: Yes Status: Acute Plan to address problem: Patient will be admitted for inpatient psychiatric evaluation, medication adjustment and close monitoring The patient's behavior, mood, sleep and appetite will be closely monitored. Patient will be enrolled in individual and group therapeutic sessions and encouraged to attend. Patient will be provided with a safe and structured environment. Patient's physical health needs will be addressed by the Hospitalist. Social Assessment will be completed and the Pastry Finisher will work with patient and family to ensure a suitable and safe disposition Medication adjustment will be made as clinically indicated The patient agreed on the treatment plan, understood the risk, benefit, alternative treatment, potential consequence of no treatment, and gave informed consent. (2) MDD (major depressive disorder), recurrent, severe, with psychosis Current Visit: Yes Status: Acute Plan to address problem: Patient will be admitted for inpatient psychiatric evaluation, medication adjustment and close monitoring The patient's behavior, mood, sleep and appetite will be closely monitored. Patient will be enrolled in individual and group therapeutic sessions and encouraged to attend. Patient will be provided with a safe and structured environment. Patient's physical health needs will be addressed by the Hospitalist. Social Assessment will be completed and the Pastry Finisher will work with patient and family to ensure a suitable and safe disposition Medication adjustment will be made as clinically indicated The patient agreed on the treatment plan, understood the risk, benefit, alternative treatment, potential consequence of no treatment, and gave informed consent.
--- NOTE | 2018-09-28 11:24 | Progress Note ---
Subjective Date of service: 09/27/18 Principal diagnosis: Opioid use disorder, MDD severe Subjective Comment: Patient continues to improve. She is less sedated. She denies cravings. She is tolerating detox treatment. Objective - Criteria for Continued Treatment Criteria for Continued Treatment: Improving Level of Functioning, Stablizing Level of Functioning, Improving Emotional/Socia, Decreasing Frequency of Hospitalization - Mental Status Mental Status: Alert - Objective Observation Participation Level: Moderate Assessment and Plan - Patient Problems (1) Opioid use disorder, severe, dependence Current Visit: Yes Status: Acute Plan to address problem: Patient will be admitted for inpatient psychiatric evaluation, medication adjustment and close monitoring The patient's behavior, mood, sleep and appetite will be closely monitored. Patient will be enrolled in individual and group therapeutic sessions and encouraged to attend. Patient will be provided with a safe and structured environment. Patient's physical health needs will be addressed by the Hospitalist. Social Assessment will be completed and the Airset Caster will work with patient and family to ensure a suitable and safe disposition Medication adjustment will be made as clinically indicated The patient agreed on the treatment plan, understood the risk, benefit, alternative treatment, potential consequence of no treatment, and gave informed consent. (2) MDD (major depressive disorder), recurrent, severe, with psychosis Current Visit: Yes Status: Acute Plan to address problem: Patient will be admitted for inpatient psychiatric evaluation, medication adjustment and close monitoring The patient's behavior, mood, sleep and appetite will be closely monitored. Patient will be enrolled in individual and group therapeutic sessions and encouraged to attend. Patient will be provided with a safe and structured environment. Patient's physical health needs will be addressed by the Hospitalist. Social Assessment will be completed and the Airset Caster will work with patient and family to ensure a suitable and safe disposition Medication adjustment will be made as clinically indicated The patient agreed on the treatment plan, understood the risk, benefit, alternative treatment, potential consequence of no treatment, and gave informed consent.
--- NOTE | 2018-09-28 11:26 | Progress Note ---
Subjective Date of service: 09/28/18 Principal diagnosis: Opioid use disorder, MDD severe Subjective Comment: Patient continues to improve. She is less sedated. She denies cravings. She is tolerating detox treatment. Unsafe to discharge patient - yet to complete detox treatment Objective - Criteria for Continued Treatment Criteria for Continued Treatment: Improving Level of Functioning, Stablizing Level of Functioning, Improving Emotional/Socia, Decreasing Frequency of Hospitalization - Mental Status Mental Status: Alert - Objective Observation Participation Level: Moderate Assessment and Plan - Patient Problems (1) Opioid use disorder, severe, dependence Current Visit: Yes Status: Acute Plan to address problem: Patient will be admitted for inpatient psychiatric evaluation, medication adjustment and close monitoring The patient's behavior, mood, sleep and appetite will be closely monitored. Patient will be enrolled in individual and group therapeutic sessions and encouraged to attend. Patient will be provided with a safe and structured environment. Patient's physical health needs will be addressed by the Hospitalist. Social Assessment will be completed and the Radio Intelligence Operator will work with mirela ent and family to ensure a suitable and safe disposition Medication adjustment will be made as clinically indicated The patient agreed on the treatment plan, understood the risk, benefit, alternative treatment, potential consequence of no treatment, and gave informed consent. (2) MDD (major depressive disorder), recurrent, severe, with psychosis Current Visit: Yes Status: Acute Plan to address problem: Patient will be admitted for inpatient psychiatric evaluation, medication adjustment and close monitoring The patient's behavior, mood, sleep and appetite will be closely monitored. Patient will be enrolled in individual and group therapeutic sessions and encouraged to attend. Patient will be provided with a safe and structured environment. Patient's physical health needs will be addressed by the Hospitalist. Social Assessment will be completed and the Radio Intelligence Operator will work with patie nt and family to ensure a suitable and safe disposition Medication adjustment will be made as clinically indicated The patient agreed on the treatment plan, understood the risk, benefit, alternative treatment, potential consequence of no treatment, and gave informed consent.
[2018-09-28] MEDS: IBUPROFEN PO PRN (20:04)
[2018-09-28] MEDS: REMERON PO SCH (21:05)
[2018-09-29] MEDS: IMODIUM PO SCH ×3 (09:04→21:32)
[2018-09-29] MEDS: NEURONTIN PO SCH ×3 (09:04→21:30)
[2018-09-29] MEDS: PULMICORT IH SCH ×2 (09:42→20:46)
[2018-09-29] MEDS: DUONEB *Not for PRN Use IH SCH ×3 (09:42→20:46)
[2018-09-29] MEDS: CATAPRES PO SCH ×2 (10:47→21:13)
[2018-09-29] MEDS: CYMBALTA PO SCH (10:50)
[2018-09-29] MEDS: DEMADEX PO SCH (10:50)
[2018-09-29] MEDS: KEPPRA PO SCH ×2 (10:51→21:12)
[2018-09-29] MEDS: K-DUR PO SCH (10:51)
[2018-09-29] MEDS: MACROBID PO SCH ×2 (10:51→21:30)
--- NOTE | 2018-09-29 11:24 | Progress Note ---
Subjective Date of service: 09/29/18 Principal diagnosis: Opioid use disorder, MDD severe Subjective Comment: Patient reports feeling down, very tired this morning. She is tolerating detox treatment. Unsafe to discharge patient - yet to complete detox treatment Objective - Criteria for Continued Treatment Criteria for Continued Treatment: Improving Level of Functioning, Stablizing Level of Functioning, Improving Emotional/Socia, Decreasing Frequency of Hospitalization - Mental Status Mental Status: Alert - Objective Observation Participation Level: Moderate Assessment and Plan - Patient Problems (1) Opioid use disorder, severe, dependence Current Visit: Yes Status: Acute Plan to address problem: Patient will be admitted for inpatient psychiatric evaluation, medication adjustment and close monitoring The patient's behavior, mood, sleep and appetite will be closely monitored. Patient will be enrolled in individual and group therapeutic sessions and encouraged to attend. Patient will be provided with a safe and structured environment. Patient's physical health needs will be addressed by the Hospitalist. Social Assessment will be completed and the Activity Manager will work with patient and family to ensure a suitable and safe disposition Medication adjustment will be made as clinically indicated The patient agreed on the treatment plan, understood the risk, benefit, alternative treatment, potential consequence of no treatment, and gave informed consent. Clonidine decreased to 0.1mg q12h Gabapentin decreased to 100mg tid (2) MDD (major depressive disorder), recurrent, severe, with psychosis Current Visit: Yes Status: Acute Medications & Allergies - Medications Allergies/Adverse Reactions: Allergies No Known Allergies Allergy (Verified 05/22/18 09:54) Home Medications: Home Medications Medication Instructions Recorded Confirmed Last Taken Type Potassium Chloride [K-Dur] 20 meq PO DAILY #30 tablet 06/05/18 09/23/18 09/21/18 Rx Torsemide [Demadex] 40 mg PO QDAY 09/22/18 09/23/18 09/21/18 History levETIRAcetam [Keppra TAB] 500 mg PO BID 09/22/18 09/23/18 09/21/18 History Nitrofurantoin [place]/M-Cryst 100 mg PO Q12HR #13 capsule 09/23/18 09/23/18 09/23/18 10:00 Rx [Macrobid CAP] Active Medications: Generic Name Dose Route Start Last Admin Trade Name Freq PRN Reason Stop Dose Admin Acetaminophen 1,000 mg 09/24/18 21:34 Tylenol PO Q6H PRN Pain, Mild (1-3) Albuterol 2.5 mg 09/24/18 20:20 Proventil IH Q4HRT PRN Shortness Of Breath Albuterol/Ipratropium 1 ampul 09/25/18 08:00 09/29/18 09:42 Duoneb *Not For Prn Use* IH 1 ampul TIDRT ANGELES Administration Budesonide 0.5 mg 09/25/18 08:00 09/29/18 09:42 Pulmicort IH 0.5 mg Q12HRT ANGELES Administration Clonidine HCl 0.1 mg 09/27/18 08:00 09/29/18 10:47 Catapres PO 0.1 mg TID ANGELES Administration Duloxetine HCl 60 mg 09/25/18 10:00 09/29/18 10:50 Cymbalta PO 60 mg QDAY ANGELES Administration Gabapentin 300 mg 09/25/18 14:00 09/29/18 09:04 Neurontin PO 300 mg TID ANGELES Administration Hydralazine HCl 10 mg 09/24/18 20:19 Apresoline IV Q4HR PRN SBP>160,DBP>100 Hydroxyzine Pamoate 50 mg 09/26/18 22:55 09/28/18 21:05 Vistaril PO 50 mg QID PRN Administration anxiety Ibuprofen 800 mg 09/24/18 21:34 09/28/18 20:04 Ibuprofen PO 800 mg Q8H PRN Administration Pain, Moderate (4-6) Levetiracetam 500 mg 09/23/18 22:00 09/29/18 10:51 Keppra PO 500 mg BID ANGELES Administration Loperamide HCl 2 mg 09/24/18 21:32 Imodium PO Q2H PRN Diarrhea Loperamide HCl 2 mg 09/25/18 08:00 09/29/18 09:04 Imodium PO 2 mg TID ANGELES Administration Mirtazapine 15 mg 09/24/18 22:00 09/28/18 21:05 Remeron PO 15 mg QHS ANGELES Administration Nitrofurantoin Macrocrystals 100 mg 09/23/18 22:00 09/29/18 10:51 Macrobid PO 09/29/18 22:01 100 mg Q12HR ANGELES Administration Potassium Chloride 20 meq 09/24/18 10:00 09/29/18 10:51 K-Dur PO 20 meq QDAY ANGELES Administration Torsemide 40 mg 09/24/18 10:00 09/29/18 10:50 Demadex PO 40 mg QDAY ANGELES Administration Ziprasidone 10 mg 09/25/18 10:30 Geodon IM Q8H PRN Agitation
[2018-09-29] MEDS ORDERED: NEURONTIN PO SCH (11:32)
[2018-09-29] MEDS: IBUPROFEN PO PRN (18:05)
[2018-09-29] MEDS: REMERON PO SCH (21:30)
[2018-09-30] MEDS: PULMICORT IH SCH ×2 (07:57→20:40)
[2018-09-30] MEDS: DUONEB *Not for PRN Use IH SCH ×3 (07:57→20:40)
[2018-09-30] MEDS: NEURONTIN PO SCH ×3 (08:00→20:27)
[2018-09-30] MEDS: IMODIUM PO SCH ×3 (10:05→20:27)
[2018-09-30] MEDS: IBUPROFEN PO PRN ×2 (10:17→15:36)
[2018-09-30] MEDS: KEPPRA PO SCH ×2 (10:17→21:14)
[2018-09-30] MEDS: DEMADEX PO SCH (10:17)
[2018-09-30] MEDS: K-DUR PO SCH (10:17)
[2018-09-30] MEDS: VISTARIL PO PRN ×3 (10:18→21:14)
[2018-09-30] MEDS: CYMBALTA PO SCH (10:18)
[2018-09-30] MEDS: CATAPRES PO SCH ×2 (10:25→21:14)
--- NOTE | 2018-09-30 10:59 | Progress Note ---
Subjective Date of service: 09/30/18 Principal diagnosis: Opioid use disorder, MDD severe Subjective Comment: Patient complains of pain all over her body, feeling very weak this morning. She is tolerating detox treatment. Unsafe to discharge patient - yet to complete detox treatment Objective - Criteria for Continued Treatment Criteria for Continued Treatment: Improving Level of Functioning, Stablizing Level of Functioning, Improving Emotional/Socia, Decreasing Frequency of Hospitalization - Mental Status Mental Status: Alert - Objective Observation Participation Level: Moderate Assessment and Plan - Patient Problems (1) Opioid use disorder, severe, dependence Current Visit: Yes Status: Acute Plan to address problem: Patient will be admitted for inpatient psychiatric evaluation, medication adjustment and close monitoring The patient's behavior, mood, sleep and appetite will be closely monitored. Patient will be enrolled in individual and group therapeutic sessions and encouraged to attend. Patient will be provided with a safe and structured environment. Patient's physical health needs will be addressed by the Hospitalist. Social Assessment will be completed and the Lug Breaker And Wire Puller will work with patient and family to ensure a suitable and safe disposition Medication adjustment will be made as clinically indicated The patient agreed on the treatment plan, understood the risk, benefit, alter [place] treatment, potential consequence of no treatment, and gave informed consent. (2) MDD (major depressive disorder), recurrent, severe, with psychosis Current Visit: Yes Status: Acute Plan to address problem: Patient will be admitted for inpatient psychiatric evaluation, medication adjustment and close monitoring The patient's behavior, mood, sleep and appetite will be closely monitored. Patient will be enrolled in individual and group therapeutic sessions and encouraged to attend. Patient will be provided with a safe and structured environment. Patient's physical health needs will be addressed by the Hospitalist. Social Assessment will be completed and the Lug Breaker And Wire Puller will work with patient and family to ensure a suitable and safe disposition Medication adjustment will be made as clinically indicated The patient agreed on the treatment plan, understood the risk, benefit, altern ative treatment, potential consequence of no treatment, and gave informed consent.
[2018-09-30] MEDS: REMERON PO SCH (21:14)
[2018-10-01] MEDS: PULMICORT IH SCH ×2 (07:58→20:39)
[2018-10-01] MEDS: DUONEB *Not for PRN Use IH SCH ×3 (07:58→20:36)
[2018-10-01] MEDS: NEURONTIN PO SCH ×3 (08:51→20:26)
[2018-10-01] MEDS: IMODIUM PO SCH ×3 (08:51→21:53)
[2018-10-01] MEDS: CATAPRES PO SCH ×2 (09:21→21:50)
[2018-10-01] MEDS: DEMADEX PO SCH (09:22)
[2018-10-01] MEDS: CYMBALTA PO SCH (09:22)
[2018-10-01] MEDS: K-DUR PO SCH (09:22)
[2018-10-01] MEDS: KEPPRA PO SCH ×2 (09:22→21:51)
--- NOTE | 2018-10-01 11:16 | Progress Note ---
Subjective Date of service: 10/01/18 Principal diagnosis: Opioid use disorder, MDD severe Subjective Comment: Patient complains of withdrawing symptoms. She is craving for pain meds. She complains of cold chills, shivering, pain all over her body, feeling very weak this morning. She is tolerating detox treatment. Unsafe to discharge patient - yet to complete detox treatment and very high risk of relapse. Objective - Criteria for Continued Treatment Criteria for Continued Treatment: Improving Level of Functioning, Stablizing Level of Functioning, Improving Emotional/Socia, Decreasing Frequency of Hospitalization - Mental Status Mental Status: Alert - Objective Observation Participation Level: Moderate Assessment and Plan - Patient Problems (1) Opioid use disorder, severe, dependence Current Visit: Yes Status: Acute Plan to address problem: Patient will be admitted for inpatient psychiatric evaluation, medication adjustment and close monitoring The patient's behavior, mood, sleep and appetite will be closely monitored. Patient will be enrolled in individual and group therapeutic sessions and encouraged to attend. Patient will be provided with a safe and structured environment. Patient's physical health needs will be addressed by the Hospitalist. Social Assessment will be completed and the Adoption Agent will work with patient and family to ensure a suitable and safe disposition Medication adjustment will be made as clinically indicated The patient agreed on the treatment plan, understood the risk, benefit, alternative treatment, potential consequence of no treatment, and gave informed consent. (2) MDD (major depressive disorder), recurrent, severe, with psychosis Current Visit: Yes Status: Acute Plan to address problem: Patient will be admitted for inpatient psychiatric evaluation, medication adjustment and close monitoring The patient's behavior, mood, sleep and appetite will be closely monitored. Patient will be enrolled in individual and group therapeutic sessions and encouraged to attend. Patient will be provided with a safe and structured environment. Patient's physical health needs will be addressed by the Hospitalist. Social Assessment will be completed and the Adoption Agent will work with patient and family to ensure a suitable and safe disposition Medication adjustment will be made as clinically indicated The patient agreed on the treatment plan, understood the risk, benefit, alternative treatment, potential consequence of no treatment, and gave informed consent. Medications and Allergies Allergies Allergy/AdvReac Type Severity Reaction Status Date / Time No Known Allergies Allergy Verified 05/22/18 09:54 Home Medications Medication Instructions Recorded Confirmed Last Taken Type Potassium Chloride [K-Dur] 20 meq PO DAILY #30 tablet 04/02/1109/23/18 09/21/18 Rx Torsemide [Demadex] 40 mg PO QDAY 09/22/18 09/23/18 09/21/18 History levETIRAcetam [Keppra TAB] 500 mg PO BID 09/22/18 09/23/18 09/21/18 History Nitrofurantoin Worth/M-Cryst 100 mg PO Q12HR #13 capsule 09/23/18 09/23/18 09/23/18 10:00 Rx [Macrobid CAP] Active Meds: Active Medications Acetaminophen (Tylenol) 1,000 mg PO Q6H PRN PRN Reason: Pain, Mild (1-3) Albuterol (Proventil) 2.5 mg IH Q4HRT PRN PRN Reason: Shortness Of Breath Albuterol/Ipratropium (Duoneb *Not For Prn Use*) 1 ampul IH TIDRT [facility] Last Admin: 10/01/18 07:58 Dose: 1 ampul Documented by: Budesonide (Pulmicort) 0.5 mg IH Q12HRT [facility] Last Admin: 10/01/18 07:58 Dose: 0.5 mg Documented by: Clonidine HCl (Catapres) 0.1 mg PO Q12HR [facility] Last Admin: 10/01/18 09:21 Dose: 0.1 mg Documented by: Duloxetine HCl (Cymbalta) 60 mg PO QDAY [facility] Last Admin: 10/01/18 09:22 Dose: 60 mg Documented by: Gabapentin (Neurontin) 100 mg PO TID [facility] Last Admin: 10/01/18 08:51 Dose: 100 mg Documented by: Hydralazine HCl (Apresoline) 10 mg IV Q4HR PRN PRN Reason: SBP>160,DBP>100 Hydroxyzine Pamoate (Vistaril) 50 mg PO QID PRN PRN Reason: anxiety Last Admin: 09/30/18 21:14 Dose: 50 mg Documented by: Ibuprofen (Ibuprofen) 800 mg PO Q8H PRN PRN Reason: Pain, Moderate (4-6) Last Admin: 09/30/18 15:36 Dose: 800 mg Documented by: Levetiracetam (Keppra) 500 mg PO BID [facility] Last Admin: 10/01/18 09:22 Dose: 500 mg Documented by: Loperamide HCl (Imodium) 2 mg PO Q2H PRN PRN Reason: Diarrhea Loperamide HCl (Imodium) 2 mg PO TID [facility] Last Admin: 10/01/18 08:51 Dose: 2 mg Documented by: Mirtazapine (Remeron) 15 mg PO QHS [facility] Last Admin: 09/30/18 21:14 Dose: 15 mg Documented by: Potassium Chloride (K-Dur) 20 meq PO QDAY [facility] Last Admin: 10/01/18 09:22 Dose: 20 meq Documented by: Torsemide (Demadex) 40 mg PO QDAY [facility] Last Admin: 10/01/18 09:22 Dose: 40 mg Documented by: Ziprasidone (Geodon) 10 mg IM Q8H PRN PRN Reason: Agitation
[2018-10-01] MEDS: IMODIUM PO PRN (20:26)
[2018-10-01] MEDS: IBUPROFEN PO PRN (21:51)
[2018-10-01] MEDS: REMERON PO SCH (21:51)
[2018-10-02] MEDS: IMODIUM PO SCH ×3 (08:02→20:44)
[2018-10-02] MEDS: PULMICORT IH SCH ×2 (08:37→20:52)
[2018-10-02] MEDS: DUONEB *Not for PRN Use IH SCH ×3 (08:37→20:52)
--- NOTE | 2018-10-02 09:01 | Progress Note ---
Subjective Date of service: 10/02/18 Principal diagnosis: Opioid use disorder, MDD severe Subjective Comment: Patient continues to complains withdrawing symptoms and craving for pain meds. She complains of cold chills, shivering, pain all over her body, feeling very weak this morning. She is tolerating detox treatment. Unsafe to discharge patient - yet to complete detox treatment and very high risk of relapse. Objective - Criteria for Continued Treatment Criteria for Continued Treatment: Improving Level of Functioning, Stablizing Level of Functioning, Improving Emotional/Socia, Decreasing Frequency of Hospitalization - Mental Status Mental Status: Alert - Objective Observation Participation Level: Moderate Assessment and Plan - Patient Problems (1) Opioid use disorder, severe, dependence Current Visit: Yes Status: Acute Plan to address problem: Patient will be admitted for inpatient psychiatric evaluation, medication adjustment and close monitoring The patient's behavior, mood, sleep and appetite will be closely monitored. Patient will be enrolled in individual and group therapeutic sessions and encouraged to attend. Patient will be provided with a safe and structured environment. Patient's physical health needs will be addressed by the Hospitalist. Social Assessment will be completed and the Wellness Ambassador will work with patient and family to ensure a suitable and safe disposition Medication adjustment will be made as clinically indicated. Will add Wellbutrin XL 150mg qam for depression. The patient agreed on the treatment plan, understood the risk, benefit, alternative treatment, potential consequence of no treatment, and gave informed consent. (2) MDD (major depressive disorder), recurrent, severe, with psychosis Current Visit: Yes Status: Acute Plan to address problem: Patient will be admitted for inpatient psychiatric evaluation, medication adjustment and close monitoring The patient's behavior, mood, sleep and appetite will be closely monitored. Patient will be enrolled in individual and group therapeutic sessions and encouraged to attend. Patient will be provided with a safe and structured environment. Patient's physical health needs will be addressed by the Hospitalist. Social Assessment will be completed and the Wellness Ambassador will work with patient and family to ensure a suitable and safe disposition Medication adjustment will be made as clinically indicated The patient agreed on the treatment plan, understood the risk, benefit, alternative treatment, potential consequence of no treatment, and gave informed consent.
[2018-10-02] MEDS: K-DUR PO SCH (09:29)
[2018-10-02] MEDS: KEPPRA PO SCH ×2 (09:29→22:10)
[2018-10-02] MEDS: DEMADEX PO SCH (09:30)
[2018-10-02] MEDS: NEURONTIN PO SCH ×3 (09:30→20:44)
[2018-10-02] MEDS: CATAPRES PO SCH ×2 (09:35→22:10)
[2018-10-02] MEDS: CYMBALTA PO SCH (09:41)
[2018-10-02] MEDS: IBUPROFEN PO PRN ×2 (09:42→23:02)
[2018-10-02] MEDS ORDERED: WELLBUTRIN XL PO ONE (10:00)
[2018-10-02] MEDS: VISTARIL PO PRN (22:10)
[2018-10-02] MEDS: REMERON PO SCH (22:10)
[2018-10-03] MEDS: TYLENOL PO PRN (05:14)
--- NOTE | 2018-10-03 08:23 | Progress Note ---
Subjective Date of service: 10/03/18 Principal diagnosis: Opioid use disorder, MDD severe Subjective Comment: No significant improvement. She continues to complain of headaches, withdrawing symptoms and craving for pain meds. She complains of cold chills, shivering, pain all over her body, feeling very weak this morning. She is tolerating detox treatment. Unsafe to discharge patient - yet to complete detox treatment and very high risk of relapse. Objective - Criteria for Continued Treatment Criteria for Continued Treatment: Improving Level of Functioning, Stablizing Level of Functioning, Improving Emotional/Socia, Decreasing Frequency of Hospitalization - Mental Status Mental Status: Alert - Objective Observation Participation Level: Moderate Assessment and Plan - Patient Problems (1) Opioid use disorder, severe, dependence Current Visit: Yes Status: Acute Plan to address problem: Patient will be admitted for inpatient psychiatric evaluation, medication adjustment and close monitoring The patient's behavior, mood, sleep and appetite will be closely monitored. Patient will be enrolled in individual and group therapeutic sessions and encouraged to attend. Patient will be provided with a safe and structured environment. Patient's physical health needs will be addressed by the Hospitalist. Social Assessment will be completed and the Him Manager will work with patient and family to ensure a suitable and safe disposition Medication adjustment will be made as clinically indicated. Will add Wellbutrin XL 150mg qam for depression. The patient agreed on the treatment plan, understood the risk, benefit, alternative treatment, potential consequence of no treatment, and gave informed consent. (2) MDD (major depressive disorder), recurrent, severe, with psychosis Current Visit: Yes Status: Acute Plan to address problem: Patient will be admitted for inpatient psychiatric evaluation, medication adjustment and close monitoring The patient's behavior, mood, sleep and appetite will be closely monitored. Patient will be enrolled in individual and group therapeutic sessions and encouraged to attend. Patient will be provided with a safe and structured environment. Patient's physical health needs will be addressed by the Hospitalist. Social Assessment will be completed and the Him Manager will work with patient and family to ensure a suitable and safe disposition Medication adjustment will be made as clinically indicated The patient agreed on the treatment plan, understood the risk, benefit, alternative treatment, potential consequence of no treatment, and gave informed consent.
[2018-10-03] MEDS: PULMICORT IH SCH ×2 (08:26→21:13)
[2018-10-03] MEDS: DUONEB *Not for PRN Use IH SCH ×3 (08:26→21:12)
[2018-10-03] MEDS: IMODIUM PO SCH ×3 (09:05→21:27)
[2018-10-03] MEDS: NEURONTIN PO SCH ×3 (09:07→21:25)
[2018-10-03] MEDS: CYMBALTA PO SCH (09:12)
[2018-10-03] MEDS: DEMADEX PO SCH (09:12)
[2018-10-03] MEDS: K-DUR PO SCH (09:13)
[2018-10-03] MEDS: KEPPRA PO SCH ×2 (09:13→21:25)
[2018-10-03] MEDS: CATAPRES PO SCH ×2 (10:52→21:24)
[2018-10-03] MEDS: WELLBUTRIN XL PO SCH (10:54)
[2018-10-03] MEDS: IBUPROFEN PO PRN ×2 (11:19→21:25)
[2018-10-03] MEDS: REMERON PO SCH (21:25)
[2018-10-04] MEDS: NEURONTIN PO SCH ×3 (09:11→19:55)
[2018-10-04] MEDS: IMODIUM PO SCH ×3 (09:11→19:55)
[2018-10-04] MEDS: IBUPROFEN PO PRN ×2 (09:12→21:25)
[2018-10-04] MEDS: DEMADEX PO SCH (09:46)
[2018-10-04] MEDS: KEPPRA PO SCH ×2 (09:46→21:24)
[2018-10-04] MEDS: WELLBUTRIN XL PO SCH (09:46)
[2018-10-04] MEDS: CYMBALTA PO SCH (09:46)
[2018-10-04] MEDS: K-DUR PO SCH (09:47)
[2018-10-04] MEDS: CATAPRES PO SCH ×2 (09:47→21:25)
[2018-10-04] MEDS: DUONEB *Not for PRN Use IH SCH ×3 (16:19→22:00)
[2018-10-04] MEDS: PULMICORT IH SCH ×2 (16:19→22:00)
--- NOTE | 2018-10-04 19:55 | Progress Note ---
Subjective Date of service: 10/04/18 Principal diagnosis: Opioid use disorder, MDD severe Subjective Comment: No significant improvement. She continues to complain of headaches, withdrawing symptoms and craving for pain meds. She complains of cold chills, shivering, pain all over her body, feeling very weak this morning. She is tolerating detox treatment. Unsafe to discharge patient - yet to complete detox treatment and very high risk of relapse. Objective - Criteria for Continued Treatment Criteria for Continued Treatment: Improving Level of Functioning, Stablizing Level of Functioning, Improving Emotional/Socia, Decreasing Frequency of Hospitalization - Mental Status Mental Status: Alert - Objective Observation Participation Level: Moderate Assessment and Plan - Patient Problems (1) Opioid use disorder, severe, dependence Current Visit: Yes Status: Acute Plan to address problem: Patient will be admitted for inpatient psychiatric evaluation, medication adjustment and close monitoring The patient's behavior, mood, sleep and appetite will be closely monitored. Patient will be enrolled in individual and group therapeutic sessions and encouraged to attend. Patient will be provided with a safe and structured environment. Patient's physical health needs will be addressed by the Hospitalist. Social Assessment will be completed and the Avionics Repair Technician will work with patient and family to ensure a suitable and safe disposition Medication adjustment will be made as clinically indicated. Will add Wellbutrin XL 150mg qam for depression. The patient agreed on the treatment plan, understood the risk, benefit, alternative treatment, potential consequence of no treatment, and gave informed consent. (2) MDD (major depressive disorder), recurrent, severe, with psychosis Current Visit: Yes Status: Acute Plan to address problem: As above Medications & Allergies - Medications Allergies/Adverse Reactions: Allergies No Known Allergies Allergy (Verified 05/22/18 09:54) Home Medications: Home Medications Medication Instructions Recorded Confirmed Last Taken Type Potassium Chloride [K-Dur] 20 meq PO DAILY #30 tablet 06/05/18 09/23/18 09/21/18 Rx Torsemide [Demadex] 40 mg PO QDAY 09/22/18 09/23/18 09/21/18 History levETIRAcetam [Keppra TAB] 500 mg PO BID 09/22/18 09/23/18 09/21/18 History Nitrofurantoin [place]/M-Cryst 100 mg PO Q12HR #13 capsule 09/23/18 09/23/18 09/23/18 10:00 Rx [Macrobid CAP] Active Medications: Generic Name Dose Route Start Last Admin Trade Name Freq PRN Reason Stop Dose Admin Acetaminophen 1,000 mg 09/24/18 21:34 10/03/18 05:14 Tylenol PO 1,000 mg Q6H PRN Administration Pain, Mild (1-3) Albuterol 2.5 mg 09/24/18 20:20 Proventil IH Q4HRT PRN Shortness Of Breath Albuterol/Ipratropium 1 ampul 09/25/18 08:00 10/04/18 16:22 Duoneb *Not For Prn Use* IH Not Given TIDRT ANGELES Budesonide 0.5 mg 09/25/18 08:00 10/04/18 16:19 Pulmicort IH 0.5 mg Q12HRT ANGELES Administration Bupropion HCl 150 mg 10/03/18 10:00 10/04/18 09:46 Wellbutrin Xl PO 150 mg QDAY ANGELES Administration Clonidine HCl 0.1 mg 09/29/18 22:00 10/04/18 09:47 Catapres PO 0.1 mg Q12HR ANGELES Administration Duloxetine HCl 90 mg 10/02/18 10:00 10/04/18 09:46 Cymbalta PO 90 mg QDAY ANGELES Administration Gabapentin 100 mg 09/29/18 12:00 10/04/18 13:33 Neurontin PO 100 mg TID ANGELES Administration Hydralazine HCl 10 mg 09/24/18 20:19 Apresoline IV Q4HR PRN SBP>160,DBP>100 Hydroxyzine Pamoate 50 mg 09/26/18 22:55 10/02/18 22:10 Vistaril PO 50 mg QID PRN Administration anxiety Ibuprofen 800 mg 09/24/18 21:34 10/04/18 09:12 Ibuprofen PO 800 mg Q8H PRN Administration Pain, Moderate (4-6) Levetiracetam 500 mg 09/23/18 22:00 10/04/18 09:46 Keppra PO 500 mg BID ANGELES Administration Loperamide HCl 2 mg 09/24/18 21:32 10/01/18 20:26 Imodium PO 2 mg Q2H PRN Administration Diarrhea Loperamide HCl 2 mg 09/25/18 08:00 10/04/18 13:33 Imodium PO Not Given TID ANGELES Mirtazapine 15 mg 09/24/18 22:00 10/03/18 21:25 Remeron PO 15 mg QHS ANGELES Administration Potassium Chloride 20 meq 09/24/18 10:00 10/04/18 09:47 K-Dur PO 20 meq QDAY ANGELES Administration Torsemide 40 mg 09/24/18 10:00 10/04/18 09:46 Demadex PO 40 mg QDAY ANGELES Administration Ziprasidone 10 mg 09/25/18 10:30 Geodon IM Q8H PRN Agitation
[2018-10-04] MEDS: REMERON PO SCH (21:26)
[2018-10-05] MEDS: WELLBUTRIN XL PO SCH (09:25)
[2018-10-05] MEDS: KEPPRA PO SCH ×2 (09:26→21:12)
[2018-10-05] MEDS: CYMBALTA PO SCH (09:26)
[2018-10-05] MEDS: K-DUR PO SCH (09:26)
[2018-10-05] MEDS: CATAPRES PO SCH ×2 (09:27→21:11)
[2018-10-05] MEDS: NEURONTIN PO SCH ×3 (09:27→19:22)
[2018-10-05] MEDS: DEMADEX PO SCH (09:27)
--- NOTE | 2018-10-05 09:28 | Progress Note ---
Subjective Date of service: 10/05/18 Principal diagnosis: Opioid use disorder, MDD severe Subjective Comment: Patient complains of pain "from my hair to toe". She reports feeling extremely tired. She is tolerating detox treatment. Unsafe to discharge patient due to very high risk of relapse. Objective - Criteria for Continued Treatment Criteria for Continued Treatment: Improving Level of Functioning, Stablizing Level of Functioning, Improving Emotional/Socia, Decreasing Frequency of Hospitalization - Mental Status Mental Status: Alert - Objective Observation Participation Level: Moderate Assessment and Plan - Patient Problems (1) Opioid use disorder, severe, dependence Current Visit: Yes Status: Acute Plan to address problem: Patient will be admitted for inpatient psychiatric evaluation, medication adjustment and close monitoring The patient's behavior, mood, sleep and appetite will be closely monitored. Patient will be enrolled in individual and group therapeutic sessions and encouraged to attend. Patient will be provided with a safe and structured environment. Patient's physical health needs will be addressed by the Hospitalist. Social Assessment will be completed and the Partner Marketing Intern will work with patient and family to ensure a suitable and safe disposition Medication adjustment will be made as clinically indicated. Will increase Wellbutrin XL to 300mg qam for depression. (Patient denies history of seizures/Head injuries) Will decrease and discontinue Clonidine. The patient agreed on the treatment plan, understood the risk, benefit, alternative treatment, potential consequence of no treatment, and gave informed consent. (2) MDD (major depressive disorder), recurrent, severe, with psychosis Current Visit: Yes Status: Acute Plan to address problem: As above Medications & Allergies - Medications Allergies/Adverse Reactions: Allergies No Known Allergies Allergy (Verified 05/22/18 09:54) Home Medications: Home Medications Medication Instructions Recorded Confirmed Last Taken Type Potassium Chloride [K-Dur] 20 meq PO DAILY #30 tablet 06/05/18 09/23/18 09/21/18 Rx Torsemide [Demadex] 40 mg PO QDAY 09/22/18 09/23/18 09/21/18 History levETIRAcetam [Keppra TAB] 500 mg PO BID 09/22/18 09/23/18 09/21/18 History Nitrofurantoin [place]/M-Cryst 100 mg PO Q12HR #13 capsule 09/23/18 09/23/18 09/23/18 10:00 Rx [Macrobid CAP] Active Medications: Generic Name Dose Route Start Last Admin Trade Name Freq PRN Reason Stop Dose Admin Acetaminophen 1,000 mg 09/24/18 21:34 10/03/18 05:14 Tylenol PO 1,000 mg Q6H PRN Administration Pain, Mild (1-3) Albuterol 2.5 mg 09/24/18 20:20 Proventil IH Q4HRT PRN Shortness Of Breath Albuterol/Ipratropium 1 ampul 09/25/18 08:00 10/04/18 22:00 Duoneb *Not For Prn Use* IH 1 ampul TIDRT ANGELES Administration Budesonide 0.5 mg 09/25/18 08:00 10/04/18 22:00 Pulmicort IH 0.5 mg Q12HRT ANGELES Administration Bupropion HCl 150 mg 10/03/18 10:00 10/04/18 09:46 Wellbutrin Xl PO 150 mg QDAY ANGELES Administration Clonidine HCl 0.1 mg 09/29/18 22:00 10/04/18 21:25 Catapres PO 0.1 mg Q12HR ANGELES Administration Duloxetine HCl 90 mg 10/02/18 10:00 10/04/18 09:46 Cymbalta PO 90 mg QDAY ANGELES Administration Gabapentin 100 mg 09/29/18 12:00 10/04/18 19:55 Neurontin PO 100 mg TID ANGELES Administration Hydralazine HCl 10 mg 09/24/18 20:19 Apresoline IV Q4HR PRN SBP>160,DBP>100 Hydroxyzine Pamoate 50 mg 09/26/18 22:55 10/02/18 22:10 Vistaril PO 50 mg QID PRN Administration anxiety Ibuprofen 800 mg 09/24/18 21:34 10/04/18 21:25 Ibuprofen PO 800 mg Q8H PRN Administration Pain, Moderate (4-6) Levetiracetam 500 mg 09/23/18 22:00 10/04/18 21:24 Keppra PO 500 mg BID ANGELES Administration Loperamide HCl 2 mg 09/24/18 21:32 10/01/18 20:26 Imodium PO 2 mg Q2H PRN Administration Diarrhea Loperamide HCl 2 mg 09/25/18 08:00 10/04/18 19:55 Imodium PO Not Given TID ANGELES Mirtazapine 15 mg 09/24/18 22:00 10/04/18 21:26 Remeron PO 15 mg QHS ANGELES Administration Potassium Chloride 20 meq 09/24/18 10:00 10/04/18 09:47 K-Dur PO 20 meq QDAY ANGELES Administration Torsemide 40 mg 09/24/18 10:00 10/04/18 09:46 Demadex PO 40 mg QDAY ANGELES Administration Ziprasidone 10 mg 09/25/18 10:30 Geodon IM Q8H PRN Agitation
[2018-10-05] MEDS: IBUPROFEN PO PRN ×2 (09:34→19:22)
[2018-10-05] MEDS: PULMICORT IH SCH ×2 (10:47→21:23)
[2018-10-05] MEDS: DUONEB *Not for PRN Use IH SCH ×3 (10:47→21:22)
[2018-10-05] MEDS: IMODIUM PO SCH (13:29)
[2018-10-05] MEDS: VISTARIL PO PRN (21:12)
[2018-10-05] MEDS: REMERON PO SCH (21:12)
--- NOTE | 2018-10-06 08:30 | Progress Note ---
Subjective Date of service: 10/06/18 Principal diagnosis: Opioid use disorder, MDD severe Subjective Comment: Patient continues to complain of extreme fatigue and generalized pain. She reports craving to take pain medications. She denies SI/HI/AVH nut does not feel safe being discharged home as she will very likely relapse withing a few days. Objective - Criteria for Continued Treatment Criteria for Continued Treatment: Improving Level of Functioning, Reducing Isolative Behaviors, Stablizing Level of Functioning, Improving Emotional/Socia, Decreasing Frequency of Hospitalization - Mental Status Mental Status: Alert - Objective Observation Participation Level: Moderate Assessment and Plan - Patient Problems (1) Opioid use disorder, severe, dependence Current Visit: Yes Status: Acute Plan to address problem: Patient will be admitted for inpatient psychiatric evaluation, medication adjustment and close monitoring The patient's behavior, mood, sleep and appetite will be closely monitored. Patient will be enrolled in individual and group therapeutic sessions and encouraged to attend. Patient will be provided with a safe and structured environment. Patient's physical health needs will be addressed by the Hospitalist. Social Assessment will be completed and the Funeral Home Makeup Artist will work with patient and family to ensure a suitable and safe disposition Medication adjustment will be made as clinically indicated. Will continue Wellbutrin XL 300mg qam for depression (10/05) Will decrease and discontinue Clonidine. The patient agreed on the treatment plan, understood the risk, benefit, alternative treatment, potential consequence of no treatment, and gave informed consent. (2) MDD (major depressive disorder), recurrent, severe, with psychosis Current Visit: Yes Status: Acute Plan to address problem: As above Medications & Allergies - Medications Allergies/Adverse Reactions: Allergies No Known Allergies Allergy (Verified 05/22/18 09:54) Home Medications: Home Medications Medication Instructions Recorded Confirmed Last Taken Type Potassium Chloride [K-Dur] 20 meq PO DAILY #30 tablet 06/05/18 09/23/18 09/21/18 Rx Torsemide [Demadex] 40 mg PO QDAY 09/22/18 09/23/18 09/21/18 History levETIRAcetam [Keppra TAB] 500 mg PO BID 09/22/18 09/23/18 09/21/18 History Nitrofurantoin [place]/M-Cryst 100 mg PO Q12HR #13 capsule 09/23/18 09/23/18 09/23/18 10:00 Rx [Macrobid CAP] Active Medications: Generic Name Dose Route Start Last Admin Trade Name Freq PRN Reason Stop Dose Admin Acetaminophen 1,000 mg 09/24/18 21:34 10/03/18 05:14 Tylenol PO 1,000 mg Q6H PRN Administration Pain, Mild (1-3) Albuterol 2.5 mg 09/24/18 20:20 Proventil IH Q4HRT PRN Shortness Of Breath Albuterol/Ipratropium 1 ampul 09/25/18 08:00 10/05/18 21:22 Duoneb *Not For Prn Use* IH 1 ampul TIDRT ANGELES Administration Budesonide 0.5 mg 09/25/18 08:00 10/05/18 21:23 Pulmicort IH 0.5 mg Q12HRT ANGELES Administration Bupropion HCl 150 mg 10/03/18 10:00 10/05/18 09:25 Wellbutrin Xl PO 150 mg QDAY ANGELES Administration Clonidine HCl 0.1 mg 09/29/18 22:00 10/05/18 21:11 Catapres PO 0.1 mg Q12HR ANGELES Administration Duloxetine HCl 90 mg 10/02/18 10:00 10/05/18 09:26 Cymbalta PO 90 mg QDAY ANGELES Administration Gabapentin 100 mg 09/29/18 12:00 10/05/18 19:22 Neurontin PO 100 mg TID ANGELES Administration Hydralazine HCl 10 mg 09/24/18 20:19 Apresoline IV Q4HR PRN SBP>160,DBP>100 Hydroxyzine Pamoate 50 mg 09/26/18 22:55 10/05/18 21:12 Vistaril PO 50 mg QID PRN Administration anxiety Ibuprofen 800 mg 09/24/18 21:34 10/05/18 19:22 Ibuprofen PO 800 mg Q8H PRN Administration Pain, Moderate (4-6) Levetiracetam 500 mg 09/23/18 22:00 10/05/18 21:12 Keppra PO 500 mg BID ANGELES Administration Loperamide HCl 2 mg 09/24/18 21:32 10/01/18 20:26 Imodium PO 2 mg Q2H PRN Administration Diarrhea Mirtazapine 15 mg 09/24/18 22:00 10/05/18 21:12 Remeron PO 15 mg QHS ANGELES Administration Potassium Chloride 20 meq 09/24/18 10:00 10/05/18 09:26 K-Dur PO 20 meq QDAY ANGELES Administration Torsemide 40 mg 09/24/18 10:00 10/05/18 09:27 Demadex PO 40 mg QDAY ANGELES Administration Ziprasidone 10 mg 09/25/18 10:30 Geodon IM Q8H PRN Agitation
[2018-10-06] MEDS: DUONEB *Not for PRN Use IH SCH ×2 (08:46→14:13)
[2018-10-06] MEDS: PULMICORT IH SCH (08:46)
[2018-10-06] MEDS: CYMBALTA PO SCH (10:20)
[2018-10-06] MEDS: WELLBUTRIN XL PO SCH (10:20)
[2018-10-06] MEDS: K-DUR PO SCH (10:20)
[2018-10-06] MEDS: KEPPRA PO SCH ×2 (10:20→21:39)
[2018-10-06] MEDS: NEURONTIN PO SCH ×3 (10:22→21:39)
[2018-10-06] MEDS: DEMADEX PO SCH (10:35)
[2018-10-06] MEDS: IBUPROFEN PO PRN (12:57)
[2018-10-06] MEDS: REMERON PO SCH (21:39)
[2018-10-07] MEDS: PULMICORT IH SCH ×3 (00:19→20:58)
[2018-10-07] MEDS: DUONEB *Not for PRN Use IH SCH ×4 (00:19→12:24)
[2018-10-07] MEDS: VISTARIL PO PRN ×2 (00:56→21:18)
[2018-10-07] MEDS: K-DUR PO SCH (09:31)
[2018-10-07] MEDS: DEMADEX PO SCH (09:31)
[2018-10-07] MEDS: NEURONTIN PO SCH ×3 (09:31→19:58)
[2018-10-07] MEDS: WELLBUTRIN XL PO SCH (09:31)
[2018-10-07] MEDS: CYMBALTA PO SCH (09:31)
[2018-10-07] MEDS: KEPPRA PO SCH ×2 (09:32→21:18)
[2018-10-07] MEDS: IBUPROFEN PO PRN (09:32)
[2018-10-07] MEDS: CATAPRES PO SCH (21:17)
[2018-10-07] MEDS: REMERON PO SCH (21:18)
[2018-10-08] MEDS: TYLENOL PO PRN (03:27)
[2018-10-08] MEDS: DUONEB *Not for PRN Use IH SCH ×3 (08:08→20:37)
[2018-10-08] MEDS: PULMICORT IH SCH ×2 (09:02→20:36)
--- NOTE | 2018-10-08 09:24 | Progress Note ---
Subjective Date of service: 10/07/18 Principal diagnosis: Opioid use disorder, MDD severe Subjective Comment: Patient continues to complain of extreme fatigue and generalized pain. She reports craving to take pain medications. She denies SI/HI/AVH but does not feel safe being discharged home as she will very likely relapse withing a few days. Objective - Criteria for Continued Treatment Criteria for Continued Treatment: Preventing Decomposition, Improving Level of Functioning, Stablizing Level of Functioning, Improving Emotional/Socia, Decreasing Frequency of Hospitalization - Mental Status Mental Status: Alert - Objective Observation Participation Level: Minimal Assessment and Plan - Patient Problems (1) Opioid use disorder, severe, dependence Current Visit: Yes Status: Acute Plan to address problem: Patient will be admitted for inpatient psychiatric evaluation, medication adjustment and close monitoring The patient's behavior, mood, sleep and appetite will be closely monitored. Patient will be enrolled in individual and group therapeutic sessions and encouraged to attend. Patient will be provided with a safe and structured environment. Patient's physical health needs will be addressed by the Hospitalist. Social Assessment will be completed and the Software Configuration Specialist will work with patient and family to ensure a suitable and safe disposition Medication adjustment will be made as clinically indicated. Will continue Wellbutrin XL 300mg qam for depression (10/05) Will decrease and discontinue Clonidine. The patient agreed on the treatment plan, understood the risk, benefit, alternative treatment, potential consequence of no treatment, and gave informed consent. (2) MDD (major depressive disorder), recurrent, severe, with psychosis Current Visit: Yes Status: Acute Plan to address problem: As above
--- NOTE | 2018-10-08 09:29 | Progress Note ---
Subjective Date of service: 10/08/18 Principal diagnosis: Opioid use disorder, MDD severe Subjective Comment: Patient's BP was severely elevated last night. Patient reports that she was on Clonidine 0.2 weekly at home. She is interested in going to Rehab Facility. She reports craving to take pain medications. She denies SI/HI/AVH Objective - Criteria for Continued Treatment Criteria for Continued Treatment: Improving Level of Functioning, Stablizing Level of Functioning - Mental Status Mental Status: Alert - Objective Observation Participation Level: Moderate Assessment and Plan - Patient Problems (1) Opioid use disorder, severe, dependence Current Visit: Yes Status: Acute Plan to address problem: Patient will be admitted for inpatient psychiatric evaluation, medication adjustment and close monitoring The patient's behavior, mood, sleep and appetite will be closely monitored. Patient will be enrolled in individual and group therapeutic sessions and encouraged to attend. Patient will be provided with a safe and structured environment. Patient's physical health needs will be addressed by the Hospitalist. Social Assessment will be completed and the Stock Worker And Deliverer will work with patient and family to ensure a suitable and safe disposition Medication adjustment will be made as clinically indicated. Will continue Wellbutrin XL 300mg qam for depression (10/05) Will discontinue Vistaril, Mirtazapine and Gabapentin as patient continues to complain of feeling very tired in the mornings. Will discontinue oral Clondine and start weekly patch 0.2 The patient agreed on the treatment plan, understood the risk, benefit, alternative treatment, potential consequence of no treatment, and gave informed consent. (2) MDD (major depressive disorder), recurrent, severe, with psychosis Current Visit: Yes Status: Acute Plan to address problem: As above
[2018-10-08] MEDS: IBUPROFEN PO PRN (09:32)
[2018-10-08] MEDS: NEURONTIN PO SCH (09:35)
[2018-10-08] MEDS: K-DUR PO SCH (09:35)
[2018-10-08] MEDS: KEPPRA PO SCH ×2 (09:35→21:28)
[2018-10-08] MEDS: CYMBALTA PO SCH (09:35)
[2018-10-08] MEDS: DEMADEX PO SCH (09:36)
[2018-10-08] MEDS: CATAPRES PO SCH (09:36)
[2018-10-08] MEDS: WELLBUTRIN XL PO SCH (09:36)
[2018-10-08] MEDS ORDERED: CATAPRES-TTS PATCH TD SCH (11:00)
[2018-10-09] MEDS: IBUPROFEN PO PRN ×2 (08:19→21:21)
[2018-10-09] MEDS: CYMBALTA PO SCH (09:07)
[2018-10-09] MEDS: IMODIUM PO PRN (09:07)
[2018-10-09] MEDS: WELLBUTRIN XL PO SCH (09:08)
[2018-10-09] MEDS: KEPPRA PO SCH ×2 (09:08→21:22)
[2018-10-09] MEDS: K-DUR PO SCH (09:08)
[2018-10-09] MEDS: DEMADEX PO SCH (09:08)
--- NOTE | 2018-10-09 09:48 | Progress Note ---
Assessment and Plan Assessment and plan: Patient is a 68 yo woman with a history of anxiety, depression, COPD, chronic respiratory failure on 2L supplemental oxygen, CHF, GERD, HTN, arthritis, chronic back pain. I am asked to re-evaluate patient because of HR 132 and elevated blood pressure. She initially came to [facility] ED on 09/22/18 with compla ints of abd pains. CT abdomen and pelvis was negative for acute abnormality. She was found to have a urinary tract infection and started on microbid. A second look at the UDS on 09/22/18 showed cocaine negative but positive for opiates and Benzos. She had SI per ED documentation on 09/22/18 and was admitted voluntary to the [facility] of[facility] further evaluation and treatment. * 09/22/18 CT scan abd/pelvis without contrast IMPRESSION: 1. Cholelithiasis. 2. Fibroid uterus.3. No acute abdominal or pelvic abnormalities Accelerated hypertension with Urgency: -clondine oral changed to patch, possibly rebound effect Urinary tract infection, -Urine culture positive for enterococcus faecalis, treated Macrobid x 1 in ED -start PCN COPD -Scheduled DuoNeb's and Pulmicort -Albuterol when necessary - chronic and stable Chronic respiratory failure -On continuous 2 L nasal cannula -Monitor saturation -Nebulizer treatments as needed Nausea -oral zofran History of CHF -Continue heart failure meds Cocaine abuse per history -Being managed per primary EKG sinus tachycardia, HR 124 troponin negative CMP and CBC unremarkable UA/UA ctx pending History Interval history: Patient was seen and examined. Follow-up on current diagnosis hypertension and tachycardia. No Overnight events reported to me. Patient denies any chest pain, shortness breath, vomiting or severe headaches. Imaging, nursing note, chart, labs and old chart reviewed. Discussed with patient. She c/o nausea Hospitalist Physical - Physical exam Narrative exam: Gen: WDWN, NAD, Awake, Alert, Orientated HEENT: NCAT, EOMI, PERRL, OP Clear Neck: supple, no adenopathy, no thyromegaly, no JVD CVS/Heart: RRR, normal S1S2, pulses present bilaterally Chest/Lungs: CTA B, Symmetrical chest expansion, good air entry bilaterally GI/Abdomen: soft, NTND, good bowel sounds, no guarding or rebound /Bladder: no suprapubic tenderness, no CVA or paraspinal tenderness Extermity/Skin: no c/c/e, no obvious rash MSK: FROM x 4 Neuro: CN 2-12 grossly intact, no new focal deficits Psych: calm - Constitutional Vitals: Temp Pulse Resp BP Pulse Ox 99.1 F 132 H 22 165/105 100 10/09/18 08:51 10/09/18 08:51 10/09/18 08:51 10/09/18 08:51 10/09/18 08:51 General appearance: Present: no acute distress Results - Labs CBC & Chem 7: 10/09/18 10:18 10/09/18 10:18 Active Medications - Current Medications Current Medications: Generic Name Dose Route Start Last Admin Trade Name Freq PRN Reason Stop Dose Admin Acetaminophen 1,000 mg 09/24/18 21:34 10/08/18 03:27 Tylenol PO 1,000 mg Q6H PRN Administration Pain, Mild (1-3) Albuterol 2.5 mg 09/24/18 20:20 Proventil IH Q4HRT PRN Shortness Of Breath Albuterol/Ipratropium 1 ampul 10/08/18 08:15 10/08/18 20:37 Duoneb *Not For Prn Use* IH 1 ampul BIDRT ANGELES Administration Budesonide 0.5 mg 09/25/18 08:00 10/08/18 20:36 Pulmicort IH 0.5 mg Q12HRT ANGELES Administration Bupropion HCl 150 mg 10/03/18 10:00 10/09/18 09:08 Wellbutrin Xl PO 150 mg QDAY ANGELES Administration Clonidine HCl 0.2 mg 10/08/18 11:00 10/08/18 11:01 Catapres-Tts Patch TD 0.2 mg Th ANGELES Administration Duloxetine HCl 90 mg 10/02/18 10:00 10/09/18 09:07 Cymbalta PO 90 mg QDAY ANGELES Administration Hydralazine HCl 10 mg 09/24/18 20:19 Apresoline IV Q4HR PRN SBP>160,DBP>100 Ibuprofen 800 mg 09/24/18 21:34 10/09/18 08:19 Ibuprofen PO 800 mg Q8H PRN Administration Pain, Moderate (4-6) Levetiracetam 500 mg 09/23/18 22:00 10/09/18 09:08 Keppra PO 500 mg BID ANGELES Administration Loperamide HCl 2 mg 09/24/18 21:32 10/09/18 09:07 Imodium PO 2 mg Q2H PRN Administration Diarrhea Potassium Chloride 20 meq 09/24/18 10:00 10/09/18 09:08 K-Dur PO 20 meq QDAY ANGELES Administration Torsemide 40 mg 09/24/18 10:00 10/09/18 09:08 Demadex PO 40 mg QDAY ANGELES Administration Nutrition/Malnutrition Assess - Dietary Evaluation Nutrition/Malnutrition Findings: Nutrition Notes Start: 09/30/18 18:26 Freq: Status: Active Protocol: Document 09/30/18 18:27 RM (Rec: 09/30/18 18:27 RM [id number]) Nutrition Notes Need for Assessment generated from: LOS Initial or Follow up Brief Note Height 5 ft 5 in Weight 150 kg [place] Body Weight (kg) 56.81 BMI 55.0 Subjective/Other Information Screened for LOS. Recorded PO intake 100% X 3 days. Nutrition Intervention Revisit per MD consult or patient Sign Off request:
[2018-10-09] MEDS: PULMICORT IH SCH ×2 (09:49→23:19)
[2018-10-09] MEDS: DUONEB *Not for PRN Use IH SCH ×2 (09:50→23:20)
[2018-10-09 10:32] LABS: Hematocrit 36.1 % (30.3-42.9); Hemoglobin 12.1 gm/dl (10.1-14.3); Mean Corpuscular HGB Conc 34 % (30-34); Mean Corpuscular Volume 92 fl (79-97); Platelet Count 224 K/mm3 (140-440); Red Blood Count 3.91 M/mm3 (3.65-5.03); Red Cell Distribution Width 16.1 % (13.2-15.2)
[2018-10-09 10:56] LABS: Alanine Aminotransferase 8 units/L (7-56); Albumin 4.1 g/dL (3.9-5); BUN/Creatinine Ratio 21; Blood Urea Nitrogen 23 mg/dL (7-17); Calcium 9.8 mg/dL (8.4-10.2); Hemolysis Index 5
--- NOTE | 2018-10-09 11:10 | XRay Report ---
CHEST 1 VIEW INDICATION: pneumonia. COMPARISON: 09/22/2018 FINDINGS: Support devices: None. Heart: Within normal limits. Lungs/Pleura: No acute air space or interstitial disease. Additional findings: None. IMPRESSION: No acute findings. Signer Name: Sandip Schwab Jr, MD Signed: 10/09/2018 11:05 AM Workstation Name: [id number]
--- NOTE | 2018-10-09 12:00 | Progress Note ---
Subjective Date of service: 10/09/18 Principal diagnosis: Opioid use disorder, MDD severe Subjective Comment: Patient is physically sick today, she complains of flu-like symptoms without the fever; she has nausea, diarrhea; Pulse and BP elevated. Oral Clonidine was switched to Clonidine patch 0.2 weekly. She is interested in going to Rehab Facility. She reports craving to take pain medications. She denies SI/HI/AVH Objective - Criteria for Continued Treatment Criteria for Continued Treatment: Improving Level of Functioning, Stablizing Level of Functioning, Improving Emotional/Socia, Decreasing Frequency of Hospitalization - Objective Observation Participation Level: Moderate Assessment and Plan - Patient Problems (1) Opioid use disorder, severe, dependence Current Visit: Yes Status: Acute Plan to address problem: Patient will be admitted for inpatient psychiatric evaluation, medication adjustment and close monitoring The patient's behavior, mood, sleep and appetite will be closely monitored. Patient will be enrolled in individual and group therapeutic sessions and encouraged to attend. Patient will be provided with a safe and structured environment. Patient's physical health needs will be addressed by the Hospitalist. Social Assessment will be completed and the Medicine Technologist will work with patient and family to ensure a suitable and safe disposition Medication adjustment will be made as clinically indicated. Will continue Wellbutrin XL 300mg qam for depression (10/05) Will continue Clonidine weekly patch 0.2 The patient agreed on the treatment plan, understood the risk, benefit, alternative treatment, potential consequence of no treatment, and gave informed consent. (2) MDD (major depressive disorder), recurrent, severe, with psychosis Current Visit: Yes Status: Acute Plan to address problem: As above Medications & Allergies - Medications Allergies/Adverse Reactions: Allergies No Known Allergies Allergy (Verified 05/22/18 09:54) Home Medications: Home Medications Medication Instructions Recorded Confirmed Last Taken Type Potassium Chloride [K-Dur] 20 meq PO DAILY #30 tablet 06/05/18 09/23/18 09/21/18 Rx Torsemide [Demadex] 40 mg PO QDAY 09/22/18 09/23/18 09/21/18 History levETIRAcetam [Keppra TAB] 500 mg PO BID 09/22/18 09/23/18 09/21/18 History Nitrofurantoin [place]/M-Cryst 100 mg PO Q12HR #13 capsule 09/23/18 09/23/18 09/23/18 10:00 Rx [Macrobid CAP] Active Medications: Generic Name Dose Route Start Last Admin Trade Name Freq PRN Reason Stop Dose Admin Acetaminophen 1,000 mg 09/24/18 21:34 10/08/18 03:27 Tylenol PO 1,000 mg Q6H PRN Administration Pain, Mild (1-3) Albuterol 2.5 mg 09/24/18 20:20 Proventil IH Q4HRT PRN Shortness Of Breath Albuterol/Ipratropium 1 ampul 10/08/18 08:15 10/09/18 09:50 Duoneb *Not For Prn Use* IH Not Given BIDRT ANGELES Amoxicillin 500 mg 10/09/18 14:00 Trimox PO Q8HR ANGELES Budesonide 0.5 mg 09/25/18 08:00 10/09/18 09:49 Pulmicort IH 0.5 mg Q12HRT ANGELES Administration Bupropion HCl 150 mg 10/03/18 10:00 10/09/18 09:08 Wellbutrin Xl PO 150 mg QDAY ANGELES Administration Clonidine HCl 0.2 mg 10/08/18 11:00 10/08/18 11:01 Catapres-Tts Patch TD 0.2 mg Th ANGELES Administration Duloxetine HCl 90 mg 10/02/18 10:00 10/09/18 09:07 Cymbalta PO 90 mg QDAY ANGELES Administration Hydralazine HCl 10 mg 09/24/18 20:19 Apresoline IV Q4HR PRN SBP>160,DBP>100 Ibuprofen 800 mg 09/24/18 21:34 10/09/18 08:19 Ibuprofen PO 800 mg Q8H PRN Administration Pain, Moderate (4-6) Levetiracetam 500 mg 09/23/18 22:00 10/09/18 09:08 Keppra PO 500 mg BID ANGELES Administration Loperamide HCl 2 mg 09/24/18 21:32 10/09/18 09:07 Imodium PO 2 mg Q2H PRN Administration Diarrhea Potassium Chloride 20 meq 09/24/18 10:00 10/09/18 09:08 K-Dur PO 20 meq QDAY ANGELES Administration Torsemide 40 mg 09/24/18 10:00 10/09/18 09:08 Demadex PO 40 mg QDAY ANGELES Administration Mental Status Exam - Vital signs Last Vital Signs Temp 99.1 F 10/09/18 08:51 Pulse 130 H 10/09/18 09:50 Resp 18 10/09/18 09:50 BP 165/105 10/09/18 08:51 Pulse Ox 100 10/09/18 09:52 - Exam Orientation: time, place, person Affect: anxious Mood: congruent with affect Thought Process: Intact Perceptions: none Speech: normal rate and pattern Concentration: focused Motor activity: normal Level of consciousness: alert Memory: Intact Sleep Symptoms: None Interaction: cooperative
[2018-10-09] MEDS: CATAPRES PO SCH ×2 (12:35→21:20)
[2018-10-09] MEDS: TYLENOL PO PRN (13:21)
[2018-10-09] MEDS: TRIMOX PO SCH ×2 (13:21→21:20)
[2018-10-09] MEDS: ZOFRAN ORAL LIQ PO PRN (17:23)
[2018-10-09] MEDS: MELATONIN PO SCH (17:59)
[2018-10-10] MEDS: TRIMOX PO SCH ×3 (05:33→21:24)
[2018-10-10] MEDS: DUONEB *Not for PRN Use IH SCH ×2 (08:32→21:14)
[2018-10-10] MEDS: PULMICORT IH SCH ×2 (08:32→21:14)
[2018-10-10] MEDS: CYMBALTA PO SCH (09:45)
[2018-10-10] MEDS: DEMADEX PO SCH (09:45)
[2018-10-10] MEDS: K-DUR PO SCH (09:45)
[2018-10-10] MEDS: CATAPRES PO SCH ×2 (09:46→21:24)
[2018-10-10] MEDS: KEPPRA PO SCH ×2 (09:49→21:25)
[2018-10-10] MEDS: WELLBUTRIN XL PO SCH (09:49)
[2018-10-10] MEDS: IBUPROFEN PO PRN ×2 (09:52→21:25)
[2018-10-10 14:08] LABS: Bilirubin,Urine NEG (Negative); Blood,Urine NEG (Negative); Color,Urine Yellow (Yellow); Hyaline Casts,Urine 6 /LPF; Mucus,Urine FEW /HPF; Protein,Urine <15 mg/dL mg/dL (Negative); Urobilinogen,Urine < 2.0 mg/dL (<2.0)
[2018-10-10] MEDS: MELATONIN PO SCH (18:05)
[2018-10-11] MEDS: TRIMOX PO SCH ×3 (06:12→21:06)
[2018-10-11] MEDS: PULMICORT IH SCH ×2 (07:45→21:04)
[2018-10-11] MEDS: DUONEB *Not for PRN Use IH SCH ×2 (07:45→21:04)
[2018-10-11] MEDS: K-DUR PO SCH (10:44)
[2018-10-11] MEDS: CYMBALTA PO SCH (10:44)
[2018-10-11] MEDS: WELLBUTRIN XL PO SCH (10:44)
[2018-10-11] MEDS: KEPPRA PO SCH ×2 (10:44→21:06)
[2018-10-11] MEDS: DEMADEX PO SCH (10:45)
[2018-10-11] MEDS: CATAPRES PO SCH ×2 (10:45→21:07)
[2018-10-11] MEDS: IBUPROFEN PO PRN ×2 (10:47→21:06)
[2018-10-11] MEDS: MELATONIN PO SCH (18:36)
--- NOTE | 2018-10-12 05:55 | Progress Note ---
Subjective Date of service: 10/10/18 Principal diagnosis: Opioid use disorder, MDD severe Subjective Comment: Patient reports feeling better this morning. She is interested in going to Rehab Facility. She reports craving to take pain medications. She denies SI/HI/AVH Orientation: time, place, person Affect: anxious Mood: congruent with affect Thought Process: Intact Perceptions: none Speech: normal rate and pattern Concentration: focused Motor activity: normal Level of consciousness: alert Memory: Intact Sleep Symptoms: None Interaction: cooperative Objective - Criteria for Continued Treatment Criteria for Continued Treatment: Improving Level of Functioning, Stablizing Level of Functioning, Improving Emotional/Socia - Objective Observation Participation Level: Full Assessment and Plan - Patient Problems (1) Opioid use disorder, severe, dependence Current Visit: Yes Status: Acute Plan to address problem: Patient will be admitted for inpatient psychiatric evaluation, medication adjustment and close monitoring The patient's behavior, mood, sleep and appetite will be closely monitored. Patient will be enrolled in individual and group therapeutic sessions and encouraged to attend. Patient will be provided with a safe and structured environment. Patient's physical health needs will be addressed by the Hospitalist. Social Assessment will be completed and the Insurance Instructor will work with patient and family to ensure a suitable and safe disposition Medication adjustment will be made as clinically indicated. Will continue Wellbutrin XL 300mg qam for depression (10/05) Will continue Clonidine weekly patch 0.2 The patient agreed on the treatment plan, understood the risk, benefit, alternative treatment, potential consequence of no treatment, and gave informed consent. (2) MDD (major depressive disorder), recurrent, severe, with psychosis Current Visit: Yes Status: Acute Plan to address problem: As above
--- NOTE | 2018-10-12 05:56 | Progress Note ---
Subjective Date of service: 10/11/18 Principal diagnosis: Opioid use disorder, MDD severe Subjective Comment: Patient reports feeling better this morning. She is interested in going to Rehab Facility. She reports craving to take pain medications. She denies SI/HI/AVH Orientation: time, place, person Affect: anxious Mood: congruent with affect Thought Process: Intact Perceptions: none Speech: normal rate and pattern Concentration: focused Motor activity: normal Level of consciousness: alert Memory: Intact Sleep Symptoms: None Interaction: cooperative Objective - Criteria for Continued Treatment Criteria for Continued Treatment: Improving Level of Functioning, Improving Treatment / Medication Compliance, Stablizing Level of Functioning, Improving Emotional/Socia - Objective Observation Participation Level: Full Assessment and Plan - Patient Problems (1) Opioid use disorder, severe, dependence Current Visit: Yes Status: Acute Plan to address problem: Patient will be admitted for inpatient psychiatric evaluation, medication adjustment and close monitoring The patient's behavior, mood, sleep and appetite will be closely monitored. Patient will be enrolled in individual and group therapeutic sessions and encouraged to attend. Patient will be provided with a safe and structured environment. Patient's physical health needs will be addressed by the Hospitalist. Social Assessment will be completed and the Silviculture Forester will work with patient and family to ensure a suitable and safe disposition Medication adjustment will be made as clinically indicated. Will continue Wellbutrin XL 300mg qam for depression (10/05) Will continue Clonidine weekly patch 0.2 The patient agreed on the treatment plan, understood the risk, benefit, alter emmonak treatment, potential consequence of no treatment, and gave informed consent. (2) MDD (major depressive disorder), recurrent, severe, with psychosis Current Visit: Yes Status: Acute Plan to address problem: As above Medications & Allergies - Medications Allergies/Adverse Reactions: Allergies No Known Allergies Allergy (Verified 05/22/18 09:54) Home Medications: Home Medications Medication Instructions Recorded Confirmed Last Taken Type Potassium Chloride [K-Dur] 20 meq PO DAILY #30 tablet 06/05/18 09/23/18 09/21/18 Rx Torsemide [Demadex] 40 mg PO QDAY 09/22/18 09/23/18 09/21/18 History levETIRAcetam [Keppra TAB] 500 mg PO BID 09/22/18 09/23/18 09/21/18 History Nitrofurantoin [place]/M-Cryst 100 mg PO Q12HR #13 capsule 09/23/18 09/23/18 09/23/18 10:00 Rx [Macrobid CAP] Active Medications: Generic Name Dose Route Start Last Admin Trade Name Freq PRN Reason Stop Dose Admin Acetaminophen 1,000 mg 09/24/18 21:34 10/09/18 13:21 Tylenol PO 1,000 mg Q6H PRN Administration Pain, Mild (1-3) Albuterol 2.5 mg 09/24/18 20:20 Proventil IH Q4HRT PRN Shortness Of Breath Albuterol/Ipratropium 1 ampul 10/08/18 08:15 10/11/18 21:04 Duoneb *Not For Prn Use* IH 1 ampul BIDRT ANGELES Administration Amoxicillin 500 mg 10/09/18 14:00 10/11/18 21:06 Trimox PO 500 mg Q8HR ANGELES Administration Budesonide 0.5 mg 09/25/18 08:00 10/11/18 21:04 Pulmicort IH 0.5 mg Q12HRT ANGELES Administration Bupropion HCl 150 mg 10/03/18 10:00 10/11/18 10:44 Wellbutrin Xl PO 150 mg QDAY ANGELES Administration Clonidine HCl 0.2 mg 10/08/18 11:00 10/08/18 11:01 Catapres-Tts Patch TD 0.2 mg Th ANGELES Administration Duloxetine HCl 90 mg 10/02/18 10:00 10/11/18 10:44 Cymbalta PO 90 mg QDAY ANGELES Administration Ibuprofen 800 mg 09/24/18 21:34 10/11/18 21:06 Ibuprofen PO 800 mg Q8H PRN Administration Pain, Moderate (4-6) Levetiracetam 500 mg 09/23/18 22:00 10/11/18 21:06 Keppra PO 500 mg BID ANGELES Administration Loperamide HCl 2 mg 09/24/18 21:32 10/09/18 09:07 Imodium PO 2 mg Q2H PRN Administration Diarrhea Melatonin 10 mg 10/09/18 18:00 10/11/18 18:36 Melatonin PO 10 mg 1800 ANGELES Administration Ondansetron HCl 4 mg 10/09/18 16:31 10/09/18 17:23 Zofran Oral Liq PO 4 mg Q4H PRN Administration Nausea Potassium Chloride 20 meq 09/24/18 10:00 10/11/18 10:44 K-Dur PO 20 meq QDAY ANGELES Administration Torsemide 40 mg 09/24/18 10:00 10/11/18 10:45 Demadex PO 40 mg QDAY ANGELES Administration
[2018-10-12] MEDS: TRIMOX PO SCH ×3 (06:48→21:02)
[2018-10-12] MEDS: PULMICORT IH SCH ×2 (09:20→20:18)
[2018-10-12] MEDS: DUONEB *Not for PRN Use IH SCH ×2 (09:20→20:18)
[2018-10-12] MEDS: DEMADEX PO SCH (10:37)
[2018-10-12] MEDS: CYMBALTA PO SCH (10:37)
[2018-10-12] MEDS: WELLBUTRIN XL PO SCH (10:38)
[2018-10-12] MEDS: K-DUR PO SCH (10:38)
[2018-10-12] MEDS: KEPPRA PO SCH ×2 (10:38→21:02)
[2018-10-12] MEDS: ZOFRAN ORAL LIQ PO PRN (10:39)
--- NOTE | 2018-10-12 11:51 | Progress Note ---
Subjective Date of service: 10/12/18 Principal diagnosis: Opioid use disorder, MDD severe Subjective Comment: Patient reports feeling tired and aching all over. She continues to be tachycardic. She is interested in going to Rehab Facility. She reports craving to take pain medications. She denies SI/HI/AVH. Orientation: time, place, person Affect: anxious Mood: congruent with affect Thought Process: Intact Perceptions: none Speech: normal rate and pattern Concentration: focused Motor activity: normal Level of consciousness: alert Memory: Intact Sleep Symptoms: None Interaction: cooperative Objective - Criteria for Continued Treatment Criteria for Continued Treatment: Improving Level of Functioning, Stablizing Level of Functioning, Improving Emotional/Socia - Objective Observation Participation Level: Full Assessment and Plan - Patient Problems (1) Opioid use disorder, severe, dependence Current Visit: Yes Status: Acute Plan to address problem: Patient will be admitted for inpatient psychiatric evaluation, medication adjustment and close monitoring The patient's behavior, mood, sleep and appetite will be closely monitored. Patient will be enrolled in individual and group therapeutic sessions and encouraged to attend. Patient will be provided with a safe and structured environment. Patient's physical health needs will be addressed by the Hospitalist. Social Assessment will be completed and the Director Of Instructional Technology will work with patient and family to ensure a suitable and safe disposition Medication adjustment will be made as clinically indicated. Will continue Wellbutrin XL 300mg qam for depression (10/05) Will continue Clonidine weekly patch 0.2 The patient agreed on the treatment plan, understood the risk, benefit, alternative treatment, potential consequence of no treatment, and gave informed consent. (2) MDD (major depressive disorder), recurrent, severe, with psychosis Current Visit: Yes Status: Acute Plan to address problem: As above Medications & Allergies - Medications Allergies/Adverse Reactions: Allergies No Known Allergies Allergy (Verified 05/22/18 09:54) Home Medications: Home Medications Medication Instructions Recorded Confirmed Last Taken Type Potassium Chloride [K-Dur] 20 meq PO DAILY #30 tablet 06/05/18 09/23/18 09/21/18 Rx Torsemide [Demadex] 40 mg PO QDAY 09/22/18 09/23/18 09/21/18 History levETIRAcetam [Keppra TAB] 500 mg PO BID 09/22/18 09/23/18 09/21/18 History Nitrofurantoin [place]/M-Cryst 100 mg PO Q12HR #13 capsule 09/23/18 09/23/18 09/23/18 10:00 Rx [Macrobid CAP] Active Medications: Generic Name Dose Route Start Last Admin Trade Name Freq PRN Reason Stop Dose Admin Acetaminophen 1,000 mg 09/24/18 21:34 10/09/18 13:21 Tylenol PO 1,000 mg Q6H PRN Administration Pain, Mild (1-3) Albuterol 2.5 mg 09/24/18 20:20 Proventil IH Q4HRT PRN Shortness Of Breath Albuterol/Ipratropium 1 ampul 10/08/18 08:15 10/12/18 09:20 Duoneb *Not For Prn Use* IH 1 ampul BIDRT ANGELES Administration Amoxicillin 500 mg 10/09/18 14:00 10/12/18 06:48 Trimox PO 500 mg Q8HR ANGELES Administration Budesonide 0.5 mg 09/25/18 08:00 10/12/18 09:20 Pulmicort IH 0.5 mg Q12HRT ANGELES Administration Bupropion HCl 150 mg 10/03/18 10:00 10/12/18 10:38 Wellbutrin Xl PO 150 mg QDAY ANGELES Administration Clonidine HCl 0.2 mg 10/08/18 11:00 10/08/18 11:01 Catapres-Tts Patch TD 0.2 mg Th ANGELES Administration Duloxetine HCl 90 mg 10/02/18 10:00 10/12/18 10:37 Cymbalta PO 90 mg QDAY ANGELES Administration Ibuprofen 800 mg 09/24/18 21:34 10/11/18 21:06 Ibuprofen PO 800 mg Q8H PRN Administration Pain, Moderate (4-6) Levetiracetam 500 mg 09/23/18 22:00 10/12/18 10:38 Keppra PO 500 mg BID ANGELES Administration Loperamide HCl 2 mg 09/24/18 21:32 10/09/18 09:07 Imodium PO 2 mg Q2H PRN Administration Diarrhea Melatonin 10 mg 10/09/18 18:00 10/11/18 18:36 Melatonin PO 10 mg 1800 ANGELES Administration Ondansetron HCl 4 mg 10/09/18 16:31 10/12/18 10:39 Zofran Oral Liq PO 4 mg Q4H PRN Administration Nausea Potassium Chloride 20 meq 09/24/18 10:00 10/12/18 10:38 K-Dur PO 20 meq QDAY ANGELES Administration Torsemide 40 mg 09/24/18 10:00 10/12/18 10:37 Demadex PO 40 mg QDAY ANGELES Administration
[2018-10-12] MEDS: MELATONIN PO SCH (17:56)
[2018-10-12] MEDS: IBUPROFEN PO PRN (18:12)
[2018-10-13] MEDS: TRIMOX PO SCH (05:47)
--- NOTE | 2018-10-13 07:48 | Discharge Summary ---
Providers - Providers Date of Admission: 09/23/18 13:47 Attending physician: IAN SAHU MD 09/23/18 13:47 Consult to Physician [CONS] Routine Comment: Consulting Provider: LITZY MAO Physician Instructions: Reason For Exam: [facility] Primary care physician: [facility], Hospitalization Reason for admission: depressed mood and suicidal thoughts Allergies/Adverse Reactions: Allergies No Known Allergies Allergy (Verified 05/22/18 09:54) Vital Signs: Last Vital Signs Temp 97.4 F L 10/12/18 21:30 Pulse 104 H 10/13/18 07:26 Resp 18 10/12/18 21:30 BP 137/83 10/12/18 21:30 Pulse Ox 97 10/12/18 21:30 Last Lab: Laboratory Last Values WBC 6.6 K/mm3 (4.5-11.0) 10/09/18 10:18 RBC 3.91 M/mm3 (3.65-5.03) 10/09/18 10:18 Hgb 12.1 gm/dl (10.1-14.3) 10/09/18 10:18 Hct 36.1 % (30.3-42.9) 10/09/18 10:18 MCV 92 fl (79-97) 10/09/18 10:18 MCH 31 pg (28-32) 10/09/18 10:18 MCHC 34 % (30-34) 10/09/18 10:18 RDW 16.1 % (13.2-15.2) H 10/09/18 10:18 Plt Count 224 K/mm3 (140-440) 10/09/18 10:18 Sodium 143 mmol/L (137-145) 10/09/18 10:18 Potassium 3.8 mmol/L (3.6-5.0) 10/09/18 10:18 Chloride 100.5 mmol/L (98-107) 10/09/18 10:18 Carbon Dioxide 28 mmol/L (22-30) 10/09/18 10:18 18 mmol/L 10/09/18 10:18 BUN 23 mg/dL (7-17) H 10/09/18 10:18 1.1 mg/dL (0.7-1.2) 10/09/18 10:18 Estimated GFR 59 ml/min 10/09/18 10:18 21 % 10/09/18 10:18 Glucose 104 mg/dL (65-100) H 10/09/18 10:18 Calcium 9.8 mg/dL (8.4-10.2) 10/09/18 10:18 0.40 mg/dL (0.1-1.2) 10/09/18 10:18 AST 12 units/L (5-40) 10/09/18 10:18 ALT 8 units/L (7-56) 10/09/18 10:18 85 units/L (35-129) 10/09/18 10:18 < 0.010 ng/mL (0.00-0.029) 10/09/18 10:18 7.4 g/dL (6.3-8.2) 10/09/18 10:18 4.1 g/dL (3.9-5) 10/09/18 10:18 1.2 % 10/09/18 10:18 Yellow (Yellow) 10/10/18 13:47 Clear (Clear) 10/10/18 13:47 5.0 (5.0-7.0) 10/10/18 13:47 Ur Specific [place] 1.011 (1.003-1.030) 10/10/18 13:47 <15 mg/dl mg/dL (Negative) 10/10/18 13:47 Neg mg/dL (Negative) 10/10/18 13:47 Neg mg/dL (Negative) 10/10/18 13:47 Neg (Negative) 10/10/18 13:47 Neg (Negative) 10/10/18 13:47 Neg (Negative) 10/10/18 13:47 < 2.0 mg/dL (<2.0) 10/10/18 13:47 Ur Leukocyte Esterase Neg (Negative) 10/10/18 13:47 8.0 /HPF (0.0-6.0) H 10/10/18 13:47 1.0 /HPF (0.0-6.0) 10/10/18 13:47 U Epithel Cells (Auto) 1.0 /HPF (0-13.0) 10/10/18 13:47 Hyaline Casts 6 /LPF 10/10/18 13:47 Few /HPF 10/10/18 13:47 - Discharge Diagnoses (1) Opioid use disorder, severe, dependence Status: Acute (2) MDD (major depressive disorder), recurrent, severe, with psychosis Status: Acute Core Measure Documentation - Palliative Care Palliative Care/ Comfort Measures: Not Applicable Exam - Constitutional Vitals: Temp Pulse Resp BP Pulse Ox 97.4 F L 104 H 18 137/83 97 10/12/18 21:30 10/13/18 07:26 10/12/18 21:30 10/12/18 21:30 10/12/18 21:30 Plan Care Plan Goals: Abstain from using drugs Plan of Treatment: Follow up in outpatient. Take medications as prescribed Health Concerns: COPD Assessment: Opioid use disorder Follow up with: HARPREET DUMAS MD [Primary Care Provider] - 7 Days Prescriptions: cloNIDine-TTS PATCH [Catapres-Tts 0.2mg Patch] 0.2 mg TD Th #7 patch DULoxetine [Cymbalta] 90 mg PO QDAY #90 capsule Torsemide [Demadex] 40 mg PO QDAY #60 tablet Potassium Chloride [K-Dur] 20 meq PO DAILY #30 tablet levETIRAcetam [Keppra TAB] 500 mg PO BID #60 tablet Melatonin [Melatonin 5MG TAB] 10 mg PO 1800 #30 tablet ALBUTEROL NEB's [Proventil 0.083% NEBS] 2.5 mg IH Q4HRT PRN #30 nebu PRN Reason: Shortness Of Breath Budesonide [Pulmicort Respules] 0.5 mg IH Q12HRT #14 nebu Amoxicillin [Trimox CAP] 500 mg PO Q8HR #14 capsule buPROPion XL [Wellbutrin XL] 150 mg PO QDAY #30 tablet Ipratropium/Albuterol Sulfate [DUONEB *Not for PRN Use*] 1 ampul IH BIDRT #30 ampul.neb
[2018-10-13] MEDS: PULMICORT IH SCH (09:58)
[2018-10-13] MEDS: DUONEB *Not for PRN Use IH SCH (09:58)
[2018-10-13 10:27] VITALS: BP 149/91
[2018-10-13] MEDS: K-DUR PO SCH (10:29)
[2018-10-13] MEDS: CYMBALTA PO SCH (10:29)
[2018-10-13] MEDS: DEMADEX PO SCH (10:29)
[2018-10-13] MEDS: KEPPRA PO SCH (10:29)
[2018-10-13] MEDS: WELLBUTRIN XL PO SCH (10:29)
[2018-10-13] MEDS: TYLENOL PO PRN (10:36)
[2018-10-13] MEDS: ZOFRAN ORAL LIQ PO PRN (11:54)
== END 2018-10-13 12:24 | disposition home or self-care (01) | DRG 885 ==
LOC: UNDOADMIN 12:49 → 3A 12:49 → 5A 13:47
PROVIDERS: ADMIT Psychiatry & Neurology Psychiatry; ATTEND Psychiatry & Neurology Psychiatry
DX: F33.3 Major depressive disorder, recurrent, severe with psychotic symptoms (principal); F11.288 Opioid dependence with other opioid-induced disorder; J96.10 Chronic respiratory failure, unspecified whether with hypoxia or hypercapnia; N39.0 Urinary tract infection, site not specified; M19.90 Unspecified osteoarthritis, unspecified site; F41.9 Anxiety disorder, unspecified; K21.9 Gastro-esophageal reflux disease without esophagitis; I11.0 Hypertensive heart disease with heart failure; I50.9 Heart failure, unspecified; G89.29 Other chronic pain; F14.10 Cocaine abuse, uncomplicated; J44.9 Chronic obstructive pulmonary disease, unspecified; Z99.81 Dependence on supplemental oxygen; Z71.51 Drug abuse counseling and surveillance of drug abuser
CPT/HCPCS: 36415; 71045; 74176; 76856; 80048; 80053; 80076; 80307; 81001; 83690; 84484; 85025; 85027; 85610; 87040; 87076; 87086; 87186; 93005; 93010; 94640; 94760; 96374; 96375; 96376; G0378; J2270; J2405; J7030; Q0162; Q0177

== ENCOUNTER 2019-06-05 02:04 | Emergency (ER) | payer MEDICARE ==
[2019-06-05 02:25] VITALS: BP 164/71
[2019-06-05] MEDS ORDERED: DULoxetine 30 MG CAP PO ONE (02:38)
--- NOTE | 2019-06-05 02:43 | Emergency Department Report ---
ED General Adult HPI - General Chief complaint: Dyspnea/Respdistress Stated complaint: SOB Time Seen by Provider: 06/05/19 02:29 Source: EMS Mode of arrival: Stretcher Limitations: No Limitations - History of Present Illness Initial comments: 68-year-old female with history of depression, anxiety, COPD, CHF, presents the ED with anxiety. Patient states she has been out of her Cymbalta for the last 3 days. She states tonight, she began to feel anxious, with associated shortness of breath, and heart racing. Patient states when she was able to try to calm herself down by sitting down and taking deep breaths, her symptoms resolved. Patient called 911 for transport to the ED. Patient is chronically on 3 L O2 and has not had to increase her requirement. She states that she has been trying to contact her physician, but was unsuccessful in order to get her Cymbalta refilled. Patient denies any fever, cough,or sick contacts. -: This morning Consistency: now resolved Improves with: medication Worsens with: none Associated Symptoms: shortness of breath Treatments Prior to Arrival: none - Related Data Previous Rx's Medication Instructions Recorded Last Taken Type ALBUTEROL NEB's [Proventil 0.083% 2.5 mg IH Q4HRT PRN #30 nebu 10/13/18 Unknown Rx NEBS] Acetaminophen [Acetaminophen TAB] 1,000 mg PO Q6H PRN tablet 10/13/18 Unknown Rx Amoxicillin [Trimox CAP] 500 mg PO Q8HR #14 capsule 10/13/18 Unknown Rx Budesonide [Pulmicort Respules] 0.5 mg IH Q12HRT #14 nebu 10/13/18 Unknown Rx DULoxetine [Cymbalta] 90 mg PO QDAY #90 capsule 10/13/18 Unknown Rx Ibuprofen [Motrin 800 MG tab] 800 mg PO Q8H PRN tablet 10/13/18 Unknown Rx Ipratropium/Albuterol Sulfate 1 ampul IH BIDRT #30 ampul.neb 10/13/18 Unknown Rx [DUONEB *Not for PRN Use*] Melatonin [Melatonin 5MG TAB] 10 mg PO 1800 #30 tablet 10/13/18 Unknown Rx Potassium Chloride [K-Dur] 20 meq PO DAILY #30 tablet 10/13/18 Unknown Rx Torsemide [Demadex] 40 mg PO QDAY #60 tablet 10/13/18 Unknown Rx buPROPion XL [Wellbutrin XL] 150 mg PO QDAY #30 tablet 10/13/18 Unknown Rx cloNIDine-TTS PATCH [Catapres-Tts 0.2 mg TD Th #7 patch 10/13/18 Unknown Rx 0.2mg Patch] levETIRAcetam [Keppra TAB] 500 mg PO BID #60 tablet 10/13/18 Unknown Rx DULoxetine [Cymbalta] 30 mg PO QDAY #15 capsule 06/05/19 Unknown Rx Allergies Allergy/AdvReac Type Severity Reaction Status Date / Time No Known Allergies Allergy Verified 05/22/18 09:54 ED Review of Systems ROS: Stated complaint: SOB Other details as noted in HPI Comment: All other systems reviewed and negative Constitutional: denies: chills, fever Respiratory: shortness of breath. denies: cough Cardiovascular: palpitations Gastrointestinal: denies: nausea, vomiting Psychiatric: anxiety ED Past Medical Hx - Past Medical History Hx Hypertension: Yes Hx Heart Attack/AMI: No Hx Congestive Heart Failure: Yes Hx Deep Vein Thrombosis: No Hx Pulmonary Embolism: No Hx GERD: Yes Hx Renal Disease: No Hx Arthritis: Yes Hx Seizures: No Hx Asthma: No Hx COPD: Yes Hx Tuberculosis: No Hx Dementia: No Additional medical history: chronic back pain - Surgical History Hx Coronary Stent: No Hx Pacemaker: No Hx Internal Defibrillator: No Hx Cholecystectomy: No Hx Appendectomy: No Additional Surgical History: hernia repair and lower back/ cycst removal - Social History Smoking Status: Former Smoker - Medications Home Medications: Home Medications Medication Instructions Recorded Confirmed Last Taken Type ALBUTEROL NEB's [Proventil 0.083% 2.5 mg IH Q4HRT PRN #30 nebu 10/13/18 Unknown Rx NEBS] Acetaminophen [Acetaminophen TAB] 1,000 mg PO Q6H PRN tablet 10/13/18 Unknown Rx Amoxicillin [Trimox CAP] 500 mg PO Q8HR #14 capsule 10/13/18 Unknown Rx Budesonide [Pulmicort Respules] 0.5 mg IH Q12HRT #14 nebu 10/13/18 Unknown Rx DULoxetine [Cymbalta] 90 mg PO QDAY #90 capsule 10/13/18 Unknown Rx Ibuprofen [Motrin 800 MG tab] 800 mg PO Q8H PRN tablet 10/13/18 Unknown Rx Ipratropium/Albuterol Sulfate 1 ampul IH BIDRT #30 ampul.neb 10/13/18 Unknown Rx [DUONEB *Not for PRN Use*] Melatonin [Melatonin 5MG TAB] 10 mg PO 1800 #30 tablet 10/13/18 Unknown Rx Potassium Chloride [K-Dur] 20 meq PO DAILY #30 tablet 10/13/18 Unknown Rx Torsemide [Demadex] 40 mg PO QDAY #60 tablet 10/13/18 Unknown Rx buPROPion XL [Wellbutrin XL] 150 mg PO QDAY #30 tablet 10/13/18 Unknown Rx cloNIDine-TTS PATCH [Catapres-Tts 0.2 mg TD Th #7 patch 10/13/18 Unknown Rx 0.2mg Patch] levETIRAcetam [Keppra TAB] 500 mg PO BID #60 tablet 10/13/18 Unknown Rx DULoxetine [Cymbalta] 30 mg PO QDAY #15 capsule 06/05/19 Unknown Rx ED Physical Exam - General Limitations: No Limitations General appearance: alert, in no apparent distress - Head Head exam: Present: atraumatic, normocephalic - Eye Eye exam: Present: normal appearance, EOMI - ENT ENT exam: Present: mucous membranes moist - Neck Neck exam: Present: normal inspection - Respiratory Respiratory exam: Present: normal lung sounds bilaterally. Absent: respiratory distress - Cardiovascular Cardiovascular Exam: Present: regular rate, normal rhythm - GI/Abdominal GI/Abdominal exam: Present: soft. Absent: distended, tenderness - Extremities Exam Extremities exam: Present: normal inspection - Neurological Exam Neurological exam: Present: alert, oriented X3 - Psychiatric Psychiatric exam: Present: anxious - Skin Skin exam: Present: warm, dry, intact, normal color ED Course Vital Signs 06/05/19 06/05/19 02:22 03:46 Temperature 99.5 F 99.5 F Pulse Rate 84 84 Respiratory 16 16 Rate Blood Pressure 164/71 164/71 [Left] O2 Sat by Pulse 100 100 Oximetry ED Medical Decision Making - Medical Decision Making 68-year-old female presents to ED for what she describes as an anxiety attack. Patient reports she has been off of her anxiety medication for the last 3 days. Patient was given a dose of her medication here in the ED. Patient feels much better this time. Vitals are stable. She is in no respiratory distress. O2 sats are normal on her baseline 3 L of O2. Patient does not require EKG or chest x-ray at this time. Prescription was given for her Cymbalta. Patient advised to follow-up with her PCP. Return precautions given. - Differential Diagnosis Anxiety, COPD, CHF Critical care attestation.: If time is entered above; I have spent that time in minutes in the direct care of this critically ill patient, excluding procedure time. ED Disposition Clinical Impression: Anxiety Disposition: DC-01 TO HOME OR SELFCARE Is pt being admited?: No Condition: Stable Instructions: Anxiety (ED) Prescriptions: DULoxetine [Cymbalta] 30 mg PO QDAY #15 capsule Referrals: PRIMARY CARE, [Primary Care Provider] - 3-5 Days Time of Disposition: 02:56
== END 2019-06-05 03:46 | disposition home or self-care (01) ==
LOC: ED 02:04
DX: F41.9 Anxiety disorder, unspecified (principal); R06.02 Shortness of breath; R00.2 Palpitations; I11.0 Hypertensive heart disease with heart failure; I50.9 Heart failure, unspecified; K21.9 Gastro-esophageal reflux disease without esophagitis; J44.9 Chronic obstructive pulmonary disease, unspecified; G89.29 Other chronic pain; M54.5 Low back pain
CPT/HCPCS: 82962; 99283

== ENCOUNTER 2019-07-01 18:45 | Inpatient (IN) | payer MEDICARE ==
[2019-07-01] MEDS ORDERED: ASPIRIN 81 MG TAB CHEW PO ONE (19:09)
[2019-07-01] MEDS ORDERED: MORPHINE 4 MG/1 ML INJ IV ONE (19:23)
[2019-07-01] MEDS ORDERED: ONDANSETRON 4 MG/2 ML INJ IV ONE (19:23)
--- NOTE | 2019-07-01 19:27 | Emergency Department Report ---
ED Chest Pain HPI - General Chief Complaint: Chest Pain Stated Complaint: CHEST TIGHTNESS Time Seen by Provider: 07/01/19 19:06 Source: patient, EMS Mode of arrival: Stretcher Limitations: No Limitations - History of Present Illness Initial Comments: Patient is 69 years old female with history of hypertension, diabetes and congestive heart failure. Patient presented to the ER complaining of left-sided chest pain, tightness in nature radiated to the left arm. Patient stated that pain started this morning. Patient was discharged from the hospital 4 days ago and had a negative stress test. Patient denied any cough, fever or chills. MD Complaint: chest pain -: Last night Onset: during rest Pain Location: left chest Pain Radiation: LUE Severity: severe Severity scale (0 -10): 10 Quality: tightness Consistency: constant - Related Data Previous Rx's Medication Instructions Recorded Last Taken Type Acetaminophen [Acetaminophen TAB] 1,000 mg PO Q6H PRN tablet 10/13/18 06/26/19 13:10 Rx Budesonide [Pulmicort Respules] 0.5 mg IH Q12HRT #14 nebu 10/13/18 Unknown Rx DULoxetine [Cymbalta] 90 mg PO QDAY #90 capsule 10/13/18 Unknown Rx Ipratropium/Albuterol Sulfate 1 ampul IH BIDRT #30 ampul.neb 10/13/18 Unknown Rx [DUONEB *Not for PRN Use*] Melatonin [Melatonin 5MG TAB] 10 mg PO 1800 #30 tablet 10/13/18 06/26/19 Rx Potassium Chloride [K-Dur] 20 meq PO DAILY #30 tablet 10/13/18 06/26/19 13:09 Rx Torsemide [Demadex] 40 mg PO QDAY #60 tablet 10/13/18 06/26/19 13:09 Rx buPROPion XL [Wellbutrin XL] 150 mg PO QDAY #30 tablet 10/13/18 06/26/19 13:09 Rx cloNIDine-TTS PATCH [Catapres-Tts 0.2 mg TD Th #7 patch 10/13/18 Unknown Rx 0.2mg Patch] levETIRAcetam [Keppra TAB] 500 mg PO BID #60 tablet 10/13/18 Unknown Rx DULoxetine [Cymbalta] 30 mg PO QDAY #15 capsule 06/05/19 Unknown Rx Aspirin EC [Halfprin EC] 81 mg PO QDAY #30 tablet.dr 06/26/19 Unknown Rx Pantoprazole [Protonix] 40 mg PO QDAY #30 tablet 06/26/19 Unknown Rx oxyCODONE /ACETAMINOPHEN [Percocet 1 tab PO Q6HR PRN #10 tablet 06/26/19 Unknown Rx 5/325] ALBUTEROL NEB's [Proventil 0.083% 2.5 mg IH Q4HRT PRN #30 nebu 06/27/19 Unknown Rx NEBS] Azithromycin [Zithromax TAB] 500 mg PO QDAY #4 tablet 06/27/19 Unknown Rx Ondansetron (Nf) [Zofran TAB] 8 mg PO Q8HR PRN #30 tablet 06/27/19 Unknown Rx Melatonin [Melatonin 10MG RAPDIS] 10 mg PO QHS PRN #14 tab.rapdis 06/28/19 Unknown Rx Prednisone [predniSONE 10 mg 10 mg PO .TAPER #1 tab.ds.pk 06/28/19 Unknown Rx (6-Day Pack, 21 Tabs)] Allergies Allergy/AdvReac Type Severity Reaction Status Date / Time No Known Allergies Allergy Verified 05/22/18 09:54 Heart Score - HEART Score History: Moderately suspicious EKG: Non-specific Age: > 65 Risk factors: > 3 risk factors or hx of atherosclerotic disease Troponin: < normal limit HEART Score: 6 - Critical Actions Critical Actions: 4-6 pts:12-16.6% risk of adverse cardiac event. Should be admitted ED Review of Systems ROS: Stated complaint: CHEST TIGHTNESS Other details as noted in HPI Comment: All other systems reviewed and negative Constitutional: denies: chills, fever Respiratory: orthopnea, shortness of breath, SOB with exertion, SOB at rest. denies: wheezing Cardiovascular: chest pain Gastrointestinal: denies: abdominal pain, nausea, vomiting Musculoskeletal: denies: back pain ED Past Medical Hx - Past Medical History Hx Hypertension: Yes Hx Heart Attack/AMI: No Hx Congestive Heart Failure: Yes Hx Deep Vein Thrombosis: No Hx Pulmonary Embolism: No Hx GERD: Yes Hx Renal Disease: No Hx Arthritis: Yes Hx Seizures: No Hx Asthma: No Hx COPD: Yes Hx Tuberculosis: No Hx Dementia: No Additional medical history: chronic back pain - Surgical History Hx Coronary Stent: No Hx Pacemaker: No Hx Internal Defibrillator: No Hx Cholecystectomy: No Hx Appendectomy: No Additional Surgical History: hernia repair and lower back/ cycst removal - Social History Smoking Status: Never Smoker Substance Use Type: None - Medications Home Medications: Home Medications Medication Instructions Recorded Confirmed Last Taken Type Acetaminophen [Acetaminophen TAB] 1,000 mg PO Q6H PRN tablet 10/13/18 06/26/19 06/26/19 13:10 Rx Budesonide [Pulmicort Respules] 0.5 mg IH Q12HRT #14 nebu 10/13/18 06/26/19 Unknown Rx DULoxetine [Cymbalta] 90 mg PO QDAY #90 capsule 10/13/18 06/26/19 Unknown Rx Ipratropium/Albuterol Sulfate 1 ampul IH BIDRT #30 ampul.neb 10/13/18 06/26/19 Unknown Rx [DUONEB *Not for PRN Use*] Melatonin [Melatonin 5MG TAB] 10 mg PO 1800 #30 tablet 10/13/18 06/26/19 06/26/19 Rx Potassium Chloride [K-Dur] 20 meq PO DAILY #30 tablet 10/13/18 06/26/19 06/26/19 13:09 Rx Torsemide [Demadex] 40 mg PO QDAY #60 tablet 10/13/18 06/26/19 06/26/19 13:09 Rx buPROPion XL [Wellbutrin XL] 150 mg PO QDAY #30 tablet 10/13/18 06/26/19 06/26/19 13:09 Rx cloNIDine-TTS PATCH [Catapres-Tts 0.2 mg TD Th #7 patch 10/13/18 06/26/19 Unknown Rx 0.2mg Patch] levETIRAcetam [Keppra TAB] 500 mg PO BID #60 tablet 10/13/18 06/26/19 Unknown Rx DULoxetine [Cymbalta] 30 mg PO QDAY #15 capsule 06/05/19 06/26/19 Unknown Rx Aspirin EC [Halfprin EC] 81 mg PO QDAY #30 tablet. 06/26/19 Unknown Rx Pantoprazole [Protonix] 40 mg PO QDAY #30 tablet 06/26/19 Unknown Rx oxyCODONE /ACETAMINOPHEN [Percocet 1 tab PO Q6HR PRN #10 tablet 06/26/19 Unknown Rx 5/325] ALBUTEROL NEB's [Proventil 0.083% 2.5 mg IH Q4HRT PRN #30 nebu 06/27/19 Unknown Rx NEBS] Azithromycin [Zithromax TAB] 500 mg PO QDAY #4 tablet 06/27/19 Unknown Rx Ondansetron (Nf) [Zofran TAB] 8 mg PO Q8HR PRN #30 tablet 06/27/19 Unknown Rx Melatonin [Melatonin 10MG RAPDIS] 10 mg PO QHS PRN #14 tab.rapdis 06/28/19 Un known Rx Prednisone [predniSONE 10 mg 10 mg PO .TAPER #1 tab.ds.pk 06/28/19 Unknown Rx (6-Day Pack, 21 Tabs)] ED Physical Exam - General Limitations: No Limitations General appearance: alert, in distress - Head Head exam: Present: atraumatic, normocephalic, normal inspection - Eye Eye exam: Present: normal appearance, PERRL - ENT ENT exam: Present: normal exam, normal orophraynx, mucous membranes moist - Neck Neck exam: Present: normal inspection, full ROM. Absent: tenderness, meningismus - Respiratory Respiratory exam: Present: respiratory distress, rales, decreased breath sounds. Absent: wheezes, rhonchi, stridor - Cardiovascular Cardiovascular Exam: Present: regular rate, normal rhythm, normal heart sounds - GI/Abdominal GI/Abdominal exam: Present: soft, normal bowel sounds. Absent: distended, tenderness, guarding, rebound, rigid, diminished bowel sounds, organomegaly, mass, bruit, pulsatile mass, hernia - Extremities Exam Extremities exam: Present: normal inspection, full ROM, normal capillary refill, pedal edema. Absent: tenderness, calf tenderness - Back Exam Back exam: Present: normal inspection, full ROM. Absent: CVA tenderness (R), CVA tenderness (L) - Neurological Exam Neurological exam: Present: alert, oriented X3, CN II-XII intact - Psychiatric Psychiatric exam: Present: normal mood - Skin Skin exam: Present: warm, intact, normal color ED Course Vital Signs 07/01/19 07/01/19 07/01/19 16:02 16:16 16:30 Temperature Pulse Rate Respiratory Rate Blood Pressure 137/93 154/88 Blood Pressure [Left] O2 Sat by Pulse 100 97 98 Oximetry 07/01/19 07/01/19 07/01/19 18:22 19:02 19:15 Temperature 98 F Pulse Rate 92 H 85 Respiratory 14 12 Rate Blood Pressure 150/89 150/89 113/67 Blood Pressure 113/67 [Left] O2 Sat by Pulse 98 89 91 Oximetry 07/01/19 07/01/19 07/01/19 19:30 19:45 20:01 Temperature Pulse Rate 90 91 H 85 Respiratory 16 13 14 Rate Blood Pressure 113/67 130/65 150/89 Blood Pressure [Left] O2 Sat by Pulse 97 96 97 Oximetry 07/01/19 07/01/19 07/01/19 20:08 20:15 20:30 Temperature Pulse Rate 85 83 Respiratory 11 L 9 L 11 L Rate Blood Pressure 125/65 118/64 Blood Pressure [Left] O2 Sat by Pulse 98 98 98 Oximetry 07/01/19 07/01/19 07/01/19 20:45 21:06 21:15 Temperature Pulse Rate 82 98 H Respiratory 13 18 Rate Blood Pressure 125/68 125/68 Blood Pressure 133/73 [Left] O2 Sat by Pulse 99 97 99 Oximetry JORDANA score - Jordana Score Age > 65: (1) Yes Aspirin use within the Past 7 Days: (1) Yes 3 or more CAD Risk Factors: (1) Yes 2 or more Angina events in past 24 hrs: (1) Yes Known CAD with more than 50% Stenosis: (0) No Elevated Cardiac Markers: (0) No ST Deviation Greater than 0.5mm: (0) No JORDANA Score: 4 ED Medical Decision Making - Lab Data Result diagrams: 07/01/19 19:13 07/01/19 19:13 - EKG Data -: EKG Interpreted by Ia EKG shows normal: sinus rhythm Rate: normal - EKG Data Interpretation: no acute changes - Radiology Data Radiology results: report reviewed - Medical Decision Making Patient is 69 years old female with history of hypertension, diabetes and congestive heart failure. Patient presented to the ER complaining of left-sided chest pain, tightness in nature radiated to the left arm. Patient stated that pain started this morning. Patient was discharged from the hospital 4 days ago and had a negative stress test. Patient denied any cough, fever or chills. Labs reviewed and unremarkable including a negative troponin. Chest x-ray is unremarkable. I discussed the patient with Dr. De La Cruz, he advised to admit the patient to the hospitalist and he will follow-up with the patient in the morning. I discussed the patient with Dr. Monse Oneil, she agreed to admit the patient to medical service for further management. Critical Care Time: Yes Critical care time in (mins) excluding proc time.: 30 Critical care attestation.: If time is entered above; I have spent that time in minutes in the direct care of this critically ill patient, excluding procedure time. ED Disposition Clinical Impression: Unstable angina Disposition: DC-09 OP ADMIT IP TO THIS HOSP Is pt being admited?: Yes Condition: Stable Instructions: Angina (ED) Referrals: PRIMARY CARE, [Primary Care Provider] - 3-5 Days
[2019-07-01 19:29] LABS: Basophils % (Auto) 0.5 % (0.0-1.8); Eosinophils # (Auto) 0.3 K/mm3 (0.0-0.4); Eosinophils % (Auto) 3.7 % (0.0-4.3); Hematocrit 31.4 % (30.3-42.9); Hemoglobin 10.3 gm/dl (10.1-14.3); Lymphocytes # (Auto) 1.2 K/mm3 (1.2-5.4); Mean Corpuscular HGB Conc 33 % (30-34); Mean Corpuscular Volume 90 fl (79-97); Monocytes # (Auto) 0.5 K/mm3 (0.0-0.8); Monocytes % (Auto) 7.6 % (0.0-7.3); Platelet Count 276 K/mm3 (140-440); Red Blood Count 3.48 M/mm3 (3.65-5.03); Red Cell Distribution Width 17.1 % (13.2-15.2)
[2019-07-01 19:39] LABS: INR 1.59 (0.87-1.13); Partial Thromboplastin Time 32.8 Sec. (24.2-36.6)
--- NOTE | 2019-07-01 19:39 | XRay Report ---
CHEST 1 VIEW 7:14 PM INDICATION / CLINICAL INFORMATION: Chest pain radiating to both shoulders. COMPARISON: 06/25/19. FINDINGS: SUPPORT DEVICES: None. HEART / MEDIASTINUM: The heart size is normal with a left ventricular configuration. There is mild ao rtic tortuosity without aneurysm. LUNGS / PLEURA: The lungs are mildly hyperinflated. There is mild linear scarring in the right midlun g. No pneumothorax. ADDITIONAL FINDINGS: No significant additional findings. IMPRESSION: Emphysema without acute abnormality or other change. Signer Name: Mike Mo MD Signed: 07/01/2019 7:35 PM Workstation Name: [id number]
[2019-07-01 19:52] LABS: BUN/Creatinine Ratio 25; Blood Urea Nitrogen 37 mg/dL (7-17); Calcium 8.8 mg/dL (8.4-10.2); Hemolysis Index 3
[2019-07-01] MEDS ORDERED: MORPHINE 2 MG/1 ML INJ IV ONE (21:15)
[2019-07-01] MEDS ORDERED: ALBUTEROL 2.5 MG/3 ML NEBU IH ONE (21:50)
--- NOTE | 2019-07-01 22:45 | History and Physical Report ---
History of Present Illness History of present illness: 69-year-old woman with multiple medical problems including hypertension, CHF, COPD on home oxygen, anxiety, rheumatoid arthritis comes emergency room with complaints of chest pain. The patient was just discharged from the hospital 3 days ago where she was evaluated for chest pain and had a stress test done which was negative. States that her chest pain had improved but today it got worse, pain is in the left chest which she describes as a tightness, constant, associated with soreness in bilateral shoulders, intensity 5/10, better with IV morphine. Admits to nausea, shortness of breath, no diaphoresis or palpitation. Patient will be admitted for recurrent chest pain Review Of Systems: Constitutional: no weight loss, fever, chills Ears, eyes, nose, mouth and throat: no nasal congestion, no nasal discharge, no sinus pressure, blurry vision, diplopia Neck: No neck pain or rigidity. Cardiovascular: No palpitation Respiratory: No shortness of breath, cough Gastrointestinal: No hematochezia Genitourinary : no dysuria, frequency Musculoskeletal: no muscle ache , joint pain Integumentary: no rash, no pruritis Neurological: no parathesias, focal weakness Endocrine: no cold or heat intolerance, no polyuria or polydipsia Hematologic/Lymphatic: no easy bruising, no easy bleeding, no gland swelling Allergic/Immunologic: no urticaria, no angioedema. PAST MEDICAL HISTORY: hypertension, CHF, COPD on home oxygen, anxiety, rheumatoid arthritis PAST SURGICAL HISTORY: Back, hernia SOCIAL HISTORY: Denies alcohol, tobacco, drugs FAMILY HISTORY: Hypertension Medications and Allergies Allergies Allergy/AdvReac Type Severity Reaction Status Date / Time No Known Allergies Allergy Verified 05/22/18 09:54 Home Medications Medication Instructions Recorded Confirmed Last Taken Type Acetaminophen [Acetaminophen TAB] 1,000 mg PO Q6H PRN tablet 10/13/18 06/26/19 06/26/19 13:10 Rx Budesonide [Pulmicort Respules] 0.5 mg IH Q12HRT #14 nebu 10/13/18 06/26/19 Unknown Rx DULoxetine [Cymbalta] 90 mg PO QDAY #90 capsule 10/13/18 06/26/19 Unknown Rx Ipratropium/Albuterol Sulfate 1 ampul IH BIDRT #30 ampul.neb 10/13/18 06/26/19 Unknown Rx [DUONEB *Not for PRN Use*] Melatonin [Melatonin 5MG TAB] 10 mg PO 1800 #30 tablet 10/13/18 06/26/19 06/26/19 Rx Potassium Chloride [K-Dur] 20 meq PO DAILY #30 tablet 10/13/18 06/26/19 06/26/19 13:09 Rx Torsemide [Demadex] 40 mg PO QDAY #60 tablet 10/13/18 06/26/19 06/26/19 13:09 Rx buPROPion XL [Wellbutrin XL] 150 mg PO QDAY #30 tablet 10/13/18 06/26/19 06/26/19 13:09 Rx cloNIDine-TTS PATCH [Catapres-Tts 0.2 mg TD Th #7 patch 10/13/18 06/26/19 Unknown Rx 0.2mg Patch] levETIRAcetam [Keppra TAB] 500 mg PO BID #60 tablet 10/13/18 06/26/19 Unknown Rx DULoxetine [Cymbalta] 30 mg PO QDAY #15 capsule 06/05/19 06/26/19 Unknown Rx Aspirin EC [Halfprin EC] 81 mg PO QDAY #30 tablet. 06/26/19 Unknown Rx Pantoprazole [Protonix] 40 mg PO QDAY #30 tablet 06/26/19 Unknown Rx oxyCODONE /ACETAMINOPHEN [Percocet 1 tab PO Q6HR PRN #10 tablet 06/26/19 Unknown Rx 5/325] ALBUTEROL NEB's [Proventil 0.083% 2.5 mg IH Q4HRT PRN #30 nebu 06/27/19 Unknown Rx NEBS] Azithromycin [Zithromax TAB] 500 mg PO QDAY #4 tablet 06/27/19 Unknown Rx Ondansetron (Nf) [Zofran TAB] 8 mg PO Q8HR PRN #30 tablet 06/27/19 Unknown Rx Melatonin [Melatonin 10MG RAPDIS] 10 mg PO QHS PRN #14 tab.rapdis 06/28/19 Unknown Rx Prednisone [predniSONE 10 mg 10 mg PO .TAPER #1 tab.ds.pk 06/28/19 Unknown Rx (6-Day Pack, 21 Tabs)] Exam - Physical Exam Narrative exam: Gen. appearance: Patient lying in bed, no apparent distress HEENT: Normocephalic, atraumatic, pupils equally round and reactive to light, extraocular movement intact, and no sclericterus,. No JVD or thyromegaly or nodule,neck supple, no carotid bruit ,mucous membranes moist, no exudate or erythema Heart: S1, S2, regular rate and rhythm Lungs: Clear bilaterally, breathing comfortable Abdomen: Positive bowel sounds, nontender, nondistended, no organomegaly Extremity: no edema, cyanosis, clubbing Skin: No rash, nodules, warm, dry Neuro: Cranial nerves II to XII intact, speech is fluent, moves extremities, sensory intact - Constitutional Vitals: Temp Pulse Resp BP Pulse Ox 98 F 93 H 20 133/73 99 07/01/19 19:02 07/01/19 22:05 07/01/19 22:05 07/01/19 21:15 07/01/19 21:15 Results - Labs CBC & Chem 7: 07/01/19 19:13 07/01/19 19:13 Labs: Abnormal lab results 07/01/19 07/01/19 07/01/19 Range/Units 19:13 19:13 19:13 RBC 3.48 L (3.65-5.03) M/mm3 RDW 17.1 H (13.2-15.2) % [place] % (Auto) 7.6 H (0.0-7.3) % Seg Neutrophils % 71.2 H (40.0-70.0) % PT 18.6 H (12.2-14.9) Sec. INR 1.59 H (0.87-1.13) BUN 37 H (7-17) mg/dL Creatinine 1.5 H (0.7-1.2) mg/dL Glucose 107 H (65-100) mg/dL - Imaging and Cardiology EKG: image reviewed Chest x-ray: report reviewed Assessment and Plan Assessment Chest pain Check cardiac enzymes, consult cardiology Stress test 3 days ago was negative Continue aspirin, IV morphine Acute renal insufficiency secondary to diuretic Monitor kidney function Congestive heart failure, Ef 45-50% stable, continue home meds COPD, stable Anxiety, continue outpatient medication Hypertension Continue outpatient medication DVT prophylaxis
[2019-07-01] MEDS ORDERED: ONDANSETRON 4 MG/2 ML INJ IV PRN (23:17)
[2019-07-01] MEDS ORDERED: ACETAMINOPHEN 325 MG TAB PO PRN (23:17)
[2019-07-02] MEDS: MORPHINE 2 MG/1 ML INJ IV PRN ×3 (02:09→14:37)
[2019-07-02] MEDS ORDERED: ALPRAZolam 0.25 MG TAB PO ONE ×2 (04:05→20:42)
[2019-07-02 04:46] LABS: Basophils % (Auto) 0.6 % (0.0-1.8); Eosinophils # (Auto) 0.2 K/mm3 (0.0-0.4); Eosinophils % (Auto) 3.6 % (0.0-4.3); Hematocrit 31.3 % (30.3-42.9); Hemoglobin 10.1 gm/dl (10.1-14.3); Lymphocytes # (Auto) 1.4 K/mm3 (1.2-5.4); Lymphocytes % (Auto) 22.8 % (13.4-35.0); Mean Corpuscular HGB Conc 32 % (30-34); Mean Corpuscular Volume 91 fl (79-97); Monocytes # (Auto) 0.5 K/mm3 (0.0-0.8); Monocytes % (Auto) 8.3 % (0.0-7.3); Platelet Count 264 K/mm3 (140-440); Red Blood Count 3.44 M/mm3 (3.65-5.03); Red Cell Distribution Width 17.6 % (13.2-15.2)
[2019-07-02 05:03] LABS: Calcium 8.8 mg/dL (8.4-10.2)
[2019-07-02] MEDS ORDERED: ENOXAPARIN 30 MG/0.3 ML INJ SUB-Q SCH (10:00)
--- NOTE | 2019-07-02 10:57 | Consultation ---
History of Present Illness Consult date: 07/02/19 Requesting physician: DAVIS PEREZ Consult reason: chest pain History of present illness: The pt is a 67 YO female with a past medical history significant for parox atrial tachycardia, COPD, chronic respiratory failure requiring home O2, former tobacco use (quit smoking 3 years ago), HTN, HLP, RA, anxiety. She presented with complaints of SOB and chest pain. She was discharged from [facility] on 06/28/2019 following eval/management of atypical chest pain and COPD exacerbation. She underwent lexiscan MPI stress test on Friday which was negative. She states that Friday evening, after she got home, she noted the onset of SOB and intermittent chest tightness again. Her SOB was so bad that she was unable to sleep. Her symptoms persisted the last few days so she decided to come back for reevaluation. Echo done 06/27/2019 showed EF 60-65%, mild to mod TR, RVSP 45-50mmHg, mild MR. Past History Past Medical History: other (as per HPI) Medications and Allergies Allergies Allergy/AdvReac Type Severity Reaction Status Date / Time No Known Allergies Allergy Verified 05/22/18 09:54 Home Medications Medication Instructions Recorded Confirmed Last Taken Type Acetaminophen [Acetaminophen TAB] 1,000 mg PO Q6H PRN tablet 10/13/18 06/26/19 06/26/19 13:10 Rx Budesonide [Pulmicort Respules] 0.5 mg IH Q12HRT #14 nebu 10/13/18 06/26/19 Unknown Rx DULoxetine [Cymbalta] 90 mg PO QDAY #90 capsule 10/13/18 06/26/19 Unknown Rx Ipratropium/Albuterol Sulfate 1 ampul IH BIDRT #30 ampul.neb 10/13/18 06/26/19 Unknown Rx [DUONEB *Not for PRN Use*] Melatonin [Melatonin 5MG TAB] 10 mg PO 1800 #30 tablet 10/13/18 06/26/19 06/26/19 Rx Potassium Chloride [K-Dur] 20 meq PO DAILY #30 tablet 10/13/18 06/26/19 06/26/19 13:09 Rx Torsemide [Demadex] 40 mg PO QDAY #60 tablet 10/13/18 06/26/19 06/26/19 13:09 Rx buPROPion XL [Wellbutrin XL] 150 mg PO QDAY #30 tablet 10/13/18 06/26/19 05/0 04/15 13:09 Rx cloNIDine-TTS PATCH [Catapres-Tts 0.2 mg TD Th #7 patch 10/13/18 06/26/19 Unknown Rx 0.2mg Patch] levETIRAcetam [Keppra TAB] 500 mg PO BID #60 tablet 10/13/18 06/26/19 Unknown Rx DULoxetine [Cymbalta] 30 mg PO QDAY #15 capsule 06/05/19 06/26/19 Unknown Rx Aspirin EC [Halfprin EC] 81 mg PO QDAY #30 tablet.dr 06/26/19 Unknown Rx Pantoprazole [Protonix] 40 mg PO QDAY #30 tablet 06/26/19 Unknown Rx oxyCODONE /ACETAMINOPHEN [Percocet 1 tab PO Q6HR PRN #10 tablet 06/26/19 Unknown Rx 5/325] ALBUTEROL NEB's [Proventil 0.083% 2.5 mg IH Q4HRT PRN #30 nebu 06/27/19 Unknown Rx NEBS] Azithromycin [Zithromax TAB] 500 mg PO QDAY #4 tablet 06/27/19 Unknown Rx Ondansetron (Nf) [Zofran TAB] 8 mg PO Q8HR PRN #30 tablet 06/27/19 Unknown Rx Melatonin [Melatonin 10MG RAPDIS] 10 mg PO QHS PRN #14 tab.rapdis 06/28/19 Unknown Rx Prednisone [predniSONE 10 mg 10 mg PO .TAPER #1 tab.ds.pk 06/28/19 Unknown Rx (6-Day Pack, 21 Tabs)] Active Meds: Active Medications Acetaminophen (Tylenol) 650 mg PO Q4H PRN PRN Reason: Pain MILD(1-3)/Fever >100.5/AMOR Enoxaparin Sodium (Enoxaparin) 40 mg SUB-Q QDAY@1000 ANGELES Morphine Sulfate (Morphine) 2 mg IV Q4H PRN PRN Reason: Pain, Moderate (4-6) Last Admin: 07/02/19 09:30 Dose: 2 mg Documented by: Ondansetron HCl (Zofran) 4 mg IV Q8H PRN PRN Reason: Nausea And Vomiting Sodium Chloride (Sodium Chloride Flush Syringe 10 Ml) 10 ml IV BID ANGELES Sodium Chloride (Sodium Chloride Flush Syringe 10 Ml) 10 ml IV PRN PRN PRN Reason: LINE FLUSH Review of Systems Constitutional: chills, no weight loss, no weight gain, no fever, no sweats Ears, nose, mouth and throat: no ear pain, no nose pain, no sinus pressure, no sinus pain Cardiovascular: chest pain, shortness of breath, dyspnea on exertion, no orthopnea, no palpitations, no rapid/irregular heart beat, no edema, no syncope, no lightheadedness, no high blood pressure, no leg edema Respiratory: cough, shortness of breath, dyspnea on exertion, wheezing, no congestion, no pain on inspiration Gastrointestinal: no abdominal pain, no nausea, no vomiting, no diarrhea, no constipation, no change in bowel habits Genitourinary Female: no pelvic pain, no flank pain, no dysuria, no urinary frequency, no urgency Musculoskeletal: no neck stiffness, no neck pain, no shooting arm pain, no arm numbness/tingling, no shooting leg pain Integumentary: no rash, no pruritis, no redness, no sores, no wounds Neurological: no head injury, no paralysis, no weakness, no parathesias, no num bness, no tingling, no seizures, no syncope Psychiatric: no anxiety Endocrine: no cold intolerance, no heat intolerance Hematologic/Lymphatic: no easy bruising, no easy bleeding Allergic/Immunologic: no urticaria Physical Examination Vital Signs Pulse Ox 100 07/01/19 16:02 General appearance: no acute distress HEENT: Positive: PERRL, Normocephaly, Mucus Membranes Moist Neck: Positive: neck supple, trachea midline Cardiac: Positive: Reg Rate and Rhythm, S1/S2 Lungs: Positive: Decreased Breath Sounds, Wheezes, Oxygen Neuro: Positive: Grossly Intact Abdomen: Negative: Tender Skin: Negative: Rash Musculoskeletal: No Pain Extremities: Absent: edema Results 07/02/19 04:07 07/02/19 04:07 Coagulation 07/01/19 Range/Units 19:13 PT 18.6 H (12.2-14.9) Sec. INR 1.59 H (0.87-1.13) APTT 32.8 (24.2-36.6) Sec. CBC 07/01/19 07/02/19 Range/Units 19:13 04:07 WBC 7.0 6.1 (4.5-11.0) K/mm3 RBC 3.48 L 3.44 L (3.65-5.03) M/mm3 Hgb 10.3 10.1 (10.1-14.3) gm/dl Hct 31.4 31.3 (30.3-42.9) % Plt Count 276 264 (140-440) K/mm3 Lymph # 1.2 1.4 (1.2-5.4) K/mm3 [place] # 0.5 0.5 (0.0-0.8) K/mm3 Eos # 0.3 0.2 (0.0-0.4) K/mm3 Baso # 0.0 0.0 (0.0-0.1) K/mm3 Comprehensive Metabolic Panel 07/01/19 07/02/19 Range/Units 19:13 04:07 Sodium 143 145 (137-145) mmol/L Potassium 4.2 4.2 (3.6-5.0) mmol/L Chloride 102.7 104.9 (98-107) mmol/L Carbon Dioxide 29 27 (22-30) mmol/L BUN 37 H 34 H (7-17) mg/dL Creatinine 1.5 H 1.2 (0.7-1.2) mg/dL Glucose 107 H 115 H (65-100) mg/dL Calcium 8.8 8.8 (8.4-10.2) mg/dL - Imaging and Cardiology Echo: report reviewed (06/27/2019 showed EF 60-65%, mild to mod TR, RVSP 45- 50mmHg, mild MR. ) EKG: report reviewed, image reviewed EKG interpretations - Telemetry EKG Rhythm: Sinus Rhythm - EKG Sinus rhythms and dysrhythmias: sinus rhythm Assessment and Plan S/p lexiscan MPI stress test 06/28/2019 which was negative. Echo done 06/27/2019 showed EF 60-65%, mild to mod TR, RVSP 45-50mmHg, mild MR. AMI r/o. Susect pt's atypical chest pain is pleuritic in etiology. Recommend pulmonary consultation for management of COPD exacerbation. No plans for additional cardiac w/u at this time. Will follow on as needed basis. The patient has been seen in conjunction with Dr. Olvera who agrees with the assessment and plan of care. - Patient Problems (1) Atypical chest pain Current Visit: Yes Status: Resolved (2) COPD exacerbation Current Visit: Yes Status: Acute (3) Chronic narcotic dependence Current Visit: Yes Status: Acute (4) Rheumatoid arthritis Current Visit: No Status: Acute (5) Tobacco abuse Current Visit: No Status: Acute (6) Anxiety Current Visit: No Status: Chronic (7) Chronic low back pain Current Visit: No Status: Chronic Qualifiers: Back pain laterality: midline Sciatica presence: without sciatica Qualified Code(s): M54.5 - Low back pain; G89.29 - Other chronic pain (8) HTN (hypertension) Current Visit: No Status: Chronic Qualifiers: Hypertension type: essential hypertension Qualified Code(s): I10 - Essential (primary) hypertension (9) Pulmonary hypertension Current Visit: No Status: Chronic
--- NOTE | 2019-07-02 14:18 | Progress Note ---
Assessment and Plan Assessment and plan: --Atypical chest pain Serial cardiac enzymes negative, Recent stress test 3 days ago was negative Continue current cardiac medications Cardiology evaluated, no further work-up --Cute exacerbation of COPD; Oxygen, nebulizers, IV steroids, antibiotics Supportive care, Patient has home oxygen --Acute kidney injury : Improved Vasomotor nephropathy , Significant improvement Avoid nephrotoxins --Anxiety disorder: continue outpatient medication --Hypertension; rate controlled Continue outpatient medication --DVT prophylaxis Lovenox Monitor closely and adjust management as needed History Interval history: Patient seen and examined medical records reviewed Patient complains of chest pain and shortness of breath Today morning patient feels little better Denies headache or dizziness Vital signs reviewed Patient has home oxygen Hospitalist Physical - Constitutional Vitals: Temp Pulse Resp BP Pulse Ox 98.6 F 90 18 122/62 98 07/02/19 08:40 07/02/19 08:40 07/02/19 08:40 07/02/19 08:40 07/02/19 08:40 General appearance: Present: no acute distress, well-nourished - EENT Eyes: Present: PERRL, EOM intact - Neck Neck: Present: supple, normal ROM - Respiratory Respiratory effort: normal Respiratory: bilateral: diminished, wheezing, negative: rales, rhonchi - Cardiovascular Rhythm: regular Heart Sounds: Present: S1 & S2 - Extremities Extremities: no ischemia, No edema - Abdominal General gastrointestinal: soft, non-tender, non-distended, normal bowel sounds - Integumentary Integumentary: Present: clear, warm - Psychiatric Psychiatric: appropriate mood/affect, cooperative - Neurologic Neurologic: CNII-XII intact, moves all extremities JORDANA score - Jordana Score Age > 65: (1) Yes Aspirin use within the Past 7 Days: (1) Yes 3 or more CAD Risk Factors: (1) Yes 2 or more Angina events in past 24 hrs: (1) Yes Known CAD with more than 50% Stenosis: (0) No Elevated Cardiac Markers: (0) No ST Deviation Greater than 0.5mm: (0) No JORDANA Score: 4 Results - Labs CBC & Chem 7: 07/02/19 04:07 07/02/19 04:07 Labs: Laboratory Last Values WBC 6.1 K/mm3 (4.5-11.0) 07/02/19 04:07 RBC 3.44 M/mm3 (3.65-5.03) L 07/02/19 04:07 Hgb 10.1 gm/dl (10.1-14.3) 07/02/19 04:07 Hct 31.3 % (30.3-42.9) 07/02/19 04:07 MCV 91 fl (79-97) 07/02/19 04:07 MCH 29 pg (28-32) 07/02/19 04:07 MCHC 32 % (30-34) 07/02/19 04:07 RDW 17.6 % (13.2-15.2) H 07/02/19 04:07 Plt Count 264 K/mm3 (140-440) 07/02/19 04:07 Lymph % (Auto) 22.8 % (13.4-35.0) 07/02/19 04:07 [place] % (Auto) 8.3 % (0.0-7.3) H 07/02/19 04:07 Eos % (Auto) 3.6 % (0.0-4.3) 07/02/19 04:07 Baso % (Auto) 0.6 % (0.0-1.8) 07/02/19 04:07 Lymph # 1.4 K/mm3 (1.2-5.4) 07/02/19 04:07 [place] # 0.5 K/mm3 (0.0-0.8) 07/02/19 04:07 Eos # 0.2 K/mm3 (0.0-0.4) 07/02/19 04:07 Baso # 0.0 K/mm3 (0.0-0.1) 07/02/19 04:07 Seg Neutrophils % 64.7 % (40.0-70.0) 07/02/19 04:07 Seg Neutrophils # 4.0 K/mm3 (1.8-7.7) 07/02/19 04:07 PT 18.6 Sec. (12.2-14.9) H 07/01/19 19:13 INR 1.59 (0.87-1.13) H 07/01/19 19:13 APTT 32.8 Sec. (24.2-36.6) 07/01/19 19:13 Sodium 145 mmol/L (137-145) 07/02/19 04:07 Potassium 4.2 mmol/L (3.6-5.0) 07/02/19 04:07 Chloride 104.9 mmol/L (98-107) 07/02/19 04:07 Carbon Dioxide 27 mmol/L (22-30) 07/02/19 04:07 Anion Gap 17 mmol/L 07/02/19 04:07 BUN 34 mg/dL (7-17) H 07/02/19 04:07 Creatinine 1.2 mg/dL (0.7-1.2) 07/02/19 04:07 Estimated GFR 54 ml/min 07/02/19 04:07 BUN/Creatinine Ratio 28 % 07/02/19 04:07 Glucose 115 mg/dL (65-100) H 07/02/19 04:07 Calcium 8.8 mg/dL (8.4-10.2) 07/02/19 04:07 Troponin T < 0.010 ng/mL (0.00-0.029) 07/02/19 00:35 NT-Pro-B Natriuret Pep 125.2 pg/mL (0-900) 07/01/19 19:13 Lipase 30 units/L (13-60) 07/01/19 19:13 Lam/IV: Voiding Method Toilet IV Catheter Type [Left Wrist] INT / Saline Lock Active Medications - Current Medications Current Medications: Generic Name Dose Route Start Last Admin Trade Name Freq PRN Reason Stop Dose Admin Acetaminophen 650 mg 07/01/19 23:17 Tylenol PO Q4H PRN Pain MILD(1-3)/Fever >100.5/AMOR Enoxaparin Sodium 40 mg 07/03/19 10:00 Enoxaparin SUB-Q QDAY@1000 [facility] Morphine Sulfate 2 mg 07/01/19 23:17 07/02/19 09:30 Morphine IV 2 mg Q4H PRN Administration Pain, Moderate (4-6) Ondansetron HCl 4 mg 07/01/19 23:17 Zofran IV Q8H PRN Nausea And Vomiting Sodium Chloride 10 ml 07/02/19 10:00 Sodium Chloride Flush Syringe 10 Ml IV BID ANGELES Sodium Chloride 10 ml 07/01/19 23:17 Sodium Chloride Flush Syringe 10 Ml IV PRN PRN LINE FLUSH
[2019-07-02] MEDS ORDERED: cloNIDine TTS 0.2 MG/24 HR PATCH TD SCH (15:00)
[2019-07-02] MEDS: methylPREDNISolone Sod Succinate 40 MG/1 ML INJ IV SCH ×2 (16:36→23:24)
[2019-07-02 20:49] VITALS: BP 132/59
[2019-07-02] MEDS: levETIRAcetam 500 MG TAB PO SCH (21:02)
[2019-07-02] MEDS: IPRATROPIUM/ALBUTEROL SULFATE 3 ML AMPUL.NEB IH SCH (21:15)
[2019-07-02] MEDS: BUDESONIDE 0.5 MG/2 ML NEBU IH SCH (21:15)
[2019-07-02] MEDS: oxyCODONE /ACETAMINOPHEN 5-325MG TAB PO PRN (23:24)
[2019-07-03] MEDS: oxyCODONE /ACETAMINOPHEN 5-325MG TAB PO PRN ×3 (05:43→21:56)
[2019-07-03] MEDS: methylPREDNISolone Sod Succinate 40 MG/1 ML INJ IV SCH ×3 (08:39→23:24)
[2019-07-03] MEDS ORDERED: TORSEMIDE 40 MG PO SCH (10:00)
[2019-07-03] MEDS: IPRATROPIUM/ALBUTEROL SULFATE 3 ML AMPUL.NEB IH SCH ×2 (10:04→20:54)
[2019-07-03] MEDS: BUDESONIDE 0.5 MG/2 ML NEBU IH SCH ×2 (10:04→20:54)
[2019-07-03] MEDS: ENOXAPARIN 40 MG/0.4 ML INJ SUB-Q SCH (11:09)
[2019-07-03] MEDS: ASPIRIN EC 81 MG TAB PO SCH (11:09)
[2019-07-03] MEDS: PANTOPRAZOLE 40 MG TAB PO SCH (11:09)
[2019-07-03] MEDS: levETIRAcetam 500 MG TAB PO SCH ×2 (11:10→21:56)
[2019-07-03] MEDS: TORSEMIDE 10 MG TAB PO SCH (11:16)
[2019-07-03] MEDS: buPROPion XL 150 MG TAB PO SCH (12:11)
[2019-07-03] MEDS ORDERED: MORPHINE 2 MG/1 ML INJ IV PRN (15:14)
--- NOTE | 2019-07-03 15:28 | Progress Note ---
Assessment and Plan Assessment and plan: --Anxiety disorder; low-dose Xanax as needed Patient will see psych upon discharge --Acute exacerbation of COPD; Patient has audible wheeze and anxiety Oxygen, nebulizers, IV steroids, antibiotics Supportive care, Patient has home oxygen --Atypical chest pain Serial cardiac enzymes negative, Recent stress test was negative Continue current cardiac medications Cardiology evaluated, no further work-up --Acute kidney injury : Vasomotor nephropathy , Significant improvement Avoid nephrotoxins --Anxiety disorder: continue outpatient medication Low-dose Xanax --Hypertension; rate controlled Continue outpatient medication --DVT prophylaxis Lovenox Monitor closely and adjust management as needed Ambulate as tolerated, DC home tomorrow if stable History Interval history: Patient seen and examined Patient's chart and tests reviewed Patient is very anxious, short of breath Wheezing, however O2 sats reasonable level In mild distress Vital signs noted Hospitalist Physical - Constitutional Vitals: Temp Pulse Resp BP Pulse Ox 98.3 F 105 H 20 183/80 100 07/03/19 11:24 07/03/19 12:00 07/03/19 12:54 07/03/19 11:24 07/03/19 11:24 General appearance: Present: mild distress, well-nourished - EENT Eyes: Present: PERRL, EOM intact - Neck Neck: Present: supple, normal ROM - Respiratory Respiratory effort: normal Respiratory: bilateral: diminished, rhonchi, wheezing, negative: rales - Cardiovascular Rhythm: regular Heart Sounds: Present: S1 & S2 - Extremities Extremities: no ischemia, No edema - Abdominal General gastrointestinal: soft, non-tender, non-distended, normal bowel sounds - Integumentary Integumentary: Present: clear, warm - Psychiatric Psychiatric: appropriate mood/affect - Neurologic Neurologic: CNII-XII intact, moves all extremities JORDANA score - Jordana Score Age > 65: (1) Yes Aspirin use within the Past 7 Days: (1) Yes 3 or more CAD Risk Factors: (1) Yes 2 or more Angina events in past 24 hrs: (1) Yes Known CAD with more than 50% Stenosis: (0) No Elevated Cardiac Markers: (0) No ST Deviation Greater than 0.5mm: (0) No JORDANA Score: 4 Results - Labs CBC & Chem 7: 07/02/19 04:07 07/02/19 04:07 Labs: Laboratory Last Values WBC 6.1 K/mm3 (4.5-11.0) 07/02/19 04:07 RBC 3.44 M/mm3 (3.65-5.03) L 07/02/19 04:07 Hgb 10.1 gm/dl (10.1-14.3) 07/02/19 04:07 Hct 31.3 % (30.3-42.9) 07/02/19 04:07 MCV 91 fl (79-97) 07/02/19 04:07 MCH 29 pg (28-32) 07/02/19 04:07 MCHC 32 % (30-34) 07/02/19 04:07 RDW 17.6 % (13.2-15.2) H 07/02/19 04:07 Plt Count 264 K/mm3 (140-440) 07/02/19 04:07 Lymph % (Auto) 22.8 % (13.4-35.0) 07/02/19 04:07 [place] % (Auto) 8.3 % (0.0-7.3) H 07/02/19 04:07 Eos % (Auto) 3.6 % (0.0-4.3) 07/02/19 04:07 Baso % (Auto) 0.6 % (0.0-1.8) 07/02/19 04:07 Lymph # 1.4 K/mm3 (1.2-5.4) 07/02/19 04:07 [place] # 0.5 K/mm3 (0.0-0.8) 07/02/19 04:07 Eos # 0.2 K/mm3 (0.0-0.4) 07/02/19 04:07 Baso # 0.0 K/mm3 (0.0-0.1) 07/02/19 04:07 Seg Neutrophils % 64.7 % (40.0-70.0) 07/02/19 04:07 Seg Neutrophils # 4.0 K/mm3 (1.8-7.7) 07/02/19 04:07 PT 18.6 Sec. (12.2-14.9) H 07/01/19 19:13 INR 1.59 (0.87-1.13) H 07/01/19 19:13 APTT 32.8 Sec. (24.2-36.6) 07/01/19 19:13 Sodium 145 mmol/L (137-145) 07/02/19 04:07 Potassium 4.2 mmol/L (3.6-5.0) 07/02/19 04:07 Chloride 104.9 mmol/L (98-107) 07/02/19 04:07 Carbon Dioxide 27 mmol/L (22-30) 07/02/19 04:07 Anion Gap 17 mmol/L 07/02/19 04:07 BUN 34 mg/dL (7-17) H 07/02/19 04:07 Creatinine 1.2 mg/dL (0.7-1.2) 07/02/19 04:07 Estimated GFR 54 ml/min 07/02/19 04:07 BUN/Creatinine Ratio 28 % 07/02/19 04:07 Glucose 115 mg/dL (65-100) H 07/02/19 04:07 Calcium 8.8 mg/dL (8.4-10.2) 07/02/19 04:07 Troponin T < 0.010 ng/mL (0.00-0.029) 07/02/19 00:35 NT-Pro-B Natriuret Pep 125.2 pg/mL (0-900) 07/01/19 19:13 Lipase 30 units/L (13-60) 07/01/19 19:13 Nasal Screen MRSA (PCR) Positive (Negative) 07/02/19 03:45 Lam/IV: Voiding Method Toilet IV Catheter Type [Left Wrist] INT / Saline Lock Active Medications - Current Medications Current Medications: Generic Name Dose Route Start Last Admin Trade Name Freq PRN Reason Stop Dose Admin Acetaminophen 650 mg 07/01/19 23:17 Tylenol PO Q4H PRN Pain MILD(1-3)/Fever >100.5/AMOR Albuterol/Ipratropium 1 ampul 07/02/19 20:00 07/03/19 10:04 Duoneb *Not For Prn Use* IH 1 ampul BIDRT ANGELES Administration Alprazolam 0.25 mg 07/03/19 15:11 Xanax PO Q8H PRN Anxiety Aspirin 81 mg 07/03/19 10:00 07/03/19 11:09 Halfprin Ec PO 81 mg QDAY ANGELES Administration Budesonide 0.5 mg 07/02/19 20:00 07/03/19 10:04 Pulmicort IH 0.5 mg Q12HRT ANGELES Administration Bupropion HCl 150 mg 07/03/19 10:00 07/03/19 12:11 Wellbutrin Xl PO 150 mg QDAY ANGELES Administration Clonidine HCl 0.2 mg 07/02/19 15:00 07/02/19 16:35 Catapres-Tts Patch TD 0.2 mg Th ANGELES Administration Enoxaparin Sodium 40 mg 07/03/19 10:00 07/03/19 11:09 Enoxaparin SUB-Q 40 mg QDAY@1000 ANGELES Administration Levetiracetam 500 mg 07/02/19 22:00 07/03/19 11:10 Keppra PO 500 mg BID ANGELES Administration Methylprednisolone Sodium Succinate 40 mg 07/02/19 15:00 07/03/19 14:55 Solu-Medrol IV 40 mg Q8H ANGELES Administration Morphine Sulfate 2 mg 07/01/19 23:17 07/02/19 14:37 Morphine IV 2 mg Q4H PRN Administration Pain, Moderate (4-6) Mupirocin 1 applic 07/03/19 22:00 Bactroban 2% NS BID ANGELES Ondansetron HCl 4 mg 07/01/19 23:17 Zofran IV Q8H PRN Nausea And Vomiting Oxycodone/Acetaminophen 1 tab 07/02/19 20:43 07/03/19 12:14 Percocet 5/325 PO 1 tab Q6H PRN Administration Pain, Moderate (4-6) Pantoprazole Sodium 40 mg 07/03/19 10:00 07/03/19 11:09 Protonix PO 40 mg QDAY ANGELES Administration Sodium Chloride 10 ml 07/02/19 10:00 07/03/19 11:10 Sodium Chloride Flush Syringe 10 Ml IV 10 ml BID ANGELES Administration Sodium Chloride 10 ml 07/01/19 23:17 Sodium Chloride Flush Syringe 10 Ml IV PRN PRN LINE FLUSH Torsemide 40 mg 07/03/19 10:00 07/03/19 11:16 Demadex PO 40 mg QDAY ANGELES Administration
[2019-07-03] MEDS: ALPRAZolam 0.25 MG TAB PO PRN ×2 (15:35→23:25)
[2019-07-03] MEDS: MUPIROCIN 2% OINT 22 GM NS SCH (21:57)
[2019-07-04] MEDS: oxyCODONE /ACETAMINOPHEN 5-325MG TAB PO PRN ×3 (04:41→17:10)
[2019-07-04] MEDS: IPRATROPIUM/ALBUTEROL SULFATE 3 ML AMPUL.NEB IH SCH (08:45)
[2019-07-04] MEDS: BUDESONIDE 0.5 MG/2 ML NEBU IH SCH (08:45)
[2019-07-04] MEDS ORDERED: DOCUSATE SODIUM 100 MG CAP PO SCH (10:00)
[2019-07-04] MEDS: methylPREDNISolone Sod Succinate 40 MG/1 ML INJ IV SCH ×2 (10:00→16:04)
[2019-07-04] MEDS: levETIRAcetam 500 MG TAB PO SCH (10:22)
[2019-07-04] MEDS: PANTOPRAZOLE 40 MG TAB PO SCH (10:22)
[2019-07-04] MEDS: ENOXAPARIN 40 MG/0.4 ML INJ SUB-Q SCH (10:22)
[2019-07-04] MEDS: TORSEMIDE 10 MG TAB PO SCH (10:23)
[2019-07-04] MEDS: buPROPion XL 150 MG TAB PO SCH (10:24)
[2019-07-04] MEDS: MUPIROCIN 2% OINT 22 GM NS SCH (10:24)
[2019-07-04] MEDS: ASPIRIN EC 81 MG TAB PO SCH (10:24)
[2019-07-04] MEDS ORDERED: LEVALBUTEROL 0.63 MG/3 ML NEBU IH PRN (10:26)
[2019-07-04] MEDS ORDERED: IPRATROPIUM 0.02% NEBU 2.5 ML IH SCH (14:00)
[2019-07-04] MEDS ORDERED: LEVALBUTEROL 0.63 MG/3 ML NEBU IH SCH (14:00)
--- NOTE | 2019-07-04 16:02 | Discharge Summary ---
Providers - Providers Date of Admission: 07/04/19 12:44 Date of discharge: 07/04/19 Attending physician: FAIZAN MARINA 07/01/19 21:28 Consult to Physician [CONS] Stat Comment: Consulting Provider: PILAR WHITTEN Physician Instructions: Reason For Exam: Chest pain Primary care physician: [employer] Hospitalization Condition: Stable Disposition: DC-01 TO HOME OR SELFCARE Time spent for discharge: 32 min Core Measure Documentation - Palliative Care Palliative Care/ Comfort Measures: Not Applicable Exam - Constitutional Vitals: Temp Pulse Resp BP Pulse Ox 98.3 F 101 H 20 136/80 98 07/04/19 07:38 07/04/19 09:00 07/04/19 14:00 07/04/19 07:38 07/04/19 10:00 General appearance: Present: no acute distress, well-nourished - EENT Eyes: Present: PERRL, EOM intact - Neck Neck: Present: supple, normal ROM - Respiratory Respiratory effort: normal Respiratory: bilateral: diminished, negative: rales, rhonchi, wheezing - Cardiovascular Rhythm: regular Heart Sounds: Present: S1 & S2 - Extremities Extremities: no ischemia, No edema - Abdominal General gastrointestinal: Present: soft, non-tender, non-distended, normal bowel sounds - Integumentary Integumentary: Present: clear, warm - Musculoskeletal Musculoskeletal: strength equal bilaterally - Psychiatric Psychiatric: appropriate mood/affect, cooperative - Neurologic Neurologic: moves all extremities Plan Activity: advance as tolerated Diet: other (cardiac diet) Additional Instructions: Continue home oxygen as needed. Fall precautions. If you have severe shortness of breath or chest pain contact MD or go to emergency room. Advised to follow-up private psychiatrist in 1 to 2 weeks. Advised to follow private expeller operator in 1 to 2 weeks Follow up with: PRIMARY CAREMD [Primary Care Provider] - 3-5 Days EVE ROYAL MD [Staff Physician] - 14 Days MARK HAAS MD [Staff Physician] - 7 Days Prescriptions: Mupirocin [Bactroban 2% OINT] 1 applic NS BID #1 tube levETIRAcetam [Keppra TAB] 500 mg PO BID #60 tablet Prednisone [predniSONE 10 mg (6-Day Pack, 21 Tabs)] 10 mg PO .TAPER #1 tab.ds.pk
[2019-07-04] MEDS: LEVALBUTEROL 1.25 MG/3 ML NEB IH SCH ×2 (17:11→18:48)
== END 2019-07-04 18:07 | disposition home or self-care (01) | DRG 190 ==
LOC: ED 18:45 → 4A 22:44 → OBSVTOIN 07-04 12:44
PROVIDERS: ADMIT Internal Medicine; ATTEND Internal Medicine
DX: J44.1 Chronic obstructive pulmonary disease with (acute) exacerbation (principal); N17.0 Acute kidney failure with tubular necrosis; I20.0 Unstable angina; J96.10 Chronic respiratory failure, unspecified whether with hypoxia or hypercapnia; F11.20 Opioid dependence, uncomplicated; E11.9 Type 2 diabetes mellitus without complications; I11.0 Hypertensive heart disease with heart failure; R07.89 Other chest pain; I50.9 Heart failure, unspecified; M54.5 Low back pain; K21.9 Gastro-esophageal reflux disease without esophagitis; G89.29 Other chronic pain; I27.20 Pulmonary hypertension, unspecified; E78.5 Hyperlipidemia, unspecified; F41.9 Anxiety disorder, unspecified; M06.9 Rheumatoid arthritis, unspecified; Z82.49 Family history of ischemic heart disease and other diseases of the circulatory system; Z87.891 Personal history of nicotine dependence
CPT/HCPCS: 36415; 71045; 80048; 83690; 83880; 84484; 85025; 85610; 85730; 87641; 93005; 94640; 94644; 94760; G0378; J1650; J2270; J2405; J2920

== ENCOUNTER 2019-07-21 23:10 | Emergency (ER) | payer MEDICARE ==
[2019-07-21] MEDS ORDERED: MORPHINE 4 MG/1 ML INJ IV ONE (23:35)
[2019-07-21] MEDS ORDERED: ONDANSETRON 4 MG/2 ML INJ IV ONE (23:35)
--- NOTE | 2019-07-21 23:40 | Emergency Department Report ---
ED General Adult HPI - General Stated complaint: WEAKNESS JOINT PAIN Time Seen by Provider: 07/21/19 23:33 Source: patient, EMS - History of Present Illness Initial comments: Patient is 69 years old female with history of hypertension, COPD and congestive heart failure. Patient brought to the emergency room via EMS from home for evaluation of shortness of breath, cough, chills, nausea for the last 3 days. Patient also stating that she is having some muscle spasm in both sides. Patient also stated that she is having an anxiety. Patient denied any fever or chills. Patient also denied any contact with someone with COVID-19. - Related Data Previous Rx's Medication Instructions Recorded Last Taken Type Acetaminophen [Acetaminophen TAB] 1,000 mg PO Q6H PRN tablet 10/13/18 06/26/19 13:10 Rx Budesonide [Pulmicort Respules] 0.5 mg IH Q12HRT #14 nebu 10/13/18 Unknown Rx DULoxetine [Cymbalta] 90 mg PO QDAY #90 capsule 10/13/18 Unknown Rx Ipratropium/Albuterol Sulfate 1 ampul IH BIDRT #30 ampul.neb 10/13/18 Unknown Rx [DUONEB *Not for PRN Use*] Potassium Chloride [K-Dur] 20 meq PO DAILY #30 tablet 10/13/18 06/26/19 13:09 Rx Torsemide [Demadex] 40 mg PO QDAY #60 tablet 10/13/18 06/26/19 13:09 Rx buPROPion XL [Wellbutrin XL] 150 mg PO QDAY #30 tablet 10/13/18 06/26/19 13:09 Rx cloNIDine-TTS PATCH [Catapres-Tts 0.2 mg TD Th #7 patch 10/13/18 Unknown Rx 0.2mg Patch] Aspirin EC [Halfprin EC] 81 mg PO QDAY #30 tablet. 06/26/19 Unknown Rx Pantoprazole [Protonix TAB] 40 mg PO QDAY #30 tablet 06/26/19 Unknown Rx oxyCODONE /ACETAMINOPHEN [Percocet 1 tab PO Q6HR PRN #10 tablet 06/26/19 Unknown Rx 5/325 mg] ALBUTEROL NEB's [Proventil 0.083% 2.5 mg IH Q4HRT PRN #30 nebu 06/27/19 Unknown Rx NEBS] Azithromycin [Zithromax TAB] 500 mg PO QDAY #4 tablet 06/27/19 Unknown Rx Ondansetron (Nf) [Zofran TAB] 8 mg PO Q8HR PRN #30 tablet 06/27/19 Unknown Rx Melatonin [Melatonin 10MG RAPDIS] 10 mg PO QHS PRN #14 tab.rapdis 06/28/19 Unknown Rx Mupirocin [Bactroban 2% OINT] 1 applic NS BID #1 tube 07/04/19 Unknown Rx Prednisone [predniSONE 10 mg 10 mg PO .TAPER #1 tab.ds.pk 07/04/19 Unknown Rx (6-Day Pack, 21 Tabs)] levETIRAcetam [Keppra TAB] 500 mg PO BID #60 tablet 07/04/19 Unknown Rx Allergies Allergy/AdvReac Type Severity Reaction Status Date / Time zolpidem [From Ambien] Allergy Unknown Verified 07/22/19 02:56 ED Review of Systems ROS: Stated complaint: WEAKNESS JOINT PAIN Other details as noted in HPI Comment: All other systems reviewed and negative Constitutional: chills. denies: fever Respiratory: cough, shortness of breath, SOB with exertion, SOB at rest, wheezing Cardiovascular: denies: chest pain, palpitations Gastrointestinal: abdominal pain, nausea. denies: diarrhea, constipation, hematemesis, melena, hematochezia Musculoskeletal: denies: back pain Neurological: weakness (Generalized.). denies: headache, numbness, paresthesias, confusion, abnormal gait ED Past Medical Hx - Past Medical History Hx Hypertension: Yes Hx Heart Attack/AMI: No Hx Congestive Heart Failure: Yes Hx Deep Vein Thrombosis: No Hx Pulmonary Embolism: No Hx GERD: Yes Hx Renal Disease: No Hx Arthritis: Yes Hx Seizures: No Hx Asthma: No Hx COPD: Yes Hx Tuberculosis: No Hx Dementia: No Additional medical history: chronic back pain - Surgical History Hx Coronary Stent: No Hx Pacemaker: No Hx Internal Defibrillator: No Hx Cholecystectomy: No Hx Appendectomy: No Additional Surgical History: hernia repair and lower back/ cycst removal - Social History Smoking Status: Former Smoker - Medications Home Medications: Home Medications Medication Instructions Recorded Confirmed Last Taken Type Acetaminophen [Acetaminophen TAB] 1,000 mg PO Q6H PRN tablet 10/13/18 06/26/19 06/26/19 13:10 Rx Budesonide [Pulmicort Respules] 0.5 mg IH Q12HRT #14 nebu 10/13/18 06/26/19 Unknown Rx DULoxetine [Cymbalta] 90 mg PO QDAY #90 capsule 10/13/18 06/26/19 Unknown Rx Ipratropium/Albuterol Sulfate 1 ampul IH BIDRT #30 ampul.neb 10/13/18 06/26/19 Unknown Rx [DUONEB *Not for PRN Use*] Potassium Chloride [K-Dur] 20 meq PO DAILY #30 tablet 10/13/18 06/26/19 06/26/19 13:09 Rx Torsemide [Demadex] 40 mg PO QDAY #60 tablet 10/13/18 06/26/19 06/26/19 13:09 Rx buPROPion XL [Wellbutrin XL] 150 mg PO QDAY #30 tablet 10/13/18 06/26/19 06/26/19 13:09 Rx cloNIDine-TTS PATCH [Catapres-Tts 0.2 mg TD Th #7 patch 10/13/18 06/26/19 Unknown Rx 0.2mg Patch] Aspirin EC [Halfprin EC] 81 mg PO QDAY #30 tablet.dr 06/26/19 Unknown Rx Pantoprazole [Protonix TAB] 40 mg PO QDAY #30 tablet 06/26/19 Unknown Rx oxyCODONE /ACETAMINOPHEN [Percocet 1 tab PO Q6HR PRN #10 tablet 06/26/19 Unknown Rx 5/325 mg] ALBUTEROL NEB's [Proventil 0.083% 2.5 mg IH Q4HRT PRN #30 nebu 06/27/19 Unknown Rx NEBS] Azithromycin [Zithromax TAB] 500 mg PO QDAY #4 tablet 06/27/19 Unknown Rx Ondansetron (Nf) [Zofran TAB] 8 mg PO Q8HR PRN #30 tablet 06/27/19 Unknown Rx Melatonin [Melatonin 10MG RAPDIS] 10 mg PO QHS PRN #14 tab.rapdis 06/28/19 Unknown Rx Mupirocin [Bactroban 2% OINT] 1 applic NS BID #1 tube 07/04/19 Unknown Rx Prednisone [predniSONE 10 mg 10 mg PO .TAPER #1 tab.ds.pk 07/04/19 Unknown Rx (6-Day Pack, 21 Tabs)] levETIRAcetam [Keppra TAB] 500 mg PO BID #60 tablet 07/04/19 Unknown Rx ED Physical Exam - General General appearance: alert, in no apparent distress - Head Head exam: Present: atraumatic, normocephalic, normal inspection - Eye Eye exam: Present: normal appearance - ENT ENT exam: Present: normal exam, normal orophraynx, mucous membranes moist - Neck Neck exam: Present: normal inspection, full ROM. Absent: tenderness, meningismus, lymphadenopathy, thyromegaly - Respiratory Respiratory exam: Present: normal lung sounds bilaterally - Cardiovascular Cardiovascular Exam: Present: regular rate, normal rhythm, normal heart sounds - GI/Abdominal GI/Abdominal exam: Present: soft, normal bowel sounds. Absent: distended, tende rness, guarding, rebound, rigid, organomegaly, mass, bruit, pulsatile mass, hernia - Extremities Exam Extremities exam: Present: normal inspection, full ROM, normal capillary refill. Absent: tenderness, pedal edema, calf tenderness - Back Exam Back exam: Present: normal inspection, full ROM. Absent: CVA tenderness (R), CVA tenderness (L) - Neurological Exam Neurological exam: Present: alert, oriented X3, CN II-XII intact - Psychiatric Psychiatric exam: Present: normal mood - Skin Skin exam: Present: warm, intact, normal color ED Course Vital Signs 07/21/19 07/21/19 07/22/19 23:20 23:45 00:00 Temperature 99.1 F Pulse Rate 87 76 75 Respiratory 14 12 16 Rate Blood Pressure 158/71 145/77 156/75 O2 Sat by Pulse 100 100 99 Oximetry 07/22/19 07/22/19 07/22/19 00:15 00:31 00:45 Temperature Pulse Rate 73 73 77 Respiratory 16 13 15 Rate Blood Pressure 145/77 145/77 145/77 O2 Sat by Pulse 99 99 100 Oximetry 07/22/19 07/22/19 01:15 02:41 Temperature Pulse Rate Respiratory 16 16 Rate Blood Pressure O2 Sat by Pulse Oximetry ED Medical Decision Making - Lab Data Result diagrams: 07/22/19 00:00 07/22/19 00:00 - EKG Data -: EKG Interpreted by Or EKG shows normal: sinus rhythm Rate: normal - EKG Data Interpretation: no acute changes - Radiology Data Radiology results: report reviewed - Medical Decision Making Patient is 69 years old female with history of hypertension, COPD and congestive heart failure. Patient brought to the emergency room via EMS from home for evaluation of shortness of breath, cough, chills, nausea for the last 3 days. Patient also stating that she is having some muscle spasm in both sides. Patient also stated that she is having an anxiety. Patient denied any fever or chills. Patient also denied any contact with someone with COVID-19. Patient received morphine and Zofran. No nausea or vomiting observed. Patient stated that she feels better. Labs reviewed and is unremarkable. EKG is negative for acute finding. Chest x-ray is unremarkable. Patient given pres cription for Zofran and tramadol and advised to follow-up with her primary care physician in the next 2 to 3 days. Patient also advised to return to the ER if she develop any new symptoms or if her symptoms get worse. Critical care attestation.: If time is entered above; I have spent that time in minutes in the direct care of this critically ill patient, excluding procedure time. ED Disposition Clinical Impression: Shortness of breath, Nausea, Acute anxiety Disposition: DC-01 TO HOME OR SELFCARE Is pt being admited?: No Condition: Stable Instructions: Dyspnea (ED), Acute Nausea and Vomiting (ED) Referrals: PRIMARY CARE, [Primary Care Provider] - 3-5 Days
--- NOTE | 2019-07-22 00:03 | XRay Report ---
CHEST 1 VIEW, 07/21/2019 11:41 PM CLINICAL INFORMATION/INDICATION: Shortness of breath COMPARISON: Chest radiograph, 07/01/2019 FINDINGS: SUPPORT DEVICES: None. HEART: The cardiac silhouette is normal in size. LUNGS/PLEURA: The lungs are moderately hyperinflated but appear clear of focal airspace disease or si gnificant pleural effusion. ADDITIONAL FINDINGS: No additional acute findings. IMPRESSION: 1. Moderate pulmonary hyperinflation without evidence of acute cardiopulmonary process. Signer Name: Ayaka Morrison MD Signed: 07/21/2019 11:59 PM Workstation Name: [id number]
[2019-07-22 00:16] LABS: Basophils % (Auto) 0.2 % (0.0-1.8); Eosinophils # (Auto) 0.2 K/mm3 (0.0-0.4); Eosinophils % (Auto) 2.6 % (0.0-4.3); Hematocrit 35.3 % (30.3-42.9); Hemoglobin 11.4 gm/dl (10.1-14.3); Lymphocytes # (Auto) 0.9 K/mm3 (1.2-5.4); Lymphocytes % (Auto) 15.1 % (13.4-35.0); Mean Corpuscular HGB Conc 32 % (30-34); Mean Corpuscular Volume 92 fl (79-97); Monocytes # (Auto) 0.5 K/mm3 (0.0-0.8); Platelet Count 258 K/mm3 (140-440); Red Blood Count 3.85 M/mm3 (3.65-5.03); Red Cell Distribution Width 17.5 % (13.2-15.2)
[2019-07-22 00:25] LABS: INR 0.99 (0.87-1.13)
[2019-07-22 00:26] LABS: Partial Thromboplastin Time 27.1 Sec. (24.2-36.6)
[2019-07-22 00:38] LABS: BUN/Creatinine Ratio 10; Blood Urea Nitrogen 8 mg/dL (7-17); Calcium 9.5 mg/dL (8.4-10.2); Hemolysis Index 5
[2019-07-22 00:42] LABS: Alanine Aminotransferase 13 units/L (7-56); Albumin 4.2 g/dL (3.9-5)
[2019-07-22] MEDS ORDERED: POTASSIUM CHLORIDE ER 20 MEQ TAB PO ONE (00:50)
[2019-07-22 00:51] LABS: Bilirubin,Direct < 0.2 mg/dL (0-0.2)
[2019-07-22] MEDS ORDERED: MORPHINE 4 MG/1 ML INJ IV ONE (02:34)
[2019-07-22] MEDS ORDERED: LORazepam 2 MG/ML VIAL IV ONE (02:35)
[2019-07-22] MEDS ORDERED: LORazepam 2 MG/ML VIAL ONE (02:37)
[2019-07-22] MEDS ORDERED: MORPHINE 2 MG/1 ML INJ ONE (02:37)
[2019-07-22 03:26] LABS: Bacteria,Urine 1+ /HPF (Negative); Bilirubin,Urine NEG (Negative); Blood,Urine NEG (Negative); Color,Urine Yellow (Yellow); Hyaline Casts,Urine 10 /LPF; Mucus,Urine FEW /HPF; Urobilinogen,Urine < 2.0 mg/dL (<2.0)
[2019-07-22 06:36] VITALS: BP 128/77
== END 2019-07-22 07:04 | disposition home or self-care (01) ==
LOC: ED 23:10
DX: F41.9 Anxiety disorder, unspecified (principal); R11.10 Vomiting, unspecified; R06.02 Shortness of breath; I11.0 Hypertensive heart disease with heart failure; I50.9 Heart failure, unspecified; M19.90 Unspecified osteoarthritis, unspecified site; J44.9 Chronic obstructive pulmonary disease, unspecified; K21.9 Gastro-esophageal reflux disease without esophagitis; Z79.899 Other long term (current) drug therapy; Z88.8 Allergy status to other drugs, medicaments and biological substances; Z87.891 Personal history of nicotine dependence; Z98.890 Other specified postprocedural states
CPT/HCPCS: 36415; 71045; 80048; 80076; 81001; 83690; 83735; 83880; 84484; 85025; 85610; 85730; 87040; 93005; 96374; 96375; 96376; 99285; J2060; J2270; J2405

== ENCOUNTER 2019-07-24 20:02 | Emergency (ER) | payer MEDICARE ==
[2019-07-24] MEDS ORDERED: ACETAMINOPHEN 325 MG TAB PO ONE (20:27)
[2019-07-24] MEDS ORDERED: ALPRAZolam 0.5 MG TAB PO ONE (20:27)
[2019-07-24] MEDS ORDERED: ALBUTEROL 8.5 GM INHALATION IH ONE (20:27)
--- NOTE | 2019-07-24 20:34 | Emergency Department Report ---
ED General Adult HPI - General Chief complaint: Dyspnea/Respdistress Stated complaint: SOB PUI?: Yes Time Seen by Provider: 07/24/19 20:09 Source: patient, EMS ( EMS documentation not available at time of chart dictation ), RN notes reviewed, old records reviewed Mode of arrival: Stretcher Limitations: Physical Limitation - History of Present Illness Initial comments: The patient is a 69-year-old female. She has numerous medical comorbidities, including hypertension, CHF, COPD, on home oxygen, anxiety, rheumatoid arthritis, multiple evaluations at this hospital for chest pain. She recently had a negative nuclear stress test. She was also recently seen by our cardiology team, who recommended no additional ischemic work-up. The patient presents to the ER today with multiple complaints. Her first complaint is nontraumatic subjective pain and swelling in her right wrist, right knee, and right shoulder. There is no fever. There are no chills. There is no trauma. Pain is throbbing, increases with palpation and range of motion, and it decreases with rest. It does not radiate anywhere. Her next complaint is that her home oxygen broke. She states her primary care doctor and naturalization examiner are not able to get her outpatient oxygen fixed and repaired/replaced in a timely fashion. Her next complaint is anxiety. She states Xanax typically improves this. Her next complaint is cough, shortness of breath, which is chronic. On review of systems, has chronic chest wall tightness, and also endorses loss of taste for the past week. For the entire history and physical examination, I had on complete personal protective equipment -: Gradual, Sudden Location: back, right, upper extremity, lower extremity Quality: other Consistency: other Improves with: other Worsens with: other Associated Symptoms: other - Related Data Previous Rx's Medication Instructions Recorded Last Taken Type Acetaminophen [Acetaminophen TAB] 1,000 mg PO Q6H PRN tablet 10/13/18 06/26/19 13:10 Rx Budesonide [Pulmicort Respules] 0.5 mg IH Q12HRT #14 nebu 10/13/18 Unknown Rx DULoxetine [Cymbalta] 90 mg PO QDAY #90 capsule 10/13/18 Unknown Rx Ipratropium/Albuterol Sulfate 1 ampul IH BIDRT #30 ampul.neb 10/13/18 Unknown Rx [DUONEB *Not for PRN Use*] Potassium Chloride [K-Dur] 20 meq PO DAILY #30 tablet 10/13/18 06/26/19 13:09 Rx Torsemide [Demadex] 40 mg PO QDAY #60 tablet 10/13/18 06/26/19 13:09 Rx buPROPion XL [Wellbutrin XL] 150 mg PO QDAY #30 tablet 10/13/18 06/26/19 13:09 Rx cloNIDine-TTS PATCH [Catapres-Tts 0.2 mg TD Th #7 patch 10/13/18 Unknown Rx 0.2mg Patch] Aspirin EC [Halfprin EC] 81 mg PO QDAY #30 tablet.dr 06/26/19 Unknown Rx Pantoprazole [Protonix TAB] 40 mg PO QDAY #30 tablet 06/26/19 Unknown Rx oxyCODONE /ACETAMINOPHEN [Percocet 1 tab PO Q6HR PRN #10 tablet 06/26/19 Unknown Rx 5/325 mg] ALBUTEROL NEB's [Proventil 0.083% 2.5 mg IH Q4HRT PRN #30 nebu 06/27/19 Unknown Rx NEBS] Azithromycin [Zithromax TAB] 500 mg PO QDAY #4 tablet 06/27/19 Unknown Rx Ondansetron (Nf) [Zofran TAB] 8 mg PO Q8HR PRN #30 tablet 06/27/19 Unknown Rx Melatonin [Melatonin 10MG RAPDIS] 10 mg PO QHS PRN #14 tab.rapdis 06/28/19 Unknown Rx Mupirocin [Bactroban 2% OINT] 1 applic NS BID #1 tube 07/04/19 Unknown Rx Prednisone [predniSONE 10 mg 10 mg PO .TAPER #1 tab.ds.pk 07/04/19 Unknown Rx (6-Day Pack, 21 Tabs)] levETIRAcetam [Keppra TAB] 500 mg PO BID #60 tablet 07/04/19 Unknown Rx Ondansetron [Zofran Odt] 4 mg PO Q8HR PRN #14 tab.rapdis 07/22/19 Unknown Rx traMADoL [Ultram 50 MG tab] 50 mg PO Q4HR PRN #14 tablet 07/22/19 Unknown Rx Allergies Allergy/AdvReac Type Severity Reaction Status Date / Time zolpidem [From Ambien] Allergy Unknown Verified 07/22/19 02:56 ED Review of Systems ROS: Stated complaint: SOB Other details as noted in HPI Constitutional: malaise, weakness. denies: fever Eyes: denies: eye discharge ENT: congestion. denies: epistaxis Respiratory: cough, shortness of breath, wheezing Cardiovascular: denies: syncope Gastrointestinal: denies: abdominal pain Genitourinary: denies: dysuria Musculoskeletal: joint swelling, arthralgia, myalgia Skin: denies: lesions Neurological: weakness Psychiatric: anxiety ED Past Medical Hx - Past Medical History Hx Hypertension: Yes Hx Heart Attack/AMI: No Hx Congestive Heart Failure: Yes Hx Deep Vein Thrombosis: No Hx Pulmonary Embolism: No Hx GERD: Yes Hx Renal Disease: No Hx Arthritis: Yes Hx Seizures: No Hx Asthma: No Hx COPD: Yes Hx Tuberculosis: No Hx Dementia: No Additional medical history: chronic back pain - Surgical History Hx Coronary Stent: No Hx Pacemaker: No Hx Internal Defibrillator: No Hx Cholecystectomy: No Hx Appendectomy: No Additional Surgical History: hernia repair and lower back/ cycst removal - Social History Smoking Status: Former Smoker Substance Use Type: None - Medications Home Medications: Home Medications Medication Instructions Recorded Confirmed Last Taken Type Acetaminophen [Acetaminophen TAB] 1,000 mg PO Q6H PRN tablet 10/13/18 06/26/19 06/26/19 13:10 Rx Budesonide [Pulmicort Respules] 0.5 mg IH Q12HRT #14 nebu 10/13/18 06/26/19 Unknown Rx DULoxetine [Cymbalta] 90 mg PO QDAY #90 capsule 10/13/18 06/26/19 Unknown Rx Ipratropium/Albuterol Sulfate 1 ampul IH BIDRT #30 ampul.neb 10/13/18 06/26/19 Unknown Rx [DUONEB *Not for PRN Use*] Potassium Chloride [K-Dur] 20 meq PO DAILY #30 tablet 10/13/18 06/26/19 06/26/19 13:09 Rx Torsemide [Demadex] 40 mg PO QDAY #60 tablet 10/13/18 06/26/19 06/26/19 13:09 Rx buPROPion XL [Wellbutrin XL] 150 mg PO QDAY #30 tablet 10/13/18 06/26/19 05/04/15 13:09 Rx cloNIDine-TTS PATCH [Catapres-Tts 0.2 mg TD Th #7 patch 10/13/18 06/26/19 Unknown Rx 0.2mg Patch] Aspirin EC [Halfprin EC] 81 mg PO QDAY #30 tablet.dr 06/26/19 Unknown Rx Pantoprazole [Protonix TAB] 40 mg PO QDAY #30 tablet 06/26/19 Unknown Rx oxyCODONE /ACETAMINOPHEN [Percocet 1 tab PO Q6HR PRN #10 tablet 06/26/19 Unknown Rx 5/325 mg] ALBUTEROL NEB's [Proventil 0.083% 2.5 mg IH Q4HRT PRN #30 nebu 06/27/19 Unknown Rx NEBS] Azithromycin [Zithromax TAB] 500 mg PO QDAY #4 tablet 06/27/19 Unknown Rx Ondansetron (Nf) [Zofran TAB] 8 mg PO Q8HR PRN #30 tablet 06/27/19 Unknown Rx Melatonin [Melatonin 10MG RAPDIS] 10 mg PO QHS PRN #14 tab.rapdis 06/28/19 Unknown Rx Mupirocin [Bactroban 2% OINT] 1 applic NS BID #1 tube 07/04/19 Unknown Rx Prednisone [predniSONE 10 mg 10 mg PO .TAPER #1 tab.ds.pk 07/04/19 Unknown Rx (6-Day Pack, 21 Tabs)] levETIRAcetam [Keppra TAB] 500 mg PO BID #60 tablet 07/04/19 Unknown Rx Ondansetron [Zofran Odt] 4 mg PO Q8HR PRN #14 tab.rapdis 07/22/19 Unknown Rx traMADoL [Ultram 50 MG tab] 50 mg PO Q4HR PRN #14 tablet 07/22/19 Unknown Rx ED Physical Exam - General Limitations: Physical Limitation General appearance: alert, anxious, obese - Head Head exam: Present: atraumatic, normocephalic - Eye Eye exam: Present: normal appearance, EOMI. Absent: nystagmus - ENT ENT exam: Present: normal exam, normal orophraynx, mucous membranes moist, normal external ear exam - Neck Neck exam: Present: normal inspection, full ROM. Absent: tenderness, m eningismus - Respiratory Respiratory exam: Present: rhonchi (Faint rhonchi noted). Absent: respiratory distress, rales, stridor - Cardiovascular Cardiovascular Exam: Present: regular rate, normal rhythm, normal heart sounds. Absent: bradycardia, tachycardia, irregular rhythm, systolic murmur, diastolic murmur, rubs, gallop - GI/Abdominal GI/Abdominal exam: Present: soft, normal bowel sounds. Absent: distended, tenderness, guarding, rebound, rigid, pulsatile mass - Extremities Exam Extremities exam: Present: normal inspection (Full active and passive range of motion of the right shoulder, right elbow, right wrist, and right knee. There is minimal diffuse arthritic tenderness.), full ROM, pedal edema, other (2+ pulses noted in the bilateral upper and lower extremities. There is no palpable cord. negative Homans sign. Muscular compartments are soft. The pelvis is stable.). Absent: calf tenderness - Back Exam Back exam: Present: normal inspection. Absent: tenderness, CVA tenderness (R), CVA tenderness (L), paraspinal tenderness, vertebral tenderness - Neurological Exam Neurological exam: Present: alert, other (No facial droop. Tongue midline. Extraocular movements intact bilaterally. Facial sensation intact to light touch in V1, V2, V3 distribution bilaterally. 5 and a 5 strength in 4 extremities. Sensation intact to light touch in 4 extremities.). Absent: motor sensory deficit - Psychiatric Psychiatric exam: Present: anxious - Skin Skin exam: Present: warm, dry, intact, normal color. Absent: rash ED Course Vital Signs 07/24/19 07/24/19 07/24/19 20:14 20:23 20:30 Temperature 98.6 F Pulse Rate 107 H 88 Pulse Rate [ Anterior Bilateral Throughout] Respiratory 24 24 18 Rate Respiratory Rate [Anterior Bilateral Throughout] Blood Pressure 157/86 154/82 Blood Pressure 157/86 [Left] O2 Sat by Pulse 93 93 87 Oximetry 07/24/19 07/24/19 07/24/19 21:00 21:30 22:00 Temperature Pulse Rate 84 84 89 Pulse Rate [ Anterior Bilateral Throughout] Respiratory 20 15 23 Rate Respiratory Rate [Anterior Bilateral Throughout] Blood Pressure 157/86 150/79 134/67 Blood Pressure [Left] O2 Sat by Pulse 91 94 98 Oximetry 07/24/19 07/24/19 07/24/19 22:30 22:42 23:00 Temperature Pulse Rate 94 H 107 H Pulse Rate [ Anterior Bilateral Throughout] Respiratory 19 19 Rate Respiratory Rate [Anterior Bilateral Throughout] Blood Pressure 134/67 157/86 142/77 Blood Pressure [Left] O2 Sat by Pulse 96 99 97 Oximetry 07/24/19 07/25/19 07/25/19 23:30 00:30 01:00 Temperature Pulse Rate Pulse Rate [ Anterior Bilateral Throughout] Respiratory Rate Respiratory Rate [Anterior Bilateral Throughout] Blood Pressure 133/64 125/62 123/69 Blood Pressure [Left] O2 Sat by Pulse 96 94 Oximetry 07/25/19 07/25/19 07/25/19 01:30 02:00 02:30 Temperature Pulse Rate Pulse Rate [ Anterior Bilateral Throughout] Respiratory Rate Respiratory Rate [Anterior Bilateral Throughout] Blood Pressure 129/73 122/65 129/73 Blood Pressure [Left] O2 Sat by Pulse 98 99 99 Oximetry 07/25/19 07/25/19 07/25/19 03:00 05:30 06:00 Temperature Pulse Rate 78 Pulse Rate [ Anterior Bilateral Throughout] Respiratory 20 Rate Respiratory Rate [Anterior Bilateral Throughout] Blood Pressure 126/85 126/85 Blood Pressure [Left] O2 Sat by Pulse 99 99 99 Oximetry 07/25/19 07/25/19 07/25/19 07:00 08:00 08:16 Temperature Pulse Rate 72 68 Pulse Rate [ Anterior Bilateral Throughout] Respiratory 15 13 Rate Respiratory Rate [Anterior Bilateral Throughout] Blood Pressure 146/74 146/74 Blood Pressure [Left] O2 Sat by Pulse 100 98 99 Oximetry 07/25/19 07/25/19 07/25/19 08:30 08:46 09:00 Temperature Pulse Rate 65 73 68 Pulse Rate [ Anterior Bilateral Throughout] Respiratory 10 L 12 14 Rate Respiratory Rate [Anterior Bilateral Throughout] Blood Pressure 146/74 108/58 108/58 Blood Pressure [Left] O2 Sat by Pulse 98 100 100 Oximetry 07/25/19 07/25/19 07/25/19 09:16 09:30 09:46 Temperature Pulse Rate 72 70 68 Pulse Rate [ Anterior Bilateral Throughout] Respiratory 15 11 L 11 L Rate Respiratory Rate [Anterior Bilateral Throughout] Blood Pressure 127/75 127/75 106/56 Blood Pressure [Left] O2 Sat by Pulse 100 98 97 Oximetry 07/25/19 07/25/19 07/25/19 10:00 11:00 12:00 Temperature Pulse Rate 90 75 73 Pulse Rate [ Anterior Bilateral Throughout] Respiratory 17 13 15 Rate Respiratory Rate [Anterior Bilateral Throughout] Blood Pressure 143/79 116/60 132/63 Blood Pressure [Left] O2 Sat by Pulse 92 95 98 Oximetry 07/25/19 07/25/19 07/25/19 13:00 14:00 15:01 Temperature Pulse Rate 68 71 97 H Pulse Rate [ Anterior Bilateral Throughout] Respiratory 14 12 22 Rate Respiratory Rate [Anterior Bilateral Throughout] Blood Pressure 114/65 110/57 159/97 Blood Pressure [Left] O2 Sat by Pulse 97 95 Oximetry 07/25/19 07/25/19 07/25/19 16:00 17:00 18:00 Temperature Pulse Rate 67 86 72 Pulse Rate [ Anterior Bilateral Throughout] Respiratory 13 13 12 Rate Respiratory Rate [Anterior Bilateral Throughout] Blood Pressure 112/57 168/98 129/72 Blood Pressure [Left] O2 Sat by Pulse 97 99 99 Oximetry 07/25/19 07/25/19 07/25/19 18:39 19:00 20:01 Temperature Pulse Rate 70 72 Pulse Rate [ Anterior Bilateral Throughout] Respiratory 12 11 L Rate Respiratory Rate [Anterior Bilateral Throughout] Blood Pressure 128/63 131/70 134/66 Blood Pressure [Left] O2 Sat by Pulse 99 98 99 Oximetry 07/25/19 07/25/19 07/25/19 21:01 22:00 23:00 Temperature Pulse Rate Pulse Rate [ Anterior Bilateral Throughout] Respiratory Rate Respiratory Rate [Anterior Bilateral Throughout] Blood Pressure 156/93 141/67 149/70 Blood Pressure [Left] O2 Sat by Pulse 93 100 Oximetry 07/26/19 07/26/19 07/26/19 00:00 01:00 02:00 Temperature Pulse Rate Pulse Rate [ Anterior Bilateral Throughout] Respiratory Rate Respiratory Rate [Anterior Bilateral Throughout] Blood Pressure 124/69 147/86 121/66 Blood Pressure [Left] O2 Sat by Pulse Oximetry 07/26/19 07/26/19 07/26/19 03:01 04:00 05:07 Temperature Pulse Rate Pulse Rate [ Anterior Bilateral Throughout] Respiratory Rate Respiratory Rate [Anterior Bilateral Throughout] Blood Pressure 119/71 127/77 127/77 Blood Pressure [Left] O2 Sat by Pulse 99 Oximetry 07/26/19 07/26/19 07/26/19 06:01 06:39 07:00 Temperature Pulse Rate Pulse Rate [ Anterior Bilateral Throughout] Respiratory Rate Respiratory Rate [Anterior Bilateral Throughout] Blood Pressure 139/66 138/76 110/60 Blood Pressure [Left] O2 Sat by Pulse 98 100 100 Oximetry 07/26/19 07/26/19 07/26/19 08:00 09:00 10:00 Temperature Pulse Rate Pulse Rate [ Anterior Bilateral Throughout] Respiratory Rate Respiratory Rate [Anterior Bilateral Throughout] Blood Pressure 128/78 128/65 104/63 Blood Pressure [Left] O2 Sat by Pulse 100 100 98 Oximetry 07/26/19 07/26/19 07/26/19 11:00 12:00 12:31 Temperature Pulse Rate 89 Pulse Rate [ Anterior Bilateral Throughout] Respiratory 16 Rate Respiratory Rate [Anterior Bilateral Throughout] Blood Pressure 101/74 98/64 Blood Pressure 138/57 [Left] O2 Sat by Pulse 96 98 98 Oximetry 07/26/19 07/26/19 07/26/19 13:00 14:00 15:00 Temperature Pulse Rate Pulse Rate [ Anterior Bilateral Throughout] Respiratory Rate Respiratory Rate [Anterior Bilateral Throughout] Blood Pressure 124/77 128/84 109/59 Blood Pressure [Left] O2 Sat by Pulse 98 100 99 Oximetry 07/26/19 07/26/19 07/26/19 16:00 17:00 18:01 Temperature Pulse Rate Pulse Rate [ Anterior Bilateral Throughout] Respiratory Rate Respiratory Rate [Anterior Bilateral Throughout] Blood Pressure 131/68 126/69 150/94 Blood Pressure [Left] O2 Sat by Pulse 97 99 93 Oximetry 07/26/19 07/26/19 07/26/19 19:00 20:00 21:00 Temperature Pulse Rate 78 Pulse Rate [ Anterior Bilateral Throughout] Respiratory 16 Rate Respiratory Rate [Anterior Bilateral Throughout] Blood Pressure 104/54 141/83 122/65 Blood Pressure 182/74 [Left] O2 Sat by Pulse 98 99 99 Oximetry 07/26/19 07/26/19 07/26/19 22:01 23:00 23:19 Temperature Pulse Rate Pulse Rate [ Anterior Bilateral Throughout] Respiratory 28 H Rate Respiratory Rate [Anterior Bilateral Throughout] Blood Pressure 134/65 135/70 Blood Pressure [Left] O2 Sat by Pulse 99 Oximetry 07/27/19 07/27/19 07/27/19 00:01 01:01 02:00 Temperature Pulse Rate 84 91 H 86 Pulse Rate [ Anterior Bilateral Throughout] Respiratory 22 10 L 14 Rate Respiratory Rate [Anterior Bilateral Throughout] Blood Pressure 139/68 131/83 132/64 Blood Pressure [Left] O2 Sat by Pulse 94 89 95 Oximetry 07/27/19 07/27/19 07/27/19 03:00 04:00 05:00 Temperature Pulse Rate Pulse Rate [ Anterior Bilateral Throughout] Respiratory Rate Respiratory Rate [Anterior Bilateral Throughout] Blood Pressure 122/68 112/56 117/61 Blood Pressure [Left] O2 Sat by Pulse Oximetry 07/27/19 07/27/19 07/27/19 06:00 07:00 08:01 Temperature Pulse Rate Pulse Rate [ Anterior Bilateral Throughout] Respiratory Rate Respiratory Rate [Anterior Bilateral Throughout] Blood Pressure 133/67 131/73 107/54 Blood Pressure [Left] O2 Sat by Pulse Oximetry 07/27/19 07/27/19 07/27/19 08:30 09:00 10:00 Temperature 98.0 F Pulse Rate 80 Pulse Rate [ Anterior Bilateral Throughout] Respiratory 20 Rate Respiratory Rate [Anterior Bilateral Throughout] Blood Pressure 122/79 122/69 Blood Pressure 142/82 [Left] O2 Sat by Pulse 97 Oximetry 07/27/19 07/27/19 07/27/19 11:00 12:01 22:06 Temperature Pulse Rate Pulse Rate [ Anterior Bilateral Throughout] Respiratory 18 Rate Respiratory Rate [Anterior Bilateral Throughout] Blood Pressure 139/70 117/69 Blood Pressure [Left] O2 Sat by Pulse Oximetry 07/27/19 07/27/19 07/28/19 22:20 22:30 10:22 Temperature 97.8 F 98.7 F Pulse Rate 74 79 Pulse Rate [ 85 Anterior Bilateral Throughout] Respiratory 18 20 Rate Respiratory 18 Rate [Anterior Bilateral Throughout] Blood Pressure Blood Pressure 161/74 129/68 [Left] O2 Sat by Pulse 97 98 Oximetry - Reevaluation(s) Reevaluation #1: 07/24/19 20:34 Differential diagnosis, including but not limited to: Polyarthritis, COPD, pneumonia, congestive heart failure, costochondritis, anxiety, case management patient, suspected COVID-19 Assessment and plan: 69-year-old female who has presented to this department in hospital multiple times in the past few weeks, with exacerbation of her chronic complaints, including rheumatoid arthritis, anxiety, COPD, chest wall discomfort, shortness of breath, and now endorsing a complaint that her home oxygen, which she is dependent on, 24 hours a day, is broken, and she is not able to get it fixed/repaired/replaced in a timely fashion. She is placed on isolation precautions. Appropriate COVID labs have been ordered to screen the patient/were stratify for cytokine storm. We will treat her with acetaminophen, Xanax, and albuterol. A case management consultation is requested. 07/24/19 21:52 Reassessed. Laboratory studies unremarkable. Not suggestive of impending cytokine storm. Resting comfortably in stretcher, and in no acute distress. Home medications continued. Case management consultation pending. Patient does not meet criteria for hospitalization at this time. Assuming home oxygen can be set up by case management, we will consider the patient suitable for outpatient management Reevaluation #2: 07/24/19 23:48 Resting comfortably, in a stretcher, and in no acute distress. Reevaluation #3: 07/26/19 18:12 Patient has been in this department for days is case management is attempting to set her up with home oxygen. Her vital signs are unremarkable, and her s creening laboratory studies were also unremarkable. At this point in time, I do not suspect COVID, and will take the patient off of isolation. ED Medical Decision Making - Lab Data Result diagrams: 07/24/19 20:48 07/24/19 20:48 Vital Signs 07/24/19 07/24/19 20:14 20:23 Temperature 98.6 F Pulse Rate 107 H Respiratory 24 24 Rate Blood Pressure 157/86 Blood Pressure 157/86 [Left] O2 Sat by Pulse 93 93 Oximetry Vital Signs 07/24/19 07/24/19 07/24/19 20:14 20:23 20:30 Temperature 98.6 F Pulse Rate 107 H 88 Respiratory 24 24 18 Rate Blood Pressure 157/86 154/82 Blood Pressure 157/86 [Left] O2 Sat by Pulse 93 93 87 Oximetry 07/24/19 21:00 Temperature Pulse Rate 84 Respiratory 20 Rate Blood Pressure 157/86 Blood Pressure [Left] O2 Sat by Pulse 91 Oximetry Labs 07/24/19 07/24/19 07/24/19 20:48 20:48 20:48 WBC 6.1 RBC 3.45 L Hgb 10.4 Hct 31.5 MCV 91 MCH 30 MCHC 33 RDW 17.5 H Plt Count 260 Lymph % (Auto) 17.6 [place] % (Auto) 6.1 Eos % (Auto) 4.3 Baso % (Auto) 0.3 Lymph # 1.1 L [place] # 0.4 Eos # 0.3 Baso # 0.0 Seg Neutrophils % 71.7 H Seg Neutrophils # 4.4 PT 12.9 INR 0.96 D-Dimer 287.19 H Sodium Potassium Chloride Carbon Dioxide Anion Gap BUN Creatinine Estimated GFR BUN/Creatinine Ratio Glucose Calcium Magnesium 2.10 Ferritin Lactate Dehydrogenase Total Creatine Kinase 98 C-Reactive Protein NT-Pro-B Natriuret Pep 07/24/19 07/24/19 20:48 20:48 WBC RBC Hgb Hct MCV MCH MCHC RDW Plt Count Lymph % (Auto) [place] % (Auto) Eos % (Auto) Baso % (Auto) Lymph # [place] # Eos # Baso # Seg Neutrophils % Seg Neutrophils # PT INR D-Dimer Sodium 144 Potassium 4.5 D Chloride 102.8 Carbon Dioxide 29 Anion Gap 17 BUN 17 Creatinine 1.1 Estimated GFR 59 BUN/Creatinine Ratio 15 Glucose 100 Calcium 9.6 Magnesium Ferritin 61.5 Lactate Dehydrogenase 263 H Total Creatine Kinase C-Reactive Protein 0.10 NT-Pro-B Natriuret Pep 79.50 - EKG Data -: EKG Interpreted by Md EKG shows normal: sinus rhythm Rate: normal - EKG Data When compared to previous EKG there are: no significant change 07/24/19 20:33 Sinus rhythm, 98 bpm, normal axis, QTC is prolonged, atrial enlargement, Q waves noted in the inferior leads. This EKG is not a STEMI. Appears to be unchanged from prior EKG - Radiology Data Radiology results: pending, report reviewed, image reviewed Patient: FARSHAD RIVERA MR#: [id number] : 1950 Acct:[id number] Age/Sex: 69 / F ADM Date: 07/24/19 Loc: ED Attending Dr: Ordering Physician: DIEGO MONREAL MD Date of Service: 07/24/19 Procedure(s): XR chest 1V ap Accession Number(s): [id number] cc: DIEGO MONREAL MD Fluoro Time In Minutes: CHEST 1 VIEW INDICATION / CLINICAL INFORMATION: cough dyspnea. COMPARISON: 07/21/2019 FINDINGS: SUPPORT DEVICES: None. HEART / MEDIASTINUM: No significant abnormality. LUNGS / PLEURA: No significant pulmonary or pleural abnormality. No pneumothorax. Small band of atelectasis or scarring in the right midlung is incidentally noted. ADDITIONAL FINDINGS: No significant additional findings. IMPRESSION: 1. No significant change Signer Name: Bradley Chanel MD Signed: 07/24/2019 9:05 PM Workstation Name: [id number] Transcribed By: ISA Dictated By: Bradley Chanel MD Electronically Authenticated By: Bradley Chanel MD Signed Date/Time: 07/24/192104 DD/ 03 Critical Care Time: Yes Critical care time in (mins) excluding proc time.: 35 Critical care attestation.: If time is entered above; I have spent that time in minutes in the direct care of this critically ill patient, excluding procedure time. ED Disposition Clinical Impression: Anxiety, Atelectasis of right lung, COPD (chronic obstructive pulmonary disease), Rheumatoid arthritis, Chronic respiratory failure, Case management patient Disposition: DC-01 TO HOME OR SELFCARE Is pt being admited?: No Does the pt Need Aspirin: No Condition: Stable Instructions: Chronic Obstructive Pulmonary Disease (ED) Referrals: PRIMARY CARE, [Primary Care Provider] - 3-5 Days
[2019-07-24 21:01] LABS: Basophils % (Auto) 0.3 % (0.0-1.8); Eosinophils # (Auto) 0.3 K/mm3 (0.0-0.4); Eosinophils % (Auto) 4.3 % (0.0-4.3); Hematocrit 31.5 % (30.3-42.9); Hemoglobin 10.4 gm/dl (10.1-14.3); Lymphocytes # (Auto) 1.1 K/mm3 (1.2-5.4); Lymphocytes % (Auto) 17.6 % (13.4-35.0); Mean Corpuscular HGB Conc 33 % (30-34); Mean Corpuscular Volume 91 fl (79-97); Monocytes # (Auto) 0.4 K/mm3 (0.0-0.8); Monocytes % (Auto) 6.1 % (0.0-7.3); Platelet Count 260 K/mm3 (140-440); Red Blood Count 3.45 M/mm3 (3.65-5.03); Red Cell Distribution Width 17.5 % (13.2-15.2)
--- NOTE | 2019-07-24 21:09 | XRay Report ---
CHEST 1 VIEW INDICATION / CLINICAL INFORMATION: cough dyspnea. COMPARISON: 07/21/2019 FINDINGS: SUPPORT DEVICES: None. HEART / MEDIASTINUM: No significant abnormality. LUNGS / PLEURA: No significant pulmonary or pleural abnormality. No pneumothorax. Small band of atele ctasis or scarring in the right midlung is incidentally noted. ADDITIONAL FINDINGS: No significant additional findings. IMPRESSION: 1. No significant change Signer Name: Bradley Chanel MD Signed: 07/24/2019 9:05 PM Workstation Name: [id number]
[2019-07-24 21:10] LABS: INR 0.96 (0.87-1.13)
[2019-07-24 21:25] LABS: C-Reactive Protein 0.1 mg/dL (0.00-1.30); Calcium 9.6 mg/dL (8.4-10.2)
[2019-07-24] MEDS ORDERED: ALBUTEROL 2.5 MG/3 ML NEBU IH PRN (21:51)
[2019-07-24] MEDS ORDERED: MELATONIN 10 MG PO PRN (21:51)
[2019-07-24] MEDS ORDERED: ONDANSETRON 4 MG ODT TAB PO PRN (21:51)
[2019-07-25] MEDS: levETIRAcetam 500 MG TAB PO SCH ×2 (02:04→11:46)
[2019-07-25] MEDS: ACETAMINOPHEN 500 MG TAB PO PRN ×2 (02:33→09:06)
[2019-07-25] MEDS ORDERED: ALPRAZolam 0.5 MG TAB ONE (09:01)
[2019-07-25] MEDS: IPRATROPIUM/ALBUTEROL SULFATE 3 ML AMPUL.NEB IH SCH (09:08)
[2019-07-25] MEDS: BUDESONIDE 0.5 MG/2 ML NEBU IH SCH (09:08)
[2019-07-25] MEDS ORDERED: ALPRAZolam 0.5 MG TAB PO ONE (09:09)
[2019-07-25] MEDS: POTASSIUM CHLORIDE ER 20 MEQ TAB PO SCH (11:46)
[2019-07-25] MEDS: DULoxetine 30 MG CAP PO SCH (11:46)
[2019-07-25] MEDS: ASPIRIN EC 81 MG TAB PO SCH (11:46)
[2019-07-25] MEDS: TORSEMIDE 10 MG TAB PO SCH (11:46)
[2019-07-25] MEDS: buPROPion XL 150 MG TAB PO SCH (11:47)
[2019-07-25] MEDS: PANTOPRAZOLE 40 MG TAB PO SCH (11:47)
[2019-07-25] MEDS: HYDROcodone/ACETAMINOPHEN 10-325MG TAB PO PRN (20:20)
[2019-07-26] MEDS ORDERED: DOCUSATE SODIUM 100 MG CAP ONE (02:47)
[2019-07-26] MEDS: levETIRAcetam 500 MG TAB PO SCH ×2 (04:00→12:30)
[2019-07-26] MEDS: HYDROcodone/ACETAMINOPHEN 10-325MG TAB PO PRN ×3 (06:00→23:19)
[2019-07-26] MEDS: BUDESONIDE 0.5 MG/2 ML NEBU IH SCH (06:40)
[2019-07-26] MEDS: IPRATROPIUM/ALBUTEROL SULFATE 3 ML AMPUL.NEB IH SCH ×2 (06:40→23:19)
[2019-07-26] MEDS: TORSEMIDE 10 MG TAB PO SCH (12:11)
[2019-07-26] MEDS: ASPIRIN EC 81 MG TAB PO SCH (12:11)
[2019-07-26] MEDS: PANTOPRAZOLE 40 MG TAB PO SCH (12:12)
[2019-07-26] MEDS: buPROPion XL 150 MG TAB PO SCH (12:12)
[2019-07-26] MEDS: POTASSIUM CHLORIDE ER 20 MEQ TAB PO SCH (12:12)
[2019-07-26] MEDS: DULoxetine 30 MG CAP PO SCH (12:28)
[2019-07-26] MEDS: ACETAMINOPHEN 500 MG TAB PO PRN (20:40)
[2019-07-27] MEDS: levETIRAcetam 500 MG TAB PO SCH ×4 (02:33→22:30)
[2019-07-27] MEDS: MELATONIN 5 MG TAB PO PRN (02:33)
[2019-07-27] MEDS: DULoxetine 30 MG CAP PO SCH ×2 (10:42→11:37)
[2019-07-27] MEDS: PANTOPRAZOLE 40 MG TAB PO SCH (10:42)
[2019-07-27] MEDS: POTASSIUM CHLORIDE ER 20 MEQ TAB PO SCH (10:42)
[2019-07-27] MEDS: buPROPion XL 150 MG TAB PO SCH (11:37)
[2019-07-27] MEDS: ASPIRIN EC 81 MG TAB PO SCH (11:37)
[2019-07-27] MEDS: TORSEMIDE 10 MG TAB PO SCH (11:37)
[2019-07-27] MEDS: ACETAMINOPHEN 500 MG TAB PO PRN ×2 (11:41→22:06)
[2019-07-27] MEDS ORDERED: ALPRAZolam 0.25 MG TAB PO PRN (18:53)
[2019-07-27] MEDS: IPRATROPIUM/ALBUTEROL SULFATE 3 ML AMPUL.NEB IH SCH (22:20)
[2019-07-27] MEDS: BUDESONIDE 0.5 MG/2 ML NEBU IH SCH (22:20)
[2019-07-28] MEDS: BUDESONIDE 0.5 MG/2 ML NEBU IH SCH (04:56)
[2019-07-28] MEDS: IPRATROPIUM/ALBUTEROL SULFATE 3 ML AMPUL.NEB IH SCH (04:57)
[2019-07-28] MEDS: MELATONIN 5 MG TAB PO PRN (05:10)
[2019-07-28] MEDS: ACETAMINOPHEN 500 MG TAB PO PRN (05:11)
[2019-07-28] MEDS: TORSEMIDE 10 MG TAB PO SCH (10:22)
[2019-07-28] MEDS: buPROPion XL 150 MG TAB PO SCH (10:22)
[2019-07-28] MEDS: ASPIRIN EC 81 MG TAB PO SCH (10:22)
[2019-07-28] MEDS: POTASSIUM CHLORIDE ER 20 MEQ TAB PO SCH (10:23)
[2019-07-28] MEDS: PANTOPRAZOLE 40 MG TAB PO SCH (10:24)
[2019-07-28] MEDS: levETIRAcetam 500 MG TAB PO SCH (10:27)
[2019-07-28] MEDS: DULoxetine 30 MG CAP PO SCH (10:27)
[2019-07-28 12:34] VITALS: BP 129/68
[2019-07-29] MEDS ORDERED: cloNIDine TTS 0.2 MG/24 HR PATCH TD SCH (08:00)
== END 2019-07-28 12:30 | disposition home or self-care (01) ==
LOC: ED 20:02
DX: M06.89 Other specified rheumatoid arthritis, multiple sites (principal); J98.11 Atelectasis; J44.9 Chronic obstructive pulmonary disease, unspecified; J96.00 Acute respiratory failure, unspecified whether with hypoxia or hypercapnia; I11.0 Hypertensive heart disease with heart failure; I50.9 Heart failure, unspecified; K21.9 Gastro-esophageal reflux disease without esophagitis; Z87.891 Personal history of nicotine dependence; Z79.899 Other long term (current) drug therapy; Z88.6 Allergy status to analgesic agent; Z98.890 Other specified postprocedural states
CPT/HCPCS: 36415; 71045; 80048; 82550; 82728; 83615; 83735; 83880; 84145; 85025; 85379; 85610; 86140; 93005; 94640; 99285; J3246; 94644; Q0162

== ENCOUNTER 2019-08-23 09:45 | Inpatient (IN) | payer MEDICARE ==
[2019-08-23] MEDS ORDERED: ALPRAZolam 1 MG TAB PO ONE ×2 (11:09→22:00)
[2019-08-23] MEDS ORDERED: IPRATROPIUM 0.02% NEBU 2.5 ML IH ONE (11:09)
[2019-08-23] MEDS ORDERED: ALBUTEROL 2.5 MG/3 ML NEBU IH ONE (11:09)
[2019-08-23] MEDS ORDERED: dexAMETHasone 20 MG/5 ML VIAL IV ONE (11:10)
[2019-08-23] MEDS ORDERED: KETOROLAC 30 MG/1 ML INJ IV ONE (11:10)
[2019-08-23] MEDS ORDERED: ALPRAZolam 0.5 MG TAB PO ONE (11:11)
[2019-08-23] MEDS ORDERED: MAGNESIUM SULFATE 2 GM/50 ML BAG IV ONE (11:13)
--- NOTE | 2019-08-23 11:47 | Emergency Department Report ---
ED Shortness of Breath HPI - General Chief Complaint: Dyspnea/Respdistress Stated Complaint: COUGH/SOB Time Seen by Provider: 08/23/19 10:56 Source: patient Mode of arrival: Stretcher Limitations: No Limitations - History of Present Illness Initial Comments: 69-year-old female the past medical history of diastolic CHF, COPD on 3 L home oxygen, chronic respiratory failure, anxiety, seizure disorder, hypertension, rheumatoid arthritis, chronic pain presented to the hospital with complaints of shortness of breath since yesterday that increased overnight. Patient has had increased wheezing, cough productive of green sputum, shortness of breath and ch est tightness. Patient was seen recently at [facility] ED and just completed 5 days of prednisone the last dose yesterday. Patient is unsure of previous history of intubations. Patient has been here multiple times as well and has had a negative stress test in [place], echo showing EF of 60 to 65% in June and diagnosis of moderate to severe pulmonary hypertension. There is also noted patient has narcotic dependence for chronic pain. Patient also complains of ongoing right shoulder pain since fall 3 weeks ago and right hand and wrist swelling. Patient received albuterol 5 mg in route - Related Data Previous Rx's Medication Instructions Recorded Last Taken Type Acetaminophen [Acetaminophen TAB] 1,000 mg PO Q6H PRN tablet 10/13/18 06/26/19 13:10 Rx Budesonide [Pulmicort Respules] 0.5 mg IH Q12HRT #14 nebu 10/13/18 Unknown Rx DULoxetine [Cymbalta] 90 mg PO QDAY #90 capsule 10/13/18 Unknown Rx Ipratropium/Albuterol Sulfate 1 ampul IH BIDRT #30 ampul.neb 10/13/18 Unknown Rx [DUONEB *Not for PRN Use*] Potassium Chloride [K-Dur] 20 meq PO DAILY #30 tablet 10/13/18 06/26/19 13:09 Rx Torsemide [Demadex] 40 mg PO QDAY #60 tablet 10/13/18 06/26/19 13:09 Rx buPROPion XL [Wellbutrin XL] 150 mg PO QDAY #30 tablet 10/13/18 06/26/19 13:09 Rx cloNIDine-TTS PATCH [Catapres-Tts 0.2 mg TD Th #7 patch 10/13/18 Unknown Rx 0.2mg Patch] Aspirin EC [Halfprin EC] 81 mg PO QDAY #30 tablet.dr 06/26/19 Unknown Rx Pantoprazole [Protonix TAB] 40 mg PO QDAY #30 tablet 06/26/19 Unknown Rx oxyCODONE /ACETAMINOPHEN [Percocet 1 tab PO Q6HR PRN #10 tablet 06/26/19 Unknown Rx 5/325 mg] ALBUTEROL NEB's [Proventil 0.083% 2.5 mg IH Q4HRT PRN #30 nebu 06/27/19 Unknown Rx NEBS] Azithromycin [Zithromax TAB] 500 mg PO QDAY #4 tablet 06/27/19 Unknown Rx Ondansetron (Nf) [Zofran TAB] 8 mg PO Q8HR PRN #30 tablet 06/27/19 Unknown Rx Melatonin [Melatonin 10MG RAPDIS] 10 mg PO QHS PRN #14 tab.rapdis 06/28/19 Unknown Rx Mupirocin [Bactroban 2% OINT] 1 applic NS BID #1 tube 07/04/19 Unknown Rx levETIRAcetam [Keppra TAB] 500 mg PO BID #60 tablet 07/04/19 Unknown Rx Ondansetron [Zofran Odt] 4 mg PO Q8HR PRN #14 tab.rapdis 07/22/19 Unknown Rx traMADoL [Ultram 50 MG tab] 50 mg PO Q4HR PRN #14 tablet 07/22/19 Unknown Rx ALPRAZolam [Xanax TAB] 0.5 mg PO BID PRN #10 tab 08/23/19 Unknown Rx Ondansetron [Zofran Odt] 4 mg PO Q8HR PRN #20 tab.rapdis 08/23/19 Unknown Rx Prednisone [predniSONE 10 mg 10 mg PO .TAPER #1 tab.ds.pk 08/23/19 Unknown Rx (6-Day Pack, 21 Tabs)] Allergies Allergy/AdvReac Type Severity Reaction Status Date / Time zolpidem [From Ambien] Allergy Unknown Verified 07/22/19 02:56 ED Review of Systems ROS: Stated complaint: COUGH/SOB Other details as noted in HPI Comment: All other systems reviewed and negative ED Past Medical Hx - Past Medical History Hx Hypertension: Yes Hx Heart Attack/AMI: No Hx Congestive Heart Failure: Yes Hx Deep Vein Thrombosis: No Hx Pulmonary Embolism: No Hx GERD: Yes Hx Renal Disease: No Hx Arthritis: Yes Hx Seizures: No Hx Asthma: No Hx COPD: Yes Hx Tuberculosis: No Hx Dementia: No Additional medical history: chronic back pain - Surgical History Hx Coronary Stent: No Hx Pacemaker: No Hx Internal Defibrillator: No Hx Cholecystectomy: No Hx Appendectomy: No Additional Surgical History: hernia repair and lower back/ cycst removal - Social History Smoking Status: Former Smoker Substance Use Type: None - Medications Home Medications: Home Medications Medication Instructions Recorded Confirmed Last Taken Type Acetaminophen [Acetaminophen TAB] 1,000 mg PO Q6H PRN tablet 10/13/18 06/26/19 06/26/19 13:10 Rx Budesonide [Pulmicort Respules] 0.5 mg IH Q12HRT #14 nebu 10/13/18 06/26/19 Unknown Rx DULoxetine [Cymbalta] 90 mg PO QDAY #90 capsule 10/13/18 06/26/19 Unknown Rx Ipratropium/Albuterol Sulfate 1 ampul IH BIDRT #30 ampul.neb 10/13/18 06/26/19 Unknown Rx [DUONEB *Not for PRN Use*] Potassium Chloride [K-Dur] 20 meq PO DAILY #30 tablet 10/13/18 06/26/19 06/26/19 13:09 Rx Torsemide [Demadex] 40 mg PO QDAY #60 tablet 10/13/18 06/26/19 06/26/19 13:09 Rx buPROPion XL [Wellbutrin XL] 150 mg PO QDAY #30 tablet 10/13/18 06/26/19 06/26/19 13:09 Rx cloNIDine-TTS PATCH [Catapres-Tts 0.2 mg TD Th #7 patch 10/13/18 06/26/19 Unknown Rx 0.2mg Patch] Aspirin EC [Halfprin EC] 81 mg PO QDAY #30 tablet. 06/26/19 Unknown Rx Pantoprazole [Protonix TAB] 40 mg PO QDAY #30 tablet 06/26/19 Unknown Rx oxyCODONE /ACETAMINOPHEN [Percocet 1 tab PO Q6HR PRN #10 tablet 06/26/19 Unknown Rx 5/325 mg] ALBUTEROL NEB's [Proventil 0.083% 2.5 mg IH Q4HRT PRN #30 nebu 06/27/19 Unknown Rx NEBS] Azithromycin [Zithromax TAB] 500 mg PO QDAY #4 tablet 06/27/19 Unknown Rx Ondansetron (Nf) [Zofran TAB] 8 mg PO Q8HR PRN #30 tablet 06/27/19 Unknown Rx Melatonin [Melatonin 10MG RAPDIS] 10 mg PO QHS PRN #14 tab.rapdis 06/28/19 Unknown Rx Mupirocin [Bactroban 2% OINT] 1 applic NS BID #1 tube 07/04/19 Unknown Rx levETIRAcetam [Keppra TAB] 500 mg PO BID #60 tablet 07/04/19 Unknown Rx Ondansetron [Zofran Odt] 4 mg PO Q8HR PRN #14 tab.rapdis 07/22/19 Unknown Rx traMADoL [Ultram 50 MG tab] 50 mg PO Q4HR PRN #14 tablet 07/22/19 Unknown Rx ALPRAZolam [Xanax TAB] 0.5 mg PO BID PRN #10 tab 08/23/19 Unknown Rx Ondansetron [Zofran Odt] 4 mg PO Q8HR PRN #20 tab.rapdis 08/23/19 Unknown Rx Prednisone [predniSONE 10 mg 10 mg PO .TAPER #1 tab.ds.pk 08/23/19 Unknown Rx (6-Day Pack, 21 Tabs)] ED Physical Exam - General Limitations: No Limitations - Other Other exam information: General: No acute distress Head: Atraumatic Eyes: normal appearance ENT: Moist mucous membranes Neck: Normal appearance, no midline tenderness Chest: Bilateral wheezing, no crackles, no tachypnea or accessory muscle use CV: Regular rate and rhythm Abdomen: Soft, normal bowel sounds, nontender, nondistended, no rebound or g uarding Back: Normal inspection Extremity:mild swelling to right had and wrist, minimal tenderness, no warmth or erythema. from, limited movement of right shoulder due to pain. no calf tenderness or leg asymmetry Neuro: Alert O x 3, no facial asymmetry, speech clear, no gross motor sensory deficit Psych: Patient complains of feeling anxious Skin: No rash ED Course Vital Signs 08/23/19 08/23/19 08/23/19 09:58 10:00 10:12 Temperature 99.7 F H Pulse Rate 92 H Pulse Rate [ Bilateral] Respiratory 15 24 Rate Respiratory Rate [Bilateral ] Blood Pressure 165/96 165/96 O2 Sat by Pulse 91 92 92 Oximetry 08/23/19 08/23/19 08/23/19 10:15 10:30 10:45 Temperature Pulse Rate 93 H 95 H 91 H Pulse Rate [ Bilateral] Respiratory 18 21 10 L Rate Respiratory Rate [Bilateral ] Blood Pressure 140/77 159/88 154/78 O2 Sat by Pulse 100 99 98 Oximetry 08/23/19 08/23/19 08/23/19 11:00 11:15 11:30 Temperature Pulse Rate 88 95 H 99 H Pulse Rate [ Bilateral] Respiratory 16 9 L 10 L Rate Respiratory Rate [Bilateral ] Blood Pressure 158/77 147/93 147/93 O2 Sat by Pulse 97 96 98 Oximetry 08/23/19 08/23/19 08/23/19 11:46 11:55 11:59 Temperature Pulse Rate 88 Pulse Rate [ 92 H Bilateral] Respiratory 19 20 Rate Respiratory 22 Rate [Bilateral ] Blood Pressure 147/93 O2 Sat by Pulse 100 Oximetry 08/23/19 08/23/19 08/23/19 12:00 12:01 12:16 Temperature Pulse Rate 88 93 H Pulse Rate [ Bilateral] Respiratory 14 22 16 Rate Respiratory Rate [Bilateral ] Blood Pressure 147/93 147/93 O2 Sat by Pulse 100 92 97 Oximetry 08/23/19 08/23/19 08/23/19 12:25 12:30 12:46 Temperature Pulse Rate Pulse Rate [ Bilateral] Respiratory 18 Rate Respiratory Rate [Bilateral ] Blood Pressure 147/93 147/93 O2 Sat by Pulse 99 98 Oximetry 08/23/19 08/23/19 08/23/19 13:00 13:16 13:30 Temperature Pulse Rate Pulse Rate [ Bilateral] Respiratory Rate Respiratory Rate [Bilateral ] Blood Pressure 147/93 147/93 147/93 O2 Sat by Pulse 93 90 92 Oximetry 08/23/19 08/23/19 08/23/19 13:46 14:00 14:16 Temperature Pulse Rate Pulse Rate [ Bilateral] Respiratory Rate Respiratory Rate [Bilateral ] Blood Pressure 147/93 147/93 147/93 O2 Sat by Pulse 93 94 93 Oximetry 08/23/19 08/23/19 14:30 14:45 Temperature Pulse Rate Pulse Rate [ Bilateral] Respiratory Rate Respiratory Rate [Bilateral ] Blood Pressure 133/69 135/75 O2 Sat by Pulse 93 94 Oximetry ED Medical Decision Making - Lab Data Result diagrams: 08/23/19 12:37 08/23/19 12:37 Lab Results 08/23/19 08/23/19 08/23/19 Range/Units 12:37 12:37 12:37 WBC 8.2 (4.5-11.0) K/mm3 RBC 3.71 (3.65-5.03) M/mm3 Hgb 11.0 (10.1-14.3) gm/dl Hct 34.3 (30.3-42.9) % MCV 93 (79-97) fl MCH 30 (28-32) pg MCHC 32 (30-34) % RDW 17.6 H (13.2-15.2) % Plt Count 206 (140-440) K/mm3 Lymph % (Auto) 18.9 (13.4-35.0) % Atkinson % (Auto) 5.7 (0.0-7.3) % Eos % (Auto) 4.0 (0.0-4.3) % Baso % (Auto) 0.3 (0.0-1.8) % Lymph # 1.5 (1.2-5.4) K/mm3 Atkinson # 0.5 (0.0-0.8) K/mm3 Eos # 0.3 (0.0-0.4) K/mm3 Baso # 0.0 (0.0-0.1) K/mm3 Seg Neutrophils % 71.1 H (40.0-70.0) % Seg Neutrophils # 5.8 (1.8-7.7) K/mm3 PT 12.7 (12.2-14.9) Sec. INR 0.97 (0.87-1.13) Sodium 143 (137-145) mmol/L Potassium 3.7 (3.6-5.0) mmol/L Chloride 100.4 (98-107) mmol/L Carbon Dioxide 30 (22-30) mmol/L Anion Gap 16 mmol/L BUN 17 (7-17) mg/dL Creatinine 0.8 (0.7-1.2) mg/dL Estimated GFR > 60 ml/min BUN/Creatinine Ratio 21 % Glucose 108 H (65-100) mg/dL Calcium 9.4 (8.4-10.2) mg/dL Total Bilirubin 0.40 (0.1-1.2) mg/dL AST 13 (5-40) units/L ALT 11 (7-56) units/L Alkaline Phosphatase 73 (35-129) units/L Troponin T < 0.010 (0.00-0.029) ng/mL NT-Pro-B Natriuret Pep 152.1 (0-900) pg/mL Total Protein 6.2 L (6.3-8.2) g/dL Albumin 4.4 (3.9-5) g/dL Albumin/Globulin Ratio 2.4 % 08/23/19 Range/Units 15:22 WBC (4.5-11.0) K/mm3 RBC (3.65-5.03) M/mm3 Hgb (10.1-14.3) gm/dl Hct (30.3-42.9) % MCV (79-97) fl MCH (28-32) pg MCHC (30-34) % RDW (13.2-15.2) % Plt Count (140-440) K/mm3 Lymph % (Auto) (13.4-35.0) % Atkinson % (Auto) (0.0-7.3) % Eos % (Auto) (0.0-4.3) % Baso % (Auto) (0.0-1.8) % Lymph # (1.2-5.4) K/mm3 Atkinson # (0.0-0.8) K/mm3 Eos # (0.0-0.4) K/mm3 Baso # (0.0-0.1) K/mm3 Seg Neutrophils % (40.0-70.0) % Seg Neutrophils # (1.8-7.7) K/mm3 PT (12.2-14.9) Sec. INR (0.87-1.13) Sodium (137-145) mmol/L Potassium (3.6-5.0) mmol/L Chloride (98-107) mmol/L Carbon Dioxide (22-30) mmol/L Anion Gap mmol/L BUN (7-17) mg/dL Creatinine (0.7-1.2) mg/dL Estimated GFR ml/min BUN/Creatinine Ratio % Glucose (65-100) mg/dL Calcium (8.4-10.2) mg/dL Total Bilirubin (0.1-1.2) mg/dL AST (5-40) units/L ALT (7-56) units/L Alkaline Phosphatase (35-129) units/L Troponin T < 0.010 (0.00-0.029) ng/mL NT-Pro-B Natriuret Pep (0-900) pg/mL Total Protein (6.3-8.2) g/dL Albumin (3.9-5) g/dL Albumin/Globulin Ratio % - EKG Data -: EKG Interpreted by Me EKG shows normal: sinus rhythm, ST-T waves (no stemi) Rate: normal (86) - Radiology Data Radiology results: report reviewed CHEST 1 VIEW INDICATION / CLINICAL INFORMATION: wheeze, sob. COMPARISON: 07/24/2019 FINDINGS: SUPPORT DEVICES: None. HEART / MEDIASTINUM: Heart size is normal. The thoracic aorta is tortuous. LUNGS / PLEURA: No acute pulmonary disease. Mild hyperinflation may be due to COPD. No pneumothorax. ADDITIONAL FINDINGS: No significant additional findings. IMPRESSION: 1. No acute findings. - Medical Decision Making Patient with COPD exacerbation improved with ED treatment. Patient also feels better after receiving Xanax for her anxiety. patient appears to have frequent exacerbations and ED visits between [facility] and [facility]. 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 ED Disposition Clinical Impression: COPD exacerbation, Arthritis, Anxiety Disposition: DC-01 TO HOME OR SELFCARE Is pt being admited?: No Does the pt Need Aspirin: No Condition: Stable Instructions: Chronic Obstructive Pulmonary Disease (ED), Rheumatoid Arthritis (ED), Anxiety (ED) Additional Instructions: Take the medication as prescribed. Follow-up with your doctor or doctor/clinic provided. Return if symptoms worsen as indicated by your discharge instructions. Prescriptions: Prednisone [predniSONE 10 mg (6-Day Pack, 21 Tabs)] 10 mg PO .TAPER #1 tab.ds.pk ALPRAZolam [Xanax TAB] 0.5 mg PO BID PRN #10 tab PRN Reason: Anxiety Ondansetron [Zofran Odt] 4 mg PO Q8HR PRN #20 tab.rapdis PRN Reason: Nausea And Vomiting Referrals: PRIMARY CARE, [Primary Care Provider] - 3-5 Days MARK HAAS MD [Staff Physician] - 3-5 Days Time of Disposition: 16:41
--- NOTE | 2019-08-23 12:20 | XRay Report ---
CHEST 1 VIEW INDICATION / CLINICAL INFORMATION: wheeze, sob. COMPARISON: 07/24/2019 FINDINGS: SUPPORT DEVICES: None. HEART / MEDIASTINUM: Heart size is normal. The thoracic aorta is tortuous. LUNGS / PLEURA: No acute pulmonary disease. Mild hyperinflation may be due to COPD. No pneumothorax. ADDITIONAL FINDINGS: No significant additional findings. IMPRESSION: 1. No acute findings. Signer Name: Fredy Bunn MD Signed: 08/23/2019 12:15 PM Workstation Name: [id number]
[2019-08-23 13:15] LABS: Basophils % (Auto) 0.3 % (0.0-1.8); Eosinophils # (Auto) 0.3 K/mm3 (0.0-0.4); Hematocrit 34.3 % (30.3-42.9); Lymphocytes # (Auto) 1.5 K/mm3 (1.2-5.4); Lymphocytes % (Auto) 18.9 % (13.4-35.0); Mean Corpuscular HGB Conc 32 % (30-34); Mean Corpuscular Volume 93 fl (79-97); Monocytes # (Auto) 0.5 K/mm3 (0.0-0.8); Monocytes % (Auto) 5.7 % (0.0-7.3); Platelet Count 206 K/mm3 (140-440); Red Blood Count 3.71 M/mm3 (3.65-5.03); Red Cell Distribution Width 17.6 % (13.2-15.2)
[2019-08-23 13:28] LABS: INR 0.97 (0.87-1.13)
[2019-08-23 13:49] LABS: Alanine Aminotransferase 11 units/L (7-56); BUN/Creatinine Ratio 21; Blood Urea Nitrogen 17 mg/dL (7-17); Calcium 9.4 mg/dL (8.4-10.2)
[2019-08-23 13:50] LABS: Albumin 4.4 g/dL (3.9-5)
[2019-08-23] MEDS ORDERED: ONDANSETRON 4 MG/2 ML INJ IV PRN (18:32)
--- NOTE | 2019-08-23 18:32 | History and Physical Report ---
History of Present Illness Chief complaint: Im having a hard time breathing History of present illness: 69 YO Female with Diastolic CHF, COPD on 3 L Home oxygen, Chronic Respiratory Failure, Anxiety, HTN, OA, Chronic Pain presents to ED for evaluation. Pt states that she has experienced shortness of breath over the past 1 day with persistently worsening symptoms over the past 8 hours. Patient knowledges increased frequency of nebulizer therapy without relief, increased productive cough of green sputum, and chest discomfort associated with episodes of coughing. EMS notified and upon arrival the patient was found to be in distress and subsequently transported to [facility] for further care and evaluation of the afore mentioned symptoms. Patient seen and evaluated in the emergency department. Lab and imaging studies reviewed. Patient found to have acute on chronic respiratory failure secondary to exacerbation of chronic obstructive pulmonary disease. Patient is sitting upright in bed, using accessory muscles to breathe, tripoding, and unable to speak in complete sentences. Patient placed in observation status and admitted to medical floor due to increased risk of pulmonary decompensation. Patient treated with supplemental oxygen, IV steroid therapy, nebulizer therapy, and supportive care.. Patient denies fever, chills, prolonged travel/immobility, individual/family history of DVT/PE/bleeding/blood clotting disorder, unilateral leg swelling, recent ill contacts, or known exposure to COVID-19. Prior admission on 07/04/2019 reviewed. All medication listed at time of admission has been reconciled. Advanced care planning conducted in the emergency department. Past History Past Medical History: arthritis, COPD, heart failure, hypertension, other (See HPI) Past Surgical History: hernia repair, Other (Back cyst removal) Social history: single. denies: smoking, alcohol abuse, prescription drug abuse Family history: diabetes, hypertension Medications and Allergies Allergies Allergy/AdvReac Type Severity Reaction Status Date / Time zolpidem [From Ambien] Allergy Unknown Verified 07/22/19 02:56 Home Medications Medication Instructions Recorded Confirmed Last Taken Type Acetaminophen [Acetaminophen TAB] 1,000 mg PO Q6H PRN tablet 10/13/18 06/26/19 06/26/19 13:10 Rx Budesonide [Pulmicort Respules] 0.5 mg IH Q12HRT #14 nebu 10/13/18 06/26/19 Unknown Rx DULoxetine [Cymbalta] 90 mg PO QDAY #90 capsule 10/13/18 06/26/19 Unknown Rx Ipratropium/Albuterol Sulfate 1 ampul IH BIDRT #30 ampul.neb 10/13/18 06/26/19 Unknown Rx [DUONEB *Not for PRN Use*] Potassium Chloride [K-Dur] 20 meq PO DAILY #30 tablet 10/13/18 06/26/19 06/26/19 13:09 Rx Torsemide [Demadex] 40 mg PO QDAY #60 tablet 10/13/18 06/26/19 06/26/19 13:09 Rx buPROPion XL [Wellbutrin XL] 150 mg PO QDAY #30 tablet 10/13/18 06/26/19 06/26/19 13:09 Rx cloNIDine-TTS PATCH [Catapres-Tts 0.2 mg TD Th #7 patch 10/13/18 06/26/19 Unknown Rx 0.2mg Patch] Aspirin EC [Halfprin EC] 81 mg PO QDAY #30 tablet. 06/26/19 Unknown Rx Pantoprazole [Protonix TAB] 40 mg PO QDAY #30 tablet 06/26/19 Unknown Rx oxyCODONE /ACETAMINOPHEN [Percocet 1 tab PO Q6HR PRN #10 tablet 06/26/19 Unknown Rx 5/325 mg] ALBUTEROL NEB's [Proventil 0.083% 2.5 mg IH Q4HRT PRN #30 nebu 06/27/19 Unknown Rx NEBS] Azithromycin [Zithromax TAB] 500 mg PO QDAY #4 tablet 06/27/19 Unknown Rx Ondansetron (Nf) [Zofran TAB] 8 mg PO Q8HR PRN #30 tablet 06/27/19 Unknown Rx Melatonin [Melatonin 10MG RAPDIS] 10 mg PO QHS PRN #14 tab.rapdis 06/28/19 Unknown Rx Mupirocin [Bactroban 2% OINT] 1 applic NS BID #1 tube 07/04/19 Unknown Rx levETIRAcetam [Keppra TAB] 500 mg PO BID #60 tablet 07/04/19 Unknown Rx Ondansetron [Zofran Odt] 4 mg PO Q8HR PRN #14 tab.rapdis 07/22/19 Unknown Rx traMADoL [Ultram 50 MG tab] 50 mg PO Q4HR PRN #14 tablet 07/22/19 Unknown Rx Review of Systems Constitutional: no weight loss, no weight gain, no fever, no chills Ears, nose, mouth and throat: no ear pain, no ear discharge, no tinnitis, no decreased hearing, no nose pain Breasts: no change in shape, no swelling, no mass Cardiovascular: no chest pain, no orthopnea, no palpitations Respiratory: cough, cough with sputum, excessive sputum, shortness of breath Gastrointestinal: no abdominal pain, no nausea, no vomiting, no diarrhea Genitourinary Female: no pelvic pain, no flank pain, no menorrhagia Rectal: no pain, no incontinence, no bleeding Musculoskeletal: no neck stiffness, no neck pain, no shooting arm pain, no arm numbness/tingling, no low back pain, no shooting leg pain Integumentary: no rash, no pruritis, no redness, no sores, no wounds Neurological: no transient paralysis, no paralysis, no weakness, no parathesias, no numbness Psychiatric: no anxiety, no memory loss, no change in sleep habits, no sleep disturbances, no insomnia, no hypersomnia, no change in appetite Endocrine: no cold intolerance, no heat intolerance, no polyphagia, no excessive thirst, no polydipsia, no polyuria Hematologic/Lymphatic: no easy bruising, no easy bleeding, no lymphadenopathy, no lymphedema Allergic/Immunologic: no urticaria, no allergic rhinitis, no persistent infections, no anaphylaxis Exam - Constitutional Vitals: Temp Pulse Resp BP Pulse Ox 99.7 F H 93 H 18 135/75 94 08/23/19 10:12 08/23/19 12:16 08/23/19 12:25 08/23/19 14:45 08/23/19 14:45 General appearance: Present: mild distress - EENT Eyes: Present: PERRL ENT: hearing intact, clear oral mucosa - Neck Neck: Present: supple, normal ROM - Respiratory Respiratory effort: labored, accessory muscle use, stridor Respiratory: bilateral: diminished - Cardiovascular Heart Sounds: Present: S1 & S2. Absent: rub, click - Extremities Extremities: pulses symmetrical, No edema Peripheral Pulses: within normal limits - Abdominal General gastrointestinal: Present: soft, non-tender, non-distended, normal bowel sounds Female genitourinary: Present: normal - Integumentary Integumentary: Present: clear, warm, dry - Musculoskeletal Musculoskeletal: gait normal, strength equal bilaterally - Psychiatric Psychiatric: appropriate mood/affect, intact judgment & insight - Neurologic Neurologic: CNII-XII intact, moves all extremities HEART Score - HEART Score Troponin: Troponin T < 0.010 ng/mL (0.00-0.029) 08/23/19 15:22 Results - Labs CBC & Chem 7: 08/23/19 12:37 08/23/19 12:37 Labs: Abnormal lab results 08/23/19 08/23/19 Range/Units 12:37 12:37 RDW 17.6 H (13.2-15.2) % Seg Neutrophils % 71.1 H (40.0-70.0) % Glucose 108 H (65-100) mg/dL Total Protein 6.2 L (6.3-8.2) g/dL Assessment and Plan - Patient Problems (1) Acute and chronic respiratory failure Current Visit: No Status: Acute Qualifiers: Respiratory failure complication: hypoxia Qualified Code(s): J96.21 - Acute and chronic respiratory failure with hypoxia Plan to address problem: Supplemental oxygen, nebulizer therapy, pulse oximetry, chest x-ray, CBC, pulmonology team consulted in ED, noninvasive positive pressure ventilation as clinically indicated. (2) Hypertension Current Visit: Yes Status: Acute Qualifiers: Hypertension type: essential hypertension Qualified Code(s): I10 - Essential (primary) hypertension Plan to address problem: Monitor blood pressure every shift, continue medical management, supportive care. (3) COPD exacerbation Current Visit: Yes Status: Acute Plan to address problem: Supplemental oxygen, nebulizer therapy, IV steroid therapy, chest x-ray, noninvasive positive pressure ventilation as clinically indicated, empiric IV antibiotic therapy. Pulmonary team consulted in ED. (4) DVT prophylaxis Current Visit: Yes Status: Acute Plan to address problem: SCD to bilateral lower extremities while in bed, patient is ambulatory. (5) Advance care planning Current Visit: Yes Status: Acute Plan to address problem: Disease education conducted, patient knowledges understanding and agreement with care plan, patient discussed prognosis, patient is full code, +30 minutes.
--- NOTE | 2019-08-23 19:41 | Consultation ---
History of Present Illness Consult date: 08/23/19 Reason for consult: dyspnea, cough, COPD History of present illness: 69-year-old female the past medical history of diastolic CHF, COPD on 3 L home oxygen, chronic respiratory failure, anxiety, seizure disorder, hypertension, rheumatoid arthritis, chronic pain presented to the hospital with complaints of shortness of breath since yesterday that increased overnight. Patient has had increased wheezing, cough productive of green sputum, shortness of breath and chest tightness. Patient was seen recently at [facility] ED and just completed 5 days of prednisone the last dose yesterday. P Patient has been here multiple times as well and has had a negative stress test in [place], echo showing EF of 60 to 65% in June and diagnosis of moderate to severe pulmonary hypertension. There is also noted patient has narcotic dependence for chronic pain. Patient also complains of ongoing right shoulder pain since fall 3 weeks ago and right hand and wrist swelling. Patient received albuterol 5 mg in route Patient has history of smoking 1 pack x 35 years. Stopped smoking 5 years ago. Denies alchol or illicit drug abuse. 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 Allergic to Zolpidem. Patient chst xray reported no acute infiltrates. Patient is on 3 litres O2 saturation 98%. Patient started on albuterol/atrovent aerosol treatments, I/V solumedrol and Zithromax. Past History Past Medical History: arthritis, COPD, heart failure, hypertension, other (See HPI) Past Surgical History: hernia repair, Other (Back cyst removal) Social history: single. denies: smoking, alcohol abuse, prescription drug abuse Family history: diabetes, hypertension Medications and Allergies Allergies Allergy/AdvReac Type Severity Reaction Status Date / Time zolpidem [From Ambien] Allergy Unknown Verified 07/22/19 02:56 Home Medications Medication Instructions Recorded Confirmed Last Taken Type Acetaminophen [Acetaminophen TAB] 1,000 mg PO Q6H PRN tablet 10/13/18 06/26/19 06/26/19 13:10 Rx Budesonide [Pulmicort Respules] 0.5 mg IH Q12HRT #14 nebu 10/13/18 06/26/19 Unknown Rx DULoxetine [Cymbalta] 90 mg PO QDAY #90 capsule 10/13/18 06/26/19 Unknown Rx Ipratropium/Albuterol Sulfate 1 ampul IH BIDRT #30 ampul.neb 10/13/18 06/26/19 Unknown Rx [DUONEB *Not for PRN Use*] Potassium Chloride [K-Dur] 20 meq PO DAILY #30 tablet 10/13/18 06/26/19 06/26/19 13:09 Rx Torsemide [Demadex] 40 mg PO QDAY #60 tablet 10/13/18 06/26/19 06/26/19 13:09 Rx buPROPion XL [Wellbutrin XL] 150 mg PO QDAY #30 tablet 10/13/18 06/26/19 06/26/19 13:09 Rx cloNIDine-TTS PATCH [Catapres-Tts 0.2 mg TD Th #7 patch 10/13/18 06/26/19 Unkno wn Rx 0.2mg Patch] Aspirin EC [Halfprin EC] 81 mg PO QDAY #30 tablet. 06/26/19 Unknown Rx Pantoprazole [Protonix TAB] 40 mg PO QDAY #30 tablet 06/26/19 Unknown Rx oxyCODONE /ACETAMINOPHEN [Percocet 1 tab PO Q6HR PRN #10 tablet 06/26/19 Unknown Rx 5/325 mg] ALBUTEROL NEB's [Proventil 0.083% 2.5 mg IH Q4HRT PRN #30 nebu 06/27/19 Unknown Rx NEBS] Azithromycin [Zithromax TAB] 500 mg PO QDAY #4 tablet 06/27/19 Unknown Rx Ondansetron (Nf) [Zofran TAB] 8 mg PO Q8HR PRN #30 tablet 06/27/19 Unknown Rx Melatonin [Melatonin 10MG RAPDIS] 10 mg PO QHS PRN #14 tab.rapdis 06/28/19 Unknown Rx Mupirocin [Bactroban 2% OINT] 1 applic NS BID #1 tube 07/04/19 Unknown Rx levETIRAcetam [Keppra TAB] 500 mg PO BID #60 tablet 07/04/19 Unknown Rx Ondansetron [Zofran Odt] 4 mg PO Q8HR PRN #14 tab.rapdis 07/22/19 Unknown Rx traMADoL [Ultram 50 MG tab] 50 mg PO Q4HR PRN #14 tablet 07/22/19 Unknown Rx Active Meds: Active Medications Acetaminophen (Tylenol) 650 mg PO Q4H PRN PRN Reason: Pain MILD(1-3)/Fever >100.5/AMOR Azithromycin 500 mg/ Sodium (Chloride) 250 mls @ 250 mls/hr IV Q24HR ANGELES; Protocol Methylprednisolone Sodium Succinate (Solu-Medrol) 40 mg IV Q12HR ANGELES Ondansetron HCl (Zofran) 4 mg IV Q8H PRN PRN Reason: Nausea And Vomiting Sodium Chloride (Sodium Chloride Flush Syringe 10 Ml) 10 ml IV BID ANGELES Sodium Chloride (Sodium Chloride Flush Syringe 10 Ml) 10 ml IV PRN PRN PRN Reason: LINE FLUSH Review of Systems All systems: negative Physical Examination Vital signs: Vital Signs Pulse Ox 91 08/23/19 09:58 General appearance: alert, appears uncomfortable Eyes: non-icteric ENT: oropharynx moist Ascultation: Bilateral: diminished breath sounds, other (Prolonged expiratory phase.) Cardiovascular: regular rate and rhythm Gastrointestinal: normoactive bowel sounds, soft, non-tender Integumentary: normal Extremities: no cyanosis, no edema Musculoskeletal: no deformities Gait: poor gait normal mental status, non-focal exam, pupils equal and round anxious Results - Laboratory Findings CBC and BMP: 08/23/19 12:37 08/24/19 06:23 PT/INR, D-dimer PT 12.7 Sec. (12.2-14.9) 08/23/19 12:37 INR 0.97 (0.87-1.13) 08/23/19 12:37 Abnormal lab findings: Abnormal Labs 08/23/19 08/23/19 12:37 12:37 RDW 17.6 H Seg Neutrophils % 71.1 H Glucose 108 H Total Protein 6.2 L - Diagnostic Findings Chest x-ray: report reviewed, image reviewed Additional studies: CHEST 1 VIEW 08/23/19 INDICATION / CLINICAL INFORMATION: wheeze, sob. COMPARISON: 07/24/2019 FINDINGS: SUPPORT DEVICES: None. HEART / MEDIASTINUM: Heart size is normal. The thoracic aorta is tortuous. LUNGS / PLEURA: No acute pulmonary disease. Mild hyperinflation may be due to COPD. No pneumothorax. ADDITIONAL FINDINGS: No significant additional findings. IMPRESSION: 1. No acute findings. Assessment and Plan 69-year-old female the past medical history of diastolic CHF, COPD on 3 L home oxygen, chronic respiratory failure, anxiety, seizure disorder, hypertension, rheumatoid arthritis, chronic pain presented to the hospital with complaints of shortness of breath since yesterday that increased overnight. Patient has had increased wheezing, cough productive of green sputum, shortness of breath and chest tightness. Patient was seen recently at [facility] ED and just completed 5 days of prednisone the last dose yesterday. P Patient has been here multiple times as well and has had a negative stress test in [place], echo showing EF of 60 to 65% in June and diagnosis of moderate to severe pulmonary hypertension. There is also noted patient has narcotic dependence for chronic pain. Patient also complains of ongoing right shoulder pain since fall 3 weeks ago and right hand and wrist swelling. Patient received albuterol 5 mg in route Patient has history of smoking 1 pack x 35 years. Stopped smoking 5 years ago. Denies alchol or illicit drug abuse. 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 Allergic to Zolpidem. Patient chst xray reported no acute infiltrates. Patient is on 3 litres O2 saturation 98%. Patient started on albuterol/atrovent aerosol treatments, I/V solumedrol and Zithromax. - Patient Problems (1) COPD exacerbation Current Visit: Yes Status: Acute Plan to address problem: O2 3 litres via nasal canula. Albuterol/atrovent aerosol treatments. Continue solumedrol Continue Zithromax. DVT and GI prophylaxis. ABGs on room air. (2) Acute and chronic respiratory failure Current Visit: No Status: Acute Qualifiers: Respiratory failure complication: hypoxia Qualified Code(s): J96.21 - Acute and chronic respiratory failure with hypoxia Plan to address problem: O2 3 litres via nasal canula. Albuterol/atrovent aerosol treatments. Continue solumedrol Continue Zithromax. DVT and GI prophylaxis. ABGs on room air. (3) Hypertension Current Visit: Yes Status: Acute Qualifiers: Hypertension type: essential hypertension Qualified Code(s): I10 - Essential (primary) hypertension Plan to address problem: Management as per primary care. (4) Acute bronchitis Current Visit: No Status: Acute Plan to address problem: Patient is on Zithromax.
[2019-08-23] MEDS: ACETAMINOPHEN 325 MG TAB PO PRN (21:07)
[2019-08-23] MEDS: methylPREDNISolone Sod Succinate 40 MG/1 ML INJ IV SCH (21:07)
[2019-08-24 08:51] LABS: BUN/Creatinine Ratio 33; Blood Urea Nitrogen 26 mg/dL (7-17); Hemolysis Index 12
[2019-08-24] MEDS: ACETAMINOPHEN 325 MG TAB PO PRN ×2 (08:58→17:31)
[2019-08-24] MEDS: ALPRAZolam 0.5 MG TAB PO PRN ×3 (08:58→21:53)
[2019-08-24] MEDS: methylPREDNISolone Sod Succinate 40 MG/1 ML INJ IV SCH ×2 (08:59→21:48)
[2019-08-24] MEDS ORDERED: ALBUTEROL 2.5 MG/3 ML NEBU IH PRN (09:03)
[2019-08-24] MEDS ORDERED: AZITHROMYCIN 500 MG in SODIUM CHLORIDE 0.9% 250ML 250 ML IV SCH (10:00)
--- NOTE | 2019-08-24 16:57 | Progress Note ---
Assessment and Plan 69-year-old female the past medical history of diastolic CHF, COPD on 3 L home oxygen, chronic respiratory failure, anxiety, seizure disorder, hypertension, rheumatoid arthritis, chronic pain presented to the hospital with complaints of shortness of breath since yesterday that increased overnight. Patient has had increased wheezing, cough productive of green sputum, shortness of breath and chest tightness. Patient was seen recently at [facility] ED and just completed 5 days of prednisone the last dose yesterday. P Patient has been here multiple times as well and has had a negative stress test in [place], echo showing EF of 60 to 65% in June and diagnosis of moderate to severe pulmonary hypertension. There is also noted patient has narcotic dependence for chronic pain. Patient also complains of ongoing right shoulder pain since fall 3 weeks ago and right hand and wrist swelling. Patient received albuterol 5 mg in route Patient has history of smoking 1 pack x 35 years. Stopped smoking 5 years ago. Denies alchol or illicit drug abuse. 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 Allergic to Zolpidem. Patient chst xray reported no acute infiltrates. Patient is on 3 litres O2 saturation 98%. Patient started on albuterol/atrovent aerosol treatments, I/V solumedrol and Zithromax. 08/24/19 Patient alert, awake. Resting on 3 litres O2. O2 saturation 97%. Says breathing better. - Patient Problems (1) COPD exacerbation Current Visit: Yes Status: Acute Plan to address problem: O2 3 litres via nasal canula. Albuterol/atrovent aerosol treatments. Continue solumedrol Continue Zithromax. DVT and GI prophylaxis. ABGs on room air. (2) Acute and chronic respiratory failure Current Visit: No Status: Acute Qualifiers: Respiratory failure complication: hypoxia Qualified Code(s): J96.21 - Acute and chronic respiratory failure with hypoxia Plan to address problem: O2 3 litres via nasal canula. Albuterol/atrovent aerosol treatments. Continue solumedrol Continue Zithromax. DVT and GI prophylaxis. ABGs on room air (3) Hypertension Current Visit: Yes Status: Acute Qualifiers: Hypertension type: essential hypertension Qualified Code(s): I10 - Essential (primary) hypertension Plan to address problem: Management as per primary care. (4) Acute bronchitis Current Visit: No Status: Acute Plan to address problem: Patient is on Zithromax. Subjective Date of service: 08/24/19 Interval history: Patient alert, awake. Resting on 3 litres O2. O2 saturation 97%. Says breathing better. Objective Vital Signs - 12hr 08/24/19 08/24/19 08/24/19 07:04 11:15 13:06 Temperature 97.8 F 97.8 F Pulse Rate 76 79 Pulse Rate [ Bilateral] Respiratory 18 18 Rate Respiratory Rate [Bilateral ] Blood Pressure 142/79 126/79 O2 Sat by Pulse 97 98 94 Oximetry 08/24/19 08/24/19 08/24/19 13:09 13:53 16:21 Temperature 98.1 F Pulse Rate 77 Pulse Rate [ 79 Bilateral] Respiratory 18 Rate Respiratory 18 Rate [Bilateral ] Blood Pressure 141/65 O2 Sat by Pulse 94 94 Oximetry Constitutional: no acute distress, alert Eyes: non-icteric ENT: oropharynx moist Ascultation: Bilateral: diminished breath sounds, other (Prolonged expiratory phase.) Cardiovascular: regular rate and rhythm Gastrointestinal: normoactive bowel sounds, soft, non-tender Integumentary: normal Extremities: no cyanosis, no edema Neurologic: normal mental status, non-focal exam, pupils equal and round Psychiatric: anxious CBC and BMP: 08/23/19 12:37 08/24/19 06:23 ABG, PT/INR, D-dimer: PT/INR, D-dimer PT 12.7 Sec. (12.2-14.9) 08/23/19 12:37 INR 0.97 (0.87-1.13) 08/23/19 12:37 Abnormal lab findings: Abnormal Labs 08/23/19 08/23/19 08/23/19 12:37 12:37 22:56 RDW 17.6 H Seg Neutrophils % 71.1 H BUN Glucose 108 H POC Glucose 201 H Total Protein 6.2 L 08/24/19 06:23 RDW Seg Neutrophils % BUN 26 H Glucose 178 H POC Glucose Total Protein Chest x-ray: report reviewed, image reviewed Additional Studies: CHEST 1 VIEW 08/23/19 INDICATION / CLINICAL INFORMATION: wheeze, sob. COMPARISON: 07/24/2019 FINDINGS: SUPPORT DEVICES: None. HEART / MEDIASTINUM: Heart size is normal. The thoracic aorta is tortuous. LUNGS / PLEURA: No acute pulmonary disease. Mild hyperinflation may be due to COPD. No pneumothorax. ADDITIONAL FINDINGS: No significant additional findings. IMPRESSION: 1. No acute findings.
--- NOTE | 2019-08-24 17:23 | Progress Note ---
Assessment and Plan Day #2 Patient still short of breath and wheezing Minimal response to nebulizer treatments and steroids and antibiotics Slight improvement. (1) Acute and chronic respiratory failure Current Visit: No Status: Acute Qualifiers: Respiratory failure complication: hypoxia Qualified Code(s): J96.21 - Acute and chronic respiratory failure with hypoxia Plan to address problem: Patient still short of breath If improved will discharge her tomorrow. Patient changed to inpatient. (2) Hypertension Current Visit: Yes Status: Acute Qualifiers: Hypertension type: essential hypertension Qualified Code(s): I10 - Essential (primary) hypertension Plan to address problem: Monitor blood pressure every shift, continue medical management, supportive care. (3) COPD exacerbation Current Visit: Yes Status: Acute Plan to address problem: Supplemental oxygen, nebulizer therapy, IV steroid therapy, chest x-ray, noninvasive positive pressure ventilation as clinically indicated, empiric IV antibiotic therapy. Pulmonary team consulted in ED. (4) DVT prophylaxis Current Visit: Yes Status: Acute Plan to address problem: SCD to bilateral lower extremities while in bed, patient is ambulatory. (5) Advance care planning Current Visit: Yes Status: Acute Plan to address problem: Disease education conducted, patient knowledges understanding and agreement with care plan, patient discussed prognosis, patient is full code, +30 minutes. Subjective Date of service: 08/24/19 Principal diagnosis: Acute respiratory failure with hypoxia, COPD exacerbation Interval history: 69-year-old -[place] female with history of COPD on 3 L home her oxygen , chronic respiratory failure and COPD comes in increasing shortness of breath not responding to nebulizer treatments at home. Has been having worsening symptoms for 8 hours. Cough productive of yellow to green sputum. Chest discomfort. Patient not responding to home nebulizer treatments. Patient transported to [facility] for further evaluation and treatment. Patient is sitting upright in bed using accessory muscles of respiration and tripoding. Unable to complete sentences. Patient is using her accessory muscles of respiration. No fever. No recent exposure to coronavirus. No history of DVT or PE. No fever. Objective - Constitutional Vitals: Vital Signs - 12hr 08/24/19 08/24/19 08/24/19 07:04 11:15 13:06 Temperature 97.8 F 97.8 F Pulse Rate 76 79 Pulse Rate [ Bilateral] Respiratory 18 18 Rate Respiratory Rate [Bilateral ] Blood Pressure 142/79 126/79 O2 Sat by Pulse 97 98 94 Oximetry 08/24/19 08/24/19 08/24/19 13:09 13:53 16:21 Temperature 98.1 F Pulse Rate 77 Pulse Rate [ 79 Bilateral] Respiratory 18 Rate Respiratory 18 Rate [Bilateral ] Blood Pressure 141/65 O2 Sat by Pulse 94 94 Oximetry General appearance: Present: severe distress, well-nourished - EENT Eyes: PERRL, EOM intact ENT: hearing intact, clear oral mucosa Ears: bilateral: normal - Neck Neck: supple, normal ROM - Respiratory Respiratory effort: normal Respiratory: bilateral: CTA, rhonchi, wheezing (Tachypneic) - Breasts Breasts: normal - Cardiovascular Rhythm: regular Heart Sounds: Present: S1 & S2. Absent: gallop, rub Extremities: pulses intact, No edema, normal color, Full ROM - Gastrointestinal General gastrointestinal: Present: soft, non-tender, non-distended, normal bowel sounds - Genitourinary Female genitourinary: normal - Integumentary Integumentary: clear, warm, dry - Musculoskeletal Musculoskeletal: 1, strength equal bilaterally - Neurologic Neurologic: moves all extremities - Psychiatric Psychiatric: memory intact, appropriate mood/affect, intact judgment & insight - Allied health notes Allied health notes reviewed: nursing, case management - Labs CBC & Chem 7: 08/23/19 12:37 08/24/19 06:23 Labs: Abnormal lab results 08/23/19 08/24/19 Range/Units 22:56 06:23 BUN 26 H (7-17) mg/dL Glucose 178 H (65-100) mg/dL POC Glucose 201 H (70-105) HEART Score - HEART Score Troponin: Troponin T < 0.010 ng/mL (0.00-0.029) 08/23/19 15:22
[2019-08-24] MEDS: IPRATROPIUM/ALBUTEROL SULFATE 3 ML AMPUL.NEB IH SCH (17:55)
[2019-08-25] MEDS: BUDESONIDE 0.5 MG/2 ML NEBU IH SCH ×3 (00:02→22:05)
[2019-08-25] MEDS: IPRATROPIUM/ALBUTEROL SULFATE 3 ML AMPUL.NEB IH SCH ×5 (00:02→22:06)
[2019-08-25] MEDS: ARFORMOTEROL 15 MCG/2 ML NEBU IH SCH ×4 (00:02→22:06)
[2019-08-25 05:10] LABS: Hematocrit 33.2 % (30.3-42.9); Hemoglobin 10.6 gm/dl (10.1-14.3); Mean Corpuscular HGB Conc 32 % (30-34); Mean Corpuscular Volume 91 fl (79-97); Platelet Count 201 K/mm3 (140-440); Red Blood Count 3.66 M/mm3 (3.65-5.03); Red Cell Distribution Width 17.7 % (13.2-15.2)
[2019-08-25 05:22] LABS: Alanine Aminotransferase 9 units/L (7-56); Albumin 3.9 g/dL (3.9-5); BUN/Creatinine Ratio 36; Blood Urea Nitrogen 32 mg/dL (7-17); Calcium 8.9 mg/dL (8.4-10.2); Hemolysis Index 7
[2019-08-25 07:05] LABS: Basophils % (Manual) 0 % (0.0-1.8); Eosinophils % (Manual) 0 % (0.0-4.3); Total Cells Counted 100
[2019-08-25 07:06] LABS: Anisocytosis 1+; Platelet Estimate Consistent w Auto
[2019-08-25] MEDS: ACETAMINOPHEN 325 MG TAB PO PRN (12:43)
[2019-08-25] MEDS: AZITHROMYCIN 250 MG TAB PO SCH (12:43)
[2019-08-25] MEDS: ALPRAZolam 0.5 MG TAB PO PRN ×2 (12:43→21:41)
[2019-08-25] MEDS: methylPREDNISolone Sod Succinate 40 MG/1 ML INJ IV SCH ×2 (12:44→22:36)
--- NOTE | 2019-08-25 14:13 | Progress Note ---
Assessment and Plan 69-year-old female the past medical history of diastolic CHF, COPD on 3 L home oxygen, chronic respiratory failure, anxiety, seizure disorder, hypertension, rheumatoid arthritis, chronic pain presented to the hospital with complaints of shortness of breath since yesterday that increased overnight. Patient has had increased wheezing, cough productive of green sputum, shortness of breath and chest tightness. Patient was seen recently at [facility] ED and just completed 5 days of prednisone the last dose yesterday. P Patient has been here multiple times as well and has had a negative stress test in [place], echo showing EF of 60 to 65% in June and diagnosis of moderate to severe pulmonary hypertension. There is also noted patient has narcotic dependence for chronic pain. Patient also complains of ongoing right shoulder pain since fall 3 weeks ago and right hand and wrist swelling. Patient received albuterol 5 mg in route Patient has history of smoking 1 pack x 35 years. Stopped smoking 5 years ago. Denies alchol or illicit drug abuse. 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 Allergic to Zolpidem. Patient chst xray reported no acute infiltrates. Patient is on 3 litres O2 saturation 98%. Patient started on albuterol/atrovent aerosol treatments, I/V solumedrol and Zithromax. 08/24/19 Patient alert, awake. Resting on 3 litres O2. O2 saturation 97%. Says breathing better. 08/25/19 Patient alert, awake. Resting on 3 litres O2. O2 saturation 97%. Still complaining shortness of breath on exertion. - Patient Problems (1) COPD exacerbation Current Visit: Yes Status: Acute Plan to address problem: O2 3 litres via nasal canula. Albuterol/atrovent aerosol treatments. Continue solumedrol Continue Zithromax. DVT and GI prophylaxis. ABGs on room air. (2) Acute and chronic respiratory failure Current Visit: No Status: Acute Qualifiers: Respiratory failure complication: hypoxia Qualified Code(s): J96.21 - Acute and chronic respiratory failure with hypoxia Plan to address problem: O2 3 litres via nasal canula. Albuterol/atrovent aerosol treatments. Continue solumedrol Continue Zithromax. DVT and GI prophylaxis. ABGs on room air (3) Hypertension Current Visit: Yes Status: Acute Qualifiers: Hypertension type: essential hypertension Qualified Code(s): I10 - Essential (primary) hypertension Plan to address problem: Management as per primary care. (4) Acute bronchitis Current Visit: No Status: Acute Plan to address problem: Patient is on Zithromax. Subjective Date of service: 08/25/19 Principal diagnosis: Acute respiratory failure with hypoxia, COPD exacerbation Interval history: Patient alert, awake. Resting on 3 litres O2. O2 saturation 97%. Still complaining shortness of breath on exertion. Objective Vital Signs - 12hr 08/25/19 08/25/19 08/25/19 05:00 06:47 07:33 Temperature 98.1 F 97.5 F L Pulse Rate 81 94 H Pulse Rate [ 90 Bilateral] Respiratory 18 19 Rate Respiratory 20 Rate [Bilateral ] Blood Pressure 147/60 Blood Pressure 147/81 [Left] O2 Sat by Pulse 98 98 Oximetry 08/25/19 11:41 Temperature 98.3 F Pulse Rate 91 H Pulse Rate [ Bilateral] Respiratory 19 Rate Respiratory Rate [Bilateral ] Blood Pressure 151/66 Blood Pressure [Left] O2 Sat by Pulse 97 Oximetry Constitutional: no acute distress, alert Eyes: non-icteric ENT: oropharynx moist Neck: supple, no lymphadenopathy Ascultation: Bilateral: diminished breath sounds, other (Prolonged expiratory phase.) Cardiovascular: regular rate and rhythm Gastrointestinal: normoactive bowel sounds, soft, non-tender Integumentary: normal Extremities: no cyanosis, no edema Neurologic: normal mental status, non-focal exam, pupils equal and round Psychiatric: anxious CBC and BMP: 08/25/19 04:29 08/25/19 04:29 ABG, PT/INR, D-dimer: PT/INR, D-dimer PT 12.7 Sec. (12.2-14.9) 08/23/19 12:37 INR 0.97 (0.87-1.13) 08/23/19 12:37 Abnormal lab findings: Abnormal Labs 08/23/19 08/23/19 08/23/19 12:37 12:37 22:56 WBC RDW 17.6 H Seg Neutrophils % 71.1 H Seg Neuts % (Manual) Lymphocytes % (Manual) Seg Neutrophils # Man Lymphocytes # (Manual) BUN Glucose 108 H POC Glucose 201 H Total Protein 6.2 L 08/24/19 08/25/19 08/25/19 06:23 04:29 04:29 WBC 17.1 H RDW 17.7 H Seg Neutrophils % Seg Neuts % (Manual) 95.0 H Lymphocytes % (Manual) 4.0 L Seg Neutrophils # Man 16.2 H Lymphocytes # (Manual) 0.7 L BUN 26 H 32 H Glucose 178 H 152 H POC Glucose Total Protein 6.0 L
--- NOTE | 2019-08-25 21:42 | Progress Note ---
Assessment and Plan Day #2 Patient still short of breath and wheezing Minimal response to nebulizer treatments and steroids and antibiotics Slight improvement Day #3 Patient still short of breath and wheezing Minimal response to nebulizer treatments and steroids and antibiotics Slight improvement (1) Acute and chronic respiratory failure Current Visit: No Status: Acute Qualifiers: Respiratory failure complication: hypoxia Qualified Code(s): J96.21 - Acute and chronic respiratory failure with hypoxia Plan to address problem: Patient still short of breath If improved will discharge her tomorrow. Patient changed to inpatient. (2) Hypertension Current Visit: Yes Status: Acute Qualifiers: Hypertension type: essential hypertension Qualified Code(s): I10 - Essential (primary) hypertension Plan to address problem: Monitor blood pressure every shift, continue medical management, supportive care. (3) COPD exacerbation Current Visit: Yes Status: Acute Plan to address problem: Supplemental oxygen, nebulizer therapy, IV steroid therapy, chest x-ray, noninvasive positive pressure ventilation as clinically indicated, empiric IV antibiotic therapy. Pulmonary team consulted in ED. (4) DVT prophylaxis Current Visit: Yes Status: Acute Plan to address problem: SCD to bilateral lower extremities while in bed, patient is ambulatory. (5) Advance care planning Current Visit: Yes Status: Acute Plan to address problem: Disease education conducted, patient knowledges understanding and agreement with care plan, patient discussed prognosis, patient is full code, +30 minutes. Subjective Date of service: 08/25/19 Principal diagnosis: Acute respiratory failure with hypoxia, COPD exacerbation Interval history: 69-year-old -[place] female with history of COPD on 3 L home her oxygen , chronic respiratory failure and COPD comes in increasing shortness of breath not responding to nebulizer treatments at home. Has been having worsening symptoms for 8 hours. Cough productive of yellow to green sputum. Chest discomfort. Patient not responding to home nebulizer treatments. Patient transported to [facility] for further evaluation and treatment. Patient is sitting upright in bed using accessory muscles of respiration and tripoding. Unable to complete sentences. Patient is using her accessory muscles of respiration. No fever. No recent exposure to coronavirus. No history of DVT or PE. No fever. Objective - Constitutional Vitals: Vital Signs - 12hr 08/25/19 08/25/19 08/25/19 11:41 15:40 19:21 Temperature 98.3 F 98.2 F 98.4 F Pulse Rate 91 H 94 H 89 Respiratory 19 19 17 Rate Blood Pressure 151/66 134/75 155/76 O2 Sat by Pulse 97 96 98 Oximetry General appearance: Present: severe distress, well-nourished - EENT Eyes: PERRL, EOM intact ENT: hearing intact, clear oral mucosa Ears: bilateral: normal - Neck Neck: supple, normal ROM - Respiratory Respiratory effort: normal Respiratory: bilateral: CTA, rhonchi, wheezing - Breasts Breasts: normal - Cardiovascular Heart rate: 78 Rhythm: regular Heart Sounds: Present: S1 & S2. Absent: gallop, rub Extremities: pulses intact, No edema, normal color, Full ROM - Gastrointestinal General gastrointestinal: Present: soft, non-tender, non-distended, normal bowel sounds - Genitourinary Female genitourinary: normal - Integumentary Integumentary: clear, warm, dry - Musculoskeletal Musculoskeletal: 1, strength equal bilaterally - Neurologic Neurologic: moves all extremities - Psychiatric Psychiatric: memory intact, appropriate mood/affect, intact judgment & insight - Labs CBC & Chem 7: 08/25/19 04:29 08/25/19 04:29 Labs: Abnormal lab results 08/25/19 08/25/19 Range/Units 04:29 04:29 WBC 17.1 H (4.5-11.0) K/mm3 RDW 17.7 H (13.2-15.2) % Seg Neuts % (Manual) 95.0 H (40.0-70.0) % Lymphocytes % (Manual) 4.0 L (13.4-35.0) % Seg Neutrophils # Man 16.2 H (1.8-7.7) K/mm3 Lymphocytes # (Manual) 0.7 L (1.2-5.4) K/mm3 BUN 32 H (7-17) mg/dL Glucose 152 H (65-100) mg/dL Total Protein 6.0 L (6.3-8.2) g/dL HEART Score - HEART Score Troponin: Troponin T < 0.010 ng/mL (0.00-0.029) 08/23/19 15:22
[2019-08-25] MEDS: HYDROmorphone 1 MG/1 ML INJ IV PRN (22:35)
[2019-08-26] MEDS: IPRATROPIUM/ALBUTEROL SULFATE 3 ML AMPUL.NEB IH SCH ×4 (03:34→21:06)
[2019-08-26] MEDS: HYDROmorphone 1 MG/1 ML INJ IV PRN ×3 (04:10→21:34)
[2019-08-26] MEDS: ARFORMOTEROL 15 MCG/2 ML NEBU IH SCH ×2 (07:32→21:06)
[2019-08-26] MEDS: BUDESONIDE 0.5 MG/2 ML NEBU IH SCH ×2 (07:32→21:06)
[2019-08-26 11:15] LABS: ABG Base Excess 3.4 mmol/L (-2.0-3.0); ABG HCO3 29.1 mmol/L (20.0-26.0); ABG Methemoglobin 0.9 % (0.0-1.5); ABG Oxygen Saturation 92.6 % (95.0-99.0); ABG PCO2 49.5 mm Hg; ABG PH 7.388 pH Units (7.350-7.450)
[2019-08-26] MEDS: methylPREDNISolone Sod Succinate 40 MG/1 ML INJ IV SCH ×2 (11:22→21:34)
[2019-08-26] MEDS: AZITHROMYCIN 250 MG TAB PO SCH (11:22)
[2019-08-26] MEDS: ALPRAZolam 0.5 MG TAB PO PRN ×2 (11:23→21:34)
[2019-08-26] MEDS: ACETAMINOPHEN 325 MG TAB PO PRN (11:30)
--- NOTE | 2019-08-26 13:45 | Progress Note ---
Assessment and Plan Patient alert, awake. Resting on 3 litres O2. O2 saturation 96%. Patient says breathing better than yesterday.. ABG ABG pH 7.388 pH Units (7.350-7.450) 08/26/19 10:50 ABG pCO2 49.5 mm Hg 08/26/19 10:50 ABG pO2 61.0 mm Hg (80.0-90.0) L 08/26/19 10:50 ABG O2 Saturation 92.6 % (95.0-99.0) L 08/26/19 10:50 On room air. - Patient Problems (1) COPD exacerbation Current Visit: Yes Status: Acute Plan to address problem: O2 3 litres via nasal canula. Albuterol/atrovent aerosol treatments. Continue solumedrol Continue Zithromax. DVT and GI prophylaxis. (2) Acute and chronic respiratory failure Current Visit: No Status: Acute Qualifiers: Respiratory failure complication: hypoxia Qualified Code(s): J96.21 - Acute and chronic respiratory failure with hypoxia Plan to address problem: O2 3 litres via nasal canula. Albuterol/atrovent aerosol treatments. Continue solumedrol Continue Zithromax. DVT and GI prophylaxis. (3) Hypertension Current Visit: Yes Status: Acute Qualifiers: Hypertension type: essential hypertension Qualified Code(s): I10 - Essential (primary) hypertension Plan to address problem: Management as per primary care. (4) Acute bronchitis Current Visit: No Status: Acute Plan to address problem: Patient is on Zithromax. Subjective Date of service: 08/26/19 Principal diagnosis: Acute respiratory failure with hypoxia, COPD exacerbation Interval history: Patient alert, awake. Resting on 3 litres O2. O2 saturation 96%. Patient says breathing better than yesterday.. ABG ABG pH 7.388 pH Units (7.350-7.450) 08/26/19 10:50 ABG pCO2 49.5 mm Hg 08/26/19 10:50 ABG pO2 61.0 mm Hg (80.0-90.0) L 08/26/19 10:50 ABG O2 Saturation 92.6 % (95.0-99.0) L 08/26/19 10:50 On room air. Objective Vital Signs - 12hr 08/26/19 08/26/19 08/26/19 03:34 04:27 07:31 Temperature 98.2 F 98.3 F Pulse Rate 93 H 84 Pulse Rate [ 88 Bilateral] Respiratory 17 18 Rate Respiratory 20 Rate [Bilateral ] Blood Pressure 143/71 145/71 O2 Sat by Pulse 98 96 Oximetry 08/26/19 08/26/19 08/26/19 08:00 10:00 12:19 Temperature 98.8 F Pulse Rate 91 H Pulse Rate [ 74 Bilateral] Respiratory 18 Rate Respiratory 18 Rate [Bilateral ] Blood Pressure 145/71 O2 Sat by Pulse 99 97 Oximetry Constitutional: no acute distress, alert Eyes: non-icteric ENT: oropharynx moist Neck: supple, no lymphadenopathy Ascultation: Bilateral: diminished breath sounds, other (Prolonged expiratory phase.) Cardiovascular: regular rate and rhythm Gastrointestinal: normoactive bowel sounds, soft, non-tender Integumentary: normal Extremities: no cyanosis, no edema Neurologic: normal mental status, non-focal exam, pupils equal and round Psychiatric: anxious CBC and BMP: 08/25/19 04:29 08/25/19 04:29 ABG, PT/INR, D-dimer: ABG ABG pH 7.388 pH Units (7.350-7.450) 08/26/19 10:50 ABG pCO2 49.5 mm Hg 08/26/19 10:50 ABG pO2 61.0 mm Hg (80.0-90.0) L 08/26/19 10:50 ABG O2 Saturation 92.6 % (95.0-99.0) L 08/26/19 10:50 PT/INR, D-dimer PT 12.7 Sec. (12.2-14.9) 08/23/19 12:37 INR 0.97 (0.87-1.13) 08/23/19 12:37 Abnormal lab findings: Abnormal Labs 08/23/19 08/23/19 08/23/19 12:37 12:37 22:56 WBC RDW 17.6 H Seg Neutrophils % 71.1 H Seg Neuts % (Manual) Lymphocytes % (Manual) Seg Neutrophils # Man Lymphocytes # (Manual) ABG pO2 ABG HCO3 ABG O2 Saturation ABG Base Excess ABG Hemoglobin Oxyhemoglobin BUN Glucose 108 H POC Glucose 201 H Total Protein 6.2 L 08/24/19 08/25/19 08/25/19 06:23 04:29 04:29 WBC 17.1 H RDW 17.7 H Seg Neutrophils % Seg Neuts % (Manual) 95.0 H Lymphocytes % (Manual) 4.0 L Seg Neutrophils # Man 16.2 H Lymphocytes # (Manual) 0.7 L ABG pO2 ABG HCO3 ABG O2 Saturation ABG Base Excess ABG Hemoglobin Oxyhemoglobin BUN 26 H 32 H Glucose 178 H 152 H POC Glucose Total Protein 6.0 L 08/26/19 10:50 WBC RDW Seg Neutrophils % Seg Neuts % (Manual) Lymphocytes % (Manual) Seg Neutrophils # Man Lymphocytes # (Manual) ABG pO2 61.0 L ABG HCO3 29.1 H ABG O2 Saturation 92.6 L ABG Base Excess 3.4 H ABG Hemoglobin 11.5 L Oxyhemoglobin 90.5 L BUN Glucose POC Glucose Total Protein
[2019-08-27] MEDS: IPRATROPIUM/ALBUTEROL SULFATE 3 ML AMPUL.NEB IH SCH ×4 (04:46→23:25)
[2019-08-27] MEDS: HYDROmorphone 1 MG/1 ML INJ IV PRN ×4 (06:07→19:55)
[2019-08-27] MEDS: ARFORMOTEROL 15 MCG/2 ML NEBU IH SCH ×2 (07:58→23:18)
[2019-08-27] MEDS: BUDESONIDE 0.5 MG/2 ML NEBU IH SCH ×2 (07:58→23:18)
[2019-08-27] MEDS: methylPREDNISolone Sod Succinate 40 MG/1 ML INJ IV SCH ×2 (10:13→21:07)
[2019-08-27] MEDS: AZITHROMYCIN 250 MG TAB PO SCH (10:13)
[2019-08-27] MEDS: ALPRAZolam 0.5 MG TAB PO PRN ×2 (10:17→19:55)
--- NOTE | 2019-08-27 10:52 | Progress Note ---
Assessment and Plan Acute and chronic hypoxic respiratory failure AE-COPD HTN Anxiety disorder -Supplemental oxygen to keep O2 sats >90% -Bronchodilators- CEDRIC/FAHAD -Steroids, with taper -VTE prophylaxis -Accuchecks with glycemic control while on steroids Target blood glucose <180mg/dL -Stress ulcer prophylaxis while on steroids -Blood pressure monitoring -Azithromycin for anti-inflammatory effects -Anxiety management -BIPAP qhs and prn as indicated -ABG prn, CXR prn -Chronic home medications as clinically indicated -Discharge planning Subjective Date of service: 08/27/19 Principal diagnosis: Acute respiratory failure with hypoxia, COPD exacerbation Interval history: Follow up for acute and chronic hypoxic respiratory failure; AE-COPD; Anxiety disorder Seen and examined. Nursing and respiratory staff consulted; No adverse overnight events reported. remains on supplemental oxygen at 3L NC. Denies nay fevers or chills, states her breathing is better. No diarrhea, no vomiting, no nausea. No hemoptysis, has a moist cough Objective Vital Signs - 12hr 08/26/19 08/27/19 08/27/19 23:21 06:47 07:05 Temperature 98.6 F Pulse Rate 100 H 97 H Pulse Rate [ Bilateral] Respiratory 18 20 Rate Respiratory Rate [Bilateral ] Blood Pressure 149/67 157/85 Blood Pressure [Left] O2 Sat by Pulse 95 96 99 Oximetry 08/27/19 08/27/19 08/27/19 07:40 07:58 08:30 Temperature 98.5 F Pulse Rate 99 H Pulse Rate [ 94 H Bilateral] Respiratory 20 Rate Respiratory 16 Rate [Bilateral ] Blood Pressure Blood Pressure 157/85 [Left] O2 Sat by Pulse 98 98 Oximetry Constitutional: no acute distress, alert Eyes: non-icteric ENT: oropharynx moist Neck: supple, no lymphadenopathy Effort: mildly labored Ascultation: Bilateral: diminished breath sounds, other (Prolonged expiratory phase.) Cardiovascular: regular rate and rhythm Gastrointestinal: normoactive bowel sounds, soft, non-tender Integumentary: normal Extremities: no cyanosis, no edema Neurologic: normal mental status, non-focal exam, pupils equal and round Psychiatric: anxious CBC and BMP: 08/25/19 04:29 08/25/19 04:29 ABG, PT/INR, D-dimer: ABG ABG pH 7.388 pH Units (7.350-7.450) 08/26/19 10:50 ABG pCO2 49.5 mm Hg 08/26/19 10:50 ABG pO2 61.0 mm Hg (80.0-90.0) L 08/26/19 10:50 ABG O2 Saturation 92.6 % (95.0-99.0) L 08/26/19 10:50 PT/INR, D-dimer PT 12.7 Sec. (12.2-14.9) 08/23/19 12:37 INR 0.97 (0.87-1.13) 08/23/19 12:37 Abnormal lab findings: Abnormal Labs 08/23/19 08/23/19 08/23/19 12:37 12:37 22:56 WBC RDW 17.6 H Seg Neutrophils % 71.1 H Seg Neuts % (Manual) Lymphocytes % (Manual) Seg Neutrophils # Man Lymphocytes # (Manual) ABG pO2 ABG HCO3 ABG O2 Saturation ABG Base Excess ABG Hemoglobin Oxyhemoglobin BUN Glucose 108 H POC Glucose 201 H Total Protein 6.2 L 08/24/19 08/25/19 08/25/19 06:23 04:29 04:29 WBC 17.1 H RDW 17.7 H Seg Neutrophils % Seg Neuts % (Manual) 95.0 H Lymphocytes % (Manual) 4.0 L Seg Neutrophils # Man 16.2 H Lymphocytes # (Manual) 0.7 L ABG pO2 ABG HCO3 ABG O2 Saturation ABG Base Excess ABG Hemoglobin Oxyhemoglobin BUN 26 H 32 H Glucose 178 H 152 H POC Glucose Total Protein 6.0 L 08/26/19 10:50 WBC RDW Seg Neutrophils % Seg Neuts % (Manual) Lymphocytes % (Manual) Seg Neutrophils # Man Lymphocytes # (Manual) ABG pO2 61.0 L ABG HCO3 29.1 H ABG O2 Saturation 92.6 L ABG Base Excess 3.4 H ABG Hemoglobin 11.5 L Oxyhemoglobin 90.5 L BUN Glucose POC Glucose Total Protein Chest x-ray: image reviewed (Hyperinflated) Allied health notes reviewed: RT
--- NOTE | 2019-08-27 21:55 | Progress Note ---
Assessment and Plan Day #2 Patient still short of breath and wheezing Minimal response to nebulizer treatments and steroids and antibiotics Slight improvement. Day#3 Patient still short of breath and wheezing Minimal response to nebulizer treatments and steroids and antibiotics Slight improvement. (1) Acute and chronic respiratory failure Current Visit: No Status: Acute Qualifiers: Respiratory failure complication: hypoxia Qualified Code(s): J96.21 - Acute and chronic respiratory failure with hypoxia Plan to address problem: Patient still short of breath If improved will discharge her tomorrow. Patient changed to inpatient. (2) Hypertension Current Visit: Yes Status: Acute Qualifiers: Hypertension type: essential hypertension Qualified Code(s): I10 - Essential (primary) hypertension Plan to address problem: Monitor blood pressure every shift, continue medical management, supportive care. (3) COPD exacerbation Current Visit: Yes Status: Acute Plan to address problem: Supplemental oxygen, nebulizer therapy, IV steroid therapy, chest x-ray, noninvasive positive pressure ventilation as clinically indicated, empiric IV antibiotic therapy. Pulmonary team consulted in ED. (4) DVT prophylaxis Current Visit: Yes Status: Acute Plan to address problem: SCD to bilateral lower extremities while in bed, patient is ambulatory. (5) Advance care planning Current Visit: Yes Status: Acute Plan to address problem: Disease education conducted, patient knowledges understanding and agreement with care plan, patient discussed prognosis, patient is full code, +30 minutes. Subjective Date of service: 08/26/19 Principal diagnosis: Acute respiratory failure with hypoxia, COPD exacerbation Interval history: 69-year-old -[place] female with history of COPD on 3 L home her oxygen , chronic respiratory failure and COPD comes in increasing shortness of breath not responding to nebulizer treatments at home. Has been having worsening symptoms for 8 hours. Cough productive of yellow to green sputum. Chest discomfort. Patient not responding to home nebulizer treatments. Patient transported to [facility] for further evaluation and treatment. Patient is sitting upright in bed using accessory muscles of respiration and tripoding. Unable to complete sentences. Patient is using her accessory muscles of respiration. No fever. No recent exposure to coronavirus. No history of DVT or PE. No fever. Objective - Constitutional Vitals: Vital Signs - 12hr 08/27/19 08/27/19 08/27/19 11:02 13:49 16:05 Temperature 98.0 F 98.8 F Pulse Rate 109 H 98 H Pulse Rate [ 94 H Bilateral] Respiratory 20 22 Rate Respiratory 16 Rate [Bilateral ] Blood Pressure 101/73 165/70 O2 Sat by Pulse 95 99 Oximetry 08/27/19 08/27/19 08/27/19 19:18 19:20 20:25 Temperature 98.9 F 98.9 F Pulse Rate 102 H 96 H Pulse Rate [ Bilateral] Respiratory 18 18 20 Rate Respiratory Rate [Bilateral ] Blood Pressure 171/74 148/74 O2 Sat by Pulse 98 97 Oximetry General appearance: Present: severe distress, well-nourished - EENT Eyes: PERRL, EOM intact ENT: hearing intact, clear oral mucosa Ears: bilateral: normal - Neck Neck: supple, normal ROM - Respiratory Respiratory effort: normal Respiratory: bilateral: diminished, rhonchi, wheezing - Breasts Breasts: normal - Cardiovascular Rhythm: regular Heart Sounds: Present: S1 & S2. Absent: gallop, rub Extremities: pulses intact, No edema, normal color, Full ROM - Gastrointestinal General gastrointestinal: Present: soft, non-tender, non-distended, normal bowel sounds - Genitourinary Female genitourinary: normal - Integumentary Integumentary: clear, warm, dry - Musculoskeletal Musculoskeletal: 1, strength equal bilaterally - Neurologic Neurologic: moves all extremities - Psychiatric Psychiatric: memory intact, appropriate mood/affect, intact judgment & insight - Labs CBC & Chem 7: 08/25/19 04:29 08/25/19 04:29 HEART Score - HEART Score Troponin: Troponin T < 0.010 ng/mL (0.00-0.029) 08/23/19 15:22
--- NOTE | 2019-08-27 22:00 | Progress Note ---
Assessment and Plan Day #2 Patient still short of breath and wheezing Minimal response to nebulizer treatments and steroids and antibiotics Slight improvement Day #3 Patient still short of breath and wheezing Minimal response to nebulizer treatments and steroids and antibiotics Slight improvement Day#4 Still wheezing and Tavhypneic Day #5 Still wheezing a lot Tachypneic (1) Acute and chronic respiratory failure Current Visit: No Status: Acute Qualifiers: Respiratory failure complication: hypoxia Qualified Code(s): J96.21 - Acute and chronic respiratory failure with hypoxia Plan to address problem: Patient still short of breath and tachypneic If improved will discharge her tomorrow. Patient changed to (2) Hypertension Current Visit: Yes Status: Acute Qualifiers: Hypertension type: essential hypertension Qualified Code(s): I10 - Essential (primary) hypertension Plan to address problem: Monitor blood pressure every shift, continue medical management, supportive care. (3) COPD exacerbation Current Visit: Yes Status: Acute Plan to address problem: Supplemental oxygen, nebulizer therapy, IV steroid therapy, chest x-ray, noninvasive positive pressure ventilation as clinically indicated, empiric IV antibiotic therapy. Pulmonary team consulted in ED. (4) DVT prophylaxis Current Visit: Yes Status: Acute Plan to address problem: SCD to bilateral lower extremities while in bed, patient is ambulatory. (5) Advance care planning Current Visit: Yes Status: Acute Plan to address problem: Disease education conducted, patient knowledges understanding and agreement with care plan, patient discussed prognosis, patient is full code, +30 minutes. Subjective Date of service: 08/27/19 Principal diagnosis: Acute respiratory failure with hypoxia, COPD exacerbation Interval history: 69-year-old -[place] female with history of COPD on 3 L home her oxygen , chronic respiratory failure and COPD comes in increasing shortness of breath not responding to nebulizer treatments at home. Has been having worsening symptoms for 8 hours. Cough productive of yellow to green sputum. Chest discomfort. Patient not responding to home nebulizer treatments. Patient transported to [facility] for further evaluation and treatment. Patient is sitting upright in bed using accessory muscles of respiration and tripoding. Unable to complete sentences. Patient is using her accessory muscles of respiration. No fever. No recent exposure to coronavirus. No history of DVT or PE. No fever. Still wheezing a lot Tachypneic Objective - Constitutional Vitals: Vital Signs - 12hr 08/27/19 08/27/19 08/27/19 11:02 13:49 16:05 Temperature 98.0 F 98.8 F Pulse Rate 109 H 98 H Pulse Rate [ 94 H Bilateral] Respiratory 20 22 Rate Respiratory 16 Rate [Bilateral ] Blood Pressure 101/73 165/70 O2 Sat by Pulse 95 99 Oximetry 08/27/19 08/27/19 08/27/19 19:18 19:20 20:25 Temperature 98.9 F 98.9 F Pulse Rate 102 H 96 H Pulse Rate [ Bilateral] Respiratory 18 18 20 Rate Respiratory Rate [Bilateral ] Blood Pressure 171/74 148/74 O2 Sat by Pulse 98 97 Oximetry General appearance: Present: severe distress - EENT Eyes: PERRL, EOM intact ENT: hearing intact, clear oral mucosa Ears: bilateral: normal - Neck Neck: supple, normal ROM - Respiratory Respiratory effort: normal Respiratory: bilateral: CTA, rhonchi, wheezing - Breasts Breasts: normal - Cardiovascular Rhythm: regular Heart Sounds: Present: S1 & S2. Absent: gallop, rub Extremities: pulses intact, No edema, normal color, Full ROM - Gastrointestinal General gastrointestinal: Present: soft, non-tender, non-distended, normal bowel sounds - Genitourinary Female genitourinary: normal - Integumentary Integumentary: clear, warm, dry - Musculoskeletal Musculoskeletal: 1, strength equal bilaterally - Neurologic Neurologic: moves all extremities - Psychiatric Psychiatric: memory intact, appropriate mood/affect, intact judgment & insight - Labs CBC & Chem 7: 08/25/19 04:29 08/25/19 04:29 HEART Score - HEART Score Troponin: Troponin T < 0.010 ng/mL (0.00-0.029) 08/23/19 15:22
[2019-08-28] MEDS: IPRATROPIUM/ALBUTEROL SULFATE 3 ML AMPUL.NEB IH SCH ×4 (03:19→21:39)
[2019-08-28] MEDS: HYDROmorphone 1 MG/1 ML INJ IV PRN ×3 (03:36→22:44)
[2019-08-28] MEDS: guaiFENesin 100 MG/5 ML ORAL LIQD PO PRN (03:36)
[2019-08-28] MEDS: hydrALAZINE 20 MG/1 ML INJ IV PRN ×2 (06:55→15:37)
[2019-08-28] MEDS: ALPRAZolam 0.5 MG TAB PO PRN ×2 (07:51→20:01)
[2019-08-28] MEDS: ARFORMOTEROL 15 MCG/2 ML NEBU IH SCH ×2 (08:06→21:39)
[2019-08-28] MEDS: BUDESONIDE 0.5 MG/2 ML NEBU IH SCH ×2 (08:06→21:39)
[2019-08-28] MEDS: methylPREDNISolone Sod Succinate 40 MG/1 ML INJ IV SCH ×2 (10:28→21:54)
[2019-08-28] MEDS: AZITHROMYCIN 250 MG TAB PO SCH (10:33)
--- NOTE | 2019-08-28 11:38 | Progress Note ---
Assessment and Plan Patient alert, awake. Still complaining shortness of breath. Patient anxious. Patient is on Vapotherm, FIO2 40%. O2 saturation 99%. Recommend slowly wean FIO2. ABG ABG pH 7.388 pH Units (7.350-7.450) 08/26/19 10:50 ABG pCO2 49.5 mm Hg 08/26/19 10:50 ABG pO2 61.0 mm Hg (80.0-90.0) L 08/26/19 10:50 ABG O2 Saturation 92.6 % (95.0-99.0) L 08/26/19 10:50 On room air. - Patient Problems (1) COPD exacerbation Current Visit: Yes Status: Acute Plan to address problem: Vapotherm, FIO2 40%. Albuterol/atrovent aerosol treatments. Continue solumedrol Continue Zithromax. DVT and GI prophylaxis. (2) Acute and chronic respiratory failure Current Visit: No Status: Acute Qualifiers: Respiratory failure complication: hypoxia Qualified Code(s): J96.21 - Acute and chronic respiratory failure with hypoxia Plan to address problem: Vapotherm, FIO2 40%. Albuterol/atrovent aerosol treatments. Continue solumedrol Continue Zithromax. DVT and GI prophylaxis. (3) Hypertension Current Visit: Yes Status: Acute Qualifiers: Hypertension type: essential hypertension Qualified Code(s): I10 - Essential (primary) hypertension Plan to address problem: Management as per primary care. (4) Acute bronchitis Current Visit: No Status: Acute Plan to address problem: Patient is on Zithromax. Subjective Date of service: 08/28/19 Principal diagnosis: Acute respiratory failure with hypoxia, COPD exacerbation Interval history: Patient alert, awake. Still complaining shortness of breath. Patient anxious. Patient is on Vapotherm, FIO2 40%. O2 saturation 99%. Recommend slowly wean FIO2. ABG ABG pH 7.388 pH Units (7.350-7.450) 08/26/19 10:50 ABG pCO2 49.5 mm Hg 08/26/19 10:50 ABG pO2 61.0 mm Hg (80.0-90.0) L 08/26/19 10:50 ABG O2 Saturation 92.6 % (95.0-99.0) L 08/26/19 10:50 On room air. Objective Vital Signs - 12hr 08/28/19 08/28/19 08/28/19 03:36 03:49 03:50 Temperature 98.3 F Pulse Rate 92 H 92 H Respiratory 20 18 Rate Blood Pressure 179/93 166/91 Blood Pressure [Left] O2 Sat by Pulse 99 97 Oximetry 08/28/19 08/28/19 08/28/19 05:59 06:55 07:18 Temperature 97.9 F Pulse Rate 92 H 101 H Respiratory 19 Rate Blood Pressure 161/82 166/91 Blood Pressure 181/80 [Left] O2 Sat by Pulse 96 Oximetry 08/28/19 11:13 Temperature 97.8 F Pulse Rate 97 H Respiratory 19 Rate Blood Pressure Blood Pressure 153/73 [Left] O2 Sat by Pulse 99 Oximetry Constitutional: no acute distress, alert Eyes: non-icteric ENT: oropharynx moist Neck: supple, no lymphadenopathy Ascultation: Bilateral: diminished breath sounds, other (Prolonged expiratory phase.) Cardiovascular: regular rate and rhythm Gastrointestinal: normoactive bowel sounds, soft, non-tender Integumentary: normal Extremities: no cyanosis, no edema Neurologic: normal mental status, non-focal exam, pupils equal and round Psychiatric: anxious CBC and BMP: 08/25/19 04:29 08/25/19 04:29 ABG, PT/INR, D-dimer: ABG ABG pH 7.388 pH Units (7.350-7.450) 08/26/19 10:50 ABG pCO2 49.5 mm Hg 08/26/19 10:50 ABG pO2 61.0 mm Hg (80.0-90.0) L 08/26/19 10:50 ABG O2 Saturation 92.6 % (95.0-99.0) L 08/26/19 10:50 PT/INR, D-dimer PT 12.7 Sec. (12.2-14.9) 08/23/19 12:37 INR 0.97 (0.87-1.13) 08/23/19 12:37 Abnormal lab findings: Abnormal Labs 08/23/19 08/23/19 08/23/19 12:37 12:37 22:56 WBC RDW 17.6 H Seg Neutrophils % 71.1 H Seg Neuts % (Manual) Lymphocytes % (Manual) Seg Neutrophils # Man Lymphocytes # (Manual) ABG pO2 ABG HCO3 ABG O2 Saturation ABG Base Excess ABG Hemoglobin Oxyhemoglobin BUN Glucose 108 H POC Glucose 201 H Total Protein 6.2 L 08/24/19 08/25/19 08/25/19 06:23 04:29 04:29 WBC 17.1 H RDW 17.7 H Seg Neutrophils % Seg Neuts % (Manual) 95.0 H Lymphocytes % (Manual) 4.0 L Seg Neutrophils # Man 16.2 H Lymphocytes # (Manual) 0.7 L ABG pO2 ABG HCO3 ABG O2 Saturation ABG Base Excess ABG Hemoglobin Oxyhemoglobin BUN 26 H 32 H Glucose 178 H 152 H POC Glucose Total Protein 6.0 L 08/26/19 10:50 WBC RDW Seg Neutrophils % Seg Neuts % (Manual) Lymphocytes % (Manual) Seg Neutrophils # Man Lymphocytes # (Manual) ABG pO2 61.0 L ABG HCO3 29.1 H ABG O2 Saturation 92.6 L ABG Base Excess 3.4 H ABG Hemoglobin 11.5 L Oxyhemoglobin 90.5 L BUN Glucose POC Glucose Total Protein
[2019-08-29] MEDS: IPRATROPIUM/ALBUTEROL SULFATE 3 ML AMPUL.NEB IH SCH ×4 (04:47→22:23)
[2019-08-29] MEDS: ARFORMOTEROL 15 MCG/2 ML NEBU IH SCH ×2 (07:32→22:23)
[2019-08-29] MEDS: BUDESONIDE 0.5 MG/2 ML NEBU IH SCH ×2 (07:32→22:23)
[2019-08-29] MEDS: hydrALAZINE 20 MG/1 ML INJ IV PRN (10:00)
[2019-08-29] MEDS: methylPREDNISolone Sod Succinate 40 MG/1 ML INJ IV SCH ×2 (10:31→22:04)
[2019-08-29] MEDS: ALPRAZolam 0.5 MG TAB PO PRN ×2 (10:39→22:03)
[2019-08-29] MEDS: HYDROmorphone 1 MG/1 ML INJ IV PRN (15:32)
[2019-08-29] MEDS: guaiFENesin 100 MG/5 ML ORAL LIQD PO PRN ×2 (15:38→22:03)
--- NOTE | 2019-08-29 21:09 | Progress Note ---
Assessment and Plan Patient alert, awake. Patient off the vapotherm. Patient is on 3 litres O2. O2 saturation 97%. Patient already has home O2. ABG ABG pH 7.388 pH Units (7.350-7.450) 08/26/19 10:50 ABG pCO2 49.5 mm Hg 08/26/19 10:50 ABG pO2 61.0 mm Hg (80.0-90.0) L 08/26/19 10:50 ABG O2 Saturation 92.6 % (95.0-99.0) L 08/26/19 10:50 On room air. - Patient Problems (1) COPD exacerbation Current Visit: Yes Status: Acute Plan to address problem: O2 3 litres via nasal canula. Albuterol/atrovent aerosol treatments. Continue solumedrol Continue Zithromax. DVT and GI prophylaxis. (2) Acute and chronic respiratory failure Current Visit: No Status: Acute Qualifiers: Respiratory failure complication: hypoxia Qualified Code(s): J96.21 - Acute and chronic respiratory failure with hypoxia Plan to address problem: O2 3 litres via nasal canula. Albuterol/atrovent aerosol treatments. Continue solumedrol Continue Zithromax. DVT and GI prophylaxis. (3) Hypertension Current Visit: Yes Status: Acute Qualifiers: Hypertension type: essential hypertension Qualified Code(s): I10 - Essential (primary) hypertension Plan to address problem: Management as per primary care. (4) Acute bronchitis Current Visit: No Status: Acute Plan to address problem: Patient is on Zithromax. Subjective Date of service: 08/29/19 Principal diagnosis: Acute respiratory failure with hypoxia, COPD exacerbation Interval history: Patient alert, awake. Patient off the vapotherm. Patient is on 3 litres O2. O2 saturation 97%. Patient already has home O2. ABG ABG pH 7.388 pH Units (7.350-7.450) 08/26/19 10:50 ABG pCO2 49.5 mm Hg 08/26/19 10:50 ABG pO2 61.0 mm Hg (80.0-90.0) L 08/26/19 10:50 ABG O2 Saturation 92.6 % (95.0-99.0) L 08/26/19 10:50 On room air. Objective Vital Signs - 12hr 07/07/1308/29/19 08/29/19 10:00 11:08 14:51 Temperature 98.0 F Pulse Rate 84 97 H Pulse Rate [ 84 Bilateral] Respiratory 19 Rate Respiratory 19 Rate [Bilateral ] Blood Pressure 164/90 153/70 O2 Sat by Pulse 97 Oximetry 08/29/19 08/29/19 15:28 19:17 Temperature 97.8 F 98.7 F Pulse Rate 111 H 104 H Pulse Rate [ Bilateral] Respiratory 20 20 Rate Respiratory Rate [Bilateral ] Blood Pressure 134/71 142/72 O2 Sat by Pulse 98 97 Oximetry Constitutional: no acute distress, alert Eyes: non-icteric ENT: oropharynx moist Neck: supple, no lymphadenopathy Effort: mildly labored Ascultation: Bilateral: diminished breath sounds, other (Prolonged expiratory phase.) Cardiovascular: regular rate and rhythm Gastrointestinal: normoactive bowel sounds, soft, non-tender Integumentary: normal Extremities: no cyanosis, no edema Neurologic: normal mental status, non-focal exam, pupils equal and round Psychiatric: anxious CBC and BMP: 08/25/19 04:29 08/25/19 04:29 ABG, PT/INR, D-dimer: ABG ABG pH 7.388 pH Units (7.350-7.450) 08/26/19 10:50 ABG pCO2 49.5 mm Hg 08/26/19 10:50 ABG pO2 61.0 mm Hg (80.0-90.0) L 08/26/19 10:50 ABG O2 Saturation 92.6 % (95.0-99.0) L 08/26/19 10:50 PT/INR, D-dimer PT 12.7 Sec. (12.2-14.9) 08/23/19 12:37 INR 0.97 (0.87-1.13) 08/23/19 12:37 Abnormal lab findings: Abnormal Labs 08/23/19 08/23/19 08/23/19 12:37 12:37 22:56 WBC RDW 17.6 H Seg Neutrophils % 71.1 H Seg Neuts % (Manual) Lymphocytes % (Manual) Seg Neutrophils # Man Lymphocytes # (Manual) ABG pO2 ABG HCO3 ABG O2 Saturation ABG Base Excess ABG Hemoglobin Oxyhemoglobin BUN Glucose 108 H POC Glucose 201 H Total Protein 6.2 L 08/24/19 08/25/1908/24/20 06:23 04:29 04:29 WBC 17.1 H RDW 17.7 H Seg Neutrophils % Seg Neuts % (Manual) 95.0 H Lymphocytes % (Manual) 4.0 L Seg Neutrophils # Man 16.2 H Lymphocytes # (Manual) 0.7 L ABG pO2 ABG HCO3 ABG O2 Saturation ABG Base Excess ABG Hemoglobin Oxyhemoglobin BUN 26 H 32 H Glucose 178 H 152 H POC Glucose Total Protein 6.0 L 08/26/19 10:50 WBC RDW Seg Neutrophils % Seg Neuts % (Manual) Lymphocytes % (Manual) Seg Neutrophils # Man Lymphocytes # (Manual) ABG pO2 61.0 L ABG HCO3 29.1 H ABG O2 Saturation 92.6 L ABG Base Excess 3.4 H ABG Hemoglobin 11.5 L Oxyhemoglobin 90.5 L BUN Glucose POC Glucose Total Protein Allied health notes reviewed: RT
--- NOTE | 2019-08-29 23:59 | Progress Note ---
Assessment and Plan Day #2 Patient still short of breath and wheezing Minimal response to nebulizer treatments and steroids and antibiotics Slight improvement Day #3 Patient still short of breath and wheezing Minimal response to nebulizer treatments and steroids and antibiotics Slight improvement Day#4 Still wheezing and Tavhypneic Day #5 Still wheezing a lot Tachypneic Day #6 Tachypneic Sob++++ (1) Acute and chronic respiratory failure Current Visit: No Status: Acute Qualifiers: Respiratory failure complication: hypoxia Qualified Code(s): J96.21 - Acute and chronic respiratory failure with hypoxia Plan to address problem: Patient still short of breath and tachypneic If improved will discharge her tomorrow. Patient maybe ESLD (2) Hypertension Current Visit: Yes Status: Acute Qualifiers: Hypertension type: essential hypertension Qualified Code(s): I10 - Essential (primary) hypertension Plan to address problem: Monitor blood pressure every shift, continue medical management, supportive care. (3) COPD exacerbation Current Visit: Yes Status: Acute Plan to address problem: Supplemental oxygen, nebulizer therapy, IV steroid therapy, chest x-ray, noninvasive positive pressure ventilation as clinically indicated, empiric IV antibiotic therapy. Pulmonary team consulted in ED. (4) DVT prophylaxis Current Visit: Yes Status: Acute Plan to address problem: SCD to bilateral lower extremities while in bed, patient is ambulatory. (5) Advance care planning Current Visit: Yes Status: Acute Plan to address problem: Disease education conducted, patient knowledges understanding and agreement with care plan, patient discussed prognosis, patient is full code, +30 minutes. Subjective Date of service: 08/29/19 Principal diagnosis: Acute respiratory failure with hypoxia, COPD exacerbation Interval history: Day#6 69-year-old -[place]ian female with history of COPD on 3 L home her oxygen , chronic respiratory failure and COPD comes in increasing shortness of breath not responding to nebulizer treatments at home. Has been having worsening symptoms for 8 hours. Cough productive of yellow to green sputum. Chest discomfort. Patient not responding to home nebulizer treatments. Patient transported to [facility] for further evaluation and treatment. Patient is sitting upright in bed using accessory muscles of respiration and tripoding. Unable to complete sentences. Patient is using her accessory muscles of respiration. No fever. No recent exposure to coronavirus. No history of DVT or PE. No fever. Still wheezing a lot Tachypneic Objective - Constitutional Vitals: Vital Signs - 12hr 08/29/19 08/29/19 08/29/19 14:51 15:28 19:17 Temperature 97.8 F 98.7 F Pulse Rate 111 H 104 H Pulse Rate [ 84 Bilateral] Respiratory 20 20 Rate Respiratory 19 Rate [Bilateral ] Blood Pressure 134/71 142/72 O2 Sat by Pulse 98 97 Oximetry 08/29/19 22:25 Temperature Pulse Rate Pulse Rate [ 99 H Bilateral] Respiratory Rate Respiratory 18 Rate [Bilateral ] Blood Pressure O2 Sat by Pulse Oximetry General appearance: Present: no acute distress, well-nourished - EENT Eyes: PERRL, EOM intact ENT: hearing intact, clear oral mucosa Ears: bilateral: normal - Neck Neck: supple, normal ROM - Respiratory Respiratory effort: normal Respiratory: bilateral: CTA - Breasts Breasts: normal - Cardiovascular Rhythm: regular Heart Sounds: Present: S1 & S2. Absent: gallop, rub Extremities: pulses intact, No edema, normal color, Full ROM - Gastrointestinal General gastrointestinal: Present: soft, non-tender, non-distended, normal bowel sounds - Genitourinary Female genitourinary: normal - Integumentary Integumentary: clear, warm, dry - Musculoskeletal Musculoskeletal: 1, strength equal bilaterally - Neurologic Neurologic: moves all extremities - Psychiatric Psychiatric: memory intact, appropriate mood/affect, intact judgment & insight - Labs CBC & Chem 7: 08/25/19 04:29 08/25/19 04:29 HEART Score - HEART Score Troponin: Troponin T < 0.010 ng/mL (0.00-0.029) 08/23/19 15:22
[2019-08-30] MEDS: IPRATROPIUM/ALBUTEROL SULFATE 3 ML AMPUL.NEB IH SCH ×3 (03:21→14:44)
[2019-08-30] MEDS: ARFORMOTEROL 15 MCG/2 ML NEBU IH SCH (07:53)
[2019-08-30] MEDS: BUDESONIDE 0.5 MG/2 ML NEBU IH SCH (07:53)
--- NOTE | 2019-08-30 09:16 | Discharge Summary ---
Providers - Providers Date of Admission: 08/24/19 16:00 Date of discharge: 08/30/19 Attending physician: SAMANTHA LERNER 08/23/19 18:16 Consult to Physician [CONS] Urgent Comment: Consulting Provider: MARK HAAS Physician Instructions: Reason For Exam: copd Primary care physician: REHABILITATION MEDICINE PHYSICIAN Hospitalization Condition: Stable Disposition: DC-01 TO HOME OR SELFCARE Core Measure Documentation - Palliative Care Palliative Care/ Comfort Measures: Not Applicable - Core Measures Any of the following diagnoses?: none Exam - Constitutional Vitals: Temp Pulse Resp BP Pulse Ox 98.4 F 93 H 20 155/79 95 08/30/19 04:47 08/30/19 07:56 08/30/19 07:56 08/30/19 04:47 08/30/19 07:57 Plan Follow up with: MAXI GARCIA MD [Primary Care Provider] - 3-5 Days MARK HAAS MD [Staff Physician] - 3-5 Days
[2019-08-30] MEDS: methylPREDNISolone Sod Succinate 40 MG/1 ML INJ IV SCH (11:56)
[2019-08-30] MEDS: ALPRAZolam 0.5 MG TAB PO PRN ×2 (11:56→20:11)
--- NOTE | 2019-08-30 13:35 | Progress Note ---
Assessment and Plan Patient alert, awake. Patient off the vapotherm. Patient is on 3 litres O2. O2 saturation 97%. Patient already has home O2. Patient some what anxious. Says breathing better to day. Patient discharged to go home. Patient going home on prednisone tapering doses, antibiotics, Bronchodilators. Continue home O2. Follow up on pulmonary problems with me in two weeks. - Patient Problems (1) COPD exacerbation Current Visit: Yes Status: Acute Plan to address problem: O2 3 litres via nasal canula. Albuterol/atrovent aerosol treatments. Continue Prednisone in tapering doses. Continue Zithromax. (2) Acute and chronic respiratory failure Current Visit: No Status: Acute Qualifiers: Respiratory failure complication: hypoxia Qualified Code(s): J96.21 - Acute and chronic respiratory failure with hypoxia Plan to address problem: O2 3 litres via nasal canula. Albuterol/atrovent aerosol treatments. Continue Prednisone in tapering doses. Continue Zithromax. (3) Hypertension Current Visit: Yes Status: Acute Qualifiers: Hypertension type: essential hypertension Qualified Code(s): I10 - Essential (primary) hypertension Plan to address problem: Management as per primary care. (4) Acute bronchitis Current Visit: No Status: Acute Plan to address problem: Patient is on Zithromax. Subjective Date of service: 08/30/19 Principal diagnosis: Acute respiratory failure with hypoxia, COPD exacerbation Interval history: Patient alert, awake. Patient off the vapotherm. Patient is on 3 litres O2. O2 saturation 97%. Patient already has home O2. Patient some what anxious. Says breathing better to day. Patient discharged to go home. Patient going home on prednisone tapering doses, antibiotics, Bronchodilators. Continue home O2. Follow up on pulmonary problems with me in two weeks. Objective Vital Signs - 12hr 08/30/19 08/30/19 08/30/19 04:47 07:56 07:57 Temperature 98.4 F Pulse Rate 93 H Pulse Rate [ 93 H Bilateral] Respiratory 20 Rate Respiratory 20 Rate [Bilateral ] Blood Pressure 155/79 O2 Sat by Pulse 95 95 Oximetry 08/30/19 08/30/19 08:46 12:32 Temperature 98.5 F 98.6 F Pulse Rate 90 103 H Pulse Rate [ Bilateral] Respiratory 19 19 Rate Respiratory Rate [Bilateral ] Blood Pressure 150/75 140/67 O2 Sat by Pulse 97 97 Oximetry Constitutional: no acute distress, alert Eyes: non-icteric ENT: oropharynx moist Neck: supple, no lymphadenopathy Effort: mildly labored Ascultation: Bilateral: diminished breath sounds, other (Prolonged expiratory phase.) Cardiovascular: regular rate and rhythm Gastrointestinal: normoactive bowel sounds, soft, non-tender Integumentary: normal Extremities: no cyanosis, no edema Neurologic: normal mental status, non-focal exam, pupils equal and round Psychiatric: anxious CBC and BMP: 08/25/19 04:29 08/25/19 04:29 ABG, PT/INR, D-dimer: ABG ABG pH 7.388 pH Units (7.350-7.450) 08/26/19 10:50 ABG pCO2 49.5 mm Hg 08/26/19 10:50 ABG pO2 61.0 mm Hg (80.0-90.0) L 08/26/19 10:50 ABG O2 Saturation 92.6 % (95.0-99.0) L 08/26/19 10:50 PT/INR, D-dimer PT 12.7 Sec. (12.2-14.9) 08/23/19 12:37 INR 0.97 (0.87-1.13) 08/23/19 12:37 Abnormal lab findings: Abnormal Labs 08/23/19 08/23/19 08/23/19 12:37 12:37 22:56 WBC RDW 17.6 H Seg Neutrophils % 71.1 H Seg Neuts % (Manual) Lymphocytes % (Manual) Seg Neutrophils # Man Lymphocytes # (Manual) ABG pO2 ABG HCO3 ABG O2 Saturation ABG Base Excess ABG Hemoglobin Oxyhemoglobin BUN Glucose 108 H POC Glucose 201 H Total Protein 6.2 L 08/24/19 08/25/19 08/25/19 06:23 04:29 04:29 WBC 17.1 H RDW 17.7 H Seg Neutrophils % Seg Neuts % (Manual) 95.0 H Lymphocytes % (Manual) 4.0 L Seg Neutrophils # Man 16.2 H Lymphocytes # (Manual) 0.7 L ABG pO2 ABG HCO3 ABG O2 Saturation ABG Base Excess ABG Hemoglobin Oxyhemoglobin BUN 26 H 32 H Glucose 178 H 152 H POC Glucose Total Protein 6.0 L 08/26/19 10:50 WBC RDW Seg Neutrophils % Seg Neuts % (Manual) Lymphocytes % (Manual) Seg Neutrophils # Man Lymphocytes # (Manual) ABG pO2 61.0 L ABG HCO3 29.1 H ABG O2 Saturation 92.6 L ABG Base Excess 3.4 H ABG Hemoglobin 11.5 L Oxyhemoglobin 90.5 L BUN Glucose POC Glucose Total Protein Allied health notes reviewed: RT
[2019-08-30] MEDS: HYDROmorphone 1 MG/1 ML INJ IV PRN ×2 (13:47→20:02)
[2019-08-30 16:14] VITALS: BP 155/79
--- NOTE | 2019-08-30 16:56 | Discharge Summary ---
Providers - Providers Date of Admission: 08/24/19 16:00 Date of discharge: 08/30/19 Attending physician: SAMANTHA LERNER 08/23/19 18:16 Consult to Physician [CONS] Urgent Comment: Consulting Provider: MARK HAAS Physician Instructions: Reason For Exam: copd Primary care physician: SECTIONIZER Hospitalization Condition: Stable Hospital course: 69-year-old -[place] female with history of COPD on 3 L home her oxygen , chronic respiratory failure and COPD comes in increasing shortness of breath not responding to nebulizer treatments at home. Has been having worsening symptoms for 8 hours. Cough productive of yellow to green sputum. Chest discomfort. Patient not responding to home nebulizer treatments. Patient transported to [facility] for further evaluation and treatment. Patient is sitting upright in bed using accessory muscles of respiration and tripoding. Unable to complete sentences. Patient is using her accessory muscles of respiration. No fever. No recent exposure to coronavirus. No history of DVT or PE. No fever. Patient had a very slow improvement. Was not responding to the usual treatments for Solu-Medrol IV antibiotics and duo nebs [id number]. Pulmonary consult was requested There was slow improvement. Brovana and Pulmicort was added By day 8 patient is back to baseline but still has some shortness of breath. Patient probably has end-stage lung disease Patient has regular follow-up with Dr. Johnson the aerologist 6 AM (1) Acute and chronic respiratory failure Current Visit: No Status: Acute Qualifiers: Respiratory failure complication: hypoxia Qualified Code(s): J96.21 - Acute and chronic respiratory failure with hypoxia Plan to address problem: Patient still short of breath If improved will discharge her tomorrow. Patient changed to inpatient. Patient improved slowly Near his baseline (2) Hypertension Current Visit: Yes Status: Acute Qualifiers: Hypertension type: essential hypertension Qualified Code(s): I10 - Essential (primary) hypertension Plan to address problem: Blood pressure under control (3) COPD exacerbation Current Visit: Yes Status: Acute Plan to address problem: Patient has supplemental oxygen at home 2 to 3 L nasal cannula oxygen. Patient to continue duo nebs tapering prednisone Dosepak no need for antibiotics anymore-patient had antibiotics for 8 days (4) DVT prophylaxis Current Visit: Yes Status: Acute Plan to address problem: SCD to bilateral lower extremities while in bed, patient is ambulatory. Patient is a full code Patient to follow-up with Dr. Johnson Disposition: DC-01 TO HOME OR SELFCARE Time spent for discharge: 35 minutes - Discharge Diagnoses (1) Acute respiratory failure with hypoxia Status: Acute Comment: Patient improved slowly (2) COPD exacerbation Status: Acute Comment: Patient improved slowly (3) Hypertension Status: Chronic Qualifiers: Hypertension type: essential hypertension Qualified Code(s): I10 - Essential (primary) hypertension Comment: Continue antihypertensives Core Measure Documentation - Palliative Care Palliative Care/ Comfort Measures: Not Applicable - Core Measures Any of the following diagnoses?: none Exam - Constitutional Vitals: Temp Pulse Resp BP Pulse Ox 98.8 F 111 H 20 155/79 97 08/30/19 15:55 08/30/19 15:55 08/30/19 15:55 08/30/19 15:55 08/30/19 15:55 General appearance: Present: no acute distress, well-nourished - EENT Eyes: Present: PERRL ENT: hearing intact, clear oral mucosa - Neck Neck: Present: supple, normal ROM - Respiratory Respiratory effort: normal Respiratory: bilateral: CTA - Cardiovascular Heart rate: 78 Rhythm: regular Heart Sounds: Present: S1 & S2. Absent: rub, click - Extremities Extremities: no ischemia, pulses intact, pulses symmetrical, No edema Peripheral Pulses: within normal limits - Abdominal General gastrointestinal: Present: soft, non-tender, non-distended, normal bowel sounds Female genitourinary: Present: normal - Rectal Rectal Exam: deferred - Integumentary Integumentary: Present: clear, warm, dry - Musculoskeletal Musculoskeletal: gait normal, strength equal bilaterally - Psychiatric Psychiatric: appropriate mood/affect, intact judgment & insight - Neurologic Neurologic: CNII-XII intact, moves all extremities - Allied Health Allied health notes reviewed: nursing, case management Plan Activity: no restrictions Diet: low salt Follow up with: PRIMARY CAREMD [Primary Care Provider] - 3-5 Days MARK HAAS MD [Staff Physician] - 3-5 Days Prescriptions: Arformoterol Nebu [Brovana Nebu] 15 mcg IH Q12HRT #60 ml DULoxetine [Cymbalta] 90 mg PO QDAY #90 capsule Torsemide [Demadex] 20 mg PO QDAY #30 tablet Ipratropium/Albuterol Sulfate [DUONEB *Not for PRN Use*] 1 ampul IH BIDRT #50 ampul.neb Potassium Chloride [K-Dur] 20 meq PO DAILY #30 tablet levETIRAcetam [Keppra TAB] 500 mg PO BID #60 tablet Melatonin [Melatonin 10MG RAPDIS] 10 mg PO QHS PRN #30 tab.rapdis PRN Reason: Sleep oxyCODONE /ACETAMINOPHEN [Percocet 5/325 mg] 1 tab PO Q6HR PRN #14 tablet PRN Reason: Pain Pantoprazole [Protonix TAB] 40 mg PO QDAY #30 tablet Budesonide [Pulmicort Respules] 0.5 mg IH Q12HRT #60 nebu traMADoL [Ultram 50 MG tab] 50 mg PO BID PRN #14 tablet PRN Reason: Pain ALPRAZolam [Xanax TAB] 0.5 mg PO TID PRN #15 tablet PRN Reason: Anxiety
--- NOTE | 2019-08-30 18:57 | Progress Note ---
Assessment and Plan Day #2 Patient still short of breath and wheezing Minimal response to nebulizer treatments and steroids and antibiotics Slight improvement Day #3 Patient still short of breath and wheezing Minimal response to nebulizer treatments and steroids and antibiotics Slight improvement Day#4 Still wheezing and Tavhypneic Day #5 Still wheezing a lot Tachypneic Day #6 Tachypneic Sob++++ (1) Acute and chronic respiratory failure Current Visit: No Status: Acute Qualifiers: Respiratory failure complication: hypoxia Qualified Code(s): J96.21 - Acute and chronic respiratory failure with hypoxia Plan to address problem: Patient still short of breath and tachypneic If improved will discharge her tomorrow. Patient maybe ESLD (2) Hypertension Current Visit: Yes Status: Acute Qualifiers: Hypertension type: essential hypertension Qualified Code(s): I10 - Essential (primary) hypertension Plan to address problem: Monitor blood pressure every shift, continue medical management, supportive care. (3) COPD exacerbation Current Visit: Yes Status: Acute Plan to address problem: Supplemental oxygen, nebulizer therapy, IV steroid therapy, chest x-ray, noninvasive positive pressure ventilation as clinically indicated, empiric IV antibiotic therapy. Pulmonary team consulted in ED. (4) DVT prophylaxis Current Visit: Yes Status: Acute Plan to address problem: SCD to bilateral lower extremities while in bed, patient is ambulatory. (5) Advance care planning Current Visit: Yes Status: Acute Plan to address problem: Disease education conducted, patient knowledges understanding and agreement with care plan, patient discussed prognosis, patient is full code, +30 minutes. Subjective Date of service: 08/28/19 Principal diagnosis: Acute respiratory failure with hypoxia, COPD exacerbation Interval history: Day#6 69-year-old -[place] female with history of COPD on 3 L home her oxygen , chronic respiratory failure and COPD comes in increasing shortness of breath not responding to nebulizer treatments at home. Has been having worsening symptoms for 8 hours. Cough productive of yellow to green sputum. Chest discomfort. Patient not responding to home nebulizer treatments. Patient transported to [facility] for further evaluation and treatment. Patient is sitting upright in bed using accessory muscles of respiration and tripoding. Unable to complete sentences. Patient is using her accessory muscles of respiration. No fever. No recent exposure to coronavirus. No history of DVT or PE. No fever. Still wheezing a lot Tachypneic Objective - Constitutional Vitals: Vital Signs - 12hr 08/30/19 08/30/19 08/30/19 07:56 07:57 08:46 Temperature 98.5 F Pulse Rate 90 Pulse Rate [ 93 H Bilateral] Respiratory 19 Rate Respiratory 20 Rate [Bilateral ] Blood Pressure 150/75 O2 Sat by Pulse 95 97 Oximetry 08/30/19 08/30/19 08/30/19 12:32 14:44 15:55 Temperature 98.6 F 98.8 F Pulse Rate 103 H 111 H Pulse Rate [ 94 H Bilateral] Respiratory 19 20 Rate Respiratory 20 Rate [Bilateral ] Blood Pressure 140/67 155/79 O2 Sat by Pulse 97 97 Oximetry General appearance: Present: no acute distress, well-nourished - EENT Eyes: PERRL, EOM intact ENT: hearing intact, clear oral mucosa Ears: bilateral: normal - Neck Neck: supple, normal ROM - Respiratory Respiratory effort: normal Respiratory: bilateral: CTA, rhonchi, wheezing - Breasts Breasts: normal - Cardiovascular Heart rate: 78 Rhythm: regular Heart Sounds: Present: S1 & S2. Absent: gallop, rub Extremities: pulses intact, No edema, normal color, Full ROM - Gastrointestinal General gastrointestinal: Present: soft, non-tender, non-distended, normal bowel sounds - Genitourinary Female genitourinary: normal - Integumentary Integumentary: clear, warm, dry - Musculoskeletal Musculoskeletal: 1, strength equal bilaterally - Neurologic Neurologic: moves all extremities - Psychiatric Psychiatric: memory intact, appropriate mood/affect, intact judgment & insight - Labs CBC & Chem 7: 08/25/19 04:29 08/25/19 04:29 HEART Score - HEART Score Troponin: Troponin T < 0.010 ng/mL (0.00-0.029) 08/23/19 15:22
== END 2019-08-30 20:00 | disposition home or self-care (01) | DRG 189 ==
LOC: ED 09:45 → 3B-SURG 18:32 → OBSVTOIN 08-24 16:00
PROVIDERS: ADMIT Internal Medicine; ATTEND Internal Medicine
PROC: 4A033R1 Measurement of Arterial Saturation, Peripheral, Percutaneous Approach (ICD-10-PCS; principal; 2019-08-26)
DX: J96.21 Acute and chronic respiratory failure with hypoxia (principal); J44.1 Chronic obstructive pulmonary disease with (acute) exacerbation; J44.0 Chronic obstructive pulmonary disease with (acute) lower respiratory infection; J20.9 Acute bronchitis, unspecified; I50.9 Heart failure, unspecified; I11.0 Hypertensive heart disease with heart failure; F41.9 Anxiety disorder, unspecified; M19.90 Unspecified osteoarthritis, unspecified site; M06.9 Rheumatoid arthritis, unspecified; G89.29 Other chronic pain; Z88.8 Allergy status to other drugs, medicaments and biological substances; Z99.81 Dependence on supplemental oxygen
CPT/HCPCS: 36415; 36600; 71045; 80048; 80053; 82803; 82962; 83880; 84484; 85007; 85025; 85610; 93005; 94640; 94644; 94760; G0378; J0360; J0456; J1100; J1170; J1885; J2920; J3475; J7050

== ENCOUNTER 2019-09-13 17:35 | Emergency (ER) | payer MEDICARE ==
--- NOTE | 2019-09-13 19:42 | Emergency Department Report ---
Blank Doc - Documentation Documentation: 69-year-old female that presents with ENA, general weakness and had a trip a f all with lower back pains. Denies any other injuries or trauma. This initial assessment/diagnostic orders/clinical plan/treatment(s) is/are subject to change based on patient's health status, clinical progression and re- assessment by fellow clinical providers in the ED. Further treatment and workup at subsequent clinical providers discretion. Patient/guardians urged not to elope from the ED as their condition may be serious if not clinically assessed and managed. Initial orders include: 1- Patient sent to MAIN ED for further evaluation and treatment 2- cardiac work up 3- xrays
[2019-09-13 19:56] LABS: Basophils # (Auto) 0.1 K/mm3 (0.0-0.1); Basophils % (Auto) 0.9 % (0.0-1.8); Eosinophils # (Auto) 0.1 K/mm3 (0.0-0.4); Eosinophils % (Auto) 1.3 % (0.0-4.3); Hematocrit 35.5 % (30.3-42.9); Hemoglobin 11.8 gm/dl (10.1-14.3); Lymphocytes # (Auto) 0.9 K/mm3 (1.2-5.4); Lymphocytes % (Auto) 11.9 % (13.4-35.0); Mean Corpuscular HGB Conc 33 % (30-34); Mean Corpuscular Volume 91 fl (79-97); Monocytes # (Auto) 0.2 K/mm3 (0.0-0.8); Monocytes % (Auto) 2.9 % (0.0-7.3); Platelet Count 239 K/mm3 (140-440); Red Cell Distribution Width 18.5 % (13.2-15.2)
[2019-09-13 20:23] LABS: INR 0.88 (0.87-1.13)
[2019-09-13 20:24] LABS: Partial Thromboplastin Time 25.7 Sec. (24.2-36.6)
[2019-09-13 20:25] LABS: Alanine Aminotransferase 12 units/L (7-56); Albumin 4.3 g/dL (3.9-5); BUN/Creatinine Ratio 13; Blood Urea Nitrogen 15 mg/dL (7-17); Calcium 9.6 mg/dL (8.4-10.2); Hemolysis Index 5
--- NOTE | 2019-09-13 20:40 | XRay Report ---
LUMBAR SPINE 2 VIEWS INDICATION / CLINICAL INFORMATION: Low back pain. COMPARISON: None available. 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 There is moderate scoliosis of lumbar spine with convexity towards right centered at L3. No fracture or subluxation is seen. Signer Name: Fransico Sherman MD Signed: 09/13/2019 8:35 PM Workstation Name: [id number]
--- NOTE | 2019-09-13 20:41 | XRay Report ---
CHEST 2 VIEWS INDICATION / CLINICAL INFORMATION: Shortness of breath. COMPARISON: Chest x-ray 09/05/2019 FINDINGS: SUPPORT DEVICES: None. HEART / MEDIASTINUM: Cardiac silhouette is enlarged with pulmonary venous hypertension and pleural th ickening/trace amount of fluid in both major fissures. LUNGS / PLEURA: No significant pulmonary or pleural abnormality. No pneumothorax. ADDITIONAL FINDINGS: No significant additional findings. IMPRESSION: 1. Cardiomegaly with probable tiny bilateral pleural effusions Signer Name: Fransico Sherman MD Signed: 09/13/2019 8:36 PM Workstation Name: [id number]
--- NOTE | 2019-09-13 22:50 | Emergency Department Report ---
ED Back Pain/Injury HPI - General Chief Complaint: Dyspnea/Respdistress Stated Complaint: ENA/FLU LIKE SZ Time Seen by Provider: 09/13/19 19:40 Source: EMS Limitations: No Limitations - History of Present Illness Initial Comments: CC: "I slipped and fell last night." HPI: This ia a 69 yo female with hx of CHF, COPD, GERD, chronic back pain, atrial fibrillation who presents with lower back and leg stiffness after fall yesterday. She had on slippery socks. She slipped after getting out of bed last night. She normally takes Percocet for back pain. She does not have this medication. She has been unable to follow up with PCP. She has been hospitalized several times recent for dyspnea related to CHF and COPD. Patient arrived via EMS. Initially complaints were dyspnea, flu-like symptoms. Mrs. Dominguez was recently dc'd from this hospital 6 dys ago for dyspnea shabbir tment and evaluation. Mrs. Dominguez has been admitted 6 times within the last 2 months. MD Complaint: back pain, fall -: Last night Similar Symptoms Previously: Yes Place: home Severity: moderate Quality: dull, aching Consistency: constant Worsens With: movement Context: fall - Related Data Previous Rx's Medication Instructions Recorded Last Taken Type Acetaminophen [Acetaminophen TAB] 1,000 mg PO Q6H PRN tablet 10/13/18 06/26/19 13:10 Rx Budesonide [Pulmicort Respules] 0.5 mg IH Q12HRT #14 nebu 10/13/18 Unknown Rx buPROPion XL [Wellbutrin XL] 150 mg PO QDAY #30 tablet 10/13/18 06/26/19 13:09 Rx cloNIDine-TTS PATCH [Catapres-Tts 0.2 mg TD Th #7 patch 10/13/18 Unknown Rx 0.2mg Patch] Aspirin EC [Halfprin EC] 81 mg PO QDAY #30 tablet. 06/26/19 Unknown Rx ALBUTEROL NEB's [Proventil 0.083% 2.5 mg IH Q4HRT PRN #30 nebu 06/27/19 Unknown Rx NEBS] Azithromycin [Zithromax TAB] 500 mg PO QDAY #4 tablet 06/27/19 Unknown Rx Ondansetron (Nf) [Zofran TAB] 8 mg PO Q8HR PRN #30 tablet 06/27/19 Unknown Rx Ondansetron [Zofran ODT TAB] 4 mg PO Q8HR PRN #14 tab.rapdis 07/22/19 Unknown Rx ALPRAZolam [Xanax TAB] 0.5 mg PO TID PRN #15 tablet 08/30/19 Unknown Rx Arformoterol Nebu [Brovana Nebu] 15 mcg IH Q12HRT #60 ml 08/30/19 Unknown Rx Budesonide [Pulmicort Respules] 0.5 mg IH Q12HRT #60 nebu 08/30/19 Unknown Rx DULoxetine [Cymbalta] 90 mg PO QDAY #90 capsule 08/30/19 Unknown Rx Ipratropium/Albuterol Sulfate 1 ampul IH BIDRT #50 ampul.neb 08/30/19 Unknown Rx [DUONEB *Not for PRN Use*] Melatonin [Melatonin 10MG RAPDIS] 10 mg PO QHS PRN #30 tab.rapdis 08/30/19 Unknown Rx Pantoprazole [Protonix TAB] 40 mg PO QDAY #30 tablet 08/30/19 Unknown Rx Potassium Chloride [K-Dur] 20 meq PO DAILY #30 tablet 08/30/19 Unknown Rx Torsemide [Demadex] 20 mg PO QDAY #30 tablet 08/30/19 Unknown Rx levETIRAcetam [Keppra TAB] 500 mg PO BID #60 tablet 08/30/19 Unknown Rx predniSONE [Deltasone] 10 mg PO .TAPER #21 tab 08/30/19 Unknown Rx traMADoL [Ultram 50 MG tab] 50 mg PO BID PRN #14 tablet 08/30/19 Unknown Rx LORazepam [Ativan] 0.5 mg PO BID #60 tab 09/06/19 Unknown Rx LORazepam [Ativan] 2 mg PO QHS #30 tablet 09/06/19 Unknown Rx Prednisone [predniSONE 10 mg 10 mg PO .TAPER #1 tab.ds.pk 09/06/19 Unknown Rx (6-Day Pack, 21 Tabs)] oxyCODONE /ACETAMINOPHEN [Percocet 1 tab PO Q6HR PRN #14 tablet 09/07/19 Unknown Rx 5/325 mg] oxyCODONE /ACETAMINOPHEN [Percocet 1 tab PO Q6HR PRN #15 tablet 09/13/19 Unknown Rx 5/325] Allergies Allergy/AdvReac Type Severity Reaction Status Date / Time zolpidem [From Ambien] Allergy Unknown Verified 09/05/19 11:36 ED Review of Systems ROS: Stated complaint: ENA/FLU LIKE SZ Other details as noted in HPI Comment: All other systems reviewed and negative Constitutional: denies: fever, malaise Respiratory: shortness of breath Cardiovascular: denies: chest pain Gastrointestinal: denies: abdominal pain, nausea, vomiting ED Past Medical Hx - Past Medical History Previous Medical History?: Yes Hx Hypertension: Yes Hx Heart Attack/AMI: No Hx Congestive Heart Failure: Yes Hx Deep Vein Thrombosis: No Hx Pulmonary Embolism: No Hx GERD: Yes Hx Renal Disease: No Hx Arthritis: Yes Hx Seizures: No Hx Asthma: No Hx COPD: Yes Hx Tuberculosis: No Hx Dementia: No Additional medical history: chronic back pain - Surgical History Past Surgical History?: Yes Hx Coronary Stent: No Hx Pacemaker: No Hx Internal Defibrillator: No Hx Cholecystectomy: No Hx Appendectomy: No Additional Surgical History: hernia repair and lower back/ cycst removal - Social History Smoking Status: Former Smoker Substance Use Type: None - Medications Home Medications: Home Medications Medication Instructions Recorded Confirmed Last Taken Type Acetaminophen [Acetaminophen TAB] 1,000 mg PO Q6H PRN tablet 10/13/18 09/06/19 06/26/19 13:10 Rx Budesonide [Pulmicort Respules] 0.5 mg IH Q12HRT #14 nebu 10/13/18 09/06/19 Un known Rx buPROPion XL [Wellbutrin XL] 150 mg PO QDAY #30 tablet 10/13/18 09/06/19 06/26/19 13:09 Rx cloNIDine-TTS PATCH [Catapres-Tts 0.2 mg TD Th #7 patch 10/13/18 09/06/19 Unknown Rx 0.2mg Patch] Aspirin EC [Halfprin EC] 81 mg PO QDAY #30 tablet. 06/26/19 09/06/19 Unknown Rx ALBUTEROL NEB's [Proventil 0.083% 2.5 mg IH Q4HRT PRN #30 nebu 06/27/19 09/06/19 Unknown Rx NEBS] Azithromycin [Zithromax TAB] 500 mg PO QDAY #4 tablet 06/27/19 09/06/19 Unknown Rx Ondansetron (Nf) [Zofran TAB] 8 mg PO Q8HR PRN #30 tablet 06/27/19 09/06/19 Unknown Rx Ondansetron [Zofran ODT TAB] 4 mg PO Q8HR PRN #14 tab.rapdis 07/22/19 09/06/19 Unknown Rx ALPRAZolam [Xanax TAB] 0.5 mg PO TID PRN #15 tablet 08/30/19 09/06/19 Unknown Rx Arformoterol Nebu [Brovana Nebu] 15 mcg IH Q12HRT #60 ml 08/30/19 09/06/19 Unknown Rx Budesonide [Pulmicort Respules] 0.5 mg IH Q12HRT #60 nebu 08/30/19 09/06/19 Unknown Rx DULoxetine [Cymbalta] 90 mg PO QDAY #90 capsule 08/30/19 09/06/19 Unknown Rx Ipratropium/Albuterol Sulfate 1 ampul IH BIDRT #50 ampul.neb 08/30/19 09/06/19 Unknown Rx [DUONEB *Not for PRN Use*] Melatonin [Melatonin 10MG RAPDIS] 10 mg PO QHS PRN #30 tab.rapdis 08/30/19 09/06/19 Unknown Rx Pantoprazole [Protonix TAB] 40 mg PO QDAY #30 tablet 08/30/19 09/06/19 Unknown Rx Potassium Chloride [K-Dur] 20 meq PO DAILY #30 tablet 08/30/19 09/06/19 Unknown Rx Torsemide [Demadex] 20 mg PO QDAY #30 tablet 08/30/19 09/06/19 Unknown Rx levETIRAcetam [Keppra TAB] 500 mg PO BID #60 tablet 08/30/19 09/06/19 Unknown Rx predniSONE [Deltasone] 10 mg PO .TAPER #21 tab 08/30/19 09/06/19 Unknown Rx traMADoL [Ultram 50 MG tab] 50 mg PO BID PRN #14 tablet 08/30/19 09/06/19 Unknown Rx LORazepam [Ativan] 0.5 mg PO BID #60 tab 09/06/19 Unknown Rx LORazepam [Ativan] 2 mg PO QHS #30 tablet 09/06/19 Unknown Rx Prednisone [predniSONE 10 mg 10 mg PO .TAPER #1 tab.ds.pk 09/06/19 Unknown Rx (6-Day Pack, 21 Tabs)] oxyCODONE /ACETAMINOPHEN [Percocet 1 tab PO Q6HR PRN #14 tablet 09/07/19 Unknown Rx 5/325 mg] oxyCODONE /ACETAMINOPHEN [Percocet 1 tab PO Q6HR PRN #15 tablet 09/13/19 Unknown Rx 5/325] ED Physical Exam - General Limitations: No Limitations General appearance: alert, in no apparent distress, other (Pleasant jovial talkative appears comfortable. Transfers with ease.) - Head Head exam: Present: atraumatic, normocephalic - Eye Eye exam: Present: normal appearance - ENT ENT exam: Present: mucous membranes moist - Neck Neck exam: Present: normal inspection, full ROM - Respiratory Respiratory exam: Present: normal lung sounds bilaterally. Absent: respiratory distress, wheezes, rales, rhonchi - Cardiovascular Cardiovascular Exam: Present: regular rate, normal rhythm, normal heart sounds. Absent: systolic murmur, diastolic murmur, rubs, gallop - GI/Abdominal GI/Abdominal exam: Present: soft, normal bowel sounds. Absent: distended, tenderness, guarding, rebound - Extremities Exam Extremities exam: Present: normal inspection - Back Exam Back exam: Present: normal inspection. Absent: tenderness, CVA tenderness (R), CVA tenderness (L), muscle spasm, paraspinal tenderness - Neurological Exam Neurological exam: Present: alert, oriented X3 - Psychiatric Psychiatric exam: Present: normal affect, normal mood - Skin Skin exam: Present: warm, dry, intact, normal color. Absent: rash ED Course Vital Signs 09/13/19 18:05 Temperature 99.4 F Pulse Rate 113 H Respiratory 20 Rate Blood Pressure 105/66 O2 Sat by Pulse 99 Oximetry ED Medical Decision Making - Lab Data Result diagrams: 09/13/19 19:46 09/13/19 19:46 Laboratory Results - last 24 hr 09/13/19 09/13/19 09/13/19 19:46 19:46 19:46 WBC 7.9 RBC 3.90 Hgb 11.8 Hct 35.5 MCV 91 MCH 30 MCHC 33 RDW 18.5 H Plt Count 239 Lymph % (Auto) 11.9 L Pershing % (Auto) 2.9 Eos % (Auto) 1.3 Baso % (Auto) 0.9 Lymph # 0.9 L Pershing # 0.2 Eos # 0.1 Baso # 0.1 Seg Neutrophils % 83.0 H Seg Neutrophils # 6.5 PT 12.1 L INR 0.88 APTT 25.7 Sodium 141 Potassium 4.3 Chloride 96.6 L Carbon Dioxide 30 Anion Gap 19 BUN 15 Creatinine 1.2 Estimated GFR 54 BUN/Creatinine Ratio 13 Glucose 125 H Calcium 9.6 Total Bilirubin 0.30 AST 14 ALT 12 Alkaline Phosphatase 83 Troponin T < 0.010 Total Protein 7.1 Albumin 4.3 Albumin/Globulin Ratio 1.5 - EKG Data EKG shows normal: sinus rhythm, axis, intervals, QRS complexes, ST-T waves Rate: normal - EKG Data Interpretation: normal EKG - Radiology Data Radiology results: report reviewed Chest radiograph: Small bilateral pleural effusion according to radiology impression Lumbar spine 2 views: Anterior posterior fusion hardware laminectomy defects L3-S1 no fracture or subluxation seen according to radiology impression - Medical Decision Making 1. Back pain status post fall history of chronic back pain, patient is neurolo gically intact. She transfers with ease. Previously prescription for Percocet. She received analgesia in the emergency department 2. Reports of flulike illness, dyspnea: No indication of respiratory distress. No pneumonia. No coughing observed in the emergency department. I do not suspect acute infection at this time. Patient is discharged home. Critical care attestation.: If time is entered above; I have spent that time in minutes in the direct care of this critically ill patient, excluding procedure time. ED Disposition Clinical Impression: Back pain, History of COPD, History of CHF (congestive heart failure), Fall Disposition: DC-01 TO HOME OR SELFCARE Is pt being admited?: No Does the pt Need Aspirin: No Condition: Stable Prescriptions: oxyCODONE /ACETAMINOPHEN [Percocet 5/325] 1 tab PO Q6HR PRN #15 tablet PRN Reason: Pain Referrals: PRIMARY CARE, [Referring] - NANNETTE
[2019-09-13] MEDS ORDERED: oxyCODONE /ACETAMINOPHEN 5-325MG TAB PO ONE (23:31)
[2019-09-13] MEDS ORDERED: MORPHINE 4 MG/1 ML INJ IM ONE (23:31)
[2019-09-13] MEDS ORDERED: oxyCODONE /ACETAMINOPHEN 5-325MG TAB ONE (23:33)
[2019-09-13] MEDS ORDERED: MORPHINE 4 MG/1 ML INJ ONE (23:33)
[2019-09-14 01:51] VITALS: BP 138/68
== END 2019-09-14 02:08 | disposition home or self-care (01) ==
LOC: ED 17:35
DX: M54.5 Low back pain (principal); Z88.6 Allergy status to analgesic agent; W18.39XA Other fall on same level, initial encounter; Y93.89 Activity, other specified; Y92.89 Other specified places as the place of occurrence of the external cause; Y99.8 Other external cause status
CPT/HCPCS: 36415; 71046; 72100; 80053; 84484; 85025; 85610; 85730; 93005; 96372; 99284; J2270